=== PATIENT | male | born 1935 | race Caucasian/White ===

== ENCOUNTER 2018-08-21 11:37 | Day surgery (SDC) | payer MEDICARE, SELFPAY ==
--- NOTE | 2018-08-17 18:06 | PCM.HP.BLA ---
History and Physical Date of Admission: 08/21/18 HISTORY AND PHYSICAL ? Eben Pardo 1935 ? REFERRING PHYSICIAN: ??Mariano Ocampo MD ? CHIEF COMPLAINT: ??Rectal Bleeding ? HPI: The patient is a 82 year old male referred for endoscopy. ?Eben notes a 3 day history of blood per rectum. ?He started with a feeling of nausea and abdominal cramping. ?He then noted bright red blood per rectum. ?Since that time has noted blood in the toilet bowl. ?He does not note that the blood is mixed within the stools. ?He is not no tarry stools. ?The first day he had the symptoms he vomited. ?He is uncertain whether the start of this was a case of stomach flu or food poisoning. ?He denied blood in his vomitus. ? ? Eben?has??undergone prior endoscopy. ?He had colonoscopy performed by Dr. Gandhi in 2001 for which she was found to have a tortuous colon. ?He had upper endoscopy for reflux in 2016. ?This was unremarkable. ?He is still noting reflux symptoms. ? He does not appear pale. ?He denies dizziness or other symptoms of hypervolemia or anemia.??Laboratory parameters including a CBC are currently pending. ? The patient is being seen by me today at the request of Dr.?Mariano Ocampo MD?for my opinion and advice regarding blood per rectum with continued bleeding.? ? ? PAST?MEDICAL?HISTORY PAST MEDICAL HISTORY Diagnosis Date ? ?History of Malignant Neoplasm of Skin: BCC &?SCC 09/11/2009 ? Allergic rhinitis 09/18/2009 ? Dr. Mccormack, immunotherapy. ? 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 Cervicalgia 11/29/2005 ? Chronic prostatitis 01/02/2013 ? Depression ? ? Disorder of scapula 08/03/2017 ? Diverticulosis of colon 06/28/2001 ? Tortuous colon ? ELEVATED PROSTATE SPECIFIC ANTIGEN 10/19/2007 ? PSA 3.8 in 11-17, 4.7 in 06-19, 4.3 in 09-19: [facility] rec routine follow up ? Environmental allergies ? ? Gastritis 08/13/1999 ? GENERAL OSTEOARTHROSIS 11/29/2005 ? GOUT NOS 09/03/2008 ? Uric acid 5.8 in 08-20, 7.9 in 10-20 (during acute attack) ? Hearing loss of both ears 01/07/2014 ? Hypertrophy of prostate with urinary obstruction and other lower urinary tract symptoms (LUTS) 10/19/2007 ? Lumbago 09/03/2008 ? MRI : small central herniation at L4-5, mild DDD L4-5 and L5-S1 Rec Tylenol and PT in 08-20: need to review old MRI and consider spinal stenosis Reviewed the importance of weight loss as of 08-20 ? Periodic limb movement disorder (PLMD) 07/19/2007 ? 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 Pulmonary nodules/lesions, multiple 02/08/2012 ? Sleep apnea, obstructive 07/19/2007 ? Can't stand CPAP. I'm not using it anymore. ? Snoring ? PAST?SURGICAL?HISTORY PAST SURGICAL HISTORY Procedure Laterality Date ? APPENDECTOMY ? 1945 ? COLONOSCOP W/ OR W/O [facility] SPEC ? 06/28/2001 ? Colonoscopy ? EGD W/O OR W/BRUSH/WASH ? 08/02/2001 ? EGD ? EGD W/O OR W/BRUSH/WASH ? 12/15/2015 ? EGD ? PAST SURGICAL HISTORY OF ? 2010 ? cysts, skin lesions, basal cell cancer ? PROSTATE BIOPSY ? August 2012 ? ? ? CURRENT?MEDICATIONS ? Current Outpatient Medications: peg 3350-Electrolytes (GOLYTELY) 236-22.74-6.74 -5.86 gram suspension Take 4,000 mL by mouth one time only for 1 dose. Refer to printed prep instructions from your doctor. amLODIPine (NORVASC) 2.5 mg tablet Take 1 tablet by mouth once daily. ranitidine (ZANTAC) 150 mg tablet take 2 tablets by mouth twice a day atorvastatin (LIPITOR) 10 mg tablet Take 1 tablet by mouth daily at bedtime. finasteride (PROSCAR) 5 mg tablet Take 1 tablet by mouth once daily. ketoconazole (NIZORAL) 2 % shampoo WASH FACE AND EARS - AND LET SIT FOR 5 MINUTES as directed ALTERN... ?(REFER TO PRESCRIPTION NOTES). fluticasone 50 mcg/actuation nasal spray Use 2 Sprays in each nostril once daily as needed for Cold/Allergy Symptoms. Rinse mouth after use. VIT C/DL-E AC/LUT/COPPER/ZNOX (PRESERVISION ORAL) Take 1 Each by mouth once daily. Sodium Chloride (OCEAN NASAL) 0.65 % NASAL [place] ? ? No current facility-administered medications for this visit.? ? ALLERGIES:?Gabapentin; Mobic [Meloxicam]; Sulfa (Sulfonamide Antibiotics) ? PERSONAL HISTORY:? 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 ??Substance and Sexual Activity ?Alcohol use: No ?Drug use: No ?Sexual activity: Never ??Other Topics ?Concerns: ?Not on file ??Social History Narrative ?Not on file ?? ? FAMILY HISTORY:? FAMILY?HISTORY FAMILY HISTORY Problem Relation Age of Onset ? Heart Father ?ID age 60s ? Cancer Mother ?Pt states does not remember type ? Prostate Cancer Brother ? ? GI Sister ?gastrectomy ? other (fibromyalgia) Sister ? ? No Known Problems Other ?Lung disease ? ? REVIEW OF SYMPTOMS: ??The review of systems data was entered by the nurse and reviewed by me ? There are no exam notes on file for this visit. ? ? PHYSICAL EXAMINATION: ? General: ?The patient is 82 year old male, well nourished, well hydrated in no acute distress. ?The patient is oriented to time, place, and person. ? VITALS:?Blood pressure 124/66, pulse 60, temperature 37 ?C (98.6 ?F), temperature source Temporal Artery, resp. rate 18, weight 83.5 kg (184 lb).?Body mass index is 28.39 kg/m?.? ? HEENT: ?Normal cephalic, ataumatic, pupils are equally round, sclera are anicteric, mucous membranes are moist, oropharynx is clear. ?Neck has no masses, asymmetry or lymphadenopathy. ?Thyroid is unremarkable. ? Respiratory: ?Clear to auscultation and percussion. ?Normal respiratory excursion and pattern. ? Cardiac: ?Examination is regular rate and rhythm. ? Abdominal exam: ?Soft, nontender, ?with no palpable masses. ?No hepatosplenomegaly. ?No palpable hernias. ? Rectal exam:?exam deferred ? Extremities: ?no clubbing, cyanosis or edema. ?No adenopathy. ? Other: ? LABORATORY VALUES: As Noted ? RADIOLOGIC STUDIES: ?As Noted ? Assessment ? IMPRESSION:?Rectal bleeding, Reflux Disease ? PLAN: ?I plan to perform upper and lower?endoscopy. ??We discussed the risks and benefits of the planned endoscopy. ?I have informed the patient that complications can occur including failure to complete the endoscopy and perforation. ?The patient had the opportunity to ask questions concerning the planned endoscopy. ?My staff has also explained the procedure to the patient in understandable terms and has given the patient printed material concerning the procedure. ?The patient freely consents to surgery. ? I plan to use golytely bowel preparation for endoscopy ? I plan for monitored anesthetic care.?-?given the fact that the patient had tortuous colon. ?Last attempt at endoscopy. ? Diagnoses:?(K62.5) Rectal bleeding ?(primary encounter diagnosis) (K21.9) Gastroesophageal reflux disease without esophagitis ? My findings have been communicated to Dr.??Mariano Ocampo MD?via shared medical record. ?This note will be forwarded to Dr. Mariano Ocampo MD. ?? Return to Clinic: The patient is instructed to follow-up with me?after the testing has been completed. ? Hardik Maza MD
[2018-08-21] VITALS (7 sets, daily range): BP systolic 119–131; BP diastolic 62–75; PULSE 60–88; RESP 16–18; TEMP 36.1–36.2; O2SAT 96–100; BMI 28.3
--- NOTE | 2018-08-21 12:45 | COLBX_PTH ---
PATIENT: EVERTON JORGENSEN LOC: EN U#:[id number] AGE/SX: 82/M ROOM: RE08/21/[address]: Dr. Hardik Maza MD : 1935 BED: DIS: 08/21/2018 SPEC #: [id number] RECD: 08/21/18 15:33 STATUS: JOLIE GHULAM #: [id number] BELEN: 08/21/18 12:[address]: Hardik Maza DEPT: SURGICAL PATHOLOGY RECD BY: lEio Butler ENTERED: 08/22/18 09:18 SP TYPE: COLON BX OTHR DR: Dr. Mariano Ocampo MD Tissues: A - Gastric mucous membrane B - COLON BIOPSY C - Sigmoid colon biopsy Procedures: Surgery Specimen Level IV HEADER OPERATION: [place] [place] DIAGNOSIS: GERD, rectal bleeding TISSUE SUBMITTED: A - Antral biopsy for histo and H. pylori, B - Biopsy at 40 cm, mild colitis, C - Polyps distal sigmoid MICROSCOPIC DIAGNOSIS A. Gastric antrum, biopsy: Chronic gastritis, mild to moderate. See comment. B. Colon at 40 cm, biopsy: Focal mucosal hemorrhage. No evidence of colitis. C. Distal sigmoid colon polyp, biopsy: Fragments of inflammatory polyp. AM:ivonne 08/23/18 COMMENT A. The results of immunohistochemistry for Helicobacter pylori will be reported separately ([id number]). B. Clinical correlation is suggested. MICROSCOPIC DESCRIPTION Slides are reviewed. GROSS DESCRIPTION A - Received in fixative is one container labeled with the patient's name and designated antral biopsy. The specimen consists of one irregular fragment of light hsieh soft tissue that measures 0.4 x 0.3 x 0.1 cm. The specimen is totally submitted in one cassette. B - Received in fixative is one container labeled with the patient's name and designated biopsy at 40 cm, mild colitis. The specimen consists of two irregular fragments of light hsieh soft tissue that in aggregate measure 0.6 x 0.3 x 0.1 cm. The specimen is totally submitted in one cassette. C - Received in fixative is one container labeled with the patient's name and designated distal sigmoid polyps. The specimen consists of two irregular fragments of light hsieh soft tissue that in aggregate measure 0.5 x 0.3 x 0.2 cm. The specimen is totally submitted in one cassette. / SJ:rg 08/22/18 TC:3 CPT: 42488 x3
--- NOTE | 2018-08-21 12:45 | IMM_PTH ---
PATIENT: EVERTON JORGENSEN LOC: DIANE U#:[id number] AGE/SX: 82/M ROOM: RE08/21/[address]: Dr. Hardik Maza MD : 1935 BED: DIS: 08/21/2018 SPEC #: [id number] RECD: 08/22/18 11:14 STATUS: JOLIE REQ #: [id number] BELEN: 08/21/18 12:[address]: Hardik Maza DEPT: IMMUNOHISTOCHEMISTRY RECD BY: Laine Figueroa ENTERED: 08/22/18 11:14 SP TYPE: IMMUNO OTHR DR: Dr. Mariano Ocampo MD Tissues: A - Stomach, NOS Procedures: H Pylori (initial) PHYSICIAN & INSTITUTION [place] [address] SPECIMEN INFORMATION: Tissue Source: A - Antral biopsy Clinical Info: GERD; rectal bleeding Specimen Number: [id number] CPT code: 44457 METHODOLOGY: Deparaffinized sections of prefer/formalin-fixed tissue or PAP/DQ stained slides are incubated with monoclonal/polyclonal antibodies/oligonucleotide probes. Localization is made via biotin free immunoperoxidase method. Appropriate controls are performed and reacted as expected. Results on target cell population are indicated in the following table: RESULTS: ANTIBODY / CLONE RESULT Block A H Pylori (polyclonal) negative These tests were developed and their performance characteristics determined by [facility]. They may not have been cleared or approved by the U.S. Food and Drug Administration. The FDA has determined that such clearance or approval is not necessary. INTERPRETATION: A. Antral biopsy: Negative for Helicobacter pylori organisms. AM:ivonne 08/23/18
--- NOTE | 2018-08-21 13:37 | OP.ENDO_ITS ---
08/21/2018 Mariano Ocampo [address] [place] [address] Re : Upper GI endoscopy procedure for Eben Pardo Dear Dr. Ocampo This procedure was performed on Tuesday, August 21, 2018. My impressions and recommendations are as follows: Impressions : - Normal examined jejunum. - Normal examined duodenum. - Gastritis. Biopsied. - Normal gastric fundus. - Normal gastroesophageal junction. Recommendations : - Await pathology results. - Return to my office in 4 days. - Continue present medications. My findings are described in the full procedure note, which is enclosed. If I can be of further assistance, please feel free to contact me at Doctor phone number(s): , Work: . Sincerely, Hardik Maza MD 08/21/2018 1:36:53 PM This report has been signed electronically.
--- NOTE | 2018-08-21 13:39 | OP.ENDO_ITS ---
08/21/2018 Mariano Ocampo [address] [place] [address] Re : Colonoscopy procedure for Eben Pardo Dear Dr. Ocampo This procedure was performed on Tuesday, August 21, 2018. My impressions and recommendations are as follows: Impressions : - Scattered moderate inflammation was found in the sigmoid colon secondary to colitis. Biopsied. - Two small polyps at the recto-sigmoid colon, removed with a hot snare. Resected and retrieved. - The distal rectum and anal verge are normal on retroflexion view. Recommendations : - Discharge patient to home. - Resume previous diet. - Continue present medications. - Return to my office in 4 days. - Repeat colonoscopy for surveillance based on pathology results. My findings are described in the full procedure note, which is enclosed. If I can be of further assistance, please feel free to contact me at Doctor phone number(s): , Work: . Sincerely, Hardik Maza MD 08/21/2018 1:39:26 PM This report has been signed electronically.
[2018-08-21 15:02] LABS: Absolute Lymphocyte Count 1.38 X10^3/ul (0.83-4.51); Absolute Neutrophil Count 13.4 X10^3/uL (2.0-7.7); Basophil# 0.04 X10^3/uL; Basophil% 0.3 % (0-1); Eosinophil# 0.09 X10^3/uL; Eosinophils% 0.6 % (0-5); Hematocrit 45.7 % (40-54); Hemoglobin 15.3 g/dl (13.0-16.5); Lymphocyte # 1.38 X10^3/ul (4.0); Lymphocyte % 8.6 % (19-41); Mean Corp Hgb Conc 33.5 g/gl (32-36); Mean Corpuscular Hgb 30.7 pg (27.0-32.0); Mean Corpuscular Volume 91.8 fL (80-94); Monocyte# 1.01 X10^3/uL; Monocyte% 6.3 % (0-10); Neutrophil # 13.39 X10^3/uL (2.7-7.7); Neutrophil % 83.8 % (47-70); Platelet Count 263 K/mm3 (150-450); RBC Distribution Width CV 13.9 % (11.6-14.6); RBC Distribution Width SD 46.1 fl (35.1-43.9); Red Blood Count 4.98 M/mm3 (4.6-6.2)
[2018-08-21 15:03] LABS: POSITIVE COUNT NO; POSITIVE DIFFERENTIAL NO; POSITIVE MORPHOLOGY NO
== END 2018-08-21 14:58 | disposition home or self-care (01) ==
LOC: EN 11:40 → AC 11:44
PROVIDERS: Family Provider Internal Medicine; PCP Internal Medicine; Referring Provider Internal Medicine; Visit Provider Surgery
PROC: 0DJD8ZZ Inspection of Lower Intestinal Tract, Via Natural or Artificial Opening Endoscopic (ICD-10-PCS; CPT 45378; principal; 2018-08-21 12:40)
DX: D12.5 Benign neoplasm of sigmoid colon (principal); K57.30 Diverticulosis of large intestine without perforation or abscess without bleeding; K29.50 Unspecified chronic gastritis without bleeding; K21.9 Gastro-esophageal reflux disease without esophagitis; N40.1 Benign prostatic hyperplasia with lower urinary tract symptoms; N41.1 Chronic prostatitis; N13.8 Other obstructive and reflux uropathy; M10.9 Gout, unspecified; M79.7 Fibromyalgia; J30.9 Allergic rhinitis, unspecified; G47.61 Periodic limb movement disorder; G47.33 Obstructive sleep apnea (adult) (pediatric); F32.9 Major depressive disorder, single episode, unspecified; Z79.899 Other long term (current) drug therapy; Z88.8 Allergy status to other drugs, medicaments and biological substances; Z88.2 Allergy status to sulfonamides
CPT/HCPCS: 43239; 45380; 45385; 85025; 88305; 88342; J7120; J2405

== ENCOUNTER 2020-04-03 13:35 | Outpatient (RCR) | payer MEDICARE, SELFPAY ==
[2018-08-21 12:00] VITALS: BMI 28.3
== END 2020-04-03 23:59 ==
LOC: IMMUN 13:35
PROVIDERS: PCP Internal Medicine; Visit Provider Family Medicine
DX: Z23 Encounter for immunization (principal)
CPT/HCPCS: 0011A; 0012A; 91301

== ENCOUNTER → 2020-04-21 | Outpatient (CLI) | payer MEDICARE, SELFPAY ==
[2018-08-21 12:00] VITALS: BMI 28.3
== END | disposition home or self-care (01) ==
LOC: LABSPEC 15:09
PROVIDERS: PCP Internal Medicine; Referring Provider Otolaryngology Otolaryngology/Facial Plastic Surgery; Visit Provider Otolaryngology Otolaryngology/Facial Plastic Surgery
DX: H92.12 Otorrhea, left ear (principal)
CPT/HCPCS: 87070; 87075; 87077; 87106; 87107; 87205

== ENCOUNTER → 2022-09-08 | Outpatient (CLI) | payer MEDICARE, SELFPAY ==
--- NOTE | 2022-09-08 11:11 | RAD_ITS ---
STUDY: X-RAY CHEST REASON FOR EXAM: Male, 86 years old. sob TECHNIQUE: Frontal and lateral views of the chest. COMPARISON: None. FINDINGS: The lungs are clear and expanded. There is no demonstrated pleural abnormality. Normal size heart. Normal mediastinum and charles. Normal visualized pulmonary arteries. Normal visualized aortic arch and descending thoracic aorta. There are diffuse degenerative changes of the visualized thoracic spine. Normal visualized ribs, clavicles, and shoulders. There is no demonstrated abnormality of the visualized soft tissue structures of the upper abdomen. RAD/Chest PA and Lateral IMPRESSION: No definite acute or significant abnormality seen. Electronically Signed: Rodrick Ramsey MD at 16:51 EDT ,
[2022-09-08 11:40] LABS: Absolute Lymphocyte Count 1.55 X10^3/uL (0.83-4.51); Absolute Neutrophil Count 7.5 X10^3/uL (2.0-7.7); Basophil# 0.09 X10^3/uL; Basophil% 0.9 % (0-1); Eosinophil# 0.11 X10^3/uL; Eosinophils% 1.1 % (0-5); Hematocrit 42.9 % (40-54); Hemoglobin 13.9 g/dL (13.0-16.5); Lymphocyte # 1.55 X10^3/ul (0.83-4.51); Mean Corp Hgb Conc 32.4 g/dL (32-36); Mean Corpuscular Hgb 31.2 pg (27.0-32.0); Mean Corpuscular Volume 96.4 fL (80-94); Monocyte# 1.02 X10^3/uL; Monocyte% 9.9 % (0-10); NRBC Flagged by Analyzer 0 % (0-5); Neutrophil # 7.46 X10^3/uL (2.7-7.7); Neutrophil % 72.4 % (47-70); Platelet Count 273 K/mm3 (150-450); RBC Distribution Width CV 13.4 % (11.6-14.6); RBC Distribution Width SD 47.4 fl (35.1-43.9); Red Blood Count 4.45 M/mm3 (4.6-6.2); White Blood Count 10.3 K/mm3 (4.4-11.0)
[2022-09-08 12:13] LABS: Anion Gap 1 (5-15); BUN 20 mg/dL (7-18); BUN/Creat Ratio 19.2 RATIO (10-20); Calcium,Total 9.2 mg/dL (8.5-10.1); Chloride 111 mmol/L (98-107); Creatinine, Serum 1.04 mg/dL (0.70-1.30); EST Glomerular Filtration Rate 72 mL/min (>60); Est Glom Filt Rate - Afr Amer 87 mL/min (>60); Glucose 95 mg/dL (74-106); Potassium 4.5 mmol/L (3.5-5.1); Sodium Level 141 mmol/L (136-145)
== END | disposition home or self-care (01) ==
PROVIDERS: PCP Internal Medicine; Referring Provider Internal Medicine Cardiovascular Disease; Visit Provider Internal Medicine Cardiovascular Disease
DX: G47.33 Obstructive sleep apnea (adult) (pediatric) (principal); R06.09 Other forms of dyspnea; I35.0 Nonrheumatic aortic (valve) stenosis; E78.2 Mixed hyperlipidemia; I10 Essential (primary) hypertension
CPT/HCPCS: 36415; 71046; 80048; 85025

== ENCOUNTER 2022-09-13 09:29 | Day surgery (SDC) | payer MEDICARE, SELFPAY ==
[2022-09-10 08:04] VITALS: BMI 26.9
--- NOTE | 2022-09-13 12:22 | CL.D_ITS ---
Patient Name: EVERTON JORGENSEN Study Date: 09/13/2022 Performing: Jasper Gee MD Ht: 67 inches 170.18 cm : 1935 Wt: 172 lbs 78.02 kg Age: 86 Gender: male BSA: 1.9 PROCEDURE(S) PERFORMED DC01-(49150)LHC/COR/LV CLINICAL PROFILE AND INDICATIONS Indications: Suspected CAD Heart Failure: None Stress/Imaging Stress/Image Study Performed: No CAD Presentations: Unstable angina. 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 Consider high risk PCI versus coronary bypass surgery. DESCRIPTION OF PROCEDURE The patient arrived to the procedure lab. The risks and benefits of the procedure as well as a full description of our services here and current unavailability of surgical backup were fully explained to the patient and/or their significant other prior to the catheterization. The Timeout was completed, verifying the correct patient and procedure. The patient's procedural site was prepped and draped in the usual fashion. Local anesthetic was given subcutaneously to right radial region with Lidocaine 2%. Using a modified Seldinger technique, arterial access was obtained via the right radial artery, a 6Fr sheath was inserted. Left Coronary Artery selective angiography was performed in multiple views using a 5 Fr. 4.0 [place] catheter. Right Coronary Artery selective angiography was then performed in multiple views using a 5 Fr. 4.0 [place] catheter. Left Ventriculography was performed in VO projection using a 5 Fr. Pigtail catheter. LV to AO pullback pressures were then recorded.The arterial sheath was pulled and a TR Band was applied for hemostasis CORONARY ANGIOGRAPHY DOMINANCE: Right Dominant LEFT HEART ASSESSMENT Left Ventricular Ejection Fraction: by LV Gram 55 % Normal Left Ventricular systolic function LEFT MAIN: Angiographically normal LEFT ANTERIOR DESCENDING ARTERY: Left anterior descending artery is a medium size vessel with at least moderate calcification and a mid 90% stenotic lesion with the takeoff of a diagonal branch which has a long near subtotal occlusion. CIRCUMFLEX ARTERY: Nondominant circumflex artery with the first obtuse marginal branch with a long 80% stenotic lesion. RIGHT CORONARY ARTERY: Dominant large right coronary artery with diffuse disease proximally with 40 to 50% stenosis and then the vessel bifurcating to posterior descending artery and 2 posterolateral vessels with an 80% long posterolateral stenosis. VALVE FINDINGS: Aortic Valve Stenosis - mild COMPLICATIONS No Complications PROCEDURE MEDICATIONS Versed 1 mg IV Fentanyl 50 mcg IV Aspirin (325mg) 1 Tabs PO @ 09/13/2022 10:16:57 Heparin given IA 09/13/2022 11:36:53 Verapamil 2.5mg, Ntg 100mcgs, 3000 units of Heparin given IA 09/13/2022 11:36:53 SUMMARY OF HEMODYNAMIC DATA Time AIR REST ECG 09:53:51 AO 141/75 (103) SA 11:37:48 LV 123/12, 17 11:44:23 LV 134/12, 18 11:44:29 LV 128/12, 22 11:45:16 LV 131/13, 23 11:45:22 LVp 131/13, 19 11:45:27 AOp 132/63 (92) 11:45:32 AIR REST 12:13:43 Signed By Jasper Gee MD On 09/13/2022 12:22:00 Jasper Gee MD
== END 2022-09-13 13:40 | disposition home or self-care (01) ==
PROVIDERS: PCP Internal Medicine; Referring Provider Internal Medicine Cardiovascular Disease; Visit Provider Internal Medicine Cardiovascular Disease
DX: I25.110 Atherosclerotic heart disease of native coronary artery with unstable angina pectoris (principal); I35.0 Nonrheumatic aortic (valve) stenosis; Z79.899 Other long term (current) drug therapy; I10 Essential (primary) hypertension; E78.2 Mixed hyperlipidemia; I25.84 Coronary atherosclerosis due to calcified coronary lesion
CPT/HCPCS: 93458; 99152; 99153; J7040; Q9967; C1769; C1894

== ENCOUNTER 2022-09-14 14:49 | Emergency (ER) | payer MEDICARE, SELFPAY ==
[2022-09-14 14:50] VITALS: BP 129/57; PULSE 72; RESP 15; TEMP 36.4; O2SAT 98; BMI 26.6
--- NOTE | 2022-09-14 17:54 | EDS_ITS ---
HPI History of Present Illness Chief Complaint: Other, Pain/Inj Narrative Narrative: 86-year-old male who had a cardiac catheterization yesterday by Dr. Gee presenting for evaluation of left forearm swelling. He states he had an IV in the left forearm and had a dressing on this until about 1-2 o'clock today and when he took it off he noticed there was some swelling on the area. When he arrived to the ER a dressing was placed over this as well as a an [place] bandage which did help the swelling. Patient states is not significantly painful. He had a cardiac catheterization to his right forearm. This site looks good still to him. There is a clear bandage with 1 dot of blood where the cath was. He had no swelling or pain in the right forearm. Patient is not anticoagulated. [facility] Medical History Bruit of left carotid artery Dyspnea on exertion Essential hypertension GERD (gastroesophageal reflux disease) Mixed hyperlipidemia Nonrheumatic aortic (valve) stenosis MARISOL (obstructive sleep apnea) Home Medications Ranitidine [Zantac] 300 mg PO BID 08/18/18 [History Last Taken Unknown] acetaminophen 500 mg tablet 500 - 1,000 mg PO Q6H PRN PRN Pain 08/18/18 [History Last Taken Unknown] amlodipine 2.5 mg tablet 2.5 mg PO DAILY 08/18/18 [History Last Taken 09/13/22] atorvastatin 10 mg tablet 10 mg PO QHS 08/18/18 [History Last Taken Unknown] finasteride 5 mg tablet 5 mg PO DAILY 08/18/18 [History Last Taken Unknown] fluticasone propionate 50 mcg/actuation nasal spray,suspension 1 spray BID PRN ALLERGY SX 08/18/18 [History Last Taken Unknown] ufsqzovw-oab-yumvm acid 0.4 mg-lycopene 300 mcg-lutein 250 mcg tablet (Centrum Silver) 1 ea PO DAILY 08/18/18 [History Last Taken Unknown] vit C 250 mg-vit E 90 mg-zinc 40 mg-copper 1 ai-keolll-eaicpf capsule (PreserVision AREDS-2) 1 ea PO BID 08/18/18 [History Last Taken Unknown] omeprazole 20 mg capsule,delayed release 20 mg PO DAILY 09/08/22 [History Last Taken Unknown] ticagrelor 90 mg tablet 90 mg PO BID #60 tabs 09/13/22 [Rx Last Taken Unknown] Allergy/AdvReac Type Severity Reaction Status Date / Time meloxicam [From Mobic] Allergy Unknown Verified 09/08/22 10:03 Sulfa (Sulfonamide Allergy Unknown Verified 09/08/22 10:03 Antibiotics) gabapentin AdvReac Unknown Shortness Verified 09/08/22 10:03 of breath Family History Father Myocardial infarction, Onset Age: 60 Brother Heart disease Sister Heart disease Surgical History History of appendectomy History of prostate biopsy Social History Smoking Status: Never smoker alcohol intake: never ROS ROS ED Constitutional Constitutional ED: Denies chills, fever(s) or sweats Eyes Eyes: Denies blurry vision or change in vision ENT ENT ED: Denies ear pain or sore throat Cardiovascular Cardiovascular: Denies chest pain, palpitations or racing heartbeat Respiratory/Chest Respiratory/Chest: Denies cough, dyspnea or sputum Gastrointestinal Gastrointestinal: Denies abdominal pain, constipation, diarrhea, nausea or vomiting Genitourinary Genitourinary ED: Denies dysuria, hematuria or urinary frequency Musculoskeletal Musculoskeletal: Denies arthralgias, myalgias or neck pain Integumentary Reports other Details: Left forearm swelling ; Denies abscess, Abrasions or rash Neurologic Neurologic: Denies headache(s), paresthesias or weakness Psychiatric Psychiatric: Denies anxiety, depression, suicidal ideation or suicidal thoughts Endocrine Endocrinology: Denies polydipsia or polyuria EXAM Physical Exam Const Vital Signs: 09/14/22 14:50 Temperature 97.5 F L Temperature Source Temporal Pulse Rate 72 Respiratory Rate 15 Blood Pressure 129/57 H Blood Pressure Mean 81 Pulse Ox 98 Oxygen Delivery Method Room Air Positive well nourished General Appearance ED: NAD HEENT Reports moist mucous membranes Eyes PERRL Resp normal respiratory effort Cardio regular rate and regular rhythm Extremity Extremity Narrative: There are some swelling over the left volar forearm where previous IV was established. There are some bruising here as well as some dependent edema into the left hand. Left hand neurovascular intact brisk cap refill to all 5 fingers. Right forearm has a dressing overlying the previous cardiac catheter site. This looks clean, dry, intact. Neuro oriented x3 and CN's II-XII intact bilaterally Sensorium / Orientation: alert Motor Exam: strength 5/5 throughout Psych mental status grossly normal Skin Skin Narrative: As described above MDM MDM MDM Narrative Medical decision making narrative: Patient presenting for evaluation of left forearm swelling. He states this is where he had his IV in the left forearm. He states he took the dressing off and noted it was swollen. He had some dependent edema and bruising into the left hand but denies any new trauma. No numbness or tingling. Patient's pressure dressing was reapplied after I examined it. I recommended that he continue to keep pressure dressing on this and ice and elevate it is much as possible. I counseled him on dependent edema and that the bruising may spread. If he has any significant swelling of the hematoma he should return. I did order him an outpatient DVT study for the left upper extremity but unfortunately cannot do that today on 14 September. He is given return precautions and will be able to get this ultrasound done tomorrow. He is amenable to this plan. Discharged in stable condition. Impression: 1. Left forearm swelling Discharge Plan Triage Chief Complaint: Other, Pain/Inj ED Provider: Bryce Mina Dx/Rx/DC Orders Instructions: ED Post Op Wound Check, General Prescriptions: No Action omeprazole 20 mg capsule,delayed release(DR/EC) 20 mg PO DAILY atorvastatin 10 MG tablet 10 mg PO QHS amlodipine 2.5 MG tablet 2.5 mg PO DAILY acetaminophen 500 MG tablet 500 - 1,000 mg PO Q6H PRN PRN (Reason: Pain) fluticasone propionate 1 SPRAY spray,suspension 1 spray NASAL BID PRN (Reason: ALLERGY SX) finasteride 5 MG tablet 5 mg PO DAILY Centrum Silver 1 EACH tablet 1 ea PO DAILY PreserVision AREDS-2 1 EACH capsule 1 ea PO BID Ranitidine [Zantac] 150 MG tablet 300 mg PO BID ticagrelor 90 mg tablet 90 mg PO BID Qty: 60 1RF Other Ambulatory Orders: Venous Duplex US, Unilateral (Stat) Facility: [facility] - Location: [facility] Ordered By: Dr. Bryce Mina Primary Care Provider: Mariano Ocampo Referrals: Jasper Gee MD [Med Staff - Active Staff] - 2 Days for wound check Mariano Ocampo MD [Primary Care Provider] - Disposition Disposition: Home, Self Care Discharge Date/Time: 09/14/22 17:06
== END 2022-09-14 17:06 | disposition home or self-care (01) ==
PROVIDERS: Emergency Provider Student in an Organized Health Care Education/Training Program; PCP Internal Medicine; Visit Provider Student in an Organized Health Care Education/Training Program
DX: R60.0 Localized edema (principal); S50.12XA Contusion of left forearm, initial encounter; I10 Essential (primary) hypertension; E78.2 Mixed hyperlipidemia; Z79.02 Long term (current) use of antithrombotics/antiplatelets; Z79.899 Other long term (current) drug therapy
CPT/HCPCS: 99281

== ENCOUNTER → 2022-09-15 | Outpatient (CLI) | payer MEDICARE, SELFPAY ==
--- NOTE | 2022-09-15 12:43 | VDUE_ITS ---
Reason For Study: Left arm pain Left Proximal Left jugular vein is spontaneous, widely patent, phasic, with no intraluminal echogenicity noted. Left subclavian vein is spontaneous, widely patent, phasic, with no intraluminal echogenicity noted. Left Arm Left axillary vein is spontaneous, patent, phasic, competent, compressible and demonstrates augmentation. Left brachial vein is compressible. Left cephalic vein is compressible. Left basilic vein is compressible. Left Lower Arm Left radial vein is compressible. Left ulnar vein is compressible. Patient Safety Preliminary report given to [facility]. VL/Venous Duplex US, Unilateral Interpretation Summary No evidence for acute deep venous thrombosis[left] upper extremity with patent and compressible cephalic and basilic veins. Imaging described as area of concern demonstrates a nondescript area in the deep subcutaneous tissue of heterogenous texture with size not determined s econdary to the extent. Etiology not determined. Clinical correlation or additional imaging if appropriate recommended. Ordering Physician: Bryce Mina Referring Physician: Mariano Ocampo M.D. Performed By: Idania Salguero RVT ???
== END | disposition home or self-care (01) ==
PROVIDERS: PCP Internal Medicine; Referring Provider Student in an Organized Health Care Education/Training Program; Visit Provider Student in an Organized Health Care Education/Training Program
DX: M79.602 Pain in left arm (principal)
CPT/HCPCS: 93971

== ENCOUNTER → 2022-10-26 | Outpatient (CLI) | payer MEDICARE, SELFPAY ==
--- NOTE | 2022-10-26 10:59 | ART_ITS ---
Reason For Study: CLAUDICATION/PVD Procedure A bilateral lower extremity continuous wave Doppler with analog waveform analysis,segmental pressures,and ankle brachial indexes without exercise. Left Segmental Pressures Left brachial= 116mmHg. Left posterior tibial artery = 147mmHg. Left dorsalis pedis artery = 115mmHg. The left posterior tibial artery waveforms are triphasic. The left dorsalis pedis waveforms are triphasic. Right Segmental Pressures Right brachial= 119mmHg. Right posterior tibial artery = 140mmHg. Right dorsalis pedis artery = 134mmHg. The right posterior tibial artery waveforms are triphasic. The right dorsalis pedis waveforms are triphasic. Indices The right resting ankle brachial index is 1.18. The right ankle brachial index by the posterior tibial artery is 1.18. The right ankle brachial index by the dorsalis pedis is 1.13. The left resting ankle brachial index is 1.24. The left ankle brachial index by the posterior tibial artery is 1.24. The left ankle brachial index by the dorsalis pedis is 0.97. VL/Lower Ext Art Exam w/o Exercis Interpretation Summary Normal right lower extremity PT and DP index of 1.18 and 1.13 respectively Normal left lower extremity PT and DP index of 1.24 and 0.97 respectively Triphasic Doppler waveforms are noted bilaterally Ordering Physician: Eulalia Franks Referring Physician: Mariano Ocampo Performed By: Alicia Rizo RVT, RDCS
== END | disposition home or self-care (01) ==
LOC: CVS 10:58
PROVIDERS: PCP Internal Medicine; Referring Provider Physician Assistant Medical; Visit Provider Physician Assistant Medical
DX: I73.9 Peripheral vascular disease, unspecified (principal); R09.89 Other specified symptoms and signs involving the circulatory and respiratory systems
CPT/HCPCS: 93923

== ENCOUNTER → 2022-10-27 | Outpatient (CLI) | payer MEDICARE, SELFPAY ==
--- NOTE | 2022-10-27 13:08 | CR.HP_ITS ---
CR - History & Physical General Arrival date:: 10/27/22 Arrival time:: 13:09 Date of Referral:: 09/21/22 Date of CR Evaluation:: 10/27/22 Referring Physician: Jasper Gee Primary Diagnosis: TAVR, PCI with coronary stenting History of Present Cardiac Event Onset Date Heart valve replacement or repair:: Yes PTCA or coronary stenting:: Yes Vessel: LAD OM1 RPDA Medications Ambulatory Orders Medication Instructions Recorded acetaminophen 500 mg tablet 500 - 1,000 mg PO Q6H PRN PRN Pain 08/18/18 amlodipine 2.5 mg tablet 2.5 mg PO DAILY 08/18/18 finasteride 5 mg tablet 5 mg PO DAILY 08/18/18 fluticasone propionate 50 1 spray BID PRN ALLERGY SX 08/18/18 mcg/actuation nasal spray,suspension unrqagsq-wbr-xllyb acid 0.4 1 ea PO DAILY 08/18/18 mg-lycopene 300 mcg-lutein 250 mcg tablet (Centrum Silver) vit C 250 mg-vit E 90 mg-zinc 40 1 ea PO BID 08/18/18 mg-copper 1 op-cnkrln-yjllxp capsule (PreserVision AREDS-2) omeprazole 20 mg capsule,delayed 20 mg PO DAILY 09/08/22 release ticagrelor 90 mg tablet 90 mg PO BID #60 tabs 09/13/22 aspirin 81 mg tablet,delayed 81 mg PO DAILY 10/22/22 release (Adult Low Dose Aspirin) atorvastatin 10 mg tablet 80 mg PO QHS 10/22/22 metoprolol tartrate 25 mg tablet 25 mg PO DAILY 10/22/22 Allergies Allergies meloxicam [From Mobic] Allergy (Verified 10/22/22 13:05) Unknown Sulfa (Sulfonamide Antibiotics) Allergy (Verified 10/22/22 13:05) Unknown gabapentin Adverse Reaction (Unknown, Verified 10/22/22 13:05) Shortness of breath Sleep Disorder Evaluation Hx of Sleep Apnea: Yes Do you snore loudly (louder than talking or can be heard through closed doors)?: No (UNSURE) Do you often feel tired/ fatigued/ sleepy during daytime?: Yes (has seen improvement since stents) Has anyone observed you stop breathing during sleep?: No History of Hypertension (for STOP score): Yes STOP Results: Positive Advanced Directives Advanced Directives Power of Certified Neurodiagnostic Technologist: Yes Living Will: Yes Advance Directives Information Provided: No Advance Directives on File: No DNR Order?:: No Past Medical History Covid-19 Screening Physicial Symptoms Other Clinical Concerns Exposure Risk Pertinent Comorbidities 65 years or older:: Yes Lives in Assisted Living facility:: No Has a chronic lung disease or moderate to severe asthma:: No Has a serious heart condition:: Yes Immunocompromised:: No Severely obese (Body Mass Index of 40 or higher):: No Diabetic:: No Has chronic kidney disease undergoing dialysis:: No Has liver disease:: No Past Medical Illness Medical History Bruit of left carotid artery Dyspnea on exertion Essential hypertension GERD (gastroesophageal reflux disease) Mixed hyperlipidemia Nonrheumatic aortic (valve) stenosis MARISOL (obstructive sleep apnea) Past Surgical History Surgical History History of appendectomy History of prostate biopsy Hx of heart artery stent Family History Summary Family History Father Myocardial infarction, Onset Age: 60 Brother Heart disease Sister Heart disease Social History Smoking History Smoking Status: Never smoker Hx Smoking Exposure: No Alcohol Use Alcohol Usage: No Substance Abuse Hx Substance Use: No 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 Hobbies, Recreation, Social Activities Hobbies: Sports (golf), Farm, Woodworking and Walking (L leg numbness) Recreational Activities: I am able to engage in most, but not all activities Social Environment Status Marital Status: Current Living Arrangements Living Environment:: Family (daughter) and Spouse Children How many children do you have?: 4 Do any of your children live nearby?: Yes Safety Do you feel safe in your surroundings?: Yes Assistance Do you need any assistance at home?: no Review of Systems Review of Systems Hints Review of Present Symptoms: Reports Shortness of Breath at Rest, Shortness of Breath with Exertion, Fatigue and Appetite - Special Diet (low sodium); Denies PVD, Operative Discomfort, Angina, Wound Healing, Dizziness/Lightheadedness, Heart Arrhythmia/Irregularities, Appetite - Normal, Sleep - Normal or Sexual Changes Pain Is Patient Pain Free?: No Pain Location: back Pain Level: 8/10 (can get up to an 8 or 9 depending on the day) Risk Factor Assessment Chief Complaint Chief Complaint: TAVR, PCI with coronary stenting Vital Signs Respiratory Rate: 14 Pulse Ox: 97 Blood Pressure: 100/58 Pulse Pulse Rate: 46 Hypertension How long have you been treated?: several years ago On medication(s)?: yes Obesity Height: 5 ft 7 in Weight:: 167 lb Weight in Pounds: 167.0 lbs Body Mass Index (BMI): 26.2 Nutritional Referral for Obesity: No Physical Inactivity Physical Inactivity: Recreational activity Risk Stratification Risk Guidelines: Lowest Risk: Risk Factor for Smoking and Risk Factor for Depression, Moderate Risk: Risk Factor for Diabetes, Risk Factor for Obesity and Risk Factor for Sedentary Lifestyle and Highest Risk: Risk Factor for Dyslipidemia and Risk Factor for Hypertension For Smoking Smoking Risk Guidelines For Dyslipidemia Dyslipidemia Risk Guidelines For Diabetes Mellitus Diabetes Risk Guidelines For Obesity/Overweight Obesity/Overweight Risk Guidelines For Hypertension Hypertension Risk Guidelines For Sedentary Lifestyle Sedentary Lifestyle Risk Guidelines For Depression Depression Risk Guidelines Family History Family History Father Myocardial infarction, Onset Age: 60 Brother Heart disease Sister Heart disease Motivation Motivation to Participate On a scale of 1 to 10, how prepared are you to commit to attending program?: 9 What do you see as barriers to successfully being able to complete the program?: back pain What do you see as the benefits of succesfully completing the program? In other words, what do you hope to get out of participating in the program?: hopes he can feel better and have more energy Are there issues you are dealing with that will interfere with completing the program?: back pain Do you have a spouse or signficant other, family or friends who will help supp ort you to complete the program?:
[2022-10-27 13:37] VITALS: BP 100/58; PULSE 46; RESP 14; O2SAT 97
--- NOTE | 2022-10-27 13:37 | CR.ITP_ITS ---
Diagnosis General Information Admitting Diagnosis: Tavr/ pci with coronary stenting Personal Learning Style:: Audio/Visual and Demonstration Barriers to Learning: Hearing Impairment Stage of change r/t lifestyle modifications:: Contemplation Gave educational material for:: Treating Heart Disease, How The Heart Works, What it means to have Heart Disease, How Coronary Artery Disease is Diagnosed, Heart Procedures, What Heart Medications Do, Risk Factors & Modifications, Living an Active Life, Nutrition, Emotions & Heart Disease, Stress Management & Relaxation and Sleep Disorders & Heart Disease Education/Goals Cardiac Rehabilitation Goals Personal Goals: Initial Assessment: Improve management of stress and emotions, Improve energy level, Participate in home exercise program, Improve muscle strength and endurance, Improve diet and eating habits (eat healthier) and Control risk factors (learn risk factor modification) Scale for measuring improvement of personal goals Diagnosis & Disease Process Outcomes/Goals: Pt IDs own risk factors & lifestyle modifications by Session 10, Verbalizes symptoms of angina & response by session 3. and Pt independently manages Plan/Interventions: Assist Pt to ID & engage in lifestyle modification to reduce CVD risk, Instruct on individual risk factors, Review symptoms of angina & emergency actions and Review secondary diagnosis & identify educational needs. 30 day Reassessments:: Not Met 30 day Reassessments:: Not Met 30 day Reassessments:: Not Met 30 day Reassessments:: Not Met Final Reassessments:: Not Met Safety Referral to Physical Therapy: No Referral to [facility] Case Management: No Fall Risk Assessed:: Yes Assistive Devices:: None Exercise - Initial Assessment Visit Date of Eval: 10/27/22 (initial eval) Mets: Pre-: >3 METS for 30 minutes by discharge, >5 METS for 30 minutes by discharge and >7 METS for 30 minutes by discharge Physician Prescribed Exercise Modalities: Treadmill, Rower, Airdyne, NuStep, SciFit and Lateral Magazine Frequency: 3x/week for 12 weeks [36 sessions] Intensity: 60-80% of age predicted maximum heart rate reserve Duration: 30 - 45 minutes Current METSs:: 3 Target Heart Rate:: 82-102 Resting Blood Pressure: 100/58 EKG Type: NSR Outcomes & Goals Goals:: Verbalizes understanding of THR, RPE & goal METS by session 6, Documents in home exercise log/reports 30 min aerobic 5 day/wk by DC and Demonstrates accurate pulse taking by DC Intervention & Plan Exercise Program Goals: Instruct on personal THR & RPE, Instruct on MET level & personal MET goal, Show patient to take own pulse /validate performance until accurate and Instruct on home exercise Physical Activity Home Exercise Physical Activity - Home Exercise: Safe Exercise, Warm-up, Self-monitoring, Cool-Down, Home Exercise > 30 min Daily and Sitting Time <3 hours/daily Outcomes & Goals Outcomes/Goals: Demonstrates correct Warm-up/exercise Cool-Down (S3) if = 2.5 METs, Verbalizes symptoms of exercise intolerance by Session 3 (S3) and Demonstrate safe equipment use (S3) & follows exercise prescrition (6) Intervention & Plan Plan/Intervention: Instruct warm-up & cool-down if exercising at > 2 METs, Instruct on symptoms of exercise intolerance & actions to take, Instruct & monitor on saf and Assess intial functional capacity & safety risk Nutrition - Initial Assessment Program Goals Nutrition Program Goals Patient has diagnosis of Hyperlipidemia (ICD E78)?: Yes Visit Date of Eval: 10/27/22 (INITIAL EVAL) Cholesterol/Lipids (Other Core Measures) Determine presence & major risk factors that modify LDL goal: Hypertension or hypertensive medication, Low HDL cholesterol <40 mg/dL*, Family history of premature CHD in Male < 55 years: female <65 yearsFa and Age men > 45 years; women >/= 55 years Outcomes/Goals: Pt IDs own risk factors & lifestyle modifications by Session 10, Verbalizes symptoms of angina & response by session 3. and Pt independently manages Intervention/Plan: Advocate for lipid panel cholesterol medication if applicable, Instruct on personal lipid levels & lipid goals/NCEP guidelines and Instruct on cholesterol Referral to dietitian:: Yes (MEDICAL NUTRITION THERAPY) Diabetes (Other Core Measures) Diabetes Type: Not Applicable Weight Mgt (Other Care) Height: 5 ft 7 in Weight:: 167 lb BMI: 26.2 Diagnosis Overweight/Obesity BMI> 30% ICD-10 E66: No Diagnosis High BMI/Morbid Obesity BMI> 35% ICD-10 Z68: No Outcomes/Goals: Pt sets, maintains & shows weight loss goal & trend during rehab Intervention/Plan: Instruct on ideal BMI & set weight loss goal w/patient, Assist pt to ID & incorporate diet changes for weight loss by S9, Refer to Structured Weight Loss program as appropriate and Encourage goal of using 250- 300dcal per session for weight loss Healthy Eating Habits Will attend diet classes:: Yes Outcomes/Goals:: Consume diet rich in vegs,fruits,whole grain/high fiber,fish,lean meat, Limit sat/trans fats,cholesterol & added salts & sugars and Other additional outcome/goals: Intervention/Plan:: Assess current eating habits and Other Additional plan/interventions Education Gave educational materials for:: Signs & symptoms of hypoglycemia, Signs & symptoms of hyperglycemia, Relate diabetes to coronary artery disease and Healthy eating Core - Initial Assessment Visit Date of Eval: 10/27/22 (initial eval) Medication Compliance Preventative Medication(s):: Aspirin, ROBB inhibitor, Statin/lipid and Beta carlos H/O mental health issues: depression, anxiety, or addiction?: No Doesn?t believe in the benefits of treatment?: No Believes medications are unnecessary or harmful?: No Has a concern about medication side effects?: No Expresses concern over the cost of medications?: No Outcomes/Goals: Verbalizes medications,desired effect & common side effects @ DC, Pt self-reports following medication regimen, Keeps card in wallet w/medications listed by DC and Other additional outcome/goals: Interventions/plans: Instruct on medication effects & side effects, Review medication list w/patient every two weeks, Instruct importance of taking meds as ordered & assist problem solving and Other additional Tobacco Use Tobacco Use: Non-smoker Hypertension Hypertension Diagnosis:: Hypertension ICD-10 I10 Resting Blood Pressure:: 100/58 [place] [employer] Hypertension Guidelines Outcomes/Goals: Able to verbalize/achieve optimal blood pressure <130/80, Incorporates diet changes & exercise for blood pressure control by DC and Other additional outcomes/goals Interventions/plan: Instruct on optimal blood pressure, hypertension & medications, Instruct on effects of sodium, alcohol, stress, exercise &hypertension and Other additional plan/interventions Tobacco Cessation Referral Smoking Cessation Referral:: No Individual Education/Counseling:: No Education Schedule Given:: Yes Psychosocial - Initial Assess VIsit Date of Eval: 10/27/22 (initial eval) History of previous Mental disease:: No Target Goals Target Goals Psychosocial Test Tool Used:: [employer] QOL Cardiac and PHQ-9 Questionnaire phq-9 Severity Referral to Behavioral Health PS - Interventions: No: Referral to Behavioral Health if PHQ-9 score >9:, No: Referral to [facility], No: Referral to Physician if PHQ-9 if score is 5-9: and No: Attend Stress Management Classes Outcomes/Goals: See list Psychosocial Outcomes/Goals:: ID's personal stressors & 2 strategies to manage stress by discharge and Other Additional outcome/goals: Intervention/Plan: See List Interventions/Plan:: Assess stressors,coping strategies & signs of derpression on admission, Instruct/assist pt to develop coping & personal stress Mgt strategies, Refer to Behavioral Health if appropriate, Refer to Physician if appropriate, Instruct patient to recognize signs & symptoms of depression, Instruct patient to recog and Other additional plan/intervention Patient Health Questionnaire PHQ-9 Screening Initial Assessment: 1. Little interest or pleasure in doing things: Several days 2. Feeling down, depressed, or hopeless: Not at all 3. Trouble falling or staying asleep, or sleeping too much: Several days 4. Feeling tired or having little energy: More than half the days 5. Poor appetite or overeating: Nearly every day 6. Feeling bad about yourself -- or that you are a failure or have let yourself or your family down: Not at all 7. Trouble concentrating on things, such as reading the newspaper or watching television: Not at all 8. Moving or speaking so slowly that other people could have noticed. Or the opposite - being so fidgety or restless that you have been moving around a lot more than usual: Not at all 9. Thoughts that you would be better off , or of hurting yourself in some way: Not at all How difficult have these problems made it for you to do your work, take care of things at home, or get along with other people?: Somewhat difficult Total Score: 7 FELA-Q SV Test Statements CAD is a disease of the arteries in the heart: False Examples of risk factors for heart disease: True Angina is chest pain or discomfort: True The benefits of resistance training include: True Eating more meat and dairy products: False Anti-platelet medications such as aspirin are important: True The only effective way to manage stress: False An exercise warm-up slowly increases heart rate: True Prepared, processed foods usually have high sodium: True Depression is common after a heart attack: True The statin medications lower cholesterol: True To control blood pressure, lower the amount of sodium: True If someone gets chest discomfort during walking: False Transfats are partially hydrogenated vegetable oils: I Don't Know Sleep apnea that is not treated increases the risk: True To control cholesterol, one should become a vegetarian: I Don't Know Someone knows if he/she is exercising at the right level: True Diabetes cannot be prevented with exercise & health eating: False Stress is a large risk for heart attack: True A diet that can help lower blood pressure is rich in: True Total Score Total Correct Responses: 17 Self-Efficacy 6-Item Scale Initial Assessment: We would like to know how confident you are in doing certain activities. Please select your confidence level for: Fatigue Select Number: 5 Physical Discomfort or Pain Select Number: 5 Emotional Distress Select Number: 6 Other Symptoms or Health Problems Select Number: 6 Different Tasks and Activities Select Number: 7 Medication Select Number: 8 Total Score:: 6 Nutrition Survey Nutrition Survey Instructions Scoring Instructions Nutrition Survey Initial: Have you lost >10 lbs over the past 2 months without trying?: No Are you following a special diet at home for diabetes, low fat, or low salt?: Yes Are you interested in meeting with a dietitian for help understanding your diet?: Yes Do you eat less than 3 meals a day?: No Do you eat fatty meats (lopez, sausage, ribs, etc), fried foods, desserts, large amounts of salad dressings, margarine, butter, or cheese most days?: No Do you have food allergies? [Enter types in comment field]: No Do you eat in restaurants more than 3 times a week?: No Do you season food with salt, seasoning salt, or garlic salt?: No Do you used canned, boxed, frozen meals, or soups, seasoning packets?: No Total Score:: 2 Exercise - Final/Discharge Physician Prescribed Exercise Modalities: Treadmill, Rower, Airdyne, NuStep, SciFit and Lateral Magazine Frequency: 3x/week for 12 weeks [36 sessions] Intensity: 60-80% of age predicted maximum heart rate reserve Current METSs:: 3 Target Heart Rate:: 82-102 Nutrition - 30-Day Assessment Weight Mgt (Other Care) Height: 5 ft 7 in Weight:: 167 lb BMI: 26.2 Nutrition - 60-Day Assessment Weight Mgt (Other Care) Height: 5 ft 7 in Weight:: 167 lb BMI: 26.2 Core - Final Assessment Hypertension Resting Blood Pressure:: 100/58 [place] [employer] Hypertension Guidelines Core - 60-Day Assessment Hypertension Resting Blood Pressure:: 100/58 [place] [employer] Hypertension Guidelines Psychosocial - 30-Day Assess Target Goals Target Goals Referral to Behavioral Health PS - Interventions: No: Referral to Behavioral Health if PHQ-9 score >9:, No: Referral to [facility], No: Referral to Physician if PHQ-9 if score is 5-9: and No: Attend Stress Management Classes Psychosocial - 60-Day Assess Target Goals Target Goals Referral to Behavioral Health PS - Interventions: No: Referral to Behavioral Health if PHQ-9 score >9:, No: Referral to [facility], No: Referral to Physician if PHQ-9 if score is 5-9: and No: Attend Stress Management Classes Psychosocial - 90-Day Assess Target Goals Target Goals Referral to Behavioral Health PS - Interventions: No: Referral to Behavioral Health if PHQ-9 score >9:, No: Referral to [facility], No: Referral to Physician if PHQ-9 if score is 5-9: and No: Attend Stress Management Classes Psychosocial - Final Assessmen Target Goals Target Goals Referral to Behavioral Health PS - Interventions: No: Referral to Behavioral Health if PHQ-9 score >9:, No: Referral to [facility], No: Referral to Physician if PHQ-9 if score is 5-9: and No: Attend Stress Management Classes Nutrition - 90-Day Assessment Weight Mgt (Other Care) Height: 5 ft 7 in Weight:: 167 lb BMI: 26.2 Nutrition - Final Assessment Program Goals Patient has diagnosis of Hyperlipidemia (ICD E78)?: Yes Weight Mgt (Other Care) Height: 5 ft 7 in Weight:: 167 lb BMI: 26.2
[2022-10-27 14:18] VITALS: BP 100/58; BMI 26.2
[2022-10-27 14:20] VITALS: BMI 26.2
== END | disposition home or self-care (01) ==
LOC: CR 12:57
PROVIDERS: PCP Internal Medicine; Referring Provider Internal Medicine Cardiovascular Disease; Visit Provider Internal Medicine Cardiovascular Disease
DX: I25.10 Atherosclerotic heart disease of native coronary artery without angina pectoris (principal); E78.2 Mixed hyperlipidemia

== ENCOUNTER 2022-11-10 11:15 | Outpatient (RCR) | payer MEDICARE, SELFPAY ==
[2022-10-27 14:18] VITALS: BMI 26.2
== END 2022-11-11 23:59 ==
LOC: CR 11:15
PROVIDERS: PCP Internal Medicine; Referring Provider Internal Medicine Cardiovascular Disease; Visit Provider Internal Medicine Cardiovascular Disease
DX: Z95.5 Presence of coronary angioplasty implant and graft (principal)
CPT/HCPCS: 93798

== ENCOUNTER 2022-12-06 08:07 | Emergency (ER) | payer MEDICARE, SELFPAY ==
[2022-11-26 07:20] VITALS: BMI 25.2
[2022-12-06 08:08] VITALS: BP 129/70; PULSE 62; RESP 14; TEMP 36.4; O2SAT 100; BMI 24.7
--- NOTE | 2022-12-06 08:31 | CT_ITS ---
STUDY: CTA CHEST, ABDOMEN T PELVIS WITHOUT CONTRAST REASON FOR EXAM: Male, 87 years old. Back and abdominal pain r/o dissection RADIATION DOSAGE (If Supplied By Facility): CTDIvol = ( 11.70 ) mGy, DLP = ( 827.78 ) mGycm TECHNIQUE: Transaxial imaging was performed without the administration of intravenous contrast material. Individualized dose optimization techniques were used for this CT. COMPARISON: No relevant priors. FINDINGS: CHEST Small benign-appearing bilateral axillary lymph nodes. Faintly calcified 2.5 mm nodule in the posterior-lateral aspect of the left lower lobe suggestive of a small calcified granuloma. There is a 3.8 mm noncalcified nodule in the peripheral lateral aspect of the right middle lobe as seen on axial image #78. Minimal scarring at the lung bases. There is no demonstrated pleural abnormality. There are calcifications of the coronary arteries. Normal mediastinum. Normal hilar regions. Normal unenhanced pulmonary arteries. Normal aorta arch and descending thoracic aorta. There are multi-level degenerative changes of the thoracic spine. ABDOMEN Normal liver. Tiny gallstones are seen in the gallbladder lumen. Normal spleen. Normal pancreas. Normal bilateral adrenal glands. Normal right kidney. There is a 3 cm x 2.3 cm cyst in the upper anterior aspect of the left kidney. 1.9 cm cyst in the lower lateral pole of the left kidney. Normal visualized stomach. Normal small intestine. There are multiple colonic diverticula consistent with diverticulosis. The appendix is visualized and appears normal. There is scattered atherosclerotic calcification of the abdominal aorta, without a demonstrated aneurysm. Normal inferior vena cava. Normal retroperitoneum. There is a small umbilical hernia containing fat. There are degenerative changes of the visualized lumbar spine. Degenerative changes of the sacroiliac joints slightly more prominent on the right side. 4.1 mm sclerotic focus in the posterior right iliac wing. This may represent a bone island. PELVIS The urinary bladder is only partially filled. Mild urinary bladder wall thickening. The prostate is enlarged. The measures 4.5 cm by 4.2 cm. This causes indentation at the bladder base. Normal visualized small intestine. There are scattered colonic diverticula of the sigmoid colon consistent with chronic diverticulosis. There is no pelvic fluid. There is no pelvic lymphadenopathy or mass lesion. Normal visualized pelvic arteries. CT/CTA Chst, Abd, Pel W and/or WO IMPRESSION: No evidence of aortic dissection. 3.8 mm noncalcified nodule in the peripheral aspect of the right lobe. A 12 month follow-up examination is recommended. Tiny gallstones. Left renal cysts. Prostatic enlargement. Electronically Signed: Dwayne Oliveira MD at 10:00 EDT ,
--- NOTE | 2022-12-06 08:32 | ED.VIS.CHEST ---
HPI History of Present Illness Chief Complaint: Chest Pain Narrative Narrative: 87-year-old male past medical history of coronary artery disease with 3 stents, hyperlipidemia, hypertension, presents with chest pain and back pain, even between his shoulder blades and in his low back that he has had for days to weeks. He took Tylenol with mild relief of his symptoms. The pain has become somewhat constant. He denies any vomiting but may have felt slightly nauseated. No diaphoresis or shortness of breath. He denies any exacerbating or alleviating factors truly except for the fact when his was putting lotion on his spine, that that did hurt him. [facility] Medical History Bruit of left carotid artery Dyspnea on exertion Essential hypertension GERD (gastroesophageal reflux disease) Mixed hyperlipidemia Nonrheumatic aortic (valve) stenosis MARISOL (obstructive sleep apnea) Home Medications acetaminophen 500 mg tablet 500 - 1,000 mg PO Q6H PRN PRN Pain 08/18/18 [History Last Taken Unknown] amlodipine 2.5 mg tablet 2.5 mg PO DAILY 08/18/18 [History Last Taken 09/13/22] finasteride 5 mg tablet 5 mg PO DAILY 08/18/18 [History Last Taken Unknown] fluticasone propionate 50 mcg/actuation nasal spray,suspension 1 spray BID PRN ALLERGY SX 08/18/18 [History Last Taken Unknown] tintimyj-out-cppxf acid 0.4 mg-lycopene 300 mcg-lutein 250 mcg tablet (Centrum Silver) 1 ea PO DAILY 08/18/18 [History Last Taken Unknown] vit C 250 mg-vit E 90 mg-zinc 40 mg-copper 1 gp-skzwqc-tzyofc capsule (PreserVision AREDS-2) 1 ea PO BID 08/18/18 [History Last Taken Unknown] omeprazole 20 mg capsule,delayed release 20 mg PO DAILY 09/08/22 [History Last Taken Unknown] ticagrelor 90 mg tablet 90 mg PO BID #60 tabs 09/13/22 [Rx Last Taken Unknown] aspirin 81 mg tablet,delayed release (Adult Low Dose Aspirin) 81 mg PO DAILY 10/22/22 [History Last Taken Unknown] metoprolol tartrate 25 mg tablet 25 mg PO DAILY 10/22/22 [History Last Taken Unknown] atorvastatin 40 mg tablet 80 mg PO .COMPLEX 11/11/22 [History Last Taken Unknown] Allergy/AdvReac Type Severity Reaction Status Date / Time meloxicam [From [facility]] Allergy Unknown Verified 12/06/22 08:10 Sulfa (Sulfonamide Allergy Unknown Verified 12/06/22 08:10 Antibiotics) gabapentin AdvReac Unknown Shortness Verified 12/06/22 08:10 of breath Family History Father Myocardial infarction, Onset Age: 60 Brother Heart disease Sister Heart disease Surgical History History of appendectomy History of prostate biopsy Hx of heart artery stent Social History Smoking Status: Never smoker alcohol intake: never ROS ROS ED ROS Narrative Constitutional: No fever, no chills. HEENT: No sore throat. No neck pain. No loss of vision. No rhinorrhea. Cardiovascular: Positive chest pain. No palpitations. No pedal edema. Respiratory: No cough, no shortness of breath. Abdominal: No abdominal pain. No nausea. No vomiting. Genitourinary: No dysuria. No hematuria. Musculoskeletal: No myalgias. No arthralgias. Positive back pain, between shoulder blades, and including low back. Neurologic: No headaches. No dizziness. No lightheadedness. Skin: No rash. No change in color. Psychiatric: No depression. No anxiety. EXAM Physical Exam Narrative Exam Narrative: Afebrile. Vital signs noted. HEENT: Normocephalic. Atraumatic. PERRL, EOMI. Neck soft and supple. No point tenderness or step off. Cardiovascular: Regular rate and rhythm. No murmurs, rubs, or gallops appreciated. Respiratory: No tachypnea. Lungs clear to auscultation bilaterally. Gastrointestinal: Abdomen soft, nontender, with normoactive bowel sounds. No rebound or guarding. Neurological: Awake. Alert. Nonfocal, nonlateralizing. Skin: No rash. Normal color. No pallor. Musculoskeletal: No pedal edema. Full range of motion extremities. Const Vital Signs: 12/06/22 08:08 12/06/22 08:42 12/06/22 08:42 Temperature 97.6 F L Temperature Source Temporal Pulse Rate 62 Respiratory Rate 14 Respiratory Pattern Normal Blood Pressure 129/70 H Blood Pressure Mean 89 Pulse Ox 100 Oxygen Delivery Method Room Air Room Air MDM MDM MDM Narrative Medical decision making narrative: In the differential diagnosis is musculoskeletal arthritic pain of the spine given his age of 87, however, there is also concern for aortic dissection given the pain between his shoulder blades and his history of hypertension and coronary artery disease. EKG was obtained and interpreted by myself independently as sinus bradycardia at 48 bpm without ectopy or acute ST changes. I do feel that serial troponin should be obtained along with basic laboratory work. For imaging, CTA will be obtained to look at the aorta, so CTA of the chest, abdomen, and pelvis will be obtained to help rule out dissection. I reviewed his laboratory work and he has slightly elevated white count of 12.1 which I think is nonspecific, hemoglobin normal at 13.1, hematocrit normal at 41.4, platelet count normal at 269. BMP is grossly unremarkable with a normal sodium of 139 and potassium normal at 4.2, glucose is slightly elevated at 162 with a normal anion gap of 5. Initial high-sensitivity troponin is 13 with repeat also 13 for a delta of 0. Of most importance is a CTA of the chest, abdomen, and pelvis which is negative for dissection. There is evidence of a pulmonary nodule in the peripheral aspect of the right lobe which will require 12-month follow-up. At this point in time, I offered him something stronger for analgesia such as tramadol, but he states he prefers Tylenol. I do not feel he requires observation at this time. I feel he can be discharged safely home with follow-up. Return instructions to the emergency department were reviewed. Disposition is discharged home in stable condition. History & Record Review Discussion w/independent historian: Patient and Family Additional record(s) reviewed:: Prior ED visit and Prior labs Lab Data Attestation: I reviewed the patient's lab results. Labs: Laboratory Results - last 24 hr 12/06/22 12/06/22 08:31 10:46 WBC 12.1 H RBC 4.28 L Hgb 13.1 Hct 41.4 MCV 96.7 H MCH 30.6 MCHC 31.6 L RDW Std Deviation 50.6 H RDW Coeff of Kristan 14.2 Plt Count 269 MPV 10.3 Immature Gran % (Auto) 0.800 Neut % (Auto) 79.0 H Lymph % (Auto) 9.0 L Haines % (Auto) 9.5 Eos % (Auto) 1.1 Baso % (Auto) 0.6 Absolute Neuts (auto) 9.6 H Absolute Lymphs (auto) 1.09 Nucleated RBC % 0 Sodium 139 Potassium 4.2 Chloride 107 Carbon Dioxide 27.0 Anion Gap 5 BUN 17 Creatinine 0.99 Estim Creat Clear Calc 51.00 Est GFR (MDRD) Af Amer 93 Est GFR (MDRD) Non-Af 76 BUN/Creatinine Ratio 17.2 Glucose 162 H Calcium 9.3 Troponin I High Sens 13 13 Radiography Diagnostic Testing: Clinical Impression(s) from Imaging Studies Chest/Abdomen/Pelvis CTA 12/06/22 08:31 IMPRESSION: No evidence of aortic dissection. 3.8 mm noncalcified nodule in the peripheral aspect of the right lobe. A 12 month follow-up examination is recommended. Tiny gallstones. Left renal cysts. Prostatic enlargement. Electronically Signed: Dwayne Oliveira MD at 10:00 EDT , Discharge Plan Triage Chief Complaint: Chest Pain ED Provider: Hernán Spence Dx/Rx/DC Orders Clinical Impression: Chest pain, CAD (coronary artery disease), Back pain Instructions: ED Back Pain (Acute or Chronic), ED Chest Pain, Uncertain Cause Prescriptions: No Action omeprazole 20 mg capsule,delayed release(DR/EC) 20 mg PO DAILY aspirin [Adult Low Dose Aspirin] 81 mg tablet,delayed release (DR/EC) 81 mg PO DAILY metoprolol tartrate 25 mg tablet 25 mg PO DAILY amlodipine 2.5 MG tablet 2.5 mg PO DAILY acetaminophen 500 MG tablet 500 - 1,000 mg PO Q6H PRN PRN (Reason: Pain) fluticasone propionate 1 SPRAY spray,suspension 1 spray NASAL BID PRN (Reason: ALLERGY SX) finasteride 5 MG tablet 5 mg PO DAILY Centrum Silver 1 EACH tablet 1 ea PO DAILY PreserVision AREDS-2 1 EACH capsule 1 ea PO BID ticagrelor 90 mg tablet 90 mg PO BID Qty: 60 1RF atorvastatin 40 mg tablet 80 mg PO .COMPLEX Rx Instructions: 80 mg orally take 1/2 tablet daily once a day.; Primary Care Provider: Mariano Ocampo Referrals: Mariano Ocampo MD [Primary Care Provider] - As soon as possible Disposition Disposition: Home, Self Care
[2022-12-06 08:45] LABS: Absolute Lymphocyte Count 1.09 X10^3/uL (0.83-4.51); Absolute Neutrophil Count 9.6 X10^3/uL (2.0-7.7); Basophil# 0.07 X10^3/uL; Basophil% 0.6 % (0-1); Eosinophil# 0.13 X10^3/uL; Eosinophils% 1.1 % (0-5); Hematocrit 41.4 % (40-54); Hemoglobin 13.1 g/dL (13.0-16.5); Lymphocyte # 1.09 X10^3/ul (0.83-4.51); Mean Corp Hgb Conc 31.6 g/dL (32-36); Mean Corpuscular Hgb 30.6 pg (27.0-32.0); Mean Corpuscular Volume 96.7 fL (80-94); Mean Platelet Vol. 10.3 fl (6.2-12.0); Monocyte# 1.15 X10^3/uL; Monocyte% 9.5 % (0-10); NRBC Flagged by Analyzer 0 % (0-5); Neutrophil # 9.57 X10^3/uL (2.7-7.7); Platelet Count 269 K/mm3 (150-450); RBC Distribution Width CV 14.2 % (11.6-14.6); RBC Distribution Width SD 50.6 fl (35.1-43.9); Red Blood Count 4.28 M/mm3 (4.6-6.2); White Blood Count 12.1 K/mm3 (4.4-11.0)
[2022-12-06] MEDS: 0.9% Normal Saline (1000mL) 1,000 ML 1000 ML IV (08:49)
[2022-12-06] MEDS: Aspirin 81 MG TAB.CHEW 324 MG PO (08:50)
[2022-12-06 09:01] LABS: Anion Gap 5 (5-15); BUN 17 mg/dL (7-18); BUN/Creat Ratio 17.2 RATIO (10-20); Calcium,Total 9.3 mg/dL (8.5-10.1); Chloride 107 mmol/L (98-107); Creatinine, Serum 0.99 mg/dL (0.70-1.30); EST Glomerular Filtration Rate 76 mL/min (>60); Est Glom Filt Rate - Afr Amer 93 mL/min (>60); Glucose 162 mg/dL (74-106); Potassium 4.2 mmol/L (3.5-5.1); Sodium Level 139 mmol/L (136-145); Troponin-I HS (w/2H Reflex) 13 pg/mL (3.0-78.0)
[2022-12-06 10:40] LABS: Reflex Troponin-HS? (from REC) Y
[2022-12-06 11:07] VITALS: BP 172/72; PULSE 55; RESP 18; O2SAT 96
[2022-12-06 11:20] LABS: Troponin-I HS 13 pg/mL (3.0-78.0)
[2022-12-06 12:05] VITALS: BP 109/65; PULSE 55; RESP 14; O2SAT 99
== END 2022-12-06 12:06 | disposition home or self-care (01) ==
PROVIDERS: Emergency Provider Emergency Medicine; PCP Internal Medicine; Visit Provider Emergency Medicine
DX: R07.9 Chest pain, unspecified (principal); M54.9 Dorsalgia, unspecified; I10 Essential (primary) hypertension; E78.2 Mixed hyperlipidemia; I25.10 Atherosclerotic heart disease of native coronary artery without angina pectoris; K21.9 Gastro-esophageal reflux disease without esophagitis; Z79.899 Other long term (current) drug therapy; Z79.82 Long term (current) use of aspirin; Z90.49 Acquired absence of other specified parts of digestive tract; Z95.5 Presence of coronary angioplasty implant and graft
CPT/HCPCS: 71275; 74174; 80048; 84484; 85025; 93005; 96360; 99284; Q9967; A4216

== ENCOUNTER → 2022-12-09 | Outpatient (CLI) | payer MEDICARE, SELFPAY ==
[2022-11-26 07:20] VITALS: BMI 25.2
[2022-12-09 12:16] LABS: Erythrocyte Sedimentation Rate 27 mm/hr (0-20)
== END | disposition home or self-care (01) ==
LOC: LABSPEC 12:04
PROVIDERS: PCP Internal Medicine; Referring Provider Internal Medicine; Visit Provider Internal Medicine
DX: M54.2 Cervicalgia (principal)
CPT/HCPCS: 85652; 86140

== ENCOUNTER 2022-12-10 11:15 | Outpatient (RCR) | payer MEDICARE, SELFPAY ==
[2022-10-27 14:18] VITALS: BMI 26.2
--- NOTE | 2022-11-26 07:10 | PCM.CR.ITP ---
Exercise - Initial Assessment Visit Session #:: 10 Nutrition - Initial Assessment Weight Mgt (Other Care) Height: 5 ft 7 in Weight:: 161 lb BMI: 25.2 Psychosocial - Initial Assess Target Goals Target Goals Patient Health Questionnaire PHQ-9 Screening 30-Day Re-eval Assessment: 1. Little interest or pleasure in doing things: Several days 2. Feeling down, depressed, or hopeless: Not at all 3. Trouble falling or staying asleep, or sleeping too much: Several days 4. Feeling tired or having little energy: More than half the days 5. Poor appetite or overeating: Nearly every day 6. Feeling bad about yourself -- or that you are a failure or have let yourself or your family down: Not at all 7. Trouble concentrating on things, such as reading the newspaper or watching television: Not at all 8. Moving or speaking so slowly that other people could have noticed. Or the opposite - being so fidgety or restless that you have been moving around a lot more than usual: Not at all 9. Thoughts that you would be better off , or of hurting yourself in some way: Not at all How difficult have these problems made it for you to do your work, take care of things at home, or get along with other people?: Somewhat difficult Total Score: 7 Self-Efficacy 6-Item Scale 30-Day Re-eval Assessment: We would like to know how confident you are in doing certain activities. Please select your confidence level for: Fatigue Select Number: 5 Physical Discomfort or Pain Select Number: 5 Emotional Distress Select Number: 6 Other Symptoms or Health Problems Select Number: 6 Different Tasks and Activities Select Number: 7 Medication Select Number: 8 Total Score:: 6 Nutrition Survey Nutrition Survey Instructions Scoring Instructions Exercise - 30-day Assessment Visit Date of Eval: 11/26/22 Session #:: 10 Physician Prescribed Exercise Modalities: Treadmill and NuStep Frequency: 3x/week for 12 weeks [36 sessions] Intensity: 60-80% of age predicted maximum heart rate reserve Duration: 30 - 45 minutes Current METSs:: 3.5 Target Heart Rate:: 82-102 Current RPE:: 9-10.5 Maximum Excercise HR:: 92 Resting Blood Pressure: 100/50 Maximum Exercise Blood Pressure: 130/50 EKG Type: SB/junctional to NSR w/1st degree AVB. rare sinus arrhythmia/junctional. ra Outcomes & Goals Goals:: Verbalizes understanding of THR, RPE & goal METS by session 6, Documents in home exercise log/reports 30 min aerobic 5 day/wk by DC, Demonstrates accurate pulse taking by DC and Other additional outcome/goals: see below Intervention & Plan Exercise Program Goals: Instruct on personal THR & RPE, Instruct on MET level & personal MET goal, Show patient to take own pulse /validate performance until accurate, Instruct on home exercise and Other additional plan/int 30-day Reassessments 30 day Reassessments:: Progressing Reassessment Notes & Comments:: RPE explained Physical Activity Home Exercise Physical Activity - Home Exercise: Safe Exercise, Warm-up, Self-monitoring, Cool-Down, Home Exercise > 30 min Daily and Sitting Time <3 hours/daily Outcomes & Goals Outcomes/Goals: Demonstrates correct Warm-up/exercise Cool-Down (S3) if = 2.5 METs, Verbalizes symptoms of exercise intolerance by Session 3 (S3), Demonstrate safe equipment use (S3) & follows exercise prescrition (6) and Other: See below Intervention & Plan Plan/Intervention: Instruct warm-up & cool-down if exercising at > 2 METs, Instruct on symptoms of exercise intolerance & actions to take, Instruct & monitor on saf, Assess intial functional capacity & safety risk and Other See below 30-day Reassessments 30 day Reassessments:: Progressing Reassessment Notes & Comments:: cool down encouraged Nutrition - 30-Day Assessment Program Goals Nutrition Program Goals Patient has diagnosis of Hyperlipidemia (ICD E78)?: Yes Visit Date of Eval: 11/26/22 Session #:: 10 Cholesterol/Lipids (Other Core Measures) Determine presence & major risk factors that modify LDL goal: Hypertension or hypertensive medication, Low HDL cholesterol <40 mg/dL*, Family history of premature CHD in Male < 55 years: female <65 yearsFa and Age men > 45 years; women >/= 55 years Outcomes/Goals: Pt IDs own risk factors & lifestyle modifications by Session 10, Verbalizes symptoms of angina & response by session 3., Pt independently manages and Other Additional Outcomes/Goals: Intervention/Plan: Advocate for lipid panel cholesterol medication if applicable, Instruct on personal lipid levels & lipid goals/NCEP guidelines, Instruct on cholesterol and Other additional plan/int 30-day Reassessments:: Progressing Reassessment Notes & Comments:: pt attending nutrition class Diabetes (Other Core Measures) Diabetes Type: Not Applicable Weight Mgt (Other Care) Height: 5 ft 7 in Weight:: 161 lb BMI: 25.2 Diagnosis Overweight/Obesity BMI> 30% ICD-10 E66: No Diagnosis High BMI/Morbid Obesity BMI> 35% ICD-10 Z68: No Healthy Eating Habits Will attend diet classes:: Yes Outcomes/Goals:: Consume diet rich in vegs,fruits,whole grain/high fiber,fish,lean meat, Limit sat/trans fats,cholesterol & added salts & sugars and Other additional outcome/goals: Intervention/Plan:: Assess current eating habits and Other Additional plan/interventions 30-day Reassessments:: Progressing Reassessment Notes & Comments:: pt attending nutrition class Education Gave educational materials for:: Signs & symptoms of hypoglycemia, Signs & symptoms of hyperglycemia, Relate diabetes to coronary artery disease and Healthy eating Nutrition - 60-Day Assessment Weight Mgt (Other Care) Height: 5 ft 7 in Weight:: 161 lb BMI: 25.2 Core - 30-Day Assessment Visit Date of Eval: 11/26/22 Session #:: 10 Medication Compliance Preventative Medication(s):: Aspirin, ROBB inhibitor, Statin/lipid and Beta carlos H/O mental health issues: depression, anxiety, or addiction?: No Doesn?t believe in the benefits of treatment?: No Believes medications are unnecessary or harmful?: No Has a concern about medication side effects?: No Expresses concern over the cost of medications?: No Outcomes/Goals: Verbalizes medications,desired effect & common side effects @ DC, Pt self-reports following medication regimen, Keeps card in wallet w/medications listed by DC and Other additional outcome/goals: Interventions/plans: Instruct on medication effects & side effects, Review medication list w/patient every two weeks, Instruct importance of taking meds as ordered & assist problem solving and Other additional 30-day Reassessments:: Progressing Reassessment Notes & Comments:: encouraged to take meds Tobacco Use Tobacco Use: Non-smoker Hypertension Hypertension Diagnosis:: Hypertension ICD-10 I10 Resting Blood Pressure:: 100/50 [place] [employer] Hypertension Guidelines Peak Exercise Blood Pressure:: 130/50 Outcomes/Goals: Able to verbalize/achieve optimal blood pressure <130/80, Incorporates diet changes & exercise for blood pressure control by DC and Other additional outcomes/goals Interventions/plan: Instruct on optimal blood pressure, hypertension & medications, Instruct on effects of sodium, alcohol, stress, exercise &hypertension and Other additional plan/interventions 30 day Reassessments:: Met Tobacco Cessation Referral Smoking Cessation Referral:: No Individual Education/Counseling:: No Education Schedule Given:: Yes Psychosocial - 30-Day Assess VIsit Date of Eval: 11/26/22 Session #:: 10 History of previous Mental disease:: No Target Goals Target Goals Psychosocial Test Tool Used:: [employer] QOL Cardiac and PHQ-9 Questionnaire phq-9 Severity Outcomes/Goals: See list Psychosocial Outcomes/Goals:: ID's personal stressors & 2 strategies to manage stress by discharge and Other Additional outcome/goals: Intervention/Plan: See List Interventions/Plan:: Assess stressors,coping strategies & signs of derpression on admission, Instruct/assist pt to develop coping & personal stress Mgt strategies, Refer to Behavioral Health if appropriate, Refer to Physician if appropriate, Instruct patient to recognize signs & symptoms of depression, Instruct patient to recog and Other additional plan/intervention 30-day Reassessments: 30 day Reassessments:: Met Psychosocial - 60-Day Assess Target Goals Target Goals Outcomes/Goals: See list Psychosocial Outcomes/Goals:: ID's personal stressors & 2 strategies to manage stress by discharge and Other Additional outcome/goals: Psychosocial - 90-Day Assess Target Goals Target Goals Psychosocial - Final Assessmen Target Goals Target Goals Nutrition - 90-Day Assessment Weight Mgt (Other Care) Height: 5 ft 7 in Weight:: 161 lb BMI: 25.2 Nutrition - Final Assessment Weight Mgt (Other Care) Height: 5 ft 7 in Weight:: 161 lb BMI: 25.2
[2022-11-26 07:20] VITALS: BP 100/50; BMI 25.2
== END 2022-12-11 23:59 ==
LOC: CR 11:15
PROVIDERS: PCP Internal Medicine; Referring Provider Internal Medicine Cardiovascular Disease; Visit Provider Internal Medicine Cardiovascular Disease
DX: Z95.5 Presence of coronary angioplasty implant and graft (principal)
CPT/HCPCS: 93798

== ENCOUNTER 2023-01-03 15:10 | Emergency (ER) | payer MEDICARE, SELFPAY ==
[2022-12-27 07:04] VITALS: BMI 24.3
[2023-01-03 15:11] VITALS: BP 117/82; PULSE 72; RESP 16; TEMP 36.3; O2SAT 99; BMI 24.0
--- NOTE | 2023-01-03 17:39 | EDS_ITS ---
HPI <RALPH Bear - Last Filed: 01/03/23 19:05> History of Present Illness Chief Complaint: Nosebleed Narrative Narrative: Patient is an 87-year-old male with history of CAD, hypertension who takes Brilinta. Patient states over the last week he has noticed intermittent blood out of his nose. Patient states that it comes and goes. Usually last around anywhere from 20 minutes to 1 hour however it is more of an oozing and dripping out of his nose. He denies any blood clots to the back of his throat or out of his nose. He is concerned because he on Brilinta and is here for evaluation [facility] <RALPH Bear - Last Filed: 01/03/23 19:05> [facility] Medical History Bruit of left carotid artery Dyspnea on exertion Essential hypertension GERD (gastroesophageal reflux disease) Mixed hyperlipidemia Nonrheumatic aortic (valve) stenosis MARISOL (obstructive sleep apnea) Home Medications acetaminophen 500 mg tablet 500 - 1,000 mg PO Q6H PRN PRN Pain 08/18/18 [History Last Taken Unknown] amlodipine 2.5 mg tablet 2.5 mg PO DAILY 08/18/18 [History Last Taken 09/13/22] finasteride 5 mg tablet 5 mg PO DAILY 08/18/18 [History Last Taken Unknown] fluticasone propionate 50 mcg/actuation nasal spray,suspension 1 spray BID PRN ALLERGY SX 08/18/18 [History Last Taken Unknown] gldcwhwk-yas-ljyaz acid 0.4 mg-lycopene 300 mcg-lutein 250 mcg tablet (Centrum Silver) 1 ea PO DAILY 08/18/18 [History Last Taken Unknown] vit C 250 mg-vit E 90 mg-zinc 40 mg-copper 1 gu-bttfab-fwepmx capsule (PreserVision AREDS-2) 1 ea PO BID 08/18/18 [History Last Taken Unknown] omeprazole 20 mg capsule,delayed release 20 mg PO DAILY 09/08/22 [History Last Taken Unknown] ticagrelor 90 mg tablet 90 mg PO BID #60 tabs 09/13/22 [Rx Last Taken Unknown] aspirin 81 mg tablet,delayed release (Adult Low Dose Aspirin) 81 mg PO DAILY 10/22/22 [History Last Taken Unknown] metoprolol tartrate 25 mg tablet 25 mg PO DAILY 10/22/22 [History Last Taken Unknown] atorvastatin 40 mg tablet 80 mg PO .COMPLEX 11/11/22 [History Last Taken Unknown] prednisone 10 mg tablet 10 mg PO DIRECTED 12/22/22 [History Last Taken Unknown] Allergy/AdvReac Type Severity Reaction Status Date / Time meloxicam [From Mob] Allergy Unknown Verified 01/03/23 15:14 Sulfa (Sulfonamide Allergy Unknown Verified 01/03/23 15:14 Antibiotics) gabapentin AdvReac Unknown Shortness Verified 01/03/23 15:14 of breath Family History Father Myocardial infarction, Onset Age: 60 Brother Heart disease Sister Heart disease Surgical History History of appendectomy History of prostate biopsy Hx of heart artery stent Social History Smoking Status: Never smoker alcohol intake: never ROS <RALPH Bear - Last Filed: 01/03/23 19:05> ROS ED ROS Narrative Constitutional: Negative for fever, chills, weight loss, weakness Eyes: Negative for vision loss, vision change, double vision ENT: Negative for any sore throat, ear pain, congestion. Positive for bloody nose Cardiovascular: Negative for any chest pain, tightness, palpitations Respiratory: Negative for any cough, sputum production, hemoptysis, dyspnea, dyspnea on exertion, orthopnea Gastrointestinal: Negative for any abdominal pain, nausea, vomiting, diarrhea, constipation, blood in stool, blood in vomit : Negative for any urinary frequency, dysuria, retention, blood in urine Muscle skeletal: Negative for any muscle joint pain, stiffness, myalgias, arthralgias, neck pain, back pain Neurological: Negative for any headache, syncope, numbness or tingling, dizziness Skin: Negative for any rashes, lumps, itching, abrasions, lacerations Psychiatric: Negative for any depression, anxiety, stress, suicidal ideation, homicidal ideation Hematologic: Negative for any easy bruising, excessive bruising, easy bleeding Allergies: Negative for any eczema, hives, rash EXAM <RALPH Bear - Last Filed: 01/03/23 19:05> Physical Exam Narrative Exam Narrative: Vital signs reviewed. HEET: Head normocephalic atraumatic, TMs clear bilaterally. Posterior pharynx is clear, moist mucous membranes. Nares clear bilaterally. Patient does have some dried blood to the lateral aspect of the left nare. There is no bleeding at this time. There is no blood to the back of the throat. Patient is generally asymptomatic at this time. Neck: Supple with no lymphadenopathy or tenderness. No signs of meningismus, negative jolt sign. Cardiac: Regular rate and rhythm no murmurs gallops or rubs, equal peripheral pulses bilaterally. Respiratory: Lungs clear to auscultation bilaterally. No chest tenderness. Abdomen: Soft, nontender, nondistended. No abdominal bruit or pulsatile masses. No hepatosplenomegaly Extremities: No peripheral edema, no signs of gross trauma or deformity. Active full range of motion of all extremities. Neuro: Cranial nerves II through XII intact, no focal neurological deficits. Skin: Clean dry and intact with no rash, purpura, petechiae, vesicles or pustules. Backs/flank: No CVA tenderness, no midline spinal tenderness, no deformity. Psych: Normal mood and affect. No SI, HI or acute psychosis. Const Vital Signs: 01/03/23 15:11 Temperature 97.3 F L Temperature Source Temporal Pulse Rate 72 Respiratory Rate 16 Blood Pressure 117/82 H Blood Pressure Mean 93 Pulse Ox 99 Oxygen Delivery Method Room Air <Dr. Perry Ho MD - Last Filed: 01/03/23 18:26> Physical Exam Const Vital Signs: 01/03/23 15:11 Temperature 97.3 F L Temperature Source Temporal Pulse Rate 72 Respiratory Rate 16 Blood Pressure 117/82 H Blood Pressure Mean 93 Pulse Ox 99 Oxygen Delivery Method Room Air [facility] <RALPH Bear - Last Filed: 01/03/23 19:05> [facility] Treatment and Re-Evaluation :: Patient appears generally well, patient appears nontoxic, vital signs are stable. Presenting to the emergency department with complaints of nosebleeds that been on and off for 1 month. I spoke with the patient at length, this will be likely related to the recent change of seasons going from moist to dry out his fall. Patient on my examination was asymptomatic. Patient states that when it does bleed, it is not excessive. I did speak with the patient regarding nasal saline spray. Patient left before discharge instructions, patient also left before her ER attending could see the patient. We were able to reach the patient at home, the ER attending did speak with him. Patient has no bleeding at this time, he was given return precautions to return here. Patient stable Patient is hard of hearing, he misunderstood me, he was to wait to see the doctor. However the patient left. Patient was offered to come back to the emergency department for packing however he refused. He will come back and continues bleeding <Dr. Perry Ho MD - Last Filed: 01/03/23 18:26> [facility] MDM Narrative Medical decision making narrative: I have personally performed a face to face assessment of the patient and have reviewed the NIZTA Note. I performed a substantive portion of the visit including all aspects of the following. My odonnell findings include: History is [87-year-old male on blood thinner Brilinta with nosebleed. I went back to evaluate the patient to talking to our nurse practitioner and the patient thought he had been discharged which she had not. Currently is not available for my evaluation. We will try to contact him by phone to see if her return to get his nose packed..] Exam is [ ] Medical Decision Making [ ] Other additions or changes: [None] Discharge Plan Triage Chief Complaint: Nosebleed ED Midlevel Provider: Dwight Awad ED Provider: Perry Ho Dx/Rx/DC Orders Clinical Impression: Epistaxis Prescriptions: No Action omeprazole 20 mg capsule,delayed release(DR/EC) 20 mg PO DAILY aspirin [Adult Low Dose Aspirin] 81 mg tablet,delayed release (DR/EC) 81 mg PO DAILY metoprolol tartrate 25 mg tablet 25 mg PO DAILY prednisone 10 mg tablet 10 mg PO DIRECTED Rx Instructions: see taper instructions amlodipine 2.5 MG tablet 2.5 mg PO DAILY acetaminophen 500 MG tablet 500 - 1,000 mg PO Q6H PRN PRN (Reason: Pain) fluticasone propionate 1 SPRAY spray,suspension 1 spray NASAL BID PRN (Reason: ALLERGY SX) finasteride 5 MG tablet 5 mg PO DAILY Centrum Silver 1 EACH tablet 1 ea PO DAILY PreserVision AREDS-2 1 EACH capsule 1 ea PO BID ticagrelor 90 mg tablet 90 mg PO BID Qty: 60 1RF atorvastatin 40 mg tablet 80 mg PO .COMPLEX Rx Instructions: 80 mg orally take 1/2 tablet daily once a day.; Primary Care Provider: Mariano Ocampo Referrals: Mariano Ocampo MD [Primary Care Provider] - Disposition Disposition: Elopement Discharge Date/Time: 01/03/23 18:32
--- NOTE | 2023-01-03 18:30 | ED.RN ---
Patient not found in room by physician on two attempts. Patient told tech earlier he did not want to stay.
== END 2023-01-03 18:32 | disposition left against medical advice (07) ==
PROVIDERS: Emergency Provider Emergency Medicine; PCP Internal Medicine; Visit Provider Emergency Medicine
DX: R04.0 Epistaxis (principal); I25.10 Atherosclerotic heart disease of native coronary artery without angina pectoris; H91.90 Unspecified hearing loss, unspecified ear; E78.2 Mixed hyperlipidemia; I10 Essential (primary) hypertension; G47.33 Obstructive sleep apnea (adult) (pediatric); Z79.02 Long term (current) use of antithrombotics/antiplatelets; Z79.82 Long term (current) use of aspirin; Z79.899 Other long term (current) drug therapy
CPT/HCPCS: 99282

== ENCOUNTER 2023-01-10 11:15 | Outpatient (RCR) | payer MEDICARE, SELFPAY ==
[2022-11-26 07:20] VITALS: BMI 25.2
[2022-12-12 00:39] VITALS: BP 100/50
--- NOTE | 2022-12-27 06:55 | CR.ITP_ITS ---
Nutrition - Initial Assessment Weight Mgt (Other Care) Height: 5 ft 7 in Weight:: 155 lb BMI: 24.3 Psychosocial - Initial Assess Target Goals Target Goals Referral to Behavioral Health PS - Interventions: Yes: Attend Stress Management Classes and No: Referral to Behavioral Health if PHQ-9 score >9: and No: Referral to Physician if PHQ-9 if score is 5-9: Patient Health Questionnaire PHQ-9 Screening 60-Day Re-eval Assessment: 1. Little interest or pleasure in doing things: Several days 2. Feeling down, depressed, or hopeless: Not at all 3. Trouble falling or staying asleep, or sleeping too much: Several days 4. Feeling tired or having little energy: Several days 5. Poor appetite or overeating: More than half the days 6. Feeling bad about yourself -- or that you are a failure or have let yourself or your family down: Not at all 7. Trouble concentrating on things, such as reading the newspaper or watching television: Not at all 8. Moving or speaking so slowly that other people could have noticed. Or the opposite - being so fidgety or restless that you have been moving around a lot more than usual: Not at all 9. Thoughts that you would be better off , or of hurting yourself in some way: Not at all How difficult have these problems made it for you to do your work, take care of things at home, or get along with other people?: Somewhat difficult Total Score: 5 Self-Efficacy 6-Item Scale 60-Day Re-eval Assessment: We would like to know how confident you are in doing certain activities. Please select your confidence level for: Fatigue Select Number: 6 Physical Discomfort or Pain Select Number: 6 Emotional Distress Select Number: 7 Other Symptoms or Health Problems Select Number: 7 Different Tasks and Activities Select Number: 8 Medication Select Number: 9 Total Score:: 7 Nutrition Survey Nutrition Survey Instructions Scoring Instructions Exercise - 60-day Assessment Visit Date of Eval: 12/27/22 Session #:: 22 Physician Prescribed Exercise Modalities: Treadmill and NuStep Frequency: 3x/week for 12 weeks [36 sessions] Intensity: 60-80% of age predicted maximum heart rate reserve Duration: 30 - 45 minutes Current METSs:: 6.4 Target Heart Rate:: 82-102 Current RPE:: 12-13 Maximum Excercise HR:: 94 Resting Blood Pressure: 110/48 Maximum Exercise Blood Pressure: 142/60 EKG Type: Sinus bradyt to sinus rhythm wiht rare PACs, PVCs Current Physical Activity or Exercising minutes: 37:56 Outcomes & Goals Goals:: Verbalizes understanding of THR, RPE & goal METS by session 6, Documents in home exercise log/reports 30 min aerobic 5 day/wk by DC and Demonstrates accurate pulse taking by DC Intervention & Plan Exercise Program Goals: Instruct on personal THR & RPE, Instruct on MET level & personal MET goal, Show patient to take own pulse /validate performance until accurate and Instruct on home exercise 30-day Reassessments 30 day Reassessments:: Met Physical Activity Home Exercise Physical Activity - Home Exercise: Safe Exercise, Warm-up, Self-monitoring, Cool-Down, Home Exercise > 30 min Daily and Sitting Time <3 hours/daily Outcomes & Goals Outcomes/Goals: Demonstrates correct Warm-up/exercise Cool-Down (S3) if = 2.5 METs, Verbalizes symptoms of exercise intolerance by Session 3 (S3) and Demonstrate safe equipment use (S3) & follows exercise prescrition (6) Intervention & Plan Plan/Intervention: Instruct warm-up & cool-down if exercising at > 2 METs, Instruct on symptoms of exercise intolerance & actions to take, Instruct & monitor on saf and Assess intial functional capacity & safety risk 30-day Reassessments 30 day Reassessments:: Met Nutrition - 30-Day Assessment Weight Mgt (Other Care) Height: 5 ft 7 in Weight:: 155 lb BMI: 24.3 Nutrition - 60-Day Assessment Program Goals Nutrition Program Goals Patient has diagnosis of Hyperlipidemia (ICD E78)?: Yes Visit Date of Eval: 12/27/22 Session #:: 22 Cholesterol/Lipids (Other Core Measures) Determine presence & major risk factors that modify LDL goal: Hypertension or hypertensive medication, Family history of premature CHD in Male < 55 years: female <65 yearsFa and Age men > 45 years; women >/= 55 years Outcomes/Goals: Pt IDs own risk factors & lifestyle modifications by Session 10, Verbalizes symptoms of angina & response by session 3. and Pt independently manages Intervention/Plan: Instruct on personal lipid levels & lipid goals/NCEP guidelines and Instruct on cholesterol Referral to dietitian:: Yes 30-day Reassessments:: Not Met Reassessment Notes & Comments:: Nutritional Services has been unable to reach the patient. Weight Mgt (Other Care) Not Applicable: Yes Height: 5 ft 7 in Weight:: 155 lb BMI: 24.3 Diagnosis Overweight/Obesity BMI> 30% ICD-10 E66: No Diagnosis High BMI/Morbid Obesity BMI> 35% ICD-10 Z68: No 30 day Reassessments:: Met Healthy Eating Habits Will attend diet classes:: Yes Outcomes/Goals:: Consume diet rich in vegs,fruits,whole grain/high fiber,fish,lean meat and Limit sat/trans fats,cholesterol & added salts & sugars Intervention/Plan:: Assess current eating habits 30-day Reassessments:: Not Met Reassessment Notes & Comments:: Nutritional Services has been unable to reach the patient Education Gave educational materials for:: Healthy eating Core - 60-Day Assessment Visit Date of Eval: 12/27/22 Session #:: 22 Medication Compliance Preventative Medication(s):: Aspirin, Ticagrelor/P2Y12 inhibitor, Statin/lipid and Beta carlos Outcomes/Goals: Verbalizes medications,desired effect & common side effects @ DC, Pt self-reports following medication regimen and Keeps card in wallet w/medications listed by DC Interventions/plans: Instruct on medication effects & side effects, Review medication list w/patient every two weeks and Instruct importance of taking meds as ordered & assist problem solving 30-day Reassessments:: Met Tobacco Use Tobacco Use: Non-smoker Hypertension Hypertension Diagnosis:: Hypertension ICD-10 I10 Resting Blood Pressure:: 110/48 [place] [employer] Hypertension Guidelines Peak Exercise Blood Pressure:: 142/60 Outcomes/Goals: Able to verbalize/achieve optimal blood pressure <130/80 and Incorporates diet changes & exercise for blood pressure control by DC Interventions/plan: Instruct on optimal blood pressure, hypertension & medications and Instruct on effects of sodium, alcohol, stress, exercise &hypertension 30 day Reassessments:: Met Tobacco Cessation Referral Smoking Cessation Referral:: No Individual Education/Counseling:: No Education Schedule Given:: No Psychosocial - 30-Day Assess Target Goals Target Goals Referral to Behavioral Health PS - Interventions: Yes: Attend Stress Management Classes and No: Referral to Behavioral Health if PHQ-9 score >9: and No: Referral to Physician if PHQ-9 if score is 5-9: Outcomes/Goals: See list Psychosocial Outcomes/Goals:: ID's personal stressors & 2 strategies to manage stress by discharge Psychosocial - 60-Day Assess VIsit Date of Eval: 12/27/22 Session #:: 22 Not Applicable: Yes History of previous Mental disease:: No Target Goals Target Goals Psychosocial Test Tool Used:: PHQ-9 Questionnaire phq-9 Severity Referral to Behavioral Health PS - Interventions: Yes: Attend Stress Management Classes and No: Referral to Behavioral Health if PHQ-9 score >9: and No: Referral to Physician if PHQ-9 if score is 5-9: Outcomes/Goals: See list Psychosocial Outcomes/Goals:: ID's personal stressors & 2 strategies to manage stress by discharge Intervention/Plan: See List Interventions/Plan:: Assess stressors,coping strategies & signs of derpression on admission, Instruct/assist pt to develop coping & personal stress Mgt strategies, Instruct patient to recognize signs & symptoms of depression and Instruct patient to recog 30-day Reassessments: 30 day Reassessments:: Met Psychosocial - 90-Day Assess Target Goals Target Goals Referral to Behavioral Health PS - Interventions: Yes: Attend Stress Management Classes and No: Referral to Behavioral Health if PHQ-9 score >9: and No: Referral to Physician if PHQ-9 if score is 5-9: Psychosocial - Final Assessmen Target Goals Target Goals Referral to Behavioral Health PS - Interventions: Yes: Attend Stress Management Classes and No: Referral to Behavioral Health if PHQ-9 score >9: and No: Referral to Physician if PHQ-9 if score is 5-9: Nutrition - 90-Day Assessment Weight Mgt (Other Care) Height: 5 ft 7 in Weight:: 155 lb BMI: 24.3 Nutrition - Final Assessment Weight Mgt (Other Care) Height: 5 ft 7 in Weight:: 155 lb BMI: 24.3
[2022-12-27 07:04] VITALS: BP 110/48; BMI 24.3
== END 2023-01-11 23:59 ==
LOC: CR 11:15
PROVIDERS: PCP Internal Medicine; Referring Provider Internal Medicine Cardiovascular Disease; Visit Provider Internal Medicine Cardiovascular Disease
DX: Z95.5 Presence of coronary angioplasty implant and graft (principal)
CPT/HCPCS: 93798

== ENCOUNTER → 2023-01-14 | Outpatient (CLI) | payer MEDICARE, SELFPAY ==
[2022-11-26 07:20] VITALS: BMI 25.2
[2022-12-27 07:04] VITALS: BMI 24.3
--- NOTE | 2023-01-14 16:14 | MRI_ITS ---
We are attempting to reach an attending provider to discuss findings. An addendum with communication details will be sent when the communication is complete. STUDY: MRI CERVICAL SPINE WITHOUT CONTRAST REASON FOR EXAM: Male, 87 years old. pain TECHNIQUE: Standardized fat and water weighted pulse sequences were obtained in the sagittal and axial planes. COMPARISON: Radiographic cervical spine series December 17, 2022 FINDINGS: Normal foramen magnum and brainstem-cervical cord junction. Normal craniovertebral junction. Normal anterior atlantoaxial articulation. Normal odontoid process. Normal cervical lordosis. Normal vertebral bodies and posterior osseous elements. C2-3: There are edematous changes seen within the left inferior endplate of C2 and superior endplate of C3 possibly due to old trauma or inflammatory changes.. Similar abnormal signal changes are seen within the right posterior arch of C2. Normal disc height, signal and morphology. Normal central canal and intervertebral neural foramina. C3-4: Normal endplates. Normal disc height, signal and morphology. Normal central canal and minor right neural foraminal stenosis secondary to bony hypertrophy. C4-5: Normal endplates. Normal disc height, signal and morphology. Normal central canal and intervertebral neural foramina. C5-6: Mild anterior endplate spurring.. Normal disc height, signal and morphology. Normal central canal and intervertebral neural foramina. C6-7: Mild anterior endplate spurring. Normal disc height, signal and morphology. Normal central canal and intervertebral neural foramina. C7-T1: Normal endplates. Abnormal signal intensity noted within the right pedicle and transverse process Normal disc height, signal and morphology. Normal central canal and intervertebral neural foramina. Normal cervical cord. Normal visualized soft tissue structures. MRI/Spine Cervical (Routine) IMPRESSION: Minor right neural foraminal stenosis at C3-4 secondary to bony hypertrophy.. Nonspecific edematous endplate changes within the left inferior endplate of C2 anterior endplate of C3 as well as the right posterior arch of C2 and right pedicle as well as transverse process of T1 without definitive evidence for fracture. Inflammatory disease or neoplasm not entirely excluded Limited repeat study with contrast would be helpful for further assessment Electronically Signed: Michael Bedoya MD at 16:52 EST ,
== END | disposition home or self-care (01) ==
PROVIDERS: PCP Internal Medicine; Referring Provider Orthopaedic Surgery; Visit Provider Orthopaedic Surgery
DX: M54.12 Radiculopathy, cervical region (principal)
CPT/HCPCS: 72141

== ENCOUNTER 2023-01-31 11:15 | Outpatient (RCR) | payer MEDICARE, SELFPAY ==
[2022-12-27 07:04] VITALS: BMI 24.3
[2023-01-12 00:48] VITALS: BP 100/50; BP 110/48
--- NOTE | 2023-01-26 08:25 | CR.ITP_ITS ---
Nutrition - Initial Assessment Weight Mgt (Other Care) Height: 5 ft 7 in Weight:: 152 lb BMI: 23.8 Psychosocial - Initial Assess Target Goals Target Goals Patient Health Questionnaire PHQ-9 Screening 90-Day Re-eval Assessment: 1. Little interest or pleasure in doing things: Several days 2. Feeling down, depressed, or hopeless: Not at all 3. Trouble falling or staying asleep, or sleeping too much: Several days 4. Feeling tired or having little energy: Several days 5. Poor appetite or overeating: More than half the days 6. Feeling bad about yourself -- or that you are a failure or have let yourself or your family down: Not at all 7. Trouble concentrating on things, such as reading the newspaper or watching television: Not at all 8. Moving or speaking so slowly that other people could have noticed. Or the opposite - being so fidgety or restless that you have been moving around a lot more than usual: Not at all 9. Thoughts that you would be better off , or of hurting yourself in some way: Not at all How difficult have these problems made it for you to do your work, take care of things at home, or get along with other people?: Somewhat difficult Total Score: 5 Self-Efficacy 6-Item Scale 90-Day Re-eval Assessment: We would like to know how confident you are in doing certain activities. Please select your confidence level for: Fatigue Select Number: 6 Physical Discomfort or Pain Select Number: 6 Emotional Distress Select Number: 7 Other Symptoms or Health Problems Select Number: 7 Different Tasks and Activities Select Number: 8 Medication Select Number: 9 Total Score:: 7 Nutrition Survey Nutrition Survey Instructions Scoring Instructions Exercise - 90-day Assessment Visit Date of Eval: 01/26/23 Session #:: 35 Physician Prescribed Exercise Modalities: Treadmill and NuStep Frequency: 3x/week for 12 weeks [36 sessions] Intensity: 60-80% of age predicted maximum heart rate reserve Duration: 30 - 45 minutes Current METSs:: 6.4 Target Heart Rate:: 82-102 Current RPE:: 12-14 Maximum Excercise HR:: 84 Resting Blood Pressure: 110/48 Maximum Exercise Blood Pressure: 126/52 EKG Type: SB to NSR with rare PAC's and PVC's Outcomes & Goals Goals:: Verbalizes understanding of THR, RPE & goal METS by session 6, Documents in home exercise log/reports 30 min aerobic 5 day/wk by DC, Demonstrates accurate pulse taking by DC and Other additional outcome/goals: see below Intervention & Plan Exercise Program Goals: Instruct on personal THR & RPE, Instruct on MET level & personal MET goal, Show patient to take own pulse /validate performance until accurate, Instruct on home exercise and Other additional plan/int 30-day Reassessments 30 day Reassessments:: Met Physical Activity Home Exercise Physical Activity - Home Exercise: Safe Exercise, Warm-up, Self-monitoring, Cool-Down, Home Exercise > 30 min Daily and Sitting Time <3 hours/daily Outcomes & Goals Outcomes/Goals: Demonstrates correct Warm-up/exercise Cool-Down (S3) if = 2.5 METs, Verbalizes symptoms of exercise intolerance by Session 3 (S3), Demonstrate safe equipment use (S3) & follows exercise prescrition (6) and Other: See below Intervention & Plan Plan/Intervention: Instruct warm-up & cool-down if exercising at > 2 METs, Instruct on symptoms of exercise intolerance & actions to take, Instruct & monitor on saf, Assess intial functional capacity & safety risk and Other See below 30-day Reassessments 30 day Reassessments:: Met Nutrition - 30-Day Assessment Weight Mgt (Other Care) Height: 5 ft 7 in Weight:: 152 lb BMI: 23.8 Nutrition - 60-Day Assessment Weight Mgt (Other Care) Height: 5 ft 7 in Weight:: 152 lb BMI: 23.8 Core - 90 Day Assessment Visit Date of Eval: 01/26/23 Session #:: 35 Medication Compliance Preventative Medication(s):: Aspirin, Ticagrelor/P2Y12 inhibitor, Statin/lipid and Beta carlos H/O mental health issues: depression, anxiety, or addiction?: No Doesn?t believe in the benefits of treatment?: No Believes medications are unnecessary or harmful?: No Has a concern about medication side effects?: No Expresses concern over the cost of medications?: No Outcomes/Goals: Verbalizes medications,desired effect & common side effects @ DC, Pt self-reports following medication regimen, Keeps card in wallet w/medications listed by DC and Other additional outcome/goals: Interventions/plans: Instruct on medication effects & side effects, Review medication list w/patient every two weeks, Instruct importance of taking meds as ordered & assist problem solving and Other additional 30-day Reassessments:: Met Tobacco Use Tobacco Use: Non-smoker Hypertension Hypertension Diagnosis:: Hypertension ICD-10 I10 Resting Blood Pressure:: 110/48 [place] [employer] Hypertension Guidelines Peak Exercise Blood Pressure:: 126/52 Outcomes/Goals: Able to verbalize/achieve optimal blood pressure <130/80, Incorporates diet changes & exercise for blood pressure control by DC and Other additional outcomes/goals Interventions/plan: Instruct on optimal blood pressure, hypertension & medications, Instruct on effects of sodium, alcohol, stress, exercise &hypertension and Other additional plan/interventions 30 day Reassessments:: Met Tobacco Cessation Referral Smoking Cessation Referral:: No Individual Education/Counseling:: No Education Schedule Given:: Yes Psychosocial - 30-Day Assess Target Goals Target Goals Psychosocial - 60-Day Assess Target Goals Target Goals Psychosocial - 90-Day Assess VIsit Date of Eval: 01/26/23 Session #:: 35 History of previous Mental disease:: No Target Goals Target Goals 30-day Reassessments: 30 day Reassessments:: Met Psychosocial - Final Assessmen Target Goals Target Goals Nutrition - 90-Day Assessment Program Goals Nutrition Program Goals Patient has diagnosis of Hyperlipidemia (ICD E78)?: Yes Visit Date of Eval: 01/26/23 Session #:: 35 Cholesterol/Lipids (Other Core Measures) Determine presence & major risk factors that modify LDL goal: Cigarette smoking, Hypertension or hypertensive medication, Low HDL cholesterol <40 mg/dL*, Family history of premature CHD in Male < 55 years: female <65 yearsFa and Age men > 45 years; women >/= 55 years Outcomes/Goals: Pt IDs own risk factors & lifestyle modifications by Session 10, Verbalizes symptoms of angina & response by session 3., Pt independently manages and Other Additional Outcomes/Goals: Intervention/Plan: Advocate for lipid panel cholesterol medication if applicable, Instruct on personal lipid levels & lipid goals/NCEP guidelines, Instruct on cholesterol and Other additional plan/int 30-day Reassessments:: Met Weight Mgt (Other Care) Height: 5 ft 7 in Weight:: 152 lb BMI: 23.8 Diagnosis Overweight/Obesity BMI> 30% ICD-10 E66: No Diagnosis High BMI/Morbid Obesity BMI> 35% ICD-10 Z68: No Outcomes/Goals: Pt sets, maintains & shows weight loss goal & trend during rehab and Other additional outcomes/goals 30 day Reassessments:: Met Healthy Eating Habits Will attend diet classes:: Yes Outcomes/Goals:: Consume diet rich in vegs,fruits,whole grain/high fiber,fish,lean meat, Limit sat/trans fats,cholesterol & added salts & sugars and Other additional outcome/goals: Intervention/Plan:: Assess current eating habits and Other Additional plan/interventions 30-day Reassessments:: Met Education Gave educational materials for:: Signs & symptoms of hypoglycemia, Signs & symptoms of hyperglycemia, Relate diabetes to coronary artery disease and Healthy eating Nutrition - Final Assessment Weight Mgt (Other Care) Height: 5 ft 7 in Weight:: 152 lb BMI: 23.8
[2023-01-26 08:33] VITALS: BP 110/48; BMI 23.8
== END 2023-02-10 23:59 ==
LOC: CR 11:15
PROVIDERS: PCP Internal Medicine; Referring Provider Internal Medicine Cardiovascular Disease; Visit Provider Internal Medicine Cardiovascular Disease
DX: Z95.5 Presence of coronary angioplasty implant and graft (principal)
CPT/HCPCS: 93798

== ENCOUNTER 2023-04-06 04:32 | Emergency (ER) | payer MEDICARE, SELFPAY ==
[2023-01-26 08:33] VITALS: BMI 23.8
[2023-04-06 04:33] VITALS: BP 106/46; PULSE 45; RESP 12; TEMP 35.8; O2SAT 95; BMI 23.9
[2023-04-06 04:36] VITALS: BP 106/46; PULSE 44; RESP 18; TEMP 35.8; O2SAT 95
--- NOTE | 2023-04-06 04:37 | ED.VIS.CHEST ---
HPI History of Present Illness Chief Complaint: Chest Pain Informant: patient Onset/Context/Timing Onset: Yesterday Activity at onset: gradual Timing: Continuous Quality: Positive for Pressure Location: Substernal Worsened By: Nothing Relieved By: NTG Associated Symptoms: Positive for Acid Reflux; Negative for Nausea, Vomiting, Diaphoresis, Dyspnea, Cough, Fever, Lightheadedness or Palpitations Narrative Narrative: Patient presents with chest pain that began yesterday. Patient states it came on while he was at rest. Patient states it has been constant. Patient states that his over the substernal area. Patient describes it as a pressure. Patient states nothing makes it worse. Patient states he did take nitroglycerin tablet at home which did help. Patient admits to some reflux symptoms. Patient denies any nausea or vomiting. Patient denies any shortness of breath or cough. Patient denies any lightheadedness or palpitations. Patient states he was recently started on Zetia for his cholesterol. CVD Risk Factors: Positive for Hypertension and Hypercholesterolemia; Negative for Diabetes, Family History 1' </=55 or Smoking PE Risk Factors: Negative for Recent Travel/Surgery, Recent Immobilization, Prior DVT or PE, Cancer or OCP + Smoking + >/=35 PFSH PFSH Medical History Bruit of left carotid artery Dyspnea on exertion Essential hypertension GERD (gastroesophageal reflux disease) Mixed hyperlipidemia Nonrheumatic aortic (valve) stenosis MARISOL (obstructive sleep apnea) Home Medications acetaminophen 500 mg tablet 500 - 1,000 mg PO Q6H PRN PRN Pain 08/18/18 [History Last Taken Unknown] amlodipine 2.5 mg tablet 2.5 mg PO DAILY 08/18/18 [History Last Taken 09/13/22] finasteride 5 mg tablet 5 mg PO DAILY 08/18/18 [History Last Taken Unknown] fluticasone propionate 50 mcg/actuation nasal spray,suspension 1 spray BID PRN ALLERGY SX 08/18/18 [History Last Taken Unknown] hoveudlo-gls-sqaxu acid 0.4 mg-lycopene 300 mcg-lutein 250 mcg tablet (Centrum Silver) 1 ea PO DAILY 08/18/18 [History Last Taken Unknown] vit C 250 mg-vit E 90 mg-zinc 40 mg-copper 1 qy-svziyo-ttwaty capsule (PreserVision AREDS-2) 1 ea PO BID 08/18/18 [History Last Taken Unknown] aspirin 81 mg tablet,delayed release (Adult Low Dose Aspirin) 81 mg PO DAILY 10/22/22 [History Last Taken Unknown] metoprolol tartrate 25 mg tablet 25 mg PO DAILY 10/22/22 [History Last Taken Unknown] prednisone 10 mg tablet 10 mg PO DIRECTED 12/22/22 [History Last Taken Unknown] famotidine 20 mg tablet (Pepcid) 20 mg PO DAILY #30 tabs 02/09/23 [Rx Last Taken Unknown] clopidogrel 75 mg tablet (Plavix) 75 mg PO .COMPLEX #90 tabs 03/30/23 [Rx Last Taken Unknown] Allergy/AdvReac Type Severity Reaction Status Date / Time meloxicam [From Mobic] Allergy Unknown Verified 02/09/23 09:44 Sulfa (Sulfonamide Allergy Unknown Verified 02/09/23 09:44 Antibiotics) atorvastatin AdvReac Intermediate Myalgias Verified 03/30/23 14:29 ezetimibe [From Zetia] AdvReac Intermediate Joint pain Verified 04/05/23 15:20 and myalgias, muscle weakness gabapentin AdvReac Unknown Shortness Verified 02/09/23 09:44 of breath Family History Father Myocardial infarction, Onset Age: 60 Brother Heart disease Sister Heart disease Surgical History History of appendectomy History of prostate biopsy Hx of heart artery stent Social History Smoking Status: Never smoker alcohol intake: never ROS ROS ED Constitutional Constitutional ED: Denies chills or fever(s) Eyes Eyes: Denies blurry vision or change in vision ENT ENT ED: Reports rhinorrhea; Denies sore throat Cardiovascular Cardiovascular: Reports chest pain; Denies palpitations Respiratory/Chest Respiratory/Chest: Denies cough or dyspnea Gastrointestinal Gastrointestinal: Denies nausea or vomiting Genitourinary Genitourinary ED: Denies dysuria or hematuria Musculoskeletal Musculoskeletal: Reports arthralgias, back pain and neck pain Integumentary Denies abscess or rash Neurologic Neurologic: Denies headache(s) or weakness Allergic/Immunologic Allergic/Immunologic ED: Denies mouth swelling or urticaria EXAM Physical Exam Const Vital Signs: 04/06/23 04:33 04/06/23 04:36 04/06/23 04:39 Temperature 96.4 F L 96.5 F L Temperature Source Temporal Temporal Pulse Rate 45 L 44 L Respiratory Rate 12 18 Respiratory Effort Normal Blood Pressure 106/46 L 106/46 L Blood Pressure Mean 66 66 Pulse Ox 95 95 Oxygen Delivery Method Room Air Room Air 04/06/23 05:05 04/06/23 05:08 Temperature 99.5 F H Temperature Source Temporal Pulse Rate 47 L Respiratory Rate 15 Respiratory Effort Blood Pressure 91/43 L Blood Pressure Mean 59 Pulse Ox 97 98 Oxygen Delivery Method Room Air Room Air Positive well nourished and well developed General Appearance ED: well developed and NAD HEENT Reports moist mucous membranes Neck supple and no JVD Chest Wall inspection of chest normal and palpation of chest normal Resp normal respiratory effort and clear to auscultation bilaterally Cardio regular rhythm Rate: bradycardia GI soft to palpation, non-tender and non-distended Neuro oriented x3, CN's II-XII intact bilaterally and no sensory deficits noted Sensorium / Orientation: awake and alert Motor Exam: strength 5/5 throughout Psych mental status grossly normal Heart Score History: Slightly/Non-Suspicious ECG: Normal Age: >/= 65 years Risk Factors: >/= 3 Risk Factors or History of CAD Troponin: </= Normal Limit Score: 4 MDM MDM MDM Narrative Medical decision making narrative: Differential diagnosis includes medication side effect, musculoskeletal pain, cardiac dysrhythmia, cardiac ischemia, pneumonia, pneumothorax, pulmonary embolism, and anxiety. EKG will be obtained to assess for cardiac dysrhythmia and cardiac ischemia. Chest x-ray will be obtained to assess for pneumonia and pneumothorax. CBC will be obtained to assess for leukocytosis and anemia. Comprehensive metabolic profile will be obtained to assess for hepatic function, renal function, and electrolyte abnormality. High-sensitivity troponin will be obtained to assess for cardiac ischemia. D-dimer will be obtained to assess for pulmonary embolism. Lab Data Attestation: I reviewed the patient's lab results. Lab results narrative: CBC was reviewed. There is a slight leukocytosis of 11.7. Remainder is within normal limits. Basic metabolic profile was reviewed and was essentially within normal limits. D-dimer was reviewed and was 0.73. DLCO is normal for patient's age. High-sensitivity troponin was reviewed and was normal at 17. Labs: Laboratory Results - last 24 hr 04/06/23 04:40 WBC 11.7 H RBC 4.52 L Hgb 14.0 Hct 42.8 MCV 94.7 H MCH 31.0 MCHC 32.7 RDW Std Deviation 49.1 H RDW Coeff of Kristan 14.2 Plt Count 285 MPV 10.5 Immature Gran % (Auto) 0.500 Neut % (Auto) 61.1 Lymph % (Auto) 18.7 L Stokes % (Auto) 15.7 H Eos % (Auto) 3.0 Baso % (Auto) 1.0 Absolute Neuts (auto) 7.2 Absolute Lymphs (auto) 2.20 Nucleated RBC % 0 Differential Comment SCANNED Diff Path Review July foll D-Dimer Quant (PE/DVT) 0.73 H* Sodium 139 Potassium 4.0 Chloride 106 Carbon Dioxide 29.0 Anion Gap 4 L BUN 19 H Creatinine 1.14 Estim Creat Clear Calc 44.29 Est GFR (MDRD) Af Amer 78 Est GFR (MDRD) Non-Af 65 BUN/Creatinine Ratio 16.7 Glucose 128 H Calcium 9.3 Troponin I High Sens 17 Radiography Chest X-Ray - ED: 1 View, Read by ED Physician, Read by Radiologist and No Acute Disease Diagnostic Testing: Clinical Impression(s) from Imaging Studies Chest X-Ray 04/06/23 04:56 IMPRESSION: No evidence of acute cardiopulmonary disease. Electronically Signed: Michael PompaDO at 5:10 EST Reading Location ID and State: [facility] / [place] Tel , Service support , Portable 1 view chest x-ray was obtained. On my independent interpretation, lung paige are clear. There is normal cardiac silhouette. Bony thorax is normal. There is no acute process noted. Radiologist also interpreted the x-ray and agrees. EKG Initial EKG: Attestation: I personally reviewed and interpreted this EKG as follows: Interpretation: No Acute Injury Pattern and Sinus Bradycardia (52) Comments: EKG was obtained. On my independent interpretation, it showed a sinus bradycardia with a rate of 52. NH interval, QRS interval, and QTc intervals were all normal. [place] was normal. There are no acute ST or T wave changes. Prior EKG tracings: available for review Prior: Unchanged (12/06/2022) Treatment and Re-Evaluation :: Patient was given aspirin and nitroglycerin here. Patient was advised of his findings. Patient has a HEART score of 4. Patient was advised that his pain is likely coming from the Zetia. Patient was instructed to follow-up with his primary care physician in 3 to 5 days. Patient was also instructed to follow-up with cardiology in 3 to 5 days. Patient understood and was agreeable with the plan. All questions were answered. Discharge Plan Triage Chief Complaint: Chest Pain ED Provider: Art Ernandez Dx/Rx/DC Orders Clinical Impression: Chest pain Instructions: ED Chest Pain, Uncertain Cause Prescriptions: No Action aspirin [Adult Low Dose Aspirin] 81 mg tablet,delayed release (DR/EC) 81 mg PO DAILY metoprolol tartrate 25 mg tablet 25 mg PO DAILY famotidine [Pepcid] 20 mg tablet 20 mg PO DAILY Qty: 30 11RF prednisone 10 mg tablet 10 mg PO DIRECTED Rx Instructions: see taper instructions amlodipine 2.5 MG tablet 2.5 mg PO DAILY acetaminophen 500 MG tablet 500 - 1,000 mg PO Q6H PRN PRN (Reason: Pain) fluticasone propionate 1 SPRAY spray,suspension 1 spray NASAL BID PRN (Reason: ALLERGY SX) finasteride 5 MG tablet 5 mg PO DAILY Centrum Silver 1 EACH tablet 1 ea PO DAILY PreserVision AREDS-2 1 EACH capsule 1 ea PO BID clopidogrel [Plavix] 75 mg tablet 75 mg PO .COMPLEX Qty: 90 3RF Rx Instructions: 75 mg orally Tuesday morning (04/03/23) take Loading dose of 4 tablets (300 mg), then take 1 tablet by mouth daily; Primary Care Provider: Mariano Ocampo Referrals: Mariano Ocampo MD [Primary Care Provider] - 3-5 Days Sharyn Gonzalez NP, ANNUAL GIVING DIRECTOR-C [Non-Staff -Ordering Privileges] - 3-5 Days Disposition Disposition: Home, Self Care
--- NOTE | 2023-04-06 04:56 | RAD_ITS ---
INDICATION: chest pain EXAMINATION/TECHNIQUE: X-RAY - XR Chest 1 View COMPARISON: 09/08/2022. FINDINGS: LINES/DEVICES: None. LUNGS: No consolidation or evidence of an effusion. No evidence of edema or a pneumothorax. MEDIASTINUM AND CARDIOVASCULAR STRUCTURES: Cardiac silhouette is normal in size and contour. Mediastinum is unremarkable. BONES AND SOFT TISSUES: No acute abnormality. RAD/Chest 1 View (Portable) IMPRESSION: No evidence of acute cardiopulmonary disease. Electronically Signed: Michael Pompa DO at 5:10 EST ,
[2023-04-06 05:04] LABS: Absolute Neutrophil Count 7.2 X10^3/uL (2.0-7.7); Basophil# 0.12 X10^3/uL; Differential Indicated SCAN CRITERIA MET; Eosinophil# 0.35 X10^3/uL; Hematocrit 42.8 % (40-54); Lymphocyte % 18.7 % (19-41); Mean Corp Hgb Conc 32.7 g/dL (32-36); Mean Corpuscular Volume 94.7 fL (80-94); Mean Platelet Vol. 10.5 fl (6.2-12.0); Monocyte# 1.84 X10^3/uL; Monocyte% 15.7 % (0-10); NRBC Flagged by Analyzer 0 % (0-5); Neutrophil # 7.17 X10^3/uL (2.7-7.7); Neutrophil % 61.1 % (47-70); POSITIVE DIFFERENTIAL YES; Platelet Count 285 K/mm3 (150-450); RBC Distribution Width CV 14.2 % (11.6-14.6); RBC Distribution Width SD 49.1 fl (35.1-43.9); Red Blood Count 4.52 M/mm3 (4.6-6.2); White Blood Count 11.7 K/mm3 (4.4-11.0)
[2023-04-06 05:05] VITALS: BP 91/43; PULSE 47; RESP 15; TEMP 37.5; O2SAT 97
[2023-04-06] MEDS: Aspirin 81 MG TAB.CHEW 324 MG PO (05:06)
[2023-04-06 05:08] VITALS: O2SAT 98
[2023-04-06 05:15] LABS: D-Dimer Quantitative (DVT/PE) 0.73 FEU/ug/m (0.27-0.49)
[2023-04-06 05:22] LABS: Anion Gap 4 (5-15); BUN 19 mg/dL (7-18); BUN/Creat Ratio 16.7 RATIO (10-20); Calcium,Total 9.3 mg/dL (8.5-10.1); Chloride 106 mmol/L (98-107); Creatinine, Serum 1.14 mg/dL (0.70-1.30); EST Glomerular Filtration Rate 65 mL/min (>60); Est Glom Filt Rate - Afr Amer 78 mL/min (>60); Estimated Creatinine Clearance 44.29 ml/min; Glucose 128 mg/dL (74-106); Sodium Level 139 mmol/L (136-145); Troponin-I HS 17 pg/mL (3.0-78.0)
--- OUTSIDE RECORDS SUMMARY | 2023-04-06 05:31 | XMS RPT_ITS | CCD ---
Author Name Unknown Address [address] [place] [address] Organization [facility] Care Team Providers Care 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 Name Role Phone Ruby PACHECO, Mariano [place] Primary Care Provider [phone] CLAYTON AYON Attending Unavailable CLAYTON AYON Admitting Unavailable RUBY, MARIANO Primary Care Unavailable ALOK WHITEHEAD Attending Unavailable RUBY, MARIANO Primary Care Unavailable CLAYTON AYON Attending Unavailable JASPER GEE Referring Unavailable RUBY, MARIANO Primary Care Unavailable Mariano Beltran Primary Care Provider Mariano Beltran MD Primary Care Provider [phone] MARIANO BELTRAN Referring Unavailable RUBY, MARIANO [place] Primary Care Unavailable RUBY, MARIANO [place] Referring Unavailable BELTRAN, MARIANO [place] Primary Care Unavailable MARIANO BELTRAN Attending Unavailable RUBY, MARIANO [place] Primary Care Unavailable RUBY, MARIANO [place] Referring Unavailable RUBY, MARIANO [place] Primary Care Unavailable RUBY, MARIANO [place] Referring Unavailable RUBY, MARIANO [place] Primary Care Unavailable MARIANO BELTRAN Attending Unavailable RUBY, MARIANO [place] Primary Care Unavailable BELTRAN, MARIANO [place] Referring Unavailable BELTRAN, MARIANO [place] Primary Care Unavailable RUBY, MARIANO [place] Attending Unavailable RUBY, MARIANO [place] Primary Care Unavailable NATHAN PECK Attending Unavailable RUBY, MARIANO [place] Primary Care Unavailable RUBY, MARIANO [place] Attending Unavailable RUBY, MARIANO [place] Primary Care Unavailable BELTRAN, MARIANO [place] Referring Unavailable BELTRAN, MARIANO [place] Primary Care Unavailable RUBY, MARIANO [place] Attending Unavailable BELTRAN, MARIANO [place] Primary Care Unavailable BELTRAN, MARIANO [place] Referring Unavailable BELTRAN, MARIANO [place] Primary Care Unavailable BELTRANMARIANO Bhakta Attending Unavailable MARIANO BELTRAN Primary Care Unavailable Allergies Allergy Classification Reported Allergen(s) Allergy Type Date of Onset Reaction(s) Facility (20 sources) gabapentin; Translations: [GABAPENTIN] Drug Allergy 5 Shortness of Breath, Other: See Comments [facility] (13 sources) meloxicam; Translations: [MELOXICAM] Drug Allergy 7 GI Upset [facility] Work Phone: (20 sources) Sulfonamides (Antibiotic); Translations: [SULFA (SULFONAMIDE ANTIBIOTICS)] Propensity to adverse reactions 6 [facility] (9 sources) meloxicam Drug Allergy 3 [facility] Medications Current Medications Medication Drug Class(es) Dates Sig (Normalized) Sig (Original) Multiple Vitamins-Minerals (CENTRUM SILVER PO) (9 sources) Multiple Vitamins-Minerals (CENTRUM SILVER PO) Take by mouth. 0 Active Multiple Vitamins-Minerals (PRESERVISION AREDS 2 PO) (9 sources) Multiple Vitamins-Minerals (PRESERVISION AREDS 2 PO) Take by mouth. 0 Active raNITIdine 300 mg oral capsule (9 sources) Histamine-2 Receptor Antagonist take 1 capsule by mouth twice daily raNITIdine (Zantac) 300 MG capsule Take 300 mg by mouth 2 times daily. Protect from light 0 Active terbinafine (1 source) Allylamine Antifungal End: 08-11-2022 TERBINAFINE HCL ORAL Take by mouth. 2 day for 1 week for 1 month 0 08/11/2022 Active Completed/Discontinued Medications Medication Drug Class(es) Dates Sig (Normalized) Sig (Original) acetaminophen 325 mg oral tablet (13 sources) Start: 09-20-2022 End: 09-21-2022 take 1 tablet by mouth every four hours as needed for pain acetaminophen (Tylenol) tablet 650 mg Problems Active Problems Problem Classification Problem Date Documented Date Episodic/Chronic Blindness and vision defects (2 sources) Visual disturbance; Translations: [Unspecified visual disturbance] 12-22-2022 Episodic Coronary atherosclerosis and other heart disease (20 sources) Coronary arteriosclerosis; Translations: [Atherosclerotic heart disease of [place] coronary artery with other forms of angina pectoris] Onset: 09-14-2022 09-16-2022 Chronic Coronary atherosclerosis and other heart disease (4 sources) Stented coronary artery; Translations: [Presence of coronary angioplasty implant and graft] Onset: 09-20-2022 09-21-2022 Episodic Disorders of lipid metabolism (20 sources) Hyperlipidemia; Translations: [Hyperlipidemia, unspecified] Onset: 01-07-2014 Chronic Esophageal disorders (14 sources) Gastroesophageal reflux disease; Translations: [Gastro-esophageal reflux disease without esophagitis] Onset: 07-09-2014 07-09-2014 Chronic Essential hypertension (20 sources) Essential hypertension; Translations: [Essential (primary) hypertension] Onset: 10-08-2019 Chronic Genitourinary symptoms and ill-defined conditions (1 source) Increased frequency of urination; Translations: [Frequency of micturition] 12-27-2022 Episodic Gout and other crystal arthropathies (12 sources) Gout; Translations: [Gout, unspecified] Onset: 09-03-2008 01-05-2013 Chronic Headache; including migraine (2 sources) Paroxysmal hemicrania; Translations: [Episodic paroxysmal hemicrania, not intractable] 12-22-2022 Chronic Headache; including migraine (1 source) Cough headache syndrome; Translations: [Primary cough headache] Episodic Heart valve disorders (20 sources) Aortic stenosis, non-rheumatic ; Translations: [Nonrheumatic aortic (valve) stenosis] Onset: 08-13-2022 08-13-2022 Chronic Hyperplasia of prostate (14 sources) Benign prostatic hypertrophy with outflow obstruction; Translations: [Benign prostatic hyperplasia with lower urinary tract symptoms] Onset: 10-19-2007 11-25-2015 Chronic Immunizations and screening for infectious disease (2 sources) Needs influenza immunization; Translations: [Encounter for immunization] 01-25-2023 Episodic Other and unspecified benign neoplasm (1 source) Benign neoplasm of other specified sites; Translations: [Benign neoplasm of skin of upper limb, including shoulder] Episodic Other circulatory disease (9 sources) Carotid bruit; Translations: [Other specified symptoms and signs involving the circulatory and respiratory systems] Onset: 09-16-2022 09-16-2022 Episodic Other connective tissue disease (1 source) Cramp in foot; Translations: [Cramp and spasm] Episodic Other ear and sense organ disorders (12 sources) Bilateral hearing loss; Translations: [Unspecified hearing loss, bilateral] Onset: 01-07-2014 01-07-2014 Chronic Other liver diseases (1 source) Alkaline phosphatase raised; Translations: [Abnormal levels of other serum enzymes] 01-25-2023 Episodic Other liver diseases (1 source) Abnormal levels of other serum enzymes; Translations: [Alkaline phosphatase elevation] Onset: 01-31-2023 Episodic Other lower respiratory disease (5 sources) Nodule of lung; Translations: [Solitary pulmonary nodule] Onset: 12-09-2022 12-09-2022 Episodic Other nutritional; endocrine; and metabolic disorders (1 source) Hypoalbuminemia; Translations: [Other disorders of plasma-protein metabolism, not elsewhere classified] 01-25-2023 Chronic Other upper respiratory disease (13 sources) Allergic rhinitis; Translations: [Allergic rhinitis, unspecified] Onset: 09-18-2009 09-18-2009 Chronic Peripheral and visceral atherosclerosis (1 source) Intermittent claudication; Translations: [Peripheral vascular disease, unspecified] 01-25-2023 Chronic Residual codes; unclassified (20 sources) Obstructive sleep apnea syndrome; Translations: [Obstructive sleep apnea (adult) (pediatric)] Onset: 07-19-2007 02-27-2018 Chronic Residual codes; unclassified (2 sources) Obstructive sleep apnea (adult) (pediatric); Translations: [Obstructive sleep apnea (adult) (pediatric)] Onset: 09-16-2022 Chronic Residual codes; unclassified (1 source) Family history of ischemic heart disease; Translations: [Family history of ischemic heart disease and other diseases of the circulatory system] 09-16-2022 Episodic Residual codes; unclassified (2 sources) Family history of ischemic heart disease and other diseases of the circulatory system; Translations: [Family history of ischemic heart disease and other diseases of the circulatory system] Onset: 09-16-2022 Episodic Spondylosis; intervertebral disc disorders; other back problems (13 sources) Degeneration of lumbar intervertebral disc; Translations: [Other intervertebral disc degeneration, lumbar region] Onset: 04-01-2014 04-01-2014 Chronic Spondylosis; intervertebral disc disorders; other back problems (5 sources) Neck pain; Translations: [Cervicalgia] Onset: 12-09-2022 12-10-2022 Episodic Superficial injury; contusion (1 source) Contusion of right forearm; Translations: [Contusion of right forearm, initial encounter] 01-25-2023 Episodic Past or Other Problems Problem Classification Problem Date Documented Da te Episodic/Chronic Diabetes mellitus without complication (16 sources) Impaired fasting glycemia; Translations: [Impaired fasting glucose] Onset: 01-19-2021 Episodic Heart valve disorders (2 sources) Heart murmur; Translations: [Cardiac murmur, unspecified] Onset: 07-22-2022 Episodic Other circulatory disease (13 sources) Abnormal chest sounds; Translations: [Other specified symptoms and signs involving the circulatory and respiratory systems] Onset: 12-14-2018 12-14-2018 Episodic Other circulatory disease (1 source) Other specified symptoms and signs involving the circulatory and respiratory systems; Translations: [Bruit of left carotid artery] Onset: 09-01-2022 Episodic Other connective tissue disease (1 source) Other symptoms and signs involving the nervous system; Translations: [Transient neurological symptoms] Onset: 09-01-2022 Episodic Other skin disorders (12 sources) Actinic keratosis; Translations: [Actinic keratosis] Onset: 09-11-2009 03-01-2017 Episodic Results Test Name Value Interpretation Reference Range Facil ity Vital Signs Date Time Vital Sign Value Performing Clinician Dyan bach 01-25-2023 10:42-0500 Body weight 70.31 kg Mariano Beltran MD Work Phone: [facility] 01-25-2023 10:42-0500 Diastolic blood pressure 58 mm[Hg] Mariano Beltran MD Work Phone: [facility] 01-25-2023 10:42-0500 Heart rate 42 /min Mariano Beltran MD Work Phone: [facility] 01-25-2023 10:42-0500 SaO2% (BldA) [Mass fraction] 99 % Mariano Beltran MD Work Phone: [facility] 01-25-2023 10:42-0500 Systolic blood pressure 110 mm[Hg] Mariano Beltran MD Work Phone: [facility] 12-27-2022 19:17-0400 Body temperature 97.3 [degF] Mariano Beltran MD Work Phone: [facility] 12-27-2022 19:17-0400 Body weight 71.26 kg Mariano Beltran MD Work Phone: [facility] 12-27-2022 19:17-0400 Diastolic blood pressure 56 mm[Hg] Mariano Beltran MD Work Phone: [facility] 12-27-2022 19:17-0400 Heart rate 53 /min Mariano Beltran MD Work Phone: [facility] 12-27-2022 19:17-0400 Respiratory rate 16 /min Mariano Beltran MD Work Phone: [facility] 12-27-2022 19:17-0400 SaO2% (BldA) [Mass fraction] 99 % Mariano Beltran MD Work Phone: [facility] 12-27-2022 19:17-0400 Systolic blood pressure 120 mm[Hg] Mariano Beltran MD Work Phone: [facility] 10-21-2022 10:07-0400 Body weight 74.39 kg Mariano Beltran MD Work Phone: [facility] 10-21-2022 10:07-0400 Diastolic blood pressure 62 mm[Hg] Mariano Beltran MD Work Phone: [facility] 10-21-2022 10:07-0400 Heart rate 56 /min Mariano Beltran MD Work Phone: [facility] 10-21-2022 10:07-0400 Respiratory rate 12 /min Mariano Beltran MD Work Phone: [facility] 10-21-2022 10:07-0400 Systolic blood pressure 112 mm[Hg] Mariano Beltran MD Work Phone: [facility] 09-30-2022 13:09-0400 Body height 170.2 cm Alok Rey CNP Work Phone: [facility] 09-30-2022 13:09-0400 Body mass index (BMI) [Ratio] 26.19 kg/m2 Alok Whitehead APRN - DIALYSIS BIOMED TECHNICIAN Work Phone: [facility] 09-30-2022 13:09-0400 Body weight 75.84 kg Alok Kolbg NETWORK CONTROL OPERATOR - DIALYSIS BIOMED TECHNICIAN Work Phone: [facility] 09-30-2022 13:09-0400 Diastolic blood pressure 58 mm[Hg] Alok Kolbg NETWORK CONTROL OPERATOR - DIALYSIS BIOMED TECHNICIAN Work Phone: [facility] 09-30-2022 13:09-0400 Heart rate 46 /min Alok Landadig NETWORK CONTROL OPERATOR - DIALYSIS BIOMED TECHNICIAN Work Phone: [facility] 09-30-2022 13:09-0400 SaO2% (BldA) [Mass fraction] 97 % Alok Landadig NETWORK CONTROL OPERATOR - DIALYSIS BIOMED TECHNICIAN Work Phone: [facility] 09-30-2022 13:09-0400 Systolic blood pressure 100 mm[Hg] Alok Landadig NETWORK CONTROL OPERATOR - DIALYSIS BIOMED TECHNICIAN Work Phone: [facility] 09-21-2022 09:45-0400 Heart rate 63 /min Clayton Ayon MD Work Phone: [facility] 09-21-2022 09:45-0400 Respiratory rate 16 /min Clayton Ayon MD Work Phone: [facility] 09-21-2022 08:11-0400 Body temperature 97.7 [degF] Clayton Ayon MD Work Phone: [facility] 09-21-2022 08:11-0400 SaO2% (BldA) [Mass fraction] 95 % Clayton Ayon MD Work Phone: [facility] 09-21-2022 07:45-0400 Diastolic blood pressure 61 mm[Hg] Clayton Ayon MD Work Phone: [facility] 09-21-2022 07:45-0400 Systolic blood pressure 121 mm[Hg] Clayton Ayon MD Work Phone: [facility] 09-21-2022 03:53-0400 Body mass index (BMI) [Ratio] 26.83 kg/m2 Clayton Ayon MD Work Phone: [facility] 09-21-2022 03:53-0400 Body weight 77.7 kg Clayton Ayon MD Work Phone: [facility] 09-20-2022 08:53-0400 Body height 170.2 cm Clayton Ayon MD Work Phone: [facility] 09-16-2022 15:59-0400 Body height 170.2 cm Clayton Ayon MD Work Phone: [facility] 09-16-2022 15:59-0400 Body mass index (BMI) [Ratio] 26.59 kg/m2 Clayton Ayon MD Work Phone: [facility] 09-16-2022 15:59-0400 Body weight 77.02 kg Clayton Ayon MD Work Phone: [facility] 09-16-2022 15:59-0400 Diastolic blood pressure 62 mm[Hg] Clayton Ayon MD Work Phone: [facility] 09-16-2022 15:59-0400 Heart rate 78 /min Clayton Ayon MD Work Phone: [facility] 09-16-2022 15:59-0400 SaO2% (BldA) [Mass fraction] 98 % Clayton Ayon MD Work Phone: [facility] 09-16-2022 15:59-0400 Systolic blood pressure 104 mm[Hg] Clayton Ayon MD Work Phone: [facility] 07-22-2022 09:36-0400 Body height 171.7 cm Mariano Beltran MD Work Phone: [facility] 07-22-2022 09:36-0400 Body weight 79.83 kg Mariano Beltran MD Work Phone: [facility] 07-22-2022 09:36-0400 Diastolic blood pressure 68 mm[Hg] Mariano Beltran MD Work Phone: [facility] 07-22-2022 09:36-0400 Heart rate 56 /min Mariano Beltran MD Work Phone: [facility] 07-22-2022 09:36-0400 Respiratory rate 12 /min Mariano Beltran MD Work Phone: [facility] 07-22-2022 09:36-0400 SaO2% (BldA) [Mass fraction] 98 % Mariano Beltran MD Work Phone: [facility] 07-22-2022 09:36-0400 Systolic blood pressure 124 mm[Hg] Mariano Beltran MD Work Phone: [facility] 01-20-2022 11:03-0500 Diastolic blood pressure 50 mm[Hg] Mariano Beltran MD Work Phone: [facility] 01-20-2022 11:03-0500 Systolic blood pressure 122 mm[Hg] Mariano Beltran MD Work Phone: [facility] 01-20-2022 10:12-0500 Body temperature 97.11 [degF] Mariano Beltran MD Work Phone: [facility] 01-20-2022 10:12-0500 Body weight 78.02 kg Mariano Beltran MD Work Phone: [facility] 01-20-2022 10:12-0500 Heart rate 60 /min Mariano Beltran MD Work Phone: [facility] 01-20-2022 10:12-0500 Respiratory rate 12 /min Mariano Beltran MD Work Phone: [facility] 07-20-2021 14:01-0400 Body temperature 97.3 [degF] Mariano Beltran MD Work Phone: [facility] 07-20-2021 14:01-0400 Body weight 82.1 kg Mariano Beltran MD Work Phone: [facility] 07-20-2021 14:01-0400 Diastolic blood pressure 76 mm[Hg] Mariano Beltran MD Work Phone: [facility] 07-20-2021 14:01-0400 Heart rate 64 /min Mariano Beltran MD Work Phone: [facility] 07-20-2021 14:01-0400 Respiratory rate 12 /min Mariano Beltran MD Work Phone: [facility] 07-20-2021 [id number]:01040 Systolic blood pressure 120 mm[Hg] Mariano Beltran MD Work Phone: [facility] Encounters Encounter Date Encounter Type Care Provider Facility Start: 01-31-2023 End: 01-31-2023 ambulatory MARIANO BELTRAN Facility:[facility] Start: 01-25-2023 End: 01-25-2023 ambulatory MARIANO BELTRAN Facility:[facility] Start: 01-25-2023 End: 01-25-2023 Office outpatient visit 40 minutes Mariano Beltran MD Work Phone: [facility] [place] Procedures Date Procedure Procedure Detail Performing Clinician Start: 01-25-2023 [facility] COVI D-19 VACCINE ( SEASON) AGE 12+ YR Mariano Beltran MD Work Phone: Start: 01-25-2023 INFLUENZA VACCINE, P RSV FREE, AGE 65+ YR, HIGH DOSE, QUADRIVALENT (FLUZONE HIGH-DOSE) Mariano Beltran MD Work Phone: Start: 09-21-2022 Lipid 1996 panel - S dominick or Plasma Clayton Ayon MD Work Phone: Start: 09-21-2022 Basic metabolic pane l calcium total Gaensh Jeanette PACHECO Work Phone: Start: 09-21-2022 Lipid panel Liz B Puliafico NETWORK CONTROL OPERATOR - DIALYSIS BIOMED TECHNICIAN Work Phone: Start: 09-20-2022 POCT ACT Clayton soni MD Work Phone: Start: 09-20-2022 POCT ACT Clayton soni MD Work Phone: Start: 09-20-2022 Ecg routine ecg w/le ast 12 lds trcg only w/o i&r Clayton Ayon MD Work Phone: Start: 09-20-2022 Cardiac catheterizat ion study Clayton Ayon MD Work Phone: Start: 09-20-2022 Percutaneous coronar y intervention Clayton Ayon MD Work Phone: Start: 09-20-2022 End: 09-20-2022 POCT ACT Clayton Ayon MD Work Phone: Plan of Treatment Date Care Activity Detail Author Start: 03-02-2031 DTaP/Tdap/Td Vaccine s (2 - Td or Tdap) DTaP/Tdap/Td Vaccines (2 - Td or Tdap) [facility] Start: 03-02-2031 Urine microalbumin profile [facility] Start: 09-22-2027 Lipid panel Lipid Panel [facility] Start: 01-17-2026 Diabetes Screening Diabetes Screenin g [facility] Start: 07-13-2025 DIABETES SCREEN DIABETES SCREEN [facility] Start: 07-13-2025 Diabetes Screening Diabetes Screenin g [facility] Start: 01-13-2025 DIABETES SCREEN DIABETES SCREEN [facility] Start: 07-20-2024 DIABETES SCREEN DIABETES SCREEN [facility] Start: 01-18-2024 Hepatitis B surface antibody level LDL Cholesterol [facility] Start: 01-13-2024 DIABETES SCREEN DIABETES SCREEN [facility] Start: 12-10-2023 Covid-19 Vaccine ( season) Covid-19 Vaccine () [facility] Immunizations Immunization Date Immunization Notes Care Provider Fa cility 01-25-2023 COVID-19 vaccine, ag e 12+ yr, season (PFIZER-BIONTProject Repat) Mariano Beltran MD Work Phone: [facility] Work Phone: 01-25-2023 influenza (HD-IIV4) vaccine, age 65+ yr, high dose, quadrivalent, PF (FLUZONE HIGH-DOSE) Mariano Beltran MD Work Phone: [facility] Work Phone: 01-18-2022 COVID-19 vaccine, ag e 12+ yr, bivalent (MODERNA) Mariano Beltran MD Work Phone: [facility] Work Phone: 12-21-2021 influenza, high dose seasonal, preservative-free Mariano Beltran MD Work Phone: [facility] 12-21-2021 influenza virus vacc ine, unspecified formulation Clayton Ayon MD Work Phone: [facility] 03-02-2021 tetanus toxoid, redu natividad diphtheria toxoid, and acellular pertussis vaccine, adsorbed Mariano Beltran MD Work Phone: [facility] Work Phone: 12-18-2020 influenza, high dose seasonal, preservative-free Mariano Beltran MD Work Phone: [facility] Work Phone: 05-02-2020 COVID-19 vaccine, fu ll dose (MODERNA) Mariano Beltran MD Work Phone: [facility] Work Phone: 04-04-2020 COVID-19 vaccine, fu ll dose (MODERNA) Mariano Beltran MD Work Phone: [facility] Work Phone: 02-21-2020 zoster vaccine recombinant Mariano Beltran MD Work Phone: [facility] Work Phone: 12-04-2019 influenza, high dose seasonal, preservative-free Mariano Beltran MD Work Phone: [facility] Work Phone: 12-04-2019 influenza, injectabl e, quadrivalent, preservative free Mariano Beltran MD Work Phone: [facility] Work Phone: 12-04-2019 zoster vaccine recombinant Mariano Beltran MD Work Phone: [facility] Work Phone: 12-18-2018 influenza, high dose seasonal, preservative-free Mariano Beltran MD Work Phone: [facility] Work Phone: 12-27-2017 influenza, high dose seasonal, preservative-free Mariano Beltran MD Work Phone: [facility] Work Phone: 12-27-2017 Seasonal trivalent influenza vaccine, adjuvanted, preservative free Mariano Beltran MD Work Phone: [facility] Work Phone: 12-28-2016 influenza, high dose seasonal, preservative-free Mariano Beltran MD Work Phone: [facility] 11-25-2015 influenza, high dose seasonal, preservative-free Mariano Beltran MD Work Phone: [facility] 01-08-2015 pneumococcal conjuga te vaccine, 13 valent Mariano Beltran MD Work Phone: [facility] 12-27-2014 influenza, seasonal, injectable Mariano Beltran MD Work Phone: [facility] 01-07-2014 pneumococcal polysaccharide vaccine, 23 valent Mariano Beltran MD Work Phone: [facility] 12-31-2013 influenza, seasonal, injectable Mariano Beltran MD Work Phone: [facility] 12-04-2012 influenza virus vacc ine, unspecified formulation Mariano Beltran MD Work Phone: [facility] Work Phone: 12-14-2011 influenza virus vacc ine, unspecified formulation Mariano Beltran MD Work Phone: [facility] Work Phone: 02-16-2010 zoster vaccine, live Mariano Beltran MD Work Phone: [facility] Work Phone: 01-08-2010 influenza virus vacc ine, whole virus Mariano Beltran MD Work Phone: [facility] Work Phone: 09-18-2009 tetanus and diphther ia toxoids, adsorbed, preservative free, for adult use (2 Lf of tetanus toxoid and 2 Lf of diphtheria toxoid) Mariano Beltran MD Work Phone: [facility] Work Phone: 01-07-2009 influenza virus vacc ine, whole virus Mariano Beltran MD Work Phone: [facility] Work Phone: 02-01-2008 influenza virus vacc ine, whole virus Mariano Beltran MD Work Phone: [facility] Work Phone: 01-24-2007 influenza virus vacc ine, whole virus Mariano Beltran MD Work Phone: [facility] Work Phone: Payers Date Payer Category Payer Medicare A[employer]NA MEDICARE A ETNA MEDICARE PPO [id number] 2020-Present [phone] [address] [place] [address] PPO [id number] 2020 Medicare [id number] 2020 Medicare [id number] Social History Date Type Detail Facility Start: 02-27-2018 End: 01-20-2022 Tobacco smoking status NHIS Never smoked tobacco [facility] Work Phone: Start: 07-20-2021 End: 01-25-2023 Alcohol intake Current non-drinker of alcohol (finding) [facility] Start: 02-27-2018 End: 01-20-2022 Tobacco Comment No smoking in childhood home. [facility] Start: 1935 Sex Assigned At Not on file [facility] Start: 07-10-2021 End: 09-30-2022 Exposure to SARS-CoV-2 (event) Not sure [facility] Work Phone: Start: 02-27-2018 End: 01-20-2022 Tobacco use and exposure Smokeless tobacco non-user [facility] Work Phone: Start: 09-16-2022 End: 09-30-2022 Alcohol intake Lifetime non-drinker (finding) [facility] Start: 07-22-2022 End: 09-16-2022 History of Social function [facility] Start: 07-22-2022 End: 09-16-2022 Tobacco use panel [facility] Within the last year , have you been afraid of your partner or ex-partner? No [facility] Adult Depression Screening Assessment 0 [facility] Work Phone: Medical Equipment Procedure Code Equipment Code Equipment Origin al Text Equipment Identifier Dates Stent Cor Skypoi [id number] - [id number] Start: 09-20-2022 Clinical Notes 08-03-2017 to 01-31-2023 Mariano Beltran MD - 01/25/2023 10:59 AM ESTTelephone Encounter - Ilsa Posada - 01/06/2023 10:12 AM EDTMariano Beltran MD - 12/27/2022 7:20 PM EDTPatient InstructionsAttachments Note Date & Type Note Facility 01-31-2023 Note HNO ID: [id number] Author: Gabriela Thompson RDMS Service: ? Author Type: Load Dispatcher Local Type: Progress Notes Filed: 01/31/2023 9:13 AM Note Text: Radiology Service Progress Note PATIENT NAME: Eben Pardo DATE OF SERVICE: January 31, 2023 TIME: 9:13 AM PATIENT IDENTITY VERIFICATION COMPLETED USING TWO (2) IDENTIFIERS: Name and Date of confirmed by patient verbally. FALL SCREENING: Has the patient had 2 falls in the last year or 1 fall with injury or currently using an Ambulatory Assistive Device (Walker, Cane, Wheelchair, Crutches, etc.)? No PATIENT GENDER DATA: Male PATIENT RELEVANT IMPLANT DATA REVIEWED: Not Applicable RADIOLOGY DEPARTMENT: Ultrasound PERIPHERAL IV DATA: Not applicable SIGNED BY: Gabriela Thompson RDMS January 31, 2023 9:13 AM [facility] 01-25-2023 Note HNO ID: [id number] Author: Mariano Beltran MD Service: ? Author Type: Physician Type: Progress Notes Filed: 01/26/2023 7:45 AM Note Text: This note was created using [email or web address]. Subjective Patient presents with: F/U 6 months Immunizations: Flu vaccination Multiple Concerns Eben Pardo is a 87 year old male here with his . He continued with chronic neck and lower back pain. He had a follow up with Dr. Poe to discuss the MRI of the neck that was done. He wanted me to review his MRI results. His legs felt weak at times, and he wondered if this was from his statin medication. He denied myalgia. He fell last week when he failed to get up from squatting, and bruised his right forearm. We reviewed his lab results. We reconciled his medications as best as we could, as he was mistaking amlodipine from metoprolol, but new he was taking 1/2 of one of these. He mentioned claudication of the left leg, chronic. Apparently he already had a vascular study done by his elevator service mechanic. Review of Systems Constitutional: Negative for activity change, chills, fever and unexpected weight change. HENT: Negative. Eyes: Negative for visual disturbance. Respiratory: Negative for cough, shortness of breath and wheezing. Cardiovascular: Negative for chest pain, palpitations and leg swelling. Gastrointestinal: Negative for abdominal pain, nausea and vomiting. Genitourinary: Negative for difficulty urinating. Musculoskeletal: Positive for back pain and neck pain. Neurological: Negative for dizziness, syncope, speech difficulty, light-headedness, numbness and headaches. 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 omeprazole (PRILOSEC) 20 mg capsule Take 1 capsule by mouth once daily. lidocaine (LIDODERM) 5 % Apply 1 Patch as directed every 24 hours. Remove old patch prior to placing new patch. Location: upper back BRILINTA 90 mg tablet Take 1 tablet by mouth every 12 hours. metoprolol succinate ER (TOPROL XL) 25 mg 24 hr tablet Take 12.5 mg by mouth daily at bedtime. nitroglycerin sublingual (NITROQUICK) 0.4 mg SL tablet dissolve 1 tablet under the tongue every 5 minutes if needed for ... (REFER TO PRESCRIPTION NOTES). aspirin, enteric coated (ASPIRIN, ENTERIC COATED) 81 mg EC tablet Take 81 mg by mouth. atorvastatin (LIPITOR) 80 mg tablet Take 1 tablet by mouth daily at bedtime. For cholesterol. amLODIPine (NORVASC) 2.5 mg tablet Take 1 tablet by mouth once daily. (Patient taking differently: Take 1.25 mg by mouth once daily.) acetaminophen (TYLENOL EXTRA STRENGTH ORAL) Take 1 tablet by mouth as needed. ketoconazole (NIZORAL) 2 % shampoo WASH FACE AND EARS - AND LET SIT FOR 5 MINUTES as directed ALTERN... (REFER TO PRESCRIPTION NOTES). fluticasone 50 mcg/actuation nasal spray Use 2 Sprays in each nostril once daily as needed for Cold/Allergy Symptoms. Rinse mouth after use. VIT C/DL-E AC/LUT/COPPER/ZNOX (PRESERVISION ORAL) Take 1 Each by mouth once daily. Sodium Chloride (OCEAN NASAL) 0.65 % NASAL [facility] No current facility-administered medications for this visit. Objective BP 110/58 (BP Site: Left Arm, BP Position: Sitting, BP Cuff Size: Large Adult) Pulse (!) 42 Wt 70.3 kg (155 lb) SpO2 99% BMI 23.85 kg/m? Physical Exam HENT: Head: Atraumatic. Cardiovascular: Rate and Rhythm: Regular rhythm. Bradycardia present. Heart sounds: No murmur heard. No gallop. Pulmonary: Effort: No respiratory distress. Breath sounds: Examination of the right-lower field reveals rales. Examination of the left-lower field reveals rales. Rales present. No wheezing. Abdominal: General: There is no distension. Palpations: Abdomen is soft. There is no mass. Tenderness: There is no abdominal tenderness. Musculoskeletal: General: No tenderness. Right forearm: No swelling or tenderness. Cervical back: No tenderness. Right lower leg: No edema. Comments: Right posteromedial forearm with ecchymosis, and dressed abrasion. Neurological: General: No focal deficit present. Mental Status: He is alert. Mental status is at baseline. Motor: No weakness. Comments: Gait unsteady at times. Get up and go normal. MRI results reviewed in general. Further discussion per Dr. Poe, the ordering provider. Component Latest Ref Rng AND Units 01/17/2023 Protein, Total 6.3 - 8.0 g/dL 6.1 (L) Albumin 3.9 - 4.9 g/dL 3.7 ( (more content not included)... [facility] 01-25-2023 History of Presen t illness Narrative This note was created using [email or web address]. Subjective Patient presents with: F/U 6 months Immunizations: Flu vaccination Multiple Concerns Eben Pardo is a 87 year old male here with his . He continued with chronic neck and lower back pain. He had a follow up with Dr. Poe to discuss the MRI of the neck that was done. He wanted me to review his MRI results. His legs felt weak at times, and he wondered if this was from his statin medication. He denied myalgia. He fell last week when he failed to get up from squatting, and bruised his right forearm. We reviewed his lab results. We reconciled his medications as best as we could, as he was mistaking amlodipine from metoprolol, but new he was taking 1/2 of one of these. He mentioned claudication of the left leg, chronic. Apparently he already had a vascular study done by his elevator service mechanic. Review of Systems Constitutional: Negative for activity change, chills, fever and unexpected weight change. HENT: Negative. Eyes: Negative for visual disturbance. Respiratory: Negative for cough, shortness of breath and wheezing. Cardiovascular: Negative for chest pain, palpitations and leg swelling. Gastrointestinal: Negative for abdominal pain, nausea and vomiting. Genitourinary: Negative for difficulty urinating. Musculoskeletal: Positive for back pain and neck pain. Neurological: Negative for dizziness, syncope, speech difficulty, light-headedness, numbness and headaches. 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 omeprazole (PRILOSEC) 20 mg capsule Take 1 capsule by mouth once daily. lidocaine (LIDODERM) 5 % Apply 1 Patch as directed every 24 hours. Remove old patch prior to placing new patch. Location: upper back BRILINTA 90 mg tablet Take 1 tablet by mouth every 12 hours. metoprolol succinate ER (TOPROL XL) 25 mg 24 hr tablet Take 12.5 mg by mouth daily at bedtime. nitroglycerin sublingual (NITROQUICK) 0.4 mg SL tablet dissolve 1 tablet under the tongue every 5 minutes if needed for ... (REFER TO PRESCRIPTION NOTES). aspirin, enteric coated (ASPIRIN, ENTERIC COATED) 81 mg EC tablet Take 81 mg by mouth. atorvastatin (LIPITOR) 80 mg tablet Take 1 tablet by mouth daily at bedtime. For cholesterol. amLODIPine (NORVASC) 2.5 mg tablet Take 1 tablet by mouth once daily. (Patient taking differently: Take 1.25 mg by mouth once daily.) acetaminophen (TYLENOL EXTRA STRENGTH ORAL) Take 1 tablet by mouth as needed. ketoconazole (NIZORAL) 2 % shampoo WASH FACE AND EARS - AND LET SIT FOR 5 MINUTES as directed ALTERN... (REFER TO PRESCRIPTION NOTES). fluticasone 50 mcg/actuation nasal spray Use 2 Sprays in each nostril once daily as needed for Cold/Allergy Symptoms. Rinse mouth after use. VIT C/DL-E AC/LUT/COPPER/ZNOX (PRESERVISION ORAL) Take 1 Each by mouth once daily. Sodium Chloride (OCEAN NASAL) 0.65 % NASAL [facility] No current facility-administered medications for this visit. Objective BP 110/58 (BP Site: Left Arm, BP Position: Sitting, BP Cuff Size: Large Adult) Pulse (!) 42 Wt 70.3 kg (155 lb) SpO2 99% BMI 23.85 kg/m Physical Exam HENT: Head: Atraumatic. Cardiovascular: Rate and Rhythm: Regular rhythm. Bradycardia present. Heart sounds: No murmur heard. No gallop. Pulmonary: Effort: No respiratory distress. Breath sounds: Examination of the right-lower field reveals rales. Examination of the left-lower field reveals rales. Rales present. No wheezing. Abdominal: General: There is no distension. Palpations: Abdomen is soft. There is no mass. Tenderness: There is no abdominal tenderness. Musculoskeletal: General: No tenderness. Right forearm: No swelling or tenderness. Cervical back: No tenderness. Right lower leg: No edema. Comments: Right posteromedial forearm with ecchymosis, and dressed abrasion. Neurological: General: No focal deficit present. Mental Status: He is alert. Mental status is at baseline. Motor: No weakness. Comments: Gait unsteady at times. Get up and go normal. MRI results reviewed in general. Further discussion per Dr. Poe, the ordering provider. Component Latest Ref Rng & Units 01/17/2023 Protein, Total 6.3 - 8.0 g/dL 6.1 (L) Albumin 3.9 - 4.9 g/dL 3.7 (L) Calcium 8.5 - 10.2 mg/dL 9.6 Bilirubin, Total 0.2 - 1.3 mg/dL 0.4 Alkaline Phosphatase 38 - 113 U/L 208 (H) AST 14 - 40 U/L 35 ALT 10 - 54 U/L 32 Glucose 74 - 99 mg/dL 70 (L) BUN 9 - 24 mg/dL 18 Creatinine 0.73 - 1.22 mg/dL 1.08 Sodium 136 - 144 mmol/L 141 Potassium 3.7 - 5.1 mmol/L 4.8 Chloride 97 - 105 mmol/L 105 CO2 22 - 30 mmol/L 25 Anion Gap 9 - 18 mmol/L 11 eGFR >=60 mL/min/1.73m 67 Cholesterol, Total <200 mg/dL 78 Triglyceride <150 mg/dL 148 HDL Cholesterol >39 mg/dL 22 (L) Non HDL Cholesterol <130 mg/dL 56 Fasting Time hrs 13 VLDL Cholesterol <30 mg/dL 30 (H) TC:HDL Ratio <5.10 3.55 LDL Cholesterol <100 mg/dL 26 LDL:HDL Ratio <2.54 1.18 Assessment and Plan 1. Claudication of left lower extremity (HCC) - ICD9: 443.9, ICD10: I73.9 (primary diagnosis) Request vascular study. Discuss this also at orthopedic appointment as this may be related to his low back. 2. Essential hypertension - ICD9: 401.9, ICD10: I10 - Controlled - Medications reconciled. - AMLODIPINE 2.5 MG TABLET 3. Atherosclerosis of [place] coronary artery of [place] heart without angina pectoris - ICD9: 414.01, ICD10: I25.10 Stable. 4. Hyperlipidemia, unspecified hyperlipidemia type - ICD9: 272.4, ICD10: E78.5 - Controlled - Continue current medications 5. Hypoalbuminemia - ICD9: 273.8, ICD10: E88.09 Increase protein intake. - HEPATIC FUNCTION PNL 6. Alkaline phosphatase elevation - ICD9: 790.5, ICD10: R74.8 Discussed possible etiologies. Repeat labs in a few weeks. - US ABD RIGHT UPPER QUADRANT - HEPATIC FUNCTION PNL 7. Need for influenza vaccination - ICD9: V04.81, ICD10: Z23 - INFLUENZA VACCINE, PRSV FREE, AGE 65+ YR, HIGH DOSE, QUADRIVALENT (FLUZONE HIGH-DOSE) 8. Need for COVID-19 vaccine - ICD9: V04.89, ICD10: Z23 - [employer] COVID-19 VACCINE ( SEASON) AGE 12+ YR 9. Contusion of right forearm, initial encounter - ICD9: 923.10, ICD10: S50.11XA Warm compress. 10. Cervical pain - ICD9: 723.1, ICD10: M54.[address] Poe. Mariano Beltran MD documented in this encounter [facility] 01-06-2023 Miscellaneous Notes Pharmacy verified in [facility] Patient has been identified by name and date of : Yes Patient aware RX will be sent to pharmacy. No need to notify patient. Patient phones for refill(s): Requested Prescriptions Pending Prescriptions Disp Refills finasteride (PROSCAR) 5 mg tablet 90 tablet 3 Sig: Take 1 tablet by mouth once daily. Date of last office visit : 12/27/2022 Date of next office visit : 01/25/2023 Last 2 Encounter Wt Readings: Date: Wt: 12/27/2022 71.3 kg (157 lb 1.6 oz) 12/09/2022 70.8 kg (156 lb) Not applicable Please advise. Ilsa Francis documented in this encounter [facility] 12-27-2022 Note HNO ID: [id number] Author: Mariano Beltran MD Service: ? Author Type: Physician Type: Progress Notes Filed: 12/29/2022 8:47 AM Note Text: This note was created using [employer]. Subjective Eben Pardo is a 87 year old male here with his . He finished prednisone and was better. He was wondering about a refill of prednisone. He only used a few tramadol since he was better. He had symptoms that concerned me for GCA. I referred him to Dr. Osorio for TA biopsy but Dr. Osorio felt this was more risk than benefit due to ongoing therapy with Brillinta. I referred him to Dr. Bailey who found no vision abnormalities or signs of vascular inflammation. He saw Dr. Poe and there were plans to do an MRI of his cervical spine. Other concerns: vaccines, and change of pharmacies this coming new year. Review of Systems Constitutional: Positive for diaphoresis. Negative for appetite change, chills and fever. Infrequent. HENT: Negative for trouble swallowing. Eyes: Negative for visual disturbance. Respiratory: Negative for shortness of breath. Genitourinary: Positive for frequency. Negative for difficulty urinating and dysuria. Musculoskeletal: Negative for myalgias, neck pain and neck stiffness. Neurological: Negative for headaches. 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 predniSONE (DELTASONE) 20 mg tablet Take 2 tablets by mouth once daily. lidocaine (LIDODERM) 5 % Apply 1 Patch as directed every 24 hours. Remove old patch prior to placing new patch. Location: upper back BRILINTA 90 mg tablet Take 1 tablet by mouth every 12 hours. metoprolol succinate ER (TOPROL XL) 25 mg 24 hr tablet Take 12.5 mg by mouth daily at bedtime. nitroglycerin sublingual (NITROQUICK) 0.4 mg SL tablet dissolve 1 tablet under the tongue every 5 minutes if needed for ... (REFER TO PRESCRIPTION NOTES). aspirin, enteric coated (ASPIRIN, ENTERIC COATED) 81 mg EC tablet Take 81 mg by mouth. atorvastatin (LIPITOR) 80 mg tablet Take 1 tablet by mouth daily at bedtime. For cholesterol. amLODIPine (NORVASC) 2.5 mg tablet Take 1 tablet by mouth once daily. finasteride (PROSCAR) 5 mg tablet Take 1 tablet by mouth once daily. acetaminophen (TYLENOL EXTRA STRENGTH ORAL) Take 1 tablet by mouth as needed. ketoconazole (NIZORAL) 2 % shampoo WASH FACE AND EARS - AND LET SIT FOR 5 MINUTES as directed ALTERN... (REFER TO PRESCRIPTION NOTES). fluticasone 50 mcg/actuation nasal spray Use 2 Sprays in each nostril once daily as needed for Cold/Allergy Symptoms. Rinse mouth after use. VIT C/DL-E AC/LUT/COPPER/ZNOX (PRESERVISION ORAL) Take 1 Each by mouth once daily. Sodium Chloride (OCEAN NASAL) 0.65 % NASAL [facility] No current facility-administered medications for this visit. Objective BP 120/56 Pulse (!) 53 Temp 36.3 ?C (97.3 ?F) (Temporal) Resp 16 Wt 71.3 kg (157 lb 1.6 oz) SpO2 99% BMI 24.17 kg/m? Physical Exam Constitutional: General: He is not in acute distress. Appearance: He is not ill-appearing. Neurological: Mental Status: He is alert. Gait: Gait normal. Psychiatric: Speech: Speech normal. Assessment and Plan 1. Cervical pain - ICD9: 723.1, ICD10: M54.2 (primary diagnosis) Controlled. 2. Nonintractable paroxysmal hemicrania, unspecified chronicity pattern - ICD9: 339.03, ICD10: G44.039 Resolved. 3. Vision disturbance - ICD9: 368.9, ICD10: H53.9 Resolved. 4. Urinary frequency - ICD9: 788.41, ICD10: R35.0 acute - Shared medical decision making was done. He was unable to provide urine specimen. This may be improving and he will call if issue persists. Mariano Beltran MD [facility] 12-27-2022 History of Presen t illness Narrative This note was created using [employer]. Subjective Eben Pardo is a 87 year old male here with his . He finished prednisone and was better. He was wondering about a refill of prednisone. He only used a few tramadol since he was better. He had symptoms that concerned me for GCA. I referred him to Dr. Osorio for TA biopsy but Dr. Osorio felt this was more risk than benefit due to ongoing therapy with Brillinta. I referred him to Dr. Bailey who found no vision abnormalities or signs of vascular inflammation. He saw Dr. Poe and there were plans to do an MRI of his cervical spine. Other concerns: vaccines, and change of pharmacies this coming new year. Review of Systems Constitutional: Positive for diaphoresis. Negative for appetite change, chills and fever. Infrequent. HENT: Negative for trouble swallowing. Eyes: Negative for visual disturbance. Respiratory: Negative for shortness of breath. Genitourinary: Positive for frequency. Negative for difficulty urinating and dysuria. Musculoskeletal: Negative for myalgias, neck pain and neck stiffness. Neurological: Negative for headaches. 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 predniSONE (DELTASONE) 20 mg tablet Take 2 tablets by mouth once daily. lidocaine (LIDODERM) 5 % Apply 1 Patch as directed every 24 hours. Remove old patch prior to placing new patch. Location: upper back BRILINTA 90 mg tablet Take 1 tablet by mouth every 12 hours. metoprolol succinate ER (TOPROL XL) 25 mg 24 hr tablet Take 12.5 mg by mouth daily at bedtime. nitroglycerin sublingual (NITROQUICK) 0.4 mg SL tablet dissolve 1 tablet under the tongue every 5 minutes if needed for ... (REFER TO PRESCRIPTION NOTES). aspirin, enteric coated (ASPIRIN, ENTERIC COATED) 81 mg EC tablet Take 81 mg by mouth. atorvastatin (LIPITOR) 80 mg tablet Take 1 tablet by mouth daily at bedtime. For cholesterol. amLODIPine (NORVASC) 2.5 mg tablet Take 1 tablet by mouth once daily. finasteride (PROSCAR) 5 mg tablet Take 1 tablet by mouth once daily. acetaminophen (TYLENOL EXTRA STRENGTH ORAL) Take 1 tablet by mouth as needed. ketoconazole (NIZORAL) 2 % shampoo WASH FACE AND EARS - AND LET SIT FOR 5 MINUTES as directed ALTERN... (REFER TO PRESCRIPTION NOTES). fluticasone 50 mcg/actuation nasal spray Use 2 Sprays in each nostril once daily as needed for Cold/Allergy Symptoms. Rinse mouth after use. VIT C/DL-E AC/LUT/COPPER/ZNOX (PRESERVISION ORAL) Take 1 Each by mouth once daily. Sodium Chloride (OCEAN NASAL) 0.65 % NASAL [facility] No current facility-administered medications for this visit. Objective BP 120/56 Pulse (!) 53 Temp 36.3 C (97.3 F) (Temporal) Resp 16 Wt 71.3 kg (157 lb 1.6 oz) SpO2 99% BMI 24.17 kg/m Physical Exam Constitutional: General: He is not in acute distress. Appearance: He is not ill-appearing. Neurological: Mental Status: He is alert. Gait: Gait normal. Psychiatric: Speech: Speech normal. Assessment and Plan 1. Cervical pain - ICD9: 723.1, ICD10: M54.2 (primary diagnosis) Controlled. 2. Nonintractable paroxysmal hemicrania, unspecified chronicity pattern - ICD9: 339.03, ICD10: G44.039 Resolved. 3. Vision disturbance - ICD9: 368.9, ICD10: H53.9 Resolved. 4. Urinary frequency - ICD9: 788.41, ICD10: R35.0 acute - Shared medical decision making was done. He was unable to provide urine specimen. This may be improving and he will call if issue persists. Mariano Beltran MD documented in this encounter [facility] 12-22-2022 Miscellaneous Notes Ashlyn at [facility] calling as pt's just called to set up their appt. She states they have not received the consult request and Ashlyn needs more information. Given dx codes on order sheet as well as info Dr. Beltran has in this encounter. Ashlyn said she will show it to Dr. Bailey to confirm this is something he would see the patient for. She requested office notes as well. Referral order, last OV note and this encounter note all faxed to [phone]. Pts called and is notified of providers message and instructions. She voices understanding. Sent consult orders to Dr. Lester Bailey at fax # [phone]. Told them they needed to get an appointment [facility]. Scheduled Pt 12/27/[address] Miranda. Patient has been identified by name and date of : Yes, Provider Dr Miranda Date 12/22/22 Time 1605. Spouse phones for refill(s): Requested Prescriptions Pending Prescriptions Disp Refills omeprazole (PRILOSEC) 20 mg capsule 90 capsule 3 Sig: Take 1 capsule by mouth once daily. Date of last office visit in primary care:12/09/2022 Date of next office visit in primary care: 12/27/2022 Last 2 Encounter Wt Readings: Date: Wt: 12/09/2022 70.8 kg (156 lb) 12/08/2022 70.8 kg (156 lb) Previous labs/tests for medication: Blood Pressure: BUN (mg/dL) Date Value 07/13/2022 19 01/12/2021 21 Sodium (mmol/L) Date Value 07/13/2022 141 01/12/2021 140 Last 1 Encounter BP Readings: Date: BP: 12/09/2022 126/62 Liver Function: ALT (U/L) Date Value 01/13/2022 12 01/12/2021 16 AST (U/L) Date Value 01/13/2022 22 01/12/2021 18 Please advise. Thank you. Alida Piña RN. ASSESSMENT/PLAN: 1. Nonintractable paroxysmal hemicrania, unspecified chronicity pattern - ICD9: 339.03, ICD10: G44.039 (primary diagnosis) - CONSULT TO OPHTHALMOLOGY 2. Vision disturbance - ICD9: 368.9, ICD10: H53.9 - CONSULT TO OPHTHALMOLOGY 1) Dr. Osorio declined to do TA biopsy due to risk of bleeding on Brilinta. 2) I recommend surrogate evaluation for vascular inflammation. Next is to look at blood vessels in the retina. This will help decide on the course of prednisone. 3) Consult Dr. Lynn MCCURDY for vision disturbance, rule out vasculitis. 4) I tried to call patient. Message left to call back. Mariano Beltran MD Dr. Osorio called to speak with PCP regarding patient. Asking for PCP to call him back at [phone] as soon as possible. documented in this encounter [facility] 12-10-2022 Miscellaneous Notes Patient's request for medication is as follows Requested Prescriptions Signed Prescriptions Disp Refills traMADol (ULTRAM) 50 mg tablet 28 tablet 0 Sig: Take 1 tablet by mouth every 6 hours as needed for pain for up to 7 days. Authorizing Provider: MARIANO BELTRAN Order entered - please phone pharmacy and notify patient. Mariano Beltran MD Patient's calls in stating patient has been taking tramadol as directed and is improving but they are running out of medication. Patient has been identified by name and date of : Yes, Provider Ruby Date 12/10/22 Time 9:52am Patient phones for refill(s): Requested Prescriptions Pending Prescriptions Disp Refills traMADol (ULTRAM) 50 mg tablet Sig: Take 1 tablet by mouth every 6 hours as needed for pain. Date of last office visit in primary care: 12/09/22 Last 2 Encounter Wt Readings: Date: Wt: 12/09/2022 70.8 kg (156 lb) 12/08/2022 70.8 kg (156 lb) Please advise. Thank you. Mireya Page LPN documented in this encounter [facility] 12-09-2022 Note HNO ID: [id number] Author: Mariano Beltran MD Service: ? Author Type: Physician Type: Progress Notes Filed: 12/09/2022 3:55 PM Note Text: This note was created using [employer]. Subjective Eben Pardo is a 87 year old male here with his . He saw our DRYING SUPERVISOR for ER follow up for neck upper back and shoulder pains, left more than right, sharp, 8/10 severity. He was prescribed tramadol, cyclobenzaprine, and lidoderm with little relief. Symptoms started one week ago, possibly after he missed a step coming down the stairs, and landed on his knees. He denied head or other injury. He was seen in the ED as detailed in DRYING SUPERVISOR note yesterday. He had an appointment with Dr. Poe next Tuesday. Review of Systems Constitutional: Negative for chills and fever. HENT: Positive for trouble swallowing. ?jaw claudication. Eyes: Negative for pain and visual disturbance. Respiratory: Negative for shortness of breath. Neurological: Positive for headaches. Negative for dizziness, speech difficulty, weakness and numbness. 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 Substance Use Topics Alcohol use: No Drug use: No Current Outpatient Medications Medication Sig lidocaine (LIDODERM) 5 % Apply 1 Patch as directed every 24 hours. Remove old patch prior to placing new patch. Location: upper back cyclobenzaprine (FLEXERIL) 5 mg tablet Take 1 tablet by mouth twice daily as needed for muscle spasm. traMADol (ULTRAM) 50 mg tablet Take 1 tablet by mouth twice daily as needed for pain for up to 7 days. BRILINTA 90 mg tablet Take 1 tablet by mouth every 12 hours. metoprolol succinate ER (TOPROL XL) 25 mg 24 hr tablet Take 12.5 mg by mouth daily at bedtime. nitroglycerin sublingual (NITROQUICK) 0.4 mg SL tablet dissolve 1 tablet under the tongue every 5 minutes if needed for ... (REFER TO PRESCRIPTION NOTES). aspirin, enteric coated (ASPIRIN, ENTERIC COATED) 81 mg EC tablet Take 81 mg by mouth. atorvastatin (LIPITOR) 80 mg tablet Take 1 tablet by mouth daily at bedtime. For cholesterol. amLODIPine (NORVASC) 2.5 mg tablet Take 1 tablet by mouth once daily. finasteride (PROSCAR) 5 mg tablet Take 1 tablet by mouth once daily. omeprazole (PRILOSEC) 20 mg capsule Take 1 capsule by mouth once daily. acetaminophen (TYLENOL EXTRA STRENGTH ORAL) Take 1 tablet by mouth as needed. ketoconazole (NIZORAL) 2 % shampoo WASH FACE AND EARS - AND LET SIT FOR 5 MINUTES as directed ALTERN... (REFER TO PRESCRIPTION NOTES). fluticasone 50 mcg/actuation nasal spray Use 2 Sprays in each nostril once daily as needed for Cold/Allergy Symptoms. Rinse mouth after use. VIT C/DL-E AC/LUT/COPPER/ZNOX (PRESERVISION ORAL) Take 1 Each by mouth once daily. Sodium Chloride (OCEAN NASAL) 0.65 % NASAL [facility] No current facility-administered medications for this visit. Objective BP 126/62 (BP Site: Left Arm, BP Position: Sitting, BP Cuff Size: Large Adult) Pulse 60 Temp 36.1 ?C (97 ?F) (Temporal) Resp 12 Wt 70.8 kg (156 lb) BMI 24.00 kg/m? Physical Exam Constitutional: General: He is not in acute distress. Appearance: He is not ill-appearing or diaphoretic. HENT: Head: Normocephalic and atraumatic. Comments: Hyperesthesia of the right temporal scalp. No tender cords or arteries. Right Ear: External ear normal. Left Ear: External ear normal. Eyes: Extraocular Movements: Extraocular movements intact. Cardiovascular: Rate and Rhythm: Normal rate and regular rhythm. Pulmonary: Effort: Pulmonary effort is normal. Chest: Chest wall: No tenderness. Musculoskeletal: Cervical back: Tenderness present. No swelling, deformity, bony tenderness or crepitus. Pain with movement present. Decreased range of motion. Thoracic back: Tenderness present. No deformity, spasms or bony tenderness. Lumbar back: No tenderness. Negative right straight leg raise test and negative left straight leg raise test. Right knee: No tenderness. Left knee: No tenderness. Neurological: Mental Status: He is alert. Sensory: No sensory deficit. Motor: No weakness. Gait: Gait normal. Assessment and Plan 1. Nonintractable paroxysmal hemicrania, unspecified chronicity pattern - ICD9: 339.03, ICD10: G44.039 (primary diagnosis) Rule out GCA. Further recommendation will be made if tests are significantly abnormal. 2. Cervical pain - ICD9: 723.1, IC (more content not included)... [facility] 12-08-2022 Note HNO ID: [id number] Author: Nathan Peck APRN.DIALYSIS BIOMED TECHNICIAN Service: ? Author Type: Nurse Practitioner Type: Progress Notes Filed: 12/08/2022 2:20 PM Note Text: SUBJECTIVE Eben Pardo is a 87 year old male here today for a check up on his medical problems. Chief Complaint Patient presents with: Consult: for spine center for back pain. CT scan completed at [facility] on 12/06/22 HPI Eben Pardo is a 87 year old male established patient. Presents today for ER follow up from [facility]. Seen in the ER 12/06/2022. He had gone to ER due to concerns of possible chest/upper abdomen pain and back pain. He has a history of recent coronary stenting x3. His pain today is mostly to his neck and in to both shoulders. Onset with this pain was just over a week ago. Currently in PT for his back pain, chronic low back pain. Sometimes PT bothers this. No arm weakness, numbness or tingling. ER cardiac work up was negative for this ED visit. He had a chest, abdomen and pelvis CTA done which did note a lung nodule to the right lobe with 12 month follow up recommended. His greatest concerns today are his pain. Has been taking Tylenol with limited improvement. Applies heat at times, no help. Tried mobic in the past. Issues with GI upset. His medications were reviewed today and his list is now up to date. Medications Current Outpatient Medications Medication Sig BRILINTA 90 mg tablet Take 1 tablet by mouth every 12 hours. metoprolol succinate ER (TOPROL XL) 25 mg 24 hr tablet Take 12.5 mg by mouth daily at bedtime. nitroglycerin sublingual (NITROQUICK) 0.4 mg SL tablet dissolve 1 tablet under the tongue every 5 minutes if needed for ... (REFER TO PRESCRIPTION NOTES). aspirin, enteric coated (ASPIRIN, ENTERIC COATED) 81 mg EC tablet Take 81 mg by mouth. atorvastatin (LIPITOR) 80 mg tablet Take 1 tablet by mouth daily at bedtime. For cholesterol. amLODIPine (NORVASC) 2.5 mg tablet Take 1 tablet by mouth once daily. finasteride (PROSCAR) 5 mg tablet Take 1 tablet by mouth once daily. omeprazole (PRILOSEC) 20 mg capsule Take 1 capsule by mouth once daily. acetaminophen (TYLENOL EXTRA STRENGTH ORAL) Take 1 tablet by mouth as needed. ketoconazole (NIZORAL) 2 % shampoo WASH FACE AND EARS - AND LET SIT FOR 5 MINUTES as directed ALTERN... (REFER TO PRESCRIPTION NOTES). fluticasone 50 mcg/actuation nasal spray Use 2 Sprays in each nostril once daily as needed for Cold/Allergy Symptoms. Rinse mouth after use. VIT C/DL-E AC/LUT/COPPER/ZNOX (PRESERVISION ORAL) Take 1 Each by mouth once daily. Sodium Chloride (OCEAN NASAL) 0.65 % NASAL [facility] lidocaine (LIDODERM) 5 % Apply 1 Patch as directed every 24 hours. Remove old patch prior to placing new patch. Location: upper back cyclobenzaprine (FLEXERIL) 5 mg tablet Take 1 tablet by mouth twice daily as needed for muscle spasm. traMADol (ULTRAM) 50 mg tablet Take 1 tablet by mouth twice daily as needed for pain for up to 7 days. No current facility-administered medications for this visit. ALLERGIES Allergen Reactions Gabapentin Shortness of Breath, Other: See Comments dizziness Mobic [Meloxicam] GI Upset Sulfa (Sulfonamide * unkown ACTIVE PROBLEM LIST Atherosclerosis of Coronary Artery - 09/14/2022 Nonrheumatic Aortic Valve Stenosis - 08/13/2022 Impaired Fasting Blood Sugar - 01/19/2021 Essential Hypertension - 10/08/2019 Abnormal Lung Sounds - 12/14/2018 Gerd (Gastroesophageal Reflux Disease) - 07/09/2014 Ddd (Degenerative Disc Disease), Lumbar - 04/01/2014 Hearing Loss of Both Ears - 01/07/2014 Hyperlipidemia - 01/07/2014 Allergic Rhinitis - 09/18/2009 Comment: sang Vang. Actinic Keratosis (Premalignant AK) - 09/11/2009 Comment: Dr. Jayjay Kim. Gout, Unspecified - 09/03/2008 Bph With Obstruction/Lower Urinary Tract Symptoms - 10/19/2007 Sleep Apnea, Obstructive - 07/19/2007 Comment: Can't stand CPAP. I'm not using it anymore. Social History Tobacco Use Smoking status: Never Smokeless tobacco: Never Tobacco comments: No smoking in childhood home. Substance Use Topics Alcohol use: No Drug use: No Review of Systems Respiratory: Negative. Cardiovascular: Negative. Musculoskeletal: Positive for arthralgias and back pain. OBJECTIVE BP 132/50 Pulse 69 Wt 156 lb (70.8kg) SpO2 98% Physical Exam Vitals and nursing note reviewed. Constitutional: General: He is awake. He is not in acute distress. Appearance: Normal appearance. He is well-developed and well-groomed. He is not ill-appearing, toxic-appearing or diaphoretic. HENT: Head: Normocephalic. Right Ear: External ear normal. Left Ear: External ear normal. Nose: Nose normal. Eyes: General: Vision grossly intact. Conjunctiva/sclera: Conjunctivae normal. Pupils: Pupils are equal, round, and reactive to light. Neck: Vascular: No JVD. Trachea: Trachea normal. Cardiovascular: Pulses: Normal pulses. Pulmonary: Effort: Pulm (more content not included)... [facility] 10-21-2022 Note HNO ID: [id number] Author: Mariano Beltran MD Service: ? Author Type: Physician Type: Progress Notes Filed: 10/21/2022 10:49 AM Note Text: This note was created using [employer]. Subjective Eben Pardo is a 86 year old male. He had heart catheterization showing multivessel coronary artery disease. He was referred to Dr. Garcia in [facility] in [place] where he underwent multivessel PCI. [facility] was [facility] as well as cardiac rehab. We clarified his medication list, especially his statin dose. Review of Systems Constitutional: Negative for activity change and fever. Respiratory: Negative for cough and shortness of breath. Cardiovascular: Negative for chest pain, palpitations and leg swelling. Gastrointestinal: Negative for abdominal pain. Genitourinary: Negative for difficulty urinating. Neurological: Negative for dizziness. ACTIVE PROBLEM LIST Bph With Obstruction/Lower Urinary Tract Symptoms Gout, Unspecified Actinic Keratosis (Premalignant AK) Allergic Rhinitis Hearing Loss of Both Ears Hyperlipidemia Ddd (Degenerative Disc Disease), Lumbar Gerd (Gastroesophageal Reflux Disease) Sleep Apnea, Obstructive Abnormal Lung Sounds Essential Hypertension Impaired Fasting Blood Sugar Nonrheumatic Aortic Valve Stenosis Atherosclerosis of Coronary Artery Current Outpatient Medications Medication Sig BRILINTA 90 mg tablet Take 1 tablet by mouth every 12 hours. metoprolol succinate ER (TOPROL XL) 25 mg 24 hr tablet Take 12.5 mg by mouth daily at bedtime. nitroglycerin sublingual (NITROQUICK) 0.4 mg SL tablet dissolve 1 tablet under the tongue every 5 minutes if needed for ... (REFER TO PRESCRIPTION NOTES). aspirin, enteric coated (ASPIRIN, ENTERIC COATED) 81 mg EC tablet Take 81 mg by mouth. amLODIPine (NORVASC) 2.5 mg tablet Take 1 tablet by mouth once daily. finasteride (PROSCAR) 5 mg tablet Take 1 tablet by mouth once daily. omeprazole (PRILOSEC) 20 mg capsule Take 1 capsule by mouth once daily. acetaminophen (TYLENOL EXTRA STRENGTH ORAL) Take 1 tablet by mouth as needed. ketoconazole (NIZORAL) 2 % shampoo WASH FACE AND EARS - AND LET SIT FOR 5 MINUTES as directed ALTERN... (REFER TO PRESCRIPTION NOTES). fluticasone 50 mcg/actuation nasal spray Use 2 Sprays in each nostril once daily as needed for Cold/Allergy Symptoms. Rinse mouth after use. VIT C/DL-E AC/LUT/COPPER/ZNOX (PRESERVISION ORAL) Take 1 Each by mouth once daily. Sodium Chloride (OCEAN NASAL) 0.65 % NASAL [facility] atorvastatin (LIPITOR) 80 mg tablet Take 1 tablet by mouth daily at bedtime. For cholesterol. No current facility-administered medications for this visit. Objective BP 112/62 (BP Site: Left Arm, BP Position: Sitting, BP Cuff Size: Large Adult) Pulse (!) 56 Resp 12 Wt 74.4 kg (164 lb) BMI 25.23 kg/m? Physical Exam Constitutional: General: He is not in acute distress. Appearance: He is not ill-appearing. Eyes: General: No scleral icterus. Conjunctiva/sclera: Conjunctivae normal. Cardiovascular: Rate and Rhythm: Bradycardia present. Heart sounds: S1 normal and S2 normal. Murmur heard. Systolic murmur is present with a grade of 1/6. Pulmonary: Effort: No respiratory distress. Breath sounds: Rales present. Musculoskeletal: Right lower leg: No edema. Left lower leg: No edema. Neurological: Mental Status: He is alert. Gait: Gait normal. Assessment and Plan 1. Atherosclerosis of [place] coronary artery of [place] heart without angina pectoris - ICD9: 414.01, ICD10: I25.10 (primary diagnosis) See HPI. 2. Essential hypertension - ICD9: 401.9, ICD10: I10 - Controlled 3. Hyperlipidemia, unspecified hyperlipidemia type - ICD9: 272.4, ICD10: E78.5 - Controlled - Continue current medications - See printed instructions or information. 4. Stented coronary artery - ICD9: V45.82, ICD10: Z95.5 DAPT x 6 months or more. Aspirin indefinitely. Mariano Beltran MD [facility] 10-21-2022 Instructions Mariano Beltran MD - 10/21/2022 10:36 AM EDT Your ATORVASTATIN dose is 80 mg for cholesterol lowering. documented in this encounter [facility] 10-21-2022 History of Presen t illness Narrative This note was created using [email or web address]. Subjective Eben Pardo is a 86 year old male. He had heart catheterization showing multivessel coronary artery disease. He was referred to Dr. Garcia in [facility] in [place] where he underwent multivessel PCI. He was scheduled [facility] as well as cardiac rehab. We clarified his medication list, especially his statin dose. Review of Systems Constitutional: Negative for activity change and fever. Respiratory: Negative for cough and shortness of breath. Cardiovascular: Negative for chest pain, palpitations and leg swelling. Gastrointestinal: Negative for abdominal pain. Genitourinary: Negative for difficulty urinating. Neurological: Negative for dizziness. ACTIVE PROBLEM LIST Bph With Obstruction/Lower Urinary Tract Symptoms Gout, Unspecified Actinic Keratosis (Premalignant AK) Allergic Rhinitis Hearing Loss of Both Ears Hyperlipidemia Ddd (Degenerative Disc Disease), Lumbar Gerd (Gastroesophageal Reflux Disease) Sleep Apnea, Obstructive Abnormal Lung Sounds Essential Hypertension Impaired Fasting Blood Sugar Nonrheumatic Aortic Valve Stenosis Atherosclerosis of Coronary Artery Current Outpatient Medications Medication Sig BRILINTA 90 mg tablet Take 1 tablet by mouth every 12 hours. metoprolol succinate ER (TOPROL XL) 25 mg 24 hr tablet Take 12.5 mg by mouth daily at bedtime. nitroglycerin sublingual (NITROQUICK) 0.4 mg SL tablet dissolve 1 tablet under the tongue every 5 minutes if needed for ... (REFER TO PRESCRIPTION NOTES). aspirin, enteric coated (ASPIRIN, ENTERIC COATED) 81 mg EC tablet Take 81 mg by mouth. amLODIPine (NORVASC) 2.5 mg tablet Take 1 tablet by mouth once daily. finasteride (PROSCAR) 5 mg tablet Take 1 tablet by mouth once daily. omeprazole (PRILOSEC) 20 mg capsule Take 1 capsule by mouth once daily. acetaminophen (TYLENOL EXTRA STRENGTH ORAL) Take 1 tablet by mouth as needed. ketoconazole (NIZORAL) 2 % shampoo WASH FACE AND EARS - AND LET SIT FOR 5 MINUTES as directed ALTERN... (REFER TO PRESCRIPTION NOTES). fluticasone 50 mcg/actuation nasal spray Use 2 Sprays in each nostril once daily as needed for Cold/Allergy Symptoms. Rinse mouth after use. VIT C/DL-E AC/LUT/COPPER/ZNOX (PRESERVISION ORAL) Take 1 Each by mouth once daily. Sodium Chloride (OCEAN NASAL) 0.65 % NASAL [facility] atorvastatin (LIPITOR) 80 mg tablet Take 1 tablet by mouth daily at bedtime. For cholesterol. No current facility-administered medications for this visit. Objective BP 112/62 (BP Site: Left Arm, BP Position: Sitting, BP Cuff Size: Large Adult) Pulse (!) 56 Resp 12 Wt 74.4 kg (164 lb) BMI 25.23 kg/m Physical Exam Constitutional: General: He is not in acute distress. Appearance: He is not ill-appearing. Eyes: General: No scleral icterus. Conjunctiva/sclera: Conjunctivae normal. Cardiovascular: Rate and Rhythm: Bradycardia present. Heart sounds: S1 normal and S2 normal. Murmur heard. Systolic murmur is present with a grade of 1/6. Pulmonary: Effort: No respiratory distress. Breath sounds: Rales present. Musculoskeletal: Right lower leg: No edema. Left lower leg: No edema. Neurological: Mental Status: He is alert. Gait: Gait normal. Assessment and Plan 1. Atherosclerosis of [place] coronary artery of [place] heart without angina pectoris - ICD9: 414.01, ICD10: I25.10 (primary diagnosis) See HPI. 2. Essential hypertension - ICD9: 401.9, ICD10: I10 - Controlled 3. Hyperlipidemia, unspecified hyperlipidemia type - ICD9: 272.4, ICD10: E78.5 - Controlled - Continue current medications - See printed instructions or information. 4. Stented coronary artery - ICD9: V45.82, ICD10: Z95.5 DAPT x 6 months or more. Aspirin indefinitely. Marinao Beltran MD documented in this encounter [facility] 10-18-2022 Telephone encounter Note Faxed rehab order that is signed by Dr. Ayon to [phone] [facility] 10-18-2022 Miscellaneous Notes Faxed rehab order that is signed by Dr. Ayon to [phone] Faxed rehab order, Alok office note and PCI report to [facility] at [phone], spoke with patients and she is aware that I was faxing info Spouse [facility] stating that Dr. Ayon did surgery and cardiac rehab order was to be sent to [facility]. States order not received. Faxed rehab order and office note to [facility] documented in this encounter [facility] 10-15-2022 Telephone encounter Note Faxed rehab order, Alok office note and PCI report to [facility] at [phone], spoke with patients and she is aware that I was faxing info [facility] 10-15-2022 Miscellaneous Notes Faxed rehab order, Alok office note and PCI report to [facility] at [phone], spoke with patients and she is aware that I was faxing info Spouse [facility] stating that Dr. Ayon did surgery and cardiac rehab order was to be sent to [facility]. States order not received. Faxed rehab order and office note to [facility] documented in this encounter [facility] 10-13-2022 Telephone encounter Note Spouse [facility] stating that Dr. Ayon did surgery and cardiac rehab order was to be sent to [facility]. States order not received. [facility] 09-30-2022 Telephone encounter Note Faxed rehab order and office note to [facility] 09-30-2022 Miscellaneous Notes Faxed rehab order and office note to [facility] documented in this encounter [facility] 09-30-2022 History of Presen t illness Narrative Images from the original note were not included. [facility] Cardiovascular Medicine [facility] [address] [facility] [address] Dept: [phone] Dept Loc: [phone] DATE of SERVICE: 09/30/2022 DATE of : 1935 PRIMARY CARE PHYSICIAN: Mariano Beltran Visit type: ESTABLISHED Chief Complaint: Chief Complaint Patient presents with Coronary Artery Disease S/p multivessel PCI Assessment and Plan 1. Coronary artery disease involving [place] coronary artery of [place] heart with other form of angina pectoris (HCC) Stable after multivessel PCI. Decrease Toprol XL to 12.5 mg nightly given bradycardia and mild hypotension. Follow blood pressures at home. He wishes to participate in cardiac rehab and referral was faxed today. Followup with Dr Gee in 4 weeks. 2. Moderate aortic stenosis Recommended echocardiogram in 1-2 years. TAVR not recommended at this time. He intends to followup with Dr Gee 3. Primary hypertension Mild hypotension with addition of beta merced. Decrease dose and he will be seen by Dr Gee in 4-6 weeks. 4. Mixed hyperlipidemia Continue statin therapy 5. MARISOL (obstructive sleep apnea) Unable to tolerate CPAP Followup: Follow up for prn; will schedule followup with Dr Gee in 4 weeks. Subjective History of Present Illness: Eben Pardo is a 86 y.o. male with cardiac risk factors positive for hypertension, hyperlipidemia and family history of premature CAD. Negative for cigarette smoking or diabetes mellitus. Past medical history: Hard of hearing with hearing aids, possible TIA. August 2022 carotid duplex shows less than 50% stenoses bilaterally. He does have MARISOL but is intolerant of CPAP. Recently diagnosed with multivessel CAD and moderate aortic stenosis (sxs of CARTAGENA and decreased activity tolerance) by Dr Gee ([facility]). Pt preferred percutaneous intervention vs CABG. Referred to Dr Ayon for multivessel PCI on 09/20/2022 at which time he underwent angioplasty of D1, with PCI using RUPESH of the pLAD, OM1, and rPDA with good angiographic results. Labs stable 09/21/2022. Metoprolol added to regimen, atorvastatin increased and DAPT therapy continued with PPI use. Today in followup, resolving ecchymosis to right radial site and right femoralsite. Chest pressure resolved. No bleeding, easy bruising noted. Has not been very active but no significant SOB. No dizziness or lightheadedness. Adherent to medication use. He wishes to participate in cardiac rehab in [place]. Has been making dietary changes with weight loss of 20 pounds over the last few months. History and Review of Systems Past Medical History: Past Medical History: Diagnosis Date Aortic stenosis Bruit of left carotid artery Coronary artery disease Hyperlipidemia Hypertension MARISOL (obstructive sleep apnea) Past Surgical History Past Surgical History: Procedure Laterality Date APPENDECTOMY CARDIAC CATHETERIZATION CARDIAC CATHETERIZATION N/A 09/20/2022 Performed by Clayton Ayon MD at [facility] Cardiac Cath/EP Lab CARDIAC CATHETERIZATION N/A 09/20/2022 Performed by Clayton Ayon MD at [facility] Cardiac Cath/EP Lab PROSTATE BIOPSY Family History Family History Problem Relation Name Age of Onset Heart attack Father 60 Heart disease Sister Heart disease Brother Social History reports that he has never smoked. He has never used smokeless tobacco. He reports that he does not drink alcohol. Allergies: Allergies Allergen Reactions Gabapentin Shortness of breath Meloxicam Sulfa Antibiotics Medications: Current Outpatient Medications: amLODIPine (Norvasc) 2.5 MG tablet, Take 2.5 mg by mouth daily., Disp: , Rfl: Ascorbic Acid (vitamin C) 250 MG tablet, Take 250 mg by mouth daily., Disp: , Rfl: aspirin 81 MG EC tablet, Take 81 mg by mouth daily., Disp: , Rfl: atorvastatin (Lipitor) 80 MG tablet, Take 1 tablet (80 mg) by mouth Nightly., Disp: 30 tablet, Rfl: 11 Brilinta 90 MG tablet, Take 1 tablet (90 mg) by mouth 2 times daily., Disp: 180 tablet, Rfl: 1 finasteride (Proscar) 5 MG tablet, Take 5 mg by mouth daily., Disp: , Rfl: fluticasone (Flonase) 50 MCG/ACT nasal spray, Administer 1 spray into each nostril daily. Shake gently. Before first use, prime pump. After use, clean tip and replace cap., Disp: , Rfl: Multiple Vitamins-Minerals (CENTRUM SILVER PO), Take by mouth., Disp: , Rfl: Multiple Vitamins-Minerals (PRESERVISION AREDS 2 PO), Take by mouth., Disp: , Rfl: nitroglycerin (Nitrostat) 0.4 MG SL tablet, Place 1 tablet (0.4 mg) under the tongue every 5 minutes as needed for chest pain. X 3 doses then call 911, Disp: 90 tablet, Rfl: 12 omeprazole (PriLOSEC) [address] capsule, , Disp: , Rfl: raNITIdine (Zantac) 300 MG capsule, Take 300 mg by mouth 2 times daily. Protect from light, Disp: , Rfl: metoprolol succinate XL (Toprol-XL) 25 MG 24 hr tablet, Take 0.5 tablets (12.5 mg) by mouth Nightly. Do not crush or chew., Disp: 45 tablet, Rfl: 3 Review of Systems: Review of Systems Constitutional: Negative for chills, diaphoresis and fever. HENT: Negative for nosebleeds. Eyes: Negative for visual disturbance. Respiratory: Positive for shortness of breath. Negative for cough and wheezing. Cardiovascular: Negative for chest pain, palpitations and leg swelling. Swelling of hands and wrists Gastrointestinal: Negative for abdominal pain, blood in stool, constipation, diarrhea, nausea and vomiting. Musculoskeletal: Negative for myalgias. Skin: Negative for rash. Neurological: Negative for dizziness and syncope. Hematological: Bruises/bleeds easily. Psychiatric/Behavioral: Negative for dysphoric mood and suicidal ideas. Objective Physical Examination: Vitals: Vitals: 09/30/22 1309 BP: 100/58 BP Location: Left arm Patient Position: Sitting BP Cuff Size: Large adult Pulse: (!) 46 SpO2: 97% Weight: 167 lb 3.2 oz (75.8 kg) Height: 5' 7 (1.702 m) Body mass index is 26.19 kg/m . Physical Exam Vitals reviewed. Exam conducted with a culinary director present (). Constitutional: Appearance: Normal appearance. HENT: Head: Normocephalic. Mouth/Throat: Pharynx: No oropharyngeal exudate. Eyes: Pupils: Pupils are equal, round, and reactive to light. Cardiovascular: Rate and Rhythm: Regular rhythm. Bradycardia present. Pulses: Radial pulses are 1+ on the right side and 1+ on the left side. Heart sounds: Murmur heard. No gallop. Comments: Femoral cath site healing appropriately Pulmonary: Effort: No respiratory distress. Breath sounds: Normal breath sounds. No wheezing or rales. Abdominal: General: Bowel sounds are normal. There is no distension. Palpations: Abdomen is soft. Tenderness: There is no abdominal tenderness. Musculoskeletal: General: Normal range of motion. Cervical back: Normal range of motion. Right lower leg: No edema. Left lower leg: No edema. Skin: General: Skin is warm and dry. Findings: Bruising (resolving to right hand from catheterization site) present. Neurological: General: No focal deficit present. Mental Status: He is alert and oriented to person, place, and time. Data Reviewed Laboratory Tests: Lab Results Component Value Date WBC 13.9 (H) 09/21/2022 HGB 13.1 09/21/2022 HCT 39.8 (L) 09/21/2022 MCV 95.2 09/21/2022 PLT 241 09/21/2022 Lab Results Component Value Date GLUCOSE 131 (H) 09/21/2022 CALCIUM 9.1 09/21/2022 NA 139 09/21/2022 K 4.4 09/21/2022 CO2 22 09/21/2022 CL 107 09/21/2022 BUN 21 (H) 09/21/2022 CREATININE 0.97 09/21/2022 Lab Results Component Value Date CHOL 103 09/21/2022 Lab Results Component Value Date TRIG 107 09/21/2022 Lab Results Component Value Date HDL 24 (L) 09/21/2022 Cardiac Tests: ECG: Encounter Date: 09/20/22 ECG 12 lead Result Value Heart Rate 60 QRSD Interval 83 QT Interval 442 QTC Interval 442 P [place] 53 QRS [place] 52 T Wave [place] 129 IL Interval 229 Impression Sinus rhythm Prolonged IL interval Repol abnrm suggests ischemia, lateral leads Minimal ST elevation, inferior leads Electronically Signed On 09-21-2022 11:12:22 EDT by Sammi Randolph Last Echo: 08/05/2022 CONCLUSIONS: - Technically difficult exam due to body habitus. - Exam indication: Cardiac murmur - The left ventricle is small. Left ventricular systolic function is normal. EF = 54 5% (2D 4-ch.) Grade I left ventricular diastolic dysfunction. - The right ventricle is normal in size. Right ventricular systolic function is normal. - Tricuspid aortic valve. There is moderate aortic valve stenosis. AV area is 1.10 cm (0.56 cm /m ) by continuity, VTI. The peak gradient is 20 mmHg, the mean gradient is 11 mmHg and the dimensionless valve index is 0.29. - Exam was compared with the prior echocardiographic exam performed on 12/21/2018, there is aortic stenosis noted now. Last Cardiac Catheterization: 09/20/2022 Conclusions Proximal 95% stenosis in left anterior descending artery Proximal 90% stenosis in a small caliber D1 Proximal 90% stenosis in proximal OM1 90% stenosis in the right posterolateral artery IVUS guided PCI of proximal left LAD with a 3 x 38 mm drug-eluting stent which proximally was overlapped with a 3.5 x 12 mm stent PCI of the OM1 with a 2.75 x 15 mm stent with IVUS guidance PCI of the right posterolateral branch with a 2.5 x 23 mm stent Balloon angioplasty of the diagonal with a 2.0 x 15 mm balloon Plan Aggressive risk factor modification Optimal guideline directed medical therapy for coronary artery disease Dual antiplatelet therapy for at least 6 months and longer if tolerates. ASA indefinitely. Cardiac rehabilitation Alok Whitehead, MSN, DIALYSIS BIOMED TECHNICIAN-, [facility]-[address] [place] [id number] p [phone] f [phone] [email or web address] documented in this encounter [facility] 09-21-2022 Note Received referral an d reviewed chart. Unable to discuss Phase II Cardiac Rehab Referral with Eben Pardo at this time. Will follow to discuss cardiac rehab when appropriate. Patient will be contacted at home if discharged prior to discussion. [facility] 09-21-2022 Note Name: Eben Pardo Date of : 1935 Date of Admission: 09/20/2022 Date of Discharge: 09/21/2022 Admitting physician: Clayton Ayon MD Discharge Attending: BERNARDO Sethi CNP, Dr. Silver Primary Care Physician: Mariano Beltran Review of Systems: Review of Systems Constitutional: Negative for activity change, chills, diaphoresis, fatigue and fever. HENT: Negative for nosebleeds and trouble swallowing. Eyes: Negative for discharge and visual disturbance. Respiratory: Negative for apnea, cough, chest tightness, shortness of breath and wheezing. Cardiovascular: Positive for chest pain (Across chest, constant, worsens with palpation of chest wall). Negative for palpitations and leg swelling. Gastrointestinal: Negative for abdominal distention, abdominal pain, blood in stool, diarrhea, nausea and vomiting. Endocrine: Negative for cold intolerance and heat intolerance. Genitourinary: Negative for hematuria. Musculoskeletal: Negative for gait problem and myalgias. Skin: Negative for color change and rash. Neurological: Negative for dizziness, seizures, syncope, facial asymmetry, speech difficulty, weakness, light-headedness, numbness and headaches. Hematological: Does not bruise/bleed easily. Psychiatric/Behavioral: Negative for dysphoric mood. All other systems reviewed and are negative. Physical Exam: Physical Exam Constitutional: Appearance: Normal appearance. HENT: Head: Normocephalic and atraumatic. Ears: Comments: Very FALSE PASS, not using hearing aids as battery Cardiovascular: Rate and Rhythm: Normal rate and regular rhythm. Pulses: Normal pulses. Heart sounds: Normal heart sounds. Comments: CP worsens with palpation of chest wall Pulmonary: Breath sounds: Normal breath sounds. Abdominal: General: Bowel sounds are normal. Palpations: Abdomen is soft. Musculoskeletal: General: Normal range of motion. Skin: General: Skin is warm and dry. Comments: Right femoral site soft and nontender, without hematoma, ecchymosis, or bruit. Pulse 2+, good sensation. Neurological: Mental Status: He is alert and oriented to person, place, and time. Psychiatric: Mood and Affect: Mood normal. Behavior: Behavior normal. Vitals: 09/21/22 0930 09/21/22 0935 09/21/22 0940 09/21/22 0945 BP: Pulse: 70 71 78 63 Resp: 18 25 18 16 Temp: TempSrc: SpO2: Weight: Height: Reason for Admission: CAD Consultants: Cardiac Rehab HOSPITAL ADMISSION PROBLEM LIST: Patient Active Problem List Diagnosis Aortic stenosis Hypertension Coronary artery disease Bruit of left carotid artery Hyperlipidemia MARISOL (obstructive sleep apnea) CAD in [place] artery Coronary artery disease involving [place] coronary artery of [place] heart with other form of angina pectoris (HCC) Procedures: Cath Summary: 09/20/22: Coronary Arteriography Dominance: Right Left Main: Normal Left Anterior Descending: Proximal 95% stenosis Diagonals: One prominent <= 2 mm diagonal vessel with 95% stenosis which distally divides into 2 branches. There are multiple other small diagonal vessels( <2mm) Left Circumflex: Proximal left circumflex with mild disease, no high-grade focal disease Obtuse Marginals: OM1 with 90% proximal stenosis. Right Coronary: No high-grade disease proximally. Right Posterior Descending: Normal Right Posterolateral: 90% stenosis in the right posterolateral branch. No collaterals noted Coronary Intervention Left coronary system was engaged first. After guide engagement and wiring of the vessel, the diagonal branch was first intervened. Angioplasty was done with 1.5 x 15 mm balloon followed by a 2.0x15 mm balloon. There was reduction of the 90% stenosis to 0%. No complications Next, we turned our attention to the proximal LAD disease. The lesion was predilated with a 3.0 x 20 mm balloon. Next, we deployed a 3 x 38 mm drug-eluting stent. A second 3.5 x 12 mm stent was deployed in an overlapping fashion with the prior stent. There was reduction of the 95% stenosis to 0%. IVUS was used for vessel sizing. No complications noted. We then proceeded with intervention of the left circumflex system. The lesion in the OM1 was predilated with a 2.5 x 15 mm balloon. The lesion was then stented with a 2.75 x 15 mm stent. No complications noted Finally, we turned our attention to the right coronary artery. After guide engagement and wiring of the vessel, the right posterolateral branch was predilated with a 2.0 x 15 mm balloon. The lesion was then stented with a 2.5 x 23 mm RUPESH. Final angiogram revealed TINO-3 flow across the entire RCA with no dissection or perforation noted Complications None Conclusions Proximal 95% stenosis in left anterior descending artery Proximal 90% stenosis in a small caliber D1 Proximal 90% stenosis in proximal OM1 90% stenosis in the right posterolateral artery I (more content not included)... [facility] 09-21-2022 Consult note Associated Order (s): IP CONSULT TO CARDIAC REHAB; IP CONSULT TO CARDIAC REHAB Received referral and reviewed chart. Unable to discuss Phase II Cardiac Rehab Referral with Eben Pardo at this time. Will follow to discuss cardiac rehab when appropriate. Patient will be contacted at home if discharged prior to discussion. [facility] 09-21-2022 Consult note Associated Order (s): IP CONSULT TO CARDIAC REHAB; IP CONSULT TO CARDIAC REHAB Received referral and reviewed chart. Unable to discuss Phase II Cardiac Rehab Referral with Eben Pardo at this time. Will follow to discuss cardiac rehab when appropriate. Patient will be contacted at home if discharged prior to discussion. documented in this encounter [facility] 09-21-2022 Nurse Note Ok for discharge, hl and tele have been discontinued. Reviewed home going instructions. states she understands and has no questions. Has belongings, scripts sent to pt pharmacy. [facility] 09-21-2022 Nurse Note Ok for discharge, hl and tele have been discontinued. Reviewed home going instructions. states she understands and has no questions. Has belongings, scripts sent to pt pharmacy. documented in this encounter [facility] 09-21-2022 Hospital course Narrative Images from the original note were not included. Name: Eben Pardo Date of : 1935 Date of Admission: 09/20/2022 Date of Discharge: 09/21/2022 Admitting physician: Clayton Ayon MD Discharge Attending: BERNARDO Sethi CNP, Dr. Silver Primary Care Physician: Mariano Beltran Review of Systems: Review of Systems Constitutional: Negative for activity change, chills, diaphoresis, fatigue and fever. HENT: Negative for nosebleeds and trouble swallowing. Eyes: Negative for discharge and visual disturbance. Respiratory: Negative for apnea, cough, chest tightness, shortness of breath and wheezing. Cardiovascular: Positive for chest pain (Across chest, constant, worsens with palpation of chest wall). Negative for palpitations and leg swelling. Gastrointestinal: Negative for abdominal distention, abdominal pain, blood in stool, diarrhea, nausea and vomiting. Endocrine: Negative for cold intolerance and heat intolerance. Genitourinary: Negative for hematuria. Musculoskeletal: Negative for gait problem and myalgias. Skin: Negative for color change and rash. Neurological: Negative for dizziness, seizures, syncope, facial asymmetry, speech difficulty, weakness, light-headedness, numbness and headaches. Hematological: Does not bruise/bleed easily. Psychiatric/Behavioral: Negative for dysphoric mood. All other systems reviewed and are negative. Physical Exam: Physical Exam Constitutional: Appearance: Normal appearance. HENT: Head: Normocephalic and atraumatic. Ears: Comments: Very FALSE PASS, not using hearing aids as battery Cardiovascular: Rate and Rhythm: Normal rate and regular rhythm. Pulses: Normal pulses. Heart sounds: Normal heart sounds. Comments: CP worsens with palpation of chest wall Pulmonary: Breath sounds: Normal breath sounds. Abdominal: General: Bowel sounds are normal. Palpations: Abdomen is soft. Musculoskeletal: General: Normal range of motion. Skin: General: Skin is warm and dry. Comments: Right femoral site soft and nontender, without hematoma, ecchymosis, or bruit. Pulse 2+, good sensation. Neurological: Mental Status: He is alert and oriented to person, place, and time. Psychiatric: Mood and Affect: Mood normal. Behavior: Behavior normal. Vitals: 09/21/22 0930 09/21/22 0935 09/21/22 0940 09/21/22 0945 BP: Pulse: 70 71 78 63 Resp: 18 25 18 16 Temp: TempSrc: SpO2: Weight: Height: Reason for Admission: CAD Consultants: Cardiac Rehab HOSPITAL ADMISSION PROBLEM LIST: Patient Active Problem List Diagnosis Aortic stenosis Hypertension Coronary artery disease Bruit of left carotid artery Hyperlipidemia MARISOL (obstructive sleep apnea) CAD in [place] artery Coronary artery disease involving [place] coronary artery of [place] heart with other form of angina pectoris (HCC) Procedures: Cath Summary: 09/20/22: Coronary Arteriography Dominance: Right Left Main: Normal Left Anterior Descending: Proximal 95% stenosis Diagonals: One prominent <= 2 mm diagonal vessel with 95% stenosis which distally divides into 2 branches. There are multiple other small diagonal vessels( <2mm) Left Circumflex: Proximal left circumflex with mild disease, no high-grade focal disease Obtuse Marginals: OM1 with 90% proximal stenosis. Right Coronary: No high-grade disease proximally. Right Posterior Descending: Normal Right Posterolateral: 90% stenosis in the right posterolateral branch. No collaterals noted Coronary Intervention Left coronary system was engaged first. After guide engagement and wiring of the vessel, the diagonal branch was first intervened. Angioplasty was done with 1.5 x 15 mm balloon followed by a 2.0x15 mm balloon. There was reduction of the 90% stenosis to 0%. No complications Next, we turned our attention to the proximal LAD disease. The lesion was predilated with a 3.0 x 20 mm balloon. Next, we deployed a 3 x 38 mm drug-eluting stent. A second 3.5 x 12 mm stent was deployed in an overlapping fashion with the prior stent. There was reduction of the 95% stenosis to 0%. IVUS was used for vessel sizing. No complications noted. We then proceeded with intervention of the left circumflex system. The lesion in the OM1 was predilated with a 2.5 x 15 mm balloon. The lesion was then stented with a 2.75 x 15 mm stent. No complications noted Finally, we turned our attention to the right coronary artery. After guide engagement and wiring of the vessel, the right posterolateral branch was predilated with a 2.0 x 15 mm balloon. The lesion was then stented with a 2.5 x 23 mm RUPESH. Final angiogram revealed TINO-3 flow across the entire RCA with no dissection or perforation noted Complications None Conclusions Proximal 95% stenosis in left anterior descending artery Proximal 90% stenosis in a small caliber D1 Proximal 90% stenosis in proximal OM1 90% stenosis in the right posterolateral artery IVUS guided PCI of proximal left LAD with a 3 x 38 mm drug-eluting stent which proximally was overlapped with a 3.5 x 12 mm stent PCI of the OM1 with a 2.75 x 15 mm stent with IVUS guidance PCI of the right posterolateral branch with a 2.5 x 23 mm stent Balloon angioplasty of the diagonal with a 2.0 x 15 mm balloon Plan Aggressive risk factor modification Optimal guideline directed medical therapy for coronary artery disease Dual antiplatelet therapy for at least 6 months and longer if tolerates. ASA indefinitely. Cardiac rehabilitation HOSPITAL COURSE : Eben Pardo is a 86 y.o. male cardiac risk factors positive for hypertension, hyperlipidemia and family history of premature CAD. Negative for cigarette smoking or diabetes mellitus. Past medical history: Hard of hearing with hearing aids. August 2022 carotid duplex shows less than 50% stenoses bilaterally. He does have MARISOL but is intolerant of CPAP. He is a patient of Dr. Jasper Gee from [place]. Over the past several years he has been having complaints of midsternal chest discomfort with exertion. This is nonradiating. There is some associated dyspnea but no diaphoresis or nausea. Recently the symptoms have been accelerating. An exercise tolerance test was negative for ischemia. An echocardiogram demonstrated moderate aortic stenosis with good LV function. Cardiac catheterization by Dr. Gee has demonstrated significant discrete three-vessel disease. He also has a small first diagonal with ostial-proximal stenosis. These lesions are approachable percutaneously. Given the patient's age, Dr. Gee and the patient preferred to proceed with percutaneous intervention rather than CABG. He saw Dr. Ayon in office and plan for PCI. He presented to [facility] 09/20/22 for elective PCI and received successful RUPESH prox LAD, RUPESH OM1, RUPESH RPL, PTCA diagonal via femoral site. He tolerated procedure well and was kept overnight for monitoring. Sheath removed without difficulty. Pt had constant CP worsened with palpation that appeared musculoskeletal, but otherwise denied symptoms. Denied SOB, CAR, vision/speech changes. EKG stable. VSS. Labs stable. Med changes include: increased atorvastatin, added metoprolol succinate, added prn ntg SL, changed PPI to on empty stomach. Other home meds continued including ASA, ticagrelor, amlodipine. Overnight he did well without new complaints. He will be discharged home today with plans to follow up in Dr. Ayon's office with NITZA in 2 weeks then back to Dr. Gee. Educated provided to pt and family, verbal and written. Very FALSE PASS. Denies Angina or SOB.Does c/o bipectoral discomfort that is positional and worse w palpation. Easily reproducible on exam. Last Labs: Lab Results Component Value Date WBC 13.9 (H) 09/21/2022 HGB 13.1 09/21/2022 HCT 39.8 (L) 09/21/2022 MCV 95.2 09/21/2022 PLT 241 09/21/2022 Lab Results Component Value Date NA 139 09/21/2022 K 4.4 09/21/2022 CL 107 09/21/2022 CO2 22 09/21/2022 BUN 21 (H) 09/21/2022 CREATININE 0.97 09/21/2022 GLUCOSE 131 (H) 09/21/2022 CALCIUM 9.1 09/21/2022 Lab Results Component Value Date CHOL 103 09/21/2022 Lab Results Component Value Date TRIG 107 09/21/2022 Lab Results Component Value Date HDL 24 (L) 09/21/2022 Lab Results Component Value Date LDLCALC 58 09/21/2022 Final Principle Discharge Diagnosis: CAD s/p RUPESH prox LAD, RUPESH OM1, RUPESH RPL, PTCA diagonal 09/20/22 - Stable. Denies angina. Reports constant CP worse with palpation that appears musculoskeletal. Denies SOB. VSS, labs stable. EKG stable. Right femoral site stable. Will add BB and prn ntg SL. Will increase atorvastatin dose to 80mg. Continue ASA, ticagrelor, atorvastatin, amlodipine, and PPI. Advised to continue ASA 81mg daily lifelong without interruption and Brilinta 90mg PO BID for at least 1 year without interruption. Discharge instructions, medications, restrictions, and follow up appt reviewed and verbalized understanding. He will utilize [id number] for his home-going Rx. He was instructed to inform office if: he has any difficulty obtaining Rx or if this becomes a financial burden or if anyone asks him to hold ASA or ticagrelor. Patient and spouse both verbalized understanding. Secondary Discharge diagnosis: 2. Moderate - Stable. Does not need TAVR at this time. Recommend echo every 1-2 years or sooner if symptoms develop. 3. HTN - BP controlled. Continue amlodipine. Monitor BP at home with addition of BB as above. 4. HLD - Will increase atorvastatin from 10mg to 80mg. Recommend repeat labs in 12 weeks. 5. MARISOL - Intolerant of CPAP. Discharge Medications: Medication List START taking these medications metoprolol succinate XL 25 MG 24 hr tablet Commonly known as: Toprol-XL Take 1 tablet (25 mg) by mouth Nightly. Do not crush or chew. nitroglycerin 0.4 MG SL tablet Commonly known as: Nitrostat Place 1 tablet (0.4 mg) under the tongue every 5 minutes as needed for chest pain. X 3 doses then call 911 CHANGE how you take these medications atorvastatin 80 MG tablet Commonly known as: Lipitor Take 1 tablet (80 mg) by mouth Nightly. What changed: medication strength how much to take CONTINUE taking these medications amLODIPine 2.5 MG tablet Commonly known as: Norvasc aspirin 81 MG EC tablet Brilinta 90 MG tablet Generic drug: ticagrelor * CENTRUM SILVER PO * PRESERVISION AREDS 2 PO finasteride 5 MG tablet Commonly known as: Proscar fluticasone 50 MCG/ACT nasal spray Commonly known as: Flonase omeprazole [address] capsule Commonly known as: PriLOSEC raNITIdine 300 MG capsule Commonly known as: Zantac vitamin C 250 MG tablet * This list has 2 medication(s) that are the same as other medications prescribed for you. Read the directions carefully, and ask your doctor or other care provider to review them with you. Where to Get Your Medications These medications were sent to [id number] - [place], [place] - [address] [id number] atorvastatin 80 MG tablet metoprolol succinate XL 25 MG 24 hr tablet nitroglycerin 0.4 MG SL tablet ICD Registry Information/AMI Registry Information NYHA Functional Classification: Class I Medical Therapy Aspirin: Yes If NO reason for omission ROBB/ARB: No If NO reason for omission Not indicated Statin: Yes If NO reason for omission Beta [place]: Yes If NO reason for omission [id number] Inhibitors: Yes If NO reason for omission Aldosterone inhibitor: No If NO reason for omission Not indicated Cardiac rehab Discussed with patient: Yes If NO reason for omission Cardiac Rehab The Cardiac Rehab team at [facility] consists of highly skilled exercise physiologists, nurses, respiratory therapists and physicians working together with you. Our purpose is to help you have a full recovery and achieve the goals you set for yourself. Over the years many of our patients have returned to activities they assumed they would never do again! We can help restore your confidence and motivation to make lifestyle changes that can have a significant impact on your health and quality of life! We can help answer questions and concerns you may have about exercise, lifestyle, medications, diet, stress and anxiety which are common following a hospitalization. We monitor ECG and vital signs during exercise and discuss your progress with you and report to your physician. Cardiac Rehab is proven to help reduce readmissions, improve functional capacity and lower recurrence of problems with your heart. We have facilities at both [facility] and [facility]. At both locations we have street level parking which is free and our sites are easily accessible. For both [facility] you can contact us at . We invite you to call us with your questions or to get started in our program. If you have other questions or concerns be sure to ask your provider during your follow up visit. We look forward to seeing you there. Our locations: [facility] [address] [facility] [place] Ground Floor [id number] - Ground floor BMI Classification: Overweight (BMI 25.0-29.9) DIET: A lowfat, low cholesterol diet was discussed with the patient. Discharge to Home Condition at Discharge: good Follow up with cardiology Alok Whitehead, 09/30/22 at 1:00pm If any questions call [facility] Cardiology-[facility] office [phone] Total time spent for Discharge time greater than 45 minutes Doing well. Will add BBL. Home today. Follow up w my NITZA in [address] Gee in 8 weeks. Needs referal for Cardiac Rehab. I, Dr. Clayton Ayon, saw and evaluated the patient on 09/21/2022. I personally obtained the odonnell and critical portions of the history and physical exam. I reviewed the labs, imaging studies, and electronic medical record. I reviewed the NITZA's documentation, and discussed the patient with the NITZA. I agree with the NITZA's medical decision making and have edited the note to reflect my clinical findings and my assessment and plan. Total time 35 minutes. NITZA's time [address] Ayon's time 20 minutes. documented in this encounter [facility] 09-20-2022 [facility] Discharg e instructions Liz Cabezas Ranjitparthkm, NETWORK CONTROL OPERATOR - DIALYSIS BIOMED TECHNICIAN - 09/20/2022 3:33 PM EDT Call your doctor with any medication questions or if you notice any side effects from your medications. If you are unable to fill your medications, please call your Electric Sealing Machine Operator immediately. The office number is located with your follow-up appointment information. Call your doctor if any redness or drainage from the wound site. DO NOT stop taking your medication unless instructed to do so by your doctor. Read the drug information material that were given to you and take medications as instructed by your doctor. New drugs may have been added to your medications, that will strengthen your heart and prevent re-stenosis of the coronary arteries. Drink 6 glasses of water (8 ounces each) over the next 24 hours. Water helps clear the dye from your body. No alcoholic beverages for 24 hours. It may interfere with healing. No exercise or sex for 5 days. Call 911 for chest pain, arm pain, nausea, neck pain, dizziness or unusual sweating AND your pain has not relieved with 2 doses of Nitroglycerin. Call your doctor if a lump at the puncture site enlarges or is larger than a golf ball. Call your doctor for severe pain to a light touch or for numbness, tingling or swelling of the affected foot. Call your doctor for increased area of bruising with discoloration extending down the leg. Call your doctor for coolness of the leg or foot. If bleeding occurs, lie down on a hard surface preferably the floor and apply pressure to the site for 20 minutes if BLEEDING continues CALL 911. OK to shower. No tub baths, swimming pools, or hot tub soaking for five days. Wash site daily with soap and water, dry gently. The healing wound should remain soft and dry. Keep the site clean and dry. Cover with large band aid and change dressing for total of five days. No lifting, pushing or pulling more than 5 pounds for 5 days. No driving for three days. Limit your stair climbing for three days. GIVE PCI PACKET (FROM TANGLED YARN SPOOL STRAIGHTENER) TO PATIENT Give Coronary Artery Discharge Book. PLEASE CALL YOUR HEART DOCTOR IF YOU CANNOT GET YOUR MEDICATIONS. THE NUMBER IS LISTED WITH YOUR FOLLOW-UP APPOINTMENT. Procedure Sedation Instructions If you have received sedation: you must have someone drive you home You should not drive a car, operate machinery, drink alcohol or perform any activity that requires alertness for the rest of the day. The effects of the sedative should be gone by tomorrow. Blood work in 5-7 days, see orders Cardiac Rehab The Cardiac Rehab team at [facility] consists of highly skilled exercise physiologists, nurses, respiratory therapists and physicians working together with you. Our purpose is to help you have a full recovery and achieve the goals you set for yourself. Over the years many of our patients have returned to activities they assumed they would never do again! We can help restore your confidence and motivation to make lifestyle changes that can have a significant impact on your health and quality of life! We can help answer questions and concerns you may have about exercise, lifestyle, medications, diet, stress and anxiety which are common following a hospitalization. We monitor ECG and vital signs during exercise and discuss your progress with you and report to your physician. Cardiac Rehab is proven to help reduce readmissions, improve functional capacity and lower recurrence of problems with your heart. We have facilities at both [facility] and [facility]. At both locations we have street level parking which is free and our sites are easily accessible. For both campuses you can contact us at . We invite you to call us with your questions or to get started in our program. If you have other questions or concerns be sure to ask your provider during your follow up visit. We look forward to seeing you there. Our locations: [facility] [address] [facility] [address] Ground Floor [id number] - Ground floor documented in this encounter [facility] 09-20-2022 History of Presen t illness Narrative Checked on pt s/p PCI. states he just fell asleep. States he was having mild chest ache since PCI and some chronic back discomfort but that he just got comfortable and fell asleep. States he didn't have SOB, CAR, vision/speech changes. Femoral site stable, sheath still in as ACT was >170 and awaiting recheck. EKG stable. Plan to keep overnight and discharge in morning. Will educate pt in the morning. documented in this encounter [facility] 09-20-2022 Note Formatting of this n ote might be different from the original. Sedation Plan ASA class 3 - patient with severe systemic disease Mallampati class: III - soft palate, base of uvula visible. Sedation plan: local anesthesia and moderate (conscious sedation) Risks, benefits, and alternatives discussed with patient. Use of blood products discussed with patient who consented to blood products. Plan discussed with attending. Immediate reassessment prior to sedation: Patient's status reviewed and vital signs assessed; acceptable to perform procedure and proceed to administer sedation as planned. [facility] 09-20-2022 Miscellaneous Notes Sedation Plan ASA class 3 - patient with severe systemic disease Mallampati class: III - soft palate, base of uvula visible. Sedation plan: local anesthesia and moderate (conscious sedation) Risks, benefits, and alternatives discussed with patient. Use of blood products discussed with patient who consented to blood products. Plan discussed with attending. Immediate reassessment prior to sedation: Patient's status reviewed and vital signs assessed; acceptable to perform procedure and proceed to administer sedation as planned. 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 (HCC) +6 more Dx New Patient Shortness of Breath Chest Pain; Referred by Jasper Gee Reason for Visit Progress Notes Clayton Ayon MD (Physician) Cardiology Expand All Collapse All [facility] Cardiovascular Medicine [facility] [address] [place] [address] Dept: [phone] Dept Loc: [phone] DATE of SERVICE: 09/16/22 TIME of SERVICE: 4:25 PM DATE of : 1935 PRIMARY CARE PHYSICIAN: Mariano Beltran Visit type: New patient Subjective Chief Complaint: Chief Complaint Patient presents with New Patient Consult for PCI Shortness of Breath Chest Pain History of Present Illness: Eben Pardo is a 86 y.o. male cardiac risk factors positive for hypertension, hyperlipidemia and family history of premature CAD. Negative for cigarette smoking or diabetes mellitus. Past medical history: Hard of hearing with hearing aids. August 2022 carotid duplex shows less than 50% stenoses bilaterally. He does have MARISOL but is intolerant of CPAP. He is a patient of Dr. Jasper Gee from [place]. Over the past several years he has been having complaints of midsternal chest discomfort with exertion. This is nonradiating. There is some associated dyspnea but no diaphoresis or nausea. Recently the symptoms have been accelerating. An exercise tolerance test was negative for ischemia. An echocardiogram demonstrated moderate aortic stenosis with good LV function. Cardiac catheterization by Dr. Gee has demonstrated significant discrete three-vessel disease. He also has a small first diagonal with ostial-proximal stenosis. These lesions are approachable percutaneously. I have reviewed the angiogram earlier this week and discussed with Dr. Gee. Given the patient's age, Dr. Gee and the patient preferred to proceed with percutaneous intervention rather than CABG. The patient was told of a heart murmur in the past. No prior history of GA, CVA, rheumatic fever. He thinks he may have had a TIA sometime in the remote past. No palpitations or syncope. No edema, orthopnea, PND. No bleeding or bruising. The patient has been taking aspirin [address] Gee has started him on Brilinta already. History and Review of Systems Past Medical History: Medical History Past Medical History: Diagnosis Date Aortic stenosis Bruit of left carotid artery Coronary artery disease Hyperlipidemia Hypertension MARISOL (obstructive sleep apnea) Past Surgical History Surgical History Past Surgical History: Procedure Laterality Date APPENDECTOMY CARDIAC CATHETERIZATION PROSTATE BIOPSY Allergies: Allergies Allergen Reactions Gabapentin Shortness of breath Meloxicam Sulfa Antibiotics Medications: Current Outpatient Medications: amLODIPine (Norvasc) 2.5 MG tablet, Take 2.5 mg by mouth daily., Disp: , Rfl: Ascorbic Acid (vitamin C) 250 MG tablet, Take 250 mg by mouth daily., Disp: , Rfl: aspirin 81 MG EC tablet, Take 81 mg by mouth daily., Disp: , Rfl: atorvastatin (Lipitor) 10 MG tablet, Take 10 mg by mouth Nightly., Disp: , Rfl: Brilinta 90 MG tablet, Take 90 mg by mouth 2 times daily., Disp: , Rfl: finasteride (Proscar) 5 MG tablet, Take 5 mg by mouth daily., Disp: , Rfl: fluticasone (Flonase) 50 MCG/ACT nasal spray, Administer 1 spray into each nostril daily. Shake gently. Before first use, prime pump. After use, clean tip and replace cap., Disp: , Rfl: Multiple Vitamins-Minerals (CENTRUM SILVER PO), Take by mouth., Disp: , Rfl: Multiple Vitamins-Minerals (PRESERVISION AREDS 2 PO), Take by mouth., Disp: , Rfl: omeprazole (PriLOSEC) [address] capsule, , Disp: , Rfl: raNITIdine (Zantac) 300 MG capsule, Take 300 mg by mouth 2 times daily. Protect from light, Disp: , Rfl: Objective Physical Examination: Vitals: Vitals Vitals: 09/16/22 1559 BP: 104/62 BP Location: Left arm Patient Position: Sitting BP Cuff Size: Adult Pulse: 78 SpO2: 98% Weight: 169 lb 12.8 oz (77 kg) Height: 5' 7 (1.702 m) Wt Readings from Last 3 Encounters: 09/16/22 169 lb 12.8 oz (77 kg) Body mass index is 26.59 kg/m?. Physical Exam Constitutional: Appearance: Normal appearance. HENT: Head: Normocephalic and atraumatic. Right Ear: External ear normal. Left Ear: External ear normal. Ears: Comments: FALSE PASS - wearing hearing aides Nose: Nose normal. Mouth/Throat: Mouth: Mucous membranes are moist. Eyes: General: Right eye: No discharge. Left eye: No discharge. Neck: Vascular: No carotid bruit. Cardiovascular: Rate and Rhythm: Normal rate and regular rhythm. Heart sounds: Normal heart sounds, S1 normal and S2 normal. No murmur heard. No gallop. No S3 or S4 sounds. Pulmonary: Effort: Pulmonary effort is normal. B (more content not included)... 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 (HCC) +6 more Dx New Patient Shortness of Breath Chest Pain; Referred by Jasper Gee Reason for Visit Progress Notes Clayton Ayon MD (Physician) Cardiology Expand All Collapse All [facility] Cardiovascular Medicine [facility] [address] [facility] [address] Dept: [phone] Dept Loc: [phone] DATE of SERVICE: 09/16/22 TIME of SERVICE: 4:25 PM DATE of : 1935 PRIMARY CARE PHYSICIAN: Mariano Beltran Visit type: New patient Subjective Chief Complaint: Chief Complaint Patient presents with New Patient Consult for PCI Shortness of Breath Chest Pain History of Present Illness: Eben Pardo is a 86 y.o. male cardiac risk factors positive for hypertension, hyperlipidemia and family history of premature CAD. Negative for cigarette smoking or diabetes mellitus. Past medical history: Hard of hearing with hearing aids. August 2022 carotid duplex shows less than 50% stenoses bilaterally. He does have MARISOL but is intolerant of CPAP. He is a patient of Dr. Jasper Gee from [place]. Over the past several years he has been having complaints of midsternal chest discomfort with exertion. This is nonradiating. There is some associated dyspnea but no diaphoresis or nausea. Recently the symptoms have been accelerating. An exercise tolerance test was negative for ischemia. An echocardiogram demonstrated moderate aortic stenosis with good LV function. Cardiac catheterization by Dr. Gee has demonstrated significant discrete three-vessel disease. He also has a small first diagonal with ostial-proximal stenosis. These lesions are approachable percutaneously. I have reviewed the angiogram earlier this week and discussed with Dr. Gee. Given the patient's age, Dr. Gee and the patient preferred to proceed with percutaneous intervention rather than CABG. The patient was told of a heart murmur in the past. No prior history of GA, CVA, rheumatic fever. He thinks he may have had a TIA sometime in the remote past. No palpitations or syncope. No edema, orthopnea, PND. No bleeding or bruising. The patient has been taking aspirin [address] Gee has started him on Brilinta already. History and Review of Systems Past Medical History: Medical History Past Medical History: Diagnosis Date Aortic stenosis Bruit of left carotid artery Coronary artery disease Hyperlipidemia Hypertension MARISOL (obstructive sleep apnea) Past Surgical History Surgical History Past Surgical History: Procedure Laterality Date APPENDECTOMY CARDIAC CATHETERIZATION PROSTATE BIOPSY Allergies: Allergies Allergen Reactions Gabapentin Shortness of breath Meloxicam Sulfa Antibiotics Medications: Current Outpatient Medications: amLODIPine (Norvasc) 2.5 MG tablet, Take 2.5 mg by mouth daily., Disp: , Rfl: Ascorbic Acid (vitamin C) 250 MG tablet, Take 250 mg by mouth daily., Disp: , Rfl: aspirin 81 MG EC tablet, Take 81 mg by mouth daily., Disp: , Rfl: atorvastatin (Lipitor) 10 MG tablet, Take 10 mg by mouth Nightly., Disp: , Rfl: Brilinta 90 MG tablet, Take 90 mg by mouth 2 times daily., Disp: , Rfl: finasteride (Proscar) 5 MG tablet, Take 5 mg by mouth daily., Disp: , Rfl: fluticasone (Flonase) 50 MCG/ACT nasal spray, Administer 1 spray into each nostril daily. Shake gently. Before first use, prime pump. After use, clean tip and replace cap., Disp: , Rfl: Multiple Vitamins-Minerals (CENTRUM SILVER PO), Take by mouth., Disp: , Rfl: Multiple Vitamins-Minerals (PRESERVISION AREDS 2 PO), Take by mouth., Disp: , Rfl: omeprazole (PriLOSEC) 20 MG capsule, , Disp: , Rfl: raNITIdine (Zantac) 300 MG capsule, Take 300 mg by mouth 2 times daily. Protect from light, Disp: , Rfl: Objective Physical Examination: Vitals: Vitals Vitals: 09/16/22 1559 BP: 104/62 BP Location: Left arm Patient Position: Sitting BP Cuff Size: Adult Pulse: 78 SpO2: 98% Weight: 169 lb 12.8 oz (77 kg) Height: 5' 7 (1.702 m) Wt Readings from Last 3 Encounters: 09/16/22 169 lb 12.8 oz (77 kg) Body mass index is 26.59 kg/m?. Physical Exam Constitutional: Appearance: Normal appearance. HENT: Head: Normocephalic and atraumatic. Right Ear: External ear normal. Left Ear: External ear normal. Ears: Comments: FALSE PASS - wearing hearing aides Nose: Nose normal. Mouth/Throat: Mouth: Mucous membranes are moist. Eyes: General: Right eye: No discharge. Left eye: No discharge. Neck: Vascular: No carotid bruit. Cardiovascular: Rate and Rhythm: Normal rate and regular rhythm. Heart sounds: Normal heart sounds, S1 normal and S2 normal. No murmur heard. No gallop. No S3 or S4 sounds. Pulmonary: Effort: Pulmonary effort is normal. B (more content not included)... [facility] 09-17-2022 Telephone encounter Note Prep for proc complete. [facility] Work Phone: 09-17-2022 Miscellaneous Notes Prep for proc complete. PCI 09/20/2022 @ [address] Ayon Dx: CAD H&P 09/16/2022 (KS) EKG 09/08/2022 (media tab) CBC, BMP 09/08/2022 IVF 0.9% NSS @ KVO Benadryl 25 mg po 1 hour before Valium 5 mg po 1 hour before Left voicemail asking for return call to discuss procedure date/time and prep instructions. Dx: CAD Procedure: PCI Date/Time: 09/20/22 at 10am Surgeon: Caesar Location: [facility] Admission: OUTPATIENT documented in this encounter [facility] 09-17-2022 History and physical note Images from the original note were not included. 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 (HCC) +6 more Dx New Patient Shortness of Breath Chest Pain; Referred by Jasper Gee Reason for Visit Progress Notes Clayton Ayon MD (Physician) Cardiology Expand All Collapse All [facility] Cardiovascular Medicine [facility] [address] [facility] [address] Dept: [phone] Dept Loc: [phone] DATE of SERVICE: 09/16/22 TIME of SERVICE: 4:25 PM DATE of : 1935 PRIMARY CARE PHYSICIAN: Mariano Beltran Visit type: New patient Subjective Chief Complaint: Chief Complaint Patient presents with New Patient Consult for PCI Shortness of Breath Chest Pain History of Present Illness: Eben Pardo is a 86 y.o. male cardiac risk factors positive for hypertension, hyperlipidemia and family history of premature CAD. Negative for cigarette smoking or diabetes mellitus. Past medical history: Hard of hearing with hearing aids. August 2022 carotid duplex shows less than 50% stenoses bilaterally. He does have MARISOL but is intolerant of CPAP. He is a patient of Dr. Jasper Gee from [place]. Over the past several years he has been having complaints of midsternal chest discomfort with exertion. This is nonradiating. There is some associated dyspnea but no diaphoresis or nausea. Recently the symptoms have been accelerating. An exercise tolerance test was negative for ischemia. An echocardiogram demonstrated moderate aortic stenosis with good LV function. Cardiac catheterization by Dr. Gee has demonstrated significant discrete three-vessel disease. He also has a small first diagonal with ostial-proximal stenosis. These lesions are approachable percutaneously. I have reviewed the angiogram earlier this week and discussed with Dr. Gee. Given the patient's age, Dr. Gee and the patient preferred to proceed with percutaneous intervention rather than CABG. The patient was told of a heart murmur in the past. No prior history of GA, CVA, rheumatic fever. He thinks he may have had a TIA sometime in the remote past. No palpitations or syncope. No edema, orthopnea, PND. No bleeding or bruising. The patient has been taking aspirin [address] Gee has started him on Brilinta already. History and Review of Systems Past Medical History: Medical History Past Medical History: Diagnosis Date Aortic stenosis Bruit of left carotid artery Coronary artery disease Hyperlipidemia Hypertension MARISOL (obstructive sleep apnea) Past Surgical History Surgical History Past Surgical History: Procedure Laterality Date APPENDECTOMY CARDIAC CATHETERIZATION PROSTATE BIOPSY Allergies: Allergies Allergen Reactions Gabapentin Shortness of breath Meloxicam Sulfa Antibiotics Medications: Current Outpatient Medications: amLODIPine (Norvasc) 2.5 MG tablet, Take 2.5 mg by mouth daily., Disp: , Rfl: Ascorbic Acid (vitamin C) 250 MG tablet, Take 250 mg by mouth daily., Disp: , Rfl: aspirin 81 MG EC tablet, Take 81 mg by mouth daily., Disp: , Rfl: atorvastatin (Lipitor) 10 MG tablet, Take 10 mg by mouth Nightly., Disp: , Rfl: Brilinta 90 MG tablet, Take 90 mg by mouth 2 times daily., Disp: , Rfl: finasteride (Proscar) 5 MG tablet, Take 5 mg by mouth daily., Disp: , Rfl: fluticasone (Flonase) 50 MCG/ACT nasal spray, Administer 1 spray into each nostril daily. Shake gently. Before first use, prime pump. After use, clean tip and replace cap., Disp: , Rfl: Multiple Vitamins-Minerals (CENTRUM SILVER PO), Take by mouth., Disp: , Rfl: Multiple Vitamins-Minerals (PRESERVISION AREDS 2 PO), Take by mouth., Disp: , Rfl: omeprazole (PriLOSEC) [address] capsule, , Disp: , Rfl: raNITIdine (Zantac) 300 MG capsule, Take 300 mg by mouth 2 times daily. Protect from light, Disp: , Rfl: Objective Physical Examination: Vitals: Vitals Vitals: 09/16/22 1559 BP: 104/62 BP Location: Left arm Patient Position: Sitting BP Cuff Size: Adult Pulse: 78 SpO2: 98% Weight: 169 lb 12.8 oz (77 kg) Height: 5' 7 (1.702 m) Wt Readings from Last 3 Encounters: 09/16/22 169 lb 12.8 oz (77 kg) Body mass index is 26.59 kg/m . Physical Exam Constitutional: Appearance: Normal appearance. HENT: Head: Normocephalic and atraumatic. Right Ear: External ear normal. Left Ear: External ear normal. Ears: Comments: FALSE PASS - wearing hearing aides Nose: Nose normal. Mouth/Throat: Mouth: Mucous membranes are moist. Eyes: General: Right eye: No discharge. Left eye: No discharge. Neck: Vascular: No carotid bruit. Cardiovascular: Rate and Rhythm: Normal rate and regular rhythm. Heart sounds: Normal heart sounds, S1 normal and S2 normal. No murmur heard. No gallop. No S3 or S4 sounds. Pulmonary: Effort: Pulmonary effort is normal. Breath sounds: Normal breath sounds. Abdominal: General: Bowel sounds are normal. Palpations: Abdomen is soft. Tenderness: There is no abdominal tenderness. Musculoskeletal: General: No swelling or deformity. Cervical back: Neck supple. Right lower leg: No edema. Left lower leg: No edema. Skin: General: Skin is warm and dry. Coloration: Skin is not jaundiced. Neurological: Mental Status: He is alert and oriented to person, place, and time. Mental status is at baseline. Psychiatric: Mood and Affect: Mood normal. Behavior: Behavior normal. Data Reviewed Laboratory Tests: Lab Results Component Value Date WBC 10.3 09/08/2022 HGB 13.9 09/08/2022 HCT 42.9 09/08/2022 PLT 273 09/08/2022 Lab Results Component Value Date NA 141 09/08/2022 K 4.5 09/08/2022 BUN 20 09/08/2022 CREATININE 1.04 09/08/2022 Cardiac Tests: EC09/08/2022 Dr. Gee Last Echo: ([facility]) 08/05/2022 CONCLUSIONS: - Technically difficult exam due to body habitus. - Exam indication: Cardiac murmur - The left ventricle is small. Left ventricular systolic function is normal. EF = 54 5% (2D 4-ch.) Grade I left ventricular diastolic dysfunction. - The right ventricle is normal in size. Right ventricular systolic function is normal. - Tricuspid aortic valve. There is moderate aortic valve stenosis. AV area is 1.10 cm (0.56 cm /m ) by continuity, VTI. The peak gradient is 20 mmHg, the mean gradient is 11 mmHg and the dimensionless valve index is 0.29. Last Stress Test: No results found for this or any previous visit. Last Cardiac Catheterization: 09/13/2022 at [facility] by Dr. Gee Last EP Study: No results found for this or any previous visit. Radiology: CXR: No orders to display Assessment and Plan 1. Coronary artery disease involving [place] coronary artery of [place] heart with other form of angina pectoris (HCC) The patient has exertional angina and three-vessel disease. The angina has persisted despite good medical therapy. As noted above these lesions are approachable percutaneously. We have discussed possible snowplowing of cholesterol into a small diagonal branch. After shared decision making with the patient, , Dr. Gee and myself, the patient has opted for percutaneous intervention. He is already on aspirin and Brilinta. The indications, procedure, risks, benefits of the procedure including no treatment were explained to the patient who understood and wished to proceed. Consent has been obtained. Questions have been answered to the patient's satisfaction. 2. Moderate aortic stenosis Moderate aortic stenosis. The patient does not need TAVR at this point. Recommend echocardiogram follow-up every 1 to 2 years 3. Primary hypertension Blood pressure controlled 4. Mixed hyperlipidemia Followed by Dr. Gee. Will increase his atorvastatin up to 80 mg following the catheterization. 6. MARISOL (obstructive sleep apnea) Intolerant of CPAP 7. Family history of chronic ischemic heart disease Clayton yAon MD, PUMA, FACC, [facility] Interventional Cardiology Clinical Professor of Internal Medicine, [facility]-President, Medical Staff, [facility] Cardiology-[address] [address] p [phone] f [phone] [email or web address] Coronary Appropriate Use Criteria Coronary Presentation (select one): Worsening Angina History of CABG (select one): No Diabetes (select one): No Anginal Classification (CCS) within 2 weeks (select one): CCS III - Symptoms with everyday living activities, i.e. moderate limitation Anti-anginal Meds within 2 weeks (select all that apply): Yes: Calcium Channel Blockers, Aspirin, and Statin (Any) Stress or Imaging studies performed (select one), risk/extent of ischemia (select one if applicable): No, Unavailable Patient undergoing renal transplant or percutaneous valve procedure (select one): No [facility] Classificaton : 1 Frailty Score :3 [place] Protocol: No H+ P copied to chart from Dr. Ayon progress note dated 09/16/[address] Ayon. No contrast allergies, EKG under media tab. Creatinine is normal. [facility] Work Phone: 09-17-2022 History and physical note Images from the original note were not included. 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 (HCC) +6 more Dx New Patient Shortness of Breath Chest Pain; Referred by Jasper Gee Reason for Visit Progress Notes Clayton Ayon MD (Physician) Cardiology Expand All Collapse All [facility] Cardiovascular Medicine [address] [address] Dept: [phone] Dept Loc: [phone] DATE of SERVICE: 09/16/22 TIME of SERVICE: 4:25 PM DATE of : 1935 PRIMARY CARE PHYSICIAN: Mariano Beltran Visit type: New patient Subjective Chief Complaint: Chief Complaint Patient presents with New Patient Consult for PCI Shortness of Breath Chest Pain History of Present Illness: Eben Pardo is a 86 y.o. male cardiac risk factors positive for hypertension, hyperlipidemia and family history of premature CAD. Negative for cigarette smoking or diabetes mellitus. Past medical history: Hard of hearing with hearing aids. August 2022 carotid duplex shows less than 50% stenoses bilaterally. He does have MARISOL but is intolerant of CPAP. He is a patient of Dr. Jasper Gee from [place]. Over the past several years he has been having complaints of midsternal chest discomfort with exertion. This is nonradiating. There is some associated dyspnea but no diaphoresis or nausea. Recently the symptoms have been accelerating. An exercise tolerance test was negative for ischemia. An echocardiogram demonstrated moderate aortic stenosis with good LV function. Cardiac catheterization by Dr. Gee has demonstrated significant discrete three-vessel disease. He also has a small first diagonal with ostial-proximal stenosis. These lesions are approachable percutaneously. I have reviewed the angiogram earlier this week and discussed with Dr. Gee. Given the patient's age, Dr. Gee and the patient preferred to proceed with percutaneous intervention rather than CABG. The patient was told of a heart murmur in the past. No prior history of GA, CVA, rheumatic fever. He thinks he may have had a TIA sometime in the remote past. No palpitations or syncope. No edema, orthopnea, PND. No bleeding or bruising. The patient has been taking aspirin [address] Gee has started him on Brilinta already. History and Review of Systems Past Medical History: Medical History Past Medical History: Diagnosis Date Aortic stenosis Bruit of left carotid artery Coronary artery disease Hyperlipidemia Hypertension MARISOL (obstructive sleep apnea) Past Surgical History Surgical History Past Surgical History: Procedure Laterality Date APPENDECTOMY CARDIAC CATHETERIZATION PROSTATE BIOPSY Allergies: Allergies Allergen Reactions Gabapentin Shortness of breath Meloxicam Sulfa Antibiotics Medications: Current Outpatient Medications: amLODIPine (Norvasc) 2.5 MG tablet, Take 2.5 mg by mouth daily., Disp: , Rfl: Ascorbic Acid (vitamin C) 250 MG tablet, Take 250 mg by mouth daily., Disp: , Rfl: aspirin 81 MG EC tablet, Take 81 mg by mouth daily., Disp: , Rfl: atorvastatin (Lipitor) 10 MG tablet, Take 10 mg by mouth Nightly., Disp: , Rfl: Brilinta 90 MG tablet, Take 90 mg by mouth 2 times daily., Disp: , Rfl: finasteride (Proscar) 5 MG tablet, Take 5 mg by mouth daily., Disp: , Rfl: fluticasone (Flonase) 50 MCG/ACT nasal spray, Administer 1 spray into each nostril daily. Shake gently. Before first use, prime pump. After use, clean tip and replace cap., Disp: , Rfl: Multiple Vitamins-Minerals (CENTRUM SILVER PO), Take by mouth., Disp: , Rfl: Multiple Vitamins-Minerals (PRESERVISION AREDS 2 PO), Take by mouth., Disp: , Rfl: omeprazole (PriLOSEC) [address] capsule, , Disp: , Rfl: raNITIdine (Zantac) 300 MG capsule, Take 300 mg by mouth 2 times daily. Protect from light, Disp: , Rfl: Objective Physical Examination: Vitals: Vitals Vitals: 09/16/22 1559 BP: 104/62 BP Location: Left arm Patient Position: Sitting BP Cuff Size: Adult Pulse: 78 SpO2: 98% Weight: 169 lb 12.8 oz (77 kg) Height: 5' 7 (1.702 m) Wt Readings from Last 3 Encounters: 09/16/22 169 lb 12.8 oz (77 kg) Body mass index is 26.59 kg/m . Physical Exam Constitutional: Appearance: Normal appearance. HENT: Head: Normocephalic and atraumatic. Right Ear: External ear normal. Left Ear: External ear normal. Ears: Comments: FALSE PASS - wearing hearing aides Nose: Nose normal. Mouth/Throat: Mouth: Mucous membranes are moist. Eyes: General: Right eye: No discharge. Left eye: No discharge. Neck: Vascular: No carotid bruit. Cardiovascular: Rate and Rhythm: Normal rate and regular rhythm. Heart sounds: Normal heart sounds, S1 normal and S2 normal. No murmur heard. No gallop. No S3 or S4 sounds. Pulmonary: Effort: Pulmonary effort is normal. Breath sounds: Normal breath sounds. Abdominal: General: Bowel sounds are normal. Palpations: Abdomen is soft. Tenderness: There is no abdominal tenderness. Musculoskeletal: General: No swelling or deformity. Cervical back: Neck supple. Right lower leg: No edema. Left lower leg: No edema. Skin: General: Skin is warm and dry. Coloration: Skin is not jaundiced. Neurological: Mental Status: He is alert and oriented to person, place, and time. Mental status is at baseline. Psychiatric: Mood and Affect: Mood normal. Behavior: Behavior normal. Data Reviewed Laboratory Tests: Lab Results Component Value Date WBC 10.3 09/08/2022 HGB 13.9 09/08/2022 HCT 42.9 09/08/2022 PLT 273 09/08/2022 Lab Results Component Value Date NA 141 09/08/2022 K 4.5 09/08/2022 BUN 20 09/08/2022 CREATININE 1.04 09/08/2022 Cardiac Tests: EC09/08/2022 Dr. Gee Last Echo: ([facility]) 08/05/2022 CONCLUSIONS: - Technically difficult exam due to body habitus. - Exam indication: Cardiac murmur - The left ventricle is small. Left ventricular systolic function is normal. EF = 54 5% (2D 4-ch.) Grade I left ventricular diastolic dysfunction. - The right ventricle is normal in size. Right ventricular systolic function is normal. - Tricuspid aortic valve. There is moderate aortic valve stenosis. AV area is 1.10 cm (0.56 cm /m ) by continuity, VTI. The peak gradient is 20 mmHg, the mean gradient is 11 mmHg and the dimensionless valve index is 0.29. Last Stress Test: No results found for this or any previous visit. Last Cardiac Catheterization: 09/13/2022 at [facility] by Dr. Gee Last EP Study: No results found for this or any previous visit. Radiology: CXR: No orders to display Assessment and Plan 1. Coronary artery disease involving [place] coronary artery of [place] heart with other form of angina pectoris (HCC) The patient has exertional angina and three-vessel disease. The angina has persisted despite good medical therapy. As noted above these lesions are approachable percutaneously. We have discussed possible snowplowing of cholesterol into a small diagonal branch. After shared decision making with the patient, , Dr. Gee and myself, the patient has opted for percutaneous intervention. He is already on aspirin and Brilinta. The indications, procedure, risks, benefits of the procedure including no treatment were explained to the patient who understood and wished to proceed. Consent has been obtained. Questions have been answered to the patient's satisfaction. 2. Moderate aortic stenosis Moderate aortic stenosis. The patient does not need TAVR at this point. Recommend echocardiogram follow-up every 1 to 2 years 3. Primary hypertension Blood pressure controlled 4. Mixed hyperlipidemia Followed by Dr. Gee. Will increase his atorvastatin up to 80 mg following the catheterization. 6. MARISOL (obstructive sleep apnea) Intolerant of CPAP 7. Family history of chronic ischemic heart disease Clayton Ayon MD, PUMA, [facility], [facility] Interventional Cardiology Clinical Professor of Internal Medicine, [place] Past-President, Medical Staff, [facility] Cardiology-[address] [address] p [phone] f [phone] [email or web address] Coronary Appropriate Use Criteria Coronary Presentation (select one): Worsening Angina History of CABG (select one): No Diabetes (select one): No Anginal Classification (CCS) within 2 weeks (select one): CCS III - Symptoms with everyday living activities, i.e. moderate limitation Anti-anginal Meds within 2 weeks (select all that apply): Yes: Calcium Channel Blockers, Aspirin, and Statin (Any) Stress or Imaging studies performed (select one), risk/extent of ischemia (select one if applicable): No, Unavailable Patient undergoing renal transplant or percutaneous valve procedure (select one): No [facility] Classificaton : 1 Frailty Score :3 [place] Protocol: No H+ P copied to chart from Dr. Ayon progress note dated 09/16/[address] Ayon. No contrast allergies, EKG under media tab. Creatinine is normal. documented in this encounter [facility] 09-17-2022 Telephone encounter Note PCI 09/20/2022 @ [address] Ayon Dx: CAD H&P 09/16/2022 ([place]) EKG 09/08/2022 (media tab) CBC, BMP 09/08/2022 IVF 0.9% NSS @ KVO Benadryl 25 mg po 1 hour before Valium 5 mg po 1 hour before [facility] 09-16-2022 History of Presen t illness Narrative Images from the original note were not included. [facility] Cardiovascular Medicine [facility] [address] [facility] [address] Dept: [phone] Dept Loc: [phone] DATE of SERVICE: 09/16/22 TIME of SERVICE: 4:25 PM DATE of : 1935 PRIMARY CARE PHYSICIAN: Mariano Beltran Visit type: New patient Subjective Chief Complaint: Chief Complaint Patient presents with New Patient Consult for PCI Shortness of Breath Chest Pain History of Present Illness: Eben Pardo is a 86 y.o. male cardiac risk factors positive for hypertension, hyperlipidemia and family history of premature CAD. Negative for cigarette smoking or diabetes mellitus. Past medical history: Hard of hearing with hearing aids. August 2022 carotid duplex shows less than 50% stenoses bilaterally. He does have MAR[place] but is intolerant of CPAP. He is a patient of Dr. Jasper Gee from [place]. Over the past several years he has been having complaints of midsternal chest discomfort with exertion. This is nonradiating. There is some associated dyspnea but no diaphoresis or nausea. Recently the symptoms have been accelerating. An exercise tolerance test was negative for ischemia. An echocardiogram demonstrated moderate aortic stenosis with good LV function. Cardiac catheterization by Dr. Gee has demonstrated significant discrete three-vessel disease. He also has a small first diagonal with ostial-proximal stenosis. These lesions are approachable percutaneously. I have reviewed the angiogram earlier this week and discussed with Dr. Gee. Given the patient's age, Dr. Gee and the patient preferred to proceed with percutaneous intervention rather than CABG. The patient was told of a heart murmur in the past. No prior history of GA, CVA, rheumatic fever. He thinks he may have had a TIA sometime in the remote past. No palpitations or syncope. No edema, orthopnea, PND. No bleeding or bruising. The patient has been taking aspirin [address] Gee has started him on Brilinta already. History and Review of Systems Past Medical History: Past Medical History: Diagnosis Date Aortic stenosis Bruit of left carotid artery Coronary artery disease Hyperlipidemia Hypertension MARISOL (obstructive sleep apnea) Past Surgical History Past Surgical History: Procedure Laterality Date APPENDECTOMY CARDIAC CATHETERIZATION PROSTATE BIOPSY Allergies: Allergies Allergen Reactions Gabapentin Shortness of breath Meloxicam Sulfa Antibiotics Medications: Current Outpatient Medications: amLODIPine (Norvasc) 2.5 MG tablet, Take 2.5 mg by mouth daily., Disp: , Rfl: Ascorbic Acid (vitamin C) 250 MG tablet, Take 250 mg by mouth daily., Disp: , Rfl: aspirin 81 MG EC tablet, Take 81 mg by mouth daily., Disp: , Rfl: atorvastatin (Lipitor) 10 MG tablet, Take 10 mg by mouth Nightly., Disp: , Rfl: Brilinta 90 MG tablet, Take 90 mg by mouth 2 times daily., Disp: , Rfl: finasteride (Proscar) 5 MG tablet, Take 5 mg by mouth daily., Disp: , Rfl: fluticasone (Flonase) 50 MCG/ACT nasal spray, Administer 1 spray into each nostril daily. Shake gently. Before first use, prime pump. After use, clean tip and replace cap., Disp: , Rfl: Multiple Vitamins-Minerals (CENTRUM SILVER PO), Take by mouth., Disp: , Rfl: Multiple Vitamins-Minerals (PRESERVISION AREDS 2 PO), Take by mouth., Disp: , Rfl: omeprazole (PriLOSEC) [address] capsule, , Disp: , Rfl: raNITIdine (Zantac) 300 MG capsule, Take 300 mg by mouth 2 times daily. Protect from light, Disp: , Rfl: Objective Physical Examination: Vitals: Vitals: 09/16/22 1559 BP: 104/62 BP Location: Left arm Patient Position: Sitting BP Cuff Size: Adult Pulse: 78 SpO2: 98% Weight: 169 lb 12.8 oz (77 kg) Height: 5' 7 (1.702 m) Wt Readings from Last 3 Encounters: 09/16/22 169 lb 12.8 oz (77 kg) Body mass index is 26.59 kg/m . Physical Exam Constitutional: Appearance: Normal appearance. HENT: Head: Normocephalic and atraumatic. Right Ear: External ear normal. Left Ear: External ear normal. Ears: Comments: FALSE PASS - wearing hearing aides Nose: Nose normal. Mouth/Throat: Mouth: Mucous membranes are moist. Eyes: General: Right eye: No discharge. Left eye: No discharge. Neck: Vascular: No carotid bruit. Cardiovascular: Rate and Rhythm: Normal rate and regular rhythm. Heart sounds: Normal heart sounds, S1 normal and S2 normal. No murmur heard. No gallop. No S3 or S4 sounds. Pulmonary: Effort: Pulmonary effort is normal. Breath sounds: Normal breath sounds. Abdominal: General: Bowel sounds are normal. Palpations: Abdomen is soft. Tenderness: There is no abdominal tenderness. Musculoskeletal: General: No swelling or deformity. Cervical back: Neck supple. Right lower leg: No edema. Left lower leg: No edema. Skin: General: Skin is warm and dry. Coloration: Skin is not jaundiced. Neurological: Mental Status: He is alert and oriented to person, place, and time. Mental status is at baseline. Psychiatric: Mood and Affect: Mood normal. Behavior: Behavior normal. Data Reviewed Laboratory Tests: Lab Results Component Value Date WBC 10.3 09/08/2022 HGB 13.9 09/08/2022 HCT 42.9 09/08/2022 PLT 273 09/08/2022 Lab Results Component Value Date NA 141 09/08/2022 K 4.5 09/08/2022 BUN 20 09/08/2022 CREATININE 1.04 09/08/2022 Cardiac Tests: EC09/08/2022 Dr. Gee Last Echo: ([facility]) 08/05/2022 CONCLUSIONS: - Technically difficult exam due to body habitus. - Exam indication: Cardiac murmur - The left ventricle is small. Left ventricular systolic function is normal. EF = 54 5% (2D 4-ch.) Grade I left ventricular diastolic dysfunction. - The right ventricle is normal in size. Right ventricular systolic function is normal. - Tricuspid aortic valve. There is moderate aortic valve stenosis. AV area is 1.10 cm (0.56 cm /m ) by continuity, VTI. The peak gradient is 20 mmHg, the mean gradient is 11 mmHg and the dimensionless valve index is 0.29. Last Stress Test: No results found for this or any previous visit. Last Cardiac Catheterization: 09/13/2022 at [facility] by Dr. Gee Last EP Study: No results found for this or any previous visit. Radiology: CXR: No orders to display Assessment and Plan 1. Coronary artery disease involving [place] coronary artery of [place] heart with other form of angina pectoris (HCC) The patient has exertional angina and three-vessel disease. The angina has persisted despite good medical therapy. As noted above these lesions are approachable percutaneously. We have discussed possible snowplowing of cholesterol into a small diagonal branch. After shared decision making with the patient, , Dr. Gee and myself, the patient has opted for percutaneous intervention. He is already on aspirin and Brilinta. The indications, procedure, risks, benefits of the procedure including no treatment were explained to the patient who understood and wished to proceed. Consent has been obtained. Questions have been answered to the patient's satisfaction. 2. Moderate aortic stenosis Moderate aortic stenosis. The patient does not need TAVR at this point. Recommend echocardiogram follow-up every 1 to 2 years 3. Primary hypertension Blood pressure controlled 4. Mixed hyperlipidemia Followed by Dr. Gee. Will increase his atorvastatin up to 80 mg following the catheterization. 6. MARIS[place] (obstructive sleep apnea) Intolerant of CPAP 7. Family history of chronic ischemic heart disease Clayton Ayon MD, PUMA, FAC, [facility] Interventional Cardiology Clinical Professor of Internal Medicine, [facility]-President, Medical Staff, [facility] Cardiology[address] [address] p [phone] f [phone] [email or web address] Disclaimer Captured images seen in this note from are not a substitute for a comprehensive interpretation of the entire data set as reflected by the interpreting physician with regard to radiology, echocardiography, and other diagnostic images. This note may have been dictated using [employer] Edition 2.6 and/or [employer] Voice Recognition Feature. The document was proofread, however unrecognized voice recognition stakeholder manager errors may be present. documented in this encounter [facility] 09-16-2022 Instructions Eloisa Chavez RN - 09/16/2022 4:15 PM EDT Images from the original note were not included. [facility] CARDIOLOGY [address] [place] [phone] Dept: [phone] Dept You are scheduled for [facility] with Dr. Clayton Ayon on 09/20/2022 at 10 am Report to [address] by 830 am You can park in the [address] De[address] or use [employer] parking (for a nominal fee of $7-8) and enter the hospital using the [address] entrance across from the parking deck You will need a designated fast food delivery driver for the day of your procedure to take you home. You will not be able to drive 24-72 hours after the procedure Nothing to eat or drink after midnight Please take your am medications with sips of water prior to leaving for the hospital. Please take your Aspirin and Brilinta as usual before leaving for the hospital. Please call the office if you have any questions. The following attachments cannot be sent through Care Everywhere.Coronary Artery Disease (Brazilian)Angina (Brazilian)Coronary Angioplasty (Brazilian)documented in this encounter [facility] 09-16-2022 Note Left voicemail askin g for return call to discuss procedure date/time and prep instructions. [facility] 09-16-2022 Note Dx: CAD Procedure: PCI Date/Time: 09/20/22 at 10am Surgeon: Caesar Location: [facility] Admission: OUTPATIENT [facility] 09-16-2022 Note Chart abstracted for cardiac procedure. [facility] 09-16-2022 Telephone encounter Note Left voicemail asking for return call to discuss procedure date/time and prep instructions. [facility] 09-16-2022 Telephone encounter Note Dx: CAD Procedure: PCI Date/Time: 09/20/22 at 10am Surgeon: Caesar Location: [facility] Admission: OUTPATIENT [facility] 08-19-2022 Note HNO ID: [id number] Author: Ana M Gonzalez LPN Service: ? Author Type: ? Type: Progress Notes Filed: 08/19/2022 3:21 PM Note Text: Patient was seen in office by Dr. Beltran, 08/19/2022. Referred to Cardiology, Dr. Gee. Ana M Gonzalez LPN [facility] 08-19-2022 Note HNO ID: [id number] Author: Mariano Beltran MD Service: ? Author Type: Physician Type: Progress Notes Filed: 08/19/2022 2:03 PM Note Text: This note was created using [employer]. Subjective Patient presents with: Discussion Eben Pardo is a 86 year old male here with his . He had complained of dyspnea on exertion and decreased exercise tolerance. His echo showed moderate aortic stenosis, and I recommended cardiology. He may have vague chest pains as well. He had an episode of numbness of the left mouth corner, left leg weakness and gait disturbance that lasted a few hours. He did not seek medical attention and told his hours after his symptoms resolved. This was sort of associated with upper back pain. He cracked his neck with improvement of the pains in his upper back. He had not tried Flexeril as he was concerned about potential side effects. Review of Systems Constitutional: Negative for fever. Eyes: Negative for visual disturbance. Cardiovascular: Negative for palpitations and leg swelling. Gastrointestinal: Negative. Genitourinary: Negative. Musculoskeletal: Positive for back pain. Neurological: Negative for dizziness, speech difficulty, weakness, light-headedness and headaches. ACTIVE PROBLEM LIST Bph With Obstruction/Lower Urinary Tract Symptoms Gout, Unspecified Actinic Keratosis (Premalignant AK) Allergic Rhinitis Hearing Loss of Both Ears Hyperlipidemia Ddd (Degenerative Disc Disease), Lumbar Gerd (Gastroesophageal Reflux Disease) Sleep Apnea, Obstructive Abnormal Lung Sounds Essential Hypertension Impaired Fasting Blood Sugar Nonrheumatic Aortic Valve Stenosis Current Outpatient Medications Medication Sig cyclobenzaprine (FLEXERIL) 10 mg tablet Take 1 tablet by mouth twice daily as needed for muscle spasm. amLODIPine (NORVASC) 2.5 mg tablet Take 1 tablet by mouth once daily. atorvastatin (LIPITOR) 10 mg tablet Take 1 tablet by mouth daily at bedtime. finasteride (PROSCAR) 5 mg tablet Take 1 tablet by mouth once daily. omeprazole (PRILOSEC) 20 mg capsule Take 1 capsule by mouth once daily. acetaminophen (TYLENOL EXTRA STRENGTH ORAL) Take 1 tablet by mouth as needed. ketoconazole (NIZORAL) 2 % shampoo WASH FACE AND EARS - AND LET SIT FOR 5 MINUTES as directed ALTERN... (REFER TO PRESCRIPTION NOTES). fluticasone 50 mcg/actuation nasal spray Use 2 Sprays in each nostril once daily as needed for Cold/Allergy Symptoms. Rinse mouth after use. VIT C/DL-E AC/LUT/COPPER/ZNOX (PRESERVISION ORAL) Take 1 Each by mouth once daily. Sodium Chloride (OCEAN NASAL) 0.65 % NASAL [facility] Current Facility-Administered Medications Medication Dose Route Frequency perflutren lipid microspheres 1.3 mL in NaCl (PF) 0.9% 10 mL injection (DEFINITY) INTRAVENOUS DIRECTED PRN sodium chloride 0.9 % (flush) 10 mL (BD POSIFLUSH) 10 mL INTRAVENOUS DIRECTED PRN Objective BP 118/62 (BP Site: Left Arm, BP Position: Sitting, BP Cuff Size: Large Adult) Pulse (!) 52 Resp 12 Wt 78.9 kg (174 lb) BMI 26.77 kg/m? Physical Exam Constitutional: General: He is not in acute distress. Appearance: He is not ill-appearing or diaphoretic. HENT: Head: Normocephalic. Eyes: Extraocular Movements: Extraocular movements intact. Conjunctiva/sclera: Conjunctivae normal. Neck: Vascular: Carotid bruit present. Comments: Left carotid bruit. Cardiovascular: Rate and Rhythm: Normal rate and regular rhythm. Pulses: Normal pulses. Heart sounds: S1 normal and S2 normal. Murmur heard. Systolic murmur is present with a grade of 1/6. Comments: ULSB Pulmonary: Breath sounds: Examination of the right-lower field reveals rales. Examination of the left-lower field reveals rales. Rales present. Musculoskeletal: Cervical back: Neck supple. No tenderness. Thoracic back: No deformity, spasms or tenderness. Lumbar back: No deformity or tenderness. Right lower leg: No edema. Left lower leg: No edema. Lymphadenopathy: Cervical: No cervical adenopathy. Neurological: General: No focal deficit present. Mental Status: He is alert and oriented to person, place, and time. Cranial Nerves: No cranial nerve deficit. Sensory: No sensory deficit. Motor: No weakness. Coordination: Coordination normal. Gait: Gait normal. Deep Tendon Reflexes: Reflexes normal. Assessment and Plan 1. Nonrheumatic aortic valve stenosis - ICD9: 424.1, ICD10: I35.0 (primary diagnosis) Shared medical decision was made at length. We agreed to refer to the local [facility]. - CONSULT TO CARDIOLOGY 2. Dyspnea on exertion - ICD9: 786.09, ICD10: R06.09 See above. - CONSULT TO CARDIOLOGY 3. Transient neurological symptoms - ICD9: 781.99, ICD10: R29.818 We discussed TIA. If symptoms recur, he was advised ER evaluation. - US CAROTID ARTERIES AMANDEEP VAS LAB 4. Bruit of left carotid artery - ICD9: 785.9, ICD10: R09.89 - US CAROTID ARTERIES [facility]ANDEEP [facility]AS [facility] 5. Ab (more content not included)... [facility] 08-13-2022 Note HNO ID: [id number] Author: Cathy Elkins LPN Service: ? Author Type: ? Type: Progress Notes Filed: 08/19/2022 3:21 PM Note Text: Message left to pt to return call to a nurse or review the my chart message. [facility] 08-13-2022 Miscellaneous Notes Patients given results of Echo. They will call back with decision on elevator service mechanic. documented in this encounter [facility] 08-13-2022 Note HNO ID: [id number] Author: Mariano Beltran MD Service: ? Author Type: Physician Type: Progress Notes Filed: 08/19/2022 3:21 PM Note Text: ASSESSMENT/PLAN: 1. Nonrheumatic aortic valve stenosis - ICD9: 424.1, ICD10: I35.0 (primary diagnosis) - CONSULT TO CARDIOLOGY 2. Heart murmur - ICD9: 785.2, ICD10: R01.1 Echo results viewed by patient. MC message inactive. Please inform the patient. Mariano Beltran MD [facility] 07-22-2022 Note HNO ID: [id number] Author: Mariano Beltran MD Service: ? Author Type: Physician Type: Progress Notes Filed: 07/22/2022 10:28 AM Note Text: This note was created using [email or web address]. Subjective Eben Pardo is a 86 year old male. He generally felt well. He may have some increased fatigability and dyspnea on exertion over the past year. He outright was not interested in having a stress test. Main concerns were chronic foot, leg cramps, not related to activity, ongoing for years, on average once a week, most at night. Other concern was new onset lump of the right forearm. Review of Systems Constitutional: Positive for fatigue. Negative for appetite change and unexpected weight change. HENT: Negative. Respiratory: Positive for chest tightness and shortness of breath. Cardiovascular: Negative for chest pain, palpitations and leg swelling. Gastrointestinal: Negative for constipation. Genitourinary: Negative for difficulty urinating. Musculoskeletal: Negative. Neurological: Negative. ACTIVE PROBLEM LIST Bph With Obstruction/Lower Urinary Tract Symptoms Gout, Unspecified Actinic Keratosis (Premalignant AK) Allergic Rhinitis Hearing Loss of Both Ears Hyperlipidemia Ddd (Degenerative Disc Disease), Lumbar Gerd (Gastroesophageal Reflux Disease) Sleep Apnea, Obstructive Abnormal Lung Sounds Essential Hypertension Impaired Fasting Blood Sugar Current Outpatient Medications Medication Sig TERBINAFINE HCL ORAL Take by mouth. 2 day for 1 week for 1 month amLODIPine (NORVASC) 2.5 mg tablet Take 1 tablet by mouth once daily. atorvastatin (LIPITOR) 10 mg tablet Take 1 tablet by mouth daily at bedtime. finasteride (PROSCAR) 5 mg tablet Take 1 tablet by mouth once daily. omeprazole (PRILOSEC) 20 mg capsule Take 1 capsule by mouth once daily. acetaminophen (TYLENOL EXTRA STRENGTH ORAL) Take 1 tablet by mouth as needed. ketoconazole (NIZORAL) 2 % shampoo WASH FACE AND EARS - AND LET SIT FOR 5 MINUTES as directed ALTERN... (REFER TO PRESCRIPTION NOTES). fluticasone 50 mcg/actuation nasal spray Use 2 Sprays in each nostril once daily as needed for Cold/Allergy Symptoms. Rinse mouth after use. VIT C/DL-E AC/LUT/COPPER/ZNOX (PRESERVISION ORAL) Take 1 Each by mouth once daily. Sodium Chloride (OCEAN NASAL) 0.65 % NASAL [facility] No current facility-administered medications for this visit. Objective BP 124/68 (BP Site: Left Arm, BP Position: Sitting, BP Cuff Size: Large Adult) Pulse (!) 56 Resp 12 Ht 171.7 cm (5' 7.6 ) Wt 79.8 kg (176 lb) BMI 27.08 kg/m? Physical Exam HENT: Head: Normocephalic. Cardiovascular: Pulses: Normal pulses. Heart sounds: S1 normal and S2 normal. Murmur heard. Systolic murmur is present with a grade of 1/6. Comments: Murmur at the base, ULSB. Pulmonary: Effort: No respiratory distress. Breath sounds: Examination of the right-lower field reveals rales. Examination of the left-lower field reveals rales. Rales present. No wheezing. Comments: No O2 desaturation with ambulation. Musculoskeletal: General: No tenderness. Right lower leg: No edema. Left lower leg: No edema. Skin: Comments: <1cm cyst of right proximal forearm, non tender, mobile. Neurological: Mental Status: He is alert. Gait: Gait normal. Psychiatric: Mood and Affect: Mood normal. WBC 3.70 - 11.00 k/uL 8.86 RBC 4.20 - 6.00 m/uL 4.66 Hemoglobin 13.0 - 17.0 g/dL 14.5 Hematocrit 39.0 - 51.0 % 43.4 MCV 80.0 - 100.0 fL 93.1 MCH 26.0 - 34.0 pg 31.1 MCHC 30.5 - 36.0 g/dL 33.4 RDW-CV 11.5 - 15.0 % 13.6 Platelet Count 150 - 400 k/uL 257 MPV 9.0 - 12.7 fL 9.6 Absolute nRBC <0.01 k/uL <0.01 Hemoglobin A1C 4.3 - 5.6 % 5.7 (H) Estimated Average Glucose mg/dL 117 EKG RESULTS: sinus bradycardia Assessment and Plan 1. Medicare annual wellness visit, subsequent - ICD9: V70.0, ICD10: Z00.00 (primary diagnosis) See wellness. - DEPRESSION SCREENING/ASSESSMENT - ADVANCE CARE PLAN DISCUSSION 2. Foot cramps - ICD9: 729.82, ICD10: R25.2 Discussed medication dosage, usage, goals of therapy, and side effects. - CYCLOBENZAPRINE 10 MG TABLET 3. Cyst, dermoid, arm, right - ICD9: 216.6, ICD10: D36.7 Reassured. Observe. He can discuss with his sleep lab technologist as well. 4. Impaired fasting blood sugar - ICD9: 790.21, ICD10: R73.01 Stable. 5. Abnormal lung sounds - ICD9: 786.7, ICD10: R09.89 Chronic. 6. Heart murmur - ICD9: 785.2, ICD10: R01.1 Reevaluate. Further recommendations will depend on results. - PERFLUTREN LIPID MICROSPHERES 1.1 MG/ML INJECTION IN NS 10 ML - SODIUM CHLORIDE 0.9 % (FLUSH) INJECTION SYRINGE - ECHO 7. Hyperlipidemia, unspecified hyperlipidemia type - ICD9: 272.4, ICD10: E78.5 - good control - Continue current medication. - COMP METABOLIC PANEL - LIPID PANEL BASIC Mariano Beltran MD [facility] 07-22-2022 Note HNO ID: [id number] Author: Mariano Beltran MD Service: ? Author Type: Physician Type: Progress Notes Filed: 07/22/2022 10:28 AM Note Text: Medicare Yearly Visit Medical B eligibilty date not available. Date of last exam NA PAST MEDICAL HISTORY Diagnosis Date History of Malignant Neoplasm of Skin: BCC AND SCC 09/11/2009 Allergic rhinitis 09/18/2009 Dr. Mccormack, immunotherapy. 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 Cervicalgia 11/29/2005 Chronic prostatitis 01/02/2013 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 Diverticulosis of colon 06/28/2001 Tortuous colon ELEVATED PROSTATE SPECIFIC ANTIGEN 10/19/2007 PSA 3.8 in 11-17, 4.7 in 06-19, 4.3 in 09-19: Malgieri rec routine follow up Environmental allergies Essential hypertension 10/08/2019 Gastritis 08/13/1999 GENERAL OSTEOARTHROSIS 11/29/2005 GOUT NOS 09/03/2008 Uric acid 5.8 in 08-20, 7.9 in 10-20 (during acute attack) Hearing loss of both ears 01/07/2014 Hypertrophy of prostate with urinary obstruction and other lower urinary tract symptoms (LUTS) 10/19/2007 Lumbago 09/03/2008 MRI : small central herniation at L4-5, mild DDD L4-5 and L5-S1 Rec Tylenol and PT in 08-20: need to review old MRI and consider spinal stenosis Reviewed the importance of weight loss as of 08-20 Periodic limb movement disorder (PLMD) 07/19/2007 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 I'm not using it anymore. Snoring PAST SURGICAL HISTORY Procedure Laterality Date APPENDECTOMY 1945 COLONOSCOPY 08/21/2018 COLONOSCOPY FLX DX W/COLLJ SPEC WHEN PFRMD 06/28/2001 Colonoscopy ESOPHAGOGASTRODUODENOSCOPY TRANSORAL DIAGNOSTIC 08/02/2001 EGD ESOPHAGOGASTRODUODENOSCOPY TRANSORAL DIAGNOSTIC 12/15/2015 EGD PAST SURGICAL HISTORY OF 2010 cysts, skin lesions, basal cell cancer PROSTATE BIOPSY August 2012 ALLERGIES: Gabapentin, Mobic [Meloxicam], and Sulfa (Sulfonamide Antibiotics) Medications reviewed: Yes FAMILY HISTORY Problem Relation Age of Onset Heart Father [place] age 60s Cancer Mother Pt states does not remember type Prostate Cancer Brother GI Sister gastrectomy Cancer Sister stomach cancer other (fibromyalgia) Sister No Known Problems Other Lung disease SOCIAL HISTORY: Social History Tobacco Use Smoking status: Never Smokeless tobacco: Never Tobacco comments: No smoking in childhood home. 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 He watches his diet for sodium, low fat and low cholesterol most of the time. List of current specialists seen: Dr. Jayjay Kim, dermatology. Dr. Lester Bailey, ophthalmology. Dr. Mccormack, ENT. End of Live Planning discussed including patients advanced directive wishes: Yes I am willing to follow Eben's advanced directives. Copy needed. PHQ-2 / Depression screen He in the past two weeks denies having felt down, depressed, hopeless, or with little interest or pleasure in doing things. Functional Ability/Safety Screen 1. Was the patient's timed Up and Go test unsteady or longer than 30 seconds? No 2. Does the patient need help with the phone, transportation, shopping,preparing meals, housework, laundry, medications or managing money? No 3. Does your home have rugs in the hallway, lack of grab bars in the bathroom, lack of handrails on the stairs or have poor lighting? No Hearing Evaluation: wears hearing aids PHYSICAL EXAM BP 124/68 (BP Site: Left Arm, BP Position: Sitting, BP Cuff Size: Large Adult) Pulse (!) 56 Resp 12 Ht 171.7 cm (5' 7.6 ) Wt 79.8 kg (176 lb) BMI 27.08 kg/m? Alert and oriented X 3: YES Body mass index is 27.08 kg/m?. Visual acuity: OD: 20/25 OS: 20/ 25 OU: 20/25 The Mini Cog(c): Word recall=3/3 + Clock drawing=1/2=4/5. (<3 is positive). 3 ASSESSMENT/PLAN: 86 year old male The following prevention plan was discussed during the office visit and provided to the patient: - Counseled on healthy diet and regular exercise - Discussed need for and benefit of weight loss. BMI 27.08 kg/(m2) - Fall avoidance - Depression screening Mariano Beltran MD [facility] 07-22-2022 Miscellaneous Notes Addended by: MARIANO BELTRAN on: 07/22/2022 11:01 AM Modules accepted: Orders documented in this encounter [facility] 07-22-2022 History of Presen t illness Narrative This note was created using [employer]. Subjective Eben Pardo is a 86 year old male. He generally felt well. He may have some increased fatigability and dyspnea on exertion over the past year. He outright was not interested in having a stress test. Main concerns were chronic foot, leg cramps, not related to activity, ongoing for years, on average once a week, most at night. Other concern was new onset lump of the right forearm. Review of Systems Constitutional: Positive for fatigue. Negative for appetite change and unexpected weight change. HENT: Negative. Respiratory: Positive for chest tightness and shortness of breath. Cardiovascular: Negative for chest pain, palpitations and leg swelling. Gastrointestinal: Negative for constipation. Genitourinary: Negative for difficulty urinating. Musculoskeletal: Negative. Neurological: Negative. ACTIVE PROBLEM LIST Bph With Obstruction/Lower Urinary Tract Symptoms Gout, Unspecified Actinic Keratosis (Premalignant AK) Allergic Rhinitis Hearing Loss of Both Ears Hyperlipidemia Ddd (Degenerative Disc Disease), Lumbar Gerd (Gastroesophageal Reflux Disease) Sleep Apnea, Obstructive Abnormal Lung Sounds Essential Hypertension Impaired Fasting Blood Sugar Current Outpatient Medications Medication Sig TERBINAFINE HCL ORAL Take by mouth. 2 day for 1 week for 1 month amLODIPine (NORVASC) 2.5 mg tablet Take 1 tablet by mouth once daily. atorvastatin (LIPITOR) 10 mg tablet Take 1 tablet by mouth daily at bedtime. finasteride (PROSCAR) 5 mg tablet Take 1 tablet by mouth once daily. omeprazole (PRILOSEC) 20 mg capsule Take 1 capsule by mouth once daily. acetaminophen (TYLENOL EXTRA STRENGTH ORAL) Take 1 tablet by mouth as needed. ketoconazole (NIZORAL) 2 % shampoo WASH FACE AND EARS - AND LET SIT FOR 5 MINUTES as directed ALTERN... (REFER TO PRESCRIPTION NOTES). fluticasone 50 mcg/actuation nasal spray Use 2 Sprays in each nostril once daily as needed for Cold/Allergy Symptoms. Rinse mouth after use. VIT C/DL-E AC/LUT/COPPER/ZNOX (PRESERVISION ORAL) Take 1 Each by mouth once daily. Sodium Chloride (OCEAN NASAL) 0.65 % NASAL [facility] No current facility-administered medications for this visit. Objective BP 124/68 (BP Site: Left Arm, BP Position: Sitting, BP Cuff Size: Large Adult) Pulse (!) 56 Resp 12 Ht 171.7 cm (5' 7.6 ) Wt 79.8 kg (176 lb) BMI 27.08 kg/m Physical Exam HENT: Head: Normocephalic. Cardiovascular: Pulses: Normal pulses. Heart sounds: S1 normal and S2 normal. Murmur heard. Systolic murmur is present with a grade of 1/6. Comments: Murmur at the base, ULSB. Pulmonary: Effort: No respiratory distress. Breath sounds: Examination of the right-lower field reveals rales. Examination of the left-lower field reveals rales. Rales present. No wheezing. Comments: No O2 desaturation with ambulation. Musculoskeletal: General: No tenderness. Right lower leg: No edema. Left lower leg: No edema. Skin: Comments: <1cm cyst of right proximal forearm, non tender, mobile. Neurological: Mental Status: He is alert. Gait: Gait normal. Psychiatric: Mood and Affect: Mood normal. WBC 3.70 - 11.00 k/uL 8.86 RBC 4.20 - 6.00 m/uL 4.66 Hemoglobin 13.0 - 17.0 g/dL 14.5 Hematocrit 39.0 - 51.0 % 43.4 MCV 80.0 - 100.0 fL 93.1 MCH 26.0 - 34.0 pg 31.1 MCHC 30.5 - 36.0 g/dL 33.4 RDW-CV 11.5 - 15.0 % 13.6 Platelet Count 150 - 400 k/uL 257 MPV 9.0 - 12.7 fL 9.6 Absolute nRBC <0.01 k/uL <0.01 Hemoglobin A1C 4.3 - 5.6 % 5.7 (H) Estimated Average Glucose mg/dL 117 EKG RESULTS: sinus bradycardia Assessment and Plan 1. Medicare annual wellness visit, subsequent - ICD9: V70.0, ICD10: Z00.00 (primary diagnosis) See wellness. - DEPRESSION SCREENING/ASSESSMENT - ADVANCE CARE PLAN DISCUSSION 2. Foot cramps - ICD9: 729.82, ICD10: R25.2 Discussed medication dosage, usage, goals of therapy, and side effects. - CYCLOBENZAPRINE 10 MG TABLET 3. Cyst, dermoid, arm, right - ICD9: 216.6, ICD10: D36.7 Reassured. Observe. He can discuss with his sleep lab technologist as well. 4. Impaired fasting blood sugar - ICD9: 790.21, ICD10: R73.01 Stable. 5. Abnormal lung sounds - ICD9: 786.7, ICD10: R09.89 Chronic. 6. Heart murmur - ICD9: 785.2, ICD10: R01.1 Reevaluate. Further recommendations will depend on results. - PERFLUTREN LIPID MICROSPHERES 1.1 MG/ML INJECTION IN NS 10 ML - SODIUM CHLORIDE 0.9 % (FLUSH) INJECTION SYRINGE - ECHO 7. Hyperlipidemia, unspecified hyperlipidemia type - ICD9: 272.4, ICD10: E78.5 - good control - Continue current medication. - COMP METABOLIC PANEL - LIPID PANEL BASIC Mariano Beltran MD Medicare Yearly Visit Medical B eligibilty date not available. Date of last exam NA PAST MEDICAL HISTORY Diagnosis Date History of Malignant Neoplasm of Skin: BCC & SCC 09/11/2009 Allergic rhinitis 09/18/2009 Dr. Mccormack, immunotherapy. 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 Cervicalgia 11/29/2005 Chronic prostatitis 01/02/2013 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 Diverticulosis of colon 06/28/2001 Tortuous colon ELEVATED PROSTATE SPECIFIC ANTIGEN 10/19/2007 PSA 3.8 in 11-17, 4.7 in 06-19, 4.3 in 09-19: Malgieri rec routine follow up Environmental allergies Essential hypertension 10/08/2019 Gastritis 08/13/1999 GENERAL OSTEOARTHROSIS 11/29/2005 GOUT NOS 09/03/2008 Uric acid 5.8 in 08-20, 7.9 in 10-20 (during acute attack) Hearing loss of both ears 01/07/2014 Hypertrophy of prostate with urinary obstruction and other lower urinary tract symptoms (LUTS) 10/19/2007 Lumbago 09/03/2008 MRI : small central herniation at L4-5, mild DDD L4-5 and L5-S1 Rec Tylenol and PT in 08-20: need to review old MRI and consider spinal stenosis Reviewed the importance of weight loss as of 08-20 Periodic limb movement disorder (PLMD) 07/19/2007 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 I'm not using it anymore. Snoring PAST SURGICAL HISTORY Procedure Laterality Date APPENDECTOMY 194 COLONOSCOPY 08/21/2018 COLONOSCOPY FLX DX W/COLLJ SPEC WHEN PFRMD 06/28/2001 Colonoscopy ESOPHAGOGASTRODUODENOSCOPY TRANSORAL DIAGNOSTIC 08/02/2001 EGD ESOPHAGOGASTRODUODENOSCOPY TRANSORAL DIAGNOSTIC 12/15/2015 EGD PAST SURGICAL HISTORY OF 2010 cysts, skin lesions, basal cell cancer PROSTATE BIOPSY August 2012 ALLERGIES: Gabapentin, Mobic [Meloxicam], and Sulfa (Sulfonamide Antibiotics) Medications reviewed: Yes FAMILY HISTORY Problem Relation Age of Onset Heart Father [place] age 60s Cancer Mother Pt states does not remember type Prostate Cancer Brother GI Sister gastrectomy Cancer Sister stomach cancer other (fibromyalgia) Sister No Known Problems Other Lung disease SOCIAL HISTORY: Social History Tobacco Use Smoking status: Never Smokeless tobacco: Never Tobacco comments: No smoking in childhood home. 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 He watches his diet for sodium, low fat and low cholesterol most of the time. List of current specialists seen: Dr. Jayjay Kim, dermatology. Dr. Lester Bailey, ophthalmology. Dr. Mccormack, ENT. End of Live Planning discussed including patients advanced directive wishes: Yes I am willing to follow Eben's advanced directives. Copy needed. PHQ-2 / Depression screen He in the past two weeks denies having felt down, depressed, hopeless, or with little interest or pleasure in doing things. Functional Ability/Safety Screen 1. Was the patient's timed Up and Go test unsteady or longer than 30 seconds? No 2. Does the patient need help with the phone, transportation, shopping,preparing meals, housework, laundry, medications or managing money? No 3. Does your home have rugs in the hallway, lack of grab bars in the bathroom, lack of handrails on the stairs or have poor lighting? No Hearing Evaluation: wears hearing aids PHYSICAL EXAM BP 124/68 (BP Site: Left Arm, BP Position: Sitting, BP Cuff Size: Large Adult) Pulse (!) 56 Resp 12 Ht 171.7 cm (5' 7.6 ) Wt 79.8 kg (176 lb) BMI 27.08 kg/m Alert and oriented X 3: YES Body mass index is 27.08 kg/m . Visual acuity: OD: 20/25 OS: 20/ 25 OU: 20/25 The Mini Cog(c): Word recall=3/3 + Clock drawing=1/2=4/5. (<3 is positive). 3 ASSESSMENT/PLAN: 86 year old male The following prevention plan was discussed during the office visit and provided to the patient: - Counseled on healthy diet and regular exercise - Discussed need for and benefit of weight loss. BMI 27.08 kg/(m^2) - Fall avoidance - Depression screening Mariano Beltran MD documented in this encounter [facility] 07-13-2022 Miscellaneous Notes Spouse [facility] stating that Dr. Ayon did surgery and cardiac rehab order was to be sent to [facility]. States order not received. Faxed rehab order and office note to [facility] documented in this encounter [facility] 01-20-2022 Instructions Mariano Beltran MD - 01/20/2022 11:02 AM EST TAKE CLARITIN (LORATADINE) without decongestant daily for 2 months. documented in this encounter [facility] 01-20-2022 History of Presen t illness Narrative This note was created using [employer]. Subjective Eben Pardo is a 86 year old male. He felt well in general. We reviewed his labs. 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 The past few weeks, he had transient neck and headache with significant coughing or sneezing. He went to [facility] and was told to use Sinex for drainage. He stopped drinking soda and was losing weight. He still liked salting his food. Review of Systems Constitutional: Negative. HENT: Positive for congestion, postnasal drip and sneezing. Respiratory: Negative. Cardiovascular: Negative. Gastrointestinal: Negative. Musculoskeletal: Negative. Neurological: Positive for headaches. Negative for dizziness, facial asymmetry and weakness. ACTIVE PROBLEM LIST Bph With Obstruction/Lower Urinary Tract Symptoms Gout, Unspecified Actinic Keratosis (Premalignant AK) Allergic Rhinitis Hearing Loss of Both Ears Hyperlipidemia Ddd (Degenerative Disc Disease), Lumbar Gerd (Gastroesophageal Reflux Disease) Sleep Apnea, Obstructive Abnormal Lung Sounds Essential Hypertension Impaired Fasting Blood Sugar Current Outpatient Medications Medication Sig finasteride (PROSCAR) 5 mg tablet Take 1 tablet by mouth once daily. omeprazole (PRILOSEC) 20 mg capsule Take 1 capsule by mouth once daily. amLODIPine (NORVASC) 2.5 mg tablet Take 1 tablet by mouth once daily. atorvastatin (LIPITOR) 10 mg tablet Take 1 tablet by mouth daily at bedtime. acetaminophen (TYLENOL EXTRA STRENGTH ORAL) Take 1 tablet by mouth as needed. ketoconazole (NIZORAL) 2 % shampoo WASH FACE AND EARS - AND LET SIT FOR 5 MINUTES as directed ALTERN... (REFER TO PRESCRIPTION NOTES). fluticasone 50 mcg/actuation nasal spray Use 2 Sprays in each nostril once daily as needed for Cold/Allergy Symptoms. Rinse mouth after use. VIT C/DL-E AC/LUT/COPPER/ZNOX (PRESERVISION ORAL) Take 1 Each by mouth once daily. Sodium Chloride (OCEAN NASAL) 0.65 % NASAL [employer] Psyllium Husk-Aspartame (METAMUCIL SUGAR-FREE, ASPART,) 3.4 gram/5.8 gram powd Take 2 Tablespoonsful by mouth every other day. (Patient not taking: No sig reported) No current facility-administered medications for this visit. Objective BP 130/70 (BP Site: Left Arm, BP Position: Sitting, BP Cuff Size: Large Adult) Pulse 60 Temp 36.2 C (97.1 F) (Temporal) Resp 12 Wt 78 kg (172 lb) BMI 26.94 kg/m Physical Exam Constitutional: Appearance: Normal appearance. HENT: Nose: Right Turbinates: Swollen. Not pale. Left Turbinates: Swollen and pale. Mouth/Throat: Mouth: Mucous membranes are moist. Pharynx: No posterior oropharyngeal erythema. Tonsils: No tonsillar exudate. Cardiovascular: Rate and Rhythm: Normal rate and regular rhythm. Heart sounds: No murmur heard. No gallop. Pulmonary: Effort: Pulmonary effort is normal. Breath sounds: Normal breath sounds. Musculoskeletal: Right lower leg: No edema. Left lower leg: No edema. Neurological: General: No focal deficit present. Mental Status: He is alert. Gait: Gait normal. Component Latest Ref Rng & Units 01/13/2022 Protein, Total 6.3 - 8.0 g/dL 7.0 Albumin 3.9 - 4.9 g/dL 4.5 Calcium 8.5 - 10.2 mg/dL 9.7 Bilirubin, Total 0.2 - 1.3 mg/dL 0.8 Alkaline Phosphatase 38 - 113 U/L 88 AST 14 - 40 U/L 22 ALT 10 - 54 U/L 12 Glucose 74 - 99 mg/dL 94 BUN 9 - 24 mg/dL 19 Creatinine 0.73 - 1.22 mg/dL 1.00 Sodium 136 - 144 mmol/L 144 Potassium 3.7 - 5.1 mmol/L 4.5 Chloride 97 - 105 mmol/L 108 (H) CO2 22 - 30 mmol/L 24 Anion Gap 9 - 18 mmol/L 12 eGFR >=60 mL/min/1.73m 74 Cholesterol, Total <200 mg/dL 120 Triglyceride <150 mg/dL 101 HDL Cholesterol >39 mg/dL 31 (L) Non HDL Cholesterol <130 mg/dL 89 Fasting Time hrs 13 VLDL Cholesterol <30 mg/dL 20 TC:HDL Ratio <5.10 3.87 LDL Cholesterol <100 mg/dL 69 LDL:HDL Ratio <2.54 2.23 Hemoglobin A1C 4.3 - 5.6 % 5.5 Estimated Average Glucose mg/dL 111 BP 122/50 (BP Site: Right Arm, BP Position: Sitting) Assessment and Plan 1. Primary cough headache - ICD9: 339.83, ICD10: G44.83 (primary diagnosis) Control cough. 2. Essential hypertension - ICD9: 401.9, ICD10: I10 - good control - AMLODIPINE 2.5 MG TABLET - CBC 3. Hyperlipidemia, unspecified hyperlipidemia type - ICD9: 272.4, ICD10: E78.5 - good control - ATORVASTATIN 10 MG TABLET 4. Impaired fasting blood sugar - ICD9: 790.21, ICD10: R73.01 Improved. Low carb diet. - BASIC METABOLIC PNL - HGB A1C 5. Allergic rhinitis, unspecified seasonality, unspecified trigger - ICD9: 477.9, ICD10: J30.9 Take LORATADINE OTC daily x 2 months. See printed instructions or information. Mariano Beltran MD documented in this encounter [facility] 01-04-2022 Miscellaneous Notes Patient has been identified by name and date of : Yes Requested Prescriptions Pending Prescriptions Disp Refills finasteride (PROSCAR) 5 mg tablet 90 tablet 3 Sig: Take 1 tablet by mouth once daily. RX INSTRUCTIONS: Patient aware RX will be sent to pharmacy. No need to notify patient. [place] [facility] [place] [facility] 12-18-2021 Miscellaneous Notes Pharmacy verified in [facility] Patient has been identified by name and date of : Yes Patient aware RX will be sent to pharmacy. No need to notify patient. Spouse phones for refill(s): Requested Prescriptions Pending Prescriptions Disp Refills omeprazole (PRILOSEC) 20 mg capsule 90 capsule 3 Sig: Take 1 capsule by mouth once daily. Date of last office visit : 07/20/2021 Date of next office visit : 01/20/2022 Last 2 Encounter Wt Readings: Date: Wt: 07/20/2021 82.1 kg (181 lb) 01/19/2021 82.6 kg (182 lb) Please advise. Ilsa Borges Pss documented in this encounter [facility] 07-20-2021 History of Presen t illness Narrative This note was created using [email or web address]. Subjective Eben Pardo is a 85 year old male. He was concerned about his glucose. He cut out pop completely. Weight has been stable, but he was aiming for 20 pound weight loss over 12 months. Review of Systems Constitutional: Negative. Respiratory: Negative. Cardiovascular: Negative. Gastrointestinal: Negative. Neurological: Negative. ACTIVE PROBLEM LIST Bph With Obstruction/Lower Urinary Tract Symptoms Gout, Unspecified Actinic Keratosis (Premalignant AK) Allergic Rhinitis Hearing Loss of Both Ears Hyperlipidemia Ddd (Degenerative Disc Disease), Lumbar Gerd (Gastroesophageal Reflux Disease) Sleep Apnea, Obstructive Abnormal Lung Sounds Essential Hypertension Impaired Fasting Blood Sugar Current Outpatient Medications Medication Sig amLODIPine (NORVASC) 2.5 mg tablet Take 1 tablet by mouth once daily. atorvastatin (LIPITOR) 10 mg tablet Take 1 tablet by mouth daily at bedtime. finasteride (PROSCAR) 5 mg tablet Take 1 tablet by mouth once daily. omeprazole (PRILOSEC) 20 mg capsule Take 1 capsule by mouth once daily. acetaminophen (TYLENOL EXTRA STRENGTH ORAL) Take 1 tablet by mouth as needed. ketoconazole (NIZORAL) 2 % shampoo WASH FACE AND EARS - AND LET SIT FOR 5 MINUTES as directed ALTERN... (REFER TO PRESCRIPTION NOTES). fluticasone 50 mcg/actuation nasal spray Use 2 Sprays in each nostril once daily as needed for Cold/Allergy Symptoms. Rinse mouth after use. VIT C/DL-E AC/LUT/COPPER/ZNOX (PRESERVISION ORAL) Take 1 Each by mouth once daily. Sodium Chloride (OCEAN NASAL) 0.65 % NASAL [employer] Psyllium Husk-Aspartame (METAMUCIL SUGAR-FREE, ASPART,) 3.4 gram/5.8 gram powd Take 2 Tablespoonsful by mouth every other day. (Patient not taking: Reported on 07/20/2021 ) No current facility-administered medications for this visit. Objective BP 120/76 (BP Site: Right Arm, BP Position: Sitting, BP Cuff Size: Large Adult) Pulse 64 Temp 36.3 C (97.3 F) (Temporal Artery) Resp 12 Wt 82.1 kg (181 lb) BMI 28.35 kg/m Physical Exam Constitutional: General: He is not in acute distress. Cardiovascular: Rate and Rhythm: Normal rate and regular rhythm. Heart sounds: No murmur heard. No gallop. Pulmonary: Effort: No respiratory distress. Breath sounds: Rales present. Musculoskeletal: Right lower leg: No edema. Left lower leg: No edema. Neurological: Mental Status: He is alert. Assessment and Plan 1. Impaired fasting blood sugar - ICD9: 790.21, ICD10: R73.01 (primary diagnosis) Continue diet and weight loss efforts. - BASIC METABOLIC PNL - HGB A1C - HGB A1C 2. Essential hypertension - ICD9: 401.9, ICD10: I10 - good control 3. Hyperlipidemia, unspecified hyperlipidemia type - ICD9: 272.4, ICD10: E78.5 - good control - Continue current medication. - COMP METABOLIC PANEL - LIPID PANEL BASIC Mariano Beltran MD documented in this encounter [facility] documented as of this encounter (statuses as of 07/20/2021) [facility] History of Past illness Narrative* Problem Noted Date Resolved Date Right shoulder pain 08/03/2017 12/29/2017 Disorder of scapula 08/03/2017 12/29/2017 Occult GI bleeding 09/11/2015 03/02/2017 Lumbar spondylosis 04/01/2014 01/08/2015 Lumbar radiculopathy 04/01/2014 12/29/2017 Vitamin D deficiency 01/15/2014 01/08/2015 Insomnia secondary to chronic pain 01/07/2014 01/08/2015 Medication intolerance 09/11/2013 0 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 Follow up CT in 6 months. 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 Periodic limb movement disorder (PLMD) 8 12/29/2017 Generalized osteoarthrosis, unspecified site 01/05/2013 documented as of this encounter (statuses as of 12/18/2021) [facility] History of Past illness Narrative* Problem Noted Date Resolved Date Right shoulder pain 08/03/2017 12/29/2017 Disorder of scapula 08/03/2017 12/29/2017 Occult GI bleeding 09/11/2015 03/02/2017 Lumbar spondylosis 04/01/2014 01/08/2015 Lumbar radiculopathy 04/01/2014 12/29/2017 Vitamin D deficiency 01/15/2014 01/08/2015 Insomnia secondary to chronic pain 01/07/2014 01/08/2015 Medication intolerance 09/11/2013 0 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 Follow up CT in 6 months. 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 Periodic limb movement disorder (PLMD) 8 12/29/2017 Generalized osteoarthrosis, unspecified site 01/05/2013 documented as of this encounter (statuses as of 01/04/2022) [facility] History of Past illness Narrative* Problem Noted Date Resolved Date Right shoulder pain 08/03/2017 12/29/2017 Disorder of scapula 08/03/2017 12/29/2017 Occult GI bleeding 09/11/2015 03/02/2017 Lumbar spondylosis 04/01/2014 01/08/2015 Lumbar radiculopathy 04/01/2014 12/29/2017 Vitamin D deficiency 01/15/2014 01/08/2015 Insomnia secondary to chronic pain 01/07/2014 01/08/2015 Medication intolerance 09/11/2013 0 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 Follow up CT in 6 months. 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 Periodic limb movement disorder (PLMD) 8 12/29/2017 Generalized osteoarthrosis, unspecified site 01/05/2013 documented as of this encounter (statuses as of 01/20/2022) [facility] History of Past illness Narrative* Problem Noted Date Resolved Date Right shoulder pain 08/03/2017 12/29/2017 Disorder of scapula 08/03/2017 12/29/2017 Occult GI bleeding 09/11/2015 03/02/2017 Lumbar spondylosis 04/01/2014 01/08/2015 Lumbar radiculopathy 04/01/2014 12/29/2017 Vitamin D deficiency 01/15/2014 01/08/2015 Insomnia secondary to chronic pain 01/07/2014 01/08/2015 Medication intolerance 09/11/2013 0 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 Follow up CT in 6 months. 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 Periodic limb movement disorder (PLMD) 8 12/29/2017 Generalized osteoarthrosis, unspecified site 01/05/2013 documented as of this encounter (statuses as of 07/22/2022) [facility] History of Past illness Narrative* Problem Noted Date Resolved Date Right shoulder pain 08/03/2017 12/29/2017 Disorder of scapula 08/03/2017 12/29/2017 Occult GI bleeding 09/11/2015 03/02/2017 Lumbar spondylosis 04/01/2014 01/08/2015 Lumbar radiculopathy 04/01/2014 12/29/2017 Vitamin D deficiency 01/15/2014 01/08/2015 Insomnia secondary to chronic pain 01/07/2014 01/08/2015 Medication intolerance 09/11/2013 0 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 Follow up CT in 6 months. 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 Periodic limb movement disorder (PLMD) 8 12/29/2017 Generalized osteoarthrosis, unspecified site 01/05/2013 documented as of this encounter (statuses as of 08/18/2022) [facility] History of Past illness Narrative* Problem Noted Date Diagnosed Date Resolved Date Right shoulder pain 08/03/2017 12/30/19 18 Disorder of scapula 08/03/2017 12/30/19 18 Occult GI bleeding 09/11/2015 7 Lumbar spondylosis 04/01/2014 5 Lumbar radiculopathy 04/01/2014 018 Vitamin D deficiency 01/15/2014 015 Insomnia secondary to chronic pain 01/07/2014 01/08/2015 Medication intolerance 09/11/201301/16 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 Follow up CT in 6 months. Hematuria 02/02/2012 01/07/2014 Urgency of urination 02/02/2012 018 Frequency of urination 02/02/201212/29 Dribbling 02/02/2012 03/02/2017 History of Malignant Neoplas m of Skin: BCC & SCC 09/11/2009 01/14/2012 Surgical Scar and Fibrosis of Skin 09/11/2009 01/14/2012 Actinic Damage///Sun-Damaged Skin 09/11/2009 01/14/2012 Solar lentigo 09/11/2009 01/16/2012 Chronic back pain 09/03/2008 01/08/2015 Elevated prostate specific antigen (PSA) 10/19/2007 01/09/2014 Sleep apnea, obstructive 07/19/2007 Overview: CPAP not tolerated, not effective. Periodic limb movement disorder (PLMD) 07/19/2007 12/29/2017 Generalized osteoarthrosis, unspecified site 6 01/05/2013 documented as of this encounter (statuses as of 10/21/2022) [facility] History of Past illness Narrative* Problem Noted Date Diagnosed Date Resolved Date Right shoulder pain 08/03/2017 12/30/19 18 Disorder of scapula 08/03/2017 12/30/19 18 Occult GI bleeding 09/11/2015 7 Lumbar spondylosis 04/01/2014 5 Lumbar radiculopathy 04/01/2014 018 Vitamin D deficiency 01/15/2014 015 Insomnia secondary to chronic pain 01/07/2014 01/08/2015 Medication intolerance 09/11/201301/16 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 Follow up CT in 6 months. Hematuria 02/02/2012 01/07/2014 Urgency of urination 02/02/2012 018 Frequency of urination 02/02/201212/29 Dribbling 02/02/2012 03/02/2017 History of Malignant Neoplas m of Skin: BCC & SCC 09/11/2009 01/14/2012 Surgical Scar and Fibrosis of Skin 09/11/2009 01/14/2012 Actinic Damage///Sun-Damaged Skin 09/11/2009 01/14/2012 Solar lentigo 09/11/2009 01/16/2012 Chronic back pain 09/03/2008 01/08/2015 Elevated prostate specific antigen (PSA) 10/19/2007 01/09/2014 Sleep apnea, obstructive 07/19/2007 Overview: CPAP not tolerated, not effective. Periodic limb movement disorder (PLMD) 07/19/2007 12/29/2017 Generalized osteoarthrosis, unspecified site 6 01/05/2013 documented as of this encounter (statuses as of 12/11/2022) [facility] History of Past illness Narrative* Problem Noted Date Diagnosed Date Resolved Date Right shoulder pain 08/03/2017 12/30/19 18 Disorder of scapula 08/03/2017 12/30/19 18 Occult GI bleeding 09/11/2015 7 Lumbar spondylosis 04/01/2014 5 Lumbar radiculopathy 04/01/2014 018 Vitamin D deficiency 01/15/2014 015 Insomnia secondary to chronic pain 01/07/2014 01/08/2015 Medication intolerance 09/11/201301/16 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 Follow up CT in 6 months. Hematuria 02/02/2012 01/07/2014 Urgency of urination 02/02/2012 018 Frequency of urination 02/02/201212/29 Dribbling 02/02/2012 03/02/2017 History of Malignant Neoplas m of Skin: BCC & SCC 09/11/2009 01/14/2012 Surgical Scar and Fibrosis of Skin 09/11/2009 01/14/2012 Actinic Damage///Sun-Damaged Skin 09/11/2009 01/14/2012 Solar lentigo 09/11/2009 01/16/2012 Chronic back pain 09/03/2008 01/08/2015 Elevated prostate specific antigen (PSA) 10/19/2007 01/09/2014 Sleep apnea, obstructive 07/19/2007 Overview: CPAP not tolerated, not effective. Periodic limb movement disorder (PLMD) 07/19/2007 12/29/2017 Generalized osteoarthrosis, unspecified site 6 01/05/2013 documented as of this encounter (statuses as of 12/23/2022) [facility] of Past illness Narrative* Problem Noted Date Diagnosed Date Resolved Date Right shoulder pain 08/03/2017 12/30/19 18 Disorder of scapula 08/03/2017 12/30/19 18 Occult GI bleeding 09/11/2015 7 Lumbar spondylosis 04/01/2014 5 Lumbar radiculopathy 04/01/2014 018 Vitamin D deficiency 01/15/2014 015 Insomnia secondary to chronic pain 01/07/2014 01/08/2015 Medication intolerance 09/11/201301/16 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 Follow up CT in 6 months. Hematuria 02/02/2012 01/07/2014 Urgency of urination 02/02/2012 018 Frequency of urination 02/02/201212/29 Dribbling 02/02/2012 03/02/2017 History of Malignant Neoplas m of Skin: BCC & SCC 09/11/2009 01/14/2012 Surgical Scar and Fibrosis of Skin 09/11/2009 01/14/2012 Actinic Damage///Sun-Damaged Skin 09/11/2009 01/14/2012 Solar lentigo 09/11/2009 01/16/2012 Chronic back pain 09/03/2008 01/08/2015 Elevated prostate specific antigen (PSA) 10/19/2007 01/09/2014 Sleep apnea, obstructive 07/19/2007 Overview: CPAP not tolerated, not effective. Periodic limb movement disorder (PLMD) 07/19/2007 12/29/2017 Generalized osteoarthrosis, unspecified site 6 01/05/2013 documented as of this encounter (statuses as of 12/29/2022) [facility] of Past illness Narrative* Problem Noted Date Diagnosed Date Resolved Date Right shoulder pain 08/03/2017 12/30/19 18 Disorder of scapula 08/03/2017 12/30/19 18 Occult GI bleeding 09/11/2015 7 Lumbar spondylosis 04/01/2014 5 Lumbar radiculopathy 04/01/2014 018 Vitamin D deficiency 01/15/2014 015 Insomnia secondary to chronic pain 01/07/2014 01/08/2015 Medication intolerance 09/11/201301/16 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 Follow up CT in 6 months. Hematuria 02/02/2012 01/07/2014 Urgency of urination 02/02/2012 018 Frequency of urination 02/02/201212/29 Dribbling 02/02/2012 03/02/2017 History of Malignant Neoplas m of Skin: BCC & SCC 09/11/2009 01/14/2012 Surgical Scar and Fibrosis of Skin 09/11/2009 01/14/2012 Actinic Damage///Sun-Damaged Skin 09/11/2009 01/14/2012 Solar lentigo 09/11/2009 01/16/2012 Chronic back pain 09/03/2008 01/08/2015 Elevated prostate specific antigen (PSA) 10/19/2007 01/09/2014 Sleep apnea, obstructive 07/19/2007 Overview: CPAP not tolerated, not effective. Periodic limb movement disorder (PLMD) 07/19/2007 12/29/2017 Generalized osteoarthrosis, unspecified site 6 01/05/2013 documented as of this encounter (statuses as of 01/06/2023) [facility] of Past illness Narrative* Problem Noted Date Diagnosed Date Resolved Date Right shoulder pain 08/03/2017 12/30/19 18 Disorder of scapula 08/03/2017 12/30/19 18 Occult GI bleeding 09/11/2015 7 Lumbar spondylosis 04/01/2014 5 Lumbar radiculopathy 04/01/2014 018 Vitamin D deficiency 01/15/2014 015 Insomnia secondary to chronic pain 01/07/2014 01/08/2015 Medication intolerance 09/11/201301/16 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 Follow up CT in 6 months. Hematuria 02/02/2012 01/07/2014 Urgency of urination 02/02/2012 018 Frequency of urination 02/02/201212/29 Dribbling 02/02/2012 03/02/2017 History of Malignant Neoplas m of Skin: BCC & SCC 09/11/2009 01/14/2012 Surgical Scar and Fibrosis of Skin 09/11/2009 01/14/2012 Actinic Damage///Sun-Damaged Skin 09/11/2009 01/14/2012 Solar lentigo 09/11/2009 01/16/2012 Chronic back pain 09/03/2008 01/08/2015 Elevated prostate specific antigen (PSA) 10/19/2007 01/09/2014 Sleep apnea, obstructive 07/19/2007 Overview: CPAP not tolerated, not effective. Periodic limb movement disorder (PLMD) 07/19/2007 12/29/2017 Generalized osteoarthrosis, unspecified site 6 01/05/2013 documented as of this encounter (statuses as of 01/26/2023) [facility] Diagnosis Impaired fasting blood sugar- Primary Impaired fasting glucose Essential hypertension Unspecified essential hypertension Hyperlipidemia, unspecified hyperlipidemia type [facility] Diagnosis Gastroesophageal reflux disease without esophagitis Esophageal reflux [facility] Diagnosis BPH with obstruction/lower urinary tract symptoms Hypertrophy of prostate with urinary obstruction and other lower urinary tract symptoms (LUTS) [facility] Primary cough headache- Primary Essential hypertension Unspecified essential hypertension Hyperlipidemia, unspecified hyperlipidemia type Impaired fasting blood sugar Impaired fasting glucose Allergic rhinitis, unspecified seasonality, unspecified trigger [facility] Medicare annual wellness visit, subsequent- Primary Routine general medical examination at a health care facility Foot cramps Cramp of limb Cyst, dermoid, arm, right Impaired fasting blood sugar Impaired fasting glucose Abnormal lung sounds Abnormal chest sounds Heart murmur Undiagnosed cardiac murmurs Hyperlipidemia, unspecified hyperlipidemia type documented in this encounter [facility] note* Diagnosis 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 coronary artery of 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 coronary artery of [place] heart with other form of angina pectoris (HCC) Coronary artery disease involving [place] coronary artery of [place] heart with other form of angina pectoris (HCC) documented in this encounter [facility] note* Diagnosis Coronary artery disease involving [place] coronary artery of [place] heart with other form of angina pectoris (HCC)- Primary Moderate aortic stenosis Aortic valve disorders Primary hypertension Unspecified essential hypertension Mixed hyperlipidemia [place] (obstructive sleep apnea) Obstructive sleep apnea (adult) (pediatric) documented in this encounter [facility] note* Diagnosis Atherosclerosis of [place] coronary artery of [place] heart without angina pectoris- Primary Essential hypertension Unspecified essential hypertension Hyperlipidemia, unspecified hyperlipidemia type Stented coronary artery Postsurgical percutaneous transluminal coronary angioplasty status documented in this encounter [facility] note* Diagnosis Cervical pain Cervicalgia DDD (degenerative disc disease), lumbar Degeneration of lumbar or lumbosacral intervertebral disc documented in this encounter [facility] note* Diagnosis Nonintractable paroxysmal hemicrania, unspecified chronicity pattern- Primary Vision disturbance Unspecified visual disturbance Gastroesophageal reflux disease without esophagitis Esophageal reflux documented in this encounter [facility] note* Diagnosis Cervical pain- Primary Cervicalgia Nonintractable paroxysmal hemicrania, unspecified chronicity pattern Vision disturbance Unspecified visual disturbance Urinary frequency documented in this encounter [facility] note* Diagnosis BPH with obstruction/lower urinary tract symptoms Hypertrophy of prostate with urinary obstruction and other lower urinary tract symptoms (LUTS) [facility] Diagnosis Claudication of left lower extremity (HCC)- Primary Peripheral vascular disease, unspecified Essential hypertension Unspecified essential hypertension Atherosclerosis of [place] coronary artery of [place] heart without angina pectoris Hyperlipidemia, unspecified hyperlipidemia type Hypoalbuminemia Other disorders of plasma protein metabolism Alkaline phosphatase elevation Other nonspecific abnormal serum enzyme levels Need for influenza vaccination Need for prophylactic vaccination and inoculation against influenza Need for COVID-19 vaccine Contusion of right forearm, initial encounter Cervical pain Cervicalgia documented in this encounter [facility] for referral (narrative)* Outpatient Procedure (Routine) - Closed Specialty Diagnoses / Procedures Referred By Jessica t Referred To Contact [facility] [place] Diagnoses Heart murmur Procedures ECG COMPLETE ECG ROUTINE ECG W/LEAST 12 LDS W/I&R Mariano Beltran MD [address] [place] [address] [place] [address] Referral ID Status Reason Start Date Expiration Date V isits Requested Visits Authorized [id number] Closed Auto-Generate d Referral 07/22/2022 07/22/2023 1 1 * Outpatient Procedure (Routine) - Authorized Specialty Diagnoses / Procedures Referred By Jessica cruz Referred To Contact [facility] Diagnoses Heart murmur Procedures ECHO ECHO TTHRC R-T 2D W/WOM-MODE COMPL SPEC&COLR D Mariano Beltran MD [address] [place] [address] [place] [address] Referral ID Status Reason Start Date Expiration Date Visits Requested Visits Authorized [id number] Authorized Auto-Generat ed Referral 07/22/2022 07/22/2023 1 1 [facility] for referral (narrative)* Consultation (Routine) - Pending Review Specialty Diagnoses / Procedures Referred By Contact Referred To Contact Cardiac Rehabilitation / Cardiology Diagnoses 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 Procedures [place] OFFICE/OUTPATIENT NEW HIGH MDM 60-74 MINUTES Liz Berger, NETWORK CONTROL OPERATOR - DIALYSIS BIOMED TECHNICIAN [address] [place] [address] [facility] [address] [place] [address] Referral ID Status Reason Start Date Expiration Date Visits Requested Visits Authorized [id number] Pending Review Specialty Services Required 09/21/2022 09/21/2023 1 1 [facility] for referral (narrative)* Consultation (Routine) - Pending Review Specialty Diagnoses / Procedures Referred By Contac t Referred To Contact Cardiology Diagnoses Coronary artery disease involving [place] coronary artery of [place] heart with other form of angina pectoris (HCC) Procedures [place] OFFICE/OUTPATIENT NEW HIGH MDM 60-74 MINUTES Alok Whitehead APRN - CNP [address] [place] [address] [address] Referral ID Status Reason Start Date Expiration Date Visits Requested Visits Authorized [id number] Pending Review Specialty Services Required 09/30/2022 09/30/2023 1 1 [facility] for referral (narrative)* Diagnostic Procedure Only (Routine) - Authorized Specialty Diagnoses / Procedures Referred By Jessica t Referred To Contact [facility] Diagnoses Alkaline phosphatase elevation Procedures US ABD RIGHT UPPER QUADRANT US ABDOMINAL REAL TIME W/IMAGE LIMITED Mariano Beltran MD [address] [place] [address] [place] [address] Referral ID Status Reason Start Date Expiration Date Visits Requested Visits Authorized [id number] Authorized Auto-Generat ed Referral 02/24/2024 1 1 [facility] Advance Directives No Advanced Directives Records FoundDocuments on File Type Date Recorded 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 Advance Directive(s) 12/15/2015 11:15 AM Latest Code Status on File Code Status Date Activated Date Inactivated Comments Full Code 09/20/2022 8:46 AM 09/21/2022 2:04 PM Latest Code Status on File Code Status Date Activated Date Inactivated Comments Full Code 09/20/2022 8:46 AM 09/21/2022 2:04 PM Summary Purpose Family History No Family History Records FoundNo Family History Records Found Reason for Referral Specialty Diagnoses / Procedures Referred By Contac t Referred To Contact Ophthalmology Diagnoses Nonintractable paroxysmal hemicrania, unspecified chronicity pattern Vision disturbance Procedures CONSULT TO OPHTHALMOLOGY Mariano Beltran MD [address] [place] [address] Referral ID Status Reason Start Date Expiration Date Visits Requested Visits Authorized [id number] Ref Not Required PCP Requested Referral 3 12/22/2023 1 1 Additional Source Comments Source Comments (unrecognize d section and content) In the event this informatio n is protected by the Federal Confidentiality of Alcohol and Drug Abuse Patient Records regulations: The Federal rules restrict any use of the information to criminally investigate or prosecute any alcohol or drug abuse patient.[facility] the event this information is protected by the Federal Confidentiality of Alcohol and Drug Abuse Patient Records regulations: The Federal rules restrict any use of the information to criminally investigate or prosecute any alcohol or drug abuse patient.[facility] the event this information is protected by the Federal Confidentiality of Alcohol and Drug Abuse Patient Records regulations: The Federal rules restrict any use of the information to criminally investigate or prosecute any alcohol or drug abuse patient.[facility] the event this information is protected by the Federal Confidentiality of Alcohol and Drug Abuse Patient Records regulations: The Federal rules restrict any use of the information to criminally investigate or prosecute any alcohol or drug abuse patient.[facility] the event this information is protected by the Federal Confidentiality of Alcohol and Drug Abuse Patient Records regulations: The Federal rules restrict any use of the information to criminally investigate or prosecute any alcohol or drug abuse patient.[facility] the event this information is protected by the Federal Confidentiality of Alcohol and Drug Abuse Patient Records regulations: The Federal rules restrict any use of the information to criminally investigate or prosecute any alcohol or drug abuse patient.[facility] the event this information is protected by the Federal Confidentiality of Alcohol and Drug Abuse Patient Records regulations: The Federal rules restrict any use of the information to criminally investigate or prosecute any alcohol or drug abuse patient.[facility] the event this information is protected by the Federal Confidentiality of Alcohol and Drug Abuse Patient Records regulations: The Federal rules restrict any use of the information to criminally investigate or prosecute any alcohol or drug abuse patient.[facility] the event this information is protected by the Federal Confidentiality of Alcohol and Drug Abuse Patient Records regulations: The Federal rules restrict any use of the information to criminally investigate or prosecute any alcohol or drug abuse patient.[facility] the event this information is protected by the Federal Confidentiality of Alcohol and Drug Abuse Patient Records regulations: The Federal rules restrict any use of the information to criminally investigate or prosecute any alcohol or drug abuse patient.[facility] the event this information is protected by the Federal Confidentiality of Alcohol and Drug Abuse Patient Records regulations: The Federal rules restrict any use of the information to criminally investigate or prosecute any alcohol or drug abuse patient.[facility] the event this information is protected by the Federal Confidentiality of Alcohol and Drug Abuse Patient Records regulations: The Federal rules restrict any use of the information to criminally investigate or prosecute any alcohol or drug abuse patient.[facility] Reason for Visit (unrecogniz ed section and content) Reason Onset Date Comments Refill Request 12/18/2021 Reason Comments Refill Request Reason Comments Annual Medicare Wellness F/U 6 months Reason Comments Results Reason Comments New Patient Consult for PCI Shortness of Breath Chest Pain Specialty Diagnoses / Procedures Referred By Contac t Referred To Contact Cardiology Diagnoses Atherosclerotic heart disease of [place] coronary artery without angina pectoris Procedures [place] OFFICE/OP CONSLTJ NEW/EST PT MOD MDM 40 MINUTES Jasper Gee [address] [place] [address] Clatyon Ayon MD [address] [address] Referral ID Status Reason Start Date Expiration Date Visits Re quested Visits Authorized [id number] Closed 09/16/2022 09/17/2023 1 1 Specialty Diagnoses / Procedures Referred By Contac t Referred To Contact Diagnoses Coronary artery disease involving [place] coronary artery of [place] heart with other form of angina pectoris (HCC) Coronary artery disease involving [place] coronary artery of [place] heart with other form of angina pectoris (HCC) [I25.118] Procedures Angioplasty - coronary Clayton Ayon MD [address] [facility] [address] [place] [address] [facility] Cardiac Cath/Ep Lab [address] [place] [id number] Referral ID Status Reason Start Date Expiration Date Visits Re quested Visits Authorized [id number] 1 1 Reason Comments Coronary Artery Disease S/p multivessel PCI Reason Onset Date Comments Procedure 09/16/2022 PCI schedule Reason Onset Date Comments Refill Request 12/10/2022 Reason Comments Consult Reason Comments Follow Up For General surgeon, ort ho & opthalmologist office visit; Prednisone refill Reason Onset Date Comments Refill Request 01/06/2023 Reason Onset Date Comments F/U 6 months Immunizations 01/25/2023 Flu vaccination Multiple Concerns Care Teams (unrecognized sec tion and content) 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 Relationship Specialty Start Date End Date Mariano Beltran MD [address] [place] [address] PCP - General 05/19/09 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 Relationship Specialty Start Date End Date Mariano Beltran MD [facility] [place] [address] PCP - General 05/19/09 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 Relationship Specialty Start Date End Date Mariano Beltran MD [facility] [place] [address] PCP - General 05/19/09 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 Relationship Specialty Start Date End Date Mariano Beltran MD [address] [place] [address] PCP - General 05/19/09 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 Relationship Specialty Start Date End Date Mariano Beltran MD [address] [place] [address] PCP - General 05/19/09 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 Relationship Specialty Start Date End Date Mariano Beltran [address] [facility] [place] [address] PCP - General Internal Medicine 09/16/22 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 Relationship Specialty Start Date End Date Mariano Beltran [address] [facility] [place] [address] PCP - General Internal Medicine 09/16/22 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 Relationship Specialty Start Date End Date Mariano Beltran [address] [facility] [place] [address] PCP - General Internal Medicine 09/16/22 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 Relationship Specialty Start Date End Date Mariano Beltran [address] [facility] [place] [address] PCP - General Internal Medicine 09/16/22 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 Relationship Specialty Start Date End Date Mariano Beltran [address] [facility] [place] [address] PCP - General Internal Medicine 09/16/22 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 Relationship Specialty Start Date End Date Mariano Beltran [address] [facility] [place] [address] PCP - General Internal Medicine 09/16/22 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 Relationship Specialty Start Date End Date Mariano Beltran [address] [facility] [place] [address] PCP - General Internal Medicine 09/16/22 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 Relationship Specialty Start Date End Date Mariano Beltran MD [address] [place] [address] PCP - General 05/19/09 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 Relationship Specialty Start Date End Date Mariano Beltran MD [address] [place], [place] [id number] PCP - General 05/19/09 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 Relationship Specialty Start Date End Date Mariano Beltran MD [address] [place], [place] [id number] PCP - General 05/19/09 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 Relationship Specialty Start Date End Date Mariano Beltran MD [address] [place], [place] [address] PCP - General 05/19/09 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 Relationship Specialty Start Date End Date Mariano Beltran MD [address] [place], [place] [id number] PCP - General 05/19/09 Scheduled Active and Recently Administ ered Medications (unrecognized section and content) Continuous Medication Order 09/19/2022 09/20/2022 09/21/2022 sodium chloride 0.9 % infusion (CANCELED) 30 mL/hr, IntraVENous, Continuous, Starting on Tue09/20/22 at 0900, Preprocedure 0900 (Due)1118 (Rate/Dose Change - Provider: Jen Swain RN) PRN Medication Order 09/19/2022 09/20/2022 09/21/2022 acetaminophen (Tylenol) tablet 650 mg 650 mg, Oral, Every 4 hours PRN, mild pain (1-3), Fever > 100.5 F (38 C), Starting on Tue09/20/22 at 1258, Recovery & On Unit, Maximum dose of acetaminophen is 4000 mg from all sources in 24 hours. 0013 (Given - Provid er: Mingo Lea) atropine syringe (CANCELED) As needed, Starting on Tue09/20/22 at 1113, Intraprocedure 1113 (Given - Provider: Jen Swain RN) fentaNYL (Sublimaze) injection (CANCELED) IntraVENous, As needed, Starting on Tue09/20/22 at 1150, Intraprocedure 1150 (Given - Provider: Jen Swain RN)1203 (Given - Provider: Jen Swain RN) heparin injection (CANCELED) IntraVENous, As needed, Starting on Tue09/20/22 at 1112, Intraprocedure 1112 (Given - Provider: Jen Swain RN) iopamidol (Isovue-300) 61 % injection (CANCELED) As needed, Starting on Tue09/20/22 at 1228, Intraprocedure 1228 (Given - Provider: Clayton Ayon MD) lidocaine (Xylocaine) 1 % injection (CANCELED) As needed, Starting on Tue09/20/22 at 1105, Intraprocedure 1105 (Given - Provider: Clayton Ayon MD) nitroglycerin (Nitrostat) SL tablet 0.4 mg 0.4 mg, SubLINGual, Every 5 min PRN, chest pain, Starting on Tue09/20/22 at 1413, May administer up to 3 doses per episode. NOREPINEPHRINE IV SYRINGE 160 MCG/10 ML (CHARGE ONLY) (CANCELED) As needed, Starting on Tue09/20/22 at 1118, Intraprocedure 1118 (Given - Provider: Jen Swain RN) (unrecognized sect ion and content) No Status Records FoundNo Status Records Found INFORMATION SOURCE (unrecogn ized section and content) DATE CREATED AUTHOR AUTHOR'S ORGANIZ ATION 02/01/2023 [facility] FOR RECORDS PERTAINING TO PATIENTS WHO ARE OR HAVE BEEN ENROLLED IN A CHEMICAL DEPENDENCY/SUBSTANCEABUSE PROGRAM, SOME INFORMATION MAY BE OMITTED. This clinical summary was aggregated from multiple sources. Caution should be exercised in using it in the provision of clinical care. This summary normalizes information from multiple sources, and as a consequence, information in this document may materially change the coding, format and clinical context of patient data. In addition, data may be omitted in some cases. CLINICAL DECISIONS SHOULD BE BASED ON THE PRIMARY CLINICAL RECORDS. [facility]. provides no warranty or guarantee of the accuracy or completeness of information in this document.
[2023-04-06 05:42] LABS: Differential Comment SCANNED
[2023-04-06 06:22] VITALS: PULSE 50; RESP 18; O2SAT 96
[2023-04-06 06:23] VITALS: BP 91/43; PULSE 47; RESP 15; TEMP 37.5; O2SAT 97
[2023-04-06 14:35] LABS: Pathologist Review Reviewed
== END 2023-04-06 06:36 | disposition home or self-care (01) ==
PROVIDERS: Emergency Provider Emergency Medicine; PCP Internal Medicine; Visit Provider Emergency Medicine
DX: R07.9 Chest pain, unspecified (principal); I10 Essential (primary) hypertension; I35.0 Nonrheumatic aortic (valve) stenosis; E78.2 Mixed hyperlipidemia; G47.33 Obstructive sleep apnea (adult) (pediatric); K21.9 Gastro-esophageal reflux disease without esophagitis; Z79.82 Long term (current) use of aspirin; Z79.02 Long term (current) use of antithrombotics/antiplatelets; Z79.899 Other long term (current) drug therapy
CPT/HCPCS: 71045; 80048; 84484; 85025; 85379; 93005; 99284; A4216

== ENCOUNTER → 2023-05-09 | Outpatient (CLI) | payer MEDICARE, SELFPAY ==
[2023-01-26 08:33] VITALS: BMI 23.8
[2023-05-09 10:41] LABS: AST(SGOT) 71 U/L (15-37); Alanine Aminotransfer ALT/SGPT 104 U/L (16-61); Albumin, Serum 3.3 g/dL (3.2-5.0); Alkaline Phosphatase 205 U/L (45-117); Bilirubin, Direct 0.16 mg/dL (0.00-0.30); Cholesterol 95 mg/dL (200); Globulin 3.3 g/dL (2.2-4.2); High Density Lipoprotein 33 mg/dL; Protein, Total 6.6 g/dL (6.4-8.2); Triglycerides 111 mg/dL; Very Low Density Lipoprotein 22 mg/dL (5-40)
== END | disposition home or self-care (01) ==
LOC: LAB 08:50
PROVIDERS: PCP Internal Medicine; Visit Provider Nurse Practitioner Gerontology
DX: E78.2 Mixed hyperlipidemia (principal)
CPT/HCPCS: 36415; 80061; 80076

== ENCOUNTER 2023-07-21 23:13 | Emergency (ER) | payer MEDICARE, SELFPAY ==
[2023-01-26 08:33] VITALS: BMI 23.8
[2023-07-21 23:14] VITALS: BP 117/59; PULSE 78; RESP 16; TEMP 36.9; O2SAT 97; BMI 23.7
--- NOTE | 2023-07-21 23:38 | RAD_ITS ---
INDICATION: COUGH EXAMINATION/TECHNIQUE: X-RAY - XR Chest 2 Views COMPARISON: None. FINDINGS: LINES/DEVICES: None. LUNGS: Reticular opacities in the left lung base. Small left pleural effusion. No pneumothorax. MEDIASTINUM: Unremarkable. CARDIAC SILHOUETTE: Not enlarged. BONES AND SOFT TISSUES: No acute abnormalities. RAD/Chest PA and Lateral IMPRESSION: Small left pleural effusion and basilar subsegmental atelectasis. Electronically Signed: Rhiannon Molina MD at 0:21 EDT ,
[2023-07-21] MEDS: Ketorolac 15 MG/ML Vial IV (23:54)
[2023-07-21] MEDS: dexAMETHasone 10 MG/ML Vial IV (23:54)
[2023-07-21] MEDS: 0.9% Normal Saline (500mL Bag) 500 ML 999 ML IV (23:59)
[2023-07-22 00:08] LABS: Erythrocyte Sedimentation Rate 9 mm/hr (0-20)
[2023-07-22 00:09] LABS: Absolute Lymphocyte Count 0.89 X10^3/uL (0.83-4.51); Absolute Neutrophil Count 10.5 X10^3/uL (2.0-7.7); Basophil# 0.07 X10^3/uL; Basophil% 0.5 % (0-1); Eosinophil# 0.01 X10^3/uL; Eosinophils% 0.1 % (0-5); Hematocrit 39.5 % (40-54); Hemoglobin 12.5 g/dL (13.0-16.5); Lymphocyte # 0.89 X10^3/ul (0.83-4.51); Lymphocyte % 6.3 % (19-41); Mean Corp Hgb Conc 31.6 g/dL (32-36); Mean Corpuscular Hgb 30.3 pg (27.0-32.0); Mean Corpuscular Volume 95.6 fL (80-94); Mean Platelet Vol. 10.3 fl (6.2-12.0); Monocyte# 2.56 X10^3/uL; Monocyte% 18.1 % (0-10); NRBC Flagged by Analyzer 0 % (0-5); Neutrophil # 10.53 X10^3/uL (2.7-7.7); Neutrophil % 74.2 % (47-70); POSITIVE DIFFERENTIAL YES; Platelet Count 221 K/mm3 (150-450); RBC Distribution Width CV 14.6 % (11.6-14.6); RBC Distribution Width SD 51.8 fl (35.1-43.9); Red Blood Count 4.13 M/mm3 (4.6-6.2); White Blood Count 14.2 K/mm3 (4.4-11.0)
[2023-07-22 00:11] LABS: Differential Indicated SCAN CRITERIA MET
--- NOTE | 2023-07-22 00:17 | CT_ITS ---
EXAM: CT Abdomen And Pelvis W/ Contrast Injection HISTORY: abd pain TECHNIQUE: Routine protocol CT abdomen pelvis. IV Contrast: IV 100mL Isovue-370 . Oral Contrast: without. Sagittal and coronal images were reconstructed. RADIATION DOSAGE (If Supplied By Facility): CTDIvol = ( 9.16 ) mGy, DLP = ( 339.35 ) mGycm Individualized dose optimization techniques were used for this CT. COMPARISON: CT abdomen and pelvis 12/06/2022. LIMITATIONS: None. FINDINGS: LOWER CHEST: Consolidation at the left lower lobe and small left pleural effusion. Minimal dependent atelectasis in the right lower lobe. Coronary artery calcifications. LIVER: Unremarkable. GALLBLADDER/BILE DUCTS: Unremarkable. PANCREAS: Unremarkable. SPLEEN: Unremarkable. ADRENAL GLANDS: Unremarkable. KIDNEYS / URETERS: Left kidney: 3.3 cm cyst at the upper pole. Smaller 2 cm low-attenuation structure upper pole does not correlate with a simple cyst right kidney unremarkable. No hydronephrosis. BOWEL / MESENTERY: Scattered diverticula in the colon. No bowel obstruction. APPENDIX: Not identified. PERITONEUM: No free air. No free fluid. VESSELS: Abdominal aorta is normal caliber. RETROPERITONEUM: Unremarkable. REPRODUCTIVE ORGANS: Prostate enlarged. BLADDER: Minimally distended. Thickened wall. ABDOMINAL WALL: Unremarkable. BONES: Diffuse lytic and sclerotic lesions throughout the bony skeleton, particularly the spine and pelvis and proximal femurs. OTHER: None. CT/Abdomen/Pelvis W IV Cont ONLY IMPRESSION: 1. Urinary bladder wall thickening may be consistent with cystitis or secondary to prostate disease or malignancy. 2. Enlarged prostate. 3. Extensive skeletal lesions may be consistent with metastatic disease or other diffuse process. 4. 2 cm left renal lesion is indeterminate, complex cyst or cystic neoplasm/malignancy not excluded. This could be further characterized with MRI. 5. Colonic diverticulosis without evidence of acute diverticulitis. 6. Left lower lobe consolidation and small left pleural effusion may be consistent with pneumonia. Electronically Signed: Rhiannon Molina MD at 2:07 EDT ,
[2023-07-22 00:27] LABS: Differential Comment SCANNED
[2023-07-22 00:30] LABS: Anion Gap 2 (5-15); BUN 18 mg/dL (7-18); CPK Total, Creatine Kinase 141 U/L (39-308); Calcium,Total 9.2 mg/dL (8.5-10.1); Chloride 103 mmol/L (98-107); Creatinine, Serum 1.06 mg/dL (0.70-1.30); EST Glomerular Filtration Rate 71 mL/min (>60); Est Glom Filt Rate - Afr Amer 85 mL/min (>60); Estimated Creatinine Clearance 47.63 ml/min; Glucose 156 mg/dL (74-106); Potassium 4.2 mmol/L (3.5-5.1); Sodium Level 135 mmol/L (136-145)
[2023-07-22 00:57] LABS: Lactic Acid 1.1 mmol/L (0.4-1.9)
[2023-07-22 01:14] VITALS: BP 116/53; PULSE 69; RESP 17; O2SAT 92
[2023-07-22 01:56] LABS: Bacteria 0 SEEN /hpf (None Seen); Mucous, Urine 0 SEEN /hpf (<or=2+); Red Blood Cells-Urine 0 SEEN /hpf (0-5); Squamous Epithelial Cells - UA 0 SEEN /hpf (0-5); White Blood Cells 0 SEEN /hpf (0-5)
[2023-07-22 01:57] LABS: Glucose, Dipstick Normal (Normal); Ketone-Dipstick Negative (Negative); Leukocyte Esterase-Dipstick 25 /ul (Negative); Nitrite-Dipstick Negative (Negative); Occult Blood-Urine 10 /ul (Negative); Protein-Dipstick 30 mg/dl (Negative); Specific Gravity, Urine 1.015 (1.002-1.030); Urine Bilirubin Dipstick Negative (Negative); Urine Urobilinogen Normal (Normal)
[2023-07-22 02:02] LABS: Color, Urine Yellow (Yellow); Urine Clarity Clear (Clear)
[2023-07-22 03:00] VITALS: BP 115/54; PULSE 70; RESP 18
--- NOTE | 2023-07-22 03:03 | EX.ED.DYSGE1 ---
HPI History of Present Illness Chief Complaint: General Illness Narrative Narrative: Patient is an 87-year-old male with past medical history of coronary artery disease and hypertension hyperlipidemia. He states for quite some time he has had generalized pain from his neck down to his knees/ankles. He reports there is been no recent trauma or excessive activity. He states that he has talked to other doctors about this with no obvious source or cause for his symptoms. He states in the last few days his pain is worsening and keeping him from sleeping and secondary to his he comes in for evaluation [facility] Medical History Bruit of left carotid artery Dyspnea on exertion Essential hypertension GERD (gastroesophageal reflux disease) Mixed hyperlipidemia Nonrheumatic aortic (valve) stenosis MARISOL (obstructive sleep apnea) Home Medications ?Medication ?Instructions ?Recorded ?Last Taken ?Type acetaminophen 500 mg tablet 500 - 1,000 mg PO Q6H PRN PRN Pain 08/18/18 Unknown History amlodipine 2.5 mg tablet 2.5 mg PO DAILY 08/18/18 09/13/22 History finasteride 5 mg tablet 5 mg PO DAILY 08/18/18 Unknown History fluticasone propionate 50 1 spray BID PRN ALLERGY SX 08/18/18 Unknown History mcg/actuation nasal spray,suspension [id number] acid 0.4 1 ea PO DAILY 08/18/18 Unknown History mg-lycopene 300 mcg-lutein 250 mcg tablet (Centrum Silver) vit C 250 mg-vit E 90 mg-zinc 40 1 ea PO BID 08/18/18 Unknown History mg-copper 1 [id number] capsule (PreserVision AREDS-2) aspirin 81 mg tablet,delayed 81 mg PO DAILY 10/22/22 Unknown History release (Adult Low Dose Aspirin) metoprolol tartrate 25 mg tablet 25 mg PO DAILY 10/22/22 Unknown History prednisone 10 mg tablet 10 mg PO DIRECTED 12/22/22 Unknown History famotidine 20 mg tablet (Pepcid) 20 mg PO DAILY #30 tabs 02/09/23 Unknown Rx clopidogrel 75 mg tablet (Plavix) 75 mg PO .COMPLEX #90 tabs 03/30/23 Unknown Rx doxycycline hyclate 100 mg capsule 100 mg PO BID 7 days #14 caps 07/22/23 Unknown Rx oxycodone-acetaminophen 5 mg-325 1 tab PO Q6H PRN pain 5 days #20 07/22/23 Unknown Rx mg tablet (Percocet) tabs prednisone 10 mg tablet 10 mg PO DAILY #30 tabs 07/22/23 Unknown Rx Allergy/AdvReac Type Severity Reaction Status Date / Time meloxicam (From Mobic) Allergy Unknown Verified 07/21/23 23:16 Sulfa (Sulfonamide Allergy Unknown Verified 07/21/23 23:16 Antibiotics) atorvastatin AdvReac Intermediate Myalgias Verified 07/21/23 23:16 ezetimibe (From Zetia) AdvReac Intermediate Joint pain Verified 07/21/23 23:16 and myalgias, muscle weakness gabapentin AdvReac Unknown Shortness Verified 07/21/23 23:16 of breath Family History Father Myocardial infarction, Onset Age: 60 Brother Heart disease Sister Heart disease Surgical History History of appendectomy History of prostate biopsy Hx of heart artery stent Social History Smoking Status: Never smoker alcohol intake: never ROS ROS ED Constitutional Constitutional ED: Denies chills or fever(s) Eyes Eyes: Denies change in vision ENT ENT ED: Denies sore throat Cardiovascular Cardiovascular: Denies chest pain Respiratory/Chest Respiratory/Chest: Denies cough or dyspnea Gastrointestinal Gastrointestinal: Reports nausea; Denies abdominal pain, diarrhea or vomiting Genitourinary Genitourinary ED: Denies dysuria or hematuria Musculoskeletal Musculoskeletal: Reports arthralgias, back pain, myalgias and neck pain Integumentary Denies Abrasions or rash Neurologic Neurologic: Denies headache(s) or paresthesias Hematologic/Lymphatic Hematologic/Lymphatic: Denies easy bleeding or easy bruising EXAM Physical Exam Const Vital Signs: 07/21/23 23:14 07/21/23 23:39 07/22/23 01:14 Temperature 98.4 F Temperature Source Temporal Pulse Rate 78 69 Respiratory Rate 16 17 Respiratory Effort Normal Non-Labored Respiratory Pattern Normal Blood Pressure 117/59 L 116/53 L Blood Pressure Mean 78 74 Pulse Ox 97 92 Oxygen Delivery Method Room Air Room Air Positive well nourished and well developed General Appearance ED: well developed; Negative for pallor HEENT Reports moist mucous membranes HEENT Narrative: No tongue or lip swelling no oral lesions no airway edema or compromise No signs of infection noted in the posterior pharynx Eyes PERRL and EOMs intact bilaterally General Eye ED: Negative for scleral icterus Neck Neck Narrative: No bony deformity or step-off of the cervical spine There is bilateral paracervical tenderness and spasm with decreased range of motion noted No nuchal rigidity or meningeal signs however Chest Wall Chest Narrative: There is reproducible diffuse anterior chest wall pain on palpation without bony deformity or crepitance Resp normal respiratory effort and clear to auscultation bilaterally Cardio regular rate and regular rhythm GI non-distended and no masses GI Narrative: There is mild pain with palpation in the suprapubic to left lower quadrant region without voluntary guarding or rigidity No pulsatile mass or fluid wave Auscultation: normoactive bowel sounds Palpation: soft Back/Spine no CVA tenderness Back/Spine Narrative: No bony deformity or step-off of the thoracic or lumbar spine no midline pain with palpation There is bilateral parathoracic and lumbar tenderness and spasm noted that worsens with motion Extremity normal to inspection Extremity Narrative: No bony deformity or joint effusion noted Compartments are soft and compressible going against compartment syndrome There are areas of diffuse pain to the bilateral legs and arms however without secondary findings to suggest trauma or infection Neuro oriented x3, CN's II-XII intact bilaterally and no sensory deficits noted Sensorium / Orientation: alert Psych mental status grossly normal Skin no rashes or lesions noted and no wounds General Skin Exam: Negative for jaundice or pallor MDM MDM MDM Narrative Medical decision making narrative: Patient arrived to the ER with stable vitals but had diffuse pain on examination. Differential diagnosis is for fibromyalgia versus metastatic disease versus rhabdomyolysis versus chronic pain syndrome versus myalgias secondary to potential infection. Therefore basic labs were obtained and show elevated white count at 14 but otherwise no clinically significant findings. The patient's chest x-ray did not reveal any obvious signs of infection or signs of broken rib or lytic lesions. Based on the elevated white count and his mild abdominal pain I had concern this could be potential colitis versus diverticulitis so I did elect to perform a CT scan of the abdomen and pelvis. This revealed multiple lesions concerning for metastatic cancer. This could potentially explain the patient's generalized pain as well as mild leukocytosis. He is hemodynamically stable at this time however so there is no need for admission but based on these findings and concern for metastatic disease as the cause of his symptoms he will be referred to oncology for further testing Lab Data Attestation: I reviewed the patient's lab results. Labs: Laboratory Results - last 24 hr 07/21/23 07/21/23 01:50 23:55 WBC 14.2 H RBC 4.13 L Hgb 12.5 L Hct 39.5 L MCV 95.6 H MCH 30.3 MCHC 31.6 L RDW Std Deviation 51.8 H RDW Coeff of Kristan 14.6 Plt Count 221 MPV 10.3 Immature Gran % (Auto) 0.800 Neut % (Auto) 74.2 H Lymph % (Auto) 6.3 L [place] % (Auto) 18.1 H Eos % (Auto) 0.1 Baso % (Auto) 0.5 Absolute Neuts (auto) 10.5 H Absolute Lymphs (auto) 0.89 Nucleated RBC % 0 Differential Comment SCANNED ESR 9 Sodium 135 L Potassium 4.2 Chloride 103 Carbon Dioxide 30.0 Anion Gap 2 L BUN 18 Creatinine 1.06 Estim Creat Clear Calc 47.63 Est GFR (MDRD) Af Amer 85 Est GFR (MDRD) Non-Af 71 BUN/Creatinine Ratio 17.0 Glucose 156 H Lactic Acid 1.1 Calcium 9.2 Total Creatine Kinase 141 C-React Prot Ext Range 91.20 H Urine Color Yellow Urine Clarity Clear Urine pH 5.0 Ur Specific [place] 1.015 Urine Protein 30 H Urine Glucose (UA) Normal Urine Ketones Negative Urine Occult Blood 10 H Urine Nitrite Negative Urine Bilirubin Negative Urine Urobilinogen Normal Ur Leukocyte Esterase 25 H Urine RBC 0 SEEN Urine WBC 0 SEEN Ur Squamous Epith Cells 0 SEEN Urine Bacteria 0 SEEN Urine Mucus 0 SEEN Radiography Diagnostic Testing: Clinical Impression(s) from Imaging Studies Chest X-Ray 07/21/23 23:38 IMPRESSION: Small left pleural effusion and basilar subsegmental atelectasis. Electronically Signed: Rhiannon Molina MD at 0:21 EDT , Abdomen/Pelvis CT 07/22/23 00:17 IMPRESSION: 1. Urinary bladder wall thickening may be consistent with cystitis or secondary to prostate disease or malignancy. 2. Enlarged prostate. 3. Extensive skeletal lesions may be consistent with metastatic disease or other diffuse process. 4. 2 cm left renal lesion is indeterminate, complex cyst or cystic neoplasm/malignancy not excluded. This could be further characterized with MRI. 5. Colonic diverticulosis without evidence of acute diverticulitis. 6. Left lower lobe consolidation and small left pleural effusion may be consistent with pneumonia. Electronically Signed: Rhiannon Molina MD at 2:07 EDT , Chest x-ray as interpreted by the emergency medicine physician reveals bibasilar atelectasis with a left small pleural effusion without acute infiltrate or pneumothorax Discharge Plan Triage Chief Complaint: General Illness ED Provider: Anam Herrera Dx/Rx/DC Orders Clinical Impression: Lytic bone lesions on xray, Muscle pain, myofascial, CAD (coronary artery disease), Essential hypertension, Mixed hyperlipidemia Instructions: ED Bone Cyst, ED Myalgias Prescriptions: New doxycycline hyclate 100 mg capsule 100 mg PO BID 7 Days Qty: 14 0RF oxycodone-acetaminophen [Percocet] 5-325 mg tablet 1 tab PO Q6H PRN (Reason: pain) 5 Days Qty: 20 0RF prednisone 10 mg tablet 10 mg PO DAILY Qty: 30 0RF Rx Instructions: 4 po qd x 3 days, 3 po qd x 3 days, 2 po qd x 3 days, 1 po qd x 3 days No Action aspirin [Adult Low Dose Aspirin] 81 mg tablet,delayed release (DR/EC) 81 mg PO DAILY metoprolol tartrate 25 mg tablet 25 mg PO DAILY famotidine [Pepcid] 20 mg tablet 20 mg PO DAILY Qty: 30 11RF prednisone 10 mg tablet 10 mg PO DIRECTED Rx Instructions: see taper instructions amlodipine 2.5 MG tablet 2.5 mg PO DAILY acetaminophen 500 MG tablet 500 - 1,000 mg PO Q6H PRN PRN (Reason: Pain) fluticasone propionate 1 SPRAY spray,suspension 1 spray NASAL BID PRN (Reason: ALLERGY SX) finasteride 5 MG tablet 5 mg PO DAILY Centrum Silver 1 EACH tablet 1 ea PO DAILY PreserVision AREDS-2 1 EACH capsule 1 ea PO BID clopidogrel [Plavix] 75 mg tablet 75 mg PO .COMPLEX Qty: 90 3RF Rx Instructions: 75 mg orally Tuesday morning (04/03/23) take Loading dose of 4 tablets (300 mg), then take 1 tablet by mouth daily; Primary Care Provider: Mariano Ocampo Referrals: Dwight Delgado DO [Med Staff - Active Staff] - Mariano Ocampo MD [Primary Care Provider] - Activity Restrictions/Additional Instructions: Your laboratory studies show your inflammatory markers to be elevated and your CT scan showed lesions to your bone concerning for potential cancer. Secondary to this follow-up with oncology to discuss further testing. Stop the tramadol and begin taking the oxycodone/Percocet for improved pain control. As your CT scan also questions developing pneumonia take the doxycycline as directed. Return to the ER should you have any further concerns Print Language: Bermudian Disposition Disposition: Home, Self Care Discharge Date/Time: 07/22/23 03:13
[2023-07-22 03:12] VITALS: BP 115/54; PULSE 70; RESP 18; TEMP 36.3; O2SAT 95
[2023-07-26 10:18] LABS: Pathologist Review Reviewed
== END 2023-07-22 03:13 | disposition home or self-care (01) ==
PROVIDERS: Emergency Provider Emergency Medicine; PCP Internal Medicine; Visit Provider Emergency Medicine
DX: M89.9 Disorder of bone, unspecified (principal); M79.18 Myalgia, other site; Z11.52 Encounter for screening for COVID-19; I25.10 Atherosclerotic heart disease of native coronary artery without angina pectoris; R10.9 Unspecified abdominal pain; I10 Essential (primary) hypertension; E78.2 Mixed hyperlipidemia; G47.33 Obstructive sleep apnea (adult) (pediatric)
CPT/HCPCS: 71046; 74177; 80048; 81001; 82550; 83605; 85025; 85652; 86140; 87631; 96361; 96374; 96375; 99283; J7030; Q9967; A4216

== ENCOUNTER → 2023-08-09 | Outpatient (CLI) | payer MEDICARE, SELFPAY ==
[2023-01-26 08:33] VITALS: BMI 23.8
--- NOTE | 2023-08-09 09:33 | RAD_ITS ---
INDICATION: CARTAGENA, Cough EXAMINATION/TECHNIQUE: X-RAY - XR Chest 2 Views COMPARISON: Prior study dated: 07/22/2023 FINDINGS: LINES/DEVICES: None. LUNGS: Improved left lower lung infiltrate/atelectasis. Resolved left pleural effusion. MEDIASTINUM AND CARDIOVASCULAR STRUCTURES: Cardiac silhouette not enlarged. Central airways and mediastinal contour are unremarkable. BONES AND SOFT TISSUES: Unremarkable. RAD/Chest PA and Lateral IMPRESSION: Improved left basilar infiltrate/atelectasis and resolved left pleural effusion. Electronically Signed: Oneil Renae MD at 9:50 EDT ,
[2023-08-09 10:25] LABS: Absolute Lymphocyte Count 0.96 X10^3/uL (0.83-4.51); Absolute Neutrophil Count 2.6 X10^3/uL (2.0-7.7); Basophil# 0.04 X10^3/uL; Basophil% 0.8 % (0-1); Eosinophil# 0.22 X10^3/uL; Eosinophils% 4.5 % (0-5); Hematocrit 42.2 % (40-54); Hemoglobin 13.2 g/dL (13.0-16.5); Lymphocyte # 0.96 X10^3/ul (0.83-4.51); Lymphocyte % 19.6 % (19-41); Mean Corp Hgb Conc 31.3 g/dL (32-36); Mean Corpuscular Hgb 30.1 pg (27.0-32.0); Mean Corpuscular Volume 96.1 fL (80-94); Mean Platelet Vol. 10.3 fl (6.2-12.0); Monocyte% 20.4 % (0-10); NRBC Flagged by Analyzer 0 % (0-5); Neutrophil # 2.64 X10^3/uL (2.7-7.7); Neutrophil % 54.1 % (47-70); Platelet Count 224 K/mm3 (150-450); RBC Distribution Width CV 15.2 % (11.6-14.6); RBC Distribution Width SD 53.9 fl (35.1-43.9); Red Blood Count 4.39 M/mm3 (4.6-6.2); White Blood Count 4.9 K/mm3 (4.4-11.0)
[2023-08-09 10:56] LABS: Anion Gap 6 (5-15); BUN 23 mg/dL (7-18); BUN/Creat Ratio 20.9 RATIO (10-20); Calcium,Total 9.1 mg/dL (8.5-10.1); Chloride 106 mmol/L (98-107); EST Glomerular Filtration Rate 68 mL/min (>60); Est Glom Filt Rate - Afr Amer 82 mL/min (>60); Glucose 134 mg/dL (74-106); Potassium 4.1 mmol/L (3.5-5.1); Sodium Level 140 mmol/L (136-145)
[2023-08-09 12:07] LABS: BNP,B-Type NATRIURETIC PEPTIDE 149.3 pg/mL (0-100)
== END | disposition home or self-care (01) ==
LOC: RAD 09:32
PROVIDERS: PCP Internal Medicine; Referring Provider Nurse Practitioner Gerontology; Visit Provider Nurse Practitioner Gerontology
DX: R06.09 Other forms of dyspnea (principal); R05.9 Cough, unspecified
CPT/HCPCS: 36415; 71046; 80048; 83880; 85025

== ENCOUNTER → 2023-08-17 | Outpatient (CLI) | payer MEDICARE, SELFPAY ==
[2023-01-26 08:33] VITALS: BMI 23.8
[2023-08-17 13:56] LABS: Anion Gap 4 (5-15); BUN 21 mg/dL (7-18); BUN/Creat Ratio 21.5 RATIO (10-20); Calcium,Total 9.4 mg/dL (8.5-10.1); Chloride 109 mmol/L (98-107); Creatinine, Serum 0.98 mg/dL (0.70-1.30); EST Glomerular Filtration Rate 78 mL/min (>60); Est Glom Filt Rate - Afr Amer 94 mL/min (>60); Glucose 69 mg/dL (74-106); Potassium 4.5 mmol/L (3.5-5.1); Sodium Level 141 mmol/L (136-145)
== END | disposition home or self-care (01) ==
LOC: LAB 11:32
PROVIDERS: PCP Internal Medicine; Referring Provider Nurse Practitioner Gerontology; Visit Provider Nurse Practitioner Gerontology
DX: R06.09 Other forms of dyspnea (principal)
CPT/HCPCS: 36415; 80048

== ENCOUNTER → 2023-09-07 | Outpatient (CLI) | payer MEDICARE, SELFPAY ==
[2023-01-26 08:33] VITALS: BMI 23.8
--- NOTE | 2023-09-07 15:00 | ECHOD_ITS ---
Version 2 Reason For Study: DYSPNEA Procedure This was a 2D Doppler, Color Flow transthoracic echocardiogram. Exam performed in department. Left Ventricle Normal left ventricle. Left ventricular systolic function is normal. The left ventricular ejection fraction is 65 %. Stage 1 diastolic dysfunction. No regional wall motion abnormalities noted. Right Ventricle Normal RV size. Normal systolic function. Atria The left atrium is mildly enlarged. Normal right atrium. Mitral Valve Normal mitral valve. Mild (1+) eccentric mitral valve insufficiency. Tricuspid Valve Normal tricuspid valve. Mild (1+) tricuspid valve insufficiency. Pulmonary artery systolic pressure is 33 mmHg. Aortic Valve Trisinus/trileaflet aortic valve. Mild focal aortic valve calcification. Peak aortic valve gradient 17 mmHg. Mean aortic valve gradient 10 mmHg. Mild aortic stenosis. Pulmonic Valve Normal pulmonic valve. Great Vessels Normal aortic root. The pulmonary artery is normal size. Normal inferior vena cava. Pericardium/Pleural No pericardial effusion. MMode/2D Measurements & Calculations LVIDd: 4.8 cm IVSd: 0.94 cm LVOT diam: 2.1 cm LVIDs: 3.1 cm LVPWd: 1.0 cm LVOT area: 3.4 cm2 RVDd: 3.6 cm FS: 36.0 % Ao root diam: 3.3 cm LAV(MOD-bp): 75.0 ml LVAd ap4: 27.9 cm2 LAV(MOD-bp) Indexed: 42.8 ml/m2 LVLd ap4: 8.1 cm LAV(MOD-sp2): 72.3 ml EDV(MOD-sp4): 79.4 ml LAV(MOD-sp4): 73.8 ml EDV(sp4-el): 82.1 ml LVAs ap4: 15.2 cm2 LVLs ap4: 6.8 cm ESV(MOD-sp4): 30.7 ml ESV(sp4-el): 28.7 ml EF(MOD-sp4): 61.3 % EF(sp4-el): 65.0 % LVAd ap2: 29.1 cm2 SV(MOD-sp4): 48.7 ml SV(MOD-sp2): 55.2 ml LVLd ap2: 8.2 cm EDV(MOD-sp2): 84.5 ml EDV(sp2-el): 87.2 ml LVAs ap2: 15.2 cm2 LVLs ap2: 6.9 cm ESV(MOD-sp2): 29.3 ml ESV(sp2-el): 28.5 ml EF(MOD-sp2): 65.3 % SV(sp4-el): 53.3 ml LA dimension(2D): 3.9 cm LA A4 area: 23.4 cm2 RA A4 area: 17.9 cm2 TAPSE: 1.8 cm Time Measurements MV dec time: 0.23 sec Doppler Measurements & Calculations MV E max siddharth: 92.5 cm/sec Lat Peak E' Siddharth: 6.9 cm/sec Med Peak E' Siddharth: 8.2 cm/sec MV A max siddharth: 103.2 cm/sec E/E' lat: 13.5 E/E' med: 11.3 MV E/A: 0.90 MV V2 max: 103.3 cm/sec MV P1/2t max siddharth: 101.4 cm/sec Ao V2 max: 208.9 cm/sec MV max P.3 mmHg MV P1/2t: 81.4 msec Ao max P.5 mmHg MV V2 mean: 51.2 cm/sec Ao V2 mean: 149.1 cm/sec MV mean P.3 mmHg MV dec slope: 364.9 cm/sec2 Ao mean P.8 mmHg MV V2 VTI: 42.8 cm MVA(P1/2t): 2.7 cm2 Ao V2 VTI: 52.5 cm AV (velocity ratio): 0.57 MVA(VTI): 2.4 cm2 ANGELICA(I,D): 1.9 cm2 ANGELICA(V,D): 2.0 cm2 LV V1 max: 122.3 cm/sec MR max siddharth: 437.8 cm/sec SV(LVOT): 101.0 ml LV V1 max P.0 mmHg MR max P.8 mmHg LV V1 mean P.3 mmHg MR mean siddharth: 373.1 cm/sec LV V1 mean: 85.3 cm/sec MR mean P.5 mmHg LV V1 VTI: 29.8 cm MR VTI: 170.4 cm PA V2 max: 81.4 cm/sec TR max siddharth: 265.9 cm/sec PA V2 mean: 60.1 cm/sec TR max P.3 mmHg ECHO/Echo Complete Interpretation Summary Normal left ventricle. Left ventricular systolic function is normal. The left ventricular ejection fraction is 65 %. Mean aortic valve gradient 10 mmHg. Mild aortic stenosis. Stage 1 diastolic dysfunction. Pulmonary artery systolic pressure is 33 mmHg. Mild focal aortic valve calcification. Ordering Physician: Sharyn Gonzalez Referring Physician: Mariano Ocampo Performed By: Alicia Rizo, REVA, RVT
== END | disposition home or self-care (01) ==
PROVIDERS: PCP Internal Medicine; Visit Provider Nurse Practitioner Gerontology
DX: R06.09 Other forms of dyspnea (principal)
CPT/HCPCS: 93306

== ENCOUNTER → 2024-02-21 | Outpatient (CLI) | payer MEDICARE, SELFPAY ==
[2023-01-26 08:33] VITALS: BMI 23.8
== END | disposition home or self-care (01) ==
LOC: PSN 12:00
PROVIDERS: PCP Internal Medicine; Referring Provider Nurse Practitioner Gerontology; Visit Provider Nurse Practitioner Gerontology
DX: R00.1 Bradycardia, unspecified (principal); R42 Dizziness and giddiness
CPT/HCPCS: 93225; 93226

== ENCOUNTER → 2024-08-09 | Outpatient (CLI) | payer MEDICARE, SELFPAY ==
[2023-01-26 08:33] VITALS: BMI 23.8
[2024-08-09 11:20] LABS: Anion Gap 12 (5-15); BUN 24 mg/dL (4-19); BUN/Creat Ratio 21.7 RATIO (10-20); Calcium,Total 9.5 mg/dL (7.6-11.0); Carbon Dioxide 25.8 mmol/L (21.0-32.0); Chloride 104 mmol/L (98-108); Cholesterol 107 mg/dL (<=200); Creatinine, Serum 1.09 mg/dL (0.70-1.20); EST Glomerular Filtration Rate 66 (>60); Glucose 104 mg/dL (70-99); High Density Lipoprotein 33 mg/dL; Low Density Lipoprotein Calc. 51 mg/dL; Potassium 4.3 mmol/L (3.3-5.1); Sodium Level 142 mmol/L (133-145); Triglycerides 116 mg/dL; Very Low Density Lipoprotein 23 mg/dL (5-40); cholesterol:hdl ratio screen 3.27
== END | disposition home or self-care (01) ==
PROVIDERS: PCP Internal Medicine; Referring Provider Student in an Organized Health Care Education/Training Program; Visit Provider Student in an Organized Health Care Education/Training Program
DX: E78.2 Mixed hyperlipidemia (principal)
CPT/HCPCS: 36415; 80048; 80061

== ENCOUNTER → 2024-09-04 | Outpatient (CLI) | payer MEDICARE, SELFPAY ==
[2023-01-26 08:33] VITALS: BMI 23.8
--- OUTSIDE RECORDS SUMMARY | 2024-09-04 06:34 | XMS RPT_ITS | CCD ---
Author Organization [facility] CliniSyfl Care Team Providers Care Learning Consultant Name Role Phone Mariano Ocampo MD Primary Care Provider Dr. Mariano Ocampo Primary Care Provider Barry Amin Attending Provider Unavailable Dr. Mariano Ocampo Referring Provider Dr. Jasper Gee Attending Provider Mariano Ocampo Primary Care Provider Dr. Fili Kiser Attending Provider CLAYTON AYON Attending Unavailable CLAYTON AYON Admitting Unavailable MARIANO OCAMPO Primary Care Unavailable ALOK WHITEHEAD Attending Unavailable MARIANO OCAMPO Primary Care Unavailable CLAYTON AYON Attending Unavailable JASPER GEE Referring Unavailable MARIANO OCAMPO Primary Care Unavailable Mariano Ocampo MD Primary Care Provider Dr. Bryce Mina Referring Provider [phone] SANDY Edmond Attending Provider SANDY Edmond Referring Provider Dr. Mariano Ocampo Primary Care Provider Dr. Anthony Poe Attending Provider Dr. Hieu Osorio Attending Provider Dr. Mariano Ocampo Primary Care Provider Dr. Mariano Ocampo Referring Provider Dr. Jasper Gee Attending Provider Dr. Mariano Ocampo Primary Care Provider Dr. Mariano Ocampo Referring Provider Dr. Anthony Poe Attending Provider Dr. Jasper Gee Attending Provider Dr. Hieu Osorio Attending Provider Carlos RADIOLOGY ASSISTANT, RADIOLOGY ASSISTANT-C Sharyn Attending Provider Dr. Mariano Ocampo Primary Care Provider Dr. Mariano Ocampo Referring Provider Mariano Ocampo MD Primary Care Provider IAM JUAREZ Referring Unavailable MARIANO OCAMPO Primary Care Unavailable CHELE DOUGLAS Attending Unavailable CHELE DOUGLAS Admitting Unavailable MARIANO OCAMPO Primary Care Unavailable Gerard PACHECO, Jasper Duffy Unavailable Yani PROTOTYPE ENGINEER MANAGER.CONTRACT CLERK, Yamel M Unavailable Lora PACHECO, Master Unavailable Cruzito Young RN Unavailable Dr. Mariano Ocampo MD Primary Care Provider Dr. Mariano Ocampo MD Referring Provider Rufus Brenner Attending Provider Rufus Quintana Attending Unavailable Mariano Ocampo Referring Unavailable Ocampo, Mariano Primary Care Unavailable Terrence, Mariano Primary Care Unavailable Carlos RADIOLOGY ASSISTANT, Sharyn Attending Unavailable Carlos RADIOLOGY ASSISTANT, Sharyn Attending Unavailable Carlos JAIME, Sharyn Referring Unavailable Terrence, Mariano Primary Care Unavailable Rufus Quintana Attending Unavailable Terrence, Mariano Primary Care Unavailable Rufus Quintana Referring Unavailable Jasper Gee Attending Unavailable Terrence, Mariano Primary Care Unavailable Carlos RADIOLOGY ASSISTANT, Sharyn Attending Unavailable Ocampo, Mariano Primary Care Unavailable Ocampo, Mariano Primary Care Unavailable Casey Grayson Attending Unavailamelia e Carlos RADIOLOGY ASSISTANT, Sharyn Referring Unavailable Terrence, Mariano Referring Unavailable Carlos RADIOLOGY ASSISTANT, Sharyn Attending Unavailable Terrence, Mariano Primary Care Unavailable Demiter PA, Rufus Referring Provider OCAMPO, MARIANO Lake Primary Care Unavailable ABRAMOVICH, MASTER Referring Unavailable CLAYTON GILL Attending Unavailable OCAMPO, SHERLY Primary Care Unavailable OCAMPO, SHERLY Referring Unavailable OCAMPO, SHERLY Primary Care Unavailable ABRAMOVICH, MASTER Referring Unavailable OCAMPO, SHERLY Primary Care Unavailable OCAMPO, SHERLY Attending Unavailable OCAMPO, SHERLY Primary Care Unavailable ABRAMOVICH, MASTER Referring Unavailable JAZMYN ELLISON Attending Unavailable OCAMPO, SHERLY Primary Care Unavailable ABRAMOVICH, MASTER Referring Unavailable OCAMPO, SHERLY Primary Care Unavailable ABRAMOVICH, MASTER Referring Unavailable OCAMPO, SHERLY Primary Care Unavailable ABRAMOVICH, MASTER Referring Unavailable ABRAMOVICH, MASTER Attending Unavailable OCAMPO, SHERLY Primary Care Unavailable ABRAMOVICH, MASTER Referring Unavailable OCAMPO, SHERLY Primary Care Unavailable ABRAMOVICH, MASTER Referring Unavailable OCAMPO, SHERLY Primary Care Unavailable ABRAMOVICH, MASTER Referring Unavailable OCAMPO, SHERLY Primary Care Unavailable ABRAMOVICH, MASTER Referring Unavailable OCAMPO, SHERLY Primary Care Unavailable JAZMYN ELLISON Referring Unavailable OCAMPO, SHERLY Primary Care Unavailable ABRAMOVICH, MASTER Referring Unavailable JAZMYN ELLISON Attending Unavailable OCAMPO, SHERLY Primary Care Unavailable OCAMPO, SHERLY Referring Unavailable OCAMPO, SHERLY Primary Care Unavailable ABRAMOVICH, MASTER Referring Unavailable OCAMPO, SHERLY Primary Care Unavailable OCAMPO, HSERLY Attending Unavailable OCAMPO, SHERLY Primary Care Unavailable OCAMPO, SHERLY Referring Unavailable OCAMPO, SHERLY Primary Care Unavailable OCAMPO, SHERLY Referring Unavailable OCAMPO, SHERLY Primary Care Unavailable ABRAMOVICH, MASTER Referring Unavailable OCAMPO, SHERLY Primary Care Unavailable ABRAMOVICH, MASTER Referring Unavailable ABRAMOVICH, MASTER Attending Unavailable OCAMPO, SHERLY Primary Care Unavailable ABRAMOVICH, MASTER Referring Unavailable OCAMPO, SHERLY Primary Care Unavailable ABRAMOVICH, MASTER Referring Unavailable JAZMYN ELLISON Attending Unavailable Allergies Allergy Classification Reported Allergen(s) Allergy Type Date of Onset Reaction(s) Facility (20 sources) gabapentin; Translations: [GABAPENTIN] Drug Allergy 5 Shortness of Breath, Other: See Comments [facility] (20 sources) meloxicam; Translations: [MELOXICAM] Drug Allergy 7 GI Upset [facility] Work Phone: (20 sources) Sulfonamides (Antibiotic); Translations: [SULFA (SULFONAMIDE ANTIBIOTICS)] Propensity to adverse reactions 6 [facility] (15 sources) Sulfonamides (Antibiotic) Allergy to substance 3 Unknown [facility] (9 sources) meloxicam Drug Allergy 3 [facility] (3 sources) atorvastatin Drug Allergy 4 Myalgias [facility] (20 sources) ezetimibe; Translations: [EZETIMIBE] Drug Allergy 4 Other: See Comments [facility] (1 source) ezetimibe Drug Allergy 5 [facility] (1 source) gabapentin Drug Allergy 5 [facility] (1 source) meloxicam Drug Allergy 5 [facility] (1 source) Sulfonamides (Antibiotic) Drug allergy (disorder) 5 [facility] Medications Current Medications Medication Drug Class(es) Dates Sig (Normalized) Sig (Original) [id number] 200 actuat albuterol 0.09 mg/actuat metered dose inhaler (20 sources) beta2-Adrenergic Agonist Start: 08-20-2023 take 2 puff(s) by inhalation every six hours as needed for wheezing albuterol HFA (PROVENTIL HFA, VENTOLIN HFA) 90 mcg/actuation inhaler Indications: Bronchospasm Inhale 2 Puffs as instructed every 6 hours as needed for wheezing/shortness of breath. 18 g 08/20/2023 Active amLODIPine 2.5 mg oral tablet (20 sources) Dihydropyridine Calcium Channel Carlos Start: 02-06-2024 take 1 tablet by mouth once daily Amlodipine 5 mg tablet Active 5 mg PO daily February 06, 2024 1:00am Start: 08-18-2018 End: 06-05-2024 take 1 tablet by mouth once daily amLODIPine (NORVASC) 2.5 mg tablet Indications: Essential hypertension Take 1 tablet by mouth once daily. 90 tablet 3 06/05/2024 Active Comment on above: Take 1 tablet by esther th once daily. aspirin 81 mg delayed release oral tablet (20 sources) Platelet Aggregation Inhibitor, Nonsteroidal Anti-inflammatory Drug Start: 10-22-2022 Aspirin (Adult Low Dose Aspirin) 81 mg tablet,delayed release (DR/EC) Active 81 mg PO DAILY October 22, 2022 12:00am Start: 09-21-2022 End: 09-21-2022 aspirin EC tablet 81 mg Comment on above: Take 81 mg by mouth. atorvastatin 40 mg oral tablet (20 sources) HMG-CoA Reductase Inhibitor Start: take 1 tablet by mouth once daily at bedtime for hyperlipidemia atorvastatin (LIPITOR) 40 mg tablet Indications: Hyperlipidemia, unspecified hyperlipidemia type Take 1 tablet by mouth daily at bedtime. For cholesterol. 12/01/2023 Active Start: 08-09-2023 End: 11-07-2023 take 1 tablet by mouth at bedtime Atorvastatin 40 mg t ablet Active 40 mg PO AT BEDTIME 90 November 07, 2023 11:21am Start: 04-07-2023 End: 12-01-2023 atorvastatin (LIPITOR) 80 mg tablet Take 40 mg by mouth daily at bedtime. For cholesterol. 04/07/2023 12/01/2023 Discontinued (Dosage adjustment) Start: 04-07-2023 take 0.5 tablet by m outh once daily at bedtime for hyperlipidemia atorvastatin (LIPITOR) 80 mg tablet Take 0.5 tablets by mouth daily at bedtime. For cholesterol. 04/07/2023 Active Start: 11-11-2022 End: 03-30-2023 Atorvastatin 40 mg tablet Discontinued 40 mg PO .COMPLEX February 09, 2023 10:53am March 30, 2023 3:28pm 40 mg orally take 1/2 tablet daily once a day.; Start: 11-11-2022 End: 02-09-2023 Atorvastatin Discontinued 80 MG PO .COMPLEX November 11, 2022 12:00am February 09, 2023 10:53am 80 mg orally take 1/2 tablet daily once a day.; Start: 10-22-2022 End: 11-11-2022 Atorvastatin 10 mg tablet Discontinued 80 mg PO AT BEDTIME October 22, 2022 1:08pm November 11, 2022 6:30pm Start: 10-22-2022 End: 11-11-2022 take 80 mg by mouth at bedtime Atorvastatin Discontinu ed 80 MG PO AT BEDTIME October 22, 2022 1:08pm November 11, 2022 6:30pm Start: 10-21-2022 take 1 tablet by esther th once daily at bedtime for hyperlipidemia atorvastatin (LIPITOR) 80 mg tablet Take 1 tablet by mouth daily at bedtime. For cholesterol. 0 10/21/2022 Active Start: 09-21-2022 End: 09-21-2022 atorvastatin (Lipitor) table t 80 mg Start: 09-21-2022 End: 09-21-2023 take 1 tablet by mouth once daily atorvastatin (Lipito r) 80 MG tablet Take 1 tablet (80 mg) by mouth Nightly. 30 tablet 11 09/21/2022 09/21/2023 Active Start: 08-18-2018 End: 10-22-2022 take 1 tablet by mouth at bedtime Atorvastatin 10 MG t ablet Discontinued 10 mg PO AT BEDTIME August 18, 2018 12:00am October 22, 2022 1:09pm Comment on above: Take 1 tablet by esther th daily at bedtime. Take 1 tablet by esther th daily at bedtime. For cholesterol. Take 0.5 tablets by mouth daily at bedtime. For cholesterol. clopidogrel 75 mg oral tablet (20 sources) P2Y12 Platelet Inhibitor Start: End: take 1 tablet by mouth once daily clopidogrel (PLAVIX) 75 mg tablet Take 1 tablet by mouth once daily. 03/30/2023 Active Comment on above: Take 1 tablet by esther th once daily. enzalutamide 40 mg oral capsule (20 sources) Androgen Receptor Inhibitor Start: take 1 capsule by mouth once daily Enzalutamide (Xtandi) 40 mg capsule Active 160 mg PO daily July 17, 2024 12:00am Start: 05-10-2024 take 4 capsules by m outh once daily enzalutamide (XTANDI) 40 mg capsule Take 4 capsules (160 mg) by mouth once daily. 120 capsule 11 07/25/2024 10:22 AM EDT 05/10/2024 Active famotidine 20 mg oral tablet (20 sources) Histamine-2 Receptor Antagonist Start: 02-09-2023 End: 03-05-2024 take 1 tablet by mouth once famotidine (PEPCID) 20 mg tablet Take 1 tablet by mouth every afternoon. 03/31/2023 Active Comment on above: Take 1 tablet by esther th every afternoon. finasteride 5 mg oral tablet (20 sources) 5-alpha Reductase Inhibitor Start: 08-18-2018 End: 01-20-2024 take 1 tablet by mouth once daily finasteride (PROSCAR) 5 mg tablet Indications: BPH with obstruction/lower urinary tract symptoms Take 1 tablet by mouth once daily. 90 tablet 3 01/20/2024 Active Comment on above: Take 1 tablet by esther th once daily. hydroCHLOROthiazide 25 mg oral tablet (3 sources) Thiazide Diuretic Start: 07-17-2024 take 1 tablet by mouth once daily in the morning hydroCHLOROthiazide 25 mg tablet Take 25 mg by mouth every morning. 07/17/2024 Active Inhalational Spacing Device (1 source) Start: 08-20-2023 End: 08-20-2023 Inhalational Spacing Device Indications: Bronchospasm 1 Device one time only for 1 dose. 1 Each 0 08/20/2023 08/20/2023 Active ketoconazole 20 mg/ml medicated shampoo (20 sources) Azole Antifungal Start: 12-07-2016 ketoconazole (NIZORAL) 2 % shampoo WASH FACE AND EARS - AND LET SIT FOR 5 MINUTES as directed ALTERN... (REFER TO PRESCRIPTION NOTES). 0 12/07/2016 Active Comment on above: WASH FACE AND EARS - AND LET SIT FOR 5 MINUTES as directed ALTERN... (REFER TO PRESCRIPTION NOTES). loratadine 10 mg oral tablet (20 sources) Start: 05-02-2023 take 1 tablet by mouth once daily loratadine (CLARITIN) 10 mg tablet Indications: Sinobronchitis Take 1 tablet by mouth once daily. 05/02/2023 Active Comment on above: Take 1 tablet by esther th once daily. Multiple Vitamins-Minerals (CENTRUM SILVER PO) (9 sources) Multiple Vitamins-Minerals (CENTRUM SILVER PO) Take by mouth. 0 Active Multiple Vitamins-Minerals (PRESERVISION AREDS 2 PO) (9 sources) Multiple Vitamins-Minerals (PRESERVISION AREDS 2 PO) Take by mouth. 0 Active multivitamin/iron/folic acid (CENTRUM COMPLETE ORAL) (20 sources) take 1 tablet by mouth once daily multivitamin/iron/foli c acid (CENTRUM COMPLETE ORAL) Take 1 tablet by mouth once daily. Active nitroglycerin 0.4 mg sublingual tablet (20 sources) Nitrate Vasodilator Start: 09-21-2022 nitroglycerin sublingual (NITROQUICK) 0.4 mg SL tablet dissolve 1 tablet under the tongue every 5 minutes if needed for ... (REFER TO PRESCRIPTION NOTES). 09/21/2022 Active Start: 09-20-2022 End: 09-21-2023 nitroglycerin (Nitrostat) 0. [address] 1 tablet (0.4 mg) under the tongue every 5 minutes as needed for chest pain. X 3 doses then call 911 90 tablet 12 09/21/2022 09/21/2023 Active Comment on above: dissolve 1 tablet un joseph the tongue every 5 minutes if needed for ... (REFER TO PRESCRIPTION NOTES). tamsulosin hydrochloride 0.4 mg oral capsule (20 sources) alpha-Adrenergic Carlos Start: 12-01-19 End: 05-03-19 25 take 1 capsule by mouth once daily at bedtime tamsulosin (FLOMAX) 0.4 mg Indications: BPH with obstruction/lower urinary tract symptoms Take 1 capsule by mouth daily at bedtime. 90 capsule 1 05/03/2024 Active terbinafine (1 source) Allylamine Antifungal End: 08-12-19 23 TERBINAFINE HCL ORAL Take by mouth. 2 day for 1 week for 1 month 0 08/11/2022 Active Comment on above: Take by mouth. 2 day for 1 week for 1 month traMADol hydrochloride 50 mg oral tablet (20 sources) Opioid Agonist Start: 05-19-19 24 End: 11-15-19 24 take 1 tablet by mouth once daily as needed for pain traMADol (ULTRAM) 50 mg tablet Indications: Cervical pain , DDD (degenerative disc disease), lumbar Take 1 tablet by mouth once daily as needed for pain for up to 180 days. 05/19/2023 11/15/2023 Active Start: 12-09-2022 End: 12-01-2023 take 1 tablet by mouth every six hours as needed for pain traMADol (ULTRAM) 50 mg tablet Indications: Cervical pain , DDD (degenerative disc disease), lumbar Take 1 tablet by mouth every 6 hours as needed for pain for up to 7 days. 28 tablet 0 12/10/2022 12/17/2022 Active Comment on above: Take 1 tablet by esther th every 6 hours as needed for pain for up to 7 days. Take 1 tablet by esther th every 6 hours as needed for pain. Take 1 tablet by esther th once daily as needed for pain for up to 180 days. Vit C,Q-Ya-Sylee-Lutein -Zeaxan (Preservision Areds 2 Softgel) 1 EACH capsule (15 sources) Start: 08-18-2018 take 2 capsules by mouth twice daily Vit C,N-Dn-Wmnyo-Lutei n-Zeaxan (Preservision Areds 2 Softgel) 1 EACH capsule Active 1 NMA PO TWICE A DAY August 18, 2018 12:00am Start: 08-18-2018 take 2 capsules by m outh twice daily Vit C,B-Lv-Tvhjt-Lutein-Zeaxan (Preservision Areds 2 Softgel) 1 EACH capsule Active 1 EACH PO TWICE A DAY August 17, 2018 11:00pm Start: 08-18-2018 take 2 capsules by m outh twice daily Vit C,N-At-Rkqkb-Lutein-Zeaxan (Preservision Areds 2 Softgel) 1 EACH capsule Active 1 EACH PO TWICE A DAY August 18, 2018 12:00am VIT C/DL-E AC/LUT/COPPER/ZNOX (PRESERVISION ORAL) (20 sources) Start: 05-25-2010 take 1 tablet by mouth twice daily before mealtime VIT C/DL-E AC/LUT/COPPER/ZNOX (PRESERVISION ORAL) Take 1 tablet by mouth two times a day. 05/25/2010 Active Start: 05-25-2010 take 1 tablet by esther th twice daily before mealtime VIT C/DL-E AC/LUT/COPPER/ZNOX (PRESERVISION ORAL) Take 1 tablet by mouth two times a day. 0 05/25/2010 Active Start: 05-25-2010 take 1 dose by mouth once daily before mealtime VIT C/DL-E AC/LUT/COPPER/ZNOX (PRESERVISION ORAL) Take 1 Each by mouth once daily. 0 05/25/2010 Active Comment on above: Take 1 Each by mouth once daily. Completed/Discontinued Medications Medication Drug Class(es) Dates Sig (Normalized) Sig (Original) acetaminophen 325 mg oral tablet (20 sources) Start: 11-24-2023 End: 11-24-2023 take 1 dose by mouth once as needed for pain, then take 4000 mg by mouth once daily as needed for pain 650 mg, ORAL, ONCE, 1 dose, On Camille 11/24/23 at 1030, No more than 4000 mg of acetaminophen should be given per day (FROM ALL SOURCES), If ordered PRN for pain, patient/guardian may elect to receive this medication for higher pain levels INSTEAD of the opioid, if preferred: N/A Start: 09-20-2022 End: 09-21-2022 take 1 tablet by mouth every four hours as needed for pain acetaminophen (Tylenol) tablet 650 mg Start: 08-18-2018 take 500-1000 mg by mouth every six hours as needed for pain Acetaminophen 500 MG tablet Active 500 - 1000 mg PO EVERY 6 HOURS NEEDED as needed for Pain August 18, 2018 12:00am acetaminophen (T YLENOL EXTRA STRENGTH ORAL) Take 1 tablet by mouth as needed. Active acetaminophen (T YLENOL EXTRA STRENGTH ORAL) Take 1 tablet by mouth as needed. 0 Active Comment on above: Take 1 tablet by esther th as needed. Acetaminophen / oxyCODONE (20 sources) Opioid Agonist Start: 08-09-2023 End: 08-09-2023 Oxycodone-Acetaminophen 5-300 mg tablet Discontinued 1 {tbl} PO EVERY 6 HOURS as needed August 09, 2023 12:00am August 09, 2023 9:01am Start: 07-22-2023 take 1 tablet by esther th every six hours as needed for pain Oxycodone-Acetaminophen (Percocet) 5-325 mg tablet Active 1 {tbl} PO EVERY 6 HOURS as needed for pain 31 07July 22, 2023 Start: 07-22-2023 End: 12-01-2023 take 1 tablet by mouth every four hours as needed oxyCODONE-acetaminophen (PERCOCET) 5-325 mg tablet Take 1 tablet by mouth every 4 hours as needed. 07/22/2023 12/01/2023 Discontinued Start: 07-22-2023 oxyCODONE-acet aminophen (PERCOCET) 5-325 mg tablet Take 1 tablet by mouth. 0 07/22/2023 Active ascorbic acid 500 mg chewable tablet (10 sources) Vitamin C Start: 09-20-2022 End: 09-21-2022 take 250 mg by mouth once daily 250 mg, Oral, Daily, First dose on Tue09/20/22 at 1415 take 1 tablet by mouth once erin y Ascorbic Acid (vitamin C) 250 MG tablet Take 250 mg by mouth daily. 0 Active bicalutamide 50 mg oral tablet (15 sources) Androgen Receptor Inhibitor Start: 07-29-2023 End: 01-31-2024 take 1 tablet by mouth once daily Bicalutamide 50 mg tablet Discontinued 50 mg PO DAILY August 09, 2023 12:00am January 31, 2024 11:06am cyclobenzaprine hydrochloride 10 mg oral tablet (3 sources) Muscle Relaxant Start: 07-22-2022 End: 10-21-2022 take 1 tablet by mouth twice daily as needed for muscle spasms cyclobenzaprine (FLEXERIL) 10 mg tablet Indications: Foot cramps Take 1 tablet by mouth twice daily as needed for muscle spasm. 30 tablet 0 07/22/2022 10/21/2022 Discontinued Comment on above: Take 1 tablet by esther twice daily as needed for muscle spasm. diazePAM 5 mg oral tablet (1 source) Benzodiazepine Start: 09-20-2022 End: 09-20-2022 diazePAM (Valium) tablet 5 mg Start: 09-20-2022 End: 09-20-2022 diazePAM (Valium) tablet 5 m g diphenhydrAMINE hydrochloride 25 mg oral tablet (1 source) Histamine-1 Receptor Antagonist Start: 09-20-2022 End: 09-20-2022 diphenhydrAMINE (BENADryl) tablet/capsule 25 mg Start: 09-20-2022 End: 09-20-2022 diphenhydrAMINE (BENADryl) t ablet/capsule 25 mg doxycycline hyclate 100 mg oral capsule (19 sources) Tetracycline-class Drug Start: 07-22-2023 End: 11-24-2023 take 1 capsule by mouth twice daily Doxycycline Hyclate 100 mg capsule Discontinued 100 mg PO TWICE A DAY 24 09July 22, 2023 12:00am August 09, 2023 9:20am ezetimibe 10 mg oral tablet (5 sources) Dietary Cholesterol Absorption Inhibitor Start: 03-30-2023 End: 04-05-2023 take 1 tablet by mouth once daily Ezetimibe 10 mg tablet Discontinued 10 mg PO DAILY March 30, 2023 1:00am April 05, 2023 4:19pm fluticasone propionate 0.05 mg/actuat metered dose nasal spray (20 sources) Corticosteroid Start: 09-20-2022 End: 09-21-2022 1 spray, Each Nostril, Daily, First dose on 09/20/22 at 1415 Shake gently. Before first use, prime pump (press 6 times until fine spray appears). After use, clean tip and replace cap. Start: 08-18-2018 Fluticasone Pr opionate 1 SPRAY spray,suspension Active 1 NMA NASAL TWICE A DAY as needed for ALLERGY SX August 18, 2018 12:00am Start: 08-18-2018 Fluticasone Pr opionate Active 1 SPRAY NASAL TWICE A DAY August 18, 2018 12:00am Start: 01-14-2012 take 2 spray(s) by m outh once daily as needed fluticasone 50 mcg/actuation nasal spray Use 2 Sprays in each nostril once daily as needed for Cold/Allergy Symptoms. Rinse mouth after use. 01/14/2012 Active take 1 spray(s) nasa l route once daily fluticasone (Flonase) 50 MCG/ACT nasal spray Administer 1 spray into each nostril daily. Shake gently. Before first use, prime pump. After use, clean tip and replace cap. 0 Active Comment on above: Use 2 Sprays in each nostril once daily as needed for Cold/Allergy Symptoms. Rinse mouth after use. folic acid/multivit-min /lutein (CENTRUM SILVER ORAL) (20 sources) End: 06-05-2024 take 1 tablet by mouth once as needed folic acid/multivit-min/lut ein (CENTRUM SILVER ORAL) Take 1 tablet by mouth as needed. 06/05/2024 Discontinued take 1 tablet by esther th once as needed folic acid/multivit-min/lutein (CENTRUM SILVER ORAL) Take 1 tablet by mouth as needed. Active take 1 tablet by esther th once as needed folic acid/multivit-min/lutein (CENTRUM SILVER ORAL) Take 1 tablet by mouth as needed. 0 Active take 1 tablet by mouth once erin y folic acid/multivit-min/lutein (CENTRUM SILVER ORAL) Take 1 tablet by mouth once daily. 0 Active furosemide 40 mg oral tablet (2 sources) Loop Diuretic Start: 08-09-2023 End: 01-31-2024 take 1 tablet by mouth once daily Furosemide (Lasix) 40 mg tablet Discontinued 40 mg PO DAILY August 09, 2023 12:00am January 31, 2024 11:06am 0.375 ml leuprolide acetate 60 mg/ml prefilled syringe (4 sources) Gonadotropin Releasing Hormone Receptor Agonist Start: 05-10-2024 End: 05-10-2024 inject 1 dose by subcutaneous injection once 22.5 mg, SUBCUTANEOUS, ONCE, 1 dose, On Camille 05/10/24 at 1000, Hazardous Chemotherapy Drug: Use appropriate PPE., Medication Substitution: [facility] preferred product has been replaced with the insurance mandated product Start: 02-16-2024 End: 02-16-2024 inject 1 dose by subcutaneous injection once 22.5 mg, SUBCUTANEOUS, ONCE, 1 dose, On Camille 02/16/24 at 1200, Hazardous Chemotherapy Drug: Use appropriate PPE., Medication Substitution: [facility] preferred product has been replaced with the insurance mandated product Start: 11-24-2023 End: 11-24-2023 inject 1 dose by subcutaneous injection once 22.5 mg, SUBCUTANEOUS, ONCE, 1 dose, On Camille 11/24/23 at 1000, Hazardous Chemotherapy Drug: Use appropriate PPE., Medication Substitution: [facility] preferred product has been replaced with the insurance mandated product Start: 09-01-2023 End: 09-01-2023 leuprolide 22.5 mg subcutane ous syringe (ELIGEOVANNA) lidocaine 0.05 mg/mg medicated patch (20 sources) Antiarrhythmic, Amide Local Anesthetic Start: 12-08-2022 End: 12-01-2023 apply 1 dose transdermal route every twenty-four hours lidocaine (LIDODERM) 5 % Indications: Cervical pain Apply 1 Patch as directed every 24 hours. Remove old patch prior to placing new patch. Location: upper back 30 Patch 2 12/08/2022 12/01/2023 Discontinued Comment on above: Apply 1 Patch as directed every 24 hours . Remove old patch prior to placing new patch. Location: upper back 24 hr metoprolol succinate 25 mg extended release oral tablet (20 sources) beta-Adrenergic Carlos Start: 12-05-2023 End: 02-24-2024 take 2 tablets by mouth once daily Metoprolol Succinate 25 mg tablet extended release 24 hr Discontinued 12.5 mg PO daily 45 December 05, 2023 12:00am February 24, 2024 5:11pm Start: 10-22-2022 End: 12-05-2023 take 1 tablet by mouth once daily Metoprolol Tartrate 25 mg tablet Discontinued 25 mg PO DAILY October 22, 2022 12:00am December 05, 2023 9:51am Start: 10-13-2022 take 1 tablet by esther th once daily at bedtime metoprolol succinate ER (TOPROL XL) 25 mg 24 hr tablet Take 12.5 mg by mouth daily at bedtime. 10/13/2022 Active Start: 09-30-2022 End: 09-30-2023 take 0.5 tablet by mouth once daily metoprolol succinate XL (Toprol-XL) 25 MG 24 hr tablet Take 0.5 tablets (12.5 mg) by mouth Nightly. Do not crush or chew. 45 tablet 3 09/30/2022 09/30/2023 Active Start: 09-21-2022 End: 09-21-2022 metoprolol succinate XL (Top rol-XL) 24 hr tablet 25 mg Start: 09-21-2022 End: 09-21-2023 take 1 tablet by mouth once daily at bedtime metoprolol succinate ER (TOPROL XL) 25 mg 24 hr tablet Take 25 mg by mouth daily at bedtime. 10/13/2022 Active Comment on above: Take 12.5 mg by mout h daily at bedtime. Izkpauvs-Etx-Ye-Lycop en-Lutein (Centrum Silver Tablet) 1 EACH tablet (15 sources) Start: 08-18-2018 End: 08-07-2024 Yexhmhwm-Ile-Ix-Lycopen-Monica tein (Centrum Silver Tablet) 1 EACH tablet Discontinued 1 NMA PO DAILY August 18, 2018 12:00am August 07, 2024 9:05am Start: 08-18-2018 Fwpdlgpd-Lqu-Y g-Hiavafo-Udoesx (Centrum Silver Tablet) 1 EACH tablet Active 1 EACH PO DAILY August 17, 2018 11:00pm Start: 08-18-2018 Jgstjkpa-Fau-P w-Fzhqkyc-Vsjmwf (Centrum Silver Tablet) 1 EACH tablet Active 1 EACH PO DAILY August 18, 2018 12:00am omeprazole 20 mg delayed release oral capsule (20 sources) Proton Pump Inhibitor Start: 12-05-2020 End: 02-09-2023 take 1 capsule by mouth once daily Omeprazole 20 mg capsule,delayed release(DR/EC) Discontinued 20 mg PO DAILY September 08, 2022 12:00am February 09, 2023 2:43pm Comment on above: Take 1 capsule by mo [facility] once daily. pantoprazole 40 mg delayed release oral tablet (16 sources) Proton Pump Inhibitor Start: 09-21-2022 End: 09-21-2022 take 40 mg by mouth once daily before breakfast 40 mg, Oral, Daily before breakfast, First dose on Tue09/21/22 at 0700 Substituted for omeprazole (Prilosec). &nbs p;Do not crush, chew, or split. Start: 08-18-2018 End: 09-08-2022 take 1 tablet by mouth once daily Pantoprazole 40 MG tablet Discontinued 40 mg PO DAILY August 18, 2018 12:00am September 08, 2022 10:04am perflutren lipid microsphere s 1.3 mL in NaCl (PF) 0.9% 10 mL injection (DEFINITY) (3 sources) Start: 07-22-2022 End: 10-21-2022 perflutren lipid microsphere s 1.3 mL in NaCl (PF) 0.9% 10 mL injection (DEFINITY) Start: 07-22-2022 End: 10-21-2023 perflutren lipid microsphere s 1.3 mL in NaCl (PF) 0.9% 10 mL injection (DEFINITY) predniSONE 10 mg oral tablet (20 sources) Start: 07-22-2023 End: 12-01-2023 take 4 tablets by mouth once daily, then take 3 tablets by mouth once daily, then take 2 tablets by mouth once daily, then take 1 tablet by mouth once daily Prednisone 10 mg tablet Discontinued 10 mg PO DAILY July 22, 2023 12:00am August 09, 2023 9:21am 4 po qd x 3 days, 3 po qd x 3 days, 2 po qd x 3 days, 1 po qd x 3 days Start: 05-02-2023 End: 05-07-2023 take 1 tablet by mouth once daily predniSONE (DELTASONE) 20 mg tablet Indications: Sinobronchitis Take 1 tablet by mouth once daily for 5 days. 5 tablet 0 05/02/2023 05/07/2023 Active Start: 12-22-2022 End: 08-09-2023 Prednisone 10 mg tablet Disc ontinued 10 mg PO As Directed December 22, 2022 12:00am August 09, 2023 9:21am see taper instructions Start: 12-09-2022 End: 12-27-2022 take 2 tablets by mouth once daily predniSONE (DELTASONE) 20 mg tablet Indications: Nonintractable paroxysmal hemicrania, unspecified chronicity pattern Take 2 tablets by mouth once daily. 28 tablet 0 12/09/2022 12/27/2022 Discontinued (Course of therapy completed) Comment on above: Take 2 tablets by mo [facility] once daily. Take 1 tablet by esther once daily for 5 days. psyllium 3400 mg powder for oral suspension (6 sources) Start: 01-17-20 End: 07-23-19 Psyllium Husk-Aspartame (METAMUCIL SUGAR-FREE, ASPART,) 3.4 gram/5.8 gram powd Take 2 Tablespoonsful by mouth every other day. 01/17/2020 07/22/2022 Discontinued Comment on above: Take 2 Tablespoonsfu l by mouth every other day. raNITIdine 150 mg oral tablet (20 sources) Histamine-2 Receptor Antagonist Start: 08-19-19 End: 10-23-19 take 2 tablets by mouth twice daily Ranitidine (Zantac) 150 MG tablet Discontinued 300 mg PO TWICE A DAY August 18, 2018 12:00am October 22, 2022 1:09pm take 1 capsule by mouth twice da marlen raNITIdine (Zantac) 300 MG capsule Take 300 mg by mouth 2 times daily. Protect from light 0 Active 125 ml sodium chloride 9 mg/ ml prefilled syringe (20 sources) Start: 07-22-2022 End: 10-21-2023 sodium chloride 0.9 % (flush ) 10 mL (BD POSIFLUSH) Start: 12-26-2006 Sodium Chlorid e (OCEAN NASAL) 0.65 % NASAL [place]ullen Use 1 [place] in the nose as needed. 0 12/26/2006 Active Start: 12-26-2006 Sodium Chlorid e (OCEAN NASAL) 0.65 % NASAL [place] ticagrelor 90 mg oral tablet (20 sources) Start: 10-05-2022 take 1 tablet by mouth every twelve hours BRILINTA 90 mg tablet Take 1 tablet by mouth every 12 hours. 0 10/05/2022 Active Start: 09-13-2022 End: 02-09-2023 take 1 tablet by mouth twice daily Ticagrelor 90 mg tablet Discontinued 90 mg PO TWICE A DAY 60 September 13, 2022 12:00am February 09, 2023 10:48am Comment on above: Take 1 tablet by [facility] every 12 hours. zoledronic acid 3.3 mg in NaCl 0.9% 100 mL (ZOMETA) (3 sources) Start: 05-10-2024 End: 05-10-2024 3.3 mg, INTRAVENOUS, Administer over 15 Minutes, ONCE, 1 dose, On [place] 05/10/24 at 1000, Hazardous Potential Reproductive Risk Drug: Use appropriate PPE. Refrigerate. Exp: (24 HR) Start: 02-16-2024 End: 02-16-2024 3.3 mg, INTRAVENOUS, Adminis ter over 15 Minutes, ONCE, 1 dose, On [place] 02/16/24 at 1200, Approx Total Volume - IMMEDIATE USE at room temp Hazardous Potential Reproductive Risk Drug: Use appropriate PPE. Refrigerate. Start: 11-24-2023 End: 11-24-2023 3.3 mg, INTRAVENOUS, Adminis ter over 15 Minutes, ONCE, 1 dose, On [place] 11/24/23 at 1100, Approx Total Volume - IMMEDIATE USE at room temp Hazardous Potential Reproductive Risk Drug: Use appropriate PPE. Refrigerate. Problems Active Problems Problem Classification Problem Date Documented Date Episodic/Chronic Acute cerebrovascular disease (5 sources) Hematoma of subdural space of neuraxis; Translations: [Subdural hematoma (HCC)] Onset: 07-23-2024 07-23-2024 Chronic Blindness and vision defects (2 sources) Visual disturbance; Translations: [Unspecified visual disturbance] 12-22-2022 Episodic Cancer of prostate (20 sources) Malignant tumor of prostate; Translations: [Malignant neoplasm of prostate] Onset: 07-29-2023 07-29-2023 Chronic Coronary atherosclerosis and other heart disease (20 sources) Coronary arteriosclerosis; Translations: [Atherosclerotic heart disease of [place] coronary artery without angina pectoris] Onset: 09-14-2022 09-13-2022 Chronic Coronary atherosclerosis and other heart disease (13 sources) Stented coronary artery; Translations: [Presence of coronary angioplasty implant and graft] Onset: 09-20-2022 09-21-2022 Episodic Deficiency and other anemia (2 sources) Anemia; Translations: [Anemia, unspecified] 07-25-2023 Episodic Diseases of white blood cells (2 sources) Leukocytosis; Translations: [Elevated white blood cell count, unspecified] 07-25-2023 Chronic Disorders of lipid metabolism (20 sources) Hyperlipidemia; Translations: [Hyperlipidemia, unspecified] Onset: 01-07-2014 Chronic Esophageal disorders (20 sources) Gastroesophageal reflux disease; Translations: [Gastro-esophageal reflux disease without esophagitis] Onset: 07-09-2014 07-09-2014 Chronic Essential hypertension (20 sources) Essential hypertension; Translations: [Essential (primary) hypertension] Onset: 10-08-2019 Chronic Fluid and electrolyte disorders (3 sources) Hypokalemia; Translations: [Hypokalemia] Onset: 08-07-2024 08-07-2024 Episodic Gout and other crystal arthropathies (20 sources) Gout; Translations: [Gout, unspecified] Onset: 09-03-2008 01-05-2013 Chronic Headache; including migraine (2 sources) Paroxysmal hemicrania; Translations: [Episodic paroxysmal hemicrania, not intractable] 12-22-2022 Chronic Headache; including migraine (1 source) Cough headache syndrome; Translations: [Primary cough headache] Episodic Heart valve disorders (20 sources) Aortic stenosis, non-rheumatic ; Translations: [Nonrheumatic aortic (valve) stenosis] Onset: 08-13-2022 08-13-2022 Chronic Heart valve disorders (1 source) Heart murmur; Translations: [Cardiac murmur, unspecified] Episodic Hyperplasia of prostate (20 sources) Benign prostatic hypertrophy with outflow obstruction; Translations: [Benign prostatic hyperplasia with lower urinary tract symptoms] Onset: 10-19-2007 11-25-2015 Chronic Immunizations and screening for infectious disease (5 sources) Needs influenza immunization; Translations: [Encounter for immunization] 01-25-2023 Episodic Inflammatory conditions of male genital organs (20 sources) Chronic prostatitis; Translations: [Chronic prostatitis] Onset: 01-02-2013 Resolved: 12-29-2017 12-29-2017 Chronic Malaise and fatigue (2 sources) Fatigue; Translations: [Other fatigue] 08-10-2024 Episodic Nonspecific chest pain (14 sources) Chest pain; Translations: [Chest pain, unspecified] 12-06-2022 Episodic Other aftercare (2 sources) Long-term current use of diuretic; Translations: [Encounter for therapeutic drug level monitoring] 07-17-2024 Episodic Other and unspecified benign neoplasm (1 source) Benign neoplasm of other specified sites; Translations: [Benign neoplasm of skin of upper limb, including shoulder] Episodic Other bone disease and musculoskeletal deformities (4 sources) Lytic lesion of bone on X-ray; Translations: [Disorder of bone, unspecified] 07-22-2023 Episodic Other bone disease and musculoskeletal deformities (2 sources) Disorder of bone, unspecified; Translations: [Lytic bone lesions on xray] Onset: 08-15-2023 Episodic Other bone disease and musculoskeletal deformities (2 sources) Other specified disorders of bone, unspecified site; Translations: [Lytic lesion of bone on x-ray] 07-30-2023 Episodic Other circulatory disease (20 sources) Carotid bruit; Translations: [Other specified symptoms and signs involving the circulatory and respiratory systems] Onset: 09-16-2022 08-31-2022 Episodic Other circulatory disease (11 sources) Abnormal foot pulse; Translations: [Other specified symptoms and signs involving the circulatory and respiratory systems] 10-22-2022 Episodic Other circulatory disease (6 sources) Other specified symptoms and signs involving the circulatory and respiratory systems; Translations: [Other symptoms involving cardiovascular system] 10-22-2022 Episodic Other circulatory disease (1 source) Ecchymosis; Translations: [Hemorrhage, not elsewhere classified] 06-05-2024 Episodic Other connective tissue disease (1 source) Cramp in foot; Translations: [Cramp and spasm] Episodic Other connective tissue disease (3 sources) Myofascial pain; Translations: [Myalgia, other site] 07-22-2023 Episodic Other connective tissue disease (2 sources) Muscle pain; Translations: [Myalgia, unspecified site] 07-25-2023 Episodic Other ear and sense organ disorders (20 sources) Bilateral hearing loss; Translations: [Unspecified hearing loss, bilateral] Onset: 01-07-2014 01-07-2014 Chronic Other injuries and conditions due to external causes (1 source) Hematoma; Translations: [Other injury of unspecified body region, initial encounter] 06-06-2024 Episodic Other liver diseases (1 source) Alkaline phosphatase raised; Translations: [Abnormal levels of other serum enzymes] 01-25-2023 Episodic Other liver diseases (1 source) Liver enzymes abnormal; Translations: [Abnormal levels of other serum enzymes] 05-19-2023 Episodic Other lower respiratory disease (15 sources) Dyspnea on exertion; Translations: [Other forms of dyspnea] 08-31-2022 Episodic Other lower respiratory disease (10 sources) Other forms of dyspnea; Translations: [Other respiratory abnormalities] Onset: 08-07-2024 09-08-2022 Episodic Other lower respiratory disease (2 sources) Pneumonitis; Translations: [Other disorders of lung] 07-25-2023 Episodic Other nervous system disorders (20 sources) Insomnia co-occurrent and due to medical condition; Translations: [Other chronic pain] Onset: 01-07-2014 Resolved: 01-08-2015 01-08-2015 Chronic Other nervous system disorders (14 sources) Abnormal gait; Translations: [Unspecified abnormalities of gait and mobility] Onset: 06-06-2024 06-06-2024 Episodic Other nervous system disorders (1 source) Unspecified abnormalities of gait and mobility; Translations: [Abnormal gait] Onset: 06-06-2024 Episodic Other non-traumatic joint disorders (2 sources) Pain of right shoulder joint; Translations: [Pain in right shoulder] 02-16-2024 Episodic Other nutritional; endocrine; and metabolic disorders (1 source) Hypoalbuminemia; Translations: [Other disorders of plasma-protein metabolism, not elsewhere classified] 01-25-2023 Chronic Other nutritional; endocrine; and metabolic disorders (1 source) Weight loss; Translations: [Abnormal weight loss] 05-19-2023 Episodic Other upper respiratory disease (20 sources) Allergic rhinitis; Translations: [Allergic rhinitis, unspecified] Onset: 09-18-2009 09-18-2009 Chronic Other upper respiratory disease (6 sources) Bleeding from nose; Translations: [Epistaxis] 01-11-2023 Episodic Other upper respiratory disease (1 source) Bronchospasm; Translations: [Acute bronchospasm] 08-20-2023 Episodic Other upper respiratory infections (1 source) Chronic sinusitis; Translations: [Chronic sinusitis, unspecified] 05-02-2023 Chronic Peripheral and visceral atherosclerosis (1 source) Intermittent claudication; Translations: [Peripheral vascular disease, unspecified] 01-25-2023 Chronic Residual codes; unclassified (20 sources) Obstructive sleep apnea syndrome; Translations: [Obstructive sleep apnea (adult) (pediatric)] Onset: 07-19-2007 Resolved: 12-29-2017 02-27-2018 Chronic Residual codes; unclassified (2 sources) [...] of the circulatory system] Onset: 09-16-2022 Episodic Residual codes; unclassified (2 sources) Edema of right lower limb; Translations: [Localized edema] 06-06-2024 Episodic Residual codes; unclassified (1 source) Localized edema; Translations: [Leg edema, right] Onset: 07-18-2024 Episodic Screening and history of mental health and substance abuse codes (2 sources) Patient encounter status; Translations: [Encounter for screening for depression] 06-05-2024 Episodic Secondary malignancies (1 source) Secondary malignant neoplasm of bone; 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)] Onset: 02-14-2024 Chronic Spondylosis; intervertebral disc disorders; other back problems (20 sources) Degeneration of lumbar intervertebral disc; Translations: [Other intervertebral disc degeneration, lumbar region] Onset: 04-01-2014 Resolved: 01-08-2015 04-01-2014 Chronic Superficial injury; contusion (3 sources) Contusion of right forearm; Translations: [Contusion of right forearm, initial encounter] Onset: 07-18-2024 01-25-2023 Episodic Systemic lupus erythematosus and connective tissue disorders (10 sources) Temporal arteritis; Translations: [Other giant cell arteritis] 12-22-2022 Chronic Unclassified (1 source) Established Patient Onset: 08-02-2024 Past or Other Problems Problem Classification Problem Date Documented Da te Episodic/Chronic Allergic reactions (20 sources) Solar degeneration; Translations: [Other skin changes due to chronic exposure to nonionizing radiation] Onset: 09-11-2009 Resolved: 01-14-2012 01-14-2012 Episodic Biliary tract disease (20 sources) Cholelithiasis without obstruction; Translations: [Calculus of gallbladder without cholecystitis without obstruction] Onset: 01-31-2023 Resolved: 06-06-2024 01-31-2023 Episodic Cardiac dysrhythmias (3 sources) Bradycardia; Translations: [Bradycardia, unspecified] Onset: 03-22-2024 01-31-2024 Episodic Conditions associated with dizziness or vertigo (3 sources) Dizziness and giddiness; Translations: [Dizziness] Onset: 01-31-2024 08-10-2024 Episodic Diabetes mellitus without complication (20 sources) Impaired fasting glycemia; Translations: [Impaired fasting glucose] Onset: 01-19-2021 Episodic Genitourinary symptoms and ill-defined conditions (20 sources) Dribbling of urine; Translations: [Post-void dribbling] Onset: 02-02-2012 Resolved: 03-02-2017 03-02-2017 Chronic Genitourinary symptoms and ill-defined conditions (20 sources) Increased frequency of urination; Translations: [Frequency of micturition] Onset: 02-02-2012 Resolved: 12-29-2017 12-27-2022 Episodic Nutritional deficiencies (20 sources) Vitamin D deficiency; Translations: [Vitamin D deficiency, unspecified] Onset: 01-15-2014 Resolved: 01-08-2015 01-08-2015 Chronic Osteoarthritis (20 sources) Degenerative joint disease involving multiple joints; Translations: [Polyosteoarthritis, unspecified] Onset: 11-29-2005 Resolved: 01-05-2013 01-05-2013 Chronic Other bone disease and musculoskeletal deformities (20 sources) Finding of scapular structure; Translations: [Disorder of bone, unspecified] Onset: 08-03-2017 Resolved: 12-29-2017 12-29-2017 Episodic Other circulatory disease (20 sources) Abnormal chest sounds; Translations: [Other specified symptoms and signs involving the circulatory and respiratory systems] Onset: 12-14-2018 12-14-2018 Episodic Other gastrointestinal disorders (20 sources) Occult blood in stools; Translations: [Other fecal abnormalities] Onset: 09-11-2015 Resolved: 03-02-2017 03-02-2017 Episodic Other lower respiratory disease (20 sources) Nodule of lung; Translations: [Solitary pulmonary nodule] Onset: 12-09-2022 12-06-2022 Episodic Other lower respiratory disease (20 sources) Multiple nodules of lung; Translations: [Other nonspecific abnormal finding of lung field] Onset: 02-08-2012 Resolved: 01-05-2013 03-09-2021 Episodic Other male genital disorders (20 sources) Prostatic intraepithelial neoplasia; 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] Onset: 01-02-2013 Resolved: 12-29-2017 12-29-2017 Episodic Other non-epithelial cancer of skin (20 sources) History of malignant neoplasm of skin; Translations: [Personal history of other malignant neoplasm of skin] Onset: 09-11-2009 Resolved: 01-14-2012 01-14-2012 Episodic Other non-traumatic joint disorders (20 sources) Pain in right shoulder; Translations: [Right shoulder pain] Onset: 08-03-2017 Resolved: 12-29-2017 12-17-2022 Episodic Other screening for suspected conditions (not mental disorders or infectious disease) (20 sources) Raised prostate specific antigen; Translations: [Elevated prostate specific antigen [PSA]] Onset: 10-19-2007 Resolved: 01-09-2014 01-09-2014 Episodic Other skin disorders (20 sources) Actinic keratosis; Translations: [Actinic keratosis] Onset: 09-11-2009 03-01-2017 Episodic Other skin disorders (20 sources) Scar conditions and fibrosis of skin; Translations: [Scar conditions and fibrosis of skin] Onset: 09-11-2009 Resolved: 01-14-2012 01-14-2012 Episodic Other skin disorders (20 sources) Solar lentigo; Translations: [Other melanin hyperpigmentation] Onset: 09-11-2009 Resolved: 01-16-2012 01-16-2012 Episodic Residual codes; unclassified (20 sources) Periodic limb movement disorder; Translations: [Periodic limb movement disorder] Onset: 07-19-2007 Resolved: 12-29-2017 12-29-2017 Chronic Residual codes; unclassified (9 sources) Periodic leg movements of sleep ; Translations: [Periodic limb movement disorder] Onset: 07-19-2007 Resolved: 12-29-2017 12-29-2017 Chronic Residual codes; unclassified (20 sources) Intolerance to drug; Translations: [Other specified health status] Onset: 09-11-2013 Resolved: 01-17-2020 01-17-2020 Episodic Spondylosis; intervertebral disc disorders; other back problems (20 sources) Backache; Translations: [Dorsalgia, unspecified] Onset: 09-03-2008 Resolved: 12-29-2017 12-06-2022 Episodic Results Test Name Value Interpretation Reference Range Facility PSA [facility] 08-30-2024 Prostate specific Ag [Mass/Vol] 7.03 ng/mL High <2.60 [facility] Comment on above: Order Comment: Speci men Type: BLOOD SPECIMENOrdering Facility: [facility] Address: [address] [place] [address] Result Comment: Rivera mera PSA test methodology used is the Electrochemiluminescence Immunoassay by [employer]. Total PSA values by differing methodologies cannot be interchanged. For an individual patient, the significance of a PSA level should be interpreted in a broad clinical context, including age, race, family history, digital rectal exam, prostate size, results of prior testing (prostate biopsy, free PSA, PCA3), and use of 5-alpha reductase inhibitors. Considering the high incidence of asymptomatic cancer in the general population that may not pose an ultimate risk to a patient, the decision to recommend urological evaluation or prostate biopsy should be individualized after consideration of all these factors. REFERENCE: Joni Hamilton M.D., M.P.H., Hieu Pantoja M.D., Ph.D., Ish Singh M.D., Jeannette Parmar, M.P.H., Gema Cordero Sc.D. Effect of Verification Bias on Screening for Prostate Cancer by Measurement of Prostatic Specific Antigen. N Engl J Med 2003,349:335-42. Performed By: #### 2 857-1 ####[facility] LABCLIA [id number] [place] [address] [place] Anion gap in Serum or Plasma Ordered By: Rufus Quintana on 08-09-2024 Anion gap [Moles/Vol] 12 mmol/L - [facility] BUN/creatinine ratioOrdered By: Rufus Quintana on 08-09-2024 Urea nitrogen/Creatinine [Mass ratio] 21.7 mg/mg High - [facility] Basic Metabolic Profile (BMP )on 08-09-2024 BUN/CRE 21.7 RATIO High 12-31 [facility] Comment on above: Performed By: #### L 500.4100, L500.2500 #### [facility] [address] [place], [address] Calcium [Mass/Vol] 9.5 mg/dL Normal 7.6-11.0 [facility] Comment on above: Performed By: #### L 500.4100, L500.2500 #### [facility] [address] [place], [address] Chloride [Moles/Vol] 104 mmol/L Normal 98-108 [facility] Comment on above: Performed By: #### L 500.4100, L500.2500 #### [facility] [address] [place], [address] CO2 [Moles/Vol] 25.8 mmol/L Normal 21.0-32.0 [facility] Comment on above: Performed By: #### L 500.4100, L500.2500 #### [facility] [address] [place], [address] Creatinine [Mass/Vol] 1.09 mg/dL Normal 0.70-1.20 [facility] Comment on above: Performed By: #### L 500.4100, L500.2500 #### [facility] [address] [place], [address] GAP 12 Normal 5-15 [facility] Comment on above: Performed By: #### L 500.4100, L500.2500 #### [facility] [address] [place], [address] GFR/1.73 sq M.predicted among non-blacks MDRD (S/P/Bld) [Vol rate/Area] 66 mL/min/{1.73_m2} Normal >60 [facility] Comment on above: Result Comment: mL/m in/1.73m2 CKD-EPI Creatinine Equation (2020) Performed By: #### L 500.4100, L500.2500 #### [facility] [address] [place], [address] Glucose [Mass/Vol] 104 mg/dL High 70-99 [facility] Comment on above: Performed By: #### L 500.4100, L500.2500 #### [facility] [address] [place], [address] Potassium [Moles/Vol] 4.3 mmol/L Normal 3.3-5.1 [facility] Comment on above: Performed By: #### L 500.4100, L500.2500 #### [facility] [address] [place], [address] Sodium [Moles/Vol] 142 mmol/L Normal 133-145 [facility] Comment on above: Performed By: #### L 500.4100, L500.2500 #### [facility] [address] [place], [address] Urea nitrogen [Mass/Vol] 24 mg/dL High 4-19 [facility] Comment on above: Performed By: #### L 500.4100, L500.2500 #### [facility] [address] [place], [address] BUN Normal 4-19 [facility] Comment on above: Result Comment: ON O THER REQ Performed By: #### L 500.2500 #### [facility] [address] [place], [address] BUN/CRE Normal 10-20 [facility] Comment on above: Result Comment: ON O THER REQ Performed By: #### L 500.2500 #### [facility] [address] [place], [address] Calcium Normal 7.6-11.0 [facility] Comment on above: Result Comment: ON O THER REQ Performed By: #### L 500.2500 #### [facility] [address] [place], [address] CL Normal 98-108 [facility] Comment on above: Result Comment: ON O THER REQ Performed By: #### L 500.2500 #### [facility] [address] [place], [address] CO2 Normal 21.0-32.0 [facility] Comment on above: Result Comment: ON O THER REQ Performed By: #### L 500.2500 #### [facility] [address] [place], [address] CREAT,SERUM Normal 0.70-1.20 [facility] Comment on above: Result Comment: ON O THER REQ Performed By: #### L 500.2500 #### [facility] [address] [place], [address] eGFR Normal >60 [facility] Comment on above: Result Comment: ON O THER REQ Performed By: #### L 500.2500 #### [facility] [address] [place], [address] GAP Normal 5-15 [facility] Comment on above: Result Comment: ON O THER REQ Performed By: #### L 500.2500 #### [facility] [address] [place], [address] GLU Normal 70-99 [facility] Comment on above: Result Comment: ON O THER REQ Performed By: #### L 500.2500 #### [facility] [address] [place], [address] Potassium Normal 3.3-5.1 [facility] Comment on above: Result Comment: ON O THER REQ Performed By: #### L 500.2500 #### [facility] [address] [place], [address] Basic Metabolic Profile (BMP) Normal 133-145 [facility] Comment on above: Result Comment: ON O THER REQ Performed By: #### L 500.2500 #### [facility] [address] [place], [address] Calculated very low density lipoprotein (VLDL) cholesterol measurementOrdered By: Rufus Quintana on 08-09-2024 Calculated very low density lipoprotein (VLDL) cholesterol measurement 23 mg/dL 5-40 [facility] Carbon dioxide, total [Moles /volume] in Central venous bloodOrdered By: Rufus Quintana on 08-09-2024 CO2 [Moles/Vol] 25.8 mmol/L 21.0-32.0 [facility] Chloride assayOrdered By: Keiry Quintana on 08-09-2024 Chloride [Moles/Vol] 104 mmol/L 98-108 [facility] Glomerular filtration rate ( GFR) estimation/1.73 sq m using serum, plasma, or whole bOrdered By: Rufus Quintana on 08-09-2024 GFR/1.73 sq M.predicted among non-blacks MDRD (S/P/Bld) [Vol rate/Area] 66 mL/min/{1.73_m2} >60 [facility] Comment on above: mL/min/1.73m2 CKD-EP I Creatinine Equation (2020) LDL calc ser/plasOrdered By: Rufus Quintana on 08-09-2024 Cholesterol in LDL [Mass/Vol] 51 mg/dL [facility] Comment on above: Imqccttzkw=915-187 m g/dL & Higher Wqqm=921 mg/dL or greater Lipid Profileon 08-09-2024 CHOL:HDL 3.27 Normal [facility] Comment on above: Performed By: #### L 500.4100, L500.2500 #### [facility] [address] [place], [address] Cholesterol [Mass/Vol] 107 mg/dL Normal <=200 [facility] Comment on above: Result Comment: Chol esterol level, Desirable <200 mg/dL Borderline high cholesterol 200-239 mg/dL High cholesterol >=240 mg/dL Recommendations of the NCEP Adult Treatment Panel for the following risk-cutoff thresholds for the [place] population. Performed By: #### L 500.4100, L500.2500 #### [facility] [address] [place], [address] Cholesterol in HDL [Mass/Vol] 33 mg/dL Low [facility] Comment on above: Result Comment: Candi onal Cholesterol Education Program (NCEP) guidelines: <40 mg/dL: Low HDL-cholesterol (major risk factor for CHD) >= 60 mg/dL: High HDL-cholesterol (negative risk factor for CHD) HDL-cholesterol is affected by a number of factors, e.g. smoking, exercise, hormones, sex and age. Performed By: #### L 500.4100, L500.2500 #### [facility] [address] [place], [address] Cholesterol in LDL [Mass/Vol] 51 mg/dL Normal [facility] Comment on above: Result Comment: Bord dikkmn=988-849 mg/dL Higher Upjc=975 mg/dL or greater Performed By: #### L 500.4100, L500.2500 #### [facility] [address] [place], [address] Cholesterol in VLDL [Mass/Vol] 23 mg/dL Normal 5-40 [facility] Comment on above: Performed By: #### L 500.4100, L500.2500 #### [facility] [address] [place], [place], [address] Triglyceride [Mass/Vol] 116 mg/dL Normal [facility] Comment on above: Result Comment: The drugs N-Acetylcysteine and Metamizole may falsely depress this assay. Normal range: <150 mg/dL Borderline High: 150-199 mg/dL High: 200-499 mg/dL Very High: >500 mg/dL Performed By: #### L 500.4100, L500.2500 #### [facility] [address] [place], [place], [address] Potassium measurement (mass/ volume)Ordered By: Rufus Quintana on 08-09-2024 Potassium (Unsp spec) [Mass/Vol] 4.3 mmol/L 3.3-5.1 [facility] Screening total cholesterol/ high density lipoprotein (HDL) cholesterol ratioOrdered By: Rufus Quintana on 08-09-2024 Cholesterol.total/Mell sterol in HDL [Mass ratio] 3.27 {ratio} [facility] Serum creatinine measurement (mass/volume)Ordered By: Rufus Quintana on 08-09-2024 Creatinine [Mass/Vol] 1.09 mg/dL 0.70-1.20 [facility] Serum glucose measurement (m ass/volume)Ordered By: Rufus Quintana on 08-09-2024 Glucose [Mass/Vol] 104 mg/dL High 70-99 [facility] Serum or plasma calcium good urement (mass/volume)Ordered By: Rufus Quintana on 08-09-2024 Calcium [Mass/Vol] 9.5 mg/dL 7.6-11.0 [facility] Serum or plasma cholesterol in HDL measurement (mass/volume)Ordered By: Rufus Quintana on 08-09-2024 Cholesterol in HDL [Mass/Vol] 33 mg/dL Low >40 [facility] Comment on above: National Cholesterol Education Program (NCEP) guidelines:<40 mg/dL: Low HDL-cholesterol (major risk factor for CHD)>= 60 mg/dL: High HDL-cholesterol (negative risk factor for CHD)HDL-cholesterol is affected by a number of factors, e.g. smoking, exercise, hormones, sex and age. Serum or plasma cholesterol measurement (mass/volume)Ordered By: Rufus Quintana on 08-09-2024 Cholesterol [Mass/Vol] 107 mg/dL <201 [facility] Comment on above: Cholesterol level, D esirable <200 mg/dLBorderline high cholesterol 200-239 mg/dLHigh cholesterol >=240 mg/dLRecommendations of the NCEP Adult Treatment Panel for the following risk-cutoff thresholds for the [place] population. Serum or plasma urea nitroge n measurement (mass/volume)Ordered By: Rufus Quintana on 08-09-2024 Urea nitrogen [Mass/Vol] 24 mg/dL High 4-19 [facility] Sodium levelOrdered By: Dyllan Quintana on 08-09-2024 Sodium [Moles/Vol] 142 mmol/L 133-145 [facility] Triglycerides measurementOrd ered By: Rufus Quintana on 08-09-2024 Triglyceride [Mass/Vol] 116 mg/dL <[address] [facility] Comment on above: The drugs N-Acetylcy steine and Metamizole may falsely depress this assay. Normal range: <150 mg/dLBorderline High: 150-199 mg/dLHigh: 200-499 mg/dLVery High: >500 mg/dL Cardiology Visit Reporton Cardiology Visit Report [facility] [place] [address] OFFICE VISIT Date of Service: 08/07/24 MR#: [id number] Acct: [id number] Name: EVERTON PARDO Rep #: [id number] : 1935 Provider: SANDY Alston Age/Sex: 88/M Location: [facility] Status: Signed HPI HPI History of Present Illness Details: Everton Pardo is an 88-year-old male who presents to office today for follow-up for monitoring his cardiovascular health. Patient has a history of hypertension and aortic stenosis. Patient established with our office in August 2022 following experiencing chest discomfort worse with activity and radiating to left arm. Patient underwent diagnostic heart catheterization which demonstrated triple-vessel disease with calcified LAD lesion, circumflex lesion and distal RCA lesion with a preserved ejection fraction. Patient was referred to [email or web address] for evaluation of high risk PCI versus CABG. Patient underwent heart catheterization 09/13/2022 at [facility] which demonstrated a proximal 95% stenosis of his LAD, proximal 90% stenosis of the small caliber D1, proximal 90% stenosis of the OM1, 90% stenosis of the right posterior lateral. Patient underwent IVUS guided PCI to the proximal LAD and drug-eluting stent that was overlapped, PCI to the OM1 with IVUS guidance, PCI of the posterior lateral branch and balloon angioplasty to the diagonal. Patient was diagnosed with prostate cancer and follows with [facility] for this. Of note, earlier this month, called in with concerns of patient's elevated BP in which she was initiated on hydrochlorothiazide 25 mg daily. Patient did have his lab work drawn and brought in copy which demonstrated normal kidney function and potassium of 3.6 dated 05/26/2024. Upon presentation today, patient reports fatigue described as decreased energy that he feels has worsened over the last 3-4 months. He reports weakness in which he finds himself unable to do much physical activity but feels this is also related to shortness of breath with activity. He is only able to tolerate walking about 10 minutes at a time. This was also noticed to worsen over the last 3-4 months. Of note, patient does recognize that he was initiated on a different chemotherapy medication around the time of noticing worsening in some of his symptoms. Him and his report noticing dizziness that is directly associated when he is walking and turns, he loses his balance. Patient reports his bilateral lower extremity edema has improved over the last couple months. He presented with BP readings over the last few days that averaged in the 120s???130s/70s but did obtain a reading of 150 systolic on 1 occasion. Further ROS below. Intake Vital Signs 01/31/24 10:02 08/07/24 06:43 Height 5 ft 7 in 5 ft 7 in Weight: 6 lb 160 lb BMI 0.9 25.0 BP 103/63 122/80 H Blood Pressure Location Lt brachial Lt brachial Position Sitting Sitting Respiration 18 18 Pulse 51 L 74 Pulse Source Monitor Monitor Pulse Oximetry (%) 99 100 Intake Visit Reasons: 6 M FU Ict Trainer Required: No Is patient in pain?: No Allergies meloxicam (From Mobic) Allergy (Verified 08/07/24 09:04) Unknown Sulfa (Sulfonamide Antibiotics) Allergy (Verified 08/07/24 09:04) Unknown ezetimibe (From Zetia) Adverse Reaction (Intermediate, Verified 08/07/24 09:04) Joint pain and myalgias, muscle weakness gabapentin Adverse Reaction (Unknown, Verified 08/07/24 09:04) Shortness of breath Medications ???Medication ???Instructions ???Recorded ???Confirmed ???Type acetaminophen 500 mg tablet 500 - 1,000 mg PO Q6H PRN PRN Pain 08/18/18 08/07/24 History finasteride 5 mg tablet 5 mg PO DAILY 08/18/18 08/07/24 Hi story fluticasone propionate 50 1 spray BID PRN ALLERGY SX 9 01/31/24 History mcg/actuation nasal spray,suspension vit C 250 mg-vit E 90 mg-zinc 40 1 ea PO BID 08/18/18 08/07/24 Hist ory mg-copper 1 [id number] capsule (PreserVision AREDS-2) aspirin 81 mg tablet,delayed 81 mg PO DAILY 10/22/22 08/07/24 H istory release (Adult Low Dose Aspirin) oxycodone-acetaminophen 5 mg-325 1 tab PO Q6H PRN pain 5 days #20 0 07/22/23 08/07/24 Rx mg tablet (Percocet) tabs atorvastatin 40 mg tablet 40 mg PO QHS #90 tabs 11/07/23 Rx tamsulosin 0.4 mg capsule 0.4 mg PO QDAY 01/31/24 08/07/24 H istory amlodipine 5 mg tablet 5 mg PO QDAY #90 tabs 02/06/24 Rx famotidine 20 mg tablet (Pepcid) 20 mg PO DAILY #90 tabs 03/05/24 0 08/07/24 Rx clopidogrel 75 mg tablet (Plavix) 75 mg PO .COMPLEX #90 tabs 08/07/24 Rx enzalutamide 40 mg capsule (Xtandi) 160 mg PO QDAY 07/17/24 5 History hydrochlorothiazide 25 mg tablet 25 mg PO QAM #30 tabs 07/17/24 Rx Ejection fraction %: 65 Have you fallen in t (more content not included)... Normal [facility] CNOVSPon 08-02-2024 CNOVSP Visit (SP) Office (H EMAWS) EVERTON PARDO ([id number]) 1935 M Date Time Provider Department 08/02/24 10:00 AM JAZMYN ELLISON During your visit today, we recorded the following information about you: Temperature Pulse Blood pressure Weight 97.2 degrees 72/minute 125/73 73.5 kg Juliet Torres LPN 08/02/2024 3:34 PM Signed Est. Pt, discuss recent lab results, poss tx today RIC Kelly Brianna 08/02/2024 3:34 PM Signed Everton Pardo 1935 08/02/2024 HISTORY OF PRESENT ILLNESS: Everton Pardo is a 87 year old male referred by Dr Ocampo re PSA 5000, bone lesions. Saw Maksim Whitaker written he took last dose of Rx 2 days ago. Had a bone biopsy 08-30-23. Showed metastatic prostate cancer. Here for follow up and first lupron injection. Feels ok, no pain, just tired. Discussed SE lupron, general treatment approach to prostate cancer, treatment goals. Here for follow up, doing well. PSA down, rate of decline is much lower now We have clearance for zometa Discussed adding enzalutamide Shoulder MRI reviewed Interval Hx: Pt presents with spouse prior to injection and zometa. Reports more fatigue since beginning treatments. No longer able to do a lot of the yard work that he was doing prior to diagnosis. Reviewed recent labs and imaging with patient. Significant improvement in PSA from diagnosis. He is tolerating treatment generally well aside from fatigue. Denies HF. Occasional NS. Denies new aches or pains. No SOB, CP, or palpitations. No changes in bowel or bladder habits. No rash or skin changes. Denies bleeding or bruising. 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 PSA down significantly, started on enzalutamide, tolerating well Reviewed general diagnosis and course of treatment with patient in detail today. RECOMMENDATION/PLAN: 1. Lupron and zometa q 3 months 2. started enzalutamide 3. Back q 3 months with PSA. Written and verbal health teaching given to patient, patient verbalizes understanding and agrees with treatment plan. 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 Mccormack, immunotherapy. 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 Diverticulosis of colon 06/28/2001 Tortuous colon ELEVATED PROSTATE SPECIFIC ANTIGEN 10/19/2007 PSA 3.8 in -, 4.7 in -, 4.3 in -: Malgieri rec routine follow up Environmental allergies Essential hypertension 10/08/2019 Gastritis 08/13/1999 GENERAL OSTEOARTHROSIS 11/29/2005 GOUT NOS 09/03/2008 Uric acid 5.8 in 6-, 7.9 in 8-09 (during acute attack) Hearing loss of both ears 01/07/2014 Hypertrophy of prostate with urinary obstruction and other lower urinary tract symptoms (LUTS) 10/19/2007 Lumbago 09/03/2008 MRI 10-: small central herniation at L4-5, mild DDD L4-5 and L5-S1 Rec Tylenol and PT in 08-20: need to review old MRI and consider spinal stenosis Reviewed the importance of weight loss as of 08-20 Nonrheumatic aortic valve stenosis 08/13/2022 Periodic limb movement disorder (PLMD) 07/19/2007 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 I'm not using it anymore. Snoring PAST SURGICAL HISTORY Procedure Laterality Date APPENDECTOMY 1945 CC CORONARY STENT 09/20/2022 PCI diagonal; RUPESH proximal pLAD x 2, OM1 x 1, and RCA x 1. COLONOSCOPY 08/21/2018 COLONOSCOPY FLX DX W/COLLJ SPEC WHEN PFRMD 06/28/2001 Colonoscopy ESOPHAGOGASTRODUODENOSCOPY TRANSORAL DIAGNOSTIC 08/02/2001 EGD ESOPHAGOGASTRODUODENOSCOPY TRANSORAL DIAGNOSTIC 12/15/2015 EGD LEFT HEART CATH,PERCUTANEOUS 09/13/2022 PAST SURGICAL HISTORY OF 2010 cysts, skin lesions, basal cell cancer PROSTATE BIOPSY 08/2012 FAMILY HISTORY Problem Relation Age of Onset Cancer Mother Pt states does not remember type Heart Father [place] age 60s GI Sister gastrectomy Cancer Sister stomach cancer other (fibromyalgia) Sister Prostate Cancer Brother Heart disease Brother pacemaker No Known Problems Other Lung disease Social History Tobacco Use Smoking status: Never Smokeless tobacco: Never Tobacco comments: No smoking in childhood home. Vaping Use Vaping status: Never Used Substance Use Topics Alcohol use: No Drug use: No ALLERGIES: ALLERGIES Allergen Reactions Zetia [Ezetimibe] Other: See Comments Joint pain Ga (more content not included)... Normal [facility] CBC W Auto Differential pane l (Bld)on 07-26-2024 Basophils (Bld) [#/Vol] 0.08 10*3/uL Normal <0.11 [facility] Comment on above: Order Comment: Speci men Type: BLOOD SPECIMENOrdering Facility: [facility] Address: [address] [place] [address] Performed By: #### 5 7021-8 ####[facility] [id number] [place] [address] [place] Basophils/100 WBC (Bld) 1.1 % Normal C [facility] Comment on above: Order Comment: Speci men Type: BLOOD SPECIMENOrdering Facility: [facility] Address: [address] [place] [address] Performed By: #### 5 7021-8 ####[facility] [id number] [place] [address] [place] Differential cell count method Nom (Bld) Auto Normal [facility] Comment on above: Order Comment: Speci men Type: BLOOD SPECIMENOrdering Facility: [facility] Address: [address] [place] [address] Performed By: #### 5 7021-8 ####[facility] [id number] [place] [address] [place] Eosinophils (Bld) [#/Vol] 0.19 10*3/uL Normal <0.46 [facility] Comment on above: Order Comment: Speci men Type: BLOOD SPECIMENOrdering Facility: [facility] Address: [address] [place] [address] Performed By: #### 5 7021-8 ####[facility]NCJ[facility] [id number] [place] [address] [place] Eosinophils/100 WBC (Bld) 2.6 % Normal [facility] Comment on above: Order Comment: Speci men Type: BLOOD SPECIMENOrdering Facility: [facility] Address: [address] [place] [address] Performed By: #### 5 7021-8 ####[facility] [id number] [place] [address] [place] Erythrocyte distribution width (RBC) [Ratio] 13.5 % Normal 11.5-15.0 [facility] Comment on above: Order Comment: Speci men Type: BLOOD SPECIMENOrdering Facility: [facility] Address: [address] [place] [address] Performed By: #### 5 7021-8 ####[facility] [id number] [place] [address] [place] Hematocrit (Bld) [Volume fraction] 39.2 % Normal 39.0-51.0 [facility] Comment on above: Order Comment: Speci men Type: BLOOD SPECIMENOrdering Facility: [facility] Address: [address] [place] [address] Performed By: #### 5 7021-8 ####[facility] EFRAINIBERIANCJESSYA [id number] [place] [address] [place] Hemoglobin (Bld) [Mass/Vol] 13.4 g/dL Normal 13.0-17.0 [facility] Comment on above: Order Comment: Speci men Type: BLOOD SPECIMENOrdering Facility: [facility] Address: [address] [place] [address] Performed By: #### 5 7021-8 ####[facility] HOSPITALNCA [id number] [place] [address] [place] Immature granulocytes (Bld) [#/Vol] 0.04 10*3/uL Normal <0.10 [facility] Comment on above: Order Comment: Speci men Type: BLOOD SPECIMENOrdering Facility: [facility] Address: [address] [place] [address] Performed By: #### 5 7021-8 ####[facility]ITALNCLIA [id number] [place] [address] [place] Immature granulocytes/100 WBC (Bld) 0.5 % Normal [facility] Comment on above: Order Comment: Speci men Type: BLOOD SPECIMENOrdering Facility: [facility] Address: [address] [place] [address] Performed By: #### 5 7021-8 ####[facility]ITALNCLIA [id number] [place] [address] [place] Lymphocytes (Bld) [#/Vol] 2.02 10*3/uL Normal 1.00-4.00 [facility] Comment on above: Order Comment: Speci men Type: BLOOD SPECIMENOrdering Facility: [facility] Address: [address] [place] [address] Performed By: #### 5 7021-8 ####[facility]ITALNCLIA [id number] [place] [address] [place] Lymphocytes/100 WBC (Bld) 27.4 % Normal [facility] Comment on above: Order Comment: Speci men Type: BLOOD SPECIMENOrdering Facility: [facility] Address: [address] [place] [address] Performed By: #### 5 7021-8 ####[facility]ITALL[facility] [id number] [place] [address] [place] MCH (RBC) [Entitic mass] 31.9 pg Normal 26.0-34.0 [facility] Comment on above: Order Comment: Speci men Type: BLOOD SPECIMENOrdering Facility: [facility] Address: [address] [place] [address] Performed By: #### 5 7021-8 ####[facility]ALL[facility] [id number] [place] [address] [place] MCHC (RBC) [Mass/Vol] 34.2 g/dL Normal 30.5-36.0 [facility] Comment on above: Order Comment: Speci men Type: BLOOD SPECIMENOrdering Facility: [facility] Address: [address] [place] [address] Performed By: #### 5 7021-8 ####[facility]ALL[facility] [id number] [place] [address] [place] MCV (RBC) [Entitic vol] 93.3 fL Normal 80.0-100.0 C [facility] Comment on above: Order Comment: Speci men Type: BLOOD SPECIMENOrdering Facility: [facility] Address: [address] [place] [address] Performed By: #### 5 7021-8 ####[facility] [id number] [place] [address] [place] Monocytes (Bld) [#/Vol] 0.93 10*3/uL High <0.87 [facility] Comment on above: Order Comment: Speci men Type: BLOOD SPECIMENOrdering Facility: [facility] Address: [address] [place] [address] Performed By: #### 5 7021-8 ####[facility] MILLWNCLIA [id number] [place] [address] [place] Monocytes/100 WBC (Bld) 12.6 % Normal [facility] Comment on above: Order Comment: Speci men Type: BLOOD SPECIMENOrdering Facility: [facility] Address: [address] [place] [address] Performed By: #### 5 7021-8 ####[facility]ALL[facility] [id number] [place] [address] [place] Neutrophils (Bld) [#/Vol] 4.12 10*3/uL Normal 1.45-7.50 [facility] Comment on above: Order Comment: Speci men Type: BLOOD SPECIMENOrdering Facility: [facility] Address: [address] [place] [address] Performed By: #### 5 7021-8 ####[facility]ITALNCLIA [id number] [place] [address] [place] Neutrophils/100 WBC (Bld) 55.8 % Normal [facility] Comment on above: Order Comment: Speci men Type: BLOOD SPECIMENOrdering Facility: [facility] Address: [address] [place] [address] Performed By: #### 5 7021-8 ####[facility]ITALNCLIA [id number] [place] [address] [place] Nucleated RBC (Bld) [#/Vol] 10*3/uL Normal <0.01 [facility] Comment on above: Order Comment: Speci men Type: BLOOD SPECIMENOrdering Facility: [facility] Address: [address] [place] [address] Performed By: #### 5 7021-8 ####[facility] OMANCKENNETH [id number] [place] [address] [place] Nucleated RBC/100 WBC (Bld) [Ratio] 0.0 /100 WBC Normal [facility] Comment on above: Order Comment: Speci men Type: BLOOD SPECIMENOrdering Facility: [facility] Address: [address] [place] [address] Performed By: #### 5 7021-8 ####[facility] EFRAINIBERIANCLIHeaven [id number] [place] [address] [place] Platelet mean volume (Bld) [Entitic vol] 9.9 fL Normal 9.0-12.7 [facility] Comment on above: Order Comment: Speci men Type: BLOOD SPECIMENOrdering Facility: [facility] Address: [address] [place] [address] Performed By: #### 5 7021-8 ####[facility]ITALNCLIA [id number] [place] [address] [place] Platelets (Bld) [#/Vol] 232 10*3/uL Normal 150-400 [facility] Comment on above: Order Comment: Speci men Type: BLOOD SPECIMENOrdering Facility: [facility] Address: [address] [place] [address] Performed By: #### 5 7021-8 ####[facility]ITALNCLIA [id number] [place] [address] [place] RBC (Bld) [#/Vol] 4.20 10*6/uL Normal 4.20-6.00 [facility] Comment on above: Order Comment: Speci men Type: BLOOD SPECIMENOrdering Facility: [facility] Address: [address] [place] [address] Performed By: #### 5 7021-8 ####[facility] OMANCLIA [id number] [place] [address] [place] WBC (Bld) [#/Vol] 7.38 10*3/uL Normal 3.70-11.00 [facility] Comment on above: Order Comment: Speci men Type: BLOOD SPECIMENOrdering Facility: [facility] Address: [address] [place] [address] Performed By: #### 5 7021-8 ####[facility] EFRAINTayNCLIA [id number] [place] [address] [place] [facility] Comprehensive metabolic 2000 panelon 07-26-2024 Albumin [Mass/Vol] 4.1 g/dL Normal 3.9-4.9 [facility] Comment on above: Order Comment: Speci men Type: BLOOD SPECIMENOrdering Facility: [facility] Address: [address] [place] [address] Performed By: #### 2 4323-8 ####[facility]ITALNCLIA [id number] [place] [address] [place] ALP [Catalytic activity/Vol] 94 U/L Normal 38-113 [facility] Comment on above: Order Comment: Speci men Type: BLOOD SPECIMENOrdering Facility: [facility] Address: [address] [place] [address] Performed By: #### 2 4323-8 ####[facility] EFRAINWNCLIA [id number] [place] [address] [place] ALT [Catalytic activity/Vol] 9 U/L Low 10-54 [facility] Comment on above: Order Comment: Speci men Type: BLOOD SPECIMENOrdering Facility: [facility] Address: [address] [place] [address] Performed By: #### 2 4323-8 ####[facility] MILLTOWNCLIA [id number] [place] [address] [place] Anion gap [Moles/Vol] 12 mmol/L Normal 8-15 [facility] Comment on above: Order Comment: Speci men Type: BLOOD SPECIMENOrdering Facility: [facility] Address: [address] [place] [address] Performed By: #### 2 4323-8 ####[facility] MILLTOWNCLIA [id number] [place] [address] [place] AST [Catalytic activity/Vol] 16 U/L Normal 14-40 [facility] Comment on above: Order Comment: Speci men Type: BLOOD SPECIMENOrdering Facility: [facility] Address: [address] [place] [address] Performed By: #### 2 4323-8 ####[facility] HOSPITALLIA [id number] [place] [address] [place] Bilirubin [Mass/Vol] 0.9 mg/dL Normal 0.2-1.3 [facility] Comment on above: Order Comment: Speci men Type: BLOOD SPECIMENOrdering Facility: [facility] Address: [address] [place] [address] Performed By: #### 2 4323-8 ####[facility]ENTERWNCLIA [id number] [place] [address] [place] Calcium [Mass/Vol] 9.8 mg/dL Normal 8.5-10.2 [facility] Comment on above: Order Comment: Speci men Type: BLOOD SPECIMENOrdering Facility: [facility] Address: [address] [place] [address] Performed By: #### 2 4323-8 ####[facility] MILLWNCLIA [id number] [place] [address] [place] Chloride [Moles/Vol] 103 mmol/L Normal 98-107 [facility] Comment on above: Order Comment: Speci men Type: BLOOD SPECIMENOrdering Facility: [facility] Address: [address] [place] [address] Performed By: #### 2 4323-8 ####[facility] [id number] [place] [address] [place] CO2 [Moles/Vol] 26 mmol/L Normal 22-30 [facility] Comment on above: Order Comment: Speci men Type: BLOOD SPECIMENOrdering Facility: [facility] Address: [address] [place] [address] Performed By: #### 2 4323-8 ####[facility] [id number] [place] [address] [place] Creatinine [Mass/Vol] 1.19 mg/dL Normal 0.73-1.22 [facility] Comment on above: Order Comment: Speci men Type: BLOOD SPECIMENOrdering Facility: [facility] Address: [address] [place] [address] Performed By: #### 2 4323-8 ####[facility] [id number] [address] STATES OF [facility] Creatinine and Glomerular filtration rate.predicted panel (S/P/Bld) 59 mL/min/1.73m??? Low >=60 [facility] Comment on above: Order Comment: Speci men Type: BLOOD SPECIMENOrdering Facility: [facility] Address: [address] [place] [address] Result Comment: Tracy mated Glomerular Filtration Rate (eGFR) is calculated using the 2020 CKD-EPI creatinine equation. This equation utilizes serum creatinine, sex, and age as parameters. The creatinine assay has traceable calibration to isotope dilution-mass spectrometry. Refer to KDIGO guidelines for clinical interpretation. In patients with unstable renal function, e.g. those with acute kidney injury, the eGFR may not accurately reflect actual GFR. Performed By: #### 2 4323-8 ####[facility] MILLTOWNCLIA [id number] [place] [address] [place] Glucose [Mass/Vol] 109 mg/dL High 74-99 [facility] Comment on above: Order Comment: Speci men Type: BLOOD SPECIMENOrdering Facility: [facility] Address: [address] [place], [place] [id number] Result Comment: The [place] Diabetes Association (ADA) provides guidance for cutoff values for fasting glucose and random glucose. The ADA defines fasting as no caloric intake for at least 8 hours. Fasting plasma glucose results between 100 to 125 mg/dL indicate increased risk for diabetes (prediabetes). Fasting plasma glucose results greater than or equal to 126 mg/dL meet the criteria for diagnosis of diabetes. In the absence of unequivocal hyperglycemia, results should be confirmed by repeat testing. In a patient with classic symptoms of hyperglycemia or hyperglycemic crisis, random plasma glucose results greater than or equal to 200 mg/dL meet the criteria for diagnosis of diabetes. Reference: Standards of Medical Care in Diabetes 2016, [place] [employer] Association. Diabetes Care. 2016.39(Suppl 1). Performed By: #### 2 4323-8 ####[facility]ENTERWNCLIA [id number] [place] [address] [place] Potassium [Moles/Vol] 3.6 mmol/L Low 3.7-5.1 [facility] Comment on above: Order Comment: Speci men Type: BLOOD SPECIMENOrdering Facility: [facility] Address: [address] [place] [address] Performed By: #### 2 4323-8 ####[facility]ENTERWNCLIA [id number] [place] [address] [place] Protein [Mass/Vol] 6.7 g/dL Normal 6.3-8.0 [facility] Comment on above: Order Comment: Speci men Type: BLOOD SPECIMENOrdering Facility: [facility] Address: [address] [place] [address] Performed By: #### 2 4323-8 ####[facility]ITALNCLIA [id number] [place] [address] [place] Sodium [Moles/Vol] 141 mmol/L Normal 136-144 [facility] Comment on above: Order Comment: Speci men Type: BLOOD SPECIMENOrdering Facility: [facility] Address: [address] [place] [address] Performed By: #### 2 4323-8 ####[facility] SHAZIAA [id number] [place] [address] [place] Urea nitrogen [Mass/Vol] 26 mg/dL High 9-24 [facility] Comment on above: Order Comment: Speci men Type: BLOOD SPECIMENOrdering Facility: [facility] Address: [address] [place] [address] Performed By: #### 2 4323-8 ####[facility] EFRAINIBERIAROBBYHeaven [id number] [place] [address] [place] [facility] Prostate specific Ag [Mass/Vol] 9.85 ng/mL High <2.60 [facility] Comment on above: Order Comment: Speci men Type: BLOOD SPECIMENOrdering Facility: [facility] Address: [address] [place] [address] Result Comment: Tota l PSA test methodology used is the Electrochemiluminescence Immunoassay by [employer]. Total PSA values by differing methodologies cannot be interchanged. For an individual patient, the significance of a PSA level should be interpreted in a broad clinical context, including age, race, family history, digital rectal exam, prostate size, results of prior testing (prostate biopsy, free PSA, PCA3), and use of 5-alpha reductase inhibitors. Considering the high incidence of asymptomatic cancer in the general population that may not pose an ultimate risk to a patient, the decision to recommend urological evaluation or prostate biopsy should be individualized after consideration of all these factors. REFERENCE: Joni Hamilton M.D., M.P.H., Hieu Pantoja M.D., Ph.D., Ish Singh M.D., Jeannette Parmar M.P.H., Gema Cordero Sc.D. Effect of Verification Bias on Screening for Prostate Cancer by Measurement of Prostatic Specific Antigen. N Engl J Med 2003,349:335-42. Performed By: #### 2 857-1 ####[facility] LABK[facility] [id number] [address] 07-25-2024 CNP Telephone (INTMWS) EVERTON PARDO ([id number]) 1935 M Date Time Provider Department 07/25/24 MARIANO OCAMPO INTWS During your visit today, we recorded the following information about you: Gemma Peterson LPN 07/25/2024 1:49 PM Signed Patient Silke asked to have copy of the CT brain results faxed to [facility] fax number [phone]. Printed and faxed as requested. Allergies As of Date: 07/25/2024 Noted Allergy Reaction ZETIA (EZETIMIBE) 04/07/2023 14 - Other: See Comments Comments: Joint pain GABAPENTIN 02/25/2015 12 - Shortness of Breath 14 - Other: See Comments Comments: dizziness MOBIC (MELOXICAM) 06/28/2006 8 - GI Upset SULFA (SULFONAMIDE ANTIBIOTICS) 11/29/2005 Comments: unkown Date Reviewed: 07/18/2024 Reviewed by: Dinah Nunez LPN - Fully Assessed Reason for Visit: fax copy of CT brain results to [facility] [Other] Prescriptions as of 07/25/2024 - amLODIPine (NORVASC) 2.5 mg tablet Take 1 tablet by mouth once daily. - enzalutamide 40 mg Take 4 capsules (160 mg) by mouth once daily. - tamsulosin (FLOMAX) 0.4 mg Take 1 capsule by mouth daily at bedtime. - finasteride (PROSCAR) 5 mg tablet Take 1 tablet by mouth once daily. - atorvastatin (LIPITOR) 40 mg tablet Take 1 tablet by mouth daily at bedtime. For cholesterol. - multivitamin/iron/folic acid (CENTRUM COMPLETE ORAL) Take 1 tablet by mouth once daily. - albuterol HFA (PROVENTIL HFA, VENTOLIN HFA) 90 mcg/actuation inhaler Inhale 2 Puffs as instructed every 6 hours as needed for wheezing/shortness of breath. - loratadine (CLARITIN) 10 mg tablet Take 1 tablet by mouth once daily. - clopidogrel (PLAVIX) 75 mg tablet Take 1 tablet by mouth once daily. - famotidine (PEPCID) 20 mg tablet Take 1 tablet by mouth every afternoon. - metoprolol succinate ER (TOPROL XL) 25 mg 24 hr tablet Take 12.5 mg by mouth daily at bedtime. - nitroglycerin sublingual (NITROQUICK) 0.4 mg SL tablet dissolve 1 tablet under the tongue every 5 minutes if needed for ... (REFER TO PRESCRIPTION NOTES). - aspirin, enteric coated (ASPIRIN, ENTERIC COATED) 81 mg EC tablet Take 81 mg by mouth once daily. - acetaminophen (TYLENOL EXTRA STRENGTH ORAL) Take 1 tablet by mouth as needed. - ketoconazole (NIZORAL) 2 % shampoo WASH FACE AND EARS - AND LET SIT FOR 5 MINUTES as directed ALTERN... (REFER TO PRESCRIPTION NOTES). - fluticasone 50 mcg/actuation nasal spray Use 2 Sprays in each nostril once daily as needed for Cold/Allergy Symptoms. Rinse mouth after use. - VIT C/DL-E AC/LUT/COPPER/ZNOX (PRESERVISION ORAL) Take 1 tablet by mouth two times a day. - Sodium Chloride (OCEAN NASAL) 0.65 % NASAL Mullen Use 1 [place] in the nose as needed. Problem List As Of Date 07/25/2024 Noted Resolved Generalized osteoarthrosis, unspecified site [M*11/29/2005 01/05/2013 Elevated prostate specific antigen (PSA) [R97.2*10/19/2007 01/09/2014 BPH with obstruction/lower urinary tract sympto*10/19/2007 Gout, Unspecified [M10.9] 09/03/2008 Chronic back pain [M54.50] 09/03/2008 01/08/2015 Actinic Keratosis (Premalignant AK) [L57.0] 09/11/2009 History of Malignant Neoplasm of Skin: BCC AND S*09/11/2009 01/14/2012 Surgical Scar and Fibrosis of Skin [L90.5] 09/11/2009 01/14/2012 Actinic Damage///Sun-Damaged Skin [L57.8] 09/11/2009 01/14/2012 Solar lentigo [L81.4] 09/11/2009 01/16/2012 Allergic Rhinitis [J30.9] 09/18/2009 Sleep apnea, obstructive [G47.33] 07/19/2007 12/29/2017 Periodic limb movement disorder (PLMD) [G47.61] 07/19/2007 12/29/2017 Hematuria [R31.9] 02/02/2012 01/07/2014 Urgency of urination [R39.15] 02/02/2012 12/29/2017 Frequency of urination [R35.0] 02/02/2012 12/29/2017 Dribbling [N39.43] 02/02/2012 03/02/2017 Pulmonary nodules/lesions, multiple [R91.8] 02/08/2012 01/05/2013 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] 01/02/2013 12/29/2017 Chronic prostatitis [N41.1] 01/02/2013 12/29/2017 Medication intolerance [Z78.9] 09/11/2013 01/17/2020 Hearing loss of both ears [H91.93] 01/07/2014 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, G47*01/07/2014 01/08/2015 Hyperlipidemia [E78.5] 01/07/2014 Vitamin D deficiency [E55.9] 01/15/2014 01/08/2015 DDD (degenerative disc disease), lumbar [M51.36*04/01/2014 Lumbar spondylosis [M47.816] 04/01/2014 01/08/2015 Lumbar radiculopathy [M54.16] 04/01/2014 12/29/2017 GERD (gastroesophageal reflux disease) [K21.9] 07/09/2014 Occult GI bleeding [R19.5] 09/11/2015 03/02/2017 Right shoulder pain [M25.511] 08/03/2017 12/29/2017 Disorder of scapula [M89.9] 08/03/2017 12/29/2017 Sleep apnea, obstructive [G47.33] 07/19/2007 Abnormal lung sounds [R09.89] 12/14/2018 Essential hypertension [I10] 10/08/2019 Impaired fasting blood sugar [R73.01] 01/19/2021 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 Normal [facility] CNOVon 07-18-2024 CNOV Office Visit (UCWSTR ) EVERTON PARDO ([id number]) 1935 M Date Time Provider Department 07/18/24 2:30 PM CLAYTON GILL [facility] During your visit today, we recorded the following information about you: Temperature Pulse Respiration Blood pressure 97.2 degrees 64/minute 18/minute 128/78 Weight 74.6 kg Clayton Gill MD 07/18/2024 2:31 PM Signed [facility] Subjective Everton Pardo is a 88 year old male. Patient presents with: lump on left wrist and hand: Just noticed it-had a CT today and started after that Patient was at CT scan of the brain less than an hour ago. At the end of the procedure he noticed a somewhat tender lump on his left wrist. It looks blue like there is blood under it. He does not recall any injury and he did not have an IV for the test. The lump has enlarged since he first noticed it. There is some discomfort with wrist range of motion. He takes aspirin and Plavix. Review of Systems Objective BP 128/78 Pulse 64 Temp 36.2 ?C (97.2 ?F) (Tympanic) Resp 18 Wt 74.6 kg (164 lb 7.4 oz) SpO2 99% BMI 25.76 kg/m? Physical Exam Constitutional: General: He is not in acute distress. Appearance: He is not toxic-appearing. Musculoskeletal: Right wrist: Tenderness present. No bony tenderness. Decreased range of motion. Normal pulse. Hands: Comments: 4-5cm x1cm tall hematoma over the dorsal left radial wrist. Mild discomfort with palpation or wrist ROM. No bony tenderness. 2+/4 radial pulse. Capillary refill of fingers less than 2 seconds. Neurological: Mental Status: He is alert. {ASSESSMENT/PLAN: 1. Hematoma of left wrist - ICD9: 923.21, ICD10: S60.212A Pressure dressing applied to the left wrist with Coban. He may also use ice as needed. Remove dressing with paresthesia or poor circulation to the hand. Expectant management for hematoma which should resolve over the next few weeks. Consider follow up with concerns or worsening symptoms. Clayton Gill MD Differential Diagnoses - Hematoma from occult injury - Fracture is less likely for the following reason(s): No bony tenderness on exam - Malignant mass is less likely for the following reason(s): Abrupt onset and growth of the lesion Procedures Referring Provider: MARIANO OCAMPO [[id number]] Allergies As of Date: 07/18/2024 Noted Allergy Reaction ZETIA (EZETIMIBE) 04/07/2023 14 - Other: See Comments Comments: Joint pain GABAPENTIN 02/25/2015 12 - Shortness of Breath 14 - Other: See Comments Comments: dizziness MOBIC (MELOXICAM) 06/28/2006 8 - GI Upset SULFA (SULFONAMIDE ANTIBIOTICS) 11/29/2005 Comments: unkown Date Reviewed: 07/18/2024 Reviewed by: Dinah Nunez LPN - Fully Assessed Reason for Visit: lump on left wrist and hand [Other] Cmt: Just noticed it-had a CT today and started after that Primary Visit Diagnosis:Hematoma of left wrist [S60.212A] Prescriptions as of 07/18/2024 - amLODIPine (NORVASC) 2.5 mg tablet Take 1 tablet by mouth once daily. - enzalutamide 40 mg Take 4 capsules (160 mg) by mouth once daily. - tamsulosin (FLOMAX) 0.4 mg Take 1 capsule by mouth daily at bedtime. - finasteride (PROSCAR) 5 mg tablet Take 1 tablet by mouth once daily. - atorvastatin (LIPITOR) 40 mg tablet Take 1 tablet by mouth daily at bedtime. For cholesterol. - multivitamin/iron/folic acid (CENTRUM COMPLETE ORAL) Take 1 tablet by mouth once daily. - albuterol HFA (PROVENTIL HFA, VENTOLIN HFA) 90 mcg/actuation inhaler Inhale 2 Puffs as instructed every 6 hours as needed for wheezing/shortness of breath. - loratadine (CLARITIN) 10 mg tablet Take 1 tablet by mouth once daily. - clopidogrel (PLAVIX) 75 mg tablet Take 1 tablet by mouth once daily. - famotidine (PEPCID) 20 mg tablet Take 1 tablet by mouth every afternoon. - metoprolol succinate ER (TOPROL XL) 25 mg 24 hr tablet Take 12.5 mg by mouth daily at bedtime. - nitroglycerin sublingual (NITROQUICK) 0.4 mg SL tablet dissolve 1 tablet under the tongue every 5 minutes if needed for ... (REFER TO PRESCRIPTION NOTES). - aspirin, enteric coated (ASPIRIN, ENTERIC COATED) 81 mg EC tablet Take 81 mg by mouth once daily. - acetaminophen (TYLENOL EXTRA STRENGTH ORAL) Take 1 tablet by mouth as needed. - ketoconazole (NIZORAL) 2 % shampoo WASH FACE AND EARS - AND LET SIT FOR 5 MINUTES as directed ALTERN... (REFER TO PRESCRIPTION NOTES). - fluticasone 50 mcg/actuation nasal spray Use 2 Sprays in each nostril once daily as needed for Cold/Allergy Symptoms. Rinse mouth after use. - VIT C/DL-E AC/LUT/COPPER/ZNOX (PRESERVISION ORAL) Take 1 tablet by mouth two times a day. - Sodium Chloride (OCEAN NASAL) 0.65 % NASAL Mullen Use 1 [place] in the nose as needed. Problem List As Of Date 07/18/2024 Noted Resolved Generalized osteoarthrosis, unspecified site [M*11/29/2005 01/05/2013 Elevated prostate spec (more content not included)... Normal [facility] CT BRAIN WO IVCONon 07-19-19 CT BRAIN WO IVCON * * *Final Report* * * DATE OF EXAM: Jul 18 2024 1:27PM [facility] 0504 - CT BRAIN WO IVCON / PROCEDURE REASON: Abnormal gait * * * * Physician Interpretation * * * * EXAMINATION: CT BRAIN WO IVCON CLINICAL HISTORY: Abnormal gait TECHNIQUE: Serial axial images without IV contrast were obtained from the vertex to the foramen magnum. MQ: [id number] CT Radiation dose: Integrated Dose-Length Product (DLP) for this visit = 719 mGy*cm CT Dose Reduction Employed: Automated exposure control(AEC) and iterative recon COMPARISON: None. RESULT: Post-operative change: None. Acute change: No evidence of an acute infarct or other acute parenchymal process. Hemorrhage: Chronic appearing 6 mm RIGHT subdural hematoma/hygroma along the RIGHT frontoparietal convexity, without significant mass effect or midline shift. Similar appearing asymmetric prominence of extra-axial CSF space in the RIGHT lateral posterior fossa. No evidence of acute intracranial hemorrhage. ECASS hemorrhagic transformation score: Not Applicable Mass Lesion / Mass Effect: There is no evidence of an intracranial mass or extraaxial fluid collection. No significant mass effect. Chronic change: Scattered patchy foci of low attenuation are present within the supratentorial white matter, a nonspecific finding that most commonly represents mild small vessel disease. Parenchyma: There is no significant volume loss. The brain parenchyma is otherwise within normal limits for age. Ventricles: The ventricles are within normal limits of size and configuration for age. Paranasal sinuses and skull base: The visualized paranasal sinuses are grossly clear . Numerous sclerotic lesions throughout the visualized calvarium, skull base, and maxillofacial bones, suspicious for osseous metastatic involvement. Bilateral cataract extractions. IMPRESSION: No CT evidence of acute intracranial process. Chronic appearing 6 mm RIGHT subdural hematoma/hygroma along the RIGHT frontoparietal convexity, without significant mass effect or midline shift. Similar appearing asymmetric prominence of extra-axial CSF space in the RIGHT lateral posterior fossa. Numerous sclerotic lesions throughout the visualized calvarium, skull base, and maxillofacial bones, suspicious for osseous metastatic involvement of patient's known prostate cancer. [employer] Sales: CLARITA Transcribe Date/Time: Jul 18 2024 3:03P Dictated by : LANA BAHENA MD This examination was interpreted and the report reviewed and electronically signed by: LANA BAHENA MD on Jul 18 2024 3:11PM EST [id number] Normal [facility] CT Head WO contraston 2024 IMPRESSION: No CT evidence of acute intracranial process. Chronic appearing 6 mm RIGHT subdural hematoma/hygroma along the RIGHT frontoparietal convexity, without significant mass effect or midline shift. Similar appearing asymmetric prominence of extra-axial CSF space in the RIGHT lateral posterior fossa. Numerous sclerotic lesions throughout the visualized calvarium, skull base, and maxillofacial bones, suspicious for osseous metastatic involvement of patient's known prostate cancer. [employer] Sales: CLARITA Transcribe Date/Time: Jul 18 2024 3:03P Dictated by : LANA BAHENA MD This examination was interpreted and the report reviewed and electronically signed by: LANA BAHENA MD on Jul 18 2024 3:11PM EST DIVISION OF RADIOLOGY * * *Final Report* * * DATE OF EXAM: Jul 18 2024 1:27PM [facility] 0504 - CT BRAIN WO IVCON / PROCEDURE REASON: Abnormal gait * * * * Physician Interpretation * * * * EXAMINATION: CT BRAIN WO IVCON CLINICAL HISTORY: Abnormal gait TECHNIQUE: Serial axial images without IV contrast were obtained from the vertex to the foramen magnum. MQ: CTBWO_3 CT Radiation dose: Integrated Dose-Length Product (DLP) for this visit = 719 mGy*cm CT Dose Reduction Employed: Automated exposure control(AEC) and iterative recon COMPARISON: None. RESULT: Post-operative change: None. Acute change: No evidence of an acute infarct or other acute parenchymal process. Hemorrhage: Chronic appearing 6 mm RIGHT subdural hematoma/hygroma along the RIGHT frontoparietal convexity, without significant mass effect or midline shift. Similar appearing asymmetric prominence of extra-axial CSF space in the RIGHT lateral posterior fossa. No evidence of acute intracranial hemorrhage. ECASS hemorrhagic transformation score: Not Applicable Mass Lesion / Mass Effect: There is no evidence of an intracranial mass or extraaxial fluid collection. No significant mass effect. Chronic change: Scattered patchy foci of low attenuation are present within the supratentorial white matter, a nonspecific finding that most commonly represents mild small vessel disease. Parenchyma: There is no significant volume loss. The brain parenchyma is otherwise within normal limits for age. Ventricles: The ventricles are within normal limits of size and configuration for age. Paranasal sinuses and skull base: The visualized paranasal sinuses are grossly clear . Numerous sclerotic lesions throughout the visualized calvarium, skull base, and maxillofacial bones, suspicious for osseous metastatic involvement. Bilateral cataract extractions. DIVISION OF RADIOLOGY Provider, [facility] - 07/18/2024 * * *Final Report* * * DATE OF EXAM: Jul 18 2024 1:27PM [facility] 0504 - CT BRAIN WO IVCON / PROCEDURE REASON: Abnormal gait * * * * Physician Interpretation * * * * EXAMINATION: CT BRAIN WO IVCON CLINICAL HISTORY: Abnormal gait TECHNIQUE: Serial axial images without IV contrast were obtained from the vertex to the foramen magnum. MQ: CTBWO_3 CT Radiation dose: Integrated Dose-Length Product (DLP) for this visit = 719 mGy*cm CT Dose Reduction Employed: Automated exposure control(AEC) and iterative recon COMPARISON: None. RESULT: Post-operative change: None. Acute change: No evidence of an acute infarct or other acute parenchymal process. Hemorrhage: Chronic appearing 6 mm RIGHT subdural hematoma/hygroma along the RIGHT frontoparietal convexity, without significant mass effect or midline shift. Similar appearing asymmetric prominence of extra-axial CSF space in the RIGHT lateral posterior fossa. No evidence of acute intracranial hemorrhage. ECASS hemorrhagic transformation score: Not Applicable Mass Lesion / Mass Effect: There is no evidence of an intracranial mass or extraaxial fluid collection. No significant mass effect. Chronic change: Scattered patchy foci of low attenuation are present within the supratentorial white matter, a nonspecific finding that most commonly represents mild small vessel disease. Parenchyma: There is no significant volume loss. The brain parenchyma is otherwise within normal limits for age. Ventricles: The ventricles are within normal limits of size and configuration for age. Paranasal sinuses and skull base: The visualized paranasal sinuses are grossly clear . Numerous sclerotic lesions throughout the visualized calvarium, skull base, and maxillofacial bones, suspicious for osseous metastatic involvement. Bilateral cataract extractions. IMPRESSION IMPRESSION: No CT evidence of acute intracranial process. Chronic appearing 6 mm RIGHT subdural hematoma/hygroma along the RIGHT frontoparietal convexity, without significant mass effect or midline shift. Similar appearing asymmetric prominence of extra-axial CSF space in the RIGHT lateral posterior fossa. Numerous sclerotic lesions throughout the visualized calvarium, skull base, and maxillofacial bones, suspicious for osseous metastatic involvement of patient's known prostate cancer. Engineering Supplies Sales: [employer] Transcribe Date/Time: Jul 18 2024 3:03P Dictated by : LANA BAHENA MD This examination was interpreted and the report reviewed and electronically signed by: LANA BAHENA MD on Jul 18 2024 3:11PM EST [facility] Radiology Study observation (narrative) Mónica roberts [facility] CT Head WO contrastOrdered B y: [facility] Provider on 07-18-2024 [facility] US LEG VEIN DVT UNL VAS LABo n 07-18-2024 US LEG VEIN DVT UNL VAS LAB Non-Invasive Vascular Laboratory [facility] Lower Extremity Venous Duplex Unilateral - Right Date of service/time: 07/18/2024 1:35:12 PM Name: MR. EVERTON PARDO Date of : 1935 Age: 88 years Gender: M Clinical Indication Rule out deep vein thrombosis and right leg swelling. TECHNIQUE -------- A venous duplex ultrasound examination was performed, including grayscale imaging with compression maneuvers and color Doppler and spectral Doppler examination with augmentation maneuvers and response to respiration of the below mentioned veins. FINDINGS -------- RIGHT SIDE Distal external iliac vein Doppler: normal flow. Compression: normal. Common femoral vein Doppler: normal flow. Compression: normal. Femoral vein Doppler: normal flow. Compression: normal. Popliteal vein Doppler: normal flow. Compression: normal. Posterior tibial veins Compression: normal. Peroneal veins Compression: normal. Great saphenous vein Compression: normal. Small saphenous vein Compression: normal. Popliteal duplicating vein Doppler: normal flow. Compression: normal. LEFT SIDE Common femoral vein Doppler: normal flow. IMPRESSION RIGHT SIDE - DEEP VEINS Negative for acute deep vein thrombosis. Duplicated popliteal vein. LEFT SIDE - DEEP VEINS Spontaneous and respirophasic flow noted in the common femoral vein. Technologist: Erica Camejo RVT Ordering physician: MARIANO OCAMPO Interpreting physician: Rusty Daniel MD, DARIELA Final CC [employer] Image : [id number] See Link below for Image Normal [facility] CNOVon 06-05-2024 CNOV Office Visit (INTMWS ) EVERTON PARDO ([id number]) 1935 M Date Time Provider Department 06/05/24 10:00 AM MARIANO OCAMPO INTMWS During your visit today, we recorded the following information about you: Temperature Pulse Respiration Blood pressure 96.4 degrees 60/minute 16/minute 112/58 Weight Height 76.4 kg 1.702 m Mariano Ocampo MD 06/06/2024 9:40 AM Signed Everton Pardo is a 88 year old male here for a Medicare wellness visit. Medicare Health Risk Assessment General Health Fair Exercise: Minutes/Day 30 min Exercise: Days/Week 1 day Alcohol: Daily Use Never Alcohol: Drinks/Day Patient does not drink Alcohol: 6 or more drinks Never Feel off balance Yes (fell 6 times the past year) Concerns: Teeth/Dentures No Concerns: Sexual function No Troubled by feelings Stressed; Isolated; Lonely Frequency: Eating healthy diet Nearly every day ADLs requiring help Housework Safety precautions in home/vehicle Yes Smoke, vape, chews tobacco No Difficulty hearing Yes, I wear a hearing aid Difficulty seeing No Current Providers Specialists: I have reviewed specialist-related care of the patient in the medical record. Current care team: Patient Care Team: Mariano Ocampo MD as PCP - General Yamel Lomeli, PROTOTYPE ENGINEER MANAGER.CONTRACT CLERK as Emergency Veterinary Technician (Internal Medicine) Master Guerra MD (Hematology/Oncology) Cruzito Young RN as Specialty Manager Garage (Hematology/Oncology) Outside specialists seen: Jasper Gee MD (Cardiology) Jayjay Kim MD (Dermatology) Lester Bailey MD (Ophthalmology) Medical/Family history review Reviewed and updated problem list, medical/surgical/family/soc ial history, medications, and allergies. Opioid use review Opioid Medications (last 90 days) No data to display Anxiety/Depression screening Recommendation: no further intervention at this time Cognitive screening Mini Cog Score: 3 Cognitive screening reviewed and No further action needed (score 3-5). Functional Observation Was the patient's Timed Up AND Go test unsteady or >= 12 seconds? No Advance Care Planning Patient did not wish or was not able to name a surrogate decision maker or provide an advance care plan Measurements BP 112/58 (BP Site: Left Arm, BP Position: Sitting, BP Cuff Size: Large Adult) Pulse 60 Temp (!) 35.8 ?C (96.4 ?F) (Temporal) Resp 16 Ht 170.2 cm (5' 7) Wt 76.4 kg (168 lb 6.9 oz) BMI 26.38 kg/m? Vision Screening: Follows with optometry/ophthalmology Right: 20/20 Left: 20/ 40 Both: 20/40 Assessment/Plan Medicare annual wellness visit, subsequent (Z00.00) - Counseled on healthy diet and regular exercise - Fall avoidance information provided - Personalized prevention plan provided - Covid vaccine updated. Mariano Ocampo MD 06/05/2024 11:21 AM Addendum DISCUSS THE NEED FOR 2 BLOOD THINNERS (ASPIRIN AND PLAVIX) WITH CARDIOLOGY. CONSIDER REDUCING TO PLAVIX ONLY. Advance Directive Forms Advanced Directives Forms (Algerian) FORMS: [email or web address]://author.[email or web address]. org/[email or web address]/138/[place] -sdkz-dbhoy-oq-deputy attorney general.p- df INFORMATIONAL BROCHURE: https://my.[facility]. org/-/scasherlyets/files/org/sandy menchacants-visitors/informati- on/advance-directives.ashx? la=en Advance Directives (non-Algerian) FORMS: https://my.[facility]. org/patients/information/me rhjmk-vooapjqio-uzmud/adv- ance-directives#forms-tab Please bring completed forms to your next appointment or email them to . Patient Resources How to Get Started Talking with Loved Ones about your Wishes at the End of Life [email or web address]://theconversationproj Baremetrics.org/wp-content/uploads/ /ConversationProje- qu-EnchpHwmnileCgs-Bgvvxps. pdf How to Navigate Conversations with your Care Team around your Preferences [email or web address]. org/welcome Screening schedule The following prevention plan is recommended: Depression Screening Never done Anxiety Screening Never done Advance Directive Discussion due on 03/14/2024 Covid-19 Vaccine() due on 05/30/2024 WHAT YOU CAN DO TO PREVENT FALLS Many falls can be prevented. By making some changes, you can lower your chances of falling. Four things YOU can do to prevent falls for you* and your caregiver 1. Begin a regular exercise program Exercise is one of the most important ways to lower your chances of falling. It makes you stronger and helps you feel better. Exercises that improve balance and coordination (like Darshan Chi) are the most helpful. Lack of exercise leads to weakness and increases your chances of falling. Ask your doctor or health care provider about the best type of exercise program for you. 2. Have your health care provider review your medicines Have your doctor or pharmacist review all the medicines you take, even ljwa-ozl-hxtvewc medicines. As you get older, the way medicines w (more content not included)... Normal [facility] Ivet 06-04-2024 MARGA Telephone (NALINI) EVERTON PARDO ([id number]) 1935 M Date Time Provider Department 06/04/24 CRUZITO YOUNG During your visit today, we recorded the following information about you: Cruzito Young RN 06/04/2024 12:35 PM Addendum ORAL ANTI-CANCER AGENTS FOLLOW-UP PHONE CALL Patient identified by name and date of . YES Patient is on day 8 of Xtandi (enzalutamide) for Prostate Cancer. Patient has been monitoring his BP and that has been stable. SYMPTOM ASSESSMENT Headache: No Visual Changes: No Dizziness: No Do you have any periods of confusion? No Mood changes: No Mouth or throat pain: No Appetite: no changes in appetite, appetite fair Taste changes: No Nausea: No Vomiting: No Heartburn: No. Weight gain/loss: Unable to assess Episodes of palpitations/chest discomfort/pressure/pain No Shortness of breath: No Cough: No Diarrhea: no Constipation: no Bladder/Urinary Changes: None Pain: No=0 (pain 0 on a scale of 0-10). Fever: No Chills: No Cold sensitivity: No Numbness/weakness: No Edema: No Skin changes: States redness at site of last Lupron injection, 3rd injection given 05/10/24. Denies warm or tenderness. States he was expecting a lump as he had that with previous injections. The redness just started this past week. Denies fever. He will monitor and call if any worsening of symptoms. Itching: No Yellowing of skin or eyes: Unable to assess Musculoskeletal/joint changes/issues No Bleeding issues: No Activity Level (0-100%): same as baseline Does the patient need interventions or same day appointment:No ADDITIONAL FOLLOW UP: The next outreach call is due on: not needed and was scheduled na The following lab tests are due: 07/26/24 Verified patient is aware of next appointment in the cancer center: Yes. Verified patient verbalized how to correctly refill the oral agent prescription. Yes Does the patient have any financial difficulties affording this medication? No Patient verbalizes understanding of when to seek Medical Attention? YES Patient verbalizes understanding of after-hours and weekend phone number? YES Patient verbalized importance of medication compliance in taking the oral agent as prescribed. Patient instructed to call if unable to comply. Cruzito Young RN Allergies As of Date: 06/04/2024 Noted Allergy Reaction ZETIA (EZETIMIBE) 04/07/2023 14 - Other: See Comments Comments: Joint pain GABAPENTIN 02/25/2015 12 - Shortness of Breath 14 - Other: See Comments Comments: dizziness MOBIC (MELOXICAM) 06/28/2006 8 - GI Upset SULFA (SULFONAMIDE ANTIBIOTICS) 11/29/2005 Comments: unkown Date Reviewed: 02/17/2024 Reviewed by: Jazmyn Ellison - Fully Assessed Reason for Visit: Care Coordination [3491] Cmt: ORAL ANTI-CANCER AGENTS FOLLOW-UP PHONE CALL Prescriptions as of 06/04/2024 - enzalutamide 40 mg Take 4 capsules (160 mg) by mouth once daily. - tamsulosin (FLOMAX) 0.4 mg Take 1 capsule by mouth daily at bedtime. - finasteride (PROSCAR) 5 mg tablet Take 1 tablet by mouth once daily. - atorvastatin (LIPITOR) 40 mg tablet Take 1 tablet by mouth daily at bedtime. For cholesterol. - multivitamin/iron/folic acid (CENTRUM COMPLETE ORAL) Take 1 tablet by mouth once daily. - albuterol HFA (PROVENTIL HFA, VENTOLIN HFA) 90 mcg/actuation inhaler Inhale 2 Puffs as instructed every 6 hours as needed for wheezing/shortness of breath. - folic acid/multivit-min/lutein (CENTRUM SILVER ORAL) Take 1 tablet by mouth as needed. - loratadine (CLARITIN) 10 mg tablet Take 1 tablet by mouth once daily. - clopidogrel (PLAVIX) 75 mg tablet Take 1 tablet by mouth once daily. - famotidine (PEPCID) 20 mg tablet Take 1 tablet by mouth every afternoon. - amLODIPine (NORVASC) 2.5 mg tablet Take 1 tablet by mouth once daily. - metoprolol succinate ER (TOPROL XL) 25 mg 24 hr tablet Take 12.5 mg by mouth daily at bedtime. - nitroglycerin sublingual (NITROQUICK) 0.4 mg SL tablet dissolve 1 tablet under the tongue every 5 minutes if needed for ... (REFER TO PRESCRIPTION NOTES). - aspirin, enteric coated (ASPIRIN, ENTERIC COATED) 81 mg EC tablet Take 81 mg by mouth once daily. - acetaminophen (TYLENOL EXTRA STRENGTH ORAL) Take 1 tablet by mouth as needed. - ketoconazole (NIZORAL) 2 % shampoo WASH FACE AND EARS - AND LET SIT FOR 5 MINUTES as directed ALTERN... (REFER TO PRESCRIPTION NOTES). - fluticasone 50 mcg/actuation nasal spray Use 2 Sprays in each nostril once daily as needed for Cold/Allergy Symptoms. Rinse mouth after use. - VIT C/DL-E AC/LUT/COPPER/ZNOX (PRESERVISION ORAL) Take 1 tablet by mouth two times a day. - Sodium Chloride (OCEAN NASAL) 0.65 % NASAL [place] Use 1 [place] in the nose as needed. Problem List As Of Date 06/04/2024 Noted Resolved Generalized osteoarthrosis, unspecified site [M*11/29/2005 01/05/2013 Elev (more content not included)... Normal [facility] HbA1c (Bld)on 06-01-2024 Average glucose Estimated from glycated hemoglobin (Bld) [Mass/Vol] 103 mg/dL Normal [facility] Comment on above: Order Comment: Prudencio underwood Type: BLOOD SPECIMENOrdering Facility: [facility] Address: [address] [place] [address] Result Comment: eAG: (Estimated average glucose) is a calculated value from HgbA1c and is outside medical sales representative of the average blood glucose level in the last 2-3 month period. Performed By: #### 5 5454-3 ####[facility] [id number] [address] STATES OF [facility] HbA1c (Bld) [Mass fraction] 5.2 % Normal 4.3-5.6 [facility] Comment on above: Order Comment: Prudencio underwood Type: BLOOD SPECIMENOrdering Facility: [facility] Address: [address] [place] [address] Result Comment: Amer ican Diabetes Association guidelines indicate that patients with HgbA1c in the range 5.7-6.4% are at increased risk for development of diabetes, and intervention by lifestyle modification may be beneficial. HgbA1c greater or equal to 6.5% is considered diagnostic of diabetes. Performed By: #### 5 5454-3 ####[facility] LABIA [id number] [place] [address] [place] Lipid 1996 panelon Cholesterol [Mass/Vol] 93 mg/dL Normal <200 Cl [facility] Comment on above: Order Comment: Prudencio underwood Type: BLOOD SPECIMENOrdering Facility: [facility] Address: [address] [place], [place] [id number] Result Comment: <200 mg/dL, Desirable 200-239 mg/dL, Borderline high >239 mg/dL, High Performed By: #### 2 4331-1, 308-1 ####[facility] LABCLIA [id number] [facility] [id number], [place] [address] [place] Cholesterol in HDL [Mass/Vol] 32 mg/dL Low >39 [facility] Comment on above: Order Comment: Speci men Type: BLOOD SPECIMENOrdering Facility: [facility] Address: [address] [place] [address] Result Comment: 40-5 9 mg/dL, Acceptable >59 mg/dL, High: Negative risk factor for coronary heart disease <40 mg/dL, Low: Positive risk factor for coronary heart disease Performed By: #### 2 4331-1, 3083- ####[facility] LABCLIA [id number] [facility] [id number], [facility] [place] Cholesterol in LDL [Mass/Vol] 45 mg/dL Normal <100 [facility] Comment on above: Order Comment: Prudencio underwood Type: BLOOD SPECIMENOrdering Facility: [facility] Address: [address] [place] [address] Result Comment: <100 mg/dL, Optimal 100-129 mg/dL, Near optimal/above optimal 130-159 mg/dL, Borderline high 160-189 mg/dL, High >189 mg/dL, Very high Secondary prevention optimal LDL Cholesterol levels are recommended to be < 70 mg/dL Performed By: #### 2 4331-1, 3083- ####[facility] LABCLIA [id number] [facility] [id number], [place] [address] [place] Cholesterol in LDL/Cholesterol in HDL [Mass ratio] 1.41 {ratio} Normal <2.54 [facility] Comment on above: Order Comment: Anamariai men Type: BLOOD SPECIMENOrdering Facility: [facility] Address: [address] [place] [address] Result Comment: Refe michellece: 1. National Cholesterol Education Program ATP III Guideline At-A-Glance Quick Desk Reference: National Heart, Lung, and Blood [place]. National Institutes of Health. 2001: NIH Publication No. 01-3305. 2. An International Atherosclerosis Society position paper: global recommendations for the management of dyslipidemia: executive summary, Atherosclerosis. 2014: 232(2):410-413. Performed By: #### 2 4331-1, 3083- ####[facility] LABCLIA [id number] [address] [address] [place] Cholesterol in VLDL [Mass/Vol] 16 mg/dL Normal <30 [facility] Comment on above: Order Comment: Speci men Type: BLOOD SPECIMENOrdering Facility: [facility] Address: [address] [place] [address] Performed By: #### 2 4331-1, 3083- ####[facility] LABCLIA [id number] [place] [id number] [place] Cholesterol non HDL [Mass/Vol] 61 mg/dL Normal <130 [facility] Comment on above: Order Comment: Prudencio underwood Type: BLOOD SPECIMENOrdering Facility: [facility] Address: [address] [place] [address] Result Comment: <130 mg/dL, Optimal 130-159 mg/dL, Near optimal/above optimal 160-189 mg/dL, Borderline high 190-219 mg/dL, High >219 mg/dL, Very high Secondary prevention optimal non HDL Cholesterol levels are recommended to be <100 mg/dL Performed By: #### 2 4331-1, 3083- ####[facility] LABCLIA [id number] [address] [address] [place] Cholesterol.total/Mell sterol in HDL [Mass ratio] 2.91 {ratio} Normal <5.10 [facility] Comment on above: Order Comment: Anamariai men Type: BLOOD SPECIMENOrdering Facility: [facility] Address: [address] [place] [address] Performed By: #### 2 4331-1, 3083- ####[facility] LABCLIA [id number] [place] [id number] [place] FASTING TIME 12 hrs Normal [facility] Comment on above: Order Comment: Speci men Type: BLOOD SPECIMENOrdering Facility: [facility] Address: [address] [place] [address] Performed By: #### 2 4331-1, 3084-1 ####[facility] LABIA [id number] [place] [address] [place] Triglyceride [Mass/Vol] 78 mg/dL Normal <150 C [facility] [place] Comment on above: Order Comment: Speci men Type: BLOOD SPECIMENOrdering Facility: [facility] Address: [address] [place] [address] Result Comment: <150 mg/dL, Normal 150-199 mg/dL, Borderline high 200-499 mg/dL, High >499 mg/dL, Very high Performed By: #### 2 4331-1, 3084-1 ####[facility] [id number] [place] [address] [place] Urate SerPl-mCncon Urate [Mass/Vol] 4.0 mg/dL Normal 4.0-8.1 [facility] [place] Comment on above: Order Comment: Speci men Type: BLOOD SPECIMENOrdering Facility: [facility] Address: [address] [place] [address] Performed By: #### 2 4331-1, 3084-1 ####[facility] LABIA [id number] [place] [id number] [place] CBC W Auto Differential pane l (Bld)on 05-30-2024 Basophils (Bld) [#/Vol] 0.06 10*3/uL Normal <0.11 [facility] Comment on above: Order Comment: Speci men Type: BLOOD SPECIMENOrdering Facility: [facility] Address: [address] [place] [address] Performed By: #### 5 7021-8 ####[facility] EFRAINWROBBYLIA [id number] [place] [address] [place] Basophils/100 WBC (Bld) 0.7 % Normal [facility] Comment on above: Order Comment: Speci men Type: BLOOD SPECIMENOrdering Facility: [facility] Address: [address] [place] [address] Performed By: #### 5 7021-8 ####[facility]IT[facility] [id number] [place] [address] [place] Differential cell count method Nom (Bld) Auto Normal [facility] Comment on above: Order Comment: Speci men Type: BLOOD SPECIMENOrdering Facility: [facility] Address: [address] [place] [address] Performed By: #### 5 7021-8 ####[facility] [id number] [place] [address] [place] Eosinophils (Bld) [#/Vol] 0.09 10*3/uL Normal <0.46 [facility] Comment on above: Order Comment: Speci men Type: BLOOD SPECIMENOrdering Facility: [facility] Address: [address] [place] [address] Performed By: #### 5 7021-8 ####[facility] [id number] [place] [address] [place] Eosinophils/100 WBC (Bld) 1.0 % Normal [facility] Comment on above: Order Comment: Speci men Type: BLOOD SPECIMENOrdering Facility: [facility] Address: [address] [place] [address] Performed By: #### 5 7021-8 ####[facility] HOSPITALNCLI [id number] [place] [address] [place] Erythrocyte distribution width (RBC) [Ratio] 14.3 % Normal 11.5-15.0 [facility] Comment on above: Order Comment: Speci men Type: BLOOD SPECIMENOrdering Facility: [facility] Address: [address] [place] [address] Performed By: #### 5 7021-8 ####[facility]ITALNCJORD[facility] [id number] [place] [address] [place] Hematocrit (Bld) [Volume fraction] 37.7 % Low 39.0-51.0 [facility] Comment on above: Order Comment: Speci men Type: BLOOD SPECIMENOrdering Facility: [facility] Address: [address] [place] [address] Performed By: #### 5 7021-8 ####[facility]ITALNCJORD[facility] [id number] [place] [address] [place] Hemoglobin (Bld) [Mass/Vol] 12.3 g/dL Low 13.0-17.0 [facility] Comment on above: Order Comment: Speci men Type: BLOOD SPECIMENOrdering Facility: [facility] Address: [address] [place] [address] Performed By: #### 5 7021-8 ####[facility] [id number] [place] [address] [place] Immature granulocytes (Bld) [#/Vol] 0.04 10*3/uL Normal <0.10 [facility] Comment on above: Order Comment: Speci men Type: BLOOD SPECIMENOrdering Facility: [facility] Address: [address] [place] [address] Performed By: #### 5 7021-8 ####[facility] [id number] [place] [address] [place] Immature granulocytes/100 WBC (Bld) 0.5 % Normal [facility] Comment on above: Order Comment: Speci men Type: BLOOD SPECIMENOrdering Facility: [facility] Address: [address] [place] [address] Performed By: #### 5 7021-8 ####[facility] EFRAINWNCLIA [id number] [place] [address] [place] Lymphocytes (Bld) [#/Vol] 1.17 10*3/uL Normal 1.00-4.00 [facility] Comment on above: Order Comment: Speci men Type: BLOOD SPECIMENOrdering Facility: [facility] Address: [address] [place] [address] Performed By: #### 5 7021-8 ####[facility] HOSPITALROBBYLIA [id number] [place] [address] [place] Lymphocytes/100 WBC (Bld) 13.6 % Normal [facility] Comment on above: Order Comment: Speci men Type: BLOOD SPECIMENOrdering Facility: [facility] Address: [address] [place] [address] Performed By: #### 5 7021-8 ####[facility] HOSPITALLIA [id number] [place] [address] [place] MCH (RBC) [Entitic mass] 31.8 pg Normal 26.0-34.0 [facility] Comment on above: Order Comment: Speci men Type: BLOOD SPECIMENOrdering Facility: [facility] Address: [address] [place] [address] Performed By: #### 5 7021-8 ####[facility] CENTERWNCLIA [id number] [place] [address] [place] MCHC (RBC) [Mass/Vol] 32.6 g/dL Normal 30.5-36.0 [facility] Comment on above: Order Comment: Speci men Type: BLOOD SPECIMENOrdering Facility: [facility] Address: [address] [place] [address] Performed By: #### 5 7021-8 ####[facility] HOSPITALLIA [id number] [place] [address] [place] MCV (RBC) [Entitic vol] 97.4 fL Normal 80.0-100.0 [facility] Comment on above: Order Comment: Speci men Type: BLOOD SPECIMENOrdering Facility: [facility] Address: [address] [place] [address] Performed By: #### 5 7021-8 ####[facility]ITALA [id number] [place] [address] [place] Monocytes (Bld) [#/Vol] 0.89 10*3/uL High <0.87 [facility] Comment on above: Order Comment: Speci men Type: BLOOD SPECIMENOrdering Facility: [facility] Address: [address] [place] [address] Performed By: #### 5 7021-8 ####[facility] [id number] [place] [address] [place] Monocytes/100 WBC (Bld) 10.4 % Normal [facility] Comment on above: Order Comment: Speci men Type: BLOOD SPECIMENOrdering Facility: [facility] Address: [address] [place] [address] Performed By: #### 5 7021-8 ####[facility]PITALA [id number] [place] [address] [place] Neutrophils (Bld) [#/Vol] 6.33 10*3/uL Normal 1.45-7.50 [facility] Comment on above: Order Comment: Speci men Type: BLOOD SPECIMENOrdering Facility: [facility] Address: [address] [place] [address] Performed By: #### 5 7021-8 ####[facility] H[facility]ITALNCLIA [id number] [place] [address] [place] Neutrophils/100 WBC (Bld) 73.8 % Normal [facility] Comment on above: Order Comment: Speci men Type: BLOOD SPECIMENOrdering Facility: [facility] Address: [address] [place] [address] Performed By: #### 5 7021-8 ####[facility] [id number] [place] [address] [place] Nucleated RBC (Bld) [#/Vol] 10*3/uL Normal <0.01 [facility] Comment on above: Order Comment: Speci men Type: BLOOD SPECIMENOrdering Facility: [facility] Address: [address] [place] [address] Performed By: #### 5 7021-8 ####[facility] [id number] [place] [address] [place] Nucleated RBC/100 WBC (Bld) [Ratio] 0.0 /100 WBC Normal [facility] Comment on above: Order Comment: Speci men Type: BLOOD SPECIMENOrdering Facility: [facility] Address: [address] [place] [address] Performed By: #### 5 7021-8 ####[facility] [id number] [place] [address] [place] Platelet mean volume (Bld) [Entitic vol] 10.3 fL Normal 9.0-12.7 [facility] Comment on above: Order Comment: Speci men Type: BLOOD SPECIMENOrdering Facility: [facility] Address: [address] [place] [address] Performed By: #### 5 7021-8 ####[facility] [id number] [place] [address] [place] Platelets (Bld) [#/Vol] 257 10*3/uL Normal 150-400 [facility] Comment on above: Order Comment: Speci men Type: BLOOD SPECIMENOrdering Facility: [facility] Address: [address] [place], [place] [address] Performed By: #### 5 7021-8 ####[facility] H[facility]ITALNCLIA [id number] [place] [address] [place] RBC (Bld) [#/Vol] 3.87 10*6/uL Low 4.20-6.00 [facility] Comment on above: Order Comment: Speci men Type: BLOOD SPECIMENOrdering Facility: [facility] Address: [address] [place] [address] Performed By: #### 5 7021-8 ####[facility]ITALNCLIA [id number] [place] [address] [place] WBC (Bld) [#/Vol] 8.58 10*3/uL Normal 3.70-11.00 [facility] Comment on above: Order Comment: Speci men Type: BLOOD SPECIMENOrdering Facility: [facility] Address: [address] [place] [address] Performed By: #### 5 7021-8 ####[facility] HOSPITALLIA [id number] [address] [place] CNPJessie 05-30-2024 [facility] EVERTON PARDO ([id number]) 1935 M Date Time Provider Department 05/30/24 MARIANO OCAMPO INTWS During your visit today, we recorded the following information about you: Usha Dodson 05/30/2024 2:05 PM Signed Pt asking if he needs to get labs done before well check next week, please review and advise. Usha Dodson May 30, 2024 2:04 PM Mariano Ocampo MD 05/30/2024 8:46 PM Signed Fasting labs ordered. Martha Torres OCCA 05/31/2024 8:28 AM Signed TC to patients spouse, listed in chart to receive medical information. Spouse verbalized understanding of fasting orders placed below. REDDY Castillo Allergies As of Date: 05/30/2024 Noted Allergy Reaction ZETIA (EZETIMIBE) 04/07/2023 14 - Other: See Comments Comments: Joint pain GABAPENTIN 02/25/2015 12 - Shortness of Breath 14 - Other: See Comments Comments: dizziness MOBIC (MELOXICAM) 06/28/2006 8 - GI Upset SULFA (SULFONAMIDE ANTIBIOTICS) 11/29/2005 Comments: unkown Date Reviewed: 02/17/2024 Reviewed by: Jazmyn Ellison - Fully Assessed Primary Visit Diagnosis:Hyperlipidemia, unspecified hyperlipidemia type [E78.5] Other Visit Diagnoses:Impaired fasting blood sugar [R73.01] Gout, unspecified cause, unspecified chronicity, unspecified site [M10.9] Order(s):LIPID PANEL, FASTING [SQLIPB] Order #: [id number] FUTURE HEMOGLOBIN A1C [TJBPK6T] Order #: [id number] FUTURE URIC ACID [SQURIC] Order #: [id number] FUTURE Prescriptions as of 05/31/2024 - enzalutamide 40 mg Take 4 capsules (160 mg) by mouth once daily. - tamsulosin (FLOMAX) 0.4 mg Take 1 capsule by mouth daily at bedtime. - finasteride (PROSCAR) 5 mg tablet Take 1 tablet by mouth once daily. - atorvastatin (LIPITOR) 40 mg tablet Take 1 tablet by mouth daily at bedtime. For cholesterol. - multivitamin/iron/folic acid (CENTRUM COMPLETE ORAL) Take 1 tablet by mouth once daily. - albuterol HFA (PROVENTIL HFA, VENTOLIN HFA) 90 mcg/actuation inhaler Inhale 2 Puffs as instructed every 6 hours as needed for wheezing/shortness of breath. - folic acid/multivit-min/lutein (CENTRUM SILVER ORAL) Take 1 tablet by mouth as needed. - loratadine (CLARITIN) 10 mg tablet Take 1 tablet by mouth once daily. - clopidogrel (PLAVIX) 75 mg tablet Take 1 tablet by mouth once daily. - famotidine (PEPCID) 20 mg tablet Take 1 tablet by mouth every afternoon. - amLODIPine (NORVASC) 2.5 mg tablet Take 1 tablet by mouth once daily. - metoprolol succinate ER (TOPROL XL) 25 mg 24 hr tablet Take 12.5 mg by mouth daily at bedtime. - nitroglycerin sublingual (NITROQUICK) 0.4 mg SL tablet dissolve 1 tablet under the tongue every 5 minutes if needed for ... (REFER TO PRESCRIPTION NOTES). - aspirin, enteric coated (ASPIRIN, ENTERIC COATED) 81 mg EC tablet Take 81 mg by mouth once daily. - acetaminophen (TYLENOL EXTRA STRENGTH ORAL) Take 1 tablet by mouth as needed. - ketoconazole (NIZORAL) 2 % shampoo WASH FACE AND EARS - AND LET SIT FOR 5 MINUTES as directed ALTERN... (REFER TO PRESCRIPTION NOTES). - fluticasone 50 mcg/actuation nasal spray Use 2 Sprays in each nostril once daily as needed for Cold/Allergy Symptoms. Rinse mouth after use. - VIT C/DL-E AC/LUT/COPPER/ZNOX (PRESERVISION ORAL) Take 1 tablet by mouth two times a day. - Sodium Chloride (OCEAN NASAL) 0.65 % NASAL [place] Use 1 [place] in the nose as needed. Problem List As Of Date 05/30/2024 Noted Resolved Generalized osteoarthrosis, unspecified site [M*11/29/2005 01/05/2013 Elevated prostate specific antigen (PSA) [R97.2*10/19/2007 01/09/2014 BPH with obstruction/lower urinary tract sympto*10/19/2007 Gout, Unspecified [M10.9] 09/03/2008 Chronic back pain [M54.50] 09/03/2008 01/08/2015 Actinic Keratosis (Premalignant AK) [L57.0] 09/11/2009 History of Malignant Neoplasm of Skin: BCC AND S*09/11/2009 01/14/2012 Surgical Scar and Fibrosis of Skin [L90.5] 09/11/2009 01/14/2012 Actinic Damage///Sun-Damaged Skin [L57.8] 09/11/2009 01/14/2012 Solar lentigo [L81.4] 09/11/2009 01/16/2012 Allergic Rhinitis [J30.9] 09/18/2009 Sleep apnea, obstructive [G47.33] 07/19/2007 12/29/2017 Periodic limb movement disorder (PLMD) [G47.61] 07/19/2007 12/29/2017 Hematuria [R31.9] 02/02/2012 01/07/2014 Urgency of urination [R39.15] 02/02/2012 12/29/2017 Frequency of urination [R35.0] 02/02/2012 12/29/2017 Dribbling [N39.43] 02/02/2012 03/02/2017 Pulmonary nodules/lesions, multiple [R91.8] 02/08/2012 01/05/2013 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 Normal [facility] Comprehensive metabolic 2000 panelon 05-30-2024 Albumin [Mass/Vol] 4.2 g/dL Normal 3.9-4.9 [facility] Comment on above: Order Comment: Speci men Type: BLOOD SPECIMENOrdering Facility: [facility] Address: [address] [place] [address] Performed By: #### 2 4323-8 ####[facility] [id number] [place] [address] [place] ALP [Catalytic activity/Vol] 129 U/L High 38-113 [facility] Comment on above: Order Comment: Speci men Type: BLOOD SPECIMENOrdering Facility: [facility] Address: [address] [place] [address] Performed By: #### 2 4323-8 ####[facility] NICOLE MILLTOWNCLIA [id number] [place] [address] [place] ALT [Catalytic activity/Vol] 17 U/L Normal 10-54 [facility] Comment on above: Order Comment: Speci men Type: BLOOD SPECIMENOrdering Facility: [facility] Address: [address] [place] [address] Performed By: #### 2 4323-8 ####[facility] MILLTOWNCLIA [id number] [place] [address] [place] Anion gap [Moles/Vol] 7 mmol/L Low 8-15 [facility] Comment on above: Order Comment: Speci men Type: BLOOD SPECIMENOrdering Facility: [facility] Address: [address] [place] [address] Performed By: #### 2 4323-8 ####[facility] CENTERWNCLIA [id number] [place] [address] [place] AST [Catalytic activity/Vol] 21 U/L Normal 14-40 [facility] Comment on above: Order Comment: Speci men Type: BLOOD SPECIMENOrdering Facility: [facility] Address: [address] [place] [address] Performed By: #### 2 4323-8 ####[facility]ITALNCLIA [id number] [place] [address] [place] Bilirubin [Mass/Vol] 0.4 mg/dL Normal 0.2-1.3 [facility] Comment on above: Order Comment: Speci men Type: BLOOD SPECIMENOrdering Facility: [facility] Address: [address] [place] [address] Performed By: #### 2 4323-8 ####[facility]ITALNCLIA [id number] [place] [address] [place] Calcium [Mass/Vol] 9.8 mg/dL Normal 8.5-10.2 [facility] Comment on above: Order Comment: Speci men Type: BLOOD SPECIMENOrdering Facility: [facility] Address: [address] [place] [address] Performed By: #### 2 4323-8 ####[facility]ENTERWNCLIA [id number] [place] [address] [place] Chloride [Moles/Vol] 109 mmol/L High 98-107 [facility] Comment on above: Order Comment: Speci men Type: BLOOD SPECIMENOrdering Facility: [facility] Address: [address] [place] [address] Performed By: #### 2 4323-8 ####[facility] HOSPITALLI [id number] [place] [address] [place] CO2 [Moles/Vol] 27 mmol/L Normal 22-30 [facility] Comment on above: Order Comment: Speci men Type: BLOOD SPECIMENOrdering Facility: [facility] Address: [address] [place] [address] Performed By: #### 2 4323-8 ####[facility] HOSPITALLIA [id number] [place] [address] [place] Creatinine [Mass/Vol] 1.18 mg/dL Normal 0.73-1.22 [facility] Comment on above: Order Comment: Speci men Type: BLOOD SPECIMENOrdering Facility: [facility] Address: [address] [place] [address] Performed By: #### 2 4323-8 ####[facility] [id number] [place] [address] [place] Creatinine and Glomerular filtration rate.predicted panel (S/P/Bld) 60 mL/min/1.73m??? Normal >=60 [facility] Comment on above: Order Comment: Speci men Type: BLOOD SPECIMENOrdering Facility: [facility] Address: [address] [place] [address] Result Comment: Tracy mated Glomerular Filtration Rate (eGFR) is calculated using the 2020 CKD-EPI creatinine equation. This equation utilizes serum creatinine, sex, and age as parameters. The creatinine assay has traceable calibration to isotope dilution-mass spectrometry. Refer to KDIGO guidelines for clinical interpretation. In patients with unstable renal function, e.g. those with acute kidney injury, the eGFR may not accurately reflect actual GFR. Performed By: #### 2 4323-8 ####[facility] [id number] [place] [address] [place] Glucose [Mass/Vol] 123 mg/dL High 74-99 [facility] Comment on above: Order Comment: Prudencio underwood Type: BLOOD SPECIMENOrdering Facility: [facility] Address: [address] [place] [address] Result Comment: The [place] Diabetes [employer] (ADA) provides guidance for cutoff values for fasting glucose and random glucose. The ADA defines fasting as no caloric intake for at least 8 hours. Fasting plasma glucose results between 100 to 125 mg/dL indicate increased risk for diabetes (prediabetes). Fasting plasma glucose results greater than or equal to 126 mg/dL meet the criteria for diagnosis of diabetes. In the absence of unequivocal hyperglycemia, results should be confirmed by repeat testing. In a patient with classic symptoms of hyperglycemia or hyperglycemic crisis, random plasma glucose results greater than or equal to 200 mg/dL meet the criteria for diagnosis of diabetes. Reference: Standards of Medical Care in Diabetes 2016, [place] [employer]. Diabetes Care. 2016.39(Suppl 1). Performed By: #### 2 4323-8 ####[facility] [id number] [place] [address] [place] Potassium [Moles/Vol] 4.9 mmol/L Normal 3.7-5.1 [facility] Comment on above: Order Comment: Prudencio underwood Type: BLOOD SPECIMENOrdering Facility: [facility] Address: [address] [place] [address] Performed By: #### 2 4323-8 ####[facility] MILLTOWNCLIA [id number] [place] [address] [place] Protein [Mass/Vol] 6.6 g/dL Normal 6.3-8.0 [facility] Comment on above: Order Comment: Speci men Type: BLOOD SPECIMENOrdering Facility: [facility] Address: [address] [place] [address] Performed By: #### 2 4323-8 ####[facility] MILLTOWNCLIA [id number] [place] [address] [place] Sodium [Moles/Vol] 143 mmol/L Normal 136-144 [facility] Comment on above: Order Comment: Speci men Type: BLOOD SPECIMENOrdering Facility: [facility] Address: [address] [place] [address] Performed By: #### 2 4323-8 ####[facility] MILLWNCLIA [id number] [place] [address] [place] Urea nitrogen [Mass/Vol] 21 mg/dL Normal 9-24 [facility] Comment on above: Order Comment: Speci men Type: BLOOD SPECIMENOrdering Facility: [facility] Address: [address] [place] [address] Performed By: #### 2 4323-8 ####[facility]ITALNCLIA [id number] [place] [address] [place] PSA SerPl-mCncon 05-30-2024 Prostate specific Ag [Mass/Vol] 19.34 ng/mL High <2.60 [facility] Comment on above: Order Comment: Speci men Type: BLOOD SPECIMENOrdering Facility: [facility] Address: [address] [place] [address] Result Comment: Tota l PSA test methodology used is the Electrochemiluminescence Immunoassay by [employer]. Total PSA values by differing methodologies cannot be interchanged. For an individual patient, the significance of a PSA level should be interpreted in a broad clinical context, including age, race, family history, digital rectal exam, prostate size, results of prior testing (prostate biopsy, free PSA, PCA3), and use of 5-alpha reductase inhibitors. Considering the high incidence of asymptomatic cancer in the general population that may not pose an ultimate risk to a patient, the decision to recommend urological evaluation or prostate biopsy should be individualized after consideration of all these factors. REFERENCE: Joni Hamilton M.D., M.P.H., Hieu Pantoja M.D., Ph.D., Ish Singh M.D., Jeannette Parmar, M.P.H., Gema Cordero Sc.Jace. Effect of Verification Bias on Screening for Prostate Cancer by Measurement of Prostatic Specific Antigen. N Engl J Med 2003,349:335-42. Performed By: #### 2 857-1 ####[facility] [id number] [address] CNPJessie 05-24-2024 [facility]NAL[facility] EVERTON PARDO ([id number]) 1935 M Date Time Provider Department 05/24/24 CRUZITO YOUNG During your visit today, we recorded the following information about you: Cruzito Young, NEISHA 05/24/2024 2:50 PM Signed ORAL ANTI-CANCER AGENTS EDUCATION patient called today for oral medication education of Xtandi for Prostate Cancer Anticipated/Scheduled start date: 05/28/24 READINESS TO LEARN Cognitive Ability: Alert and oriented Motivation to Learn: Interested Family Support: High - Very involved in pt care Instruction Provided to: Patient Patient learns best by: Multiple Methods Factors affecting learning: None Physical limitation affecting learning: None ODONNELL ASSESSMENT: 1.) Verified that patient knows that the oral agents are for cancer and are taken by mouth. Yes 2.) Medication review completed during visit. Yes 3.) Patient is able to swallow pills. Yes 4.) Patient is able to read the drug label/information. Yes 5.) Patient is able to open the medication bottles and packages. Yes 6.) Has patient taken other pills for cancer? YES, please explain: Casodex 7.) Is patient experiencing any symptoms that would affect their ability to keep down pills, for example nausea or vomiting? No 8.) Verified that patient understands prescription delivery, benefit investigation and refill process. Yes DRUG-SPECIFIC EDUCATION: 1.) Verified patient knows the drug name. Yes 2.) Verified patient understands the dose and schedule of oral anti cancer agent. Yes 3.) Verified patient knows what to do if a medication dose is missed. Yes 4.) Verified patient understands where to store the drug. Yes 5.) Verified patient understands potential side effects and how to manage them. Yes 6.)Verified patient understands handling precautions of oral anti cancer agent. Yes 7.) Verified patient was given written instructions and understands when and whom to call with questions. Yes 8.) Verified patient understands where and how to return drug. Yes 9.) Verified patient received drug specific adult education handout and neutropenic wallet card Yes EVALUATE: The patient demonstrated an understanding of all the above education using the teach-back method. Yes Instructed to call us with any questions, concerns, and/or unresolved symptoms. Will continue to follow up and provide reinforcement of teaching topics as needed. Cruzito Young RN Allergies As of Date: 05/24/2024 Noted Allergy Reaction ZETIA (EZETIMIBE) 04/07/2023 14 - Other: See Comments Comments: Joint pain GABAPENTIN 02/25/2015 12 - Shortness of Breath 14 - Other: See Comments Comments: dizziness MOBIC (MELOXICAM) 06/28/2006 8 - GI Upset SULFA (SULFONAMIDE ANTIBIOTICS) 11/29/2005 Comments: unkown Date Reviewed: 02/17/2024 Reviewed by: Jazmyn Ellison - Fully Assessed Reason for Visit: Care Coordination [3644] Cmt: ORAL ANTI-CANCER AGENTS EDUCATION Prescriptions as of 05/24/2024 - enzalutamide 40 mg Take 4 capsules (160 mg) by mouth once daily. - tamsulosin (FLOMAX) 0.4 mg Take 1 capsule by mouth daily at bedtime. - finasteride (PROSCAR) 5 mg tablet Take 1 tablet by mouth once daily. - atorvastatin (LIPITOR) 40 mg tablet Take 1 tablet by mouth daily at bedtime. For cholesterol. - multivitamin/iron/folic acid (CENTRUM COMPLETE ORAL) Take 1 tablet by mouth once daily. - albuterol HFA (PROVENTIL HFA, VENTOLIN HFA) 90 mcg/actuation inhaler Inhale 2 Puffs as instructed every 6 hours as needed for wheezing/shortness of breath. - folic acid/multivit-min/lutein (CENTRUM SILVER ORAL) Take 1 tablet by mouth as needed. - loratadine (CLARITIN) 10 mg tablet Take 1 tablet by mouth once daily. - clopidogrel (PLAVIX) 75 mg tablet Take 1 tablet by mouth once daily. - famotidine (PEPCID) 20 mg tablet Take 1 tablet by mouth every afternoon. - amLODIPine (NORVASC) 2.5 mg tablet Take 1 tablet by mouth once daily. - metoprolol succinate ER (TOPROL XL) 25 mg 24 hr tablet Take 12.5 mg by mouth daily at bedtime. - nitroglycerin sublingual (NITROQUICK) 0.4 mg SL tablet dissolve 1 tablet under the tongue every 5 minutes if needed for ... (REFER TO PRESCRIPTION NOTES). - aspirin, enteric coated (ASPIRIN, ENTERIC COATED) 81 mg EC tablet Take 81 mg by mouth once daily. - acetaminophen (TYLENOL EXTRA STRENGTH ORAL) Take 1 tablet by mouth as needed. - ketoconazole (NIZORAL) 2 % shampoo WASH FACE AND EARS - AND LET SIT FOR 5 MINUTES as directed ALTERN... (REFER TO PRESCRIPTION NOTES). - fluticasone 50 mcg/actuation nasal spray Use 2 Sprays in each nostril once daily as needed for Cold/Allergy Symptoms. Rinse mouth after use. - VIT C/DL-E AC/LUT/COPPER/ZNOX (PRESERVISION ORAL) Take 1 tablet by mouth two times a day. - Sodium Chloride (OCEAN NASAL) 0.65 % NASAL Mullen Use 1 [place] in the nose as needed. Problem Li (more content not included)... Normal [facility] EVERTON PARDO ([id number]) 1935 M Date Time Provider Department 05/18/24 ARETHA ZAZUETA During your visit today, we recorded the following information about you: Aretha Zazueta RN 05/18/2024 12:53 PM Signed stopped by the office requesting information on Xtandi. was given a folder with Xtandi information from chemo experts. informed a nurse from the office will contact her next week to review the medication information. is asking if patient can delay the start date a week d/t the time change. Spoke to lissette Leal for patient to start on 05/28. Called number on file and spoke to patient. Patient informed of start date and stated understanding. Patient had further questions regarding the medication. Patient aware that his picked up a handout on Xtandi today in our office. Patient stated he will read the handout. Patient aware someone from our office will contact him next week to review the information. Patient stated understanding. Patient started/will start taking xtandi on 05/28/24. 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 - tamsulosin (FLOMAX) 0.4 mg Take 1 capsule by mouth daily at bedtime. - finasteride (PROSCAR) 5 mg tablet Take 1 tablet by mouth once daily. - atorvastatin (LIPITOR) 40 mg tablet Take 1 tablet by mouth daily at bedtime. For cholesterol. - multivitamin/iron/folic acid (CENTRUM COMPLETE ORAL) Take 1 tablet by mouth once daily. - albuterol HFA (PROVENTIL HFA, VENTOLIN HFA) 90 mcg/actuation inhaler Inhale 2 Puffs as instructed every 6 hours as needed for wheezing/shortness of breath. - folic acid/multivit-min/lutein (CENTRUM SILVER ORAL) Take 1 tablet by mouth as needed. - loratadine (CLARITIN) 10 mg tablet Take 1 tablet by mouth once daily. - clopidogrel (PLAVIX) 75 mg tablet Take 1 tablet by mouth once daily. - famotidine (PEPCID) 20 mg tablet Take 1 tablet by mouth every afternoon. - amLODIPine (NORVASC) 2.5 mg tablet Take 1 tablet by mouth once daily. - metoprolol succinate ER (TOPROL XL) 25 mg 24 hr tablet Take 12.5 mg by mouth daily at bedtime. - nitroglycerin sublingual (NITROQUICK) 0.4 mg SL tablet dissolve 1 tablet under the tongue every 5 minutes if needed for ... (REFER TO PRESCRIPTION NOTES). - aspirin, enteric coated (ASPIRIN, ENTERIC COATED) 81 mg EC tablet Take 81 mg by mouth once daily. - acetaminophen (TYLENOL EXTRA STRENGTH ORAL) Take 1 tablet by mouth as needed. - ketoconazole (NIZORAL) 2 % shampoo WASH FACE AND EARS - AND LET SIT FOR 5 MINUTES as directed ALTERN... (REFER TO PRESCRIPTION NOTES). - fluticasone 50 mcg/actuation nasal spray Use 2 Sprays in each nostril once daily as needed for Cold/Allergy Symptoms. Rinse mouth after use. - VIT C/DL-E AC/LUT/COPPER/ZNOX (PRESERVISION ORAL) Take 1 tablet by mouth two times a day. - Sodium Chloride (OCEAN NASAL) 0.65 % NASAL Mullen Use 1 [place] in the nose as needed. Problem List As Of Date 05/18/2024 Noted Resolved Generalized osteoarthrosis, unspecified site [M*11/29/2005 01/05/2013 Elevated prostate specific antigen (PSA) [R97.2*10/19/2007 01/09/2014 BPH with obstruction/lower urinary tract sympto*10/19/2007 Gout, Unspecified [M10.9] 09/03/2008 Chronic back pain [M54.50] 09/03/2008 01/08/2015 Actinic Keratosis (Premalignant AK) [L57.0] 09/11/2009 History of Malignant Neoplasm of Skin: BCC AND S*09/11/2009 01/14/2012 Surgical Scar and Fibrosis of Skin [L90.5] 09/11/2009 01/14/2012 Actinic Damage///Sun-Damaged Skin [L57.8] 09/11/2009 01/14/2012 Solar lentigo [L81.4] 09/11/2009 01/16/2012 Allergic Rhinitis [J30.9] 09/18/2009 Sleep apnea, obstructive [G47.33] 07/19/2007 12/29/2017 Periodic limb movement disorder (PLMD) [G47.61] 07/19/2007 12/29/2017 Hematuria [R31.9] 02/02/2012 01/07/2014 Urgency of urination [R39.15] 02/02/2012 12/29/2017 Frequency of urination [R35.0] 02/02/2012 12/29/2017 Dribbling [N39.43] 02/02/2012 03/02/2017 Pulmonary nodules/lesions, multiple [R91.8] 02/08/2012 01/05/2013 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 Normal [facility] CNOVSPon 05-10-2024 CNOVSP Visit (SP) Office (H EMAWS) EVERTON PARDO ([id number]) 1935 M Date Time Provider Department 05/10/24 9:40 AM MASTER GUERRA During your visit today, we recorded the following information about you: Temperature Pulse Blood pressure Weight 97.2 degrees 68/minute 112/65 77.1 kg Master Guerra MD 05/10/2024 9:54 AM Signed (Elements copied from my note dated October 07, 2023, have been reviewed and updated where appropriate, and all reflect current assessment and medical decision making from today's encounter, May 10, 2024) HISTORY OF PRESENT ILLNESS: Everton Pardo is a 87 year old male referred by Dr Ocampo re PSA 5000, bone lesions. Saw Maskim Whitaker written he took last dose of Rx 2 days ago. Had a bone biopsy 08-30-23. Showed metastatic prostate cancer. Here for follow up and first lupron injection. Feels ok, no pain, just tired. Discussed SE hyunron, general treatment approach to prostate cancer, treatment goals. Here for follow up, doing well. 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 PSA down significantly, but seems to be plateaued RECOMMENDATION/PLAN: 1. Lupron and zometa q 3 months 2. Add enzalutamide 3. Back q 3 months with PSA. Written and verbal health teaching given to patient, patient verbalizes understanding and agrees with treatment plan. 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 Mccormack, immunotherapy. 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 Diverticulosis of colon 06/28/2001 Tortuous colon ELEVATED PROSTATE SPECIFIC ANTIGEN 10/19/2007 PSA 3.8 in -, 4.7 in 06-19, 4.3 in 09-19: Malgieri rec routine follow up Environmental allergies Essential hypertension 10/08/2019 Gastritis 08/13/1999 GENERAL OSTEOARTHROSIS 11/29/2005 GOUT NOS 09/03/2008 Uric acid 5.8 in 08-20, 7.9 in 10-20 (during acute attack) Hearing loss of both ears 01/07/2014 Hypertrophy of prostate with urinary obstruction and other lower urinary tract symptoms (LUTS) 10/19/2007 Lumbago 09/03/2008 MRI 10: small central herniation at L4-5, mild DDD L4-5 and L5-S1 Rec Tylenol and PT in 08-20: need to review old MRI and consider spinal stenosis Reviewed the importance of weight loss as of 08-20 Nonrheumatic aortic valve stenosis 08/13/2022 Periodic limb movement disorder (PLMD) 07/19/2007 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 I'm not using it anymore. Snoring PAST SURGICAL HISTORY Procedure Laterality Date APPENDECTOMY 194 CC CORONARY STENT 09/20/2022 PCI D1; RUPESH pLAD, OM1, and rPDA COLONOSCOPY 08/21/2018 COLONOSCOPY FLX DX W/COLLJ SPEC WHEN PFRMD 06/28/2001 Colonoscopy ESOPHAGOGASTRODUODENOSCOPY TRANSORAL DIAGNOSTIC 08/02/2001 EGD ESOPHAGOGASTRODUODENOSCOPY TRANSORAL DIAGNOSTIC 12/15/2015 EGD LEFT HEART CATH,PERCUTANEOUS 09/13/2022 PAST SURGICAL HISTORY OF 2010 cysts, skin lesions, basal cell cancer PROSTATE BIOPSY 08/2012 FAMILY HISTORY Problem Relation Age of Onset Cancer Mother Pt states does not remember type Heart Father [place] age 60s GI Sister gastrectomy Cancer Sister stomach cancer other (fibromyalgia) Sister Prostate Cancer Brother No Known Problems Other Lung disease Social History Tobacco Use Smoking status: Never Smokeless tobacco: Never Tobacco comments: No smoking in childhood home. Vaping Use Vaping status: Never Used Substance Use Topics Alcohol use: No Drug use: No ALLERGIES: ALLERGIES Allergen Reactions Zetia [Ezetimibe] Other: See Comments Joint pain Gabapentin Shortness of Breath, Other: See Comments dizziness Mobic [Meloxicam] GI Upset Sulfa (Sulfonamide * unkown CURRENT OUTPATIENT MEDICATIONS: tamsulosin (FLOMAX) 0.4 mg Take 1 capsule by mouth daily at bedtime. finasteride (PROSCAR) 5 mg tablet Take 1 tablet by mouth once daily. atorvastatin (LIPITOR) 40 mg tablet Take 1 tablet by mouth daily at bedtime. For cholesterol. multivitamin/iron/folic acid (CENTRUM COMPLETE ORAL) Take 1 tablet by mouth once daily. albuterol HFA (PROVENTIL HFA, VENTOLIN HFA) 90 mcg/actuation inhaler Inhale 2 Puffs as instructed every 6 hours as needed for wheezing/shortness of breath. loratadine (CLARITIN) 10 mg tablet Take 1 tablet by mouth once daily. (Patient taking differently: Take 10 mg by mo (more content not included)... Normal [facility] CBC W Auto Differential pane l (Bld)on 05-08-2024 Basophils (Bld) [#/Vol] 0.07 10*3/uL Normal <0.11 [facility] Comment on above: Order Comment: Speci men Type: BLOOD SPECIMENOrdering Facility: [facility] Address: [address] [place] [address] Performed By: #### 5 7021-8 ####[facility] [id number] [place] [address] [place] Basophils/100 WBC (Bld) 1.0 % Normal C [facility] Comment on above: Order Comment: Speci men Type: BLOOD SPECIMENOrdering Facility: [facility] Address: [address] [place] [address] Performed By: #### 5 7021-8 ####[facility] [id number] [place] [address] [place] Differential cell count method Nom (Bld) Auto Normal [facility] Comment on above: Order Comment: Speci men Type: BLOOD SPECIMENOrdering Facility: [facility] Address: [address] [place] [address] Performed By: #### 5 7021-8 ####[facility] [id number] [place] [address] [place] Eosinophils (Bld) [#/Vol] 0.55 10*3/uL High <0.46 [facility] Comment on above: Order Comment: Speci men Type: BLOOD SPECIMENOrdering Facility: [facility] Address: [address] [place] [address] Performed By: #### 5 7021-8 ####[facility] [id number] [place] [address] [place] Eosinophils/100 WBC (Bld) 7.6 % Normal [facility] Comment on above: Order Comment: Speci men Type: BLOOD SPECIMENOrdering Facility: [facility] Address: [address] [place] [address] Performed By: #### 5 7021-8 ####[facility]ITALNCJORD[facility] [id number] [place] [address] [place] Erythrocyte distribution width (RBC) [Ratio] 13.9 % Normal 11.5-15.0 [facility] Comment on above: Order Comment: Speci men Type: BLOOD SPECIMENOrdering Facility: [facility] Address: [address] [place] [address] Performed By: #### 5 7021-8 ####[facility]ITALNCLIA [id number] [place] [address] [place] Hematocrit (Bld) [Volume fraction] 37.3 % Low 39.0-51.0 [facility] Comment on above: Order Comment: Speci men Type: BLOOD SPECIMENOrdering Facility: [facility] Address: [address] [place] [address] Performed By: #### 5 7021-8 ####[facility] HOS[facility]ITALNCLI [id number] [place] [address] [place] Hemoglobin (Bld) [Mass/Vol] 12.2 g/dL Low 13.0-17.0 [facility] Comment on above: Order Comment: Speci men Type: BLOOD SPECIMENOrdering Facility: [facility] Address: [address] [place] [address] Performed By: #### 5 7021-8 ####[facility] EFRAINDALLIN [id number] [place] [address] [place] Immature granulocytes (Bld) [#/Vol] 0.05 10*3/uL Normal <0.10 [facility] Comment on above: Order Comment: Speci men Type: BLOOD SPECIMENOrdering Facility: [facility] Address: [address] [place] [address] Performed By: #### 5 7021-8 ####[facility] [id number] [place] [address] [place] Immature granulocytes/100 WBC (Bld) 0.7 % Normal [facility] Comment on above: Order Comment: Speci men Type: BLOOD SPECIMENOrdering Facility: [facility] Address: [address] [place] [address] Performed By: #### 5 7021-8 ####[facility] [id number] [place] [address] [place] Lymphocytes (Bld) [#/Vol] 1.87 10*3/uL Normal 1.00-4.00 [facility] Comment on above: Order Comment: Speci men Type: BLOOD SPECIMENOrdering Facility: [facility] Address: [address] [place] [address] Performed By: #### 5 7021-8 ####[facility] [id number] [place] [address] [place] Lymphocytes/100 WBC (Bld) 25.8 % Normal [facility] Comment on above: Order Comment: Speci men Type: BLOOD SPECIMENOrdering Facility: [facility] Address: [address] [place] [address] Performed By: #### 5 7021-8 ####[facility]ITALNCLIA [id number] [place] [address] [place] MCH (RBC) [Entitic mass] 31.0 pg Normal 26.0-34.0 [facility] Comment on above: Order Comment: Speci men Type: BLOOD SPECIMENOrdering Facility: [facility] Address: [address] [place] [address] Performed By: #### 5 7021-8 ####[facility] [id number] [place] [address] [place] MCHC (RBC) [Mass/Vol] 32.7 g/dL Normal 30.5-36.0 [facility] Comment on above: Order Comment: Speci men Type: BLOOD SPECIMENOrdering Facility: [facility] Address: [address] [place] [address] Performed By: #### 5 7021-8 ####[facility] [id number] [place] [address] [place] MCV (RBC) [Entitic vol] 94.9 fL Normal 80.0-100.0 C [facility] Comment on above: Order Comment: Speci men Type: BLOOD SPECIMENOrdering Facility: [facility] Address: [address] [place] [address] Performed By: #### 5 7021-8 ####[facility] [id number] [place] [address] [place] Monocytes (Bld) [#/Vol] 0.93 10*3/uL High <0.87 [facility] Comment on above: Order Comment: Speci men Type: BLOOD SPECIMENOrdering Facility: [facility] Address: [address] [place] [address] Performed By: #### 5 7021-8 ####[facility] [id number] [place] [address] [place] Monocytes/100 WBC (Bld) 12.8 % Normal [facility] Comment on above: Order Comment: Speci men Type: BLOOD SPECIMENOrdering Facility: [facility] Address: [address] [place] [address] Performed By: #### 5 7021-8 ####[facility] [id number] [place] [address] [place] Neutrophils (Bld) [#/Vol] 3.77 10*3/uL Normal 1.45-7.50 [facility] Comment on above: Order Comment: Speci men Type: BLOOD SPECIMENOrdering Facility: [facility] Address: [address] [place] [address] Performed By: #### 5 7021-8 ####[facility] [id number] [place] [address] [place] Neutrophils/100 WBC (Bld) 52.1 % Normal [facility] Comment on above: Order Comment: Speci men Type: BLOOD SPECIMENOrdering Facility: [facility] Address: [address] [place] [address] Performed By: #### 5 7021-8 ####[facility] [id number] [place] [address] [place] Nucleated RBC (Bld) [#/Vol] 10*3/uL Normal <0.01 [facility] Comment on above: Order Comment: Speci men Type: BLOOD SPECIMENOrdering Facility: [facility] Address: [address] [place] [address] Performed By: #### 5 7021-8 ####[facility] HOSPITALNCA [id number] [place] [address] [place] Nucleated RBC/100 WBC (Bld) [Ratio] 0.0 /100 WBC Normal [facility] Comment on above: Order Comment: Speci men Type: BLOOD SPECIMENOrdering Facility: [facility] Address: [address] [place] [address] Performed By: #### 5 7021-8 ####[facility] NICOLE OMANCJESSYA [id number] [place] [address] [place] Platelet mean volume (Bld) [Entitic vol] 10.2 fL Normal 9.0-12.7 [facility] Comment on above: Order Comment: Speci men Type: BLOOD SPECIMENOrdering Facility: [facility] Address: [address] [place] [address] Performed By: #### 5 7021-8 ####[facility] HOSPITALNCKENNETH [id number] [place] [address] [place] Platelets (Bld) [#/Vol] 246 10*3/uL Normal 150-400 [facility] Comment on above: Order Comment: Speci men Type: BLOOD SPECIMENOrdering Facility: [facility] Address: [address] [place] [address] Performed By: #### 5 7021-8 ####[facility]ITALNCLIA [id number] [place] [address] [place] RBC (Bld) [#/Vol] 3.93 10*6/uL Low 4.20-6.00 [facility] Comment on above: Order Comment: Speci men Type: BLOOD SPECIMENOrdering Facility: [facility] Address: [address] [place] [address] Performed By: #### 5 7021-8 ####[facility]ITALNCLIA [id number] [place] [address] [place] WBC (Bld) [#/Vol] 7.24 10*3/uL Normal 3.70-11.00 [facility] Comment on above: Order Comment: Speci men Type: BLOOD SPECIMENOrdering Facility: [facility] Address: [address] [place] [address] Performed By: #### 5 7021-8 ####[facility] MILLTOWNCLIA [id number] [place] [address] [place] Comprehensive metabolic 2000 panelon 05-08-2024 Albumin [Mass/Vol] 4.0 g/dL Normal 3.9-4.9 [facility] Comment on above: Order Comment: Speci men Type: BLOOD SPECIMENOrdering Facility: [facility] Address: [address] [place] [address] Performed By: #### 2 4323-8 ####[facility] MILLTOWNCLIA [id number] [place] [address] [place] ALP [Catalytic activity/Vol] 122 U/L High 38-113 [facility] Comment on above: Order Comment: Speci men Type: BLOOD SPECIMENOrdering Facility: [facility] Address: [address] [place] [address] Performed By: #### 2 4323-8 ####[facility] MILLTOWNCLIA [id number] [address] [place] ALT [Catalytic activity/Vol] 14 U/L Normal 10-54 [facility] Comment on above: Order Comment: Speci men Type: BLOOD SPECIMENOrdering Facility: [facility] Address: [address] [place] [address] Performed By: #### 2 4323-8 ####[facility] MILLTOWNCLIA [id number] [place] [address] [place] Anion gap [Moles/Vol] 9 mmol/L Normal 8-15 [facility] Comment on above: Order Comment: Speci men Type: BLOOD SPECIMENOrdering Facility: [facility] Address: [address] [place] [address] Performed By: #### 2 4323-8 ####[facility] MILLTOWNCLIA [id number] [place] [address] [place] AST [Catalytic activity/Vol] 19 U/L Normal 14-40 [facility] Comment on above: Order Comment: Speci men Type: BLOOD SPECIMENOrdering Facility: [facility] Address: [address] [place] [address] Performed By: #### 2 4323-8 ####[facility] MILLTOWNCLIA [id number] [place] [address] [place] Bilirubin [Mass/Vol] 0.6 mg/dL Normal 0.2-1.3 [facility] Comment on above: Order Comment: Speci men Type: BLOOD SPECIMENOrdering Facility: [facility] Address: [address] [place] [address] Performed By: #### 2 4323-8 ####[facility]ENTERWNCLIA [id number] [place] [address] [place] Calcium [Mass/Vol] 9.7 mg/dL Normal 8.5-10.2 [facility] Comment on above: Order Comment: Speci men Type: BLOOD SPECIMENOrdering Facility: [facility] Address: [address] [place] [address] Performed By: #### 2 4323-8 ####[facility] MILLWNCLIA [id number] [place] [address] [place] Chloride [Moles/Vol] 106 mmol/L Normal 98-107 [facility] Comment on above: Order Comment: Speci men Type: BLOOD SPECIMENOrdering Facility: [facility] Address: [address] [place] [address] Performed By: #### 2 4323-8 ####[facility] NICOLE MILLTOWNCLIA [id number] [place] [address] [place] CO2 [Moles/Vol] 28 mmol/L Normal 22-30 [facility] Comment on above: Order Comment: Speci men Type: BLOOD SPECIMENOrdering Facility: [facility] Address: [address] [place] [address] Performed By: #### 2 4323-8 ####[facility] EFRAINIBERIANCKENNETH [id number] [place] [address] [place] Creatinine [Mass/Vol] 0.94 mg/dL Normal 0.73-1.22 [facility] Comment on above: Order Comment: Speci men Type: BLOOD SPECIMENOrdering Facility: [facility] Address: [address] [place] [address] Performed By: #### 2 4323-8 ####[facility]ITALNCLIHeaven [id number] [place] [address] [place] Creatinine and Glomerular filtration rate.predicted panel (S/P/Bld) 79 mL/min/1.73m??? Normal >=60 [facility] Comment on above: Order Comment: Speci men Type: BLOOD SPECIMENOrdering Facility: [facility] Address: [address] [place] [address] Result Comment: Tracy mated Glomerular Filtration Rate (eGFR) is calculated using the 2020 CKD-EPI creatinine equation. This equation utilizes serum creatinine, sex, and age as parameters. The creatinine assay has traceable calibration to isotope dilution-mass spectrometry. Refer to KDIGO guidelines for clinical interpretation. In patients with unstable renal function, e.g. those with acute kidney injury, the eGFR may not accurately reflect actual GFR. Performed By: #### 2 4323-8 ####[facility]ITALNCLIA [id number] [place] [address] [place] Glucose [Mass/Vol] 94 mg/dL Normal 74-99 [facility] Comment on above: Order Comment: Speci men Type: BLOOD SPECIMENOrdering Facility: [facility] Address: [address] [place], [place] [id number] Result Comment: The [place] Diabetes Association (ADA) provides guidance for cutoff values for fasting glucose and random glucose. The ADA defines fasting as no caloric intake for at least 8 hours. Fasting plasma glucose results between 100 to 125 mg/dL indicate increased risk for diabetes (prediabetes). Fasting plasma glucose results greater than or equal to 126 mg/dL meet the criteria for diagnosis of diabetes. In the absence of unequivocal hyperglycemia, results should be confirmed by repeat testing. In a patient with classic symptoms of hyperglycemia or hyperglycemic crisis, random plasma glucose results greater than or equal to 200 mg/dL meet the criteria for diagnosis of diabetes. Reference: Standards of Medical Care in Diabetes 2016, [place] Diabetes Association. Diabetes Care. 2016.39(Suppl 1). Performed By: #### 2 4323-8 ####[facility] NICOLE MILLTOWNCLIA [id number] [place] [address] [place] Potassium [Moles/Vol] 4.2 mmol/L Normal 3.7-5.1 [facility] Comment on above: Order Comment: Speci men Type: BLOOD SPECIMENOrdering Facility: [facility] Address: [address] [place] [address] Performed By: #### 2 4323-8 ####[facility] MILLWNCLIA [id number] [place] [address] [place] Protein [Mass/Vol] 6.2 g/dL Low 6.3-8.0 [facility] Comment on above: Order Comment: Speci men Type: BLOOD SPECIMENOrdering Facility: [facility] Address: [address] [place] [address] Performed By: #### 2 4323-8 ####[facility] MILLTOWNCLIA [id number] [place] [address] [place] Sodium [Moles/Vol] 143 mmol/L Normal 136-144 [facility] Comment on above: Order Comment: Speci men Type: BLOOD SPECIMENOrdering Facility: [facility] Address: [address] [place] [address] Performed By: #### 2 4323-8 ####[facility] MILLTOWNCLIA [id number] [place] [address] [place] Urea nitrogen [Mass/Vol] 18 mg/dL Normal 9-24 [facility] Comment on above: Order Comment: Speci men Type: BLOOD SPECIMENOrdering Facility: [facility] Address: [address] [place] [address] Performed By: #### 2 4323-8 ####[facility] NICOLE [facility] [id number] [place] [address] [place] PSA SerPl-ncon 05-08-2024 Prostate specific Ag [Mass/Vol] 18.40 ng/mL High <2.60 [facility] Comment on above: Order Comment: Speci men Type: BLOOD SPECIMENOrdering Facility: [facility] Address: [address] [place] [address] Result Comment: Tota l PSA test methodology used is the Electrochemiluminescence Immunoassay by [employer]. Total PSA values by differing methodologies cannot be interchanged. For an individual patient, the significance of a PSA level should be interpreted in a broad clinical context, including age, race, family history, digital rectal exam, prostate size, results of prior testing (prostate biopsy, free PSA, PCA3), and use of 5-alpha reductase inhibitors. Considering the high incidence of asymptomatic cancer in the general population that may not pose an ultimate risk to a patient, the decision to recommend urological evaluation or prostate biopsy should be individualized after consideration of all these factors. REFERENCE: Joni Hamilton M.D., M.P.H., Hieu Pantoja M.D., Ph.D., Ish Singh M.D., Jeannette Parmar, M.P.H., Gema Cordero Sc.D. Effect of Verification Bias on Screening for Prostate Cancer by Measurement of Prostatic Specific Antigen. N Engl J Med 2003,349:335-42. Performed By: #### 2 857-1 ####[facility] LABORATORYCLIA [id number] [address] [place] MR Shoulder - right WO contr [place] 02-28-2024 IMPRESSION: 1. Numerous small osseous metastases throughout the visualized bones without pathological fracture or extraosseous extension. 2. Rotator cuff tendinosis with low-grade partial-thickness tearing of the infraspinatus tendon. No high-grade rotator cuff tear. 3. Mild subacromial subdeltoid bursitis. 4. 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 [employer] Supplies Sales: CLARITA Transcribe Date/Time: Feb 28 2024 10:06A Dictated by : MAXI ROBERSON MD This examination was interpreted and the report reviewed and electronically signed by: MAXI ROBERSON MD on Feb 28 2024 10:14AM [facility] DIVISION OF RADIOLOGY * * *Final Report* * * DATE OF EXAM: Feb 28 2024 8:00AM [facility] 0240 - MRI SHOULDER WO IVCON RT / PROCEDURE REASON: multiple diagnoses * * * * Physician Interpretation * * * * EXAMINATION: MRI SHOULDER WO IVCON RT HISTORY: Prostate cancer. Pain in joint of right shoulder. Prostate cancer metastatic to bone. TECHNIQUE: Routine non-contrast MRI of the shoulder. MQ: MRS_1A COMPARISON: Pet/CT 08/15/2023 RESULT: TENDONS: Rotator cuff tendons: -Supraspinatus: Bursal surface fraying without high grade tear involving the posterior two thirds of the tendon with background tendinosis -Infraspinatus: Low grade partial thickness (less than 50%) articular surface tear involving the anterior half of the tendon with background tendinosis -Subscapularis: Intact with mild tendinosis -Teres Minor: Intact tendon Biceps (Long head) Tendon: Intact , with normal course MUSCLES: Rotator cuff muscles: -Supraspinatus: Preserved bulk and no fatty changes. -Infraspinatus: Preserved bulk and no fatty changes. -Subscapularis: Preserved bulk and no fatty changes. -Teres Minor: Preserved bulk and no fatty changes. Other muscles: Preserved signal and bulk in the deltoid. JOINTS: Glenohumeral Joint: -Labrum: Degeneration without discrete tear in the superior labrum -Cartilage: Mild cartilage loss/fissuring -Joint Fluid: No effusion . No synovitis. Acromioclavicular Joint: Mild to moderate hypertrophic degenerative changes BONES AND MARROW: Numerous small osseous metastases throughout the visualized bones including the proximal humerus and the scapula, as well as the clavicle and visualized ribs. These T2 bright marrow replacing lesions are not associated with cortical osteolysis, extraosseous extension, or pathological fracture. Majority of the lesions are rounded, with a small elongated subcortical lesion along the humeral neck also noted. OTHER: Subdeltoid/Subacromial Bursa: Mild bursal distention /thickening Other: No other significant findings. Localizer images: No additional findings. DIVISION OF RADIOLOGY Provider, [facility] - 02/28/2024 * * *Final Report* * * DATE OF EXAM: Feb 28 2024 8:00AM [facility] 0240 - MRI SHOULDER WO IVCON RT / PROCEDURE REASON: multiple diagnoses * * * * Physician Interpretation * * * * EXAMINATION: MRI SHOULDER WO IVCON RT HISTORY: Prostate cancer. Pain in joint of right shoulder. Prostate cancer metastatic to bone. TECHNIQUE: Routine non-contrast MRI of the shoulder. MQ: MRS_1A COMPARISON: Pet/CT 08/15/2023 RESULT: TENDONS: Rotator cuff tendons: -Supraspinatus: Bursal surface fraying without high grade tear involving the posterior two thirds of the tendon with background tendinosis -Infraspinatus: Low grade partial thickness (less than 50%) articular surface tear involving the anterior half of the tendon with background tendinosis -Subscapularis: Intact with mild tendinosis -Teres Minor: Intact tendon Biceps (Long head) Tendon: Intact , with normal course MUSCLES: Rotator cuff muscles: -Supraspinatus: Preserved bulk and no fatty changes. -Infraspinatus: Preserved bulk and no fatty changes. -Subscapularis: Preserved bulk and no fatty changes. -Teres Minor: Preserved bulk and no fatty changes. Other muscles: Preserved signal and bulk in the deltoid. JOINTS: Glenohumeral Joint: -Labrum: Degeneration without discrete tear in the superior labrum -Cartilage: Mild cartilage loss/fissuring -Joint Fluid: No effusion . No synovitis. Acromioclavicular Joint: Mild to moderate hypertrophic degenerative changes BONES AND MARROW: Numerous small osseous metastases throughout the visualized bones including the proximal humerus and the scapula, as well as the clavicle and visualized ribs. These T2 bright marrow replacing lesions are not associated with cortical osteolysis, extraosseous extension, or pathological fracture. Majority of the lesions are rounded, with a small elongated subcortical lesion along the humeral neck also noted. OTHER: Subdeltoid/Subacromial Bursa: Mild bursal distention /thickening Other: No other significant findings. Localizer images: No additional findings. IMPRESSION IMPRESSION: 1. Numerous small osseous metastases throughout the visualized bones without pathological fracture or extraosseous extension. 2. Rotator cuff tendinosis with low-grade partial-thickness tearing of the infraspinatus tendon. No high-grade rotator cuff tear. 3. Mild subacromial subdeltoid bursitis. 4. 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 Engineering Supplies Sales: PSCB Transcribe Date/Time: Feb 28 2024 10:06A Dictated by : MAXI ROBERSON MD This examination was interpreted and the report reviewed and electronically signed by: MAXI ROBERSON MD on Feb 28 2024 10:14AM EST [facility] Rad[facility] Shoulder - right WO contr astOrdered By: [facility] Provider on 02-28-2024 [facility] MRI SHOULDER WO IVCON RTon 1 04-30-2023 MRI SHOULDER WO IVCON RT * * *Final Report* * * DATE OF EXAM: Feb 28 2024 8:00AM [facility] 0240 - MRI SHOULDER WO IVCON RT / PROCEDURE REASON: multiple diagnoses * * * * Physician Interpretation * * * * EXAMINATION: MRI SHOULDER WO IVCON RT HISTORY: Prostate cancer. Pain in joint of right shoulder. Prostate cancer metastatic to bone. TECHNIQUE: Routine non-contrast MRI of the shoulder. MQ: MRS_1A COMPARISON: Pet/CT 08/15/2023 RESULT: TENDONS: Rotator cuff tendons: -Supraspinatus: Bursal surface fraying without high grade tear involving the posterior two thirds of the tendon with background tendinosis -Infraspinatus: Low grade partial thickness (less than 50%) articular surface tear involving the anterior half of the tendon with background tendinosis -Subscapularis: Intact with mild tendinosis -Teres Minor: Intact tendon Biceps (Long head) Tendon: Intact , with normal course MUSCLES: Rotator cuff muscles: -Supraspinatus: Preserved bulk and no fatty changes. -Infraspinatus: Preserved bulk and no fatty changes. -Subscapularis: Preserved bulk and no fatty changes. -Teres Minor: Preserved bulk and no fatty changes. Other muscles: Preserved signal and bulk in the deltoid. JOINTS: Glenohumeral Joint: -Labrum: Degeneration without discrete tear in the superior labrum -Cartilage: Mild cartilage loss/fissuring -Joint Fluid: No effusion . No synovitis. Acromioclavicular Joint: Mild to moderate hypertrophic degenerative changes BONES AND MARROW: Numerous small osseous metastases throughout the visualized bones including the proximal humerus and the scapula, as well as the clavicle and visualized ribs. These T2 bright marrow replacing lesions are not associated with cortical osteolysis, extraosseous extension, or pathological fracture. Majority of the lesions are rounded, with a small elongated subcortical lesion along the humeral neck also noted. OTHER: Subdeltoid/Subacromial Bursa: Mild bursal distention /thickening Other: No other significant findings. Localizer images: No additional findings. IMPRESSION: 1. Numerous small osseous metastases throughout the visualized bones without pathological fracture or extraosseous extension. 2. Rotator cuff tendinosis with low-grade partial-thickness tearing of the infraspinatus tendon. No high-grade rotator cuff tear. 3. Mild subacromial subdeltoid bursitis. 4. 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 Engineering Supplies Sales: CL[employer]ITA Transcribe Date/Time: Feb 28 2024 10:06A Dictated by : MAXI ROBERSON MD This examination was interpreted and the report reviewed and electronically signed by: MAXI ROBERSON MD on Feb 28 2024 10:14AM EST [id number] Normal [facility] Ivet 02-17-2024 CNPN Telephone (HEMAWS) EVERTON PARDO ([id number]) 1935 M Date Time Provider Department 02/17/24 JAZMYN ELLISON During your visit today, we recorded the following information about you: Jazmyn Ellison 02/17/2024 2:42 PM Signed Called patient to discuss imaging. Pt is agreeable to MRI shoulder to eval pain. PSR: can you please schedule MRI shoulder? Orders signed from appt on 02/16/24 Thank you! Ashlyn Gonslaves 02/17/2024 3:19 PM Signed Spoke wit patient's and scheduled. Ashlyn Gonzales Allergies As of Date: 02/17/2024 Noted Allergy Reaction ZETIA (EZETIMIBE) 04/07/2023 14 - Other: See Comments Comments: Joint pain GABAPENTIN 02/25/2015 12 - Shortness of Breath 14 - Other: See Comments Comments: dizziness MOBIC (MELOXICAM) 06/28/2006 8 - GI Upset SULFA (SULFONAMIDE ANTIBIOTICS) 11/29/2005 Comments: unkown Date Reviewed: 02/17/2024 Reviewed by: Jazmyn Ellison - Fully Assessed Prescriptions as of 02/17/2024 - finasteride (PROSCAR) 5 mg tablet Take 1 tablet by mouth once daily. - tamsulosin (FLOMAX) 0.4 mg Take 1 capsule by mouth daily at bedtime. - atorvastatin (LIPITOR) 40 mg tablet Take 1 tablet by mouth daily at bedtime. For cholesterol. - multivitamin/iron/folic acid (CENTRUM COMPLETE ORAL) Take 1 tablet by mouth once daily. - albuterol HFA (PROVENTIL HFA, VENTOLIN HFA) 90 mcg/actuation inhaler Inhale 2 Puffs as instructed every 6 hours as needed for wheezing/shortness of breath. - folic acid/multivit-min/lutein (CENTRUM SILVER ORAL) Take 1 tablet by mouth as needed. - loratadine (CLARITIN) 10 mg tablet Take 1 tablet by mouth once daily. - clopidogrel (PLAVIX) 75 mg tablet Take 1 tablet by mouth once daily. - famotidine (PEPCID) 20 mg tablet Take 1 tablet by mouth every afternoon. - amLODIPine (NORVASC) 2.5 mg tablet Take 1 tablet by mouth once daily. - metoprolol succinate ER (TOPROL XL) 25 mg 24 hr tablet Take 12.5 mg by mouth daily at bedtime. - nitroglycerin sublingual (NITROQUICK) 0.4 mg SL tablet dissolve 1 tablet under the tongue every 5 minutes if needed for ... (REFER TO PRESCRIPTION NOTES). - aspirin, enteric coated (ASPIRIN, ENTERIC COATED) 81 mg EC tablet Take 81 mg by mouth once daily. - acetaminophen (TYLENOL EXTRA STRENGTH ORAL) Take 1 tablet by mouth as needed. - ketoconazole (NIZORAL) 2 % shampoo WASH FACE AND EARS - AND LET SIT FOR 5 MINUTES as directed ALTERN... (REFER TO PRESCRIPTION NOTES). - fluticasone 50 mcg/actuation nasal spray Use 2 Sprays in each nostril once daily as needed for Cold/Allergy Symptoms. Rinse mouth after use. - VIT C/DL-E AC/LUT/COPPER/ZNOX (PRESERVISION ORAL) Take 1 tablet by mouth two times a day. - Sodium Chloride (OCEAN NASAL) 0.65 % NASAL [place] Use 1 [place] in the nose as needed. 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/19/2007 Gout, Unspecified [M10.9] 09/03/2008 Chronic back pain [M54.50] 09/03/2008 01/08/2015 Actinic Keratosis (Premalignant AK) [L57.0] 09/11/2009 History of Malignant Neoplasm of Skin: BCC AND S*09/11/2009 01/14/2012 Surgical Scar and Fibrosis of Skin [L90.5] 09/11/2009 01/14/2012 Actinic Damage///Sun-Damaged Skin [L57.8] 09/11/2009 01/14/2012 Solar lentigo [L81.4] 09/11/2009 01/16/2012 Allergic Rhinitis [J30.9] 09/18/2009 Sleep apnea, obstructive [G47.33] 07/19/2007 12/29/2017 Periodic limb movement disorder (PLMD) [G47.61] 07/19/2007 12/29/2017 Hematuria [R31.9] 02/02/2012 01/07/2014 Urgency of urination [R39.15] 02/02/2012 12/29/2017 Frequency of urination [R35.0] 02/02/2012 12/29/2017 Dribbling [N39.43] 02/02/2012 03/02/2017 Pulmonary nodules/lesions, multiple [R91.8] 02/08/2012 01/05/2013 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] 01/02/2013 12/29/2017 Chronic prostatitis [N41.1] 01/02/2013 12/29/2017 Medication intolerance [Z78.9] 09/11/2013 01/17/2020 Hearing loss of both ears [H91.93] 01/07/2014 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, G47*01/07/2014 01/08/2015 Hyperlipidemia [E78.5] 01/07/2014 Vitamin D deficiency [E55.9] 01/15/2014 01/08/2015 DDD (degenerative disc disease), lumbar [M51.36*04/01/2014 Lumbar spondylosis [M47.816] 04/01/2014 01/08/2015 Lumbar radiculopathy [M54.16] 04/01/2014 12/29/2017 GERD (gastroesophageal reflux disease) [K21.9] 07/09/2014 Occult GI bleeding [R19.5] 09/11/2015 03/02/2017 Right shoulder pain [M25.511] 08/03/2017 12/29/2017 Disorder of scapula [M89.9] 08/03/2017 12/29/2017 Sleep apnea, obstructive [G47.33] 07/19/2007 Abnormal lung sounds [R09.89] 12/14/2018 Essential hypertension [I10] 10/08/2019 Impaired fasting blood sugar [R73.01] 01/19/2021 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 Normal [facility] CNOVSPon 02-16-2024 CNOVSP Visit (SP) Office (H EMAWS) EVERTON PARDO ([id number]) 1935 M Date Time Provider Department 02/16/24 10:00 AM JAZMYN ELLISON During your visit today, we recorded the following information about you: Temperature Pulse Blood pressure Weight 96.9 degrees 50/minute 96/60 74.4 kg Height 1.69 m Jazmyn Ellison 02/17/2024 12:05 PM Signed Everton Pardo 1935 02/16/2024 HISTORY OF PRESENT ILLNESS: Everton Pardo is a 87 year old male referred by Dr Ocampo re PSA 5000, bone lesions. Saw Dr Juarez,Casodex written he took last dose of Rx 2 days ago. Had a bone biopsy 08-30-23. Showed metastatic prostate cancer. Here for follow up and first lupron injection. Feels ok, no pain, just tired. Discussed [place] den[place], general treatment approach to prostate cancer, treatment goals. Here for follow up, doing well. PSA down We have clearance for zometa Interval Hx: Mr. Pardo presents today with his spouse for follow up, Lupron and zometa. He reports feeling well overall. Denies fevers, chills or NS. Occasional hot flashes are tolerable. Denies new issues. Shoulder pain is bothersome. Has been ongoing but seems to be getting worse. Exacerbated by any activities. No SOB, CP, or palpitations. No CAR, dizziness, or changes in vision. Denies N/V/C/D. Occasional constipation managed with prune juice. No changes in bowel or bladder habits. No rash or skin changes. Denies bleeding or bruising. No edema. 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 Mccormack, immunotherapy. 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 Diverticulosis of colon 06/28/2001 Tortuous colon ELEVATED PROSTATE SPECIFIC ANTIGEN 10/19/2007 PSA 3.8 in 9-06, 4.7 in 4-08, 4.3 in 7-09: Malgieri rec routine follow up Environmental allergies Essential hypertension 10/08/2019 Gastritis 08/13/1999 GENERAL OSTEOARTHROSIS 11/29/2005 GOUT NOS 09/03/2008 Uric acid 5.8 in 6-09, 7.9 in 8-09 (during acute attack) Hearing loss of both ears 01/07/2014 Hypertrophy of prostate with urinary obstruction and other lower urinary tract symptoms (LUTS) 10/19/2007 Lumbago 09/03/2008 MRI 10-99: small central herniation at L4-5, mild DDD L4-5 and L5-S1 Rec Tylenol and PT in 08-20: need to review old MRI and consider spinal stenosis Reviewed the importance of weight loss as of 08-20 Nonrheumatic aortic valve stenosis 08/13/2022 Periodic limb movement disorder (PLMD) 07/19/2007 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 I'm not using it anymore. Snoring PAST SURGICAL HISTORY Procedure Laterality Date APPENDECTOMY 1945 CC CORONARY STENT 09/20/2022 PCI D1; RUPESH pLAD, OM1, and rPDA COLONOSCOPY 08/21/2018 COLONOSCOPY FLX DX W/COLLJ SPEC WHEN PFRMD 06/28/2001 Colonoscopy ESOPHAGOGASTRODUODENOSCOPY TRANSORAL DIAGNOSTIC 08/02/2001 EGD ESOPHAGOGASTRODUODENOSCOPY TRANSORAL DIAGNOSTIC 12/15/2015 EGD LEFT HEART CATH,PERCUTANEOUS 09/13/2022 PAST SURGICAL HISTORY OF 2010 cysts, skin lesions, basal cell cancer PROSTATE BIOPSY 08/2012 FAMILY HISTORY Problem Relation Age of Onset Cancer Mother Pt states does not remember type Heart Father [place] age 60s GI Sister gastrectomy Cancer Sister stomach cancer other (fibromyalgia) Sister Prostate Cancer Brother No Known Problems Other Lung disease Social History Tobacco Use Smoking status: Never Smokeless tobacco: Never Tobacco comments: No smoking in childhood home. Vaping Use Vaping status: Never Used Substance Use Topics Alcohol use: No Drug use: No ALLERGIES: ALLERGIES Allergen Reactions Zetia [Ezetimibe] Other: See Comments Joint pain Gabapentin Shortness of Breath, Other: See Comments dizziness Mobic [Meloxicam] GI Upset Sulfa (Sulfonamide * unkown CURRENT OUTPATIENT MEDICATIONS: finasteride (PROSCAR) 5 mg tablet Take 1 tablet by mouth once daily. tamsulosin (FLOMAX) 0.4 mg Take 1 capsule by mouth daily at bedtime. atorvastatin (LIPITOR) 40 mg tablet Take 1 tablet by mouth daily at bedtime. For cholesterol. multivitamin/iron/folic acid (CENTRUM COMPLETE ORAL) Take 1 tablet by mouth once daily. albuterol HFA (PROVENTIL HFA, VENTOLIN HFA) 90 mcg/actuation inhaler Inhale 2 Puffs as instructed every 6 hours as needed for wheezing/shortness of breath. loratadine (CLARITIN) 10 mg tablet Take 1 tablet by mouth once daily. (Patient taking differently: Take 10 mg by mouth as needed.) clopidog (more content not included)... Normal [facility] CBC W Auto Differential pane l (Bld)on 02-14-2024 Basophils (Bld) [#/Vol] 0.06 10*3/uL Normal <0.11 [facility] Comment on above: Order Comment: Speci men Type: BLOOD SPECIMENOrdering Facility: [facility] Address: [address] [place] [address] Performed By: #### 5 7021-8 ####[facility] [id number] [place] [address] [place] Basophils/100 WBC (Bld) 0.8 % Normal C [facility] [place] Comment on above: Order Comment: Speci men Type: BLOOD SPECIMENOrdering Facility: [facility] Address: [address] [place] [address] Performed By: #### 5 7021-8 ####[facility] [id number] [place] [address] [place] Differential cell count method Nom (Bld) Auto Normal [facility] Comment on above: Order Comment: Speci men Type: BLOOD SPECIMENOrdering Facility: [facility] Address: [address] [place] [address] Performed By: #### 5 7021-8 ####[facility] MILLWNCLIA [id number] [place] [address] [place] Eosinophils (Bld) [#/Vol] 0.27 10*3/uL Normal <0.46 [facility] Comment on above: Order Comment: Speci men Type: BLOOD SPECIMENOrdering Facility: [facility] Address: [address] [place] [address] Performed By: #### 5 7021-8 ####[facility] HOSPITALROBBYLIA [id number] [place] [address] [place] Eosinophils/100 WBC (Bld) 3.7 % Normal [facility] Comment on above: Order Comment: Speci men Type: BLOOD SPECIMENOrdering Facility: [facility] Address: [address] [place] [address] Performed By: #### 5 7021-8 ####[facility] HOSPITALLIA [id number] [place] [address] [place] Erythrocyte distribution width (RBC) [Ratio] 13.2 % Normal 11.5-15.0 [facility] Comment on above: Order Comment: Speci men Type: BLOOD SPECIMENOrdering Facility: [facility] Address: [address] [place] [address] Performed By: #### 5 7021-8 ####[facility] CENTERWNCLIA [id number] [address] [place] Hematocrit (Bld) [Volume fraction] 39.8 % Normal 39.0-51.0 [facility] Comment on above: Order Comment: Speci men Type: BLOOD SPECIMENOrdering Facility: [facility] Address: [address] [place] [address] Performed By: #### 5 7021-8 ####[facility] HOSPITALNCLIA [id number] [place] [address] [place] Hemoglobin (Bld) [Mass/Vol] 13.0 g/dL Normal 13.0-17.0 [facility] Comment on above: Order Comment: Speci men Type: BLOOD SPECIMENOrdering Facility: [facility] Address: [address] [place] [address] Performed By: #### 5 7021-8 ####[facility] HOSPITALNCA [id number] [place] [address] [place] Immature granulocytes (Bld) [#/Vol] 0.03 10*3/uL Normal <0.10 [facility] Comment on above: Order Comment: Speci men Type: BLOOD SPECIMENOrdering Facility: [facility] Address: [address] [place] [address] Performed By: #### 5 7021-8 ####[facility]ITALA [id number] [address] [place] Immature granulocytes/100 WBC (Bld) 0.4 % Normal [facility] Comment on above: Order Comment: Speci men Type: BLOOD SPECIMENOrdering Facility: [facility] Address: [address] [place] [address] Performed By: #### 5 7021-8 ####[facility] [id number] [place] [address] [place] Lymphocytes (Bld) [#/Vol] 2.11 10*3/uL Normal 1.00-4.00 [facility] Comment on above: Order Comment: Speci men Type: BLOOD SPECIMENOrdering Facility: [facility] Address: [address] [place] [address] Performed By: #### 5 7021-8 ####[facility] HOSPITALNCLIA [id number] [place] [address] [place] Lymphocytes/100 WBC (Bld) 29.1 % Normal [facility] Comment on above: Order Comment: Speci men Type: BLOOD SPECIMENOrdering Facility: [facility] Address: [address] [place] [address] Performed By: #### 5 7021-8 ####[facility] EFRAINIBERIALEYLA [id number] [place] [address] [place] MCH (RBC) [Entitic mass] 31.8 pg Normal 26.0-34.0 [facility] Comment on above: Order Comment: Speci men Type: BLOOD SPECIMENOrdering Facility: [facility] Address: [address] [place] [address] Performed By: #### 5 7021-8 ####[facility] HOSPITALNCJORDAN [facility] [id number] [place] [address] [place] MCHC (RBC) [Mass/Vol] 32.7 g/dL Normal 30.5-36.0 [facility] Comment on above: Order Comment: Speci men Type: BLOOD SPECIMENOrdering Facility: [facility] Address: [address] [place] [address] Performed By: #### 5 7021-8 ####[facility] [id number] [place] [address] [place] MCV (RBC) [Entitic vol] 97.3 fL Normal 80.0-100.0 C [facility] [place] Comment on above: Order Comment: Speci men Type: BLOOD SPECIMENOrdering Facility: [facility] Address: [address] [place] [address] Performed By: #### 5 7021-8 ####[facility] [id number] [place] [address] [place] Monocytes (Bld) [#/Vol] 0.74 10*3/uL Normal <0.87 [facility] Comment on above: Order Comment: Speci men Type: BLOOD SPECIMENOrdering Facility: [facility] Address: [address] [place] [address] Performed By: #### 5 7021-8 ####[facility] MILLWNCLIA [id number] [place] [address] [place] Monocytes/100 WBC (Bld) 10.2 % Normal [facility] Comment on above: Order Comment: Speci men Type: BLOOD SPECIMENOrdering Facility: [facility] Address: [address] [place] [address] Performed By: #### 5 7021-8 ####[facility] HOSPITALNCLIA [id number] [place] [address] [place] Neutrophils (Bld) [#/Vol] 4.05 10*3/uL Normal 1.45-7.50 [facility] Comment on above: Order Comment: Speci men Type: BLOOD SPECIMENOrdering Facility: [facility] Address: [address] [place] [address] Performed By: #### 5 7021-8 ####[facility] HOSPITALLIA [id number] [place] [address] [place] Neutrophils/100 WBC (Bld) 55.8 % Normal [facility] Comment on above: Order Comment: Speci men Type: BLOOD SPECIMENOrdering Facility: [facility] Address: [address] [place] [address] Performed By: #### 5 7021-8 ####[facility] HOSPITALNCLIA [id number] [place] [address] [place] Nucleated RBC (Bld) [#/Vol] 10*3/uL Normal <0.01 [facility] Comment on above: Order Comment: Speci men Type: BLOOD SPECIMENOrdering Facility: [facility] Address: [address] [place] [address] Performed By: #### 5 7021-8 ####[facility] HOS[facility]ITALNCLIA [id number] [place] [address] [place] Nucleated RBC/100 WBC (Bld) [Ratio] 0.0 /100 WBC Normal [facility] Comment on above: Order Comment: Speci men Type: BLOOD SPECIMENOrdering Facility: [facility] Address: [address] [place] [address] Performed By: #### 5 7021-8 ####[facility] HOSPITALNCJESSYA [id number] [place] [address] [place] Platelet mean volume (Bld) [Entitic vol] 10.1 fL Normal 9.0-12.7 [facility] Comment on above: Order Comment: Speci men Type: BLOOD SPECIMENOrdering Facility: [facility] Address: [address] [place] [address] Performed By: #### 5 7021-8 ####[facility] HOSPITALNCA [id number] [place] [address] [place] Platelets (Bld) [#/Vol] 208 10*3/uL Normal 150-400 [facility] Comment on above: Order Comment: Speci men Type: BLOOD SPECIMENOrdering Facility: [facility] Address: [address] [place] [address] Performed By: #### 5 7021-8 ####[facility] HOSPITALNCLIA [id number] [place] [address] [place] RBC (Bld) [#/Vol] 4.09 10*6/uL Low 4.20-6.00 [facility] Comment on above: Order Comment: Speci men Type: BLOOD SPECIMENOrdering Facility: [facility] Address: [address] [place] [address] Performed By: #### 5 7021-8 ####[facility] HOSPITALNCLIA [id number] [place] [address] [place] WBC (Bld) [#/Vol] 7.26 10*3/uL Normal 3.70-11.00 [facility] Comment on above: Order Comment: Speci men Type: BLOOD SPECIMENOrdering Facility: [facility] Address: [address] [place] [address] Performed By: #### 5 7021-8 ####[facility] HOSPITALNCJORD[facility] [id number] [place] [address] [place] Comprehensive metabolic 2000 panelon 02-14-2024 Albumin [Mass/Vol] 4.1 g/dL Normal 3.9-4.9 [facility] Comment on above: Order Comment: Speci men Type: BLOOD SPECIMENOrdering Facility: [facility] Address: [address] [place] [address] Performed By: #### 2 4323-8 ####[facility] HOSPITALNCJORD[facility] [id number] [place] [address] [place] ALP [Catalytic activity/Vol] 226 U/L High 38-113 [facility] Comment on above: Order Comment: Speci men Type: BLOOD SPECIMENOrdering Facility: [facility] Address: [address] [place] [address] Performed By: #### 2 4323-8 ####[facility] [id number] [place] [address] [place] ALT [Catalytic activity/Vol] 51 U/L Normal 10-54 [facility] Comment on above: Order Comment: Speci men Type: BLOOD SPECIMENOrdering Facility: [facility] Address: [address] [place] [address] Performed By: #### 2 4323-8 ####[facility] [id number] [place] [address] [place] Anion gap [Moles/Vol] 9 mmol/L Normal 8-15 [facility] Comment on above: Order Comment: Speci men Type: BLOOD SPECIMENOrdering Facility: [facility] Address: [address] [place] [address] Performed By: #### 2 4323-8 ####[facility] NICOLE MILLTOWNCLIA [id number] [place] [address] [place] AST [Catalytic activity/Vol] 52 U/L High 14-40 [facility] Comment on above: Order Comment: Speci men Type: BLOOD SPECIMENOrdering Facility: [facility] Address: [address] [place] [address] Performed By: #### 2 4323-8 ####[facility] HOSPITALLIA [id number] [place] [address] [place] Bilirubin [Mass/Vol] 0.5 mg/dL Normal 0.2-1.3 [facility] Comment on above: Order Comment: Speci men Type: BLOOD SPECIMENOrdering Facility: [facility] Address: [address] [place] [address] Performed By: #### 2 4323-8 ####[facility] HOSPITALLIA [id number] [place] [address] [place] Calcium [Mass/Vol] 10.0 mg/dL Normal 8.5-10.2 [facility] Comment on above: Order Comment: Speci men Type: BLOOD SPECIMENOrdering Facility: [facility] Address: [address] [place] [address] Performed By: #### 2 4323-8 ####[facility] MILLWNCLIA [id number] [place] [address] [place] Chloride [Moles/Vol] 106 mmol/L Normal 98-107 [facility] Comment on above: Order Comment: Speci men Type: BLOOD SPECIMENOrdering Facility: [facility] Address: [address] [place] [address] Performed By: #### 2 4323-8 ####[facility] MILLWNCLIA [id number] [place] [address] [place] CO2 [Moles/Vol] 27 mmol/L Normal 22-30 [facility] Comment on above: Order Comment: Speci men Type: BLOOD SPECIMENOrdering Facility: [facility] Address: [address] [place] [address] Performed By: #### 2 4323-8 ####[facility] HOSPITALNCJORD[facility] [id number] [place] [address] [place] Creatinine [Mass/Vol] 1.02 mg/dL Normal 0.73-1.22 [facility] Comment on above: Order Comment: Speci men Type: BLOOD SPECIMENOrdering Facility: [facility] Address: [address] [place] [address] Performed By: #### 2 4323-8 ####[facility] HOSPITALNCLIA [id number] [place] [address] [place] Creatinine and Glomerular filtration rate.predicted panel (S/P/Bld) 72 mL/min/1.73m??? Normal >=60 [facility] Comment on above: Order Comment: Speci men Type: BLOOD SPECIMENOrdering Facility: [facility] Address: [address] [place] [address] Result Comment: Tracy mated Glomerular Filtration Rate (eGFR) is calculated using the 2020 CKD-EPI creatinine equation. This equation utilizes serum creatinine, sex, and age as parameters. The creatinine assay has traceable calibration to isotope dilution-mass spectrometry. Refer to KDIGO guidelines for clinical interpretation. In patients with unstable renal function, e.g. those with acute kidney injury, the eGFR may not accurately reflect actual GFR. Performed By: #### 2 4323-8 ####[facility] HOSPITALNCLIA [id number] [place] [address] [place] Glucose [Mass/Vol] 130 mg/dL High 74-99 [facility] Comment on above: Order Comment: Speci men Type: BLOOD SPECIMENOrdering Facility: [facility] Address: [address] [id number] Result Comment: The [place] [employer] (ADA) provides guidance for cutoff values for fasting glucose and random glucose. The ADA defines fasting as no caloric intake for at least 8 hours. Fasting plasma glucose results between 100 to 125 mg/dL indicate increased risk for diabetes (prediabetes). Fasting plasma glucose results greater than or equal to 126 mg/dL meet the criteria for diagnosis of diabetes. In the absence of unequivocal hyperglycemia, results should be confirmed by repeat testing. In a patient with classic symptoms of hyperglycemia or hyperglycemic crisis, random plasma glucose results greater than or equal to 200 mg/dL meet the criteria for diagnosis of diabetes. Reference: Standards of Medical Care in Diabetes 2016, [place] [employer]. Diabetes Care. 2016.39(Suppl 1). Performed By: #### 2 4323-8 ####[facility] [id number] [place] [address] [place] Potassium [Moles/Vol] 4.0 mmol/L Normal 3.7-5.1 [facility] Comment on above: Order Comment: Speci men Type: BLOOD SPECIMENOrdering Facility: [facility] Address: [address] [id number] Performed By: #### 2 4323-8 ####[facility] [id number] [place] [address] [place] Protein [Mass/Vol] 6.2 g/dL Low 6.3-8.0 [facility] Comment on above: Order Comment: Speci men Type: BLOOD SPECIMENOrdering Facility: [facility] Address: [address] [id number] Performed By: #### 2 4323-8 ####[facility] [id number] [place] [address] [place] Sodium [Moles/Vol] 142 mmol/L Normal 136-144 [facility] Comment on above: Order Comment: Speci men Type: BLOOD SPECIMENOrdering Facility: [facility] Address: [address] [place], [place] [address] Performed By: #### 2 4323-8 ####[facility] NICOLE HILTONLIA [id number] [place] [address] [place] Urea nitrogen [Mass/Vol] 22 mg/dL Normal 9-24 [facility] Comment on above: Order Comment: Speci men Type: BLOOD SPECIMENOrdering Facility: [facility] Address: [address] [place] [address] Performed By: #### 2 4323-8 ####[facility] LIDALIA [id number] [place] [address] [place] [facility] Prostate specific Ag [Mass/Vol] 20.13 ng/mL High <2.60 [facility] Comment on above: Order Comment: Speci men Type: BLOOD SPECIMENOrdering Facility: [facility] Address: [address] [place] [address] Result Comment: Tota l PSA test methodology used is the Electrochemiluminescence Immunoassay by [employer]. Total PSA values by differing methodologies cannot be interchanged. For an individual patient, the significance of a PSA level should be interpreted in a broad clinical context, including age, race, family history, digital rectal exam, prostate size, results of prior testing (prostate biopsy, free PSA, PCA3), and use of 5-alpha reductase inhibitors. Considering the high incidence of asymptomatic cancer in the general population that may not pose an ultimate risk to a patient, the decision to recommend urological evaluation or prostate biopsy should be individualized after consideration of all these factors. REFERENCE: Joni Hamilton M.D., M.P.H., Hieu Pantoja M.D., Ph.D., Ish Singh M.D., Jeannette Parmar, M.P.H., Gema Cordero Sc.D. Effect of Verification Bias on Screening for Prostate Cancer by Measurement of Prostatic Specific Antigen. N Engl J Med 2003,349:335-42. Performed By: #### 2 857-1 ####[facility] LABCLWILY [id number] [place] [address] [address] [place] Cardiology Visit Reporton Cardiology Visit Report [facility] [address] [place] [address] OFFICE VISIT Date of Service: 01/31/24 MR#: [id number] Acct: [id number] Name: EVERTON PARDO Rep #: [id number] : 1935 Provider: RALPH tay Age/Sex: 88/M Location: [facility] Status: Signed HPI HPI History of Present Illness Details: Everton Pardo is an 88-year-old gentleman who presents to the office today for a cardiovascular follow up visit. He recently established with us for concerns over hypertension and aortic stenosis. He had been having chest discomfort a few weeks prior to him establishing with us. This was with stress and relieved by rest. It did radiate into his left arm. He did undergo an echocardiogram which demonstrated preserved ejection fraction of 54% ???5 and aortic valve area of 1.1 cm??? with a peak gradient of 29 mmHg and a mean gradient of 11 mmHg. Symptoms were significantly concerning for angina he did undergo a diagnostic heart catheterization which demonstrated triple-vessel disease with calcified LAD lesion, circumflex lesion and distal RCA lesion with a preserved ejection fraction. [facility] was [email or web address] for evaluation of high risk PCI versus coronary artery bypass surgery. Patient at [facility] underwent a heart catheterization on 09/13/2022 which had demonstrated a proximal 95% stenosis of his LAD, proximal 90% stenosis of the small caliber D1, proximal 90% stenosis of the proximal OM1, 90% stenosis of the right posterior lateral. He did undergo an IVUS guided PCI of the proximal LAD with a drug-eluting stent stent that was overlapped, PCI to the OM1 with IVUS guidance, PCI of the posterior lateral branch and balloon angioplasty to the diagonal. It was recommended that he be on dual antiplatelet for at least 6 months longer if tolerates and aspirin indefinitely. He states that he was diagnosed with prostate cancer, and is following with [facility] for this. From a cardiac standpoint, the patient is doing well. He denies any palpitations, chest pain, pressure or heaviness. He denies SOB, Orthopnea, and PND. He does not have bleeding issues; no blood in urine, stool or nosebleeds. He denies any decrease in energy level, myalgias, or claudication. He does not have edema, or sudden weight gain. He does have occasional lightheadedness with positional changes. He denies dizziness, syncopal or near syncopal episodes, and headaches. Intake Vital Signs 08/09/23 08:58 01/31/24 10:02 Height 5 ft 7 in 5 ft 7 in Weight: 6 lb BMI 0.9 BP 103/63 Blood Pressure Location Lt brachial Position Sitting Respiration 18 Pulse 51 L Pulse Source Monitor Pulse Oximetry (%) 99 Intake Visit Reasons: 6 M FU Ict Trainer Required: No Is patient in pain?: No Allergies meloxicam (From Mobic) Allergy (Verified 01/31/24 10:08) Unknown Sulfa (Sulfonamide Antibiotics) Allergy (Verified 01/31/24 10:08) Unknown ezetimibe (From Zetia) Adverse Reaction (Intermediate, Verified 01/31/24 10:08) Joint pain and myalgias, muscle weakness gabapentin Adverse Reaction (Unknown, Verified 01/31/24 10:08) Shortness of breath Medications ???Medication ???Instructions ???Recorded ???Confirmed ???Type acetaminophen 500 mg tablet 500 - 1,000 mg PO Q6H PRN PRN Pain 08/18/18 01/31/24 History amlodipine 2.5 mg tablet 2.5 mg PO DAILY 08/18/18 01/31/24 History finasteride 5 mg tablet 5 mg PO DAILY 08/18/18 01/31/24 History fluticasone propionate 50 1 spray BID PRN ALLERGY SX 08/18/18 01/31/24 History mcg/actuation nasal spray,suspension nbsfpudm-ekn-yymdh acid 0.4 1 ea PO DAILY 08/18/18 01/31/24 History mg-lycopene 300 mcg-lutein 250 mcg tablet (Centrum Silver) vit C 250 mg-vit E 90 mg-zinc 40 1 ea PO BID 08/18/18 01/31/24 History mg-copper 1 wd-pcqnyg-poyaqx capsule (PreserVision AREDS-2) aspirin 81 mg tablet,delayed 81 mg PO DAILY 10/22/22 01/31/24 History release (Adult Low Dose Aspirin) famotidine 20 mg tablet (Pepcid) 20 mg PO DAILY #30 tabs 02/09/23 01/31/24 Rx clopidogrel 75 mg tablet (Plavix) 75 mg PO .COMPLEX #90 tabs 03/30/23 01/31/24 Rx oxycodone-acetaminophen 5 mg-325 1 tab PO Q6H PRN pain 5 days #20 07/22/23 01/31/24 Rx mg tablet (Percocet) tabs atorvastatin 40 mg tablet 40 mg PO QHS #90 tabs 11/07/23 01/31/24 Rx metoprolol succinate 25 mg 12.5 mg (1/2 x 25 mg) PO QDAY #45 12/05/23 01/31/24 Rx tablet,extended release 24 hr tabs tamsulosin 0.4 mg capsule 0.4 mg PO QDAY 01/31/24 01/31/24 History Have you fallen in the past year?: Yes [facility] Medical History Bruit of left carotid artery Dyspnea on exertion Nonrheumatic aortic (valve) stenosis Mixed hyperlipidemia Essential hypertension GERD (gastroesophageal reflux disease) MARISOL (obstructive sleep apnea (more content not included)... [facility] 12-01-2023 [facility] Office Visit (INTMWS ) EVERTON PARDO ([id number]) 1935 M Date Time Provider Department 12/01/23 9:40 AM MARIANO OCAMPO INTMWS During your visit today, we recorded the following information about you: Temperature Pulse Respiration Blood pressure 97.5 degrees 52/minute 16/minute 116/62 Weight 70.4 kg Mariano Ocampo MD 12/01/2023 11:16 AM Signed This note was created using NoteWriter. Subjective Everton Pardo is a 88 year old male was doing better. Cough and wheezing resolved. Weight was increasing and appetite was better. His glucose was elevated non fasting but A1C was normal. His main concern was ongoing LUTS. Review of Systems Constitutional: Negative for appetite change, fever and unexpected weight change. Respiratory: Negative for cough, shortness of breath and wheezing. Cardiovascular: Negative for chest pain, palpitations and leg swelling. Genitourinary: Positive for decreased urine volume, frequency and urgency. Negative for difficulty urinating and dysuria. ACTIVE PROBLEM LIST Bph With Obstruction/Lower Urinary Tract Symptoms Gout, Unspecified Actinic Keratosis (Premalignant AK) Allergic Rhinitis Hearing Loss of Both Ears Hyperlipidemia Ddd (Degenerative Disc Disease), Lumbar Gerd (Gastroesophageal Reflux Disease) Sleep Apnea, Obstructive Abnormal Lung Sounds Essential Hypertension Impaired Fasting Blood Sugar Nonrheumatic Aortic Valve Stenosis Atherosclerosis of Coronary Artery Nodule of Lower Lobe of Right Lung Cervical Pain Calculus of Gallbladder Without Cholecystitis Without Obstruction Prostate Cancer (Hcc) Social History Tobacco Use Smoking status: Never Smokeless tobacco: Never Tobacco comments: No smoking in childhood home. Vaping Use Vaping status: Never Used Substance Use Topics Alcohol use: No Drug use: No Current Outpatient Medications Medication Sig multivitamin/iron/folic acid (CENTRUM COMPLETE ORAL) Take 1 tablet by mouth once daily. albuterol HFA (PROVENTIL HFA, VENTOLIN HFA) 90 mcg/actuation inhaler Inhale 2 Puffs as instructed every 6 hours as needed for wheezing/shortness of breath. folic acid/multivit-min/lutein (CENTRUM SILVER ORAL) Take 1 tablet by mouth as needed. loratadine (CLARITIN) 10 mg tablet Take 1 tablet by mouth once daily. (Patient taking differently: Take 10 mg by mouth as needed.) clopidogrel (PLAVIX) 75 mg tablet Take 1 tablet by mouth once daily. famotidine (PEPCID) 20 mg tablet Take 1 tablet by mouth every afternoon. atorvastatin (LIPITOR) 80 mg tablet Take 40 mg by mouth daily at bedtime. For cholesterol. amLODIPine (NORVASC) 2.5 mg tablet Take 1 tablet by mouth once daily. finasteride (PROSCAR) 5 mg tablet Take 1 tablet by mouth once daily. metoprolol succinate ER (TOPROL XL) 25 mg 24 hr tablet Take 12.5 mg by mouth daily at bedtime. nitroglycerin sublingual (NITROQUICK) 0.4 mg SL tablet dissolve 1 tablet under the tongue every 5 minutes if needed for ... (REFER TO PRESCRIPTION NOTES). aspirin, enteric coated (ASPIRIN, ENTERIC COATED) 81 mg EC tablet Take 81 mg by mouth once daily. acetaminophen (TYLENOL EXTRA [...] VIT C/DL-E AC/LUT/COPPER/ZNOX (PRESERVISION ORAL) Take 1 tablet by mouth two times a day. Sodium Chloride (OCEAN NASAL) 0.65 % NASAL Mullen Use 1 [place] in the nose as needed. No current facility-administered medications for this visit. Objective BP 116/62 (BP Site: Left Arm, BP Position: Sitting, BP Cuff Size: Large Adult) Pulse (!) 52 Temp 36.4 ?C (97.5 ?F) (Temporal) Resp 16 Wt 70.4 kg (155 lb 3.3 oz) BMI 24.22 kg/m? Physical Exam Constitutional: General: He is not in acute distress. Cardiovascular: Rate and Rhythm: Bradycardia present. Heart sounds: No murmur heard. No gallop. Pulmonary: Effort: No respiratory distress. Breath sounds: Examination of the right-lower field reveals rales. Examination of the left-lower field reveals rales. Rales present. No wheezing. Musculoskeletal: Right lower leg: No edema. Left lower leg: No edema. Neurological: Mental Status: He is alert. Gait: Gait normal. Latest Ref Rng 11/22/2023 Glucose 74 - 99 mg/dL 162 (H) BUN 9 - 24 mg/dL 19 Creatinine 0.73 - 1.22 mg/dL 1.04 Sodium 136 - 144 mmol/L 140 Potassium 3.7 - 5.1 mmol/L 3.9 Chloride 98 - 107 mmol/L 105 CO2 22 - 30 mmol/L 27 Anion Gap 8 - 15 mmol/L 8 Calcium 8.5 - 10.2 mg/dL 9.6 eGFR >=60 mL/min/1.73m? 70 Legend: (H) High Assessment and Plan 1. Need for influenza vaccination - ICD9: V04.81, ICD10: Z23 (primary diagnosi (more content not included)... Normal [facility] HEMOGLOBIN A1C (POC)on 11-30 HbA1c (Bld) [Mass fraction] 5.2 % 4.3 - 5.6 % [facility] Comment on above: Location:[address], [place], [address] Point of care (POC) Hemoglobin A1c (HGBA1C) testing is intended to assess glucose control and provide a management tool for patients known to have diabetes and their healthcare providers. Target HGBA1C levels may depend on specific clinical circumstances. POC HGBA1C is not intended for use as a diagnostic or screening test; laboratory-based testing should be used for diagnostic purposes. The following information is supplemental and may not be applicable to specific diabetes management situations: The POC device senior administrative services officer provides a normal range of 4.2% to 6.5% for the HGBA1C POC test. However, the [place] [employer] guidelines indicate that patients with HGBA1C in the range of 5.7% to 6.4% are at increased risk for development of diabetes and that intervention by lifestyle modification may be beneficial. A HGBA1C level greater than or equal to 6.5% is considered diagnostic of diabetes, pending confirmatory testing. Use of HGBA1C testing to evaluate glucose control may not be appropriate for patients with hemoglobin variants or other conditions (e.g. anemia) that alter red blood cell lifespan. [facility] CNOVSPon 11-24-2023 CNOVSP Visit (SP) Office (H EMAWS) EVERTON PARDO ([id number]) 1935 M Date Time Provider Department 11/24/23 10:00 AM TREATMENT RM 14 [facility] WSTRHEMAWS During your visit today, we recorded the following information about you: Temperature Pulse Blood pressure 97.5 degrees 51/minute 125/53 Referring Provider: MASTER GUERRA [[id number]] Allergies As of Date: 11/24/2023 Noted Allergy Reaction ZETIA (EZETIMIBE) 04/07/2023 14 - Other: See Comments Comments: Joint pain GABAPENTIN 02/25/2015 12 - Shortness of Breath 14 - Other: See Comments Comments: dizziness MOBIC (MELOXICAM) 06/28/2006 8 - GI Upset SULFA (SULFONAMIDE ANTIBIOTICS) 11/29/2005 Comments: unkown Date Reviewed: 11/24/2023 Reviewed by: Jazmyn Ellison - Fully Assessed Reason for Visit: Chemotherapy Treatment [771] Primary Visit Diagnosis:Prostate cancer (HCC) [C61] Order(s):PHARMACY COMMUNICATION PATIENT ARRIVEDDisp: Rfl: [] acetaminophen 650 mg tab(s) (TYLENOL)Disp: Rfl: [] zoledronic acid 3.3 mg in NaCl 0.9% 100 mL (ZOMETA)Disp: Rfl: TREATMENT PARAMETER-NOT NEEDED [[id number]] Order #: [id number]: 1 BCN NURSING COMMUNICATION [[id number]] Order #: [id number]: 1 BCN NURSING COMMUNICATION [[id number]] Order #: [id number]: 1 STANDING [] leuprolide 22.5 mg subcutaneous syringe (ELIGARD)Disp: Rfl: NaCl 0.9% iv infusionDisp: Rfl: diphenhydrAMINE 50 mg injection (BENADRYL)Disp: Rfl: hydrocortisone sodium succinate (PF) 100 mg injection (Solu-CORTEF)Disp: Rfl: EPINEPHrine HCl (PF) 1 mg/mL (1 mL) 0.3 mg injectionDisp: Rfl: BCN NURSING COMMUNICATION [[id number]] Order #: [id number]: 1 STANDING BCN NURSING COMMUNICATION [[id number]] Order #: [id number]: 1 STANDING Prescriptions as of 11/24/2023 - multivitamin/iron/folic acid (CENTRUM COMPLETE ORAL) Take 1 tablet by mouth once daily. - traMADol (ULTRAM) 50 mg tablet Take 50 mg by mouth every 6 hours as needed for pain. - albuterol HFA (PROVENTIL HFA, VENTOLIN HFA) 90 mcg/actuation inhaler Inhale 2 Puffs as instructed every 6 hours as needed for wheezing/shortness of breath. - oxyCODONE-acetaminophen (PERCOCET) 5-325 mg tablet Take 1 tablet by mouth every 4 hours as needed. - predniSONE (DELTASONE) 10 mg tablet take 4 tablets by mouth once daily for 3 days then 3 tablets for ... (REFER TO PRESCRIPTION NOTES). - folic acid/multivit-min/lutein (CENTRUM SILVER ORAL) Take 1 tablet by mouth as needed. - loratadine (CLARITIN) 10 mg tablet Take 1 tablet by mouth once daily. - clopidogrel (PLAVIX) 75 mg tablet Take 1 tablet by mouth once daily. - famotidine (PEPCID) 20 mg tablet Take 1 tablet by mouth every afternoon. - atorvastatin (LIPITOR) 80 mg tablet Take 40 mg by mouth daily at bedtime. For cholesterol. - amLODIPine (NORVASC) 2.5 mg tablet Take 1 tablet by mouth once daily. - finasteride (PROSCAR) 5 mg tablet Take 1 tablet by mouth once daily. - lidocaine (LIDODERM) 5 % Apply 1 Patch as directed every 24 hours. Remove old patch prior to placing new patch. Location: upper back - metoprolol succinate ER (TOPROL XL) 25 mg 24 hr tablet Take 12.5 mg by mouth daily at bedtime. - nitroglycerin sublingual (NITROQUICK) 0.4 mg SL tablet dissolve 1 tablet under the tongue every 5 minutes if needed for ... (REFER TO PRESCRIPTION NOTES). - aspirin, enteric coated (ASPIRIN, ENTERIC COATED) 81 mg EC tablet Take 81 mg by mouth once daily. - acetaminophen (TYLENOL EXTRA STRENGTH ORAL) Take 1 tablet by mouth as needed. - ketoconazole (NIZORAL) 2 % shampoo WASH FACE AND EARS - AND LET SIT FOR 5 MINUTES as directed ALTERN... (REFER TO PRESCRIPTION NOTES). - fluticasone 50 mcg/actuation nasal spray Use 2 Sprays in each nostril once daily as needed for Cold/Allergy Symptoms. Rinse mouth after use. - VIT C/DL-E AC/LUT/COPPER/ZNOX (PRESERVISION ORAL) Take 1 tablet by mouth two times a day. - Sodium Chloride (OCEAN NASAL) 0.65 % NASAL Mullen Use 1 [place] in the nose as needed. Facility-Administered Medications as of 11/24/2023 - PHARMACY COMMUNICATION PATIENT ARRIVED - NaCl 0.9% iv infusion - diphenhydrAMINE 50 mg injection (BENADRYL) - hydrocortisone sodium succinate (PF) 100 mg injection (Solu-CORTEF) - EPINEPHrine HCl (PF) 1 mg/mL (1 mL) 0.3 mg injection Problem List As Of Date 11/24/2023 Noted Resolved Generalized osteoarthrosis, unspecified site [M*11/29/2005 01/05/2013 Elevated prostate specific antigen (PSA) [R97.2*10/19/2007 01/09/2014 BPH with obstruction/lower urinary tract sympto*10/19/2007 Gout, Unspecified [M10.9] 09/03/2008 Chronic back pain [M54.50] 09/03/2008 01/08/2015 Actinic Keratosis (Premalignant AK) [L57.0] 09/11/2009 History of Malignant Neoplasm of Skin: BCC AND S*09/11/2009 01/14/2012 Surgical Scar and Fibrosis of Skin [L90.5] 09/11/2009 01/14/2012 Actinic Damage///Sun-Damaged Skin [L57.8] 09/11/2009 01/14/2012 Solar l (more content not included)... [facility] EVERTON PARDO ([id number]) 1935 M Date Time Provider Department 11/24/23 9:30 AM JAZMYN ELLISON During your visit today, we recorded the following information about you: Temperature Pulse Blood pressure Weight 97.4 degrees 49/minute 109/63 70.5 kg Height 1.705 m Jazmyn Ellison 11/24/2023 11:17 AM Signed Everton Pardo 1935 11/24/2023 HISTORY OF PRESENT ILLNESS: Everton Pardo is a 87 year old male referred by Dr Ocampo re PSA 5000, bone lesions. Saw Dr Juarez,Casodex written he took last dose of Rx 2 days ago. Had a bone biopsy 08-30-23. Showed metastatic prostate cancer. Here for follow up and first lupron injection. Feels ok, no pain, just tired. Discussed SE lupron, general treatment approach to prostate cancer, treatment goals. Here for follow up, doing well. PSA down We have clearance for zometa Interval Hx: Mr. Pardo presents today with his spouse for follow up, Lupron and zometa. He reports feeling well overall. Denies fevers, chills or NS. Occasional hot flashes are tolerable. Denies new issues. Denies new aches or pains. No SOB, CP, or palpitations. No CAR, dizziness, or changes in vision. Denies N/V/C/D. Occasional constipation managed with prune juice. No changes in bowel or bladder habits. No rash or skin changes. Denies bleeding or bruising. No edema. PAST MEDICAL HISTORY 09/11/2009: History of Malignant Neoplasm of Skin: BCC AND SCC 09/18/2009: Allergic rhinitis Comment: Dr. Mccormack, immunotherapy. 09/14/2022: Atherosclerosis of coronary artery 06/09/2006: BRACHIAL NEURITIS NOS 01/31/2023: Calculus of gallbladder without cholecystitis without obstruction 11/29/2005: Cervicalgia 01/02/2013: Chronic prostatitis No date: Depression 08/03/2017: Disorder of scapula 06/28/2001: Diverticulosis of colon Comment: Tortuous colon 10/19/2007: ELEVATED PROSTATE SPECIFIC ANTIGEN Comment: PSA 3.8 in -, 4.7 in -, 4.3 in 09-19: Malgieri rec routine follow up No date: Environmental allergies 10/08/2019: Essential hypertension 08/13/1999: Gastritis 11/29/2005: GENERAL OSTEOARTHROSIS 09/03/2008: GOUT NOS Comment: Uric acid 5.8 in -, 7.9 in 8- (during acute attack) 01/07/2014: Hearing loss of both ears 10/19/2007: Hypertrophy of prostate with urinary obstruction and other lower urinary tract symptoms (LUTS) 09/03/2008: Lumbago Comment: MRI : small central herniation at L4-5, mild DDD L4-5 and L5-S1 Rec Tylenol and PT in 08-20: need to review old MRI and consider spinal stenosis Reviewed the importance of weight loss as of 08-2008/13/2022: Nonrheumatic aortic valve stenosis 07/19/2007: Periodic limb movement disorder (PLMD) 07/29/2023: 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 I'm not using it anymore. No date: Snoring PAST SURGICAL HISTORY 1945: APPENDECTOMY 09/20/2022: CC CORONARY STENT Comment: PCI D1; RUPESH pLAD, OM1, and rPDA 08/21/2018: COLONOSCOPY 06/28/2001: COLONOSCOPY FLX DX W/COLLJ SPEC WHEN PFRMD Comment: Colonoscopy 08/02/2001: ESOPHAGOGASTRODUODENOSCOPY TRANSORAL DIAGNOSTIC Comment: EGD 12/15/2015: ESOPHAGOGASTRODUODENOSCOPY TRANSORAL DIAGNOSTIC Comment: EGD 09/13/2022: LEFT HEART CATH,PERCUTANEOUS 2010: PAST SURGICAL HISTORY OF Comment: cysts, skin lesions, basal cell cancer 08/2012: PROSTATE BIOPSY FAMILY HISTORY Problem Relation Age of Onset Cancer Mother Pt states does not remember type Heart Father [place] age 60s GI Sister gastrectomy Cancer Sister stomach cancer other (fibromyalgia) Sister Prostate Cancer Brother No Known Problems Other Lung disease Social History Tobacco Use Smoking status: Never Smokeless tobacco: Never Tobacco comments: No smoking in childhood home. Vaping Use Vaping status: Never Used Substance Use Topics Alcohol use: No Drug use: No ALLERGIES: ALLERGIES Allergen Reactions Zetia [Ezetimibe] Other: See Comments Joint pain Gabapentin Shortness of Breath, Other: See Comments dizziness Mobic [Meloxicam] GI Upset Sulfa (Sulfonamide * unkown CURRENT OUTPATIENT MEDICATIONS: multivitamin/iron/folic acid (CENTRUM COMPLETE ORAL)Take 1 tablet by mouth once daily.Disp: Rfl: traMADol (ULTRAM) 50 mg tabletTake 50 mg by mouth every 6 hours as needed for pain.Disp: Rfl: albuterol HFA (PROVENTIL HFA, VENTOLIN HFA) 90 mcg/actuation inhalerInhale 2 Puffs as instructed every 6 hours as needed for wheezing/shortness of breath.Disp: 18 gRfl: 0 oxyCODONE-acetaminophen (PERCOCET) 5-325 mg tabletTake 1 tablet by mouth every 4 hours as needed.Disp: Rfl: folic acid/multivit-min/lutein (CENTRUM SILVER ORAL)Take 1 tablet by mouth as needed.Disp: Rfl: loratadine ( (more content not included)... Normal [facility] 11-24-2023 CNPN Telephone (INTMWS) EVERTON PARDO ([id number]) 1935 M Date Time Provider Department 11/24/23 MARIANO OCAMPO INTMWS During your visit today, we recorded the following information about you: Kaye Lozano RN 11/24/2023 1:36 PM Signed Spouse Silke calling regarding a testing related question. Information provided to patientEverton. Kaye Lozano RN Allergies As of Date: 11/24/2023 Noted Allergy Reaction ZETIA (EZETIMIBE) 04/07/2023 14 - Other: See Comments Comments: Joint pain GABAPENTIN 02/25/2015 12 - Shortness of Breath 14 - Other: See Comments Comments: dizziness MOBIC (MELOXICAM) 06/28/2006 8 - GI Upset SULFA (SULFONAMIDE ANTIBIOTICS) 11/29/2005 Comments: unkown Date Reviewed: 11/24/2023 Reviewed by: Jazmyn Ellison - Fully Assessed Reason for Visit: Orders [681] Prescriptions as of 11/24/2023 - multivitamin/iron/folic acid (CENTRUM COMPLETE ORAL) Take 1 tablet by mouth once daily. - traMADol (ULTRAM) 50 mg tablet Take 50 mg by mouth every 6 hours as needed for pain. - albuterol HFA (PROVENTIL HFA, VENTOLIN HFA) 90 mcg/actuation inhaler Inhale 2 Puffs as instructed every 6 hours as needed for wheezing/shortness of breath. - oxyCODONE-acetaminophen (PERCOCET) 5-325 mg tablet Take 1 tablet by mouth every 4 hours as needed. - predniSONE (DELTASONE) 10 mg tablet take 4 tablets by mouth once daily for 3 days then 3 tablets for ... (REFER TO PRESCRIPTION NOTES). - folic acid/multivit-min/lutein (CENTRUM SILVER ORAL) Take 1 tablet by mouth as needed. - loratadine (CLARITIN) 10 mg tablet Take 1 tablet by mouth once daily. - clopidogrel (PLAVIX) 75 mg tablet Take 1 tablet by mouth once daily. - famotidine (PEPCID) 20 mg tablet Take 1 tablet by mouth every afternoon. - atorvastatin (LIPITOR) 80 mg tablet Take 40 mg by mouth daily at bedtime. For cholesterol. - amLODIPine (NORVASC) 2.5 mg tablet Take 1 tablet by mouth once daily. - finasteride (PROSCAR) 5 mg tablet Take 1 tablet by mouth once daily. - lidocaine (LIDODERM) 5 % Apply 1 Patch as directed every 24 hours. Remove old patch prior to placing new patch. Location: upper back - metoprolol succinate ER (TOPROL XL) 25 mg 24 hr tablet Take 12.5 mg by mouth daily at bedtime. - nitroglycerin sublingual (NITROQUICK) 0.4 mg SL tablet dissolve 1 tablet under the tongue every 5 minutes if needed for ... (REFER TO PRESCRIPTION NOTES). - aspirin, enteric coated (ASPIRIN, ENTERIC COATED) 81 mg EC tablet Take 81 mg by mouth once daily. - acetaminophen (TYLENOL EXTRA STRENGTH ORAL) Take 1 tablet by mouth as needed. - ketoconazole (NIZORAL) 2 % shampoo WASH FACE AND EARS - AND LET SIT FOR 5 MINUTES as directed ALTERN... (REFER TO PRESCRIPTION NOTES). - fluticasone 50 mcg/actuation nasal spray Use 2 Sprays in each nostril once daily as needed for Cold/Allergy Symptoms. Rinse mouth after use. - VIT C/DL-E AC/LUT/COPPER/ZNOX (PRESERVISION ORAL) Take 1 tablet by mouth two times a day. - Sodium Chloride (OCEAN NASAL) 0.65 % NASAL Mullen Use 1 [place] in the nose as needed. Facility-Administered Medications as of 11/24/2023 - PHARMACY COMMUNICATION PATIENT ARRIVED - NaCl 0.9% iv infusion - diphenhydrAMINE 50 mg injection (BENADRYL) - hydrocortisone sodium succinate (PF) 100 mg injection (Solu-CORTEF) - EPINEPHrine HCl (PF) 1 mg/mL (1 mL) 0.3 mg injection Problem List As Of Date 11/24/2023 Noted Resolved Generalized osteoarthrosis, unspecified site [M*11/29/2005 01/05/2013 Elevated prostate specific antigen (PSA) [R97.2*10/19/2007 01/09/2014 BPH with obstruction/lower urinary tract sympto*10/19/2007 Gout, Unspecified [M10.9] 09/03/2008 Chronic back pain [M54.50] 09/03/2008 01/08/2015 Actinic Keratosis (Premalignant AK) [L57.0] 09/11/2009 History of Malignant Neoplasm of Skin: BCC AND S*09/11/2009 01/14/2012 Surgical Scar and Fibrosis of Skin [L90.5] 09/11/2009 01/14/2012 Actinic Damage///Sun-Damaged Skin [L57.8] 09/11/2009 01/14/2012 Solar lentigo [L81.4] 09/11/2009 01/16/2012 Allergic Rhinitis [J30.9] 09/18/2009 Sleep apnea, obstructive [G47.33] 07/19/2007 12/29/2017 Periodic limb movement disorder (PLMD) [G47.61] 07/19/2007 12/29/2017 Hematuria [R31.9] 02/02/2012 01/07/2014 Urgency of urination [R39.15] 02/02/2012 12/29/2017 Frequency of urination [R35.0] 02/02/2012 12/29/2017 Dribbling [N39.43] 02/02/2012 03/02/2017 Pulmonary nodules/lesions, multiple [R91.8] 02/08/2012 01/05/2013 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] 01/02/2013 12/29/2017 Chronic prostatitis [N41.1] 01/02/2013 12/29/2017 Medication intolerance [Z78.9] 09/11/2013 01/17/2020 Hearing loss of both ears [H91.93] 01/07/2014 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 Normal [facility] Basic metabolic 2000 panelon 11-22-2023 Anion gap [Moles/Vol] 8 mmol/L Normal 8-15 [facility] Comment on above: Order Comment: Speci men Type: BLOOD SPECIMENOrdering Facility: [facility] Address: [address] [place] [address] Performed By: #### 2 4321-2 ####[facility] NICOLE MILLTOWNCLIA [id number] [place] [address] [place] Calcium [Mass/Vol] 9.6 mg/dL Normal 8.5-10.2 [facility] Comment on above: Order Comment: Speci men Type: BLOOD SPECIMENOrdering Facility: [facility] Address: [address] [place] [address] Performed By: #### 2 4321-2 ####[facility] NICOLE MILLTOWNCLIA [id number] [place] [address] [place] Chloride [Moles/Vol] 105 mmol/L Normal 98-107 [facility] Comment on above: Order Comment: Speci men Type: BLOOD SPECIMENOrdering Facility: [facility] Address: [address] [place] [address] Performed By: #### 2 4321-2 ####[facility] NICOLE MILLTOWNCLIA [id number] [place] [address] [place] CO2 [Moles/Vol] 27 mmol/L Normal 22-30 [facility] Comment on above: Order Comment: Speci men Type: BLOOD SPECIMENOrdering Facility: [facility] Address: [address] [place] [address] Performed By: #### 2 4321-2 ####[facility] NICOLE MILLTOWNCLIA [id number] [place] [address] [place] Creatinine [Mass/Vol] 1.04 mg/dL Normal 0.73-1.22 [facility] Comment on above: Order Comment: Prudencio underwood Type: BLOOD SPECIMENOrdering Facility: [facility] Address: [address] [place] [address] Performed By: #### 2 4321-2 ####[facility] [id number] [place] [address] [place] Creatinine and Glomerular filtration rate.predicted panel (S/P/Bld) 70 mL/min/1.73m??? Normal >=60 [facility] Comment on above: Order Comment: Prudencio underwood Type: BLOOD SPECIMENOrdering Facility: [facility] Address: [address] [place] [address] Result Comment: Tracy mated Glomerular Filtration Rate (eGFR) is calculated using the 2020 CKD-EPI creatinine equation. This equation utilizes serum creatinine, sex, and age as parameters. The creatinine assay has traceable calibration to isotope dilution-mass spectrometry. Refer to KDIGO guidelines for clinical interpretation. In patients with unstable renal function, e.g. those with acute kidney injury, the eGFR may not accurately reflect actual GFR. Performed By: #### 2 4321-2 ####[facility] [id number] [place] [address] [place] Glucose [Mass/Vol] 162 mg/dL High 74-99 [facility] Comment on above: Order Comment: Prudencio underwood Type: BLOOD SPECIMENOrdering Facility: [facility] Address: [address] [place] [address] Result Comment: The [place] Diabetes Association (ADA) provides guidance for cutoff values for fasting glucose and random glucose. The ADA defines fasting as no caloric intake for at least 8 hours. Fasting plasma glucose results between 100 to 125 mg/dL indicate increased risk for diabetes (prediabetes). Fasting plasma glucose results greater than or equal to 126 mg/dL meet the criteria for diagnosis of diabetes. In the absence of unequivocal hyperglycemia, results should be confirmed by repeat testing. In a patient with classic symptoms of hyperglycemia or hyperglycemic crisis, random plasma glucose results greater than or equal to 200 mg/dL meet the criteria for diagnosis of diabetes. Reference: Standards of Medical Care in Diabetes 2016, [place] [employer]. Diabetes Care. 2016.39(Suppl 1). Performed By: #### 2 4321-2 ####[facility] [id number] [place] [address] [place] Potassium [Moles/Vol] 3.9 mmol/L Normal 3.7-5.1 [facility] Comment on above: Order Comment: Speci men Type: BLOOD SPECIMENOrdering Facility: [facility] Address: [address] [place] [address] Performed By: #### 2 4321-2 ####[facility] [id number] [place] [address] [place] Sodium [Moles/Vol] 140 mmol/L Normal 136-144 [facility] Comment on above: Order Comment: Speci men Type: BLOOD SPECIMENOrdering Facility: [facility] Address: [address] [place] [address] Performed By: #### 2 4321-2 ####[facility] [id number] [place] [address] [place] Urea nitrogen [Mass/Vol] 19 mg/dL Normal 9-24 [facility] Comment on above: Order Comment: Speci men Type: BLOOD SPECIMENOrdering Facility: [facility] Address: [address] [place], [place] [id number] Performed By: #### 2 4321-2 ####[facility] [id number] [place] [address] [place] [facility] Prostate specific Ag [Mass/Vol] 44.24 ng/mL High <2.60 [facility] Comment on above: Order Comment: Speci men Type: BLOOD SPECIMENOrdering Facility: [facility] Address: [address] [place] [address] Result Comment: Emelinaa l PSA test methodology used is the Electrochemiluminescence Immunoassay by [employer]. Total PSA values by differing methodologies cannot be interchanged. For an individual patient, the significance of a PSA level should be interpreted in a broad clinical context, including age, race, family history, digital rectal exam, prostate size, results of prior testing (prostate biopsy, free PSA, PCA3), and use of 5-alpha reductase inhibitors. Considering the high incidence of asymptomatic cancer in the general population that may not pose an ultimate risk to a patient, the decision to recommend urological evaluation or prostate biopsy should be individualized after consideration of all these factors. REFERENCE: Joni Hamilton M.D., M.P.H., Hieu Pantoja M.D., Ph.D., Ish Singh M.D., Jeannette Parmar, M.P.H., Gema Cordero, Sc.Jace. Effect of Verification Bias on Screening for Prostate Cancer by Measurement of Prostatic Specific Antigen. N Engl J Med 2003,349:335-42. Performed By: #### 2 857-1 ####[facility]IA [id number] [facility] [place] [address] [place] CNPJessie 11-10-2023 TABN Telephone (NALINI) EVERTON PARDO ([id number]) 1935 M Date Time Provider Department 11/10/23 MASTER GUERRA During your visit today, we recorded the following information about you: Rupinder Garcia LPN 11/10/2023 2:34 PM Signed Dental clearance form received, free from disease. Scanned into chart and given to provider. RIC Peace Cathleen, RN 11/10/2023 4:26 PM Signed Patient scheduled to start 11/24/23. Morena Young RN Allergies As of Date: 11/10/2023 Noted Allergy Reaction ZETIA (EZETIMIBE) 04/07/2023 14 - Other: See Comments Comments: Joint pain GABAPENTIN 02/25/2015 12 - Shortness of Breath 14 - Other: See Comments Comments: dizziness MOBIC (MELOXICAM) 06/28/2006 8 - GI Upset SULFA (SULFONAMIDE ANTIBIOTICS) 11/29/2005 Comments: unkown Date Reviewed: 10/07/2023 Reviewed by: Abdoulaye Webb MA - Fully Assessed Reason for Visit: Patient Update [1234] Prescriptions as of 11/10/2023 - albuterol HFA (PROVENTIL HFA, VENTOLIN HFA) 90 mcg/actuation inhaler Inhale 2 Puffs as instructed every 6 hours as needed for wheezing/shortness of breath. - doxycycline hyclate (VIBRAMYCIN) 100 mg capsule Take 100 mg by mouth two times a day. - oxyCODONE-acetaminophen (PERCOCET) 5-325 mg tablet Take 1 tablet by mouth every 4 hours as needed. - predniSONE (DELTASONE) 10 mg tablet take 4 tablets by mouth once daily for 3 days then 3 tablets for ... (REFER TO PRESCRIPTION NOTES). - folic acid/multivit-min/lutein (CENTRUM SILVER ORAL) Take 1 tablet by mouth as needed. - traMADol (ULTRAM) 50 mg tablet Take 1 tablet by mouth once daily as needed for pain for up to 180 days. - loratadine (CLARITIN) 10 mg tablet Take 1 tablet by mouth once daily. - clopidogrel (PLAVIX) 75 mg tablet Take 1 tablet by mouth once daily. - famotidine (PEPCID) 20 mg tablet Take 1 tablet by mouth every afternoon. - atorvastatin (LIPITOR) 80 mg tablet Take 0.5 tablets by mouth daily at bedtime. For cholesterol. - amLODIPine (NORVASC) 2.5 mg tablet Take 1 tablet by mouth once daily. - finasteride (PROSCAR) 5 mg tablet Take 1 tablet by mouth once daily. - lidocaine (LIDODERM) 5 % Apply 1 Patch as directed every 24 hours. Remove old patch prior to placing new patch. Location: upper back - metoprolol succinate ER (TOPROL XL) 25 mg 24 hr tablet Take 25 mg by mouth daily at bedtime. - nitroglycerin sublingual (NITROQUICK) 0.4 mg SL tablet dissolve 1 tablet under the tongue every 5 minutes if needed for ... (REFER TO PRESCRIPTION NOTES). - aspirin, enteric coated (ASPIRIN, ENTERIC COATED) 81 mg EC tablet Take 81 mg by mouth once daily. - acetaminophen (TYLENOL EXTRA STRENGTH ORAL) Take 1 tablet by mouth as needed. - ketoconazole (NIZORAL) 2 % shampoo WASH FACE AND EARS - AND LET SIT FOR 5 MINUTES as directed ALTERN... (REFER TO PRESCRIPTION NOTES). - fluticasone 50 mcg/actuation nasal spray Use 2 Sprays in each nostril once daily as needed for Cold/Allergy Symptoms. Rinse mouth after use. - VIT C/DL-E AC/LUT/COPPER/ZNOX (PRESERVISION ORAL) Take 1 tablet by mouth two times a day. - Sodium Chloride (OCEAN NASAL) 0.65 % NASAL Mullen Use 1 [place] in the nose as needed. Problem List As Of Date 11/10/2023 Noted Resolved Generalized osteoarthrosis, unspecified site [M*11/29/2005 01/05/2013 Elevated prostate specific antigen (PSA) [R97.2*10/19/2007 01/09/2014 BPH with obstruction/lower urinary tract sympto*10/19/2007 Gout, Unspecified [M10.9] 09/03/2008 Chronic back pain [M54.50] 09/03/2008 01/08/2015 Actinic Keratosis (Premalignant AK) [L57.0] 09/11/2009 History of Malignant Neoplasm of Skin: BCC AND S*09/11/2009 01/14/2012 Surgical Scar and Fibrosis of Skin [L90.5] 09/11/2009 01/14/2012 Actinic Damage///Sun-Damaged Skin [L57.8] 09/11/2009 01/14/2012 Solar lentigo [L81.4] 09/11/2009 01/16/2012 Allergic Rhinitis [J30.9] 09/18/2009 Sleep apnea, obstructive [G47.33] 07/19/2007 12/29/2017 Periodic limb movement disorder (PLMD) [G47.61] 07/19/2007 12/29/2017 Hematuria [R31.9] 02/02/2012 01/07/2014 Urgency of urination [R39.15] 02/02/2012 12/29/2017 Frequency of urination [R35.0] 02/02/2012 12/29/2017 Dribbling [N39.43] 02/02/2012 03/02/2017 Pulmonary nodules/lesions, multiple [R91.8] 02/08/2012 01/05/2013 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 Normal [facility] CNOVSPon 10-07-2023 CNOVS Visit (SP) Office (H EMAWS) EVERTON PARDO ([id number]) 1935 M Date Time Provider Department 10/07/23 8:50 AM MASTER GUERRA During your visit today, we recorded the following information about you: Temperature Pulse Blood pressure Weight 97.1 degrees 41/minute 126/53 69.6 kg Master Guerra MD 10/07/2023 3:35 PM Signed (Elements copied from my note dated September 01, 2023, have been reviewed and updated where appropriate, and all reflect current assessment and medical decision making from today's encounter, October 07, 2023) HISTORY OF PRESENT ILLNESS: Everton Pardo is a 87 year old male referred by Dr Ocampo re PSA 5000, bone lesions. Saw Dr Juarez,Casodex written he took last dose of Rx 2 days ago. Had a bone biopsy 08-30-23. Showed metastatic prostate cancer. Here for follow up and first lupron injection. Feels ok, no pain, just tired. Discussed SE lupron, general treatment approach to prostate cancer, treatment goals. Here for follow up, doing well. 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 RECOMMENDATION/PLAN: 1. Resume Casodex another month, then stop 2. Lupron and zometa q 3 months 3. Dental clearance form given for zometa 4. Back q 3 months with PSA. Written and verbal health teaching given to patient, patient verbalizes understanding and agrees with treatment plan. 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 Mccormack, immunotherapy. 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 Diverticulosis of colon 06/28/2001 Tortuous colon ELEVATED PROSTATE SPECIFIC ANTIGEN 10/19/2007 PSA 3.8 in 9-, 4.7 in -08, 4.3 in -: Malgieri rec routine follow up Environmental allergies Essential hypertension 10/08/2019 Gastritis 08/13/1999 GENERAL OSTEOARTHROSIS 11/29/2005 GOUT NOS 09/03/2008 Uric acid 5.8 in 6-09, 7.9 in 8-09 (during acute attack) Hearing loss of both ears 01/07/2014 Hypertrophy of prostate with urinary obstruction and other lower urinary tract symptoms (LUTS) 10/19/2007 Lumbago 09/03/2008 MRI : small central herniation at L4-5, mild DDD L4-5 and L5-S1 Rec Tylenol and PT in 08-20: need to review old MRI and consider spinal stenosis Reviewed the importance of weight loss as of 08-20 Nonrheumatic aortic valve stenosis 08/13/2022 Periodic limb movement disorder (PLMD) 07/19/2007 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 I'm not using it anymore. Snoring PAST SURGICAL HISTORY Procedure Laterality Date APPENDECTOMY 194 CC CORONARY STENT 09/20/2022 PCI D1; RUPESH pLAD, OM1, and rPDA COLONOSCOPY 08/21/2018 COLONOSCOPY FLX DX W/COLLJ SPEC WHEN PFRMD 06/28/2001 Colonoscopy ESOPHAGOGASTRODUODENOSCOPY TRANSORAL DIAGNOSTIC 08/02/2001 EGD ESOPHAGOGASTRODUODENOSCOPY TRANSORAL DIAGNOSTIC 12/15/2015 EGD LEFT HEART CATH,PERCUTANEOUS 09/13/2022 PAST SURGICAL HISTORY OF 2010 cysts, skin lesions, basal cell cancer PROSTATE BIOPSY 08/2012 FAMILY HISTORY Problem Relation Age of Onset Cancer Mother Pt states does not remember type Heart Father [place] age 60s GI Sister gastrectomy Cancer Sister stomach cancer other (fibromyalgia) Sister Prostate Cancer Brother No Known Problems Other Lung disease Social History Tobacco Use Smoking status: Never Smokeless tobacco: Never Tobacco comments: No smoking in childhood home. Vaping Use Vaping Use: Never used Substance Use Topics Alcohol use: No Drug use: No ALLERGIES: ALLERGIES Allergen Reactions Zetia [Ezetimibe] Other: See Comments Joint pain Gabapentin Shortness of Breath, Other: See Comments dizziness Mobic [Meloxicam] GI Upset Sulfa (Sulfonamide * unkown CURRENT OUTPATIENT MEDICATIONS: albuterol HFA (PROVENTIL HFA, VENTOLIN HFA) 90 mcg/actuation inhaler Inhale 2 Puffs as instructed every 6 hours as needed for wheezing/shortness of breath. doxycycline hyclate (VIBRAMYCIN) 100 mg capsule Take 100 mg by mouth two times a day. oxyCODONE-acetaminophen (PERCOCET) 5-325 mg tablet Take 1 tablet by mouth every 4 hours as needed. folic acid/multivit-min/lutein (CENTRUM SILVER ORAL) Take 1 tablet by mouth as needed. loratadine (CLARITIN) 10 mg tablet Take 1 tablet by mouth once daily. (Patient taking differently: Take 10 mg by mouth as needed.) clopidogrel (PLAVIX) 75 mg tablet Take 1 tablet by mouth once daily. famotidine (PEPCID) 20 mg tablet Take 1 ta (more content not included)... Normal [facility] PSA SerPl-mCncon 10-05-2023 Prostate specific Ag [Mass/Vol] 140.10 ng/mL High <2.60 [facility] Comment on above: Order Comment: Speci men Type: BLOOD SPECIMENOrdering Facility: [facility] Address: [address] [place] [address] Result Comment: Emelinaa samaria PSA test methodology used is the Electrochemiluminescence Immunoassay by [employer]. Total PSA values by differing methodologies cannot be interchanged. For an individual patient, the significance of a PSA level should be interpreted in a broad clinical context, including age, race, family history, digital rectal exam, prostate size, results of prior testing (prostate biopsy, free PSA, PCA3), and use of 5-alpha reductase inhibitors. Considering the high incidence of asymptomatic cancer in the general population that may not pose an ultimate risk to a patient, the decision to recommend urological evaluation or prostate biopsy should be individualized after consideration of all these factors. REFERENCE: Joni Hamilton M.D., M.P.H., Hieu Pantoja M.D., Ph.D., Ish Singh M.D., Jenanette Parmar, M.P.H., Gema Cordero Sc.D. Effect of Verification Bias on Screening for Prostate Cancer by Measurement of Prostatic Specific Antigen. N Engl J Med 2003,349:335-42. Performed By: #### 2 857-1 ####[facility] LABCLIA [id number] [address] [place] Ivet 10-04-2023 CNPN Telephone (NALINI) JOSLYNEVERTON Torrie ([id number]) 1935 M Date Time Provider Department 10/04/23 MASTER GUERRA During your visit today, we recorded the following information about you: Ashlyn Gonzales 10/04/2023 2:23 PM Signed Left message for patient to return call. When he calls, please see if he can come in to Dr. Guerra at 8:50 on 10/06. 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.) Dianne Winn 10/04/2023 2:31 PM Signed Rescheduled with spouse Allergies As of Date: 10/04/2023 Noted Allergy Reaction ZETIA (EZETIMIBE) 04/07/2023 14 - Other: See Comments Comments: Joint pain GABAPENTIN 02/25/2015 12 - Shortness of Breath 14 - Other: See Comments Comments: dizziness MOBIC (MELOXICAM) 06/28/2006 8 - GI Upset SULFA (SULFONAMIDE ANTIBIOTICS) 11/29/2005 Comments: unkown Date Reviewed: 09/01/2023 Reviewed by: Juliet Torres LPN - Fully Assessed Reason for Visit: Future Appointment [256] Prescriptions as of 10/04/2023 - bicalutamide (CASODEX) 50 mg tablet Take 1 tablet by mouth once daily. - albuterol HFA (PROVENTIL HFA, VENTOLIN HFA) 90 mcg/actuation inhaler Inhale 2 Puffs as instructed every 6 hours as needed for wheezing/shortness of breath. - doxycycline hyclate (VIBRAMYCIN) 100 mg capsule Take 100 mg by mouth two times a day. - oxyCODONE-acetaminophen (PERCOCET) 5-325 mg tablet Take 1 tablet by mouth every 4 hours as needed. - predniSONE (DELTASONE) 10 mg tablet take 4 tablets by mouth once daily for 3 days then 3 tablets for ... (REFER TO PRESCRIPTION NOTES). - folic acid/multivit-min/lutein (CENTRUM SILVER ORAL) Take 1 tablet by mouth once daily. - traMADol (ULTRAM) 50 mg tablet Take 1 tablet by mouth once daily as needed for pain for up to 180 days. - loratadine (CLARITIN) 10 mg tablet Take 1 tablet by mouth once daily. - clopidogrel (PLAVIX) 75 mg tablet Take 1 tablet by mouth once daily. - famotidine (PEPCID) 20 mg tablet Take 1 tablet by mouth every afternoon. - atorvastatin (LIPITOR) 80 mg tablet Take 0.5 tablets by mouth daily at bedtime. For cholesterol. - amLODIPine (NORVASC) 2.5 mg tablet Take 1 tablet by mouth once daily. - finasteride (PROSCAR) 5 mg tablet Take 1 tablet by mouth once daily. - lidocaine (LIDODERM) 5 % Apply 1 Patch as directed every 24 hours. Remove old patch prior to placing new patch. Location: upper back - metoprolol succinate ER (TOPROL XL) 25 mg 24 hr tablet Take 25 mg by mouth daily at bedtime. - nitroglycerin sublingual (NITROQUICK) 0.4 mg SL tablet dissolve 1 tablet under the tongue every 5 minutes if needed for ... (REFER TO PRESCRIPTION NOTES). - aspirin, enteric coated (ASPIRIN, ENTERIC COATED) 81 mg EC tablet Take 81 mg by mouth once daily. - acetaminophen (TYLENOL EXTRA STRENGTH ORAL) Take 1 tablet by mouth as needed. - ketoconazole (NIZORAL) 2 % shampoo WASH FACE AND EARS - AND LET SIT FOR 5 MINUTES as directed ALTERN... (REFER TO PRESCRIPTION NOTES). - fluticasone 50 mcg/actuation nasal spray Use 2 Sprays in each nostril once daily as needed for Cold/Allergy Symptoms. Rinse mouth after use. - VIT C/DL-E AC/LUT/COPPER/ZNOX (PRESERVISION ORAL) Take 1 tablet by mouth two times a day. - Sodium Chloride (OCEAN NASAL) 0.65 % NASAL Mullen Use 1 [place] in the nose as needed. Problem List As Of Date 10/04/2023 Noted Resolved Generalized osteoarthrosis, unspecified site [M*11/29/2005 01/05/2013 Elevated prostate specific antigen (PSA) [R97.2*10/19/2007 01/09/2014 BPH with obstruction/lower urinary tract sympto*10/19/2007 Gout, Unspecified [M10.9] 09/03/2008 Chronic back pain [M54.50] 09/03/2008 01/08/2015 Actinic Keratosis (Premalignant AK) [L57.0] 09/11/2009 History of Malignant Neoplasm of Skin: BCC AND S*09/11/2009 01/14/2012 Surgical Scar and Fibrosis of Skin [L90.5] 09/11/2009 01/14/2012 Actinic Damage///Sun-Damaged Skin [L57.8] 09/11/2009 01/14/2012 Solar lentigo [L81.4] 09/11/2009 01/16/2012 Allergic Rhinitis [J30.9] 09/18/2009 Sleep apnea, obstructive [G47.33] 07/19/2007 12/29/2017 Periodic limb movement disorder (PLMD) [G47.61] 07/19/2007 12/29/2017 Hematuria [R31.9] 02/02/2012 01/07/2014 Urgency of urination [R39.15] 02/02/2012 12/29/2017 Frequency of urination [R35.0] 02/02/2012 12/29/2017 Dribbling [N39.43] 02/02/2012 03/02/2017 Pulmonary nodules/lesions, multiple [R91.8] 02/08/2012 01/05/2013 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 Normal [facility] Echo Completeon 09-07-2023 Echo Complete [facility] [address] [place] [address] Echo Complete 09/07/23 1511 MR#: [id number] Acct: [id number] Name: EVERTON PARDO Rep #: [id number] : 1935 87 From: Jasper Gee MD Attending Dr: VANNA BalderasC Status: IRVIN JIMÉNEZ Ordering Dr: Sharyn Gonzalez NP RADIOLOGY ASSISTANT-C Date: 09/07/23 Location: [facility] Sex: M C Admitted: Version 2 Reason For Study: DYSPNEA Procedure This was a 2D Doppler, Color Flow transthoracic echocardiogram. Exam performed in department. Left Ventricle Normal left ventricle. Left ventricular systolic function is normal. The left ventricular ejection fraction is 65 %. Stage 1 diastolic dysfunction. No regional wall motion abnormalities noted. Right Ventricle Normal RV size. Normal systolic function. Atria The left atrium is mildly enlarged. Normal right atrium. Mitral Valve Normal mitral valve. Mild (1+) eccentric mitral valve insufficiency. Tricuspid Valve Normal tricuspid valve. Mild (1+) tricuspid valve insufficiency. Pulmonary artery systolic pressure is 33 mmHg. Aortic Valve Trisinus/trileaflet aortic valve. Mild focal aortic valve calcification. Peak aortic valve gradient 17 mmHg. Mean aortic valve gradient 10 mmHg. Mild aortic stenosis. Pulmonic Valve Normal pulmonic valve. Great Vessels Normal aortic root. The pulmonary artery is normal size. Normal inferior vena cava. Pericardium/Pleural No pericardial effusion. MMode/2D Measurements Calculations LVIDd: 4.8 cm IVSd: 0.94 cm LVOT diam: 2.1 cm LVIDs: 3.1 cm LVPWd: 1.0 cm LVOT area: 3.4 cm2 RVDd: 3.6 cm FS: 36.0 % Ao root diam: 3.3 cm LAV(MOD-bp): 75.0 ml LVAd ap4: 27.9 cm2 LAV(MOD-bp) Indexed: 42.8 ml/m2 LVLd ap4: 8.1 cm LAV(MOD-sp2): 72.3 ml EDV(MOD-sp4): 79.4 ml LAV(MOD-sp4): 73.8 ml EDV(sp4-el): 82.1 ml LVAs ap4: 15.2 cm2 LVLs ap4: 6.8 cm ESV(MOD-sp4): 30.7 ml ESV(sp4-el): 28.7 ml EF(MOD-sp4): 61.3 % EF(sp4-el): 65.0 % LVAd ap2: 29.1 cm2 SV(MOD-sp4): 48.7 ml SV(MOD-sp2): 55.2 ml LVLd ap2: 8.2 cm EDV(MOD-sp2): 84.5 ml EDV(sp2-el): 87.2 ml LVAs ap2: 15.2 cm2 LVLs ap2: 6.9 cm ESV(MOD-sp2): 29.3 ml ESV(sp2-el): 28.5 ml EF(MOD-sp2): 65.3 % SV(sp4-el): 53.3 ml LA dimension(2D): 3.9 cm LA A4 area: 23.4 cm2 RA A4 area: 17.9 cm2 TAPSE: 1.8 cm Time Measurements MV dec time: 0.23 sec Doppler Measurements Calculations MV E max juan: 92.5 cm/sec Lat Peak E' Juan: 6.9 cm/sec Med Peak E' Juan: 8.2 cm/sec MV A max juan: 103.2 cm/sec E/E' lat: 13.5 E/E' med: 11.3 MV E/A: 0.90 MV V2 max: 103.3 cm/sec MV P1/2t max juan: 101.4 cm/sec Ao V2 max: 208.9 cm/sec MV max P.3 mmHg MV P1/2t: 81.4 msec Ao max P.5 mmHg MV V2 mean: 51.2 cm/sec Ao V2 mean: 149.1 cm/sec MV mean P.3 mmHg MV dec slope: 364.9 cm/sec2 Ao mean P.8 mmHg MV V2 VTI: 42.8 cm MVA(P1/2t): 2.7 cm2 Ao V2 VTI: 52.5 cm AV (velocity ratio): 0.57 MVA(VTI): 2.4 cm2 ANGELICA(I,D): 1.9 cm2 ANGELICA(V,D): 2.0 cm2 LV V1 max: 122.3 cm/sec MR max juan: 437.8 cm/sec SV(LVOT): 101.0 ml LV V1 max P.0 mmHg MR max P.8 mmHg LV V1 mean P.3 mmHg MR mean juan: 373.1 cm/sec LV V1 mean: 85.3 cm/sec MR mean P.5 mmHg LV V1 VTI: 29.8 cm MR VTI: 170.4 cm PA V2 max: 81.4 cm/sec TR max juan: 265.9 cm/sec PA V2 mean: 60.1 cm/sec TR max P.3 mmHg ECHO/Echo Complete Interpretation Summary Normal left ventricle. Left ventricular systolic function is normal. The left ventricular ejection fraction is 65 %. Mean aortic valve gradient 10 mmHg. Mild aortic stenosis. Stage 1 diastolic dysfunction. Pulmonary artery systolic pressure is 33 mmHg. Mild focal aortic valve calcification. Ordering Physician: Sharyn Gonzalez Referring Physician: Mariano Ocampo Performed By: Alicia Rizo, REVA, RVT 09/07/23 1625 Date Jasper Gee MD CC: RALPH Gonzalez; Dr. Mariano Ocampo MD Date Dictated: 09/07/23 1511 Date Transcribed: 09/07/23 1625 [employer] Supplies Sales: Signed [facility] 09-06-2023 [facility] Telephone (NALINI) EVERTON PARDO ([id number]) 1935 M Date Time Provider Department 09/06/23 MASTER GUERRA During your visit today, we recorded the following information about you: Rupinder Garcia LPN 09/06/2023 1:19 PM Signed Pt got his first Eligard injection 08/31. calls stating pt has c/o the area is painful, slightly swollen, pink, warm to touch. Pt states he believes the swelling has increased in size over the last couple days. No fevers. Denies nausea vomiting diarrhea headaches or itching. Did not have issues in the area the day of, the symptoms started the next day. He is going to try a cool compress as he has not tried this yet. Please advise. RIC Peace Cathleen, NEISHA 09/07/2023 10:14 AM Signed Call to patient for an update, no answer, message left to call me back and phone/contact number provided. NEISHA Cunningham Cathleen, NEISHA 09/09/2023 11:13 AM Signed Call to patient, message left to call me back and phone/contact number provided. NEISHA Cunningham Cathleen, NEISHA 09/09/2023 4:20 PM Signed calls in and states that area had not changed or worsen since calling in on Tuesday. States can feel a golf ball size lump under the skin at injection site. It is sore to the touch but no longer pink or warm to the touch. It is aggravating b/c it it at his belt line. Denies fever or other issues/concerns. Instructed to call if symptoms worsen. Reminded of after hours number. Morena Young RN Allergies As of Date: 09/06/2023 Noted Allergy Reaction ZETIA (EZETIMIBE) 04/07/2023 14 - Other: See Comments Comments: Joint pain GABAPENTIN 02/25/2015 12 - Shortness of Breath 14 - Other: See Comments Comments: dizziness MOBIC (MELOXICAM) 06/28/2006 8 - GI Upset SULFA (SULFONAMIDE ANTIBIOTICS) 11/29/2005 Comments: unkown Date Reviewed: 09/01/2023 Reviewed by: Juliet Torres LPN - Fully Assessed Prescriptions as of 09/09/2023 - bicalutamide (CASODEX) 50 mg tablet Take 1 tablet by mouth once daily. - albuterol HFA (PROVENTIL HFA, VENTOLIN HFA) 90 mcg/actuation inhaler Inhale 2 Puffs as instructed every 6 hours as needed for wheezing/shortness of breath. - doxycycline hyclate (VIBRAMYCIN) 100 mg capsule Take 100 mg by mouth two times a day. - oxyCODONE-acetaminophen (PERCOCET) 5-325 mg tablet Take 1 tablet by mouth every 4 hours as needed. - predniSONE (DELTASONE) 10 mg tablet take 4 tablets by mouth once daily for 3 days then 3 tablets for ... (REFER TO PRESCRIPTION NOTES). - folic acid/multivit-min/lutein (CENTRUM SILVER ORAL) Take 1 tablet by mouth once daily. - traMADol (ULTRAM) 50 mg tablet Take 1 tablet by mouth once daily as needed for pain for up to 180 days. - loratadine (CLARITIN) 10 mg tablet Take 1 tablet by mouth once daily. - clopidogrel (PLAVIX) 75 mg tablet Take 1 tablet by mouth once daily. - famotidine (PEPCID) 20 mg tablet Take 1 tablet by mouth every afternoon. - atorvastatin (LIPITOR) 80 mg tablet Take 0.5 tablets by mouth daily at bedtime. For cholesterol. - amLODIPine (NORVASC) 2.5 mg tablet Take 1 tablet by mouth once daily. - finasteride (PROSCAR) 5 mg tablet Take 1 tablet by mouth once daily. - lidocaine (LIDODERM) 5 % Apply 1 Patch as directed every 24 hours. Remove old patch prior to placing new patch. Location: upper back - metoprolol succinate ER (TOPROL XL) 25 mg 24 hr tablet Take 25 mg by mouth daily at bedtime. - nitroglycerin sublingual (NITROQUICK) 0.4 mg SL tablet dissolve 1 tablet under the tongue every 5 minutes if needed for ... (REFER TO PRESCRIPTION NOTES). - aspirin, enteric coated (ASPIRIN, ENTERIC COATED) 81 mg EC tablet Take 81 mg by mouth once daily. - acetaminophen (TYLENOL EXTRA STRENGTH ORAL) Take 1 tablet by mouth as needed. - ketoconazole (NIZORAL) 2 % shampoo WASH FACE AND EARS - AND LET SIT FOR 5 MINUTES as directed ALTERN... (REFER TO PRESCRIPTION NOTES). - fluticasone 50 mcg/actuation nasal spray Use 2 Sprays in each nostril once daily as needed for Cold/Allergy Symptoms. Rinse mouth after use. - VIT C/DL-E AC/LUT/COPPER/ZNOX (PRESERVISION ORAL) Take 1 tablet by mouth two times a day. - Sodium Chloride (OCEAN NASAL) 0.65 % NASAL [place] Use 1 [place] in the nose as needed. 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 Normal [facility] BRIEF OP NOTon 08-30-2023 BRIEF OP NOT HNO ID: [id number] Author: CHELE DOUGLAS DO Service: Interventional Radiology Author Type: Physician Type: Brief Op Note Filed: 08/30/2023 13:41 Note Text: BRIEF OPERATIVE / PROCEDURE NOTE LOG ID: [id number] SURGERY/PROCEDURE DATE: 08/30/2023 INCISION/PROCEDURE START TIME: 1:33 PM INCISION CLOSE/PROCEDURE END TIME: 1:38 PM SURGEON(S)/PROCEDURALIST(S) AND MILL OPERATOR(S): Surgeon(s) and Role: * Chele Douglas DO - Primary No Additional Staff SURGERY/PROCEDURE(S): Left iliac bone biopsy ANESTHESIA: Procedural Sedation FINDINGS: Biopsy of left iliac bone lesion performed with OraMetrix bone biopsy kit. Please refer to full dictated radiology report for further details. ESTIMATED BLOOD LOSS: <10 mls SPECIMENS: Left iliac bone cores sent to pathology COMPLICATIONS: None PRE-OP/PRE-PROCEDURE DIAGNOSIS: Osseous metastases POST-OP/POST-PROCEDURE DIAGNOSIS: Same as Preop SIGNATURE: Chele Douglas DO PATIENT NAME: Everton Pardo DATE: August 30, 2023 TIME: 1:40 PM Normal [facility] CBC panel Auto (Bld)on 08-29 Erythrocyte distribution width (RBC) [Ratio] 14.9 % Normal 11.5-15.0 [facility] Comment on above: Order Comment: Speci men Type: BLOOD SPECIMEN Ordering Facility: [facility] Address: [address] [place] [address] Performed By: #### 5 8410-2 #### Are You a Human [facility] CLIA [id number] [address] Hematocrit (Bld) [Volume fraction] 42.4 % Normal 39.0-51.0 [facility] Comment on above: Order Comment: Speci men Type: BLOOD SPECIMEN Ordering Facility: [facility] Address: [address] [place] [address] Performed By: #### 5 8410-2 #### [facility] CLIA [id number] [address] OF [facility] Hemoglobin (Bld) [Mass/Vol] 13.7 g/dL Normal 13.0-17.0 [facility] Comment on above: Order Comment: Speci men Type: BLOOD SPECIMEN Ordering Facility: [facility] Address: [address] [place] [address] Performed By: #### 5 8410-2 #### [facility] CLIA [id number] [address] MCH (RBC) [Entitic mass] 31.4 pg Normal 26.0-34.0 [facility] Comment on above: Order Comment: Speci men Type: BLOOD SPECIMEN Ordering Facility: [facility] Address: [address] [place] [address] Performed By: #### 5 8410-2 #### [facility] CLIA [id number] [address] OF [facility] MCHC (RBC) [Mass/Vol] 32.3 g/dL Normal 30.5-36.0 [facility] Comment on above: Order Comment: Speci men Type: BLOOD SPECIMEN Ordering Facility: [facility] Address: [address] [place] [address] Performed By: #### 5 8410-2 #### [facility] CLIA [id number] [address] MCV (RBC) [Entitic vol] 97.0 fL Normal 80.0-100.0 [place] Comment on above: Order Comment: Speci men Type: BLOOD SPECIMEN Ordering Facility: [facility] Address: [address] [place] [address] Performed By: #### 5 8410-2 #### [facility] CLIA [id number] [address] Nucleated RBC (Bld) [#/Vol] 10*3/uL Normal <0.01 [facility] Comment on above: Order Comment: Speci men Type: BLOOD SPECIMEN Ordering Facility: [facility] Address: [address] [place] [address] Performed By: #### 5 8410-2 #### [facility] CLIA [id number] [address] Platelet mean volume (Bld) [Entitic vol] 10.5 fL Normal 9.0-12.7 [facility] Comment on above: Order Comment: Speci men Type: BLOOD SPECIMEN Ordering Facility: [facility] Address: [address] [place] [address] Performed By: #### 5 8410-2 #### [facility] CLIA [id number] [address] OF [place] Platelets (Bld) [#/Vol] 249 10*3/uL Normal 150-400 [facility] Comment on above: Order Comment: Speci men Type: BLOOD SPECIMEN Ordering Facility: [facility] Address: [address] [place] [id number] Performed By: #### 5 8410-2 #### [facility] CLIA [id number] [address] [place] OF [facility] RBC (Bld) [#/Vol] 4.37 10*6/uL Normal 4.20-6.00 [facility] Comment on above: Order Comment: Speci men Type: BLOOD SPECIMEN Ordering Facility: [facility] Address: [address] [place] [address] Performed By: #### 5 8410-2 #### [facility] CLIA [id number] [address] WBC (Bld) [#/Vol] 7.25 10*3/uL Normal 3.70-11.00 [facility] Comment on above: Order Comment: Speci men Type: BLOOD SPECIMEN Ordering Facility: [facility] Address: [address] [place] [address] Performed By: #### 5 8410-2 #### [facility] CLIA [id number] [address] [facility] CT BX RIB/PELV/BAILEY/SPINE [facility] 08-30-2023 CT BX RIB/PELV/BAILEY/SPINE PROC * * *Final Report* * * DATE OF EXAM: Aug 30 2023 1:47PM [facility] 2036 - CT BX RIB/PELV/BAILEY/SPINE PROC / PROCEDURE REASON: M89.9 * * * * Physician Interpretation * * * * PROCEDURE PERFORMED: CT GUIDED BONE BIOPSY ON 08/30/2023 INDICATION FOR PROCEDURE: The patient is a 87 years old Male who presents with prostate cancer with diffuse osseous metastases. STAFF RADIOLOGIST: Chele Douglas DO MILL OPERATOR(S): None CONSENT: The risks, benefits, treatment options, potential complications and personnel involved were discussed with the patient. All questions were answered and consent was obtained. The patient indicated he was willing to proceed. The staff physician personally verified consent. TIME OUT: A time out was performed immediately prior to procedure start with the nursing, anesthesia and interventional team, correctly identifying the patient name, date of , procedure, anatomy (including marking of site and side), patient position, procedure consent form, relevant diagnostic and radiology test results, antibiotic administration (when indicated), safety precautions, and procedure-specific equipment needs. RESULT: PROCEDURE: After performing the time out, limited CT of pelvis was performed showing heterogeneous bone marrow with extensive mixed sclerotic/lytic lesions. The left posterior iliac wing was localized under CT. Skin entry site was prepped and draped in the usual sterile fashion. Under direct CT guidance, an 11 gauge OnControl needle was advanced to the marrow space. The stylette was removed, and through the outer cutting needle, 2 core samples were obtained with the 13-gauge OnControl needle through the outer guiding needle. Then, the outer 11-gauge cutting needle was used to obtain a sample from the bone marrow. The procedure was performed by the: attending radiologist, without an assistant plant controller. The attending radiologist performed the following procedural activities: Entire procedure ANESTHESIA/SEDATION: Conscious sedation was achieved using Versed and Fentanyl intravenously. Local anesthesia was achieved utilizing lidocaine. Vital signs were monitored by the nurse. START TIME/TIMEOUT TIME: 1333 END TIME: 1338 INTRA-SERVICE (SEDATION) TIME: 5 minutes PATIENT MONITORING: The staff physician personally supervised and directed an independent trained observer who assisted in monitoring the patient?s level of consciousness and physiological status throughout the procedure. COMPLICATIONS: None SIGN-OUT DISCUSSION: Completed ESTIMATED BLOOD LOSS: Minimal CONTRAST: None CT Radiation dose: Integrated Dose-length product (DLP) for this visit = 66 mGy*cm. CT Dose Reduction Employed: Automated exposure control(AEC) and iterative recon SPECIMENS: core biopsy sample was sent to pathology. BIOPSY DEVICE: 11 gauge OnControl biopsy needle. IMPRESSION: CT-GUIDED LEFT ILIAC BONE BIOPSY DESCRIBED Engineering Supplies Sales: [employer] Transcribe Date/Time: Sep 01 2023 2:32P Dictated by : CHELE DOUGLAS DO This examination was interpreted and the report reviewed and electronically signed by: CHELE DOUGLAS DO on Sep 01 2023 2:35PM EST [id number] Normal [facility] HISTORY PHYSICALon HISTORY PHYSICAL HNO ID: [id number] Author: CHELE DOUGLAS DO Service: Interventional Radiology Author Type: Physician Type: H&P Filed: 08/30/2023 13:27 Note Text: UPDATED HISTORY AND PHYSICAL EXAMINATION SERVICE DATE: 08/30/2023 SERVICE TIME: 1315 PHYSICAL EXAM MUST BE COMPLETED ON ADMISSION PROCEDURE SCHEDULED: Procedure(s) with comments: BONE BIOPSY TROCAR/NEEDLE DEEP; multiple bone lesions (Pending) - Lytic bone lesions on xray [M89.9], Dr. 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 The contents accurately reflect the patient's condition with the following additions or revisions since the HANDP was completed. Examination indicates no changes. This HANDP can be found in the Electronic Medical Record dated 08/20/2023. SIGNATURE: Chele Douglas DO PATIENT NAME: Everton Pardo DATE: August 30, 2023 TIME: 1:27 PM PAGER: Normal [facility] PT panel Coag (PPP)on 2023 INR Coag (PPP) [Relative time] 1.1 {INR} Normal 0.9-1.3 [facility] Comment on above: Order Comment: Speci men Type: BLOOD SPECIMEN Ordering Facility: [facility] Address: [address] [place] [address] Result Comment: Elisabeth min K Antagonist (VKA) Therapeutic Range: INR 2 to 3 (Target INR of 2.5) Note: For patients treated with VKA drugs, such as warfarin, the [place] [employer] 2012 Guideline recommends a therapeutic INR range of 2 to 3 (target INR of 2.5). This recommendation includes high-risk patients with antiphospholipid syndrome with previous arterial or venous thromboembolism, current-generation mechanical or bioprosthetic aortic heart valve replacement. Note: Patients with mechanical aortic valve replacement and additional risk factors for thromboembolic events (atrial fibrillation, previous thromboembolism, LV dysfunction, hypercoagulable conditions) or an older generation mechanical AVR (i.e., ball in-Cage) or any mechanical MVR should have a INR therapeutic range of 2.5 to 3.5 (target INR of 3). Ignacio SAMS, et al. Chest 2012, 141:7S-47S Neela SELLERS et al. [facility] 2017, 70: 252-289 Performed By: #### 3 4528-0 #### [facility] CLIA [id number] [address] PT Coag (PPP) [Time] 11.2 s Normal 9.7-13.0 [facility] Comment on above: Order Comment: Speci men Type: BLOOD SPECIMEN Ordering Facility: [facility] Address: [address] [place] [address] Performed By: #### 3 4528-0 #### [facility] CLIA [id number] [address] SURGICAL PATHOLOGYon 024 CASE REPORT Normal [facility] Comment on above: Order Comment: Speci [facility] Type: TISSUE SPECIMEN Ordering Facility: [facility] Address: [address] [place] [address] Result Comment: Surg ical Pathology Report Case: [id number] Authorizing Provider: Chele Douglas DO Collected: 08/30/2023 01:37 PM Ordering Location: [facility] Received: 08/30/2023 02:27 PM INTERVENTIONAL RADIOLOGY Pathologist: Art Hector MD Specimen: Bone, Biopsy, Left iliac Performed By: #### S #### [facility] CLIA [id number] [address] CLINICAL HISTORY Osseous metastases, history of prostate cancer Normal [facility] Comment on above: Order Comment: [facility]i [facility] Type: TISSUE SPECIMEN Ordering Facility: [facility] Address: [address] [place] [address] Performed By: #### S #### [facility] CLIA [id number] [address] [place] [address] DIAGNOSIS COMMENT Normal [facility] Comment on above: Order Comment: Speci men Type: TISSUE SPECIMEN Ordering Facility: [facility] Address: [address] [place] [address] Result Comment: An i mmunohistochemical stain for NKX3.1 is positive in the tumor cells consistent with the prostatic origin of this tumor. This case was reviewed by Dr. David Haider who agrees with this assessment. Laboratory Developed Test (LDT) Disclaimer: Performance characteristics of immunohistochemical, immunofluorescent and chromogenic in-situ hybridization tests have been determined by the performing laboratory within [facility]???s [facility] Pathology and Laboratory Medicine Department ([facility], [facility], [facility], [facility], [facility], [facility], or [facility]) in a manner consistent with CLIA requirements. One or more of these tests have not been cleared or approved by the FDA. [facility] is regulated under CLIA as qualified to perform high-complexity testing. These tests are used for clinical purposes. They should not be regarded as investigational or for research. Positive and negative controls stain appropriately. Performed By: #### S #### [facility] CLIA [id number] [address] [place] [address] FINAL DIAGNOSIS Normal [facility] Comment on above: Order Comment: Speci men Type: TISSUE SPECIMEN Ordering Facility: [facility] Address: [address] [place] [address] Result Comment: A. L eft iliac bone, core biopsy: - Positive for metastatic prostatic adenocarcinoma. See comment. Performed By: #### S #### [facility] CLIA [id number] [address] [place] [address] FINAL PERFORMING LAB Normal [facility] Comment on above: Order Comment: Speci men Type: TISSUE SPECIMEN Ordering Facility: [facility] Address: [address] [place] [address] Result Comment: Diag nostic interpretation performed at [facility], [address] [place] [address] CLIA# [id number] Veneer Redrier: Art Hector M.D. Performed By: #### S #### [facility] CLIA [id number] [address] [place] [address] GROSS DESCRIPTION A. Bone, Biopsy Normal [facility] Comment on above: Order Comment: Speci men Type: TISSUE SPECIMEN Ordering Facility: [facility] Address: [address], [place] [id number] Result Comment: Rece ived in formalin labeled left iliac bone biopsy are multiple fragments of osseous material admixed with pink soft material and red-brown hemorrhagic material aggregating to 1.4 x 1.0 x 0.3 cm. The specimens are totally submitted in formalin in 1 cassette following a brief period of decalcification. Gross examination performed at [facility], [address] [place] [address] KVB August 30, 2023 3:26 PM Performed By: #### S #### [facility] CLIA [id number] [address] [place] PET/CT PROSTATE WBon NM PET/CT PROSTATE WB * * *Final Report* * * DATE OF EXAM: Aug 15 2023 12:54PM [employer] 0093 - NM PET/CT PROSTATE WB / PROCEDURE REASON: multiple diagnoses * * * * Physician Interpretation * * * * EXAMINATION: PSMA PET-CT CLINICAL HISTORY: 87 year old man stage IV prostate cancer. TECHNIQUE: Radiopharmaceutical was administered IV followed about 60 minutes later by PET imaging from proximal thighs to skull vertex. Free breathing, low dose CT of the same body region was acquired without IV contrast for attenuation correction and anatomic localization. * CT Dose-Length Product (DLP): 312 mGy*cm * CT Dose Reduction Employed: Yes * Radiopharmaceutical dose: 9.1 mCi * Radiopharmaceutical: F-18 PSMA (Posluma) COMPARISON: No previous PSMA PET/CT available CORRELATION: CT abdomen/pelvis 10/30/2019 RESULT: REFERENCES: SUV reference values: * Background salivary gland activity: SUVmax 12 * Blood pool (descending aorta) activity: SUVmax 1.3 * Background liver activity: SUVmax 4.0 Cutter Inspector (topogram) images: No additional findings. Notes and limitations: * Standardized uptake values indicate the highest activity concentration (SUVmax) at a given location but can be variable and are not absolute. * Physiologic/non-pathologic uptake is common in salivary glands, lacrimal glands, neural ganglia, liver, spleen, GI tract, and urinary tract. Certain organ systems can have more intense activity, which could confound or obscure some pathology. * Unenhanced imaging is limited for the evaluation of some pathology and the acquired CT was not designed to produce or replace diagnostic CT quality. * PET-CT is often not sensitive for solid pulmonary nodules less than 8 mm. HEAD AND NECK: Head: No abnormal uptake. Bilateral maxillary sinus mucosal thickening. Neck and Lymph Nodes: Foci of intense activity in the hyoid bone, right thyroid cartilage and left cricoid cartilage (SUV max 19.6). Thyroid: No abnormal uptake. CHEST: Lungs and Airways: No abnormal uptake. Pleura and Pericardium: No abnormal uptake. Cardiovascular: No abnormal uptake. Thoracic aortic and coronary artery calcifications. Mediastinum and Lymph Nodes: No abnormal uptake. Calcified right hilar nodes, suggestive of prior granulomatous disease. ABDOMEN AND PELVIS: Hepatobiliary: No abnormal uptake. Spleen: No abnormal uptake. Calcified granulomata. Pancreas: No abnormal uptake. Adrenals: No abnormal uptake. Urinary Tract: No abnormal uptake. Left renal cysts. GI Tract: No abnormal uptake. No dilated bowel. Peritoneum: No abnormal uptake. Vasculature: No abnormal uptake. Atherosclerotic calcifications without an abdominal aortic aneurysm. Lymph Nodes: * Abdomen (including common iliac): No abnormal uptake. * Pelvis (below common iliac): Tracer avid bilateral common iliac, presacral, perirectal and bilateral pelvic nodes. For example, a 0.9 x 0.6 cm presacral node measures SUV max 11.5 (3/304), a 0.7 cm left internal iliac node measures SUV max 22.3 (3/16) and a 1 cm right external iliac node measures SUV max 24.5 (3/302). Prostate and Seminal Vesicles: There is heterogeneous, intense activity within the prostate gland, compatible with known malignancy. For example, uptake along the lateral aspect of the left mid gland measures SUV max 16.2 and uptake at the left apex posterior peripheral zone measures SUV max 13.5. Increased activity extends into the bilateral seminal vesicles, measuring SUV max 9.4 on the right. MUSCULOSKELETAL: Osseous: There is extensive tracer avid osseous metastatic disease throughout the axial and imaged appendicular skeleton. This includes multifocal involvement of the calvarium, bilateral humeri, bilateral clavicles, bilateral scapulae, sternum, bilateral ribs, all vertebral bodies, bony pelvis and bilateral femurs. Electrician Station Assistant areas include: -L2 vertebral body, SUV max 67.1 -Left sacral ala, SUV max 65.3 right clavicle, SUV max 57.3 Degenerative changes. Soft Tissues: No abnormal uptake. IMPRESSION: HEAD/NECK: * Foci of intense activity in the hyoid bone, right thyroid cartilage and left cricoid cartilage, compatible with metastatic involvement. CHEST: * No PSMA expressing neoplastic process. ABDOMENS/PELVIS: * Heterogeneous, intense activity within the prostate gland, compatible with known malignancy. Increased activity extends into the bilateral seminal vesicles, compatible with malignant involvement. * Tracer avid bilateral common iliac, presacral, perirectal and bilateral pelvic nodes, compatible with metastatic involvement. MUSCULOSKELETAL: * Extensive tracer avid osseous metastatic disease throughout the axial and imaged appendicular skeleton, as described. Engineering Supplies Sales: [employer] Transcribe Date/Time: Aug 17 2023 3:57P Dictated by : AURA SAMANO MD This examination was interpreted and the report reviewed and electronically signed by: CHUCK (more content not included)... Normal [facility] Comprehensive metabolic 2000 panelOrdered By: Mini Denis on 07-29-2023 Albumin [Mass/Vol] 3.8 g/dL Low 3.9 - 4.9 g/dL [facility] ALP [Catalytic activity/Vol] 292 U/L High 38 - 113 U/L [facility] ALT [Catalytic activity/Vol] 46 U/L 10 - 54 U/L [facility] Anion gap [Moles/Vol] 3 mmol/L Low 9 - 18 mmol/L [facility] AST [Catalytic activity/Vol] 24 U/L 14 - 40 U/L [facility] Bilirubin [Mass/Vol] 0.4 mg/dL 0.2 - 1 .3 mg/dL [facility] Calcium [Mass/Vol] 10.2 mg/dL 8.5 - 10. 2 mg/dL [facility] Chloride [Moles/Vol] 103 mmol/L 97 - 10 5 mmol/L [facility] CO2 [Moles/Vol] 31 mmol/L High 22 - 30 mmol/L [facility] Creatinine [Mass/Vol] 0.91 mg/dL 0.73 - 1.22 mg/dL [facility] GFR/1.73 sq M.predicted among non-blacks MDRD (S/P/Bld) [Vol rate/Area] 83 mL/min/{1.73_m2} - PINF [facility] Comment on above: Estimated Glomerular Filtration Rate (eGFR) is calculated using the 2020 CKD-EPI creatinine equation. This equation utilizes serum creatinine, sex, and age as parameters. The creatinine assay has traceable calibration to isotope dilution-mass spectrometry. Refer to KDIGO guidelines for clinical interpretation. In patients with unstable renal function, e.g. those with acute kidney injury, the eGFR may not accurately reflect actual GFR. Glucose [Mass/Vol] 255 mg/dL High 74 - 99 mg/dL [facility] Comment on above: The [place] Diab[employer] s Association (ADA) provides guidance for cutoff values for fasting glucose and random glucose. The ADA defines fasting as no caloric intake for at least 8 hours. Fasting plasma glucose results between 100 to 125 mg/dL indicate increased risk for diabetes (prediabetes). Fasting plasma glucose results greater than or equal to 126 mg/dL meet the criteria for diagnosis of diabetes. In the absence of unequivocal hyperglycemia, results should be confirmed by repeat testing. In a patient with classic symptoms of hyperglycemia or hyperglycemic crisis, random plasma glucose results greater than or equal to 200 mg/dL meet the criteria for diagnosis of diabetes. Reference: Standards of Medical Care in Diabetes 2016, [place] [employer]. Diabetes Care. 2016.39(Suppl 1). Interpretation and review of laboratory results Abnormal [facility] Potassium [Moles/Vol] 5.0 mmol/L 3.7 - 5.1 mmol/L [facility] Protein [Mass/Vol] 6.2 g/dL Low 6.3 - 8.0 g/dL [facility] Sodium [Moles/Vol] 137 mmol/L 136 - 144 mmol/L [facility] Urea nitrogen [Mass/Vol] 27 mg/dL High 9 - 24 mg/dL [facility] Absolute lymphocyte countOrd ered By: Anam Herrera on 07-21-2023 Lymphocytes Auto (Unsp spec) [#/Vol] 0.89 10*3/uL 0.83-4.51 [facility] Automated lymphocyte count a s percentage of total leukocytesOrdered By: Anam Herrera on 07-21-2023 Lymphocytes/100 WBC Auto (Unsp spec) 6.3 % 19-41 [facility] Basophil percentageOrdered B y: Anam Herrera on 07-21-2023 Basophils/100 WBC (Bld) 0.5 % 0-[address] [facility] Chloride [Moles/Vol] 103 mmol/L 98-107 [facility] Eosinophils/100 WBC (Bld) 0.1 % 0-5 [facility] Glucose [Mass/Vol] 156 mg/dL 74-106 [facility] Comment on above: Fasting Glucose resu lt greater than or equal to 126 mg/dL suggests DIABETES MELLITUS per A.D.A. criteria. Hemoglobin (Bld) [Mass/Vol] 12.5 g/dL 13.0-16.5 [facility] Lactate [Moles/Vol] 1.1 mmol/L 0.4-2.0 [facility] Monocytes/100 WBC (Bld) 18.1 % 0-[address] [facility] Neutrophils (Bld) [#/Vol] 10.5 10*3/uL 2.0-7.7 [facility] Neutrophils/100 WBC (Bld) 74.2 % 47-70 [facility] Potassium [Moles/Vol] 4.2 mmol/L 3.5-5.1 [facility] Sodium [Moles/Vol] 135 mmol/L 136-145 [facility] WBC (Bld) [#/Vol] 14.2 10*3/uL 4.4-11.0 [facility] Basophil percentage 0 SEEN /hpf 0-5 [facility] Bilirubin Test strip Ql (U)O rdered By: Anam Herrera on 07-21-2023 Bilirubin Ql (U) Negative Negative [facility] Blood manual differential co mment interpretation (narrative result)Ordered By: Anam Herrera on 07-21-2023 Manual differential comment Gabriel (Bld) [Interp] SCANNED [facility] Determination of erythrocyte mean corpuscular volume (MCV)Ordered By: Anam Herrera on 07-21-2023 MCV (RBC) [Entitic vol] 95.6 fL 80-[address] [facility] Erythrocyte distribution wid th ratioOrdered By: Anam Herrera on 07-21-2023 Erythrocyte distribution width (RBC) [Ratio] 14.6 % 11.6-14.6 [facility] Erythrocyte distribution wid th standard deviationOrdered By: Anam Herrera on 07-21-2023 Erythrocyte distribution width (RBC) [Entitic vol] 51.8 fL 35.1-43.9 [facility] Erythrocyte sedimentation ra teOrdered By: Anam Herrera on 07-21-2023 ESR (Bld) [Velocity] 9 mm/h 0-20 [facility] Hematocrit Auto (Bld) [Volum e fraction]Ordered By: Anam Herrera on 07-21-2023 Hematocrit (Bld) [Volume fraction] 39.5 % 40-54 [facility] Immature granulocytes/100 WB C Auto (Bld)Ordered By: Anam Herrera on 07-21-2023 Immature granulocytes/100 WBC (Bld) 0.800 % 0.0-0.9 [facility] Comment on above: IG% - Immature Granu locytes (promyelocytes, myelocytes and metamyelocytes) > 1% indicates that a LEFT SHIFT is Present. Ketones Test strip Ql (U)Ord ered By: Anam Herrera on 07-21-2023 Ketones Ql (U) Negative Negative [facility] Laboratory - Chemistry and C hemistry - challengeOrdered By: Anam Herrera on 07-21-2023 CK [Catalytic activity/Vol] 141 U/L 39-308 [facility] CO2 [Moles/Vol] 30.0 mmol/L 21.0-32.0 [facility] Urea nitrogen/Creatinine [Mass ratio] 17.0 mg/mg 10-20 [facility] Laboratory - Hematology and Cell countsOrdered By: Anam Herrera on 07-21-2023 MCH (RBC) [Entitic mass] 30.3 pg 27.0-32.0 [facility] MCHC (RBC) [Mass/Vol] 31.6 g/dL 32-36 [facility] Nucleated RBC/100 WBC (Bld) [Ratio] 0 % 0-5 [facility] Platelet mean volume (Bld) [Entitic vol] 10.3 fL 6.2-12.0 [facility] Platelets (Bld) [#/Vol] 221 10*3/uL 150-450 [facility] Laboratory - Microbiology an d Antimicrobial susceptibilityOrdered By: Anam Herrera on 07-21-2023 SARS-CoV-2 (COVID-19) RNA GRACIELA+probe Ql (Unsp spec) [facility] Mucus LM Ql (Urine sed)Order ed By: Anam Herrera on 07-21-2023 Mucus Ql (Urine sed) 0 SEEN /hpf [facility] Nitrite Test strip Ql (U)Ord ered By: Anam Herrera on 07-21-2023 Nitrite Ql (U) Negative Negative [facility] No Panel InformationOrdered By: Anam Herrera on 07-21-2023 C-Reactive Protein Extended Range 91.20 mg/L 0.0-3.0 [facility] Comment on above: C-Reactive Protein ( CRP) provides useful information for thediagnosis, therapy and monitoring of inflammatory processesand associated diseases. For the evaluation of Relative Riskfor Cardiovascular Disease, a High Sensitivity CRP (HSCRP)should be ordered. Estimated Creatinine Clearance Calc 47.63 ml/min [facility] Estimated GFR (MDRD) Amer 85 mL/min >60 [facility] Comment on above: GFR Calc Estimated GFR (MDRD) Non-Af Amer 71 mL/min >60 [facility] Comment on above: Non- GFR Calc Urine RBC 0 SEEN /hpf 0-5 [facility] Protein Test strip Ql (U)Ord ered By: Anam Herrera on 07-21-2023 Protein Ql (U) 30 mg/dl Negative [facility] RBC Auto (Bld) [#/Vol]Ordere d By: Anam Herrera on 07-21-2023 RBC (Bld) [#/Vol] 4.13 10*6/uL 4.6-6.2 [facility] Serum or plasma calcium good urement (mass/volume)Ordered By: Anam Herrera on 07-21-2023 Calcium [Mass/Vol] 9.2 mg/dL 8.5-10.1 [facility] Serum or plasma creatinine m easurement (mass/volume)Ordered By: Anam Herrera on 07-21-2023 Creatinine [Mass/Vol] 1.06 mg/dL 0.70-1.30 [facility] Comment on above: The validity of the calculated GFR & GFRAA in patients over 70 years has not been determined. Clinical correlation is essential. Serum or plasma urea nitroge n measurement (mass/volume)Ordered By: Anam Herrera on 07-21-2023 Urea nitrogen [Mass/Vol] 18 mg/dL 7-18 [facility] Squamous epithelial cells de tection in urine sediment by light microscopyOrdered By: Anam Herrera on 07-21-2023 Epithelial cells.squamous LM Ql (Urine sed) 0 SEEN /hpf 0-5 [facility] Thin prep Papanicolaou smear with manual screeningOrdered By: Anam Herrera on 07-21-2023 Thin prep Papanicolaou smear with manual screening 2 5-15 [facility] Urine blood detectionOrdered By: Anam Herrera on 07-21-2023 RBC Ql (U) 10 /ul Negative [facility] Urine clarityOrdered By: Cristiano Herrera on 07-21-2023 Clarity (U) Clear Clear [facility] Urine color determinationOrd ered By: Anam Herrera on 07-21-2023 Color (U) Yellow Yellow [facility] Urine glucose detectionOrder ed By: Anam Herrera on 07-21-2023 Glucose Ql (U) Normal mg/dl Normal [facility] Urine leukocyte esterase det ection by dipstickOrdered By: Anam Herrera on 07-21-2023 Leukocyte esterase Test strip Ql (U) 25 /ul Negative [facility] Urine pHOrdered By: Anam iqbal on 07-21-2023 pH (U) 5.0 [pH] 5.0 - 8.0 [facility] Urine sediment bacteria coun t by microscopy (number/high power field)Ordered By: Anam Herrera on 07-21-2023 Bacteria LM.HPF (Urine sed) [#/Area] 0 /[HPF] None Seen [facility] Urine specific gravity measu rementOrdered By: Anam Herrera on 07-21-2023 Specific gravity (U) [Rel density] 1.015 1.002-1.03 0 [facility] Urine urobilinogen measureme ntOrdered By: Anam Herrera on 07-21-2023 Urobilinogen Ql (U) Normal mg/dl Normal [facility] Basophil percentageOrdered B y: Sharyn Gonzalez on 05-09-2023 Bilirubin [Mass/Vol] 0.70 mg/dL 0.20-1.00 [facility] Comment on above: For patients on eltr ombopag therapy, use of Dimension Lyons TBIL is not recommended. Cholesterol [Mass/Vol] 95 mg/dL <200 [facility] Comment on above: <200 mg/dL Desirable 200-240 mg/dL Borderline >240 mg/dL High Risk Protein [Mass/Vol] 6.6 g/dL 6.4-8.2 [facility] Triglyceride [Mass/Vol] 111 mg/dL <[address] [facility] Comment on above: The drugs N-Acetylcy steine and Metamizole may falsely depress this assay.Serum Triglycerides Reference Interval Normal <150 mg/dL Borderline high 150 - 199 mg/dL High 200 - 499 mg/dL Very High > or = 500 mg/dL Direct bilirubinOrdered By: Sharyn Gonzalez on 05-09-2023 Bilirubin.direct [Mass/Vol] 0.16 mg/dL 0.00-0.30 [facility] Laboratory - Chemistry and C hemistry - challengeOrdered By: Sharyn Gonzalez on 05-09-2023 ALP [Catalytic activity/Vol] 205 U/L 45-117 [facility] ALT [Catalytic activity/Vol] 104 U/L 16-61 [facility] Cholesterol in HDL [Mass/Vol] 33 mg/dL >40 [facility] Comment on above: The drugs N-Acetylcy steine and Metamizole may falsely depress this assay. Reference Range HDL <40 mg/dL Low HDL Cholesterol HDL >or= 60 mg/dL High HDL Cholesterol Cholesterol in LDL [Mass/Vol] 40 mg/dL 0-130 [facility] Globulin (S) [Mass/Vol] 3.3 g/dL 2.2-4.[address] [facility] No Panel InformationOrdered By: Sharyn Gonzalez on 05-09-2023 VLDL Cholesterol 22 mg/dL 5-40 [facility] Thin prep Papanicolaou smear with manual screeningOrdered By: Sharyn Gonzalez on 05-09-2023 Thin prep Papanicolaou smear with manual screening 3.3 g/dL 3.2-5.0 [facility] Thin prep Papanicolaou smear with manual screening 71 U/L 15-37 [facility] Comment on above: Slight Hemolysis, Re sult may be falsely increased. Absolute lymphocyte countOrd ered By: Art Ernandez on 04-06-2023 Lymphocytes Auto (Unsp spec) [#/Vol] 2.20 10*3/uL 0.83-4.51 [facility] Automated lymphocyte count a s percentage of total leukocytesOrdered By: Art Ernandez on 04-06-2023 Lymphocytes/100 WBC Auto (Unsp spec) 18.7 % 19-41 [facility] Basophil percentageOrdered B y: Art Ernandez on 04-06-2023 Basophils/100 WBC (Bld) 1.0 % 0-[address] [facility] Chloride [Moles/Vol] 106 mmol/L 98-107 [facility] Eosinophils/100 WBC (Bld) 3.0 % 0-5 [facility] Glucose [Mass/Vol] 128 mg/dL 74-106 [facility] Comment on above: Fasting Glucose resu lt greater than or equal to 126 mg/dL suggests DIABETES MELLITUS per A.D.A. criteria. Hemoglobin (Bld) [Mass/Vol] 14.0 g/dL 13.0-16.5 [facility] Monocytes/100 WBC (Bld) 15.7 % 0-[address] [facility] Neutrophils (Bld) [#/Vol] 7.2 10*3/uL 2.0-7.7 [facility] Neutrophils/100 WBC (Bld) 61.1 % 47-70 [facility] Potassium [Moles/Vol] 4.0 mmol/L 3.5-5.1 [facility] Sodium [Moles/Vol] 139 mmol/L 136-145 [facility] WBC (Bld) [#/Vol] 11.7 10*3/uL 4.4-11.0 [facility] Blood manual differential co mment interpretation (narrative result)Ordered By: Atr Ernandez on 04-06-2023 Manual differential comment Gabriel (Bld) [Interp] SCANNED [facility] Comment on above: MONOCYTOSIS PRESENT Determination of erythrocyte mean corpuscular volume (MCV)Ordered By: Art Ernandez on 04-06-2023 MCV (RBC) [Entitic vol] 94.7 fL 80-[address] [facility] Erythrocyte distribution wid th ratioOrdered By: Art Ernandez on 04-06-2023 Erythrocyte distribution width (RBC) [Ratio] 14.2 % 11.6-14.6 [facility] Erythrocyte distribution wid th standard deviationOrdered By: Art Ernandez on 04-06-2023 Erythrocyte distribution width (RBC) [Entitic vol] 49.1 fL 35.1-43.9 [facility] Hematocrit Auto (Bld) [Volum e fraction]Ordered By: Art Ernandez on 04-06-2023 Hematocrit (Bld) [Volume fraction] 42.8 % 40-54 [facility] Immature granulocytes/100 WB C Auto (Bld)Ordered By: rAt Ernandez on 04-06-2023 Immature granulocytes/100 WBC (Bld) 0.500 % 0.0-0.9 [facility] Comment on above: IG% - Immature Granu locytes (promyelocytes, myelocytes and metamyelocytes) > 1% indicates that a LEFT SHIFT is Present. Laboratory - Chemistry and C hemistry - challengeOrdered By: Art Ernandez on 04-06-2023 CO2 [Moles/Vol] 29.0 mmol/L 21.0-32.0 [facility] Urea nitrogen/Creatinine [Mass ratio] 16.7 mg/mg 10-20 [facility] Laboratory - Hematology and Cell countsOrdered By: Art Ernandez on 04-06-2023 MCH (RBC) [Entitic mass] 31.0 pg 27.0-32.0 [facility] MCHC (RBC) [Mass/Vol] 32.7 g/dL 32-36 [facility] Nucleated RBC/100 WBC (Bld) [Ratio] 0 % 0-5 [facility] Platelets (Bld) [#/Vol] 285 10*3/uL 150-450 [facility] No Panel InformationOrdered By: Art Ernandez on 04-06-2023 D-Dimer Quantitative (PE/DVT) 0.73 FEU/ug/m 0.27-0.49 [facility] Comment on above: D-Dimer ELEVATED (>0 .49): Additional studies and clinicalassessments are indicated to conclude diagnosis of:Deep Vein Thrombosis (DVT) or Pulmonary Embolism (PE)CRITICAL VALUE VERIFIED. CALLED TO 0515 Sukhdev Tucker.RESULTS READ BACK BY SAME. Estimated Creatinine Clearance Calc 44.29 ml/min [facility] Estimated GFR (MDRD) Amer 78 mL/min >60 [facility] Comment on above: GFR Calc Estimated GFR (MDRD) Non-Af Amer 65 mL/min >60 [facility] Comment on above: Non- GFR Calc Troponin I High Sensitivity 17 pg/mL 3.0-78.0 [facility] Comment on above: Please Note: New Juliana t Units and Gender Specific Reference Ranges. For more information see Policy Stat Procedure [facility]ons High Sensitivity Troponin (TNIH) and attachments. Platelet mean volume Juvenal-Ec ker (Bld) [Entitic vol]Ordered By: Art Ernandez on 04-06-2023 Platelet mean volume (Bld) [Entitic vol] 10.5 fL 6.2-12.0 [facility] RBC Auto (Bld) [#/Vol]Ordere d By: Art Ernandez on 04-06-2023 RBC (Bld) [#/Vol] 4.52 10*6/uL 4.6-6.2 [facility] Review by pathologistOrdered By: Art Ernandez on 04-06-2023 Pathologist review Gabriel (Unsp spec) [Interp] Abby hernández [facility] Pathologist review Gabriel (Unsp spec) [Interp] Reviewed [facility] Comment on above: Previous reported re sult: Abby hernández Edited by: RGOOD on 04/06/23:1435Leukocytosis.Macrocytosis.Clinical correlation necessary.Howard Ruggiero M.D. 04/06/23 AMENDED REPORT 04/06/23 1435 PATH REV previously reported as: Abby hernández Serum or plasma calcium good urement (mass/volume)Ordered By: Art Ernandez on 04-06-2023 Calcium [Mass/Vol] 9.3 mg/dL 8.5-10.1 [facility] Serum or plasma creatinine m easurement (mass/volume)Ordered By: Art Ernandez on 04-06-2023 Creatinine [Mass/Vol] 1.14 mg/dL 0.70-1.30 [facility] Comment on above: The validity of the calculated GFR & GFRAA in patients over 70 years has not been determined. Clinical correlation is essential. Serum or plasma urea nitroge n measurement (mass/volume)Ordered By: Art Ernandez on 04-06-2023 Urea nitrogen [Mass/Vol] 19 mg/dL 7-18 [facility] Thin prep Papanicolaou smear with manual screeningOrdered By: Art Ernandez on 04-06-2023 Thin prep Papanicolaou smear with manual screening 4 5-15 [facility] Erythrocyte sedimentation ra teOrdered By: Mariano Ocampo on 12-09-2022 ESR (Bld) [Velocity] 27 mm/h 0-20 [facility] Serum or plasma C reactive p rotein measurement (mass/volume)Ordered By: Mariano Ocampo on 12-09-2022 CRP [Mass/Vol] 51.20 mg/L 0.0-3.0 [facility] Comment on above: C-Reactive Protein ( CRP) provides useful information for thediagnosis, therapy and monitoring of inflammatory processesand associated diseases. For the evaluation of Relative Riskfor Cardiovascular Disease, a High Sensitivity CRP (HSCRP)should be ordered. Absolute lymphocyte countOrd ered By: Hernán Spence on 12-06-2022 Lymphocytes Auto (Unsp spec) [#/Vol] 1.09 10*3/uL 0.83-4.51 [facility] Basophil percentageOrdered B y: Hernán Spence on 12-06-2022 Basophils/100 WBC (Bld) 0.6 % 0-1 [facility] Chloride [Moles/Vol] 107 mmol/L 98-107 [facility] Eosinophils/100 WBC (Bld) 1.1 % 0-5 [facility] Glucose [Mass/Vol] 162 mg/dL 74-106 [facility] Comment on above: Fasting Glucose resu lt greater than or equal to 126 mg/dL suggests DIABETES MELLITUS per A.D.A. criteria. Neutrophils (Bld) [#/Vol] 9.6 10*3/uL 2.0-7.7 [facility] Neutrophils/100 WBC (Bld) 79.0 % 47-70 [facility] Potassium [Moles/Vol] 4.2 mmol/L 3.5-5.1 [facility] Sodium [Moles/Vol] 139 mmol/L 136-145 [facility] WBC (Bld) [#/Vol] 12.1 10*3/uL 4.4-11.0 [facility] Blood erythrocytes count (nu mber/volume)Ordered By: Hernán Spence on 12-06-2022 RBC (Bld) [#/Vol] 4.28 10*6/uL 4.6-6.2 [facility] Blood hemoglobin measurement (mass/volume)Ordered By: Hernán Spence on 12-06-2022 Hemoglobin (Bld) [Mass/Vol] 13.1 g/dL 13.0-16.5 [facility] Blood lymphocytes/100 leukoc ytesOrdered By: Hernán Spence on 12-06-2022 Lymphocytes/100 WBC (Bld) 9.0 % 19-41 [facility] Blood monocytes/100 leukocyt esOrdered By: Hernán Spence on 12-06-2022 Monocytes/100 WBC (Bld) 9.5 % 0-[address] [facility] Blood platelet mean volumeOr dered By: Hernán Spence on 12-06-2022 Platelet mean volume (Bld) [Entitic vol] 10.3 fL 6.2-12.0 [facility] Determination of erythrocyte mean corpuscular volume (MCV)Ordered By: Hernán Spence on 12-06-2022 MCV (RBC) [Entitic vol] 96.7 fL 80-[address] [facility] Hematocrit Auto (Bld) [Volum e fraction]Ordered By: Hernán Spence on 12-06-2022 Hematocrit (Bld) [Volume fraction] 41.4 % 40-54 [facility] Laboratory - Chemistry and C hemistry - challengeOrdered By: Hernán Spence on 12-06-2022 CO2 [Moles/Vol] 27.0 mmol/L 21.0-32.0 [facility] Urea nitrogen/Creatinine [Mass ratio] 17.2 mg/mg 10-20 [facility] Laboratory - Hematology and Cell countsOrdered By: Hernán Spence on 12-06-2022 Erythrocyte distribution width (RBC) [Entitic vol] 50.6 fL 35.1-43.9 [facility] Erythrocyte distribution width (RBC) [Ratio] 14.2 % 11.6-14.6 [facility] Immature granulocytes/100 WBC (Bld) 0.800 % 0.0-0.9 [facility] Comment on above: IG% - Immature Granu locytes (promyelocytes, myelocytes and metamyelocytes) > 1% indicates that a LEFT SHIFT is Present. MCH (RBC) [Entitic mass] 30.6 pg 27.0-32.0 [facility] Nucleated RBC/100 WBC (Bld) [Ratio] 0 % 0-5 [facility] MCHC Auto (RBC) [Mass/Vol]Or dered By: Hernán Spence on 12-06-2022 MCHC (RBC) [Mass/Vol] 31.6 g/dL 32-36 [facility] No Panel InformationOrdered By: Hernán Spence on 12-06-2022 Troponin I High Sensitivity 13 pg/mL 3.0-78.0 [facility] Comment on above: Please Note: New [place] t Units and Gender Specific Reference Ranges. For more information see Policy Stat Procedure [facility] High Sensitivity Troponin (TNIH) and attachments. Estimated Creatinine Clearance Calc 51.00 ml/min [facility] Estimated GFR (MDRD) Amer 93 mL/min >60 [facility] Comment on above: GFR Calc Estimated GFR (MDRD) Non-Af Amer 76 mL/min >60 [facility] Comment on above: Non- GFR Calc Platelets bldOrdered By: Sallie Spence on 12-06-2022 Platelets (Bld) [#/Vol] 269 10*3/uL 150-450 [facility] Serum or plasma calcium good urement (mass/volume)Ordered By: Hernán Spence on 12-06-2022 Calcium [Mass/Vol] 9.3 mg/dL 8.5-10.1 [facility] Serum or plasma creatinine m easurement (mass/volume)Ordered By: Hernán Spence on 12-06-2022 Creatinine [Mass/Vol] 0.99 mg/dL 0.70-1.30 [facility] Comment on above: The validity of the calculated GFR & GFRAA in patients over 70 years has not been determined. Clinical correlation is essential. Serum or plasma urea nitroge n measurement (mass/volume)Ordered By: Hernán Spence on 12-06-2022 Urea nitrogen [Mass/Vol] 17 mg/dL 7-18 [facility] Thin prep Papanicolaou smear with manual screeningOrdered By: Hernán Spence on 12-06-2022 Thin prep Papanicolaou smear with manual screening 5 5-15 [facility] 36on 10-18-2022 36 Faxed rehab order th at is signed by Dr. Ayon to [phone] [facility] 36on 10-15-2022 36 Faxed rehab order, Riana justin office note and PCI report to [facility] at [phone], spoke with patients and she is aware that I was faxing info [facility] 36on 10-13-2022 36 Spouse LMVM stating that Dr. Ayon did surgery and cardiac rehab order was to be sent to [facility]. States order not received. [facility] 36on 09-30-2022 36 Faxed rehab order an d office note to [facility] Office Visiton 09-30-2022 Follow-up visit [id number] Everton Pardo 1935 Date Provider Department Center 09/30/2022 ALOK ELIZALDE [facility]INA [facility] [address] Family History Problem Relation Age of Onset Heart attack Father 60 Heart disease Sister Heart disease Brother Family Status - Relation Status Age at Father Sister Brother Level of Service:36172 RI OFFICE/OUTPATIENT ESTABLISHED MOD MDM 30-39 MIN Reason for Visit and Comments: Coronary Artery Disease [187] - S/p multivessel PCI [facility] Progress Noteon 09-30-2022 Progress Note [facility] [address] [facility] [address] Dept: [phone] Dept Loc: [phone] DATE of SERVICE: 09/30/2022 DATE of : 1935 PRIMARY CARE PHYSICIAN: Mariano Ocampo Visit type: ESTABLISHED Chief Complaint: Chief Complaint Patient presents with Coronary Artery Disease S/p multivessel PCI Assessment and Plan 1. 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 Decrease dose and he will be seen by Dr Gee in 4-6 weeks. 4. Mixed hyperlipidemia Continue statin therapy 5. MARISOL (obstructive sleep apnea) Unable to tolerate CPAP Followup: Follow up for prn; will schedule followup with Dr Gee in 4 weeks. Subjective History of Present Illness: Everton Pardo is a 86 y.o. male with [...] and decreased activity tolerance) by Dr Gee ([facility]). Pt preferred percutaneous intervention vs CABG. [...] wishes to participate in cardiac rehab in [place]. Has been making dietary changes with weight [...] 09/20/2022 Performed by Clayton Ayon MD at [facility] Cardiac Cath/EP Lab CARDIAC CATHETERIZATION N/A 09/20/2022 Performed by Clayton Ayon MD at [facility] Cardiac Cath/EP Lab PROSTATE BIOPSY [...] Disp: 45 tablet, Rfl: 3 Review of Systems (more content not included)... Normal [facility] Basic metabolic 1998 panelon 09-21-2022 Anion gap [Moles/Vol] 10 mmol/L 3 - 13 mmol/L [facility] Calcium [Mass/Vol] 9.1 mg/dL 8.4 - 10. 4 mg/dL [facility] Chloride [Moles/Vol] 107 mmol/L 98 - 10 7 mmol/L [facility] CO2 [Moles/Vol] 22 mmol/L 22 - 30 mmol/L [facility] Creatinine [Mass/Vol] 0.97 mg/dL 0.66 - 1.25 mg/dL [facility] GFR/1.73 sq M.predicted MDRD (S/P/Bld) [Vol rate/Area] 77.0 mL/min/{1.73_m2} - PINF [facility] Comment on above: Calculation based on the Chronic Kidney Disease Epidemiology Collaboration (CKD-EPI) equation refit without adjustment for race Glucose [Mass/Vol] 131 mg/dL High 70 - 100 mg/dL [facility] Potassium [Moles/Vol] 4.4 mmol/L 3.5 - 5.1 mmol/L [facility] Sodium [Moles/Vol] 139 mmol/L 135 - 145 mmol/L [facility] Urea nitrogen [Mass/Vol] 21 mg/dL High 9 - 20 mg/dL [facility] CBC panel Auto (Bld)Ordered By: Grzegorz Thao on 09-21-2022 Erythrocyte distribution width (RBC) [Ratio] 13.7 % 11.5 - 14.5 % [facility] Hematocrit (Bld) [Volume fraction] 39.8 % Low 40.0 - 52.0 % [facility] Hemoglobin (Bld) [Mass/Vol] 13.1 g/dL 13.0 - 18.0 g/dL [facility] Interpretation and review of laboratory results Abnormal [facility] MCH (RBC) [Entitic mass] 31.2 pg 26.0 - 34.0 pg [facility] MCHC (RBC) [Mass/Vol] 32.8 % 32.0 - 36.0 % [facility] MCV (RBC) [Entitic vol] 95.2 fL 80.0 - 98.0 fL [facility] Platelet mean volume (Bld) [Entitic vol] 8.8 fL 7.4 - 12.4 fL [facility] Platelets (Bld) [#/Vol] 241 10*3/uL 140 - 440 10*3/uL [facility] RBC (Bld) [#/Vol] 4.18 10*6/uL Low 4.40 - 5.90 10*6/uL [facility] WBC (Bld) [#/Vol] 13.9 10*3/uL High 3.6 - 10.7 10*3/uL [facility] ECG 12 leadOrdered By: Sammi Randolph on 09-21-2022 Heart rate 60 /min bpm [employer] Work Phone: P [place] 53 degrees [employer] Work Phone: [phone] RI Interval 229 ms [employer] Work Phone: [phone] QRS [place] 52 degrees [employer] Work Phone: [phone] QRSD Interval 83 ms [employer] Work Phone: [phone] QT Interval 442 ms [employer] Work Phone: [phone] QTC Interval 442 ms [employer] Work Phone: T Wave [place] 129 degrees [employer] Work Phone: [employer] Work Phone: ECG 12 leadon 09-21-2022 Sinus rhythm Prolonged RI interval Repol abnrm suggests ischemia, lateral leads Minimal ST elevation, inferior leads Electronically Signed On 09-21-2022 11:12:22 EDT by Sammi Randolph CV Sammi Sow MD - 09/21/2022 IMPRESSION: Sinus rhythm Prolonged RI interval Repol abnrm suggests ischemia, lateral leads Minimal ST elevation, inferior leads Electronically Signed On 09-21-2022 11:12:22 EDT by Sammi Randolph [facility] ECG 12-LEADon 09-21-2022 ECG 12-LEAD IMPRESSION: Sinus rhythm Prolonged RI interval Repol abnrm suggests ischemia, lateral leads Minimal ST elevation, inferior leads Electronically Signed On 09-21-2022 11:12:22 EDT by Sammi Randolph Normal [facility] SHS Lipid 1996 panelon 3 Cholesterol [Mass/Vol] 103 mg/dL NINF - 200 mg/dL [facility] Cholesterol in HDL [Mass/Vol] 24 mg/dL Low 40 - 60 mg/dL [facility] Cholesterol in LDL [Mass/Vol] 58 mg/dL 0 - <100 [facility] Cholesterol.total/Mell sterol in HDL [Mass ratio] 4 {ratio} [facility] Comment on above: Ref Range: < 3 Low Risk for CHD 3-6 Mod Risk for CHD > 6 High Risk for CHD Triglyceride [Mass/Vol] 107 mg/dL NINF - 150 mg/dL [facility] No Panel Informationon 09-21 Interpretation and review of laboratory results Abnormal [facility] Performed by: [facility] Rover [facility], [address] [facility] [address] CLIA ID: [id number] [facility] Interpretation and review of laboratory results Abnormal [facility] Nursing Noteon 09-21-2022 Nursing Note Ok for discharge, hl and tele have been discontinued. Reviewed home going instructions. states she understands and has no questions. Has belongings, scripts sent to pt pharmacy. Normal [facility] POCT Kena 09-21-2022 POCT ACT 323 High [facility] POCT ACT 294 High [facility] POCT ACT 242 High [facility] POCT ACT 180 High [facility] Interpretation and review of laboratory results Abnormal [facility] POCT ACT 163 High [facility] Performed by: [facility], [address] [place] [id number] CLIA ID: [id number] [facility] Anesthesia Noteon 09-20-2022 Anesthesia Note Sedation Plan ASA class 3 - patient [...] and proceed to administer sedation as planned. Normal [facility] Cardiac catheterization stud yon 09-20-2022 Indication: Patient with Accelerating exertional angina and known multivessel CAD, brought to the lab today for planned PCI. Poor candidate for CABG due to advanced age. Coronary Arteriography Dominance: Right Left Main: Normal [...] longer if tolerates. ASA indefinitely. Cardiac rehabilitation Coronary Findings Diagnostic Dominance: Right Left Anterior Descending: Prox LAD lesion, 95% stenosed. First Diagonal Branch: 1st Diag lesion, 90% stenosed. Lateral First Obtuse Marginal Branch: The vessel is moderate in size. Lat 1st Mrg lesion, 90% stenosed. The stenosis was measured by a visual reading. First Right Posterolateral Branch: 1st RPL lesion, 90% stenosed. Intervention Prox LAD lesion: Angioplasty: Angioplasty was performed prior to stent deployment. Balloon inserted, inflated, placed across lesion and removed. The balloon used was a CATH NC TREK RAINA 3.85E10HT. Balloon inflated using mutiple inflation technique. Balloon 1: Inflation#1: Pressure = 16 paola; Duration = 10 sec. Supplies Used: CATH NC TREK RAINA 3.64W93IL Stent: Type of stent: drug-eluting. The stent used was a STENT COR SKYPOINT 3.95D28DS. Actions taken: stent inserted, stent placed across lesion and balloon removed. The stent was fully expanded. Inflation#1: Pressure = 14 paola; Duration = 20 sec. Inflation#2: Pressure = 16 paola; Duration = 20 sec. Supplies Used: STENT COR SKYPOINT 3.45V55UK Stent: Type of stent: drug-eluting. The stent used was a STENT COR SKYPOINT 3.65D63IO. Actions taken: stent inserted, stent placed across lesion and balloon removed. The stent was fully expanded. Inflation#1: Pressure = 16 paola; Duration = 20 sec. Inflation#2: Pressure = 18 paola; Duration = 18 sec. Inflation#3: Pressure = 18 paola; Duration = 18 sec. Supplies Used: STENT COR SKYPOINT 3.65Q58MI Post-Intervention Lesion Assessment: The guidewire crossed the lesion. Device was deployed. The pre-interventional distal flow is normal (TINO 3). Post-intervention TINO flow is 3. There were no complications. Ultrasound (IVUS) was performed. There is a 0% residual stenosis post intervention. 1st Diag lesion: Angioplasty: Angioplasty was performed prior to stent deployment. Balloon inserted, inflated, placed across lesion and removed. Balloon inflated using mutiple inflation technique. Inflation summary: Overall max pressure = 14 paola; Overall max duration = 35 sec; Balloon 1: Inflation#1: Pressure = 14 paola; Duration = 18 sec. Supplies Used: CATH BLL (more content not included)... CV [facility] Progress Noteon 09-20-2022 Progress Note Checked on pt s/p PC I. states he just fell asleep. States he [...] morning. Will educate pt in the morning. Normal [facility] 36on 09-17-2022 36 Prep for proc complete. Normal [facility] 36 PCI 09/20/2022 @ [address] Ayon Dx: CAD H&P 09/16/2022 (KS) EKG 09/08/2022 (media tab) CBC, BMP 09/08/2022 IVF 0.9% NSS @ KVO Benadryl 25 mg po 1 hour before Valium 5 mg po 1 hour before Normal [facility] Office Visiton 09-16-2022 Follow-up visit [id number] Everton Pardo 1935 Date Provider Department Center 09/16/2022 [id number] AYON [facility] RAINA SHMGCV [address] Ar Family History Problem Relation Age of Onset Heart attack Father 60 Heart disease Sister Heart disease Brother Family Status - Relation Status Age at Father Sister Brother Level of Service:29844 RI OFFICE/OUTPATIENT NEW MODERATE MDM 45-59 MINUTES Reason for Visit and Comments: New Patient [542] - Consult for PCI Shortness of Breath [718822] Chest Pain [867527] Normal [facility] PATINSon 09-16-2022 [facility] [address] [facility] [address] Dept: [phone] Dept You are scheduled for LHC with Dr. Clayton Ayon on 09/20/2022 at 10 am Report to [facility] by 830 am You can park in the [address] Deck or use [employer] parking (for a nominal fee of $7-8) and enter the hospital using the [address] across from the parking deck You will need a designated box truck driver for the day of your procedure [...] the office if you have any questions. Normal [facility] Progress Noteon 09-16-2022 Progress Note [facility] Cardiov ascular Medicine [facility] [address] [facility] [address] Dept: [phone] Dept Loc: [phone] DATE of SERVICE: 09/16/22 TIME of SERVICE: 4:25 PM DATE of : 1935 PRIMARY CARE PHYSICIAN: Mariano Ocampo Visit type: New patient Subjective Chief Complaint: Chief Complaint Patient presents with New Patient Consult for PCI Shortness of Breath Chest Pain History of Present Illness: Everton Pardo is a 86 y.o. male cardiac risk factors positive for hypertension, hyperlipidemia and family history of premature CAD. Negative for cigarette smoking or diabetes mellitus. Past medical history: Hard of hearing with hearing aids. August 2022 carotid duplex shows less than 50% stenoses bilaterally. He does have MARISOL but is intolerant of CPAP. He is a patient of Dr. Jasper Gee from [place]. Over the past several years he has [...] in the past. No prior history of MN, CVA, rheumatic fever. He thinks he may [...] Left Ear: External ear normal. Ears: Comments: AUGUSTINE - wearing hearing aides Nose: Nose normal. [...] Status: He is alert and oriented to per (more content not included)... Normal [facility] Progress Note Patient of Dr. Gee referred to [facility] cardiology for PCI s/p LHC done in [place] showing multivessel coronary disease. Normal [facility] Absolute lymphocyte countOrd ered By: Jasper Gee on 09-08-2022 Lymphocytes Auto (Unsp spec) [#/Vol] 1.55 10*3/uL 0.83-4.51 [facility] Basophil percentageOrdered B y: Jasper Gee on 09-08-2022 Basophils/100 WBC (Bld) 0.9 % 0-[address] [facility] Chloride [Moles/Vol] 111 mmol/L 98-107 [facility] Eosinophils/100 WBC (Bld) 1.1 % 0-5 [facility] Glucose [Mass/Vol] 95 mg/dL 74-106 [facility] Neutrophils (Bld) [#/Vol] 7.5 10*3/uL 2.0-7.7 [facility] Neutrophils/100 WBC (Bld) 72.4 % 47-70 [facility] Potassium [Moles/Vol] 4.5 mmol/L 3.5-5.1 [facility] Sodium [Moles/Vol] 141 mmol/L 136-145 [facility] WBC (Bld) [#/Vol] 10.3 10*3/uL 4.4-11.0 [facility] Blood erythrocytes count (nu mber/volume)Ordered By: Jasper Gee on 09-08-2022 RBC (Bld) [#/Vol] 4.45 10*6/uL 4.6-6.2 [facility] Blood hemoglobin measurement (mass/volume)Ordered By: Jasper Gee on 09-08-2022 Hemoglobin (Bld) [Mass/Vol] 13.9 g/dL 13.0-16.5 [facility] Blood lymphocytes/100 leukoc ytesOrdered By: Jasper Gee on 09-08-2022 Lymphocytes/100 WBC (Bld) 15.0 % 19-41 [facility] Blood monocytes/100 leukocyt esOrdered By: Jasper Gee on 09-08-2022 Monocytes/100 WBC (Bld) 9.9 % 0-[address] [facility] Blood platelet mean volumeOr dered By: Jasper Gee on 09-08-2022 Platelet mean volume (Bld) [Entitic vol] 10.0 fL 6.2-12.0 [facility] Determination of erythrocyte mean corpuscular volume (MCV)Ordered By: Jasper Gee on 09-08-2022 MCV (RBC) [Entitic vol] 96.4 fL 80-[address] [facility] Hematocrit Auto (Bld) [Volum e fraction]Ordered By: Jasper Gee on 09-08-2022 Hematocrit (Bld) [Volume fraction] 42.9 % 40-54 [facility] Laboratory - Chemistry and C hemistry - challengeOrdered By: Jasper Gee on 09-08-2022 CO2 [Moles/Vol] 29.0 mmol/L 21.0-32.0 [facility] Urea nitrogen/Creatinine [Mass ratio] 19.2 mg/mg 10-20 [facility] - Hematology and Cell countsOrdered By: Jasper Gee on 09-08-2022 Erythrocyte distribution width (RBC) [Entitic vol] 47.4 fL 35.1-43.9 [facility] Erythrocyte distribution width (RBC) [Ratio] 13.4 % 11.6-14.6 [facility] Immature granulocytes/100 WBC (Bld) 0.700 % 0.0-0.9 [facility] Comment on above: IG% - Immature Granu locytes (promyelocytes, myelocytes and metamyelocytes) > 1% indicates that a LEFT SHIFT is Present. MCH (RBC) [Entitic mass] 31.2 pg 27.0-32.0 [facility] Nucleated RBC/100 WBC (Bld) [Ratio] 0 % 0-5 [facility] MCHC Auto (RBC) [Mass/Vol]Or dered By: Jasper Gee on 09-08-2022 MCHC (RBC) [Mass/Vol] 32.4 g/dL 32-36 [facility] No Panel InformationOrdered By: Jasper Gee on 09-08-2022 Estimated GFR (MDRD) Amer 87 mL/min >60 [facility] Comment on above: GFR Calc Estimated GFR (MDRD) Non-Af Amer 72 mL/min >60 [facility] Comment on above: Non- GFR Calc Platelets bldOrdered By: Stewart Gee on 09-08-2022 Platelets (Bld) [#/Vol] 273 10*3/uL 150-450 [facility] Serum or plasma calcium good urement (mass/volume)Ordered By: Jasper Gee on 09-08-2022 Calcium [Mass/Vol] 9.2 mg/dL 8.5-10.1 [facility] Serum or plasma creatinine m easurement (mass/volume)Ordered By: Jasper Gee on 09-08-2022 Creatinine [Mass/Vol] 1.04 mg/dL 0.70-1.30 [facility] Comment on above: The validity of the calculated GFR & GFRAA in patients over 70 years has not been determined. Clinical correlation is essential. Serum or plasma urea nitroge n measurement (mass/volume)Ordered By: Jasper Gee on 09-08-2022 Urea nitrogen [Mass/Vol] 20 mg/dL 7-18 [facility] Thin prep Papanicolaou smear with manual screeningOrdered By: Jasper Gee on 09-08-2022 Thin prep Papanicolaou smear with manual screening 1 5-15 [facility] XR Chest PA and Lateralon 11 -08-2021 IMPRESSION: No acute radiographic abnormality. [employer] Sales: [employer] Transcribe Date/Time: Jan 19 2021 5:30P Dictated by : JAY SALGADO MD This examination was interpreted and the report reviewed and electronically signed by: JAY SALGADO MD on Jan 19 2021 5:34PM [facility] DIVISION OF RADIOLOGY * * *Final Report* * * DATE OF EXAM: Jan 19 2021 5:05PM WOX [id number] - XR CHEST 2V FRONTAL/LAT / PROCEDURE REASON: multiple diagnoses * * * * Physician Interpretation * * * * EXAMINATION: CHEST RADIOGRAPH (2 VIEW FRONTAL & LATERAL) CLINICAL HISTORY: Acute pain of right shoulder Abnormal lung sounds MQ: XC2_6 EXAM DATE/TIME: 01/19/2021 5:05 PM COMPARISON: 12/14/2018 RESULT: Lines, tubes, and devices: None. Lungs and pleura: No consolidation. No lung mass. No pleural effusion. No pneumothorax. Minimal stable atelectasis or fibrosis at the left base Cardiomediastinal silhouette: Normal cardiomediastinal silhouette. Bones and soft tissues: Unremarkable. DIVISION OF RADIOLOGY Provider, [facility] - 01/19/2021 * * *Final Report* * * DATE OF EXAM: Jan 19 2021 5:05PM WOX [id number] - XR CHEST 2V FRONTAL/LAT / PROCEDURE REASON: multiple diagnoses * * * * Physician Interpretation * * * * EXAMINATION: CHEST RADIOGRAPH (2 VIEW FRONTAL & LATERAL) CLINICAL HISTORY: Acute pain of right shoulder Abnormal lung sounds MQ: XC2_6 EXAM DATE/TIME: 01/19/2021 5:05 PM COMPARISON: 12/14/2018 RESULT: Lines, tubes, and devices: None. Lungs and pleura: No consolidation. No lung mass. No pleural effusion. No pneumothorax. Minimal stable atelectasis or fibrosis at the left base Cardiomediastinal silhouette: Normal cardiomediastinal silhouette. Bones and soft tissues: Unremarkable. IMPRESSION IMPRESSION: No acute radiographic abnormality. [employer] Sales: [employer]ITA Transcribe Date/Time: Jan 19 2021 5:30P Dictated by : JAY SALGADO MD This examination was interpreted and the report reviewed and electronically signed by: JAY SALGADO MD on Jan 19 2021 5:34PM EST [facility] Radiology Study observation (narrative) Mónica roberts [facility] XR Chest PA and LateralOrder ed By: [facility] Provider on 01-19-2021 [facility] Vital Signs Date Time Vital Sign Value Performing Clinician Facility 08-07-2024 06:43-0400 Body height 170.[address] Mariano Ocampo MD Work Phone: [phone] [place] [address] 08-07-2024 06:43-0400 Body mass index (BMI) [Ratio] 25 kg/m2 Dr. Mariano Ocampo MD Work Phone: [phone] [place] [address] 08-07-2024 06:43-0400 Body weight 72.[address] Mariano Ocampo MD Work Phone: [phone] [place] [address] 08-07-2024 06:43-0400 Diastolic blood pressure 80 mm[Hg] Dr. Mariano Ocampo MD Work Phone: [phone] [place] [address] 08-07-2024 06:43-0400 Heart rate 74 /min Dr. Mariano Ocampo MD Work Phone: [phone] [place] [address] 08-07-2024 06:43-0400 Respiratory rate 18 /min Dr. Mariano Ocampo MD Work Phone: [phone] [place] [address] 08-07-2024 06:43-0400 SaO2% (BldA) [Mass fraction] 100 % Dr. Mariano Ocampo MD Work Phone: [phone] [place] [address] 08-07-2024 06:43-0400 Systolic blood pressure 122 mm[Hg] Dr. Mariano Ocampo MD Work Phone: [phone] [place] [address] 07-18-2024 14:10-0400 Body mass index (BMI) [Ratio] 25.76 kg/m2 Clayton Gill MD Work Phone: [facility] 07-18-2024 14:10-0400 Body temperature 97.2 [degF] Clayton Gill MD Work Phone: [facility] 07-18-2024 14:10-0400 Body weight 74.6 kg Clayton Gill MD Work Phone: [facility] 07-18-2024 14:100400 Diastolic blood pressure 78 mm[Hg] Clayton Gill MD Work Phone: [facility] 07-18-2024 14:100400 Heart rate 64 /min Clayton Gill MD Work Phone: [facility] 07-18-2024 14:100400 Respiratory rate 18 /min Clayton Gill MD Work Phone: [facility] 07-18-2024 14:100400 SaO2% (BldA) [Mass fraction] 99 % Clayton Gill MD Work Phone: [facility] 07-18-2024 14:10-0400 Systolic blood pressure 128 mm[Hg] Clayton Gill MD Work Phone: [facility] 06-05-2024 10:130400 Body height 170.2 cm Mariano Ocampo MD Work Phone: [facility] 06-05-2024 10:130400 Body mass index (BMI) [Ratio] 26.38 kg/m2 Mariano Ocampo MD Work Phone: [facility] 06-05-2024 10:130400 Body temperature 96.4 [degF] Mariano Ocampo MD Work Phone: [facility] 06-05-2024 10:130400 Body weight 76.4 kg Mariano Ocampo MD Work Phone: [facility] 06-05-2024 10:130400 Diastolic blood pressure 58 mm[Hg] Mariano Ocampo MD Work Phone: [facility] 06-05-2024 10:13-0400 Heart rate 60 /min Mariano Ocampo MD Work Phone: [facility] 06-05-2024 10:130400 Respiratory rate 16 /min Mariano Ocampo MD Work Phone: [facility] 06-05-2024 10:13-0400 Systolic blood pressure 112 mm[Hg] Mariano Ocampo MD Work Phone: [facility] 05-10-2024 09:39-0500 Body mass index (BMI) [Ratio] 27 kg/m2 Master Guerra MD Work Phone: [facility] 05-10-2024 09:39-0500 Body temperature 97.2 [degF] Master Guerra MD Work Phone: [facility] 05-10-2024 09:39-0500 Body weight 77.11 kg Master Guerra MD Work Phone: [facility] 05-10-2024 09:39-0500 Diastolic blood pressure 65 mm[Hg] Master Guerra MD Work Phone: [facility] 05-10-2024 09:39-0500 Heart rate 68 /min Master Guerra MD Work Phone: [facility] 05-10-2024 09:39-0500 SaO2% (BldA) [Mass fraction] 100 % Master Guerra MD Work Phone: [facility] 05-10-2024 09:39-0500 Systolic blood pressure 112 mm[Hg] Master Guerra MD Work Phone: [facility] 02-16-2024 10:11-0500 Body height 169 cm Jazmyn Ellison Work Phone: [facility] 02-16-2024 10:11-0500 Body mass index (BMI) [Ratio] 26.05 kg/m2 Jazmyn Ellison Work Phone: [facility] 02-16-2024 10:11-0500 Body temperature 96.91 [degF] Jazmyn Ellison Work Phone: [facility] 02-16-2024 10:11-0500 Body weight 74.39 kg Jazmyn Ellison Work Phone: [facility] 02-16-2024 10:11-0500 Diastolic blood pressure 60 mm[Hg] Jazmyn Ellison Work Phone: [facility] 02-16-2024 10:11-0500 Heart rate 50 /min Jazmyn Ellison Work Phone: [facility] 02-16-2024 10:11-0500 SaO2% (BldA) [Mass fraction] 100 % Jazmyn Ellison Work Phone: [facility] 02-16-2024 10:11-0500 Systolic blood pressure 96 mm[Hg] Jazmyn Ellison Work Phone: [facility] 12-01-2023 09:42-0400 Body mass index (BMI) [Ratio] 24.22 kg/m2 Mariano Ocampo MD Work Phone: [facility] 12-01-2023 09:42-0400 Body temperature 97.5 [degF] Mariano Ocampo MD Work Phone: [facility] 12-01-2023 09:42-0400 Body weight 70.4 kg Mariano Ocampo MD Work Phone: [facility] 12-01-2023 09:42-0400 Diastolic blood pressure 62 mm[Hg] Mariano Ocampo MD Work Phone: [facility] 12-01-2023 09:42-0400 Heart rate 52 /min Mariano Ocampo MD Work Phone: [facility] 12-01-2023 09:42-0400 Respiratory rate 16 /min Mariano Ocampo MD Work Phone: [facility] 12-01-2023 09:42-0400 Systolic blood pressure 116 mm[Hg] Mariano Ocampo MD Work Phone: [facility] 11-24-2023 10:05-0400 Body temperature 97.5 [degF] Treatment Wstr Work Phone: [facility] 11-24-2023 10:05-0400 Diastolic blood pressure 53 mm[Hg] Treatment Wstr Work Phone: [facility] 11-24-2023 10:05-0400 Heart rate 51 /min Treatment Wstr Work Phone: [facility] 11-24-2023 10:05-0400 SaO2% (BldA) [Mass fraction] 99 % Treatment Wstr Work Phone: [facility] 11-24-2023 10:05-0400 Systolic blood pressure 125 mm[Hg] Treatment Wstr Work Phone: [facility] 11-24-2023 09:26-0400 Body height 170.5 cm Jazmyndavid Nealight Work Phone: [facility] Comment on above: verified with Ursula Ellison CNP 11-24-2023 09:26-0400 Body mass index (BMI) [Ratio] 24.26 kg/m2 Jazmynmanuel Ellison Work Phone: [facility] 11-24-2023 09:26-0400 Body temperature 97.39 [degF] Jazmyndavid Ellison Work Phone: [facility] 11-24-2023 09:26-0400 Body weight 70.53 kg Jazmyn Ellison Work Phone: [facility] 11-24-2023 09:26-0400 Diastolic blood pressure 63 mm[Hg] Jazmyndavid Ellison Work Phone: [facility] 11-24-2023 09:26-0400 Heart rate 49 /min Jazmyndavid Ellison Work Phone: [facility] 11-24-2023 09:26-0400 SaO2% (BldA) [Mass fraction] 99 % Jazmyndavid Ellison Work Phone: [facility] 11-24-2023 09:26-0400 Systolic blood pressure 109 mm[Hg] Jazmyn Ellison Work Phone: [facility] 10-07-2023 08:34-0400 Body mass index (BMI) [Ratio] 23.62 kg/m2 Master Guerra MD Work Phone: [facility] 10-07-2023 08:34-0400 Body temperature 97.11 [degF] Master Guerra MD Work Phone: [facility] 10-07-2023 08:34-0400 Body weight 69.63 kg Master Guerra MD Work Phone: [facility] 10-07-2023 08:34-0400 Diastolic blood pressure 53 mm[Hg] Master Guerra MD Work Phone: [facility] 10-07-2023 08:34-0400 Heart rate 41 /min Master Guerra MD Work Phone: [facility] 10-07-2023 08:34-0400 SaO2% (BldA) [Mass fraction] 100 % Master Guerra MD Work Phone: [facility] 10-07-2023 08:34-0400 Systolic blood pressure 126 mm[Hg] Master Guerra MD Work Phone: [facility] 09-01-2023 08:40-0400 Body mass index (BMI) [Ratio] 22.92 kg/m2 Master Guerra MD Work Phone: [facility] 09-01-2023 08:40-0400 Body temperature 98.01 [degF] Master Guerra MD Work Phone: [facility] 09-01-2023 08:40-0400 Body weight 67.59 kg Master Guerra MD Work Phone: [facility] 09-01-2023 08:40-0400 Diastolic blood pressure 52 mm[Hg] Master Guerra MD Work Phone: [facility] 09-01-2023 08:40-0400 Heart rate 58 /min Master Guerra MD Work Phone: [facility] 09-01-2023 08:40-0400 SaO2% (BldA) [Mass fraction] 100 % Master Guerra MD Work Phone: [facility] 09-01-2023 08:40-0400 Systolic blood pressure 103 mm[Hg] Master Guerra MD Work Phone: [facility] 08-19-2023 09:40-0400 Body mass index (BMI) [Ratio] 22.62 kg/m2 Mariano Ocampo MD Work Phone: [facility] 08-19-2023 09:40-0400 Body weight 66.68 kg Mariano Ocampo MD Work Phone: [facility] 08-19-2023 09:40-0400 Diastolic blood pressure 58 mm[Hg] Mariano Ocampo MD Work Phone: [facility] 08-19-2023 09:40-0400 Heart rate 56 /min Mariano Ocampo MD Work Phone: [facility] 08-19-2023 09:40-0400 Respiratory rate 16 /min Mariano Ocampo MD Work Phone: [facility] 08-19-2023 09:40-0400 SaO2% (BldA) [Mass fraction] 98 % Mariano Ocampo MD Work Phone: [facility] 08-19-2023 09:40-0400 Systolic blood pressure 112 mm[Hg] Mariano Ocampo MD Work Phone: [facility] 07-29-2023 14:11-0400 Body mass index (BMI) [Ratio] 23.31 kg/m2 Iam Juarez MD Work Phone: [facility] 07-29-2023 14:11-0400 Body temperature 97.5 [degF] Iam Juarez MD Work Phone: [facility] 07-29-2023 14:11-0400 Body weight 68.72 kg Iam Juarez MD Work Phone: [facility] 07-29-2023 14:11-0400 Diastolic blood pressure 62 mm[Hg] Iam Juarez MD Work Phone: [facility] 07-29-2023 14:11-0400 Heart rate 78 /min Iam Juarez MD Work Phone: [facility] 07-29-2023 14:11-0400 SaO2% (BldA) [Mass fraction] 99 % Iam Juarez MD Work Phone: [facility] 07-29-2023 14:11-0400 Systolic blood pressure 107 mm[Hg] Iam Juarez MD Work Phone: [facility] 07-25-2023 14:30-0400 Body mass index (BMI) [Ratio] 23.08 kg/m2 Mariano Ocampo MD Work Phone: [facility] 07-25-2023 14:30-0400 Body weight 68.04 kg Mariano Ocampo MD Work Phone: [facility] 07-25-2023 14:30-0400 Diastolic blood pressure 60 mm[Hg] Mariano Ocampo MD Work Phone: [facility] 07-25-2023 14:30-0400 Heart rate 56 /min Mariano Ocampo MD Work Phone: [facility] 07-25-2023 14:30-0400 Respiratory rate 18 /min Mariano Ocampo MD Work Phone: [facility] 07-25-2023 14:30-0400 Systolic blood pressure 102 mm[Hg] Mariano Ocampo MD Work Phone: [facility] 07-22-2023 03:12-0400 Body temperature 97.4 [degF] [facility] 07-22-2023 03:12-0400 Diastolic blood pressure 54 mm[Hg] [facility] 07-22-2023 03:12-0400 Heart rate 70 /min [facility] 07-22-2023 03:12-0400 Respiratory rate 18 /min [facility] 07-22-2023 03:12-0400 SaO2% (BldA) [Mass fraction] 95 % [facility] 07-22-2023 03:12-0400 Systolic blood pressure 115 mm[Hg] [facility] 07-21-2023 23:14-0400 Body height 170.18 cm [facility] 07-21-2023 23:14-0400 Body mass index (BMI) [Ratio] 23.7 kg/m2 [facility] 07-21-2023 23:14-0400 Body weight 68.66 kg [facility] 05-19-2023 10:33-0500 Body temperature 96.91 [degF] Mariano Ocampo MD Work Phone: [facility] 05-19-2023 10:33-0500 Body weight 67.59 kg Mariano Ocampo MD Work Phone: [facility] 05-19-2023 10:33-0500 Diastolic blood pressure 54 mm[Hg] Mariano Ocampo MD Work Phone: [facility] 05-19-2023 10:33-0500 Heart rate 56 /min Mariano Ocampo MD Work Phone: [facility] 05-19-2023 10:33-0500 Respiratory rate 16 /min Mariano Ocampo MD Work Phone: [facility] 05-19-2023 10:33-0500 Systolic blood pressure 100 mm[Hg] Mariano Ocampo MD Work Phone: [facility] 04-06-2023 06:23-0500 Body temperature 99.5 [degF] Dr. Mariano Ocampo Work Phone: [facility] 04-06-2023 06:23-0500 Diastolic blood pressure 43 mm[Hg] Dr. Mariano Ocampo Work Phone: [facility] 04-06-2023 06:23-0500 Heart rate 47 /min Dr. Mariano Ocampo Work Phone: [facility] 04-06-2023 06:23-0500 Respiratory rate 15 /min Dr. Mariano Ocampo Work Phone: [facility] 04-06-2023 06:23-0500 SaO2% (BldA) [Mass fraction] 97 % Dr. Mariano Ocampo Work Phone: 4(314)947-561070 [place] [address] 04-06-2023 06:23-0500 Systolic blood pressure 91 mm[Hg] Dr. Mariano Ocampo Work Phone: 2(115)887-182170 [place] [address] 04-06-2023 04:33-0500 Body height 170.[address] Mariano Ocampo Work Phone: 6(342)026-223570 [place] [address] 04-06-2023 04:33-0500 Body mass index (BMI) [Ratio] 23.9 kg/m2 Dr. Mariano Ocampo Work Phone: 6(139)364-273970 [place] [address] 04-06-2023 04:33-0500 Body weight 69.[address] Mariano Ocampo Work Phone: 7(998)002-993370 [place] [address] 02-09-2023 09:36-0500 Body mass index (BMI) [Ratio] 24.5 kg/m2 Dr. Mariano Ocampo Work Phone: 9(868)942-487870 [place] [address] 02-09-2023 09:36-0500 Body weight 71.[address] Mariano Ocampo Work Phone: 6(263)809-743970 [place] [address] 02-09-2023 09:36-0500 Diastolic blood pressure 59 mm[Hg] Dr. Mariano Ocampo Work Phone: 4(390)042-148170 [place] [address] 02-09-2023 09:36-0500 Heart rate 53 /min Dr. Mariano Ocampo Work Phone: 3(816)366-529443 [place] [address] 02-09-2023 09:36-0500 Respiratory rate 18 /min Dr. Mariano Ocampo Work Phone: 9(292)683-253343 [place] [address] 02-09-2023 09:36-0500 SaO2% (BldA) [Mass fraction] 100 % Dr. Mariano Ocampo Work Phone: 5(498)137-608870 [place] [address] 02-09-2023 09:36-0500 Systolic blood pressure 108 mm[Hg] Dr. Mariano Ocampo Work Phone: 8(553)272-281870 [place] [address] 01-26-2023 08:33-0500 Body weight 68.[address] Mariano Ocampo Work Phone: [facility] 01-25-2023 10:42-0500 Body weight 70.31 kg Mariano Ocampo MD Work Phone: [facility] 01-25-2023 10:42-0500 Diastolic blood pressure 58 mm[Hg] Mariano Ocampo MD Work Phone: [facility] 01-25-2023 10:42-0500 Heart rate 42 /min Mariano Ocampo MD Work Phone: [facility] 01-25-2023 10:42-0500 SaO2% (BldA) [Mass fraction] 99 % Mariano Ocampo MD Work Phone: [facility] 01-25-2023 10:42-0500 Systolic blood pressure 110 mm[Hg] Mariano Ocampo MD Work Phone: [facility] 01-03-2023 15:11-0400 Body height 170.[address] Mraiano Ocampo Work Phone: [facility] 01-03-2023 15:11-0400 Body mass index (BMI) [Ratio] 24 kg/m2 Dr. Mariano Ocampo Work Phone: [facility] 01-03-2023 15:11-0400 Body temperature 97.3 [degF] Dr. Mariano Ocampo Work Phone: [facility] 01-03-2023 15:11-0400 Body weight 69.[address] Mariano Ocampo Work Phone: [facility] 01-03-2023 15:11-0400 Diastolic blood pressure 82 mm[Hg] Dr. Mariano Ocampo Work Phone: [facility] 01-03-2023 15:11-0400 Heart rate 72 /min Dr. Mariano Ocampo Work Phone: [facility] 01-03-2023 15:11-0400 Respiratory rate 16 /min Dr. Mariano Ocampo Work Phone: [facility] 01-03-2023 15:11-0400 SaO2% (BldA) [Mass fraction] 99 % Dr. Mariano Ocampo Work Phone: [facility] 01-03-2023 15:11-0400 Systolic blood pressure 117 mm[Hg] Dr. Mariano Ocampo Work Phone: [facility] 12-27-2022 19:17-0400 Body temperature 97.3 [degF] Mariano Ocampo MD Work Phone: [facility] 12-27-2022 19:17-0400 Body weight 71.26 kg Mariano Ocampo MD Work Phone: [facility] 12-27-2022 19:17-0400 Diastolic blood pressure 56 mm[Hg] Mariano Ocampo MD Work Phone: [facility] 12-27-2022 19:17-0400 Heart rate 53 /min Mariano Ocampo MD Work Phone: [facility] 12-27-2022 19:17-0400 Respiratory rate 16 /min Mariano Ocampo MD Work Phone: [facility] 12-27-2022 19:17-0400 SaO2% (BldA) [Mass fraction] 99 % Mariano Ocampo MD Work Phone: [facility] 12-27-2022 19:17-0400 Systolic blood pressure 120 mm[Hg] Mariano Ocampo MD Work Phone: [facility] 12-27-2022 07:04-0400 Body weight 70.[address] Mariano Ocampo Work Phone: [facility] 12-22-2022 14:23-0400 Body mass index (BMI) [Ratio] 24.6 kg/m2 Dr. Mariano Ocampo Work Phone: [facility] 12-22-2022 14:23-0400 Body temperature 96.7 [degF] Dr. Mariano Ocampo Work Phone: 5(527)329-026770 [place] [address] 12-22-2022 14:23-0400 Body weight 71.[address] Mariano Ocampo Work Phone: 3(675)837-195170 [place] [address] 12-22-2022 14:23-0400 Diastolic blood pressure 62 mm[Hg] Dr. Mariano Ocampo Work Phone: 8(701)488-899670 [place] [address] 12-22-2022 14:23-0400 Heart rate 65 /min Dr. Mariano Ocampo Work Phone: 4(838)304-793370 [place] [address] 12-22-2022 14:23-0400 Respiratory rate 17 /min Dr. Mariano Ocampo Work Phone: 1(511)618-387270 [place] [address] 12-22-2022 14:23-0400 SaO2% (BldA) [Mass fraction] 99 % Dr. Mariano Ocampo Work Phone: 9(157)123-704170 [place] [address] 12-22-2022 14:23-0400 Systolic blood pressure 102 mm[Hg] Dr. Mariano Ocampo Work Phone: 8(954)457-445170 [place] [address] 12-17-2022 12:59-0400 Body mass index (BMI) [Ratio] 24.5 kg/m2 Dr. Mariano Ocampo Work Phone: 5(644)775-373070 [place] [address] 12-17-2022 12:59-0400 Body weight 70.[address] Mariano Ocampo Work Phone: 6(087)240-743570 [place] [address] 12-06-2022 12:05-0400 Diastolic blood pressure 65 mm[Hg] Dr. Mariano Ocampo Work Phone: 2(760)356-005970 [place] [address] 12-06-2022 12:05-0400 Heart rate 55 /min Dr. Mariano Ocampo Work Phone: 8(847)414-901170 [place] [address] 12-06-2022 12:05-0400 Respiratory rate 14 /min Dr. Mariano Ocampo Work Phone: 7(440)656-847270 [place] [address] 12-06-2022 12:05-0400 SaO2% (BldA) [Mass fraction] 99 % Dr. Mariano Ocampo Work Phone: 1(596)493-985543 [place] [address] 12-06-2022 12:05-0400 Systolic blood pressure 109 mm[Hg] Dr. Mariano Ocampo Work Phone: 4(910)213-414170 [place] [address] 12-06-2022 08:08-0400 Body height 170.[address] Mariano Ocampo Work Phone: 3(478)661-416670 [place] [address] 12-06-2022 08:08-0400 Body mass index (BMI) [Ratio] 24.7 kg/m2 Dr. Mariano Ocampo Work Phone: 0(229)680-409770 [place] [address] 12-06-2022 08:08-0400 Body temperature 97.6 [degF] Dr. Mariano Ocampo Work Phone: 0(906)353-764170 [place] [address] 12-06-2022 08:08-0400 Body weight 71.[address] Mariano Ocampo Work Phone: 2(898)096-814270 [place] [address] 11-26-2022 07:20-0400 Body weight 73.[address] Mariano Ocampo Work Phone: 8(871)309-094970 [place] [address] 10-27-2022 14:20-0400 Body mass index (BMI) [Ratio] 26.2 kg/m2 Dr. Mariano Ocampo Work Phone: 3(830)619-856370 [place] [address] 10-27-2022 14:18-0400 Body height 170.[address] Mariano Ocampo Work Phone: 5(791)493-629070 [place] [address] 10-27-2022 14:18-0400 Body weight 75.[address] Mariano Ocampo Work Phone: 4(423)505-871470 [place] [address] 10-27-2022 13:37-0400 Diastolic blood pressure 58 mm[Hg] Dr. Mariano Ocampo Work Phone: 1(234)097-129270 [place] [address] 10-27-2022 13:37-0400 Heart rate 46 /min Dr. Mariano Ocampo Work Phone: 4(887)955-072270 [place] [address] 10-27-2022 13:37-0400 Respiratory rate 14 /min Dr. Mariano Ocampo Work Phone: [facility] 10-27-2022 13:37-0400 SaO2% (BldA) [Mass fraction] 97 % Dr. Mariano Ocampo Work Phone: [facility] 10-27-2022 13:37-0400 Systolic blood pressure 100 mm[Hg] Dr. Mariano Ocampo Work Phone: [facility] 10-22-2022 13:05-0400 Body mass index (BMI) [Ratio] 25.8 kg/m2 Dr. Mariano Ocampo Work Phone: [facility] 10-22-2022 13:05-0400 Body weight 74.[address] Mariano Ocampo Work Phone: 8(303)440-921119 [address] 10-22-2022 13:05-0400 Diastolic blood pressure 68 mm[Hg] Dr. Mariano Ocampo Work Phone: [facility] 10-22-2022 13:05-0400 Heart rate 52 /min Dr. Mariano Ocampo Work Phone: 6(853)390-129143 [place] [address] 10-22-2022 13:05-0400 Respiratory rate 18 /min Dr. Mariano Ocampo Work Phone: [facility] 10-22-2022 13:05-0400 SaO2% (BldA) [Mass fraction] 99 % Dr. Mariano Ocampo Work Phone: [facility] 10-22-2022 13:05-0400 Systolic blood pressure 114 mm[Hg] Dr. Mariano Ocampo Work Phone: [facility] 10-21-2022 10:07-0400 Body weight 74.39 kg Mariano Ocampo MD Work Phone: [facility] 10-21-2022 10:07-0400 Diastolic blood pressure 62 mm[Hg] Mariano Ocampo MD Work Phone: [facility] 10-21-2022 10:07-0400 Heart rate 56 /min Mariano Ocampo MD Work Phone: [facility] 10-21-2022 10:07-0400 Respiratory rate 12 /min Mariano Ocampo MD Work Phone: [facility] 10-21-2022 10:07-0400 Systolic blood pressure 112 mm[Hg] Mariano Ocampo MD Work Phone: [facility] 09-30-2022 13:09-0400 Body height 170.2 cm Alok Ferdig PROTOTYPE ENGINEER MANAGER - CONTRACT CLERK Work Phone: [facility] 09-30-2022 13:09-0400 Body mass index (BMI) [Ratio] 26.19 kg/m2 Alok Ferdig PROTOTYPE ENGINEER MANAGER - CONTRACT CLERK Work Phone: [facility] 09-30-2022 13:09-0400 Body weight 75.84 kg Alok Ferdig PROTOTYPE ENGINEER MANAGER - CONTRACT CLERK Work Phone: [facility] 09-30-2022 13:09-0400 Diastolic blood pressure 58 mm[Hg] Alok Ferdig PROTOTYPE ENGINEER MANAGER - CONTRACT CLERK Work Phone: [facility] 09-30-2022 13:09-0400 Heart rate 46 /min Alok Ferdig PROTOTYPE ENGINEER MANAGER - CONTRACT CLERK Work Phone: [facility] 09-30-2022 13:09-0400 SaO2% (BldA) [Mass fraction] 97 % Alok Ferdig PROTOTYPE ENGINEER MANAGER - CONTRACT CLERK Work Phone: [facility] 09-30-2022 13:09-0400 Systolic blood pressure 100 mm[Hg] Alok Ferdig PROTOTYPE ENGINEER MANAGER - CONTRACT CLERK Work Phone: [facility] 09-21-2022 09:45-0400 Heart rate 63 /min Clayton Ayon MD Work Phone: [facility] 09-21-2022 09:45-0400 Respiratory rate 16 /min Clayton Ayon MD Work Phone: [facility] 09-21-2022 08:11-0400 Body temperature 97.7 [degF] Clayton Ayon MD Work Phone: [facility] 09-21-2022 08:11-0400 SaO2% (BldA) [Mass fraction] 95 % Clayton Ayon MD Work Phone: [facility] 09-21-2022 07:45-0400 Diastolic blood pressure 61 mm[Hg] Clayton Ayon MD Work Phone: [facility] 09-21-2022 07:45-0400 Systolic blood pressure 121 mm[Hg] Clayton Ayon MD Work Phone: [facility] 09-21-2022 03:53-0400 Body mass index (BMI) [Ratio] 26.83 kg/m2 Clayton Ayon MD Work Phone: [facility] 09-21-2022 03:53-0400 Body weight 77.7 kg Clayton Ayon MD Work Phone: [facility] 09-20-2022 08:53-0400 Body height 170.2 cm Clayton Ayon MD Work Phone: [facility] 09-16-2022 15:59-0400 Body height 170.2 cm Clayton Ayon MD Work Phone: [facility] 09-16-2022 15:59-0400 Body mass index (BMI) [Ratio] 26.59 kg/m2 Clayton Ayon MD Work Phone: [facility] 09-16-2022 15:59-0400 Body weight 77.02 kg Clayton Ayon MD Work Phone: [facility] 09-16-2022 15:59-0400 Diastolic blood pressure 62 mm[Hg] Clayton Ayon MD Work Phone: [facility] 09-16-2022 15:59-0400 Heart rate 78 /min Clayton Ayon MD Work Phone: [facility] 09-16-2022 15:59-0400 SaO2% (BldA) [Mass fraction] 98 % Clayton Ayon MD Work Phone: [facility] 09-16-2022 15:59-0400 Systolic blood pressure 104 mm[Hg] Clayton Ayon MD Work Phone: [facility] 09-14-2022 14:50-0400 Body height 170.[address] Mariano Ocampo Work Phone: [facility] 09-14-2022 14:50-0400 Body mass index (BMI) [Ratio] 26.6 kg/m2 Dr. Mariano Ocampo Work Phone: [facility] 09-14-2022 14:50-0400 Body temperature 97.5 [degF] Dr. Mariano Ocampo Work Phone: 3(982)104-321470 [place] [address] 09-14-2022 14:50-0400 Body weight 77.[address] Mariano Ocampo Work Phone: 6(244)570-496670 [place] [address] 09-14-2022 14:50-0400 Diastolic blood pressure 57 mm[Hg] Dr. Mariano Ocampo Work Phone: 6(232)450-456043 [place] [address] 09-14-2022 14:50-0400 Heart rate 72 /min Dr. Mariano Ocampo Work Phone: 6(934)720-283570 [place] [address] 09-14-2022 14:50-0400 Respiratory rate 15 /min Dr. Mariano Ocampo Work Phone: 1(200)752-700470 [place] [address] 09-14-2022 14:50-0400 SaO2% (BldA) [Mass fraction] 98 % Dr. Mariano Ocampo Work Phone: 6(077)792-719343 [place] [address] 09-14-2022 14:50-0400 Systolic blood pressure 129 mm[Hg] Dr. Mariano Ocampo Work Phone: 6(935)816-459443 [place] [address] 09-13-2022 09:46-0400 Body height 170.[address] Mariano Ocampo Work Phone: [facility] 09-13-2022 09:46-0400 Body weight 78.[address] Mariano Ocampo Work Phone: [facility] 09-10-2022 08:04-0400 Body mass index (BMI) [Ratio] 26.9 kg/m2 Dr. Mariano Ocampo Work Phone: [facility] 09-08-2022 10:05-0400 Body weight 78.[address] Mariano Ocampo Work Phone: [facility] 09-08-2022 10:05-0400 Diastolic blood pressure 68 mm[Hg] Dr. Mariano Ocampo Work Phone: [facility] 09-08-2022 10:05-0400 Heart rate 53 /min Dr. Mariano Ocampo Work Phone: [facility] 09-08-2022 10:05-0400 Respiratory rate 16 /min Dr. Mariano Ocampo Work Phone: [facility] 09-08-2022 10:05-0400 Systolic blood pressure 138 mm[Hg] Dr. Mariano Ocampo Work Phone: [facility] 07-22-2022 09:36-0400 Body height 171.7 cm Mariano Ocampo MD Work Phone: [facility] 07-22-2022 09:36-0400 Body weight 79.83 kg Mariano Ocampo MD Work Phone: [facility] 07-22-2022 09:36-0400 Diastolic blood pressure 68 mm[Hg] Mariano Ocampo MD Work Phone: [facility] 07-22-2022 09:36-0400 Heart rate 56 /min Mariano Ocampo MD Work Phone: [facility] 07-22-2022 09:36-0400 Respiratory rate 12 /min Mariano Ocampo MD Work Phone: [facility] 07-22-2022 09:36-0400 SaO2% (BldA) [Mass fraction] 98 % Mariano Ocampo MD Work Phone: [facility] 07-22-2022 09:36-0400 Systolic blood pressure 124 mm[Hg] Mariano Ocampo MD Work Phone: [facility] 01-20-2022 11:03-0500 Diastolic blood pressure 50 mm[Hg] Mariano Ocampo MD Work Phone: [facility] 01-20-2022 11:03-0500 Systolic blood pressure 122 mm[Hg] Mariano Ocampo MD Work Phone: [facility] 01-20-2022 10:12-0500 Body temperature 97.11 [degF] Mariano Ocampo MD Work Phone: [facility] 01-20-2022 10:12-0500 Body weight 78.02 kg Mariano Ocampo MD Work Phone: [facility] 01-20-2022 10:12-0500 Heart rate 60 /min Mariano Ocampo MD Work Phone: [facility] 01-20-2022 10:12-0500 Respiratory rate 12 /min Mariano Ocampo MD Work Phone: [facility] 07-20-2021 14:01-0400 Body temperature 97.3 [degF] Mariano Ocampo MD Work Phone: [facility] 07-20-2021 14:01-0400 Body weight 82.1 kg Mariano Ocampo MD Work Phone: [facility] 07-20-2021 14:01-0400 Diastolic blood pressure 76 mm[Hg] Mariano Ocampo MD Work Phone: [facility] 07-20-2021 14:01-0400 Heart rate 64 /min Mariano Ocampo MD Work Phone: [facility] 07-20-2021 14:01-0400 Respiratory rate 12 /min Mariano Ocampo MD Work Phone: [facility] 07-20-2021 14:01-0400 Systolic blood pressure 120 mm[Hg] Mariano Ocampo MD Work Phone: [facility] Encounters Encounter Date Encounter Type Care Provider Facility Start: 08-30-2024 End: 08-30-2024 ambulatory MARIANO OCAMPO Facility:[facility] Start: 08-21-2024 End: 08-21-2024 Specialty Pharmacy Jahaira Ramirez [facility] Comment on above: SPP Oral Oncology/he matology - Medication Refill (Xtandi) Start: 08-09-2024 End: 08-09-[address] Mariano Ocampo MD Work Phone: [facility] Work Phone: Start: 08-09-2024 End: 08-09-2024 Patient encounter procedure Rufus Quintana PA -Laboratory Work Phone: Start: 08-09-2024 End: 08-09-2024 ambulatory Rufus Quintana Facility:[facility] Start: 08-07-2024 End: 08-07-2024 Patient encounter procedure Rufus Quintana [place] -[facility] Work Phone: Start: 08-07-2024 End: 08-07-[address] Mariano Ocampo MD Work Phone: [facility] Work Phone: Start: 08-02-2024 End: 08-02-2024 ambulatory MARIANO OCAMPO Facility:[facility] Start: 07-26-2024 End: 07-26-2024 ambulatory MARIANO OCAMPO Facility:[facility] Start: 07-25-2024 End: 07-25-2024 Telephone encounter Mariano Ocampo MD Work Phone: [facility] [place] Comment on above: fax copy of CT brain results to [facility] Start: 07-23-2024 End: 07-23-2024 Follow-up encounter Mariano Ocampo MD Work Phone: [facility] [place] Start: 07-18-2024 End: 07-18-2024 Office outpatient visit 15 minutes Clayton Gill MD Work Phone: [facility] Comment on above: Hematoma of left wri st (Primary Dx) Start: 07-18-2024 End: 07-21-2024 Follow-up encounter Mariano Ocampo MD Work Phone: [facility] [place] Start: 07-18-2024 End: 07-18-2024 ambulatory CLAYTON GILL Facility:[facility] Start: 07-18-2024 ambulatory MARIANO Zaidi lity:[facility] Start: 07-18-2024 End: 07-18-2024 Subsequent hospital visit by physician Marycruz [facility] (I-Stat) Work Phone: Cat Scan Comment on above: Abnormal gait [R26.9 ] Start: 07-13-2024 End: 07-13-2024 Specialty Pharmacy Sayda Greer [facility] Comment on above: SPP Oral Oncology/he matology - Medication Refill (Xtandi) Start: 07-03-2024 End: 07-03-2024 ambulatory Nishant Morocho RN Work Phone: [facility] Comment on above: Primary Care Coordin ator- Other (CDM chart review) Start: 06-11-2024 End: 06-11-2024 Specialty Pharmacy Jahaira Ramirez [facility] Comment on above: SPP Oral Oncology/he matology - Medication Refill (Xtandi) Start: 06-05-2024 End: 06-05-2024 ambulatory MARINAO OCAMPO Facility:[facility] Start: 06-05-2024 End: 06-05-2024 Patient encounter procedure Mariano Ocampo MD Work Phone: [facility] [place] Comment on above: Medicare annual well ness visit, subsequent (Primary Dx); Encounter for immunization; Essential hypertension; Screening for depression; Encounter for screening examination for other mental health and behavioral disorders; Hematomas; Ecchymosis; Leg edema, right; Abnormal gait; Gout, unspecified cause, unspecified chronicity, unspecified site; Coronary artery disease involving [place] coronary artery of [place] heart without angina pectoris; Prostate cancer (HCC) Start: 06-04-2024 End: 06-04-2024 Telephone encounter Cruzito Young RN Work Phone: Hematology/Oncology Comment on above: Care Coordination (O [facility]AL ANTI-CANCER AGENTS FOLLOW-UP PHONE CALL) Start: 06-02-2024 End: 06-02-2024 Follow-up encounter Mariano Ocampo MD Work Phone: [facility] [place] Start: 06-01-2024 End: 06-01-2024 ambulatory MARIANO OCAMPO Facility:[facility] Start: 05-30-2024 End: 05-30-2024 ambulatory MARIANO OCAMPO Facility:[facility] Start: 05-30-2024 End: 05-31-2024 Telephone encounter Mariano Ocampo MD Work Phone: [facility] [place] Start: 05-24-2024 End: 05-24-2024 Telephone encounter Cruzito Young RN Work Phone: Hematology/Oncology Comment on above: Care Coordination (O RAL ANTI-CANCER AGENTS EDUCATION) Start: 05-18-2024 End: 05-22-2024 Telephone encounter Aretha Zazueta RN Hematology/Oncology Comment on above: Manager Garage - O ther (Medication Question ) Start: 05-10-2024 End: 05-10-2024 ambulatory Master Guerra MD Work Phone: Hematology/Oncology Comment on above: Prostate cancer (HCC ) (Primary Dx) Start: 05-10-2024 End: 05-10-2024 Patient encounter procedure Master Guerra MD Work Phone: Hematology/Oncology Comment on above: SPP Oral Oncology/he matology - Treatment Referral (Xtandi 40 mg); Insurance Authorization (Pending PA) Start: 05-08-2024 End: 05-08-2024 ambulatory MARIANO OCAMPO Facility:[facility] Start: 05-03-2024 End: 05-03-2024 Refill Mariano Ocampo MD Work Phone: [facility] [place] Comment on above: Refill Request Start: 03-15-2024 End: 03-15-2024 ambulatory Karina De La Torre RN Work Phone: [facility] Start: 02-28-2024 End: 02-28-2024 ambulatory MARIANO OCAMPO Facility:[facility] Start: 02-28-2024 End: 02-28-2024 Subsequent hospital visit by physician Mri Radio [facility] (I-Stat/1.5t) Work Phone: Radiology Comment on above: Prostate cancer (HCC ) [C61] Start: 02-21-2024 ambulatory Mariano Vargas ty:[facility] Start: 02-21-2024 End: 02-21-2024 ambulatory Sharyn Gonzalez NP Facility:[facility] Start: 02-17-2024 End: 02-17-2024 Telephone encounter Jazmyn Ellison Work Phone: Hematology/Oncology Start: 02-16-2024 End: 02-16-2024 ambulatory Treatment Rm 15 [facility] Work Phone: Hematology/Oncology Comment on above: Prostate cancer (HCC ) (Primary Dx) Prostate cancer (HCC ) (Primary Dx); Pain in joint of right shoulder; Prostate cancer metastatic to bone (HCC) Start: 02-16-2024 End: 02-16-2024 Patient encounter procedure Jazmyn Ellison Work Phone: Hematology/Oncology Start: 02-14-2024 End: 02-14-2024 ambulatory MARIANO OCAMPO Facility:[facility] Start: 01-31-2024 End: 01-31-2024 ambulatory Mariano Ocampo Facility:[facility] Start: 01-20-2024 End: 01-20-2024 Refill Mariano Ocampo MD Work Phone: Internal Medicine [place] Comment on above: Refill Request Start: 12-23-2023 End: 12-24-2023 Refill Mariano Ocampo MD Work Phone: Internal Medicine [place] Comment on above: Med Change Request Start: 12-01-2023 End: 12-01-2023 ambulatory MARIANO OCAMPO Facility:[facility] Start: 12-01-2023 End: 12-01-2023 Office outpatient visit 15 minutes Mariano Ocampo MD Work Phone: Internal Medicine [place] Comment on above: Need for influenza v accination (Primary Dx); BPH with obstruction/lower urinary tract symptoms; Impaired fasting blood sugar; Abnormal lung sounds; Hyperlipidemia, unspecified hyperlipidemia type; Encounter for immunization Start: 11-24-2023 End: 11-24-2023 Telephone encounter Mariano Ocampo MD Work Phone: Internal Medicine [place] Comment on above: Orders Start: 11-24-2023 End: 11-24-2023 ambulatory Jazmyn Ellison Work Phone: Hematology/Oncology Comment on above: Prostate cancer (HCC ) (Primary Dx); Prostate cancer metastatic to bone (HCC) Prostate cancer (HCC ) (Primary Dx) Start: 11-24-2023 End: 11-24-2023 Patient encounter procedure Jazmyn Ellison Work Phone: Hematology/Oncology Start: 11-22-2023 End: 11-22-2023 ambulatory MARIANO OCAMPO Facility:[facility] Start: 11-11-2023 End: 11-11-2023 Refill Mariano Ocampo MD Work Phone: Internal Medicine [place] Comment on above: Refill Request Start: 11-10-2023 End: 11-10-2023 Telephone encounter Master Guerra MD Work Phone: Hematology/Oncology Comment on above: Patient Update Start: 10-07-2023 End: 10-07-2023 ambulatory Master Guerra MD Work Phone: Hematology/Oncology Comment on above: Prostate cancer (HCC ) (Primary Dx) Start: 10-07-2023 End: 10-07-2023 Patient encounter procedure Master Guerra MD Work Phone: Hematology/Oncology Start: 10-05-2023 End: 10-05-2023 ambulatory MARIANO OCAMPO Facility:[facility] Start: 10-04-2023 Telephone encounter Master garcia MD Work Phone: Hematology/Oncology Comment on above: Future Appointment Start: 09-28-2023 Refill Master lake MD Work Phone: Hematology/Oncology Comment on above: Refill Request Start: 09-08-2023 ambulatory Sharyn Gonzalez NP Facili ty:[facility] Start: 09-07-2023 ambulatory Jasper Gee Facility:[facility] Start: 09-07-2023 End: 09-07-2023 ambulatory Mariano Ocampo Facility:[facility] Start: 09-06-2023 Telephone encounter Master garcia MD Work Phone: Hematology/Oncology Start: 09-01-2023 End: 09-01-2023 ambulatory Master Guerra MD Work Phone: Hematology/Oncology Comment on above: Prostate cancer (HCC ) (Primary Dx); Prostate cancer metastatic to bone (HCC) Prostate cancer (HCC ) (Primary Dx) Start: 09-01-2023 End: 09-01-2023 Patient encounter procedure Master Guerra MD Work Phone: Hematology/Oncology Start: 08-30-2023 End: 08-30-2023 ambulatory CHELE DOUGLAS Facility:[facility] Start: 08-26-2023 Telephone encounter Financial Navigator Chao Work Phone: Financial Services Comment on above: Benefits Investigati on Start: 08-19-2023 End: 08-19-2023 Patient encounter procedure Mariano Ocampo MD Work Phone: Internal Medicine [place] Comment on above: Bronchospasm (Primar y Dx); Abnormal lung sounds; Prostate cancer (HCC) Start: 08-15-2023 End: 08-15-2023 ambulatory Barry Smalls RT(R) Nuclear Medicine Comment on above: Radiology [place] Start: 08-15-2023 Patient encounter procedure Barry Smalls RT(R) Nuclear Medicine Start: 07-29-2023 End: 07-29-2023 ambulatory Iam Juarez MD Work Phone: Hematology/Oncology Comment on above: Prostate cancer (HCC ) (Primary Dx); Lytic bone lesions on xray; Pneumonitis; Myalgias; Anemia, unspecified type; Leukocytosis, unspecified type Start: 07-29-2023 End: 07-29-2023 Patient encounter procedure Iam Juarez MD Work Phone: Hematology/Oncology Start: 07-29-2023 Telephone encounter Master garcia MD Work Phone: Hematology/Oncology Comment on above: AVS 07/29/23 Start: 07-25-2023 End: 07-25-2023 Patient encounter procedure Mariano Ocampo MD Work Phone: Internal Medicine [place] Comment on above: Lytic bone lesions o n xray (Primary Dx); Pneumonitis; Myalgias; Anemia, unspecified type; Leukocytosis, unspecified type; BPH with obstruction/lower urinary tract symptoms Start: 07-22-2023 Telephone encounter Dwight winkler DO Work Phone: Hematology/Oncology Comment on above: Future Appointment Start: 07-21-2023 End: 07-22-2023 Emergency department patient visit [facility] Work Phone: Start: 07-01-2023 ambulatory Karina escalante RN Work Phone: Senior Hr Generalist Management Start: 05-19-2023 End: 05-19-2023 Patient encounter procedure Mariano Ocampo MD Work Phone: Internal Medicine [place] Comment on above: Weight loss (Primary Dx); BPH with obstruction/lower urinary tract symptoms; Cervical pain; Essential hypertension; Hyperlipidemia, unspecified hyperlipidemia type; DDD (degenerative disc disease), lumbar; Abnormal liver enzymes; Nodule of lower lobe of right lung Start: 05-09-2023 End: 05-09-[address] Mariano Ocampo Work Phone: [facility] Work Phone: Start: 05-09-2023 End: 05-09-[address] Mariano Ocampo Work Phone: [facility] Work Phone: Start: 05-02-2023 End: 05-02-2023 Patient encounter procedure Mariano Ocampo MD Work Phone: Internal Medicine [place] Comment on above: Sinobronchitis (Prim romeo Dx); Hyperlipidemia, unspecified hyperlipidemia type; Essential hypertension Start: 04-06-2023 End: 04-06-2023 Emergency department patient visit Dr. Mariano Ocampo Work Phone: [facility] Work Phone: Start: 02-09-2023 End: 02-09-[address] Mariano Ocampo Work Phone: [facility] [facility] Work Phone: Start: 01-31-2023 End: 02-10-[address] Mariano Ocampo Work Phone: [facility] Work Phone: Start: 01-25-2023 End: 01-25-2023 Office outpatient visit 40 minutes Mariano Ocampo MD Work Phone: Internal Medicine [place] Comment on above: Claudication of left lower extremity (HCC) (Primary Dx); Essential hypertension; Atherosclerosis of hopland coronary artery of hopland heart without angina pectoris; Hyperlipidemia, unspecified hyperlipidemia type; Hypoalbuminemia; Alkaline phosphatase elevation; Need for influenza vaccination; Need for COVID-19 vaccine; Contusion of right forearm, initial encounter; Cervical pain Start: 01-14-2023 End: 01-14-[address] Mariano Ocampo Work Phone: [facility] Work Phone: Start: 01-10-2023 End: 01-11-[address] Mariano Ocampo Work Phone: [facility] Work Phone: Start: 01-10-2023 End: 01-11-[address] Mariano Ocampo Work Phone: [facility] Work Phone: Start: 01-06-2023 Refill Mariano hernandez MD Work Phone: Internal Medicine [place] Comment on above: Refill Request Start: 01-03-2023 End: 01-03-2023 Emergency department patient visit Dr. Mariano Ocampo Work Phone: [facility] Work Phone: Start: 12-31-[address] Eagle Ocampo Work Phone: [facility] Work Phone: Start: 12-27-2022 End: 12-27-2022 Patient encounter procedure Mariano Ocampo MD Work Phone: Internal Medicine [place] Comment on above: Cervical pain (Prima ry Dx); Nonintractable paroxysmal hemicrania, unspecified chronicity pattern; Vision disturbance; Urinary frequency Start: 12-22-2022 Telephone encounter Mariano rivero MD Work Phone: Internal Medicine [place] Comment on above: Consult Start: 12-22-2022 End: 12-22-[address] Mariano Ocampo Work Phone: [facility] Work Phone: Start: 12-17-2022 End: 12-17-[address] Mariano Ocampo Work Phone: [facility] Work Phone: Start: 12-10-2022 End: 12-11-2022 Refill Mariano Ocampo MD Work Phone: Internal Medicine [place] Comment on above: Refill Request Start: 12-10-2022 End: 12-11-[address] Mariano Ocampo Work Phone: [facility] Work Phone: Start: 12-09-2022 End: 12-09-[address] Mariano Ocampo Work Phone: [facility], Spec[facility] Work Phone: Start: 12-06-2022 End: 12-06-2022 Emergency department patient visit Dr. Mariano Ocampo Work Phone: [facility] Work Phone: Start: 12-03-[address] Eagle Ocampo Work Phone: [facility] Work Phone: Start: 11-10-2022 End: 11-11-[address] Mariano Ocampo Work Phone: [facility] Work Phone: Start: 11-10-2022 End: 11-11-[address] Mariano Ocampo Work Phone: [facility] Work Phone: Start: 11-01-[address] Eagle Ocampo Work Phone: [facility] Work Phone: Start: 10-27-2022 End: 10-27-[address] Mariano Ocampo Work Phone: [facility] Work Phone: Start: 10-26-2022 Non-patient / Non-visit Dr. Smitha Ocampo Work Phone: [facility] Start: 10-26-2022 End: 10-26-[address] Mariano Ocampo Work Phone: [facility] Work Phone: Start: 10-26-2022 End: 10-26-[address] Mariano Ocampo Work Phone: [facility] Work Phone: Start: 10-22-2022 End: 10-22-[address] 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 Start: 09-20-2022 End: 09-21-2022 Subsequent hospital visit by physician Clayton Ayon MD Work Phone: [facility] Comment on above: Coronary artery dise ase involving hopland coronary artery of hopland heart with other form of angina pectoris (HCC) (Primary Dx); 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 Start: 09-16-2022 End: 09-16-2022 ambulatory [employer] [facility] Start: 09-16-2022 End: 09-16-2022 Office outpatient new 45 minutes Clayton Ayon MD Work Phone: [facility] Comment on above: Coronary artery dise ase involving hopland coronary artery of hopland heart with other form of angina pectoris (HCC) (Primary Dx); Moderate aortic stenosis; Primary hypertension; Mixed hyperlipidemia; Nonrheumatic aortic valve stenosis; MARISOL (obstructive sleep apnea); Family history of chronic ischemic heart disease Start: 09-16-2022 Telephone encounter Clayton soni MD Work Phone: [facility] Comment on above: Procedure (PCI sched ule) Start: 09-15-2022 Non-patient / Non-visit Dr. Smitha Ocampo Work Phone: [facility] Start: 09-15-2022 End: 09-15-[address] Mariano Ocampo Work Phone: [facility] Work Phone: Start: 09-15-2022 End: 09-15-[address] Mariano Ocampo Work Phone: [facility] [facility] Work Phone: Start: 09-14-2022 End: 09-14-2022 Emergency department patient visit Dr. Mariano Ocampo Work Phone: [facility] Work Phone: Start: 09-13-2022 Non-patient / Non-visit Dr. mSitha Ocampo Work Phone: [facility] Start: 09-13-2022 End: 09-13-2022 Admission to same day surgery center Dr. Mariano Ocampo Work Phone: [facility]Operators School Manager/Special Procedures Work Phone: Start: 09-13-2022 End: 09-13-[address] Mariano Ocampo Work Phone: [facility] Work Phone: Start: 09-08-2022 End: 09-08-[address] Mariano Ocampo Work Phone: [facility] Work Phone: Start: 09-08-2022 End: 09-08-[address] Mariano Ocampo Work Phone: [facility], [facility] Work Phone: Start: 09-08-2022 End: 09-08-[address] Mariano Ocampo Work Phone: [facility] [facility] Work Phone: Start: 08-31-2022 Non-patient / Non-visit Dr. Smitha Ocampo Work Phone: [facility] [facility] Work Phone: Start: 08-13-2022 Telephone encounter Mariano rivero MD Work Phone: Internal Medicine [place] Comment on above: Results Start: 07-22-2022 End: 07-22-2022 Patient encounter procedure Mariano Ocampo MD Work Phone: Internal Medicine [place] Comment on above: Medicare annual well ness visit, subsequent (Primary Dx); Foot cramps; Cyst, dermoid, arm, right; Impaired fasting blood sugar; Abnormal lung sounds; Heart murmur; Hyperlipidemia, unspecified hyperlipidemia type Start: 01-20-2022 End: 01-20-2022 Patient encounter procedure Mariano Ocampo MD Work Phone: Internal Medicine [place] Comment on above: Primary cough headac he (Primary Dx); Essential hypertension; Hyperlipidemia, unspecified hyperlipidemia type; Impaired fasting blood sugar; Allergic rhinitis, unspecified seasonality, unspecified trigger Start: 01-04-2022 Refill Mariano hernandez MD Work Phone: [facility] Comment on above: Refill Request Start: 12-18-2021 Refill Mariano hernandez MD Work Phone: Internal Medicine [place] Comment on above: Refill Request Start: 07-20-2021 End: 07-20-2021 Patient encounter procedure Mariano Ocampo MD Work Phone: Internal Medicine [place] Comment on above: Impaired fasting blo od sugar (Primary Dx); Essential hypertension; Hyperlipidemia, unspecified hyperlipidemia type Start: 01-19-2021 End: 01-19-2021 Subsequent hospital visit by physician Demetrio [facility] [place] Work Phone: Radiology Comment on above: Acute pain of right shoulder [M25.511] Procedures Date Procedure Procedure Detail Performing Clinician Start: 07-18-2024 Ct head/brain w/o co ntrast material Mariano Ocampo MD Work Phone: Start: 06-05-2024 PFIZER-BIONTECH COVI D-19 VACCINE AGE 12+ YR (COMIRNATY) Mariano Ocampo MD Work Phone: Start: 06-05-2024 Adult depression scr eening assessment Mariano Ocampo MD Work Phone: Start: 02-28-2024 Mri any jt upper ext remity w/o contrast matrl Jazmyn Ellison Work Phone: Start: 12-01-2023 PFIZER-BIONTECH COVI D-19 VACCINE AGE 12+ YR Mariano Ocampo MD Work Phone: Start: 12-01-2023 Hemoglobin A1c/Hemoglobin.total in Blood Mariano Ocampo MD Work Phone: Start: 07-22-2023 Computed tomography of abdomen and pelvis with intravenous contrast Start: 07-21-2023 Plain chest X-ray Start: 07-21-2023 SARS-CoV-2, Influenz a & RSV (PCR) Start: 04-06-2023 Plain chest X-ray Dr. Germaine Ocampo Work Phone: Start: 01-25-2023 PFIZER-BIONTECH COVI D-19 VACCINE ( SEASON) AGE 12+ YR Mariano Ocampo MD Work Phone: Start: 01-25-2023 INFLUENZA VACCINE, P RSV FREE, AGE 65+ YR, HIGH DOSE, QUADRIVALENT (FLUZONE HIGH-DOSE) Mariano Ocampo MD Work Phone: Start: 01-14-2023 MRI of cervical spine Jace Ocampo Work Phone: Start: 12-17-2022 Plain X-ray of shoulder Dr. Mariano Ocampo Work Phone: Start: 12-17-2022 X-ray of cervical spine Dr. Mariano Ocampo Work Phone: Start: 12-06-2022 CT of thorax, abdome n and pelvis with contrast Dr. Mariano Ocampo Work Phone: Start: 09-21-2022 Lipid 1996 panel - S dominick or Plasma Clayton Ayon MD Work Phone: Start: 09-21-2022 Basic metabolic pane l calcium total Ganesh Jeanette PACHECO Work Phone: Start: 09-21-2022 Lipid panel Liz B Puliafico PROTOTYPE ENGINEER MANAGER - CONTRACT CLERK Work Phone: Start: 09-20-2022 POCT ACT Clayton [...] POCT ACT Clayton Ayon MD Work Phone: Start: 09-08-2022 Plain chest X-ray Dr. Germaine Ocampo Work Phone: Start: 01-19-2021 Radiologic exam ches t 2 views Mariano Ocampo MD Work Phone: History of placement of stent for coronary artery disease Hx of heart artery stent Dr. Mariano Ocampo Work Phone: Comment on above: PCI to the proximal LAD that was overlapped, PCI to the OM 1, PCI to the right posterior lateral, balloon angioplasty to the diagonal (Summa 09/2022) History of placement of stent for coronary artery disease Hx of heart artery stent Rufus DELGADO Plan of Treatment Date Care Activity Detail Author Start: 03-02-2031 DTaP/Tdap/Td Vaccines (2 - Td or Tdap) DTaP/Tdap/Td Vaccines (2 - Td or Tdap) [facility] Start: 03-02-2031 Urine microalbumin profile [facility] Start: 09-22-2027 Lipid panel Lipid Panel [facility] Start: 07-27-2027 Diabetes Screening Diabetes Screening [facility] Start: 06-02-2027 Diabetes Screening Diabetes Screening [facility] Start: 05-31-2027 Diabetes Screening Diabetes Screening [facility] Start: 05-08-2027 Diabetes Screening Diabetes Screening [facility] Start: 02-13-2027 Diabetes Screening Diabetes Screening [facility] Start: 11-30-2026 Diabetes Screening Diabetes Screening [facility] Start: 11-21-2026 Diabetes Screening Diabetes Screening [facility] Start: 07-28-2026 Diabetes Screening Diabetes Screening [facility] Start: 05-15-2026 Diabetes Screening Diabetes Screening [facility] Start: 01-17-2026 Diabetes Screening Diabetes Screening [facility] Start: 07-13-2025 DIABETES SCREEN DIABETES SCREEN [facility] Start: 07-13-2025 Diabetes Screening Diabetes Screening [facility] Start: 06-05-2025 Anxiety Screening Anxiety Screening [facility] Start: 06-05-2025 Depression Screening Depression Screening [facility] Start: 06-01-2025 Hepatitis B surface antibody level LDL Cholesterol [facility] Start: 01-13-2025 DIABETES SCREEN DIABETES SCREEN [facility] Start: 10-25-2024 End: 10-25-2024 ambulatory Hematology/Oncology Comment on above: OV/LABS 10/18/TREATMENT TODAY* joshajisa 2ND Start: 10-18-2024 End: 10-18-2024 ambulatory 10/18/2024 8:30 AM EDT Results Only [place] [facility] [address] [place] [address] CBC/CMP/(SO)PSA* [place] [facility] Comment on above: CBC/CMP/(SO)PSA* Start: 09-17-2024 End: 09-17-2024 Patient encounter procedure [facility] [place] Comment on above: Subdural hematoma (HCC) [S06.5XAA] Refill Xtandi (30 ds ) speak to - Start: 09-05-2024 End: 09-05-2024 Patient encounter procedure 09/05/2024 10:00 AM EDT Office Visit Internal Medicine [place] [address] [place] [address] Mariano Ocampo MD [address] [place] [address] 3 mo follow up Internal Medicine [place] Comment on above: 3 mo follow up Start: 08-21-2024 End: 08-21-2024 Specialty Pharmacy 08/21/2024 7:00 AM EDT Specialty Pharmacy [facility] ([email or web address]) [employer] [id number] [place] [address] Pharmacist, [facility] [address] [place] [address] [place] [id number] Refill Xtani (30 ds) speak to - [facility] Comment on above: Refill Xtani (30 ds) speak to - Start: 08-02-2024 End: 08-02-2024 ambulatory Hematology/Oncology Comment on above: OV/LABS 07/31/TREATMENT TODAY* lora 2ND OV/LABS 07/26/TREATME NT TODAY* lora Start: 07-31-2024 End: 07-31-2024 ambulatory 07/31/2024 8:30 AM EDT Results Only [facility] [address] [place] [address] CBC/CMP/(SO)PSA* [facility] Comment on above: CBC/CMP/(SO)PSA* Start: 07-26-2024 End: 07-26-2024 ambulatory [facility] Comment on above: CBC/CMP/(SO)PSA* (SO)CMP/PSA* Start: 07-20-2024 DIABETES SCREEN DIABETES SCREEN [facility] Start: 07-18-2024 End: 07-18-2024 Patient encounter procedure Cat Scan Comment on above: Abnormal gait [R26.9] Leg edema, right [R6 0.0] Start: 07-17-2024 End: 07-17-2024 Specialty Pharmacy 07/17/2024 11:00 AM EDT Specialty Pharmacy [facility] [id number] [place] [address] Pharmacist, [facility] [address] [place] [address] [place] [address] Refill Xtani (30 ds) speak to - UTR 5/2 [facility] Comment on above: Refill Xtani (30 ds) speak to - UTR 5/2 Start: 07-13-2024 End: 07-13-2024 Specialty Pharmacy 07/13/2024 8:00 AM EDT Specialty Pharmacy [facility] [address] [place] [id number] Pharmacist, [facility] [address] [place] [address] [place] [address] Refill Xtani (30 ds) speak to [facility] Comment on above: Refill Xtani (30 ds) speak to Start: 07-02-2024 End: 07-02-2024 Specialty Pharmacy 07/02/2024 8:15 AM EDT Specialty Pharmacy [facility] [address] [place] [id number] Pharmacist, [facility] [address] [place] [address] [place] [address] Refill Xtani (30 ds) speak to [facility] Comment on above: Refill Xtani (30 ds) speak to Start: 06-11-2024 End: 06-11-2024 Specialty Pharmacy 06/11/2024 7:30 AM EDT Specialty Pharmacy [facility] [address] [place] [id number] Pharmacist, [facility] [address] [place] [address] [place] [address] refill-xtandi [facility] Comment on above: refill-xtandi Start: 06-05-2024 End: 06-05-2024 Patient encounter procedure 06/05/2024 10:00 AM EDT Office Visit [facility] [place] [address] [place] [address] Mariano Ocampo MD [address] [place] [address] Annual Medicare Wellness w/6 month follow-up [facility] [place] Comment on above: Annual Medicare Wellness w/6 month follo w-up Start: 05-30-2024 Covid-19 Vaccine () Covid-19 Vaccine () [facility] Start: 05-30-2024 End: 08-29-2024 Hemoglobin A1c in Blood HEMOGLOBIN A1C Lab Routine Impaired fasting blood sugar Expected: 05/30/2024, Expires: 08/29/2024 [facility] Comment on above: Expected: 05/30/2024, Expires: Start: 05-30-2024 End: 08-29-2024 Lipid 1996 panel - Serum or Plasma LIPID PANEL, FASTING Lab Routine Hyperlipidemia, unspecified hyperlipidemia type Expected: 05/30/2024, Expires: 08/29/2024 [facility] Work Phone: Comment on above: Expected: 05/30/2024, Expires: Start: 05-30-2024 End: 08-29-2024 Urate [Mass/volume] in Serum or Plasma URIC ACID Lab Routine Gout, unspecified cause, unspecified chronicity, unspecified site Expected: 05/30/2024, Expires: 08/29/2024 [facility] Comment on above: Expected: 05/30/2024, Expires: Start: 05-15-2024 Hepatitis B surface antibody level LDL Cholesterol [facility] Start: 05-10-2024 End: 05-10-2024 ambulatory Hematology/Oncology Comment on above: OV/LABS 05/08/TREATMENT TODAY* lora 2ND Start: 05-08-2024 End: 05-08-2024 ambulatory 05/08/2024 8:30 AM EST Results Only [place] [facility] Laboratory [address] [place] [address] CBC/CMP/(SO)PSA* [facility] Comment on above: CBC/CMP/(SO)PSA* Start: 03-14-2024 Advance Directive Discussion Advance Directive Discussion [facility] Start: 02-28-2024 End: 02-28-2024 Patient encounter procedure 02/28/2024 7:30 AM EST Appointment Radiology [address] [place] [address] Prostate cancer (HCC) [C61]; Pain in joint of right shoulder [M25.511]; 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, C79.51] Radiology Comment on above: Prostate cancer (HCC) [C61]; Pain in francisco nt of right shoulder [M25.511]; 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, C79.51] Start: 02-16-2024 End: 02-16-2024 ambulatory Hematology/Oncology Comment on above: OV/LABS 02/13/TREATMENT TODAY* 2ND OV/LABS 02/13/TREATME NT TODAY* lora Start: 02-14-2024 End: 02-14-2024 ambulatory [facility] Comment on above: LABS* CBC/CMP/(SO)PSA* Start: 01-18-2024 Hepatitis B surface antibody level LDL Cholesterol [facility] Start: 01-13-2024 DIABETES SCREEN DIABETES SCREEN [facility] Start: 12-10-2023 Covid-19 Vaccine () Covid-19 Vaccine () [facility] Comment on above: Postponed from 11/12/2022 (Declined at t his time) Start: 12-10-2023 Covid-19 Vaccine (5 - Moderna series) Covid-19 Vaccine (5 - Moderna series) [facility] Comment on above: Postponed from 05/18/2022 (Declined at t his time) Start: 12-01-2023 End: 12-01-2023 Patient encounter procedure 12/01/2023 9:40 AM EDT Office Visit Internal Medicine [facility] [address] [place] [address] Mariano Ocampo MD [address] [place], [place] [id number] 3 month follow up [facility] [place] Comment on above: 3 month follow up Start: 11-24-2023 End: 11-24-2023 ambulatory Hematology/Oncology Comment on above: Q3MO LUPRON/AUTH EXP 08/01/24* OV/LABS 11/21/TREATME NT TODAY* 2ND OV/LABS 11/21/TREATME NT TODAY* lora Start: 11-22-2023 End: 11-22-2023 ambulatory 11/22/2023 8:30 AM EDT Results Only [place] [facility] Laboratory [address] [place] [address] LABS* [place] [facility] Comment on above: LABS* Start: 11-13-2023 Covid-19 Vaccine () Covid-19 Vaccine () [facility] Start: 11-13-2023 Influenza vaccination Influenza Vaccine (#1) [facility] Start: 10-07-2023 End: 10-07-2023 ambulatory 10/07/2023 3:20 PM EDT Visit (SP) Office Hematology/Oncology [address] [place] [address] [place] [address] [place] [address] 5 WK OV/LAB 10/04* Hematology/Oncology Comment on above: 5 WK OV/LAB 10/04* Start: 10-07-2023 End: 10-07-2023 ambulatory 10/07/2023 8:50 AM EDT Visit (SP) Office Hematology/Oncology [address] [place] [address] [place] [address] [facility] [place] [address] 5 WK OV/LAB 10/04* Hematology/Oncology Comment on above: 5 WK OV/LAB 10/04* Start: 10-05-2023 End: 10-05-2023 ambulatory 10/05/2023 8:30 AM EDT Results Only [place] [facility] Laboratory [address] [place] [address] PSA* [place] [facility] Comment on above: PSA* Start: 09-22-2023 Hepatitis B surface antibody level LDL CHOLESTEROL [facility] Start: 09-11-2023 Influenza vaccination Influenza Vaccine (#1) [facility] Comment on above: Postponed from 11/12/2022 (Declined at t his time) Start: 09-01-2023 End: 09-01-2023 ambulatory Hematology/Oncology Comment on above: 3WK OV* Lupron labs (CBC CMP Testosterone and PSA) CBC/CMP/TESTOSTERONE /PSA/3WK OV/LUPRON TODAY* Q3MO LUPRON/ OV TODA Y/AUTH EXP 08/01/24* CBC/CMP/TESTOSTERONE /PSA/3WK OV/PET SCAN 08/14 /LUPRON TODAY* Start: 08-30-2023 End: 08-30-2023 Admission to same day surgery center 08/30/2023 12:00 PM EDT - 08/30/2023 1:00 PM EDT Surgery [facility] [address] [place] [address] [place] [address] [place] [address] BONE BIOPSY TROCAR/NEEDLE DEEP; multiple bone lesions [facility] Comment on above: BONE BIOPSY TROCAR/NEEDLE DEEP; multiple bone lesions Start: 08-30-2023 End: 08-30-2023 Biopsy bone trocar/needle deep BONE BIOPSY TROCAR/NEEDLE DEEP Lytic bone lesions on xray 08/30/2023 12:00 PM EDT [facility] Start: 08-30-2023 Subsequent hospital visit by physician 08/30/2023 12:00 PM EDT Hospital Encounter [facility] [address] [place] [address] [place] [address] [place] [address] Lytic bone lesions on xray [M89.9] [facility] Comment on above: Lytic bone lesions on xray [M89.9] Start: 08-19-2023 End: 11-18-2023 Comprehensive metabolic 2000 panel - Serum or Plasma COMP METABOLIC PANEL Lab Routine Abnormal liver enzymes Expected: 08/19/2023, Expires: 11/18/2023 [facility] Work Phone: Comment on above: Expected: 08/19/2023, Expires: Start: 08-19-2023 End: 11-18-2023 PSA/PROSTSPECAG SCRN PSA/PROSTSPECAG SCRN Lab Routine BPH with obstruction/lower urinary tract symptoms Expected: 08/19/2023, Expires: 11/18/2023 [facility] Work Phone: Comment on above: Expected: 08/19/2023, Expires: Start: 08-19-2023 End: 08-19-2023 Patient encounter procedure 08/19/2023 9:40 AM EDT Office Visit Internal Medicine [place] [address] [place] [address] Mariano Ocampo MD [address] [place], [place] [address] Annual Medicare Wellness w/3 month follow-up Internal Medicine [place] Comment on above: Annual Medicare Wellness w/3 month follo w-up Start: 08-16-2023 End: 08-16-2023 Patient encounter procedure 08/16/2023 11:00 AM EDT Office Visit [facility] [address] [place] [address] Glendy Jaeger [facility] [address] [place] [address] Prostate cancer (HCC) [C61] [facility] Comment on above: Prostate cancer (HCC) [C61] Start: 08-15-2023 End: 08-15-[address] [facility] Comment on above: Lytic bone lesions on xray [M89.9] Start: 07-29-2023 End: 07-29-2023 ambulatory 07/29/2023 2:00 PM EDT Visit (SP) Office Hematology/Oncology [address] [place] [address] [place] [address] [place] [address] RADIOLOGY ASSISTANT/BONE LESIONS/DR.JUSTIN HERRERA* Hematology/Oncology Comment on above: RADIOLOGY ASSISTANT/BONE LESIONS/DR.JUSTIN HERRERA* Start: 07-29-2023 End: 10-28-2023 Prostate specific Ag [Mass/volume] in Serum or Plasma [facility] Comment on above: Expected: 07/29/2023, Expires: Start: 07-29-2023 End: 10-28-2023 Testosterone [Mass/volume] in Serum or Plasma [facility] Comment on above: Expected: 07/29/2023, Expires: 4 Start: 07-26-2023 End: 10-25-2023 CBC W Auto Differential panel - Blood COMPLETE BLOOD COUNT AND DIFFERENTIAL Lab Routine Anemia, unspecified type Leukocytosis, unspecified type Expected: 07/26/2023, Expires: 10/25/2023 [facility] Work Phone: Comment on above: Expected: 07/26/2023, Expires: 4 Start: 07-26-2023 End: 10-25-2023 Comprehensive metabolic 2000 panel - Serum or Plasma COMPREHENSIVE METABOLIC PANEL Lab Routine Lytic bone lesions on xray Expected: 07/26/2023, Expires: 10/25/2023 [facility] Comment on above: Expected: 07/26/2023, Expires: Start: 07-26-2023 End: 10-25-2023 IMMUNOFIXATION SCREEN, SERUM IMMUNOFIXATION SCREEN, SERUM Lab Routine Lytic bone lesions on xray Expected: 07/26/2023, Expires: 10/25/2023 [facility] Comment on above: Expected: 07/26/2023, Expires: 4 Start: 07-26-2023 End: 10-25-2023 PROTEIN ELECTROPHORESIS SERUM W/INTERP PROTEIN ELECTROPHORESIS SERUM W/INTERP Lab Routine Lytic bone lesions on xray Expected: 07/26/2023, Expires: 10/25/2023 [facility] Comment on above: Expected: 07/26/2023, Expires: Start: 07-26-2023 End: 10-25-2023 PSA/PROSTATE SPECIFIC ANTIGEN SCREENING PSA/PROSTATE SPECIFIC ANTIGEN SCREENING Lab Routine BPH with obstruction/lower urinary tract symptoms Expected: 07/26/2023, Expires: 10/25/2023 [facility] Comment on above: Expected: 07/26/2023, Expires: Start: 07-22-2023 [facility] Start: 05-26-2023 Covid-19 Vaccine () Covid-19 Vaccine () [facility] Start: 04-06-2023 [facility] Start: 04-06-2023 [facility] Start: 03-14-2023 Advance Directive Discussion Advance Directive Discussion [facility] Start: 03-14-2023 Behavioral Health Screening Behavioral Health Screening [facility] Start: 03-14-2023 Depression Assessment Depression Assessment [facility] Start: 03-08-2023 End: 06-07-2023 Hepatic function 2000 panel - Serum or Plasma HEPATIC FUNCTION PNL Lab Routine Hypoalbuminemia Alkaline phosphatase elevation Expected: 03/08/2023, Expires: 06/07/2023 [facility] Work Phone: Comment on above: Expected: 03/08/2023, Expires: 4 Start: 01-22-2023 End: 03-24-2023 Comprehensive metabolic 2000 panel - Serum or Plasma COMP METABOLIC PANEL Lab Routine Hyperlipidemia, unspecified hyperlipidemia type Expected: 01/22/2023, Expires: 03/24/2023 [facility] Work Phone: Comment on above: Expected: 01/22/2023, Expires: Start: 01-22-2023 End: 03-24-2023 Lipid 1996 panel - Serum or Plasma LIPID PANEL BASIC Lab Routine Hyperlipidemia, unspecified hyperlipidemia type Expected: 01/22/2023, Expires: 03/24/2023 [facility] Work Phone: Comment on above: Expected: 01/22/2023, Expires: Start: 12-06-2022 [facility] Start: 11-12-2022 Influenza vaccination [facility] Start: 10-27-2022 Patient referral to dietitian [facility] Start: 09-30-2022 End: 09-30-2022 Patient encounter procedure 09/30/2022 1:00 PM EDT Office Visit [facility] [address] [place] [phone] Alok Whitehead, PROTOTYPE ENGINEER MANAGER - CONTRACT CLERK [address] [place] [address] [place] [address] [facility] Start: 09-20-2022 End: 09-20-2022 Admission to same day surgery center 09/20/2022 10:00 AM EDT - 09/20/2022 11:00 AM EDT Surgery [facility] [address] [place] [id number] Clayton Ayon MD [address] [place] [address] [place] [id number] Angioplasty - coronary [facility] Comment on above: Angioplasty - coronary Start: 09-20-2022 Subsequent hospital visit by physician 09/20/2022 10:00 AM EDT Hospital Encounter [facility] [address] [place] [address] Clayton Ayon MD [address] [place] [address] [place] [id number] 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) [facility] Comment on above: 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) Start: 09-14-2022 .doppler Lower extremity vein [facility] Start: 09-13-2022 Patient referral [facility] Work Phone: Start: 09-13-2022 Patient discharge [facility] Start: 07-20-2022 End: 09-19-2022 Basic metabolic 2000 panel - Serum or Plasma BASIC METABOLIC PNL Lab Routine Impaired fasting blood sugar Expected: 07/20/2022, Expires: 09/19/2022 [facility] Work Phone: Comment on above: Expected: 07/20/2022, Expires: 3 Start: 07-20-2022 End: 09-19-2022 CBC panel - Blood by Automated count CBC Lab Routine Essential hypertension Expected: 07/20/2022, Expires: 09/19/2022 [facility] Work Phone: Comment on above: Expected: 07/20/2022, Expires: 3 Start: 07-20-2022 End: 09-19-2022 Hemoglobin A1c in Blood HGB A1C Lab Routine Impaired fasting blood sugar Expected: 07/20/2022, Expires: 09/19/2022 [facility] Work Phone: Comment on above: Expected: 07/20/2022, Expires: 3 Start: 05-18-2022 COVID-19 VACCINE (5 - Moderna series) COVID-19 VACCINE (5 - Moderna series) [facility] Start: 01-20-2022 End: 03-22-2022 Comprehensive metabolic 2000 panel - Serum or Plasma COMP METABOLIC PANEL Lab Routine Hyperlipidemia, unspecified hyperlipidemia type Expected: 01/20/2022, Expires: 03/22/2022 [facility] Work Phone: Comment on above: Expected: 01/20/2022, Expires: 3 Start: 01-20-2022 End: 03-22-2022 Hemoglobin A1c/Hemoglobin.total in Blood HGB A1C Lab Routine Impaired fasting blood sugar Expected: 01/20/2022, Expires: 03/22/2022 [facility] Work Phone: Comment on above: Expected: 01/20/2022, Expires: 3 Start: 01-20-2022 End: 03-22-2022 LIPID PANEL BASIC LIPID PANEL BASIC Lab Routine Hyperlipidemia, unspecified hyperlipidemia type Expected: 01/20/2022, Expires: 03/22/2022 [facility] Work Phone: Comment on above: Expected: 01/20/2022, Expires: 3 Start: 11-12-2021 Influenza vaccination INFLUENZA (#1) [facility] Start: 07-20-2021 End: 09-19-2021 Basic metabolic 2000 panel - Serum or Plasma [facility] Work Phone: Comment on above: Expected: 07/20/2021, Expires: 2 Start: 07-20-2021 End: 09-19-2021 Hemoglobin A1c/Hemoglobin.total in Blood [facility] Work Phone: Comment on above: Expected: 07/20/2021, Expires: 2 Start: 07-01-2021 COVID-19 VACCINE (4 - Booster for Moderna series) COVID-19 VACCINE (4 - Booster for Moderna series) [facility] Start: 04-27-2021 COVID-19 VACCINE (4 - Booster for Moderna series) COVID-19 VACCINE (4 - Booster for Moderna series) [facility] Start: 03-14-2021 ADVANCE DIRECTIVE DISCUSSION ADVANCE DIRECTIVE DISCUSSION [facility] Start: 03-14-2021 DEPRESSION ASSESSMENT DEPRESSION ASSESSMENT [facility] Start: 1997 RSV Vaccine (1 - 1-dose 60+ series) RSV Vaccine (1 - 1-dose 60+ series) [facility] Start: [birth year]24-1953 Anxiety Screening Anxiety Screening [facility] Start: 11-24-1955 Depression Screening Depression Screening [facility] Start: 1949 Depression Screening Depression Screening [facility] Start: 1937 Lipid panel Lipid Panel [facility] Basic metabolic 2007 panel with ionized calcium - Serum or Plasma [facility] Basic metabolic 2007 panel with ionized calcium - Serum or Plasma [facility] Catheterization of l eft heart [facility] CBC W Auto Different ial panel - Blood COMPLETE BLOOD COUNT AND DIFFERENTIAL Lab Routine Lytic bone lesions on xray Prostate cancer (HCC) 07/29/2023 3:27 PM EDT [facility] End: 02-15-2025 CBC W Auto Differential panel - Blood COMPLETE BLOOD COUNT AND DIFFERENTIAL Lab STAT Prostate cancer (HCC) Every 3 months for 5 Occurrences starting 02/16/2024 until 02/15/2025 [facility] Work Phone: Comment on above: Every 3 months for 5 Occurrences startin g 02/16/2024 until 02/15/2025 End: 02-15-2025 Comprehensive metabolic 2000 panel - Serum or Plasma COMPREHENSIVE METABOLIC PANEL Lab Routine Prostate cancer (HCC) Every 3 months for 5 Occurrences starting 02/16/2024 until 02/15/2025 [facility] Comment on above: Every 3 months for 5 Occurrences startin g 02/16/2024 until 02/15/2025 End: 08-23-2024 CT Chest WO contrast CT CHEST WO IVCON Radiology Routine Lytic bone lesions on xray Pneumonitis 1 Occurrences starting 07/25/2023 until 08/23/2024 [facility] Comment on above: 1 Occurrences starting 07/25/2023 until 08/23/2024 End: 07-05-2025 CT Head WO contrast CT BRAIN WO IVCON Radiology Routine Abnormal gait 1 Occurrences starting 06/05/2024 until 07/05/2025 [facility] Comment on above: 1 Occurrences starting 06/05/2024 until 07/05/2025 End: 07-23-2023 ECG COMPLETE ECG COMPLETE ECG Routine Heart murmur 1 Occurrences starting 07/22/2022 until 07/23/2023 [facility] Work Phone: Comment on above: 1 Occurrences starting 07/22/2022 until 07/23/2023 End: 07-23-2023 Echocardiography ECHO Cardiology Routine Heart murmur 1 Occurrences starting 07/22/2022 until 07/23/2023 [facility] Work Phone: Comment on above: 1 Occurrences starting 07/22/2022 until 07/23/2023 Guidance for percutaneous biopsy of Bone IR BONE BIOPSY Radiology Routine Lytic bone lesions on xray Ordered: 08/09/2023 [facility] Work Phone: Comment on above: Ordered: 08/09/2023 Lipid 1996 panel - S dominick or Plasma [facility] Lipid 1996 panel - S dominick or Plasma [facility] MR Cervical spine [facility] End: 03-17-2025 MR Shoulder - right WO contrast MRI SHOULDER WO IVCON RIGHT Radiology Routine Prostate cancer (HCC) Pain in joint of right shoulder Prostate cancer metastatic to bone (HCC) 1 Occurrences starting 02/16/2024 until 03/17/2025 [facility] Comment on above: 1 Occurrences starting 02/16/2024 until 03/17/2025 NM Heart Views W str ess and W radionuclide IV [facility] Patient Education [facility] Work Phone: Patient referral [facility] Work Phone: End: 08-27-2024 PET+CT Guidance for localization of tumor of Whole body-- W [id number] IV NM PET/CT PROSTATE WHOLE BODY IMAGING Radiology Routine Lytic bone lesions on xray Prostate cancer (HCC) 1 Occurrences starting 07/29/2023 until 08/27/2024 [facility] Work Phone: Comment on above: 1 Occurrences starting 07/29/2023 until 08/27/2024 End: 08-31-2024 Prostate specific Ag [Mass/volume] in Serum or Plasma PROSTATE-SPECIFIC ANTIGEN DIAGNOSTIC Lab Routine Prostate cancer (HCC) Every 6 weeks for 8 Occurrences starting 09/01/2023 until 08/31/2024 [facility] Work Phone: Comment on above: Every 6 weeks for 8 Occurrences starting 09/01/2023 until 08/31/2024 End: 02-24-2024 US ABD RIGHT UPPER QUADRANT US ABD RIGHT UPPER QUADRANT Radiology Routine Alkaline phosphatase elevation 1 Occurrences starting 01/25/2023 until 02/24/2024 [facility] Work Phone: Comment on above: 1 Occurrences starting 01/25/2023 until 02/24/2024 End: 06-05-2025 US Lower extremity vein US LEG VEIN DVT [facility] Vascular Lab Routine Leg edema, right 1 Occurrences starting 06/05/2024 until 06/05/2025 [facility] Work Phone: Comment on above: 1 Occurrences starting 06/05/2024 until 06/05/2025 [facility] Immunizations Immunization Date Immunization Notes Care Provider Fa catalino 06-05-2024 COVID-19 vaccine, ag e 12+ yr (PFIZER-BIONTECH COMIRNATY) Mariano Ocampo MD Work Phone: [facility] 12-01-2023 COVID-19 vaccine, ag e 12+ yr (PFIZER-BIONTECH) Mariano Ocampo MD Work Phone: [facility] 12-01-2023 influenza, high dose seasonal, preservative-free Mariano Ocampo MD Work Phone: [facility] 03-21-2023 respiratory syncytia l virus (RSV) vaccine, bivalent (ABRYSVO) Mariano Ocampo MD Work Phone: [facility] 01-25-2023 COVID-19 vaccine, ag e 12+ yr, season (PFIZER-BIONTECH) Mariano Ocampo MD Work Phone: [facility] Work Phone: 01-25-2023 influenza (HD-IIV4) vaccine, age 65+ yr, high dose, quadrivalent, PF (FLUZONE HIGH-DOSE) Mariano Ocampo MD Work Phone: [facility] Work Phone: 01-25-2023 influenza virus vacc ine, unspecified formulation Master Guerra MD Work Phone: [facility] 01-18-2022 COVID-19 vaccine, ag e 12+ yr, bivalent (MODERNA) Mariano Ocampo MD Work Phone: [facility] Work Phone: 12-21-2021 influenza, high dose seasonal, preservative-free Mariano Ocampo MD Work Phone: [facility] 12-21-2021 influenza virus vacc ine, unspecified formulation Clayton Ayon MD Work Phone: [facility] 03-02-2021 tetanus toxoid, redu natividad diphtheria toxoid, and acellular pertussis vaccine, adsorbed Mariano Ocampo MD Work Phone: [facility] Work Phone: 12-18-2020 influenza, high dose seasonal, preservative-free Mariano Ocampo MD Work Phone: [facility] Work Phone: 05-02-2020 COVID-19 vaccine, fu ll dose (MODERNA) Mariano Ocampo MD Work Phone: [facility] Work Phone: 04-04-2020 COVID-19 vaccine, fu ll dose (MODERNA) Mariano Ocampo MD Work Phone: [facility] Work Phone: 02-21-2020 zoster vaccine recombinant Mariano Ocampo MD Work Phone: [facility] Work Phone: 12-04-2019 influenza, high dose seasonal, preservative-free Mariano Ocampo MD Work Phone: [facility] Work Phone: 12-04-2019 influenza, injectabl e, quadrivalent, preservative free Mariano Ocampo MD Work Phone: [facility] Work Phone: 12-04-2019 zoster vaccine recombinant Mariano Ocampo MD Work Phone: [facility] Work Phone: 12-18-2018 influenza, high dose seasonal, preservative-free Mariano Ocampo MD Work Phone: [facility] Work Phone: 12-27-2017 influenza, high dose seasonal, preservative-free Mariano Ocampo MD Work Phone: [facility] Work Phone: 12-27-2017 Seasonal trivalent influenza vaccine, adjuvanted, preservative free Mariano Ocampo MD Work Phone: [facility] Work Phone: 12-28-2016 influenza, high dose seasonal, preservative-free Mariano Ocampo MD Work Phone: [facility] 11-25-2015 influenza, high dose seasonal, preservative-free Mariano Ocampo MD Work Phone: [facility] 01-08-2015 pneumococcal conjuga te vaccine, 13 valent Mariano Ocampo MD Work Phone: [facility] 12-27-2014 influenza, seasonal, injectable Mariano Ocampo MD Work Phone: [facility] 01-07-2014 pneumococcal polysaccharide vaccine, 23 valent Mariano Ocampo MD Work Phone: [facility] 12-31-2013 influenza, seasonal, injectable Mariano Ocampo MD Work Phone: [facility] 12-04-2012 influenza virus vacc ine, unspecified formulation Mariano Ocampo MD Work Phone: [facility] Work Phone: 12-14-2011 influenza virus vacc ine, unspecified formulation Mariano Ocampo MD Work Phone: [facility] Work Phone: 02-16-2010 zoster vaccine, live Mariano Ocampo MD Work Phone: [facility] Work Phone: 01-08-2010 influenza virus vacc ine, whole virus Mariano Ocampo MD Work Phone: [facility] Work Phone: 09-18-2009 tetanus and diphther ia toxoids, adsorbed, preservative free, for adult use (2 Lf of tetanus toxoid and 2 Lf of diphtheria toxoid) Mariano Ocampo MD Work Phone: [facility] Work Phone: 01-07-2009 influenza virus vacc ine, whole virus Mariano Ocampo MD Work Phone: [facility] Work Phone: 02-01-2008 influenza virus vacc ine, whole virus Mariano Ocampo MD Work Phone: [facility] Work Phone: 01-24-2007 influenza virus vacc ine, whole virus Mariano Ocampo MD Work Phone: [facility] Work Phone: Payers Date Payer Category Payer Self-pay [id number] 2020 Medicare [employer] MEDICARE A ETNA MEDICARE PPO [id number] 2020-Present [phone] [address] [place] [address] PPO [id number] 2020 Medicare [id number] 2020 Medicare (Managed Care) [employer] PR DICARE [id number] 2009 Private Health Insurance [id number] Unknown [id number] Unknown [id number] Unknown [id number] Unknown [id number] Unknown [id number] Unknown [id number] Unknown [id number] Unknown [id number] Social History Date Type Detail Facility Start: 02-27-2018 End: 01-20-2022 Tobacco smoking status NHIS Never smoked tobacco [facility] Work Phone: Start: 07-20-2021 End: 08-02-2024 Alcohol intake Current non-drinker of alcohol (finding) [facility] Start: 02-27-2018 End: 01-20-2022 Tobacco Comment No smoking in childhood home. [facility] Start: 1935 Sex Assigned At Not on file [facility] Start: 12-20-2020 End: 09-30-2022 Exposure to SARS-CoV-2 (event) Not sure [facility] Work Phone: Start: 02-27-2018 End: 01-20-2022 Tobacco use and exposure Smokeless tobacco non-user [facility] Work Phone: Start: 09-13-2022 End: 07-21-2023 Tobacco smoking status NHIS Unknown if ever smoked [facility] Start: 1935 Sex Assigned At Male W [facility] Start: 09-16-2022 End: 09-30-2022 Alcohol intake Lifetime non-drinker (finding) [facility] Start: 07-22-2022 End: 09-16-2022 History of Social function [facility] Start: 07-22-2022 End: 09-16-2022 Tobacco use panel [facility] Within the last year , have you been afraid of your partner or ex-partner? No [facility] Adult Depression Screening Assessment 0 [facility] Work Phone: How often to you hav e a drink containing alcohol? Never [facility] Medical Equipment Procedure Code Equipment Code Equipment Origin al Text Equipment Identifier Dates Chiquita solano [id number] - [id number] Start: 09-20-2022 Functional Status Date Assessment Result Facility 06-05-2024 Total score [AUDIT-C] 0 06/06/19 10:34 AM EDT Mariano Ocampo MD [facility] 09-24-2014 Are you deaf, or do you have serious difficulty hearing No 09/24/2014 2:09 PM EDT Dinah Nunez LPN No [facility] 09-24-2014 Are you blind, or do you have serious difficulty seeing, even when wearing glasses No 09/24/2014 2:09 PM EDT Dinah Nunez LPN No [facility] 09-24-2014 Do you have serious difficulty walking or climbing stairs No 09/24/2014 2:09 PM EDT Dinah Nunez LPN No [facility] 09-24-2014 Do you have difficul ty dressing or bathing No 09/24/2014 2:09 PM EDT Dinah Nunez LPN No [facility] 09-24-2014 Because of a physica l, mental, or emotional condition, do you have difficulty doing errands alone such as visiting a physician's office or shopping No 09/24/2014 2:09 PM EDT Dinah Nunez LPN No [facility] Mental Status Date Assessment Result Facility 07-21-2023 Cognitive function Level Of Cons ciousness Awake;Alert;Appropriate;Fol lows Commands [facility] Work Phone: 04-06-2023 Cognitive function Voice/Name [facility] Work Phone: 12-06-2022 Cognitive function Voice/Name [facility] Work Phone: 09-24-2014 Because of a physica l, mental, or emotional condition, do you have serious difficulty concentrating, remembering, or making decisions No 09/24/2014 2:09 PM EDT Dinah Nunez LPN No [facility] Clinical Notes 08-03-2017 to 08-21-2024 Van (Dairy Farm Manager)Lorri - 08/21/2024 9:34 AM EDT Note Date & Type Note Facility 08-21-2024 History of Present illness Narrative [facility] Assessment Medication(s): Xtandi Reviewed OV note on 08/02. Pt endorses fatigue impacting the amount of yard work he was previously able to do - otherwise tolerating treatment generally well. Jazmyn Ellison PROTOTYPE ENGINEER MANAGER.CONTRACT CLERK recommends continuation of therapy with no changes at this time. Refill appropriate. Labs reviewed from 08/09 - 07/26: within continuation parameters Latest Reference Range & Units 05/30/24 14:13 07/26/24 08:30 PSA <2.60 ng/mL 19.34 (H) 9.85 (H) Next clinic visit scheduled 10/25/24. ALLERGIES Allergen Reactions Zetia [Ezetimibe] Other: See Comments Joint pain Gabapentin Shortness of Breath, Other: See Comments dizziness Mobic [Meloxicam] GI Upset Sulfa (Sulfonamide * unkown Patient's current medication list and adherence status to current therapy were reviewed by Specialty Pharmacy clinical pharmacist to identify any new drug interactions or non-compliance to therapy. Therapy continues to be appropriate for disease, patient response, and medical condition. Verification of therapeutic benefit and effectiveness with current therapy was completed. Adverse events, barriers in adherence, and side effects were assessed and addressed if applicable. Will proceed with refill with no changes in therapy - patient progressing towards achieving therapeutic goals based on medication-specific laboratory parameters, disease state markers and outcomes. Office/provider notes have been reviewed prior to dispensing the medication. Hieu Yates, PhiD Clinical Pharmacist, Oncology [facility] P: , F: Pool: P [facility] Pool #: [id number] Miller Apprentice Assessment Patient confirmed: Yes Med/dose confirmed: Yes Supplies needed: No supplies needed Missed doses: No Estimated days supply on hand: 5 Copay amount: 0 Payment confirmed: Yes Delivery method: FedEx Signature required: Waived on patient request Delivery address: [address] [place] [id number] Delivery date: 08/23/24 Questions or concerns for the pharmacist?: No Did you have any side effects believed to be related to this medication, that resulted in hospitalization?: No Current Outpatient Medications on File Prior to Visit Medication Sig hydroCHLOROthiazide 25 mg tablet Take 25 mg by mouth every morning. amLODIPine (NORVASC) 2.5 mg tablet Take 1 tablet by mouth once daily. enzalutamide (XTANDI) 40 mg capsule Take 4 capsules (160 mg) by mouth once daily. tamsulosin (FLOMAX) 0.4 mg Take 1 capsule by mouth daily at bedtime. finasteride (PROSCAR) 5 mg tablet Take 1 tablet by mouth once daily. atorvastatin (LIPITOR) 40 mg tablet Take 1 tablet by mouth daily at bedtime. For cholesterol. multivitamin/iron/folic acid (CENTRUM COMPLETE ORAL) Take 1 tablet by mouth once daily. albuterol HFA (PROVENTIL HFA, VENTOLIN HFA) 90 mcg/actuation inhaler Inhale 2 Puffs as instructed every 6 hours as needed for wheezing/shortness of breath. loratadine (CLARITIN) 10 mg tablet Take 1 tablet by mouth once daily. clopidogrel (PLAVIX) 75 mg tablet Take 1 tablet by mouth once daily. famotidine (PEPCID) 20 mg tablet Take 1 tablet by mouth every afternoon. metoprolol succinate ER (TOPROL XL) 25 mg 24 hr tablet Take 12.5 mg by mouth daily at bedtime. nitroglycerin sublingual (NITROQUICK) 0.4 mg SL tablet dissolve 1 tablet under the tongue every 5 minutes if needed for ... (REFER TO PRESCRIPTION NOTES). aspirin, enteric coated (ASPIRIN, ENTERIC COATED) 81 mg EC tablet Take 81 mg by mouth once daily. acetaminophen (TYLENOL EXTRA [...] VIT C/DL-E AC/LUT/COPPER/ZNOX (PRESERVISION ORAL) Take 1 tablet by mouth two times a day. Sodium Chloride (OCEAN NASAL) 0.65 % NASAL Mullen Use 1 [place] in the nose as needed. No current facility-administered medications on file prior to visit. [facility] SPECIALTY CLINICAL ASSESSMENT - HEMATOLOGY ONCOLOGY V6: Assessment to use: Refill Date of influenza vaccination reminder: 05/17/2024 Date of most recent vaccination assessment: 05/17/2024 Treatment Plan Information: Dx: mCSPC Tx Hx: lupron Tx Plan: Xtandi +lupron Medication: Xtandi Dose: 160mg Sig: Take 4 capsules (160 mg) by mouth once daily. Admin/Storage: Same time each day, with or without food, hazardous A/E/warnings: fractures/falls, PRES, seizures, HTN, edema, hot flash, hyperglycemia, hypermagnesmia, hyponatremia, constipation, diarrhea, decreased appetite, nausea, fatigue, arthralgia, asthenia, back pain, musculoskeletal pain Lab/Monitoring: CBC with differential and liver function tests: baseline and periodic blood pressure : baseline and periodic Monitor for signs/symptoms of ischemic heart disease, posterior reversible encephalopathy syndrome, and seizure D/I with Xtandi: Category C with amlodipine and atorvastatin-CY Inducers (Strong) may decrease the serum concentration of AmLODIPine. Monitor for reduced amlodipine/atorvastatin efficacy Category C with clopidogrel- CYP2C8 Inhibitors (Moderate) may increase serum concentrations of the active metabolite(s) of Enzalutamide. Monitor for increased xtandi toxicity Est. Tx Plan Start Date: No information available Estimated Start Date Info: Per Dr. Guerra's discretion Est. Estimated Treatment Duration: Continue until disease progression or unacceptable toxicity. Lorri Araujo ([employer]) documented in this encounter [facility] 08-21-2024 Note HNO ID: [id number] Author: HIEU YATES RPh Service: ? Author Type: ? Type: Progress Notes Filed: 08/21/2024 10:43 Note Text: [facility] Assessment Medication(s): Xtandi Reviewed OV note on 08/02. Pt endorses fatigue impacting the amount of yard work he was previously able to do - otherwise tolerating treatment generally well. Jazmyn Ellison PROTOTYPE ENGINEER MANAGER.CONTRACT CLERK recommends continuation of therapy with no changes at this time. Refill appropriate. Labs reviewed from 08/09 - 07/26: within continuation parameters Latest Reference Range AND Units 05/30/24 14:13 07/26/24 08:30 PSA <2.60 ng/mL 19.34 (H) 9.85 (H) Next clinic visit scheduled 10/25/24. ALLERGIES Allergen Reactions Zetia [Ezetimibe] Other: See Comments Joint pain Gabapentin Shortness of Breath, Other: See Comments dizziness Mobic [Meloxicam] GI Upset Sulfa (Sulfonamide * unkown Patient's current medication list and adherence status to current therapy were reviewed by Specialty Pharmacy clinical pharmacist to identify any new drug interactions or non-compliance to therapy. Therapy continues to be appropriate for disease, patient response, and medical condition. Verification of therapeutic benefit and effectiveness with current therapy was completed. Adverse events, barriers in adherence, and side effects were assessed and addressed if applicable. Will proceed with refill with no changes in therapy - patient progressing towards achieving therapeutic goals based on medication-specific laboratory parameters, disease state markers and outcomes. Office/provider notes have been reviewed prior to dispensing the medication. Hieu Yates, PhiD Clinical Pharmacist, Oncology [facility] P: , F: Pool: P [facility] Pool #: [id number] Miller Apprentice Assessment Patient confirmed: Yes Med/dose confirmed: Yes Supplies needed: No supplies needed Missed doses: No Estimated days supply on hand: 5 Copay amount: 0 Payment confirmed: Yes Delivery method: FedEx Signature required: Waived on patient request Delivery address: [address] [place] [id number] Delivery date: 08/23/24 Questions or concerns for the pharmacist?: No Did you have any side effects believed to be related to this medication, that resulted in hospitalization?: No Current Outpatient Medications on File Prior to Visit Medication Sig hydroCHLOROthiazide 25 mg tablet Take 25 mg by mouth every morning. amLODIPine (NORVASC) 2.5 mg tablet Take 1 tablet by mouth once daily. enzalutamide (XTANDI) 40 mg capsule Take 4 capsules (160 mg) by mouth once daily. tamsulosin (FLOMAX) 0.4 mg Take 1 capsule by mouth daily at bedtime. finasteride (PROSCAR) 5 mg tablet Take 1 tablet by mouth once daily. atorvastatin (LIPITOR) 40 mg tablet Take 1 tablet by mouth daily at bedtime. For cholesterol. multivitamin/iron/folic acid (CENTRUM COMPLETE ORAL) Take 1 tablet by mouth once daily. albuterol HFA (PROVENTIL HFA, VENTOLIN HFA) 90 mcg/actuation inhaler Inhale 2 Puffs as instructed every 6 hours as needed for wheezing/shortness of breath. loratadine (CLARITIN) 10 mg tablet Take 1 tablet by mouth once daily. clopidogrel (PLAVIX) 75 mg tablet Take 1 tablet by mouth once daily. famotidine (PEPCID) 20 mg tablet Take 1 tablet by mouth every afternoon. metoprolol succinate ER (TOPROL XL) 25 mg 24 hr tablet Take 12.5 mg by mouth daily at bedtime. nitroglycerin sublingual (NITROQUICK) 0.4 mg SL tablet dissolve 1 tablet under the tongue every 5 minutes if needed for ... (REFER TO PRESCRIPTION NOTES). aspirin, enteric coated (ASPIRIN, ENTERIC COATED) 81 mg EC tablet Take 81 mg by mouth once daily. acetaminophen (TYLENOL EXTRA [...] VIT C/DL-E AC/LUT/COPPER/ZNOX (PRESERVISION ORAL) Take 1 tablet by mouth two times a day. Sodium Chloride (OCEAN NASAL) 0.65 % NASAL Mullen Use 1 [place] in the nose as needed. No current facility-administered medications on file prior to visit. [facility] RX SPECIALTY CLINICAL ASSESSMENT - HEMATOLOGY ONCOLOGY V6: Assessment to use: Refill Date of influenza vaccination reminder: 05/17/2024 Date of most recent vaccination assessment: 05/17/2024 Treatment Plan Information: Dx: mCSPC Tx Hx: lupron Tx Plan: Xtandi +lupron Medication: Xtandi Dose: 160mg Sig: Take 4 capsules (160 mg) by mouth once daily. Admin/Storage: Same time each day, with or without food, hazardous A/E/warnings: fractures/falls, PRES, seizures, HTN, edema, hot flash, hyperglycemia, hypermagnesmia, hyponatremia, constipation, diarrhea, decreased appetite, nausea, fatigue, arthralgi (more content not included)... [facility] 08-07-2024 Evaluation note Diagnosis Onset Date Resolution Dizziness acute August 07, 2024 8:59am Fatigue acute August 07, 2024 8:59am CAD (coronary artery disease) chronic August 07, 2024 8:59am Essential hypertension chronic Ma y 2024 8:59am Mixed hyperlipidemia chronic August 07, 2024 8:59am Nonrheumatic aortic (valve) stenosis chronic August 07, 2024 8:59am Hx of heart artery stent resolved August 07, 2024 8:59am [facility] Work Phone: 1(824) 122-860705-22-2025 NoteHNO ID: [id number] Author: JAZMYN ELLISON, ? Service: ? Author Type: Nurse Practitioner Type: Progress Notes Filed: 08/02/2024 15:34 Note Text: Everton Pardo 1935 08/02/2024 HISTORY OF PRESENT ILLNESS: Everton Pardo is a 87 year old male referred by Dr Ocampo re PSA 5000, bone lesions. Saw Dr Yue Casodex written he took last dose of Rx 2 days ago. Had a bone biopsy 08-30-23. Showed metastatic prostate cancer. Here for follow up and first lupron injection. Feels ok, no pain, just tired. Discussed SE lupron, general treatment approach to prostate cancer, treatment goals. Here for follow up, doing well. PSA down, rate of decline is much lower now We have clearance for zometa Discussed adding enzalutamide Shoulder MRI reviewed Interval Hx: Pt presents with spouse prior to injection and zometa. Reports more fatigue since beginning treatments. No longer able to do a lot of the yard work that he was doing prior to diagnosis. Reviewed recent labs and imaging with patient. Significant improvement in PSA from diagnosis. He is tolerating treatment generally well aside from fatigue. Denies HF. Occasional NS. Denies new aches or pains. No SOB, CP, or palpitations. No changes in bowel or bladder habits. No rash or skin changes. Denies bleeding or bruising. 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 PSA down significantly, started on enzalutamide, tolerating well Reviewed general diagnosis and course of treatment with patient in detail today. RECOMMENDATION/PLAN: 1. Lupron and zometa q 3 months 2. started enzalutamide 3. Back q 3 months with PSA. Written and verbal health teaching given to patient, patient verbalizes understanding and agrees with treatment plan. 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 Mccormack, immunotherapy. 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 Diverticulosis of colon 06/28/2001 Tortuous colon ELEVATED PROSTATE SPECIFIC ANTIGEN 10/19/2007 PSA 3.8 in 9-06, 4.7 in 4-08, 4.3 in 7-09: Malgieri rec routine follow up Environmental allergies Essential hypertension 10/08/2019 Gastritis 08/13/1999 GENERAL OSTEOARTHROSIS 11/29/2005 GOUT NOS 09/03/2008 Uric acid 5.8 in 6-09, 7.9 in 8-09 (during acute attack) Hearing loss of both ears 01/07/2014 Hypertrophy of prostate with urinary obstruction and other lower urinary tract symptoms (LUTS) 10/19/2007 Lumbago 09/03/2008 MRI 10: small central herniation at L4-5, mild DDD L4-5 and L5-S1 Rec Tylenol and PT in 08-20: need to review old MRI and consider spinal stenosis Reviewed the importance of weight loss as of 08-20 Nonrheumatic aortic valve stenosis 08/13/2022 Periodic limb movement disorder (PLMD) 07/19/2007 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 I'm not using it anymore. Snoring PAST SURGICAL HISTORY Procedure Laterality Date APPENDECTOMY 1945 CC CORONARY STENT 09/20/2022 PCI diagonal; RUPESH proximal pLAD x 2, OM1 x 1, and RCA x 1. COLONOSCOPY 08/21/2018 COLONOSCOPY FLX DX W/COLLJ SPEC WHEN PFRMD 06/28/2001 Colonoscopy ESOPHAGOGASTRODUODENOSCOPY TRANSORAL DIAGNOSTIC 08/02/2001 EGD ESOPHAGOGASTRODUODENOSCOPY TRANSORAL DIAGNOSTIC 12/15/2015 EGD LEFT HEART CATH,PERCUTANEOUS 09/13/2022 PAST SURGICAL HISTORY OF 2010 cysts, skin lesions, basal cell cancer PROSTATE BIOPSY 08/2012 FAMILY HISTORY Problem Relation Age of Onset Cancer Mother Pt states does not remember type Heart Father [place] age 60s GI Sister gastrectomy Cancer Sister stomach cancer other (fibromyalgia) Sister Prostate Cancer Brother Heart disease Brother pacemaker No Known Problems Other Lung disease Social History Tobacco Use Smoking status: Never Smokeless tobacco: Never Tobacco comments: No smoking in childhood home. Vaping Use Vaping status: Never Used Substance Use Topics Alcohol use: No Drug use: No ALLERGIES: ALLERGIES Allergen Reactions Zetia [Ezetimibe] Other: See Comments Joint pain Gabapentin Shortness of Breath, Other: See Comments dizziness Mobic [Meloxicam] GI Upset Sulfa (Sulfonamide * unkown CURRENT OUTPATIENT MEDICATIONS: hydroCHLOROthiazide 25 mg tabletTake 25 mg by mouth every morning.Disp: Rfl: amLODIPine (NORVASC) 2.5 mg tabletTake 1 tablet by mouth once daily.Disp: 90 tabletRfl: 3 enzalutamide 40 mgTake 4 capsules (160 mg) by mouth once da (more content not included)...[facility]05-22-2025 NoteHNO ID: [id number] Author: JULIET OTRRES LPN Service: ? Author Type: LICENSED NURSE Type: Progress Notes Filed: 08/02/2024 15:34 Note Text: Est. Pt, discuss recent lab results, poss tx today [facility] [place] Telephone encounter Note * Telephone Encounter - Gemma Peterson LPN - 07/25/2024 1:48 PM EDT Patient Silke asked to have copy of the CT brain results faxed to [facility] fax number [phone]. Printed and faxed as requested. [facility]05-14-2025 Miscellaneous Notes* Telephone Encounter - Gemma Peterson LPN - 07/25/2024 1:48 PM EDT Patient Silke asked to have copy of the CT brain results faxed to [facility] fax number [phone]. Printed and faxed as requested. [facility] Telephone encounter Note * Telephone Encounter - Rosalba Sanders LPN - 07/23/2024 10:39 AM EDT Images from the original note were not included. Mariano rivero MD to Everton Pardo 07/23/24 7:56 AM Mr. Pardo there is a collection of blood or fluid under the brain lining that seems chronic. Still I recommend neurosurgery evaluation. Please go to the ER for headache, worsening imbalance, or stroke like symptoms. Take extra care against falling and head injury. -- Pt's notified of results message concerning CT. voiced understanding. transferredto PSS to schedule with neurosurgery. Rosalba Sanders LPN [facility]05-12-2025 Miscellaneous Notes* Telephone Encounter - Rosalba Sanders LPN - 07/23/2024 10:39 AM EDT Images from the original note were not included. Mariano rivero MD to Everton Pardo 07/23/24 7:56 AM Mr. Pardo there is a collection of blood or fluid under the brain lining that seems chronic. Still I recommend neurosurgery evaluation. Please go to the ER for headache, worsening imbalance, or stroke like symptoms. Take extra care against falling and head injury. -- Pt's notified of results message concerning CT. voiced understanding. transferredto PSS to schedule with neurosurgery. Rosalba Sanders LPN [facility]25 NoteHNO ID: [id number] Author: CLAYTON GILL MD Service: ? Author Type: Physician Type: Progress Notes Filed: 07/18/2024 14:31 Note Text: [facility] Subjective Everton Pardo is a 88 year old male. Patient presents with: lump on left wrist and hand: Just noticed it-had a CT today and started after that Patient was at CT scan of the brain less than an hour ago. At the end of the procedure he noticed a somewhat tender lump on his left wrist. It looks blue like there is blood under it. He does not recall any injury and he did not have an IV for the test. The lump has enlarged since he first noticed it. There is some discomfort with wrist range of motion. He takes aspirin and Plavix. Review of Systems Objective BP 128/78 Pulse 64 Temp 36.2 ?C (97.2 ?F) (Tympanic) Resp 18 Wt 74.6 kg (164 lb 7.4 oz) SpO2 99% BMI 25.76 kg/m? Physical Exam Constitutional: General: He is not in acute distress. Appearance: He is not toxic-appearing. Musculoskeletal: Right wrist: Tenderness present. No bony tenderness. Decreased range of motion. Normal pulse. Hands: Comments: 4-5cm x1cm tall hematoma over the dorsal left radial wrist. Mild discomfort with palpation or wrist ROM. No bony tenderness. 2+/4 radial pulse. Capillary refill of fingers less than 2 seconds. Neurological: Mental Status: He is alert. {ASSESSMENT/PLAN: 1. Hematoma of left wrist - ICD9: 923.21, ICD10: S60.212A Pressure dressing applied to the left wrist with Coban. He may also use ice as needed. Remove dressing with paresthesia or poor circulation to the hand. Expectant management for hematoma which should resolve over the next few weeks. Consider follow up with concerns or worsening symptoms. Clayton Gill MD Differential Diagnoses - Hematoma from occult injury - Fracture is less likely for the following reason(s): No bony tenderness on exam - Malignant mass is less likely for the following reason(s): Abrupt onset and growth of the lesion [facility] History of Present illness Narrative* Clayton Gill MD - 07/18/2024 2:23 PM EDT Images from the original note were not included. [facility] Subjective Everton Pardo is a 88 year old male. Patient presents with: lump on left wrist and hand: Just noticed it-had a CT today and started after that Patient was at CT scan of the brain less than an hour ago. At the end of the procedure he noticed asomewhat tender lump on his left wrist. It looks blue like there is blood under it. He does not recall any injury and he did not have an IV for the test. The lump has enlarged since he first noticed it. There is some discomfort with wrist range of motion. He takes aspirin and Plavix. Review of Systems Objective BP 128/78 Pulse 64 Temp 36.2 C (97.2 F) (Tympanic) Resp 18 Wt 74.6 kg (164 lb 7.4 oz) SpO2 99% BMI 25.76 kg/m Physical Exam Constitutional: General: He is not in acute distress. Appearance: He is not toxic-appearing. Musculoskeletal: Right wrist: Tenderness present. No bony tenderness. Decreased range of motion. Normal pulse. Hands: Comments: 4-5cm x1cm tall hematoma over the dorsal left radial wrist. Mild discomfort with palpation or wrist ROM. No bony tenderness. 2+/4 radial pulse. Capillary refill of fingers less than 2 seconds. Neurological: Mental Status: He is alert. {ASSESSMENT/PLAN: 1. Hematoma of left wrist - ICD9: 923.21, ICD10: S60.212A Pressure dressing applied to the left wrist with Coban. He may also use ice as needed. Remove dressing with paresthesia or poor circulation to the hand. Expectant management for hematoma which should resolve over the next few weeks. Consider follow up with concerns or worsening symptoms. Clayton Gill MD Differential Diagnoses - Hematoma from occult injury - Fracture is less likely for the following reason(s): No bony tenderness on exam - Malignant mass is less likely for the following reason(s): Abrupt onset and growth of the lesion Procedures [facility] History of Present illness Narrative* Jeannette Colin RT(R) - 07/18/2024 1:00 PM EDT Radiology Service Progress Note PATIENT NAME: Everton Pardo DATE OF SERVICE: July 18, 2024 TIME: 3:54 PM PATIENT IDENTITY VERIFICATION COMPLETED USING TWO (2) IDENTIFIERS: Name and Date of confirmedby patient verbally. FALL SCREENING: Has the patient had 2 falls in the last year or 1 fall with injury or currently using an Ambulatory Assistive Device (Walker, Cane, Wheelchair, Crutches, etc.)? No PATIENT GENDER DATA: Assigned male at PATIENT RELEVANT IMPLANT DATA REVIEWED: Yes PATIENT PRESENTS WITH AN IMPLANTABLE OR ATTACHED SALES PROFESSIONAL: No RADIOLOGY DEPARTMENT: CT; Exam(s) Completed: Brain PERIPHERAL IV DATA: Not applicable SIGNED BY: SALVADOR Galdamez) July 18, 2024 3:54 PM documented in [facility] encounterWay[facility]05-07-2025 NoteHNO ID: [id number] Author: JEANNETTE COLIN RT(R) Service: ? Author Type: Miller Apprentice Type: Progress Notes Filed: 07/18/2024 15:54 Note Text: Radiology Service Progress Note PATIENT NAME: Everton Pardo DATE OF SERVICE: July 18, 2024 TIME: 3:54 PM PATIENT IDENTITY VERIFICATION COMPLETED USING TWO (2) IDENTIFIERS: Name and Date of confirmed by patient verbally. FALL SCREENING: Has the patient had 2 falls in the last year or 1 fall with injury or currently using an Ambulatory Assistive Device (Walker, Cane, Wheelchair, Crutches, etc.)? No PATIENT GENDER DATA: Assigned male at PATIENT RELEVANT IMPLANT DATA REVIEWED: Yes PATIENT PRESENTS WITH AN IMPLANTABLE OR ATTACHED SALES PROFESSIONAL: No RADIOLOGY DEPARTMENT: CT; Exam(s) Completed: Brain PERIPHERAL IV DATA: Not applicable SIGNED BY: RT Rudolph(Cody) July 18, 2024 3:54 [place] [address]-02-2025 NoteHNO ID: [id number] Author: HIEU YATES [facility]ly [facility] Service: ? Author Type: ? Type: Progress Notes Filed: 07/24/2024 13:20 Note Text: [facility] Specialty Refill Assessment Medication(s): jennifer Reviewed chart notes since last [facility] encounter. Pt has hematoma on left wrist and was referred to neurosurgery regarding blood/fluid collection under his brain lining. No new labs to review. No changes to therapy at this time. Refill appropriate. Next clinic visit scheduled . ALLERGIES Allergen Reactions Zetia [Ezetimibe] Other: See Comments Joint pain Gabapentin Shortness of Breath, Other: See Comments dizziness Mobic [Meloxicam] GI Upset Sulfa (Sulfonamide * unkown Patient's current medication list and adherence status to current therapy were reviewed by Specialty Pharmacy clinical pharmacist to identify any new drug interactions or non-compliance to therapy. Therapy continues to be appropriate for disease, patient response, and medical condition. Verification of therapeutic benefit and effectiveness with current therapy was completed. Adverse events, barriers in adherence, and side effects were assessed and addressed if applicable. Will proceed with refill with no changes in therapy - patient progressing towards achieving therapeutic goals based on medication-specific laboratory parameters, disease state markers and outcomes. Office/provider notes have been reviewed prior to dispensing the medication. Hieu Yates, PharmD Clinical Pharmacist, Oncology [facility] P: , F: Pool: P [facility] Pool #: [id number] Miller Apprentice Assessment Patient confirmed: Yes Med/dose confirmed: Yes Supplies needed: No supplies needed Missed doses: No Estimated days supply on hand: 14 Copay amount: 0 Delivery method: FedEx Signature required: Waived on patient request Delivery address: [address] [place] [address] Delivery date: 07/26/24 Questions or concerns for the pharmacist?: No Did you have any side effects believed to be related to this medication, that resulted in hospitalization?: No Current Outpatient Medications on File Prior to Visit Medication Sig amLODIPine (NORVASC) 2.5 mg tablet Take 1 tablet by mouth once daily. enzalutamide 40 mg Take 4 capsules (160 mg) by mouth once daily. tamsulosin (FLOMAX) 0.4 mg Take 1 capsule by mouth daily at bedtime. finasteride (PROSCAR) 5 mg tablet Take 1 tablet by mouth once daily. atorvastatin (LIPITOR) 40 mg tablet Take 1 tablet by mouth daily at bedtime. For cholesterol. multivitamin/iron/folic acid (CENTRUM COMPLETE ORAL) Take 1 tablet by mouth once daily. albuterol HFA (PROVENTIL HFA, VENTOLIN HFA) 90 mcg/actuation inhaler Inhale 2 Puffs as instructed every 6 hours as needed for wheezing/shortness of breath. loratadine (CLARITIN) 10 mg tablet Take 1 tablet by mouth once daily. clopidogrel (PLAVIX) 75 mg tablet Take 1 tablet by mouth once daily. famotidine (PEPCID) 20 mg tablet Take 1 tablet by mouth every afternoon. metoprolol succinate ER (TOPROL XL) 25 mg 24 hr tablet Take 12.5 mg by mouth daily at bedtime. nitroglycerin sublingual (NITROQUICK) 0.4 mg SL tablet dissolve 1 tablet under the tongue every 5 minutes if needed for ... (REFER TO PRESCRIPTION NOTES). aspirin, enteric coated (ASPIRIN, ENTERIC COATED) 81 mg EC tablet Take 81 mg by mouth once daily. acetaminophen (TYLENOL EXTRA [...] VIT C/DL-E AC/LUT/COPPER/ZNOX (PRESERVISION ORAL) Take 1 tablet by mouth two times a day. Sodium Chloride (OCEAN NASAL) 0.65 % NASAL Mullen Use 1 [place] in the nose as needed. No current facility-administered medications on file prior to visit. [facility] RX SPECIALTY CLINICAL ASSESSMENT - HEMATOLOGY ONCOLOGY V6: Ivent complete: No Assessment to use: Refill Lab monitoring inclusive of CBC, Chem-7, and other labs as pertinent for therapy: Yes Chemo cycle timing assessment: N/A Assessment of injection issues: N/A Current medication list (including drug interaction assessment): Yes Experience of adverse reactions to the medication: Yes Date of influenza vaccination reminder: 05/17/2024 Date of most recent vaccination assessment: 05/17/2024 Treatment Plan Information: Dx: mCSPC Tx Hx: lupron Tx Plan: Xtandi +lupron Medication: Xtandi Dose: 160mg Sig: Take 4 capsules (160 mg) by mouth once daily. Admin/Storage: Same time each day, with or without food, hazardous A/E/warnings: fractures/falls, PRES, seizures, HTN, edema, hot flash, hyperglycemia, hypermagnesmia, hyponatremia, constipation, diarrhea, decreased appetite, nausea, fat (more content not included)...[facility]04-22-2025 NoteHNO ID: [id number] Author: NISHANT MOROCHO RN Service: ? Author Type: Registered Nurse Type: Progress Notes Filed: 07/03/2024 11:53 Note Text: Value Based Care Coordination Chart Review Provider Action / FYI: Upon review of patient chart, the patient is excluded from Chronic Disease Management Patient is not a candidate for CDM at this time and placed in the following status: Deferred- current ca treatment Action taken: No action needed . Nishant Morocho RN July 03, 2024 11:52 [facility]04-22-2025 History of Present illness Narrative* Nishant Morocho RN - 07/03/2024 11:52 AM EDT Value Based Care Coordination Chart Review Provider Action / FYI: Upon review of patient chart, the patient is excluded from Chronic Disease Management Patient is not a candidate for CDM at this time and placed in the following status: Deferred- current ca treatment Action taken: No action needed . Nishant Morocho RN July 03, 2024 11:52 AM documented in this encounterWayne Hospital04-22-2025 NotePatient Outreach ([facility]) EVERTON PARDO ([id number]) 1935 M Date Time Provider Department 07/03/[facility] [place] visit today, we recorded the following information about you: Nishant Morocho RN 07/03/2024 11:53 AM Signed Value Based Care Coordination Chart Review Provider Action / FYI: Upon review of patient chart, the patient is excluded from Chronic Disease Management Patient is not a candidate for CDM at this time and placed in the following status: Deferred- current ca treatment Action taken: No action needed . Nishant Morocho RN July 03, 2024 11:52 AM Allergies As of Date: 07/03/2024 Noted Allergy Reaction ZETIA (EZETIMIBE) 04/07/2023 14 - Other: See Comments Comments: Joint pain GABAPENTIN 02/25/2015 12 - Shortness of Breath 14 - Other: See Comments Comments: dizziness MOBIC (MELOXICAM) 06/28/2006 8 - GI Upset SULFA (SULFONAMIDE ANTIBIOTICS) 11/29/2005 Comments: unkown Date Reviewed: 06/05/2024 Reviewed by: Ana M Gonzalez LPN - Fully Assessed Reason for Visit: Res Counselor- Other [1215] Cmt: CDM chart review Prescriptions as of 07/03/2024 - amLODIPine (NORVASC) 2.5 mg tablet Take 1 tablet by mouth once daily. - enzalutamide 40 mg Take 4 capsules (160 mg) by mouth once daily. - tamsulosin (FLOMAX) 0.4 mg Take 1 capsule by mouth daily at bedtime. - finasteride (PROSCAR) 5 mg tablet Take 1 tablet by mouth once daily. - atorvastatin (LIPITOR) 40 mg tablet Take 1 tablet by mouth daily at bedtime. For cholesterol. - multivitamin/iron/folic acid (CENTRUM COMPLETE ORAL) Take 1 tablet by mouth once daily. - albuterol HFA (PROVENTIL HFA, VENTOLIN HFA) 90 mcg/actuation inhaler Inhale 2 Puffs as instructed every 6 hours as needed for wheezing/shortness of breath. - loratadine (CLARITIN) 10 mg tablet Take 1 tablet by mouth once daily. - clopidogrel (PLAVIX) 75 mg tablet Take 1 tablet by mouth once daily. - famotidine (PEPCID) 20 mg tablet Take 1 tablet by mouth every afternoon. - metoprolol succinate ER (TOPROL XL) 25 mg 24 hr tablet Take 12.5 mg by mouth daily at bedtime. - nitroglycerin sublingual (NITROQUICK) 0.4 mg SL tablet dissolve 1 tablet under the tongue every 5 minutes if needed for ... (REFER TO PRESCRIPTION NOTES). - aspirin, enteric coated (ASPIRIN, ENTERIC COATED) 81 mg EC tablet Take 81 mg by mouth once daily. - acetaminophen (TYLENOL EXTRA STRENGTH ORAL) Take 1 tablet by mouth as needed. - ketoconazole (NIZORAL) 2 % shampoo WASH FACE AND EARS - AND LET SIT FOR 5 MINUTES as directed ALTERN... (REFER TO PRESCRIPTION NOTES). - fluticasone 50 mcg/actuation nasal spray Use 2 Sprays in each nostril once daily as needed for Cold/Allergy Symptoms. Rinse mouth after use. - VIT C/DL-E AC/LUT/COPPER/ZNOX (PRESERVISION ORAL) Take 1 tablet by mouth two times a day. - Sodium Chloride (OCEAN NASAL) 0.65 % NASAL Mullen Use 1 [place] in the nose as needed. Problem List As Of Date 07/03/2024 Noted Resolved Generalized osteoarthrosis, unspecified site [M*11/29/2005 01/05/2013 Elevated prostate specific antigen (PSA) [R97.2*10/19/2007 01/09/2014 BPH with obstruction/lower urinary tract sympto*10/19/2007 Gout, Unspecified [M10.9] 09/03/2008 Chronic back pain [M54.50] 09/03/2008 01/08/2015 Actinic Keratosis (Premalignant AK) [L57.0] 09/11/2009 History of Malignant Neoplasm of Skin: BCC AND S*09/11/2009 01/14/2012 Surgical Scar and Fibrosis of Skin [L90.5] 09/11/2009 01/14/2012 Actinic Damage///Sun-Damaged Skin [L57.8] 09/11/2009 01/14/2012 Solar lentigo [L81.4] 09/11/2009 01/16/2012 Allergic Rhinitis [J30.9] 09/18/2009 Sleep apnea, obstructive [G47.33] 07/19/2007 12/29/2017 Periodic limb movement disorder (PLMD) [G47.61] 07/19/2007 12/29/2017 Hematuria [R31.9] 02/02/2012 01/07/2014 Urgency of urination [R39.15] 02/02/2012 12/29/2017 Frequency of urination [R35.0] 02/02/2012 12/29/2017 Dribbling [N39.43] 02/02/2012 03/02/2017 Pulmonary nodules/lesions, multiple [R91.8] 02/08/2012 01/05/2013 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] 01/02/2013 12/29/2017 Chronic prostatitis [N41.1] 01/02/2013 12/29/2017 Medication intolerance [Z78.9] 09/11/2013 01/17/2020 Hearing loss of both ears [H91.93] 01/07/2014 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, G47*01/07/2014 01/08/2015 Hyperlipidemia [E78.5] 01/07/2014 Vitamin D deficiency [E55.9] 01/15/2014 01/08/2015 DDD (degenerative disc disease), lumbar [M51.36*04/01/2014 Lumbar spondylosis [M47.816] 04/01/2014 01/08/2015 Lumbar radiculopathy [M54.16] 04/01/2014 12/29/2017 GERD (gastroesophageal reflux disease) [K21.9] 07/09/2014 Occult GI bleeding [R19.5] 09/11/2015 03/02/2017 Right shoulder pain [M25.511] 08/03/2017 12/29/2017 Disorder of scapula [M89.9] 08/03/2017 12/29/2017 Sleep apnea, obstructive [G47.33] 07/19/2007 Abnormal lung sounds [R09.89] (more content not included)...[facility]03-31-2025 History of Present illness Narrative* Van (Dairy Farm Manager)Lorri - 06/11/2024 9:36 AM EDT [facility] Refill Assessment Medication(s): Xtandi Patient's current medication list and adherence status to current therapy were reviewed by Specialty Pharmacy clinical pharmacist to identify any new drug interactions or non-compliance to therapy. Therapy continues to be appropriate for disease, patient response, and medical condition. Verification of therapeutic benefit and effectiveness with current therapy was completed. Adverse events, barriers in adherence, and side effects were assessed and addressed if applicable. Will proceed with refill with no changes in therapy - patient progressing towards achieving therapeutic goals based on medication- specific laboratory parameters, disease state markers and outcomes. Office/provider notes have been reviewed prior to dispensing the medication. Miller Apprentice Assessment Patient confirmed: Yes Med/dose confirmed: Yes Supplies needed: No supplies needed Missed doses: No Estimated days supply on hand: 14 Copay amount: 0 Payment confirmed: Yes Delivery method: FedEx Signature required: Waived on patient request Delivery address: [address], [place] Delivery date: 06/18/24 Questions or concerns for the pharmacist?: No Did you have any side effects believed to be related to this medication, that resulted in hospitalization?: No Current Outpatient Medications on File Prior to Visit Medication Sig amLODIPine (NORVASC) 2.5 mg tablet Take 1 tablet by mouth once daily. enzalutamide 40 mg Take 4 capsules (160 mg) by mouth once daily. tamsulosin (FLOMAX) 0.4 mg Take 1 capsule by mouth daily at bedtime. finasteride (PROSCAR) 5 mg tablet Take 1 tablet by mouth once daily. atorvastatin (LIPITOR) 40 mg tablet Take 1 tablet by mouth daily at bedtime. For cholesterol. multivitamin/iron/folic acid (CENTRUM COMPLETE ORAL) Take 1 tablet by mouth once daily. albuterol HFA (PROVENTIL HFA, VENTOLIN HFA) 90 mcg/actuation inhaler Inhale 2 Puffs as instructed every 6 hours as needed for wheezing/shortness of breath. loratadine (CLARITIN) 10 mg tablet Take 1 tablet by mouth once daily. clopidogrel (PLAVIX) 75 mg tablet Take 1 tablet by mouth once daily. famotidine (PEPCID) 20 mg tablet Take 1 tablet by mouth every afternoon. metoprolol succinate ER (TOPROL XL) 25 mg 24 hr tablet Take 12.5 mg by mouth daily at bedtime. nitroglycerin sublingual (NITROQUICK) 0.4 mg SL tablet dissolve 1 tablet under the tongue every 5 minutes if needed for ... (REFER TO PRESCRIPTION NOTES). aspirin, enteric coated (ASPIRIN, ENTERIC COATED) 81 mg EC tablet Take 81 mg by mouth once daily. acetaminophen (TYLENOL EXTRA [...] VIT C/DL-E AC/LUT/COPPER/ZNOX (PRESERVISION ORAL) Take 1 tablet by mouth two times a day. Sodium Chloride (OCEAN NASAL) 0.65 % NASAL Mullen Use 1 [place] in the nose as needed. No current facility-administered medications on file prior to visit. [facility] RX SPECIALTY CLINICAL ASSESSMENT - HEMATOLOGY ONCOLOGY V6: Assessment to use: Refill Date of influenza vaccination reminder: 05/17/2024 Date of most recent vaccination assessment: 05/17/2024 Treatment Plan Information: Dx: mCSPC Tx Hx: lupron Tx Plan: Xtandi +lupron Medication: Xtandi Dose: 160mg Sig: Take 4 capsules (160 mg) by mouth once daily. Admin/Storage: Same time each day, with or without food, hazardous A/E/warnings: fractures/falls, PRES, seizures, HTN, edema, hot flash, hyperglycemia, hypermagnesmia, hyponatremia, constipation, diarrhea, decreased appetite, nausea, fatigue, arthralgia, asthenia, back pain, musculoskeletal pain Lab/Monitoring: CBC with differential and liver function tests: baseline and periodic blood pressure : baseline and periodic Monitor for signs/symptoms of ischemic heart disease, posterior reversible encephalopathy syndrome,and seizure D/I with Xtandi: Category C with amlodipine and atorvastatin-CY Inducers (Strong) may decrease the serum concentration of AmLODIPine. Monitor for reduced amlodipine/atorvastatin efficacy Category C with clopidogrel- CYP2C8 Inhibitors (Moderate) may increase serum concentrations of the active metabolite(s) of Enzalutamide. Monitor for increased xtandi toxicity Est. Tx Plan Start Date: No information available Estimated Start Date Info: Per Dr. Guerra's discretion Est. Estimated Treatment Duration: Continue until disease progression or unacceptable toxicity. Lorri Araujo ([employer]) documented in this encounterWay[facility]03-31-2025 NoteHNO ID: [id number] Author: SAYDA GREER RPh Service: ? Author Type: ? Type: Progress Notes Filed: 06/15/2024 08:16 Note Text: [facility] Refill Assessment Medication(s): Xtandi Reviewed encounter notes since last specialty review. Per notes, patient requesting delay in start date to 05/28. As of 06/04 follow up, patient tolerating therapy. Redness at Lupron injection site noted. Labs reviewed. Latest Reference Range AND Units 05/08/24 08:45 05/30/24 14:13 PSA <2.60 ng/mL 18.40 (H) 19.34 (H) Patient started therapy 05/28. Will update baseline Compass Irina assessment with updated PSA as this is slightly higher than previous. Next clinic visit scheduled 08/02. ALLERGIES Allergen Reactions Zetia [Ezetimibe] Other: See Comments Joint pain Gabapentin Shortness of Breath, Other: See Comments dizziness Mobic [Meloxicam] GI Upset Sulfa (Sulfonamide * unkown Patient's current medication list and adherence status to current therapy were reviewed by Specialty Pharmacy clinical pharmacist to identify any new drug interactions or non-compliance to therapy. Therapy continues to be appropriate for disease, patient response, and medical condition. Verification of therapeutic benefit and effectiveness with current therapy was completed. Adverse events, barriers in adherence, and side effects were assessed and addressed if applicable. Will proceed with refill with no changes in therapy - patient progressing towards achieving therapeutic goals based on medication-specific laboratory parameters, disease state markers and outcomes. Office/provider notes have been reviewed prior to dispensing the medication. Sayda Greer RPh PharmD, BCPS Clinical Pharmacist, Oncology [facility] P: , F: Pool: P [facility] Pool #: [id number] Miller Apprentice Assessment Patient confirmed: Yes Med/dose confirmed: Yes Supplies needed: No supplies needed Missed doses: No Estimated days supply on hand: 14 Copay amount: 0 Payment confirmed: Yes Delivery method: FedEx Signature required: Waived on patient request Delivery address: [address] [place] [address] Delivery date: 06/18/24 Questions or concerns for the pharmacist?: No Did you have any side effects believed to be related to this medication, that resulted in hospitalization?: No Current Outpatient Medications on File Prior to Visit Medication Sig amLODIPine (NORVASC) 2.5 mg tablet Take 1 tablet by mouth once daily. enzalutamide 40 mg Take 4 capsules (160 mg) by mouth once daily. tamsulosin (FLOMAX) 0.4 mg Take 1 capsule by mouth daily at bedtime. finasteride (PROSCAR) 5 mg tablet Take 1 tablet by mouth once daily. atorvastatin (LIPITOR) 40 mg tablet Take 1 tablet by mouth daily at bedtime. For cholesterol. multivitamin/iron/folic acid (CENTRUM COMPLETE ORAL) Take 1 tablet by mouth once daily. albuterol HFA (PROVENTIL HFA, VENTOLIN HFA) 90 mcg/actuation inhaler Inhale 2 Puffs as instructed every 6 hours as needed for wheezing/shortness of breath. loratadine (CLARITIN) 10 mg tablet Take 1 tablet by mouth once daily. clopidogrel (PLAVIX) 75 mg tablet Take 1 tablet by mouth once daily. famotidine (PEPCID) 20 mg tablet Take 1 tablet by mouth every afternoon. metoprolol succinate ER (TOPROL XL) 25 mg 24 hr tablet Take 12.5 mg by mouth daily at bedtime. nitroglycerin sublingual (NITROQUICK) 0.4 mg SL tablet dissolve 1 tablet under the tongue every 5 minutes if needed for ... (REFER TO PRESCRIPTION NOTES). aspirin, enteric coated (ASPIRIN, ENTERIC COATED) 81 mg EC tablet Take 81 mg by mouth once daily. acetaminophen (TYLENOL EXTRA [...] VIT C/DL-E AC/LUT/COPPER/ZNOX (PRESERVISION ORAL) Take 1 tablet by mouth two times a day. Sodium Chloride (OCEAN NASAL) 0.65 % NASAL Mullen Use 1 [place] in the nose as needed. No current facility-administered medications on file prior to visit. [facility] RX SPECIALTY CLINICAL ASSESSMENT - HEMATOLOGY ONCOLOGY V6: Ivent complete: No Assessment to use: Refill Lab monitoring inclusive of CBC, Chem-7, and other labs as pertinent for therapy: Yes Chemo cycle timing assessment: N/A Assessment of injection issues: N/A Current medication list (including drug interaction assessment): Yes Experience of adverse reactions to the medication: Yes Date of influenza vaccination reminder: 05/17/2024 Date of most recent vaccination assessment: 05/17/2024 Treatment Plan Information: Dx: mCSPC Tx Hx: lupron Tx Plan: Xtandi +lupron Medication: Xtandi Dose: 160mg Sig: Take 4 capsules (160 mg) by mouth once daily. Admin/ (more content not included)...[facility]03-26-2025 Note HNO ID: [id number] Author: MARIANO OCAMPO MD Service: ? Author Type: Physician Type: Progress Notes Filed: 06/16/2024 11:30 Note Text: This note was created using [employer] Plume [employer]riter. Subjective Everton Pardo is a 88 year old male. Everton was here with Silke for follow up. He complained of bumps and bruises where he had injections, and apparently from trauma related to yard work. He was still on dual antiplatelet therapy, more than one year from his coronary stent. He complained of right leg edema for about 6 weeks, worse when upright and improving after laying down. We reviewed need for more activity. He complained of being off balance, and falling twice recently and 6 times this past year. His legs do not seem to keep up with where he wants to go. He has also fallen backwards for no particular reason. He had no history of cerebral vascular accident. His CAD, aortic stenosis, hypertension, and hyperlipidemia were stable. BPH symptoms were controlled. His obstructive sleep apnea was untreated. Review of Systems Constitutional: Negative for fatigue, fever and unexpected weight change. HENT: Negative for congestion. Eyes: Negative for visual disturbance. Respiratory: Negative for cough, shortness of breath and wheezing. Cardiovascular: Positive for leg swelling. Negative for chest pain and palpitations. Gastrointestinal: Negative for abdominal pain, constipation and diarrhea. Genitourinary: Negative for difficulty urinating and dysuria. Musculoskeletal: Positive for gait problem. Neurological: Negative for dizziness, tremors, syncope, facial asymmetry, light-headedness, numbness and headaches. Psychiatric/Behavioral: Negative. 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 Vaping Use Vaping status: Never Used Substance Use Topics Alcohol use: No Drug use: No Current Outpatient Medications Medication Sig enzalutamide 40 mg Take 4 capsules (160 mg) by mouth once daily. tamsulosin (FLOMAX) 0.4 mg Take 1 capsule by mouth daily at bedtime. finasteride (PROSCAR) 5 mg tablet Take 1 tablet by mouth once daily. atorvastatin (LIPITOR) 40 mg tablet Take 1 tablet by mouth daily at bedtime. For cholesterol. multivitamin/iron/folic acid (CENTRUM COMPLETE ORAL) Take 1 tablet by mouth once daily. albuterol HFA (PROVENTIL HFA, VENTOLIN HFA) 90 mcg/actuation inhaler Inhale 2 Puffs as instructed every 6 hours as needed for wheezing/shortness of breath. loratadine (CLARITIN) 10 mg tablet Take 1 tablet by mouth once daily. clopidogrel (PLAVIX) 75 mg tablet Take 1 tablet by mouth once daily. famotidine (PEPCID) 20 mg tablet Take 1 tablet by mouth every afternoon. metoprolol succinate ER (TOPROL XL) 25 mg 24 hr tablet Take 12.5 mg by mouth daily at bedtime. nitroglycerin sublingual (NITROQUICK) 0.4 mg SL tablet dissolve 1 tablet under the tongue every 5 minutes if needed for ... (REFER TO PRESCRIPTION NOTES). aspirin, enteric coated (ASPIRIN, ENTERIC COATED) 81 mg EC tablet Take 81 mg by mouth once daily. acetaminophen (TYLENOL EXTRA [...] VIT C/DL-E AC/LUT/COPPER/ZNOX (PRESERVISION ORAL) Take 1 tablet by mouth two times a day. Sodium Chloride (OCEAN NASAL) 0.65 % NASAL Mullen Use 1 [place] in the nose as needed. amLODIPine (NORVASC) 2.5 mg tablet Take 1 tablet by mouth once daily. No current facility-administered medications for this visit. Objective BP 112/58 (BP Site: Left Arm, BP Position: Sitting, BP Cuff Size: Large Adult) Pulse 60 Temp (!) 35.8 ?C (96.4 ?F) (Temporal) Resp 16 Ht 170.2 cm (5' 7) Wt 76.4 kg (168 lb 6.9 oz) BMI 26.38 kg/m? Physical Exam Constitutional: General: He is not in acute distress. Appearance: He is not ill-appearing. HENT: Head: Atraumatic. Nose: No congestion or rhinorrhea. Eyes: General: No scleral icterus. Extraocular Movements: Extraocular movements intact. Conjunctiva/sclera: Conjunctivae normal. Pupils: Pupils are equal, r (more content not included)...[facility]03-26-2025 History of Present illness Narrative* Mariano Ocampo MD - 06/06/2024 8:18 AM EDT This note was created using [employer]. Subjective Everton Pardo is a 88 year old male. Everton was here with Silke for follow up. He complained of bumps and bruises where he had injections, and apparently from trauma related to yard work. He was still on dual antiplatelet therapy, more than one year from his coronary stent. He complained of right leg edema for about 6 weeks, worse when upright and improving after laying down. We reviewed need for more activity. He complained of being off balance, and falling twice recently and 6 times this past year. His legsdo not seem to keep up with where he wants to go. He has also fallen backwards for no particular reason. He had no history of cerebral vascular accident. His CAD, aortic stenosis, hypertension, and hyperlipidemia were stable. BPH symptoms were controlled. His obstructive sleep apnea was untreated. Review of Systems Constitutional: Negative for fatigue, fever and unexpected weight change. HENT: Negative for congestion. Eyes: Negative for visual disturbance. Respiratory: Negative for cough, shortness of breath and wheezing. Cardiovascular: Positive for leg swelling. Negative for chest pain and palpitations. Gastrointestinal: Negative for abdominal pain, constipation and diarrhea. Genitourinary: Negative for difficulty urinating and dysuria. Musculoskeletal: Positive for gait problem. Neurological: Negative for dizziness, tremors, syncope, facial asymmetry, light- headedness, numbness and headaches. Psychiatric/Behavioral: Negative. 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 Vaping Use Vaping status: Never Used Substance Use Topics Alcohol use: No Drug use: No Current Outpatient Medications Medication Sig enzalutamide 40 mg Take 4 capsules (160 mg) by mouth once daily. tamsulosin (FLOMAX) 0.4 mg Take 1 capsule by mouth daily at bedtime. finasteride (PROSCAR) 5 mg tablet Take 1 tablet by mouth once daily. atorvastatin (LIPITOR) 40 mg tablet Take 1 tablet by mouth daily at bedtime. For cholesterol. multivitamin/iron/folic acid (CENTRUM COMPLETE ORAL) Take 1 tablet by mouth once daily. albuterol HFA (PROVENTIL HFA, VENTOLIN HFA) 90 mcg/actuation inhaler Inhale 2 Puffs as instructed every 6 hours as needed for wheezing/shortness of breath. loratadine (CLARITIN) 10 mg tablet Take 1 tablet by mouth once daily. clopidogrel (PLAVIX) 75 mg tablet Take 1 tablet by mouth once daily. famotidine (PEPCID) 20 mg tablet Take 1 tablet by mouth every afternoon. metoprolol succinate ER (TOPROL XL) 25 mg 24 hr tablet Take 12.5 mg by mouth daily at bedtime. nitroglycerin sublingual (NITROQUICK) 0.4 mg SL tablet dissolve 1 tablet under the tongue every 5 minutes if needed for ... (REFER TO PRESCRIPTION NOTES). aspirin, enteric coated (ASPIRIN, ENTERIC COATED) 81 mg EC tablet Take 81 mg by mouth once daily. acetaminophen (TYLENOL EXTRA [...] VIT C/DL-E AC/LUT/COPPER/ZNOX (PRESERVISION ORAL) Take 1 tablet by mouth two times a day. Sodium Chloride (OCEAN NASAL) 0.65 % NASAL Mullen Use 1 [place] in the nose as needed. amLODIPine (NORVASC) 2.5 mg tablet Take 1 tablet by mouth once daily. No current facility-administered medications for this visit. Objective BP 112/58 (BP Site: Left Arm, BP Position: Sitting, BP Cuff Size: Large Adult) Pulse 60 Temp (!) 35.8 C (96.4 F) (Temporal) Resp 16 Ht 170.2 cm (5' 7) Wt 76.4 kg (168 lb 6.9 oz) BMI 26.38 kg/m Physical Exam Constitutional: General: He is not in acute distress. Appearance: He is not ill-appearing. HENT: Head: Atraumatic. Nose: No congestion or rhinorrhea. Eyes: General: No scleral icterus. Extraocular Movements: Extraocular movements intact. Conjunctiva/sclera: Conjunctivae normal. Pupils: Pupils are equal, round, and reactive to light. Cardiovascular: Rate and Rhythm: Regular rhythm. Bradycardia present. Pulses: Normal pulses. Heart sounds: S1 normal and S2 normal. Murmur heard. Systolic murmur is present with a grade of 1/6. Pulmonary: Effort: No respiratory distress. Breath sounds: Examination of the right-lower field reveals rales. Examination of the left-lower field reveals rales. Rales present. No wheezing. Abdominal: Palpations: Abdomen is soft. There is no mass. Tenderness: There is abdominal tenderness. Comments: Golf ball sized ecchymosis RUQ with small nodular hematomas RUQ, superficial tenderness. Grape sized ecchymosis, small nodular hematoma RLQ, mild superficial tenderness. Musculoskeletal: Right lower leg: Tenderness present. 2+ Edema present. Left lower leg: No tenderness. No edema. Comments: Ecchymosis right bicep. Neurological: Mental Status: He is alert and oriented to person, place, and time. Cranial Nerves: Cranial nerves 2-12 are intact. No cranial nerve deficit, dysarthria or facial asymmetry. Sensory: Sensation is intact. Motor: No weakness, tremor, abnormal muscle tone or pronator drift. Coordination: Coordination is intact. Gait: Gait abnormal. Comments: Staggers when making turns. Psychiatric: Mood and Affect: Mood normal. Latest Ref Rng 06/01/2024 Cholesterol, Total <200 mg/dL 93 Triglyceride <150 mg/dL 78 HDL Cholesterol >39 mg/dL 32 (L) Non HDL Cholesterol <130 mg/dL 61 Fasting Time hrs 12 VLDL Cholesterol <30 mg/dL 16 TC:HDL Ratio <5.10 2.91 LDL Cholesterol <100 mg/dL 45 LDL:HDL Ratio <2.54 1.41 Hemoglobin A1C 4.3 - 5.6 % 5.2 Estimated Average Glucose mg/dL 103 Uric Acid 4.0 - 8.1 mg/dL 4.0 Legend: (L) Low Assessment and Plan 1. Medicare annual wellness visit, subsequent - ICD9: V70.0, ICD10: Z00.00 (primary diagnosis) - See wellness visit. 2. Encounter for immunization - ICD9: V03.89, ICD10: Z23 - PFIZER-BIONTECH COVID-19 VACCINE AGE 12+ YR (COMIRNATY) 3. Essential hypertension - ICD9: 401.9, ICD10: I10 - Controlled - Continue current medications - AMLODIPINE 2.5 MG TABLET 4. Screening for depression - ICD9: V79.0, ICD10: Z13.31 - DEPRESSION SCREENING 5. Encounter for screening examination for other mental health and behavioral disorders - ICD9: V79.8, ICD10: Z13.39 Medication, referral declined. - ANXIETY SCREENING 6. Hematomas - ICD9: 924.9, ICD10: T14.8XXA Apply warm compress. He was instructed to discuss need for DAPT with his photo journalist. 7. Ecchymosis - ICD9: 459.89, ICD10: R58 See #6. 8. Leg edema, right - ICD9: 782.3, ICD10: R60.0 Rule out DVT. - US LEG VEIN DVT UNL VAS LAB 9. Abnormal gait - ICD9: 781.2, ICD10: R26.9 History of falls. Evaluate for CVA. - CT BRAIN WO IVCON 10. Gout, unspecified cause, unspecified chronicity, unspecified site - ICD9: 274.9, ICD10: M10.9 Controlled. 11. Coronary artery disease involving [place] coronary artery of hop[place] heart without angina pectoris - ICD9: 414.01, ICD10: I25.10 - Stable. 12. Prostate cancer (HCC) - ICD9: 185, ICD10: C61 - Per oncology. Mariano Ocampo MD * Mariano Ocampo MD - 06/05/2024 10:43 AM EDT Images from the original note were not included. Everton Pardo is a 88 year old male here for a Medicare wellness visit. Medicare Health Risk Assessment General Health Fair Exercise: Minutes/Day 30 min Exercise: Days/Week 1 day Alcohol: Daily Use Never Alcohol: Drinks/Day Patient does not drink Alcohol: 6 or more drinks Never Feel off balance Yes (fell 6 times the past year) Concerns: Teeth/Dentures No Concerns: Sexual function No Troubled by feelings Stressed; Isolated; Lonely Frequency: Eating healthy diet Nearly every day ADLs requiring help Housework Safety precautions in home/vehicle Yes Smoke, vape, chews tobacco No Difficulty hearing Yes, I wear a hearing aid Difficulty seeing No Current Providers Specialists: I have reviewed specialist-related care of the patient in the medical record. Current care team: Patient Care Team: Mariano Ocampo MD as PCP - General Yamel Lomeli, PROTOTYPE ENGINEER MANAGER.CONTRACT CLERK as Emergency Veterinary Technician (Internal Medicine) Master Guerra MD (Hematology/Oncology) Cruzito Young, NEISHA as Specialty Manager Garage (Hematology/Oncology) Outside specialists seen: Jasper Gee MD (Cardiology) Jayjay Kim MD (Dermatology) Lester Bailey MD (Ophthalmology) Medical/Family history review Reviewed and updated problem list, medical/surgical/family/social history, medications, and allergies. Opioid use review Opioid Medications (last 90 days) No data to display Anxiety/Depression screening Recommendation: no further intervention at this time Cognitive screening Mini Cog Score: 3 Cognitive screening reviewed and No further action needed (score 3-5). Functional Observation Was the patient's Timed Up & Go test unsteady or >= 12 seconds? No Advance Care Planning Patient did not wish or was not able to name a surrogate decision maker or provide an advance care plan Measurements BP 112/58 (BP Site: Left Arm, BP Position: Sitting, BP Cuff Size: Large Adult) Pulse 60 Temp (!) 35.8 C (96.4 F) (Temporal) Resp 16 Ht 170.2 cm (5' 7) Wt 76.4 kg (168 lb 6.9 oz) BMI 26.38 kg/m Vision Screening: Follows with optometry/ophthalmology Right: 20/20 Left: 20/ 40 Both: 20/40 Assessment/Plan Medicare annual wellness visit, subsequent (Z00.00) - Counseled on healthy diet and regular exercise - Fall avoidance information provided - Personalized prevention plan provided - Covid vaccine updated. [facility] Instructions* Patient Instructions* Mariano Ocampo MD - 06/05/2024 11:20 AM EDT DISCUSS THE NEED FOR 2 BLOOD THINNERS (ASPIRIN AND PLAVIX) WITH CARDIOLOGY. CONSIDER REDUCING TO PLAVIX ONLY. Advance Directive Forms Advanced Directives Forms (Algerian) FORMS: [email or web address] f INFORMATIONAL BROCHURE: [email or web address]=en Advance Directives (non-Algerian) FORMS: [email or web address] [email or web address] Please bring completed forms to your next appointment or email them to . Patient Resources How to Get Started Talking with Loved Ones about your Wishes at the End of Life [email or web address]-content/[email or web address] [email or web address]-[email or web address] How to Navigate Conversations with your Care Team around your Preferences [email or web address] Screening schedule The following prevention plan is recommended: Depression Screening Never done Anxiety Screening Never done Advance Directive Discussion due on 03/14/2024 Covid-19 Vaccine() due on 05/30/2024 WHAT YOU CAN DO TO PREVENT FALLS Many falls can be prevented. By making some changes, you can lower your chances of falling. Four things YOU can do to prevent falls for you* and your caregiver 1. Begin a regular exercise program Exercise is one of the most important ways to lower your chances of falling. It makes you stronger and helps you feel better. Exercises that improve balance and coordination (like Darshan Chi) are the most helpful. Lack of exercise leads to weakness and increases your chances of falling. Ask your doctor or health care provider about the best type of exercise program for you. 2. Have your health care provider review your medicines Have your doctor or pharmacist review all the medicines you take, even [id number] medicines. As you get older, the way medicines work in your body can change. Some medicines, or combinations of medicines, can make you sleepy or dizzy andcan cause you to fall. 3. Have your vision checked Have your eyes checked by an eye doctor at least once a year. You may be wearing the wrong glasses or have a condition like glaucoma or cataracts that limits your vision. Poor vision can increase your chances of falling. 4. Make your home safer About half of all falls happen at home. To make your home safer: Remove things you can trip over (like papers, books, clothes, and shoes) from stairs and places where you walk. Remove small throw rugs or use double-sided tape to keep the rugs from slipping. Keep items you use often in cabinets you can reach easily without using a step stool. Have grab bars put in next to your toilet and in the tub or shower. Use non-slip mats in the bathtub and on shower floors. Improve the lighting in your home. As you get older, you need brighter lights to see well. Hang light-weight curtains or shades to reduce glare. Have handrails and lights put in on all staircases. Wear shoes both inside and outside the house. Avoid going barefoot or wearing slippers. For more information, contact: Centers for Disease Control and Prevention www.cdc.gov/injury * This information may not apply if you have certain medical conditions. [facility] NoteHNO ID: [id number] Author: MARIANO OCAMPO MD Service: ? Author Type: Physician Type: Progress Notes Filed: 06/06/2024 09:40 Note Text: Everton Pardo is a 88 year old male here for a Medicare wellness visit. Medicare Health Risk Assessment General Health Fair Exercise: Minutes/Day 30 min Exercise: Days/Week 1 day Alcohol: Daily Use Never Alcohol: Drinks/Day Patient does not drink Alcohol: 6 or more drinks Never Feel off balance Yes (fell 6 times the past year) Concerns: Teeth/Dentures No Concerns: Sexual function No Troubled by feelings Stressed; Isolated; Lonely Frequency: Eating healthy diet Nearly every day ADLs requiring help Housework Safety precautions in home/vehicle Yes Smoke, vape, chews tobacco No Difficulty hearing Yes, I wear a hearing aid Difficulty seeing No Current Providers Specialists: I have reviewed specialist-related care of the patient in the medical record. Current care team: Patient Care Team: Mariano Ocampo MD as PCP - General Yamel Lomeli, PROTOTYPE ENGINEER MANAGER.CONTRACT CLERK as Emergency Veterinary Technician (Internal Medicine) Master Guerra MD (Hematology/Oncology) Cruzito Young RN as Specialty Manager Garage (Hematology/Oncology) Outside specialists seen: Jasper Gee MD (Cardiology) Jayjay Kim MD (Dermatology) Lester Bailey MD (Ophthalmology) Medical/Family history review Reviewed and updated problem list, medical/surgical/family/social history, medications, and allergies. Opioid use review Opioid Medications (last 90 days) No data to display Anxiety/Depression screening Recommendation: no further intervention at this time Cognitive screening Mini Cog Score: 3 Cognitive screening reviewed and No further action needed (score 3-5). Functional Observation Was the patient's Timed Up AND Go test unsteady or >= 12 seconds? No Advance Care Planning Patient did not wish or was not able to name a surrogate decision maker or provide an advance care plan Measurements BP 112/58 (BP Site: Left Arm, BP Position: Sitting, BP Cuff Size: Large Adult) Pulse 60 Temp (!) 35.8 ?C (96.4 ?F) (Temporal) Resp 16 Ht 170.2 cm (5' 7) Wt 76.4 kg (168 lb 6.9 oz) BMI 26.38 kg/m? Vision Screening: Follows with optometry/ophthalmology Right: 20/20 Left: 20/ 40 Both: 20/40 Assessment/Plan Medicare annual wellness visit, subsequent (Z00.00) - Counseled on healthy diet and regular exercise - Fall avoidance information provided - Personalized prevention plan provided - Covid vaccine updated.[facility]03-24-[facility] Telephone encounter Note* Telephone Encounter - Cruzito Young RN - 06/04/2024 12:21 PM EDT ORAL ANTI-CANCER AGENTS FOLLOW-UP PHONE CALL Patient identified by name and date of . YES Patient is on day 8 of Xtandi (enzalutamide) for Prostate Cancer. Patient has been monitoring his BP and that has been stable. SYMPTOM ASSESSMENT Headache: No Visual Changes: No Dizziness: No Do you have any periods of confusion? No Mood changes: No Mouth or throat pain: No Appetite: no changes in appetite, appetite fair Taste changes: No Nausea: No Vomiting: No Heartburn: No. Weight gain/loss: Unable to assess Episodes of palpitations/chest discomfort/pressure/pain No Shortness of breath: No Cough: No Diarrhea: no Constipation: no Bladder/Urinary Changes: None Pain: No=0 (pain 0 on a scale of 0-10). Fever: No Chills: No Cold sensitivity: No Numbness/weakness: No Edema: No Skin changes: States redness at site of last Lupron injection, 3rd injection given 05/10/24. Denies warm or tenderness. States he was expecting a lump as he had that with previous injections. The redness just started this past week. Denies fever. He will monitor and call if any worsening of symptoms. Itching: No Yellowing of skin or eyes: Unable to assess Musculoskeletal/joint changes/issues No Bleeding issues: No Activity Level (0-100%): same as baseline Does the patient need interventions or same day appointment:No ADDITIONAL FOLLOW UP: The next outreach call is due on: not needed and was scheduled na The following lab tests are due: 07/26/24 Verified patient is aware of next appointment in the cancer center: Yes. Verified patient verbalized how to correctly refill the oral agent prescription. Yes Does the patient have any financial difficulties affording this medication? No Patient verbalizes understanding of when to seek Medical Attention? YES Patient verbalizes understanding of after-hours and weekend phone number? YES Patient verbalized importance of medication compliance in taking the oral agent as prescribed. Patient instructed to call if unable to comply. Cruzito Young RN [facility] Work Phone: [phone] Miscellaneous Notes* Telephone Encounter - Cruzito Young RN - 06/04/2024 12:21 PM EDT ORAL ANTI-CANCER AGENTS FOLLOW-UP PHONE CALL Patient identified by name and date of . YES Patient is on day 8 of Xtandi (enzalutamide) for Prostate Cancer. Patient has been monitoring his BP and that has been stable. SYMPTOM ASSESSMENT Headache: No Visual Changes: No Dizziness: No Do you have any periods of confusion? No Mood changes: No Mouth or throat pain: No Appetite: no changes in appetite, appetite fair Taste changes: No Nausea: No Vomiting: No Heartburn: No. Weight gain/loss: Unable to assess Episodes of palpitations/chest discomfort/pressure/pain No Shortness of breath: No Cough: No Diarrhea: no Constipation: no Bladder/Urinary Changes: None Pain: No=0 (pain 0 on a scale of 0-10). Fever: No Chills: No Cold sensitivity: No Numbness/weakness: No Edema: No Skin changes: States redness at site of last Lupron injection, 3rd injection given 05/10/24. Denies warm or tenderness. States he was expecting a lump as he had that with previous injections. The redness just started this past week. Denies fever. He will monitor and call if any worsening of symptoms. Itching: No Yellowing of skin or eyes: Unable to assess Musculoskeletal/joint changes/issues No Bleeding issues: No Activity Level (0-100%): same as baseline Does the patient need interventions or same day appointment:No ADDITIONAL FOLLOW UP: The next outreach call is due on: not needed and was scheduled na The following lab tests are due: 07/26/24 Verified patient is aware of next appointment in the cancer center: Yes. Verified patient verbalized how to correctly refill the oral agent prescription. Yes Does the patient have any financial difficulties affording this medication? No Patient verbalizes understanding of when to seek Medical Attention? YES Patient verbalizes understanding of after-hours and weekend phone number? YES Patient verbalized importance of medication compliance in taking the oral agent as prescribed. Patient instructed to call if unable to comply. Cruzito Young RN [facility]03-[facility]25 Telephone encounter Note * Telephone Encounter - Martha Torres OCCA - 05/31/2024 8:28 AM EDT TC to patients spouse, listed in chart to receive medical information. Spouse verbalized understanding of fasting orders placed below. REDDY Castillo [facility]03-20-2025 Miscellaneous Notes* Telephone Encounter - Martha Torres OCCA - 05/31/2024 8:28 AM EDT TC to patients spouse, listed in chart to receive medical information. Spouse verbalized understanding of fasting orders placed below. REDDY Castillo * Telephone Encounter - Mariano Ocampo MD - 05/30/2024 8:45 PM EDT Fasting labs ordered. * Telephone Encounter - Usha Dodson - 05/30/2024 2:04 PM EDT Pt asking if he needs to get labs done before well check next week, please review and advise. Usha Dodson May 30, 2024 2:04 PM documented [facility]03-[facility]-2025 Telephone encounter Note * Telephone Encounter - Mariano Ocampo MD - 05/30/2024 8:45 PM EDT Fasting labs ordered. [facility]03-[facility] Telephone encounter Note* Telephone Encounter - Usha Dodson - 05/30/2024 2:04 PM EDT Pt asking if he needs to get labs done before well check next week, please review and advise. Usha Dodson May 30, 2024 2:04 PM [facility]03-13-2025 Telephone encounter Note* Telephone Encounter - Cruzito Young RN - 05/24/2024 2:48 PM EDT ORAL ANTI-CANCER AGENTS EDUCATION patient called today for oral medication education of Xtandi for Prostate Cancer Anticipated/Scheduled start date: 05/28/24 READINESS TO LEARN Cognitive Ability: Alert and oriented Motivation to Learn: Interested Family Support: High - Very involved in pt care Instruction Provided to: Patient Patient learns best by: Multiple Methods Factors affecting learning: None Physical limitation affecting learning: None ODONNELL ASSESSMENT: 1.) Verified that patient knows that the oral agents are for cancer and are taken by mouth. Yes 2.) Medication review completed during visit. Yes 3.) Patient is able to swallow pills. Yes 4.) Patient is able to read the drug label/information. Yes 5.) Patient is able to open the medication bottles and packages. Yes 6.) Has patient taken other pills for cancer? YES, please explain: Casodex 7.) Is patient experiencing any symptoms that would affect their ability to keep down pills, for example nausea or vomiting? No 8.) Verified that patient understands prescription delivery, benefit investigation and refill process. Yes DRUG-SPECIFIC EDUCATION: 1.) Verified patient knows the drug name. Yes 2.) Verified patient understands the dose and schedule of oral anti cancer agent. Yes 3.) Verified patient knows what to do if a medication dose is missed. Yes 4.) Verified patient understands where to store the drug. Yes 5.) Verified patient understands potential side effects and how to manage them. Yes 6.)Verified patient understands handling precautions of oral anti cancer agent. Yes 7.) Verified patient was given written instructions and understands when and whom to call with questions. Yes 8.) Verified patient understands where and how to return drug. Yes 9.) Verified patient received drug specific adult education handout and neutropenic wallet card Yes EVALUATE: The patient demonstrated an understanding of all the above education using the teach-back method. Yes Instructed to call us with any questions, concerns, and/or unresolved symptoms. Will continue to follow up and provide reinforcement of teaching topics as needed. Cruzito Young RN [facility] Work Phone: [phone] Miscellaneous Notes* Telephone Encounter - Cruzito Young RN - 05/24/2024 2:48 PM EDT ORAL ANTI-CANCER AGENTS EDUCATION patient called today for oral medication education of Xtandi for Prostate Cancer Anticipated/Scheduled start date: 05/28/24 READINESS TO LEARN Cognitive Ability: Alert and oriented Motivation to Learn: Interested Family Support: High - Very involved in pt care Instruction Provided to: Patient Patient learns best by: Multiple Methods Factors affecting learning: None Physical limitation affecting learning: None ODONNELL ASSESSMENT: 1.) Verified that patient knows that the oral agents are for cancer and are taken by mouth. Yes 2.) Medication review completed during visit. Yes 3.) Patient is able to swallow pills. Yes 4.) Patient is able to read the drug label/information. Yes 5.) Patient is able to open the medication bottles and packages. Yes 6.) Has patient taken other pills for cancer? YES, please explain: Casodex 7.) Is patient experiencing any symptoms that would affect their ability to keep down pills, for example nausea or vomiting? No 8.) Verified that patient understands prescription delivery, benefit investigation and refill process. Yes DRUG-SPECIFIC EDUCATION: 1.) Verified patient knows the drug name. Yes 2.) Verified patient understands the dose and schedule of oral anti cancer agent. Yes 3.) Verified patient knows what to do if a medication dose is missed. Yes 4.) Verified patient understands where to store the drug. Yes 5.) Verified patient understands potential side effects and how to manage them. Yes 6.)Verified patient understands handling precautions of oral anti cancer agent. Yes 7.) Verified patient was given written instructions and understands when and whom to call with questions. Yes 8.) Verified patient understands where and how to return drug. Yes 9.) Verified patient received drug specific adult education handout and neutropenic wallet card Yes EVALUATE: The patient demonstrated an understanding of all the above education using the teach-back method. Yes Instructed to call us with any questions, concerns, and/or unresolved symptoms. Will continue to follow up and provide reinforcement of teaching topics as needed. Cruzito Young RN documented in this encounterWay[facility]03-07-2025 Telephone encounter Note * Telephone Encounter - Aretha Zazueta RN - 05/18/2024 12:45 PM EST stopped by the office requesting information on Xtandi. was given a folder with Xtandi information from [facility]. informed a nurse from the office will contact her next week to review the medication information. is asking if patient can delay the start date a week d/t the time change. Spoke to lissette Leal for patient to start on 05/28. Called number on file and spoke to patient. Patient informed of start date and stated understanding. Patient had further questions regarding the medication. Patient aware that his picked up a handout on Xtandi today in our office. Patient stated he will read the handout. Patient aware someone from our office will contact him next week to review the information. Patient stated understanding. Patient started/will start taking xtandi on 05/28/24. Aretha Zazueta RN [facility]03-07-2025 Miscellaneous Notes* Telephone Encounter - Aretha Zazueta RN - 05/18/2024 12:45 PM EST stopped by the office requesting information on Xtandi. was given a folder with Xtandi information from [facility]. informed a nurse from the office will contact her next week to review the medication information. is asking if patient can delay the start date a week d/t the time change. Spoke to lissette Leal for patient to start on 05/28. Called number on file and spoke to patient. Patient informed of start date and stated understanding. Patient had further questions regarding the medication. Patient aware that his picked up a handout on Xtandi today in our office. Patient stated he will read the handout. Patient aware someone from our office will contact him next week to review the information. Patient stated understanding. Patient started/will start taking xtandi on 05/28/24. Aretha Zazueta RN documented in this encounterWayne Hospital02-27-2025 History of Present illness Narrative* Van (Dairy Farm Manager)Lorri - 05/10/2024 10:30 AM EST [facility] received prescription(s) for Xtandi [address] Guerra'soffice. Benefits investigation was conducted, indicating that a prior authorization is required by patient's insurance plan with [employer]. Encounter will be updated once prior authorization has been submitted [facility]. Lorri Araujo WINERY WORKER documented in this encounterWayne Hospital02-27-2025 NoteHNO ID: [id number] Author: JAHAIRA RAMIREZ RPh Service: ? Author Type: Registered Nurse Type: Progress Notes Filed: 05/15/2024 10:44 Note Text: [facility] received prescription(s) for Xtandi from Dr. Guerra's office. Benefits investigation was conducted, indicating that a prior authorization is required. SANDY was approved with details listed below. Plan Name: [employer] Plan Agent/Odonnell: prior authorization submitted through [employer] online portal Phone/Fax: SANDY reference number: SANDY Approval Dates: 03/14/2024 - 05/14/2027 Prescriptions will now be processed through [facility] for determination of next steps. Saida Bee RN Addendum May 15, 2024 10:44 AM : The first copay is high ~$700 due to the $2000 maximum out of pocket limit or cap on prescription drug expenses. After this fill the patient has reached their cap, and it is expected his/her copays will be $0 thereafter. There is no funding available for patient's diagnosis at this time. Patient will be assessed for eligibility to [place] [facility]. Note will be updated once pt is contacted. The new M3P program will also be discussed as appropriate for patients eligible as an additional option to pursue. Jahaira Ramirez, PharmD, BCACP, BCOP Clinical Pharmacist, Oncology [facility] P: , F: Pool: P [facility] Pool #: [id number] NoteHNO ID: [id number] Author: ?, ?, ? Service: ? Author Type: ? Type: Progress Notes Filed: 05/10/2024 10:33 Note Text: [facility] received prescription(s) for Xtandi [address] Guerra's office. Benefits investigation was conducted, indicating that a prior authorization is required by patient's insurance plan with [facility] [facility]. Encounter will be updated once prior authorization has been submitted by [facility]. Lorri Araujo CP[facility]02-27-2025 NoteHNO ID: [id number] Author: JAHAIRA RAMIREZ RPh Service: ? Author Type: Pharmacist Type: Progress Notes Filed: 05/17/2024 14:45 Note Text: [facility] received prescription(s) for Xtandi from Dr. Guerra's office. Benefits investigation was conducted, indicating that a prior authorization is required. SANDY was approved with details listed below. Plan Name: [employer] Plan Agent/Odonnell: prior authorization submitted through [employer] portal Phone/Fax: SANDY reference number: SANDY Approval Dates: 03/14/2024 - 05/14/2027 Pt's copay is $710.48. Shipment has been arranged, and pt will receive medication(s) on 05/21. Pt has been instructed to follow-up with clinic to confirm start date. A full drug interaction report was conducted, and following interactions noted: Category C with amlodipine and atorvastatin-CY Inducers (Strong) may decrease the serum concentration of AmLODIPine. Monitor for reduced amlodipine/atorvastatin efficacy Category C with clopidogrel- CYP2C8 Inhibitors (Moderate) may increase serum concentrations of the active metabolite(s) of Enzalutamide. Monitor for increased xtandi toxicity .I reviewed with patient's appropriate dose and dosing frequency, administration directions (Take 4 capsules (160 mg) by mouth once daily.), potential side effects, ability to self-administer and proper storage and handling requirements. S/he expressed understanding of the information we provided today, and received our contact information for the pharmacy if s/he had any other questions. Office/provider notes have been reviewed prior to dispensing the medication. 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 Mccormack, immunotherapy. 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 Diverticulosis of colon 06/28/2001 Tortuous colon ELEVATED PROSTATE SPECIFIC ANTIGEN 10/19/2007 PSA 3.8 in 9-06, 4.7 in 4-08, 4.3 in -: Malgieri rec routine follow up Environmental allergies Essential hypertension 10/08/2019 Gastritis 08/13/1999 GENERAL OSTEOARTHROSIS 11/29/2005 GOUT NOS 09/03/2008 Uric acid 5.8 in 6-09, 7.9 in 8-09 (during acute attack) Hearing loss of both ears 01/07/2014 Hypertrophy of prostate with urinary obstruction and other lower urinary tract symptoms (LUTS) 10/19/2007 Lumbago 09/03/2008 MRI 10-: small central herniation at L4-5, mild DDD L4-5 and L5-S1 Rec Tylenol and PT in 08-20: need to review old MRI and consider spinal stenosis Reviewed the importance of weight loss as of 08-20 Nonrheumatic aortic valve stenosis 08/13/2022 Periodic limb movement disorder (PLMD) 07/19/2007 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 I'm not using it anymore. Snoring Current Outpatient Medications on File Prior to Visit Medication Sig enzalutamide 40 mg Take 4 capsules (160 mg) by mouth once daily. tamsulosin (FLOMAX) 0.4 mg Take 1 capsule by mouth daily at bedtime. finasteride (PROSCAR) 5 mg tablet Take 1 tablet by mouth once daily. atorvastatin (LIPITOR) 40 mg tablet Take 1 tablet by mouth daily at bedtime. For cholesterol. multivitamin/iron/folic acid (CENTRUM COMPLETE ORAL) Take 1 tablet by mouth once daily. albuterol HFA (PROVENTIL HFA, VENTOLIN HFA) 90 mcg/actuation inhaler Inhale 2 Puffs as instructed every 6 hours as needed for wheezing/shortness of breath. folic acid/multivit-min/lutein (CENTRUM SILVER ORAL) Take 1 tablet by mouth as needed. (Patient not taking: Reported on 02/16/2024) loratadine (CLARITIN) 10 mg tablet Take 1 tablet by mouth once daily. (Patient taking differently: Take 10 mg by mouth as needed.) clopidogrel (PLAVIX) 75 mg tablet Take 1 tablet by mouth once daily. famotidine (PEPCID) 20 mg tablet Take 1 tablet by mouth every afternoon. amLODIPine (NORVASC) 2.5 mg tablet Take 1 tablet by mouth once daily. (Patient taking differently: Take 5 mg by mouth once daily.) metoprolol succinate ER (TOPROL XL) 25 mg 24 hr tablet Take 12.5 mg by mouth daily at bedtime. (Patient taking differently: Take 12.5 mg by mouth daily at bedtime.) nitroglycerin sublingual (NITROQUICK) 0.4 mg SL tablet dissolve 1 tablet under the tongue every 5 minutes if needed for ... (REFER TO PRESCRIPTION NOTES). aspirin, enteric coated (ASPIRIN, ENTERIC COATED) 81 mg EC tablet Take 81 mg by mouth once daily. acetaminophen (TYLENOL EXTRA STRENGTH ORAL) Take 1 tablet by mouth as needed. ketoconazole (NIZORAL) 2 % shampoo WASH FACE AND (more content not included)... [facility]02-27-[facility]25 NoteHNO ID: [id number] Author: MASTER GUERRA MD Service: ? Author Type: Physician Type: Progress Notes Filed: 05/10/2024 09:54 Note Text: (Elements copied from my note dated October 07, 2023, have been reviewed and updated where appropriate, and all reflect current assessment and medical decision making from today's encounter, May 10, 2024) HISTORY OF PRESENT ILLNESS: Everton Pardo is a 87 year old male referred by Dr Ocampo re PSA 5000, bone lesions. Saw Maksim Whitaker written he took last dose of Rx 2 days ago. Had a bone biopsy 08-30-23. Showed metastatic prostate cancer. Here for follow up and first lupron injection. Feels ok, no pain, just tired. Discussed SE lupron, general treatment approach to prostate cancer, treatment goals. Here for follow up, doing well. 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 PSA down significantly, but seems to be plateaued RECOMMENDATION/PLAN: 1. Lupron and zometa q 3 months 2. Add enzalutamide 3. Back q 3 months with PSA. Written and verbal health teaching given to patient, patient verbalizes understanding and agrees with treatment plan. 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 Mccormack, immunotherapy. 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 Diverticulosis of colon 06/28/2001 Tortuous colon ELEVATED PROSTATE SPECIFIC ANTIGEN 10/19/2007 PSA 3.8 in -, 4.7 in -, 4.3 in 09-19: Malgieri rec routine follow up Environmental allergies Essential hypertension 10/08/2019 Gastritis 08/13/1999 GENERAL OSTEOARTHROSIS 11/29/2005 GOUT NOS 09/03/2008 Uric acid 5.8 in 6-, 7.9 in 8- (during acute attack) Hearing loss of both ears 01/07/2014 Hypertrophy of prostate with urinary obstruction and other lower urinary tract symptoms (LUTS) 10/19/2007 Lumbago 09/03/2008 MRI : small central herniation at L4-5, mild DDD L4-5 and L5-S1 Rec Tylenol and PT in 08-20: need to review old MRI and consider spinal stenosis Reviewed the importance of weight loss as of 08-20 Nonrheumatic aortic valve stenosis 08/13/2022 Periodic limb movement disorder (PLMD) 07/19/2007 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 I'm not using it anymore. Snoring PAST SURGICAL HISTORY Procedure Laterality Date APPENDECTOMY 1944 CC CORONARY STENT 09/20/2022 PCI D1; RUPESH pLAD, OM1, and rPDA COLONOSCOPY 08/21/2018 COLONOSCOPY FLX DX W/COLLJ SPEC WHEN PFRMD 06/28/2001 Colonoscopy ESOPHAGOGASTRODUODENOSCOPY TRANSORAL DIAGNOSTIC 08/02/2001 EGD ESOPHAGOGASTRODUODENOSCOPY TRANSORAL DIAGNOSTIC 12/15/2015 EGD LEFT HEART CATH,PERCUTANEOUS 09/13/2022 PAST SURGICAL HISTORY OF 2010 cysts, skin lesions, basal cell cancer PROSTATE BIOPSY 08/2012 FAMILY HISTORY Problem Relation Age of Onset Cancer Mother Pt states does not remember type Heart Father [place] age 60s GI Sister gastrectomy Cancer Sister stomach cancer other (fibromyalgia) Sister Prostate Cancer Brother No Known Problems Other Lung disease Social History Tobacco Use Smoking status: Never Smokeless tobacco: Never Tobacco comments: No smoking in childhood home. Vaping Use Vaping status: Never Used Substance Use Topics Alcohol use: No Drug use: No ALLERGIES: ALLERGIES Allergen Reactions Zetia [Ezetimibe] Other: See Comments Joint pain Gabapentin Shortness of Breath, Other: See Comments dizziness Mobic [Meloxicam] GI Upset Sulfa (Sulfonamide * unkown CURRENT OUTPATIENT MEDICATIONS: tamsulosin (FLOMAX) 0.4 mg Take 1 capsule by mouth daily at bedtime. finasteride (PROSCAR) 5 mg tablet Take 1 tablet by mouth once daily. atorvastatin (LIPITOR) 40 mg tablet Take 1 tablet by mouth daily at bedtime. For cholesterol. multivitamin/iron/folic acid (CENTRUM COMPLETE ORAL) Take 1 tablet by mouth once daily. albuterol HFA (PROVENTIL HFA, VENTOLIN HFA) 90 mcg/actuation inhaler Inhale 2 Puffs as instructed every 6 hours as needed for wheezing/shortness of breath. loratadine (CLARITIN) 10 mg tablet Take 1 tablet by mouth once daily. (Patient taking differently: Take 10 mg by mouth as needed.) clopidogrel (PLAVIX) 75 mg tablet Take 1 tablet by mouth once daily. famotidine (PEPCID) 20 mg tablet Take 1 tablet by mouth every afternoon. amLODIPine (NORVASC) 2.5 mg tablet Take 1 tablet by mouth once daily. (Patient taking differently: Take 5 mg by (more content not included)...[facility]02-27-[facility]25 History of Present illness Narrative* Master Guerra MD - 05/10/2024 9:41 AM EST (Elements copied from my note dated October 07, 2023, have been reviewed and updated where appropriate, and all reflect current assessment and medical decision making from today's encounter, May 10, 2024) HISTORY OF PRESENT ILLNESS: Everton Pardo is a 87 year old male referred by Dr Ocampo re PSA 5000, bone lesions. Saw Maksim Whitaker written he took last dose of Rx 2 days ago. Had a bone biopsy 08-30-23. Showed metastatic prostate cancer. Here for follow up and first lupron injection. Feels ok, no pain, just tired. Discussed SE lupron, general treatment approach to prostate cancer, treatment goals. Here for follow up, doing well. 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 PSA down significantly, but seems to be plateaued RECOMMENDATION/PLAN: 1. Lupron and zometa q 3 months 2. Add enzalutamide 3. Back q 3 months with PSA. Written and verbal health teaching given to patient, patient verbalizes understanding and agrees with treatment plan. 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 Mccormack, immunotherapy. 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 Diverticulosis of colon 06/28/2001 Tortuous colon ELEVATED PROSTATE SPECIFIC ANTIGEN 10/19/2007 PSA 3.8 in -, 4.7 in -, 4.3 in -: Bertha payne routine follow up Environmental allergies Essential hypertension 10/08/2019 Gastritis 08/13/1999 GENERAL OSTEOARTHROSIS 11/29/2005 GOUT NOS 09/03/2008 Uric acid 5.8 in 6-09, 7.9 in 8-09 (during acute attack) Hearing loss of both ears 01/07/2014 Hypertrophy of prostate with urinary obstruction and other lower urinary tract symptoms (LUTS) 10/19/2007 Lumbago 09/03/2008 MRI 10: small central herniation at L4-5, mild DDD L4-5 and L5-S1 Rec Tylenol and PT in 08-20: need to review old MRI and consider spinal stenosis Reviewed the importance of weight loss as of 08-20 Nonrheumatic aortic valve stenosis 08/13/2022 Periodic limb movement disorder (PLMD) 07/19/2007 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 I'm not using it anymore. Snoring PAST SURGICAL HISTORY Procedure Laterality Date APPENDECTOMY 194 CC CORONARY STENT 09/20/2022 PCI D1; RUPESH pLAD, OM1, and rPDA COLONOSCOPY 08/21/2018 COLONOSCOPY FLX DX W/COLLJ SPEC WHEN PFRMD 06/28/2001 Colonoscopy ESOPHAGOGASTRODUODENOSCOPY TRANSORAL DIAGNOSTIC 08/02/2001 EGD ESOPHAGOGASTRODUODENOSCOPY TRANSORAL DIAGNOSTIC 12/15/2015 EGD LEFT HEART CATH,PERCUTANEOUS 09/13/2022 PAST SURGICAL HISTORY OF 2010 cysts, skin lesions, basal cell cancer PROSTATE BIOPSY 08/2012 FAMILY HISTORY Problem Relation Age of Onset Cancer Mother Pt states does not remember type Heart Father [place] age 60s GI Sister gastrectomy Cancer Sister stomach cancer other (fibromyalgia) Sister Prostate Cancer Brother No Known Problems Other Lung disease Social History Tobacco Use Smoking status: Never Smokeless tobacco: Never Tobacco comments: No smoking in childhood home. Vaping Use Vaping status: Never Used Substance Use Topics Alcohol use: No Drug use: No ALLERGIES: ALLERGIES Allergen Reactions Zetia [Ezetimibe] Other: See Comments Joint pain Gabapentin Shortness of Breath, Other: See Comments dizziness Mobic [Meloxicam] GI Upset Sulfa (Sulfonamide * unkown CURRENT OUTPATIENT MEDICATIONS: tamsulosin (FLOMAX) 0.4 mg Take 1 capsule by mouth daily at bedtime. finasteride (PROSCAR) 5 mg tablet Take 1 tablet by mouth once daily. atorvastatin (LIPITOR) 40 mg tablet Take 1 tablet by mouth daily at bedtime. For cholesterol. multivitamin/iron/folic acid (CENTRUM COMPLETE ORAL) Take 1 tablet by mouth once daily. albuterol HFA (PROVENTIL HFA, VENTOLIN HFA) 90 mcg/actuation inhaler Inhale 2 Puffs as instructed every 6 hours as needed for wheezing/shortness of breath. loratadine (CLARITIN) 10 mg tablet Take 1 tablet by mouth once daily. (Patient taking differently: Take 10 mg by mouth as needed.) clopidogrel (PLAVIX) 75 mg tablet Take 1 tablet by mouth once daily. famotidine (PEPCID) 20 mg tablet Take 1 tablet by mouth every afternoon. amLODIPine (NORVASC) 2.5 mg tablet Take 1 tablet by mouth once daily. (Patient taking differently: Take 5 mg by mouth once daily.) metoprolol succinate ER (TOPROL XL) 25 mg 24 hr tablet Take 12.5 mg by mouth daily at bedtime. (Patient taking differently: Take 12.5 mg by mouth daily at bedtime.) nitroglycerin sublingual (NITROQUICK) 0.4 mg SL tablet dissolve 1 tablet under the tongue every 5 minutes if needed for ... (REFER TO PRESCRIPTION NOTES). aspirin, enteric coated (ASPIRIN, ENTERIC COATED) 81 mg EC tablet Take 81 mg by mouth once daily. acetaminophen (TYLENOL EXTRA [...] VIT C/DL-E AC/LUT/COPPER/ZNOX (PRESERVISION ORAL) Take 1 tablet by mouth two times a day. Sodium Chloride (OCEAN NASAL) 0.65 % NASAL [place] Use 1 [place] in the nose as needed. folic acid/multivit-min/lutein (CENTRUM SILVER ORAL) Take 1 tablet by mouth as needed. (Patient nottaking: Reported on 02/16/2024) REVIEW OF SYSTEMS: GENERAL: No fever, night sweats, weight loss or malaise. All other reviewed and negative other than HPI. PHYSICAL EXAMINATION: VITAL SIGNS: BP 112/65 Pulse 68 Temp (Src) 97.2 (Temporal) Wt 170 lb (77.1kg) SpO2 100% GENERAL APPEARANCE: Well appearing, in no acute distress, alert and oriented x3, well-hydrated, well nourished. I spent a total of 30 minutes on the date of the service which included preparing to see the patient, [id number] patient care, completing clinical documentation, obtaining and/or reviewing separately obtained history, counseling and educating the patient/family/caregiver, ordering medications, juliana ts, or procedures, independently interpreting results (not separately reported), communicating results to the patient/family/caregiver, and care coordination (not separately reported). Electronically Signed: Master Guerra MD May 10, 2024 documented in [facility] encounterWay[facility]02-20-2025 Telephone encounter Note * Telephone Encounter - Gemma Peterson LPN - 05/03/2024 12:44 PM EST The patient has been identified by name and date of : Yes Caregiver verified no other encounters exist for this prescription request: Yes Caregiver confirmed with patient/requestor that no other refills are due, in the near future, with this provider at this time: Yes The last office visit in the department: 12/01/2023 Does the patient have a future office visit with this provider/department: Yes 06/05/2024 Requested Prescriptions Pending Prescriptions Disp Refills tamsulosin (FLOMAX) 0.4 mg 90 capsule 1 Sig: Take 1 capsule by mouth daily at bedtime. Patient has 10 left. Gemma Peterson LPN May 03, 2024 12:44 PM [facility]02-20-2025 Miscellaneous Notes* Telephone Encounter - Gemma Peterson LPN - 05/03/2024 12:44 PM EST The patient has been identified by name and date of : Yes Caregiver verified no other encounters exist for this prescription request: Yes Caregiver confirmed with patient/requestor that no other refills are due, in the near future, with this provider at this time: Yes The last office visit in the department: 12/01/2023 Does the patient have a future office visit with this provider/department: Yes 06/05/2024 Requested Prescriptions Pending Prescriptions Disp Refills tamsulosin (FLOMAX) 0.4 mg 90 capsule 1 Sig: Take 1 capsule by mouth daily at bedtime. Patient has 10 left. Gemma Peterson LPN May 03, 2024 12:44 PM documented in [facility] encounterWay[facility]01-02-2025 NoteHNO ID: [id number] Author: KARINA DE LA TORRE RN Service: ? Author Type: Registered Nurse Type: Progress Notes Filed: 03/15/2024 16:48 Note Text: [facility] NURSE - CHART REVIEW Provider [facility] Action Chart review 07/22/23 Unable to review due to no ED narrative notes in [facility] Everywhere after update. Pt identified by name and . Reason for Review: Payor request Patient Attributed To: QAE Payer: [employer] Chart Review For: Utilization: ED Total Patient High CostTotal Patient High Cost {HIGH COST:055793) Quality measure review Payor request for assistance Action Taken: Data submitted to payor Karina De La Torre RN March 15, 2024 4:40 [facility] [place] History of Present illness Narrative* Karina De La Torre RN - 03/15/2024 4:40 PM EST CEN[facility]AL [facility] NURSE - CHART REVIEW Provider [facility] Action Chart review 07/22/23 Unable to review due to no ED narrative notes in [facility] Everywhere after update. Pt identified by name and . Reason for Review: Payor request Patient Attributed To: QAE Payer: [employer] Chart Review For: Utilization: ED Total Patient High CostTotal Patient High Cost {HIGH COST:219530) Quality measure review Payor request for assistance Action Taken: Data submitted to edie De La Torre RN March 15, 2024 4:40 PM documented in this encounterWayne Hospital01-02-2025 NotePatient Outreach ([facility]) EVERTON PARDO ([id number]) 1935 M Date Time Provider Department 03/15/24 KARINA DE LA TORRE During your visit today, we recorded the following information about you: Karina De La Torre RN 03/15/2024 4:48 PM Signed [facility] NURSE - CHART REVIEW Provider [facility] Action Chart review 07/22/23 Unable to review due to no ED narrative notes in [facility] Everywhere after update. Pt identified by name and . Reason for Review: Payor request Patient Attributed To: DERREK Payer: [employer] Chart Review For: Utilization: ED Total Patient High CostTotal Patient High Cost {HIGH COST:164302) Quality measure review Payor request for assistance Action Taken: Data submitted to payor Karina De La Torre RN March 15, 2024 4:40 PM Allergies As of Date: 03/15/2024 Noted Allergy Reaction ZETIA (EZETIMIBE) 04/07/2023 14 - Other: See Comments Comments: Joint pain GABAPENTIN 02/25/2015 12 - Shortness of Breath 14 - Other: See Comments Comments: dizziness MOBIC (MELOXICAM) 06/28/2006 8 - GI Upset SULFA (SULFONAMIDE ANTIBIOTICS) 11/29/2005 Comments: unkown Date Reviewed: 02/17/2024 Reviewed by: Jazmyn Ellison - Fully Assessed Prescriptions as of 03/15/2024 - finasteride (PROSCAR) 5 mg tablet Take 1 tablet by mouth once daily. - tamsulosin (FLOMAX) 0.4 mg Take 1 capsule by mouth daily at bedtime. - atorvastatin (LIPITOR) 40 mg tablet Take 1 tablet by mouth daily at bedtime. For cholesterol. - multivitamin/iron/folic acid (CENTRUM COMPLETE ORAL) Take 1 tablet by mouth once daily. - albuterol HFA (PROVENTIL HFA, VENTOLIN HFA) 90 mcg/actuation inhaler Inhale 2 Puffs as instructed every 6 hours as needed for wheezing/shortness of breath. - folic acid/multivit-min/lutein (CENTRUM SILVER ORAL) Take 1 tablet by mouth as needed. - loratadine (CLARITIN) 10 mg tablet Take 1 tablet by mouth once daily. - clopidogrel (PLAVIX) 75 mg tablet Take 1 tablet by mouth once daily. - famotidine (PEPCID) 20 mg tablet Take 1 tablet by mouth every afternoon. - amLODIPine (NORVASC) 2.5 mg tablet Take 1 tablet by mouth once daily. - metoprolol succinate ER (TOPROL XL) 25 mg 24 hr tablet Take 12.5 mg by mouth daily at bedtime. - nitroglycerin sublingual (NITROQUICK) 0.4 mg SL tablet dissolve 1 tablet under the tongue every 5 minutes if needed for ... (REFER TO PRESCRIPTION NOTES). - aspirin, enteric coated (ASPIRIN, ENTERIC COATED) 81 mg EC tablet Take 81 mg by mouth once daily. - acetaminophen (TYLENOL EXTRA STRENGTH ORAL) Take 1 tablet by mouth as needed. - ketoconazole (NIZORAL) 2 % shampoo WASH FACE AND EARS - AND LET SIT FOR 5 MINUTES as directed ALTERN... (REFER TO PRESCRIPTION NOTES). - fluticasone 50 mcg/actuation nasal spray Use 2 Sprays in each nostril once daily as needed for Cold/Allergy Symptoms. Rinse mouth after use. - VIT C/DL-E AC/LUT/COPPER/ZNOX (PRESERVISION ORAL) Take 1 tablet by mouth two times a day. - Sodium Chloride (OCEAN NASAL) 0.65 % NASAL Mullen Use 1 [place] in the nose as needed. Problem List As Of Date 03/15/2024 Noted Resolved Generalized osteoarthrosis, unspecified site [M*11/29/2005 01/05/2013 Elevated prostate specific antigen (PSA) [R97.2*10/19/2007 01/09/2014 BPH with obstruction/lower urinary tract sympto*10/19/2007 Gout, Unspecified [M10.9] 09/03/2008 Chronic back pain [M54.50] 09/03/2008 01/08/2015 Actinic Keratosis (Premalignant AK) [L57.0] 09/11/2009 History of Malignant Neoplasm of Skin: BCC AND S*09/11/2009 01/14/2012 Surgical Scar and Fibrosis of Skin [L90.5] 09/11/2009 01/14/2012 Actinic Damage///Sun-Damaged Skin [L57.8] 09/11/2009 01/14/2012 Solar lentigo [L81.4] 09/11/2009 01/16/2012 Allergic Rhinitis [J30.9] 09/18/2009 Sleep apnea, obstructive [G47.33] 07/19/2007 12/29/2017 Periodic limb movement disorder (PLMD) [G47.61] 07/19/2007 12/29/2017 Hematuria [R31.9] 02/02/2012 01/07/2014 Urgency of urination [R39.15] 02/02/2012 12/29/2017 Frequency of urination [R35.0] 02/02/2012 12/29/2017 Dribbling [N39.43] 02/02/2012 03/02/2017 Pulmonary nodules/lesions, multiple [R91.8] 02/08/2012 01/05/2013 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] 01/02/2013 12/29/2017 Chronic prostatitis [N41.1] 01/02/2013 12/29/2017 Medication intolerance [Z78.9] 09/11/2013 01/17/2020 Hearing loss of both ears [H91.93] 01/07/2014 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, G47*01/07/2014 01/08/2015 Hyperlipidemia [E78.5] 01/07/2014 Vitamin D deficiency [E55.9] 01/15/2014 01/08/2015 DDD (degenerative disc disease), lumbar [M51.36*04/01/2014 Lumbar spondylosis [M47.816] 04/01/2014 01/08/2015 Lumbar radiculopathy [M54.16] 04/01/2014 12/29/2017 GERD (gastroesophageal reflux disease) [K21.9] 07/09/2014 Occult GI bleeding [R19.5] 09/11/2015 03/02/2017 Right shoulder pain [M25.511] 08/03/2017 12/29/2017 D (more content not included)...[facility]12-17-2024 History of Present illness Narrative* Deepthi Delacruz RT(R) - 02/28/2024 7:30 AM EST Radiology Service Progress Note PATIENT NAME: Everton Pardo DATE OF SERVICE: February 28, 2024 TIME: 7:48 AM PATIENT IDENTITY VERIFICATION COMPLETED USING TWO (2) IDENTIFIERS: Name and Date of confirmedby patient verbally. FALL SCREENING: Has the patient had 2 falls in the last year or 1 fall with injury or currently using an Ambulatory Assistive Device (Walker, Cane, Wheelchair, Crutches, etc.)? No PATIENT GENDER DATA: Male PATIENT RELEVANT IMPLANT DATA REVIEWED: Yes PATIENT PRESENTS WITH AN IMPLANTABLE OR ATTACHED SALES PROFESSIONAL: No RADIOLOGY DEPARTMENT: MR; Exam(s) Completed: Upper MSK: Shoulder, right PERIPHERAL IV DATA: Not applicable SIGNED BY: RT Carol(Cody) February 28, 2024 7:48 AM documented in this encounterWayne Hospital12-17-2024 NoteHNO ID: [id number] Author: DEEPTHI DELACRUZ RT(R) Service: ? Author Type: Technologist Type: Progress Notes Filed: 02/28/2024 07:49 Note Text: Radiology Service Progress Note PATIENT NAME: Everton Pardo DATE OF SERVICE: February 28, 2024 TIME: 7:48 AM PATIENT IDENTITY VERIFICATION COMPLETED USING TWO (2) IDENTIFIERS: Name and Date of confirmed by patient verbally. FALL SCREENING: Has the patient had 2 falls in the last year or 1 fall with injury or currently using an Ambulatory Assistive Device (Walker, Cane, Wheelchair, Crutches, etc.)? No PATIENT GENDER DATA: Male PATIENT RELEVANT IMPLANT DATA REVIEWED: Yes PATIENT PRESENTS WITH AN IMPLANTABLE OR ATTACHED SALES PROFESSIONAL: No RADIOLOGY DEPARTMENT: MR; Exam(s) Completed: Upper MSK: Shoulder, right PERIPHERAL IV DATA: Not applicable SIGNED BY: RT Carol(Cody) February 28, 2024 7:48 [facility]12-06-2024 Telephone encounter Note* Telephone Encounter - Ashlyn Gonzales - 02/17/2024 3:19 PM EST Spoke wit patient's and scheduled. Ashlyn Gonzaels [facility]12-06-2024 Miscellaneous Notes* Telephone Encounter - Ashlyn Gonzales - 02/17/2024 3:19 PM EST Spoke wit patient's and scheduled. Ashlyn Gonzales * Telephone Encounter - Jazmyn Ellison - 02/17/2024 2:38 PM EST Called patient to discuss imaging. Pt is agreeable to MRI shoulder to eval pain. PSR: can you please schedule MRI shoulder? Orders signed from [employer] on 02/16/24 Thank you! Jazmyn documented in this encounterWayne Hospital12-06-2024 Telephone encounter Note * Telephone Encounter - Jazmyn Ellison - 02/17/2024 2:38 PM EST Called patient to discuss imaging. Pt is agreeable to MRI shoulder to eval pain. PSR: can you please schedule MRI shoulder? Orders signed from [employer] on 02/16/24 Thank you! Jazmyn [facility] Work Phone: [phone] [phone] History of Present illness Narrative* Jazmyn Ellison - 02/16/2024 10:00 AM EST Everton Pardo 1935 02/16/2024 HISTORY OF PRESENT ILLNESS: Everton Pardo is a 87 year old male referred by Dr Ocampo re PSA 5000, bone lesions. Saw Maksim Whitaker written he took last dose of Rx 2 days ago. Had a bone biopsy 08-30-23. Showed metastatic prostate cancer. Here for follow up and first lupron injection. Feels ok, no pain, just tired. Discussed SE hyunron, general treatment approach to prostate cancer, treatment goals. Here for follow up, doing well. PSA down We have clearance for zometa Interval Hx: Mr. Pardo presents today with his spouse for follow up, Lupron and zometa. He reports feeling well overall. Denies fevers, chills or NS. Occasional hot flashes are tolerable. Denies new issues. Shoulder pain is bothersome. Has been ongoing but seems to be getting worse. Exacerbated by any activities. No SOB, CP, or palpitations. No CAR, dizziness, or changes in vision. Denies N/V/C/D. Occasional constipation managed with prune juice. No changes in bowel or bladder habits. No rash or skin changes. Denies bleeding or bruising. No edema. 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 Mccormack, immunotherapy. 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 Diverticulosis of colon 06/28/2001 Tortuous colon ELEVATED PROSTATE SPECIFIC ANTIGEN 10/19/2007 PSA 3.8 in -, 4.7 in -08, 4.3 in 09-19: Malgieri rec routine follow up Environmental allergies Essential hypertension 10/08/2019 Gastritis 08/13/1999 GENERAL OSTEOARTHROSIS 11/29/2005 GOUT NOS 09/03/2008 Uric acid 5.8 in 6-, 7.9 in 8-09 (during acute attack) Hearing loss of both ears 01/07/2014 Hypertrophy of prostate with urinary obstruction and other lower urinary tract symptoms (LUTS) 10/19/2007 Lumbago 09/03/2008 MRI : small central herniation at L4-5, mild DDD L4-5 and L5-S1 Rec Tylenol and PT in 08-20: need to review old MRI and consider spinal stenosis Reviewed the importance of weight loss as of 08-20 Nonrheumatic aortic valve stenosis 08/13/2022 Periodic limb movement disorder (PLMD) 07/19/2007 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 I'm not using it anymore. Snoring PAST SURGICAL HISTORY Procedure Laterality Date APPENDECTOMY 194 CC CORONARY STENT 09/20/2022 PCI D1; RUPESH pLAD, OM1, and rPDA COLONOSCOPY 08/21/2018 COLONOSCOPY FLX DX W/COLLJ SPEC WHEN PFRMD 06/28/2001 Colonoscopy ESOPHAGOGASTRODUODENOSCOPY TRANSORAL DIAGNOSTIC 08/02/2001 EGD ESOPHAGOGASTRODUODENOSCOPY TRANSORAL DIAGNOSTIC 12/15/2015 EGD LEFT HEART CATH,PERCUTANEOUS 09/13/2022 PAST SURGICAL HISTORY OF 2010 cysts, skin lesions, basal cell cancer PROSTATE BIOPSY 08/2012 FAMILY HISTORY Problem Relation Age of Onset Cancer Mother Pt states does not remember type Heart Father [place] age 60s GI Sister gastrectomy Cancer Sister stomach cancer other (fibromyalgia) Sister Prostate Cancer Brother No Known Problems Other Lung disease Social History Tobacco Use Smoking status: Never Smokeless tobacco: Never Tobacco comments: No smoking in childhood home. Vaping Use Vaping status: Never Used Substance Use Topics Alcohol use: No Drug use: No ALLERGIES: ALLERGIES Allergen Reactions Zetia [Ezetimibe] Other: See Comments Joint pain Gabapentin Shortness of Breath, Other: See Comments dizziness Mobic [Meloxicam] GI Upset Sulfa (Sulfonamide * unkown CURRENT OUTPATIENT MEDICATIONS: finasteride (PROSCAR) 5 mg tablet Take 1 tablet by mouth once daily. tamsulosin (FLOMAX) 0.4 mg Take 1 capsule by mouth daily at bedtime. atorvastatin (LIPITOR) 40 mg tablet Take 1 tablet by mouth daily at bedtime. For cholesterol. multivitamin/iron/folic acid (CENTRUM COMPLETE ORAL) Take 1 tablet by mouth once daily. albuterol HFA (PROVENTIL HFA, VENTOLIN HFA) 90 mcg/actuation inhaler Inhale 2 Puffs as instructed every 6 hours as needed for wheezing/shortness of breath. loratadine (CLARITIN) 10 mg tablet Take 1 tablet by mouth once daily. (Patient taking differently: Take 10 mg by mouth as needed.) clopidogrel (PLAVIX) 75 mg tablet Take 1 tablet by mouth once daily. famotidine (PEPCID) 20 mg tablet Take 1 tablet by mouth every afternoon. amLODIPine (NORVASC) 2.5 mg tablet Take 1 tablet by mouth once daily. (Patient taking differently: Take 5 mg by mouth once daily.) metoprolol succinate ER (TOPROL XL) 25 mg 24 hr tablet Take 12.5 mg by mouth daily at bedtime. nitroglycerin sublingual (NITROQUICK) 0.4 mg SL tablet dissolve 1 tablet under the tongue every 5 minutes if needed for ... (REFER TO PRESCRIPTION NOTES). aspirin, enteric coated (ASPIRIN, ENTERIC COATED) 81 mg EC tablet Take 81 mg by mouth once daily. acetaminophen (TYLENOL EXTRA [...] VIT C/DL-E AC/LUT/COPPER/ZNOX (PRESERVISION ORAL) Take 1 tablet by mouth two times a day. Sodium Chloride (OCEAN NASAL) 0.65 % NASAL Mullen Use 1 [place] in the nose as needed. folic acid/multivit-min/lutein (CENTRUM SILVER ORAL) Take 1 tablet by mouth as needed. (Patient nottaking: Reported on 02/16/2024) REVIEW OF SYSTEMS: GENERAL: No fever, night sweats, weight loss or malaise. All other reviewed and negative other than HPI. All systems reviewed on 02/16/2024 with pertinent positives and negatives as outlined in the interval history. PHYSICAL EXAMINATION: VITAL SIGNS: BP 96/60 Pulse 50 Temp (Src) 96.9 (Temporal) Ht 5' 6.535 (1.69m) Wt 164 lb (74.4kg) SpO2 100% BMI 26.05 kg/(m^2). GENERAL APPEARANCE: Well appearing, in no acute distress, alert and oriented x3, well-hydrated, well nourished. HEENT: Normocephalic, no sclera icterus, external ears normal Neck: Supple, no JVD. Chest: Clear bilaterally, no wheezes, not labored. Heart: Normal S1 and S2, no abnormal sounds Abdomen: Soft, nontender, nondistended Extremities: No edema Neurological: Grossly intact Skin: Warm and dry with no rashes or ulcerations. Hematologic: no bruising or petechiae. Psychiatric: Alert and oriented x3. Emotional well-being assessment was performed. Pt denies depression, distress, and or problems with coping or adjustment. I have performed the physical exam today (02/16/2024) and have edited the note to correlate with current findings. Labs: Lab Results Component Value Date PSA 20.13 (H) 02/14/2024 PSA 44.24 (H) 11/22/2023 PSA 140.10 (H) 10/05/2023 PSA >5,000.00 (H) 07/29/2023 PSA >5,000.00 (H) 07/27/2023 PSA 2.30 12/29/2017 PSA 2.17 01/02/2014 PSA 4.08 (H) 09/11/2013 PSA 5.48 (H) 12/18/2012 PSA 4.04 (H) 06/16/2012 CLINICAL IMPRESSION/ PLAN Prostate cancer metastatic to bone. 1. Lupron and zometa q 3 months - discussed with Dr. Guerra continue with lupron alone, continue to follow PSA consider zytiga 2. Dental clearance form received for zometa (see encounter 11/10/23) - reviewed administration schedule and side effects with patient and spouse today. Shoulder pain, acute on chronic - dose have widespread bone mets, however PSA improving - ? Rotator cuff, vs bone mets - discussed with Dr. Guerra - will obtain MRI should - possible ref to ortho pending results RTC as scheduled with next dennis, zometa Jazmyn Ellison APRN.CONTRACT CLERK I spent a total of 30 minutes on the date of the service which included preparing to see the patient, [id number] patient care, completing clinical documentation, and obtaining and/or reviewing separately obtained history. Portions of this note including HPI, ROS, impression/plan may have been copied forward as to provide important historical information essential in contributing to medical decision making. Documentation has been reviewed and edited as necessary to support clinical decision making for today's visit and to reflect my own independent evaluation of this patient. documented in this encounterWayne Hospital12-05-2024 NoteHNO ID: [id number] Author: JAZMYN ELLISON, ? Service: ? Author Type: Nurse Practitioner Type: Progress Notes Filed: 02/17/2024 12:05 Note Text: Everton Pardo 1935 02/16/2024 HISTORY OF PRESENT ILLNESS: Everton Pardo is a 87 year old male referred by Dr Ocampo re PSA 5000, bone lesions. Saw Dr Yue Casodex written he took last dose of Rx 2 days ago. Had a bone biopsy 08-30-23. Showed metastatic prostate cancer. Here for follow up and first lupron injection. Feels ok, no pain, just tired. Discussed SE dennis, general treatment approach to prostate cancer, treatment goals. Here for follow up, doing well. PSA down We have clearance for zometa Interval Hx: Mr. Pardo presents today with his spouse for follow up, Lupron and zometa. He reports feeling well overall. Denies fevers, chills or NS. Occasional hot flashes are tolerable. Denies new issues. Shoulder pain is bothersome. Has been ongoing but seems to be getting worse. Exacerbated by any activities. No SOB, CP, or palpitations. No CAR, dizziness, or changes in vision. Denies N/V/C/D. Occasional constipation managed with prune juice. No changes in bowel or bladder habits. No rash or skin changes. Denies bleeding or bruising. No edema. 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 Mccormack, immunotherapy. 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 Diverticulosis of colon 06/28/2001 Tortuous colon ELEVATED PROSTATE SPECIFIC ANTIGEN 10/19/2007 PSA 3.8 in -, 4.7 in -, 4.3 in -: Bertha payne routine follow up Environmental allergies Essential hypertension 10/08/2019 Gastritis 08/13/1999 GENERAL OSTEOARTHROSIS 11/29/2005 GOUT NOS 09/03/2008 Uric acid 5.8 in 6-, 7.9 in 8- (during acute attack) Hearing loss of both ears 01/07/2014 Hypertrophy of prostate with urinary obstruction and other lower urinary tract symptoms (LUTS) 10/19/2007 Lumbago 09/03/2008 MRI 10: small central herniation at L4-5, mild DDD L4-5 and L5-S1 Rec Tylenol and PT in 08-20: need to review old MRI and consider spinal stenosis Reviewed the importance of weight loss as of 08-20 Nonrheumatic aortic valve stenosis 08/13/2022 Periodic limb movement disorder (PLMD) 07/19/2007 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 I'm not using it anymore. Snoring PAST SURGICAL HISTORY Procedure Laterality Date APPENDECTOMY 194 CC CORONARY STENT 09/20/2022 PCI D1; RUPESH pLAD, OM1, and rPDA COLONOSCOPY 08/21/2018 COLONOSCOPY FLX DX W/COLLJ SPEC WHEN PFRMD 06/28/2001 Colonoscopy ESOPHAGOGASTRODUODENOSCOPY TRANSORAL DIAGNOSTIC 08/02/2001 EGD ESOPHAGOGASTRODUODENOSCOPY TRANSORAL DIAGNOSTIC 12/15/2015 EGD LEFT HEART CATH,PERCUTANEOUS 09/13/2022 PAST SURGICAL HISTORY OF 2010 cysts, skin lesions, basal cell cancer PROSTATE BIOPSY 08/2012 FAMILY HISTORY Problem Relation Age of Onset Cancer Mother Pt states does not remember type Heart Father [place] age 60s GI Sister gastrectomy Cancer Sister stomach cancer other (fibromyalgia) Sister Prostate Cancer Brother No Known Problems Other Lung disease Social History Tobacco Use Smoking status: Never Smokeless tobacco: Never Tobacco comments: No smoking in childhood home. Vaping Use Vaping status: Never Used Substance Use Topics Alcohol use: No Drug use: No ALLERGIES: ALLERGIES Allergen Reactions Zetia [Ezetimibe] Other: See Comments Joint pain Gabapentin Shortness of Breath, Other: See Comments dizziness Mobic [Meloxicam] GI Upset Sulfa (Sulfonamide * unkown CURRENT OUTPATIENT MEDICATIONS: finasteride (PROSCAR) 5 mg tablet Take 1 tablet by mouth once daily. tamsulosin (FLOMAX) 0.4 mg Take 1 capsule by mouth daily at bedtime. atorvastatin (LIPITOR) 40 mg tablet Take 1 tablet by mouth daily at bedtime. For cholesterol. multivitamin/iron/folic acid (CENTRUM COMPLETE ORAL) Take 1 tablet by mouth once daily. albuterol HFA (PROVENTIL HFA, VENTOLIN HFA) 90 mcg/actuation inhaler Inhale 2 Puffs as instructed every 6 hours as needed for wheezing/shortness of breath. loratadine (CLARITIN) 10 mg tablet Take 1 tablet by mouth once daily. (Patient taking differently: Take 10 mg by mouth as needed.) clopidogrel (PLAVIX) 75 mg tablet Take 1 tablet by mouth once daily. famotidine (PEPCID) 20 mg tablet Take 1 tablet by mouth every afternoon. amLODIPine (NORVASC) 2.5 mg tablet Take 1 tablet by mouth once daily. (Patient taking differently: Take 5 mg by mouth once daily.) metoprolol (more content not included)...[facility]11-08-2024 Telephone encounter Note* Telephone Encounter - [place] Shannan Francis - 01/20/2024 8:55 AM EST Prescription Refill Information The patient has been identified by name and date of : Yes Caregiver verified no other encounters exist for this prescription request: Yes Caregiver confirmed with patient/requestor that no other refills are due, in the near future, with this provider at this time: Yes The last office visit in the department: 12/01/23 Does the patient have a future office visit with this provider/department: Yes Requested Prescriptions Pending Prescriptions Disp Refills finasteride (PROSCAR) 5 mg tablet 90 tablet 3 Sig: Take 1 tablet by mouth once daily. Shannan Dozier [facility] January 20, 2024 8:55 AM [facility]11-08-2024 Miscellaneous Notes* Telephone Encounter - [place] Shannan Francis - 01/20/2024 8:55 AM EST Prescription Refill Information The patient has been identified by name and date of : Yes Caregiver verified no other encounters exist for this prescription request: Yes Caregiver confirmed with patient/requestor that no other refills are due, in the near future, with this provider at this time: Yes The last office visit in the department: 12/01/23 Does the patient have a future office visit with this provider/department: Yes Requested Prescriptions Pending Prescriptions Disp Refills finasteride (PROSCAR) 5 mg tablet 90 tablet 3 Sig: Take 1 tablet by mouth once daily. Shannan Francis January 20, 2024 8:55 AM documented [facility] Telephone encounter Note * Telephone Encounter - Xiang Diaz MA - 12/23/2023 3:04 PM EDT Prescription Refill Information The patient has been identified by name and date of : Yes Caregiver verified no other encounters exist for this prescription request: Yes Caregiver confirmed with patient/requestor that no other refills are due, in the near future, with this provider at this time: Yes The last office visit in the department: 12/01/2023 Does the patient have a future office visit with this provider/department: Yes Requested Prescriptions Pending Prescriptions Disp Refills tamsulosin (FLOMAX) 0.4 mg [Pharmacy Med Name: TAMSULOSIN HCL 0.4 MG CAPSULE] 90 capsule 1 Sig: TAKE 1 CAPSULE BY MOUTH EVERYDAY AT BEDTIME Xiang Diaz MA December 23, 2023 3:04 PM [facility]10-11-[facility] Miscellaneous Notes* Telephone Encounter - Xiang Diaz MA - 12/23/2023 3:04 PM EDT Prescription Refill Information The patient has been identified by name and date of : Yes Caregiver verified no other encounters exist for this prescription request: Yes Caregiver confirmed with patient/requestor that no other refills are due, in the near future, with this provider at this time: Yes The last office visit in the department: 12/01/2023 Does the patient have a future office visit with this provider/department: Yes Requested Prescriptions Pending Prescriptions Disp Refills tamsulosin (FLOMAX) 0.4 mg [Pharmacy Med Name: TAMSULOSIN HCL 0.4 MG CAPSULE] 90 capsule 1 Sig: TAKE 1 CAPSULE BY MOUTH EVERYDAY AT BEDTIME Xiang Diaz MA December 23, 2023 3:04 PM documented in this encounterWayne [facility]09-19-2024 NoteHNO ID: [id number] Author: MARIANO OCAMPO MD Service: ? Author Type: Physician Type: Progress Notes Filed: 12/01/2023 11:16 Note Text: This note was created using [employer]. Subjective Everton Pardo is a 88 year old male was doing better. Cough and wheezing resolved. Weight was increasing and appetite was better. His glucose was elevated non fasting but A1C was normal. His main concern was ongoing LUTS. Review of Systems Constitutional: Negative for appetite change, fever and unexpected weight change. Respiratory: Negative for cough, shortness of breath and wheezing. Cardiovascular: Negative for chest pain, palpitations and leg swelling. Genitourinary: Positive for decreased urine volume, frequency and urgency. Negative for difficulty urinating and dysuria. ACTIVE PROBLEM LIST Bph With Obstruction/Lower Urinary Tract Symptoms Gout, Unspecified Actinic Keratosis (Premalignant AK) Allergic Rhinitis Hearing Loss of Both Ears Hyperlipidemia Ddd (Degenerative Disc Disease), Lumbar Gerd (Gastroesophageal Reflux Disease) Sleep Apnea, Obstructive Abnormal Lung Sounds Essential Hypertension Impaired Fasting Blood Sugar Nonrheumatic Aortic Valve Stenosis Atherosclerosis of Coronary Artery Nodule of Lower Lobe of Right Lung Cervical Pain Calculus of Gallbladder Without Cholecystitis Without Obstruction Prostate Cancer (Hcc) Social History Tobacco Use Smoking status: Never Smokeless tobacco: Never Tobacco comments: No smoking in childhood home. Vaping Use Vaping status: Never Used Substance Use Topics Alcohol use: No Drug use: No Current Outpatient Medications Medication Sig multivitamin/iron/folic acid (CENTRUM COMPLETE ORAL) Take 1 tablet by mouth once daily. albuterol HFA (PROVENTIL HFA, VENTOLIN HFA) 90 mcg/actuation inhaler Inhale 2 Puffs as instructed every 6 hours as needed for wheezing/shortness of breath. folic acid/multivit-min/lutein (CENTRUM SILVER ORAL) Take 1 tablet by mouth as needed. loratadine (CLARITIN) 10 mg tablet Take 1 tablet by mouth once daily. (Patient taking differently: Take 10 mg by mouth as needed.) clopidogrel (PLAVIX) 75 mg tablet Take 1 tablet by mouth once daily. famotidine (PEPCID) 20 mg tablet Take 1 tablet by mouth every afternoon. atorvastatin (LIPITOR) 80 mg tablet Take 40 mg by mouth daily at bedtime. For cholesterol. amLODIPine (NORVASC) 2.5 mg tablet Take 1 tablet by mouth once daily. finasteride (PROSCAR) 5 mg tablet Take 1 tablet by mouth once daily. metoprolol succinate ER (TOPROL XL) 25 mg 24 hr tablet Take 12.5 mg by mouth daily at bedtime. nitroglycerin sublingual (NITROQUICK) 0.4 mg SL tablet dissolve 1 tablet under the tongue every 5 minutes if needed for ... (REFER TO PRESCRIPTION NOTES). aspirin, enteric coated (ASPIRIN, ENTERIC COATED) 81 mg EC tablet Take 81 mg by mouth once daily. acetaminophen (TYLENOL EXTRA [...] VIT C/DL-E AC/LUT/COPPER/ZNOX (PRESERVISION ORAL) Take 1 tablet by mouth two times a day. Sodium Chloride (OCEAN NASAL) 0.65 % NASAL Mullen Use 1 [place] in the nose as needed. No current facility-administered medications for this visit. Objective BP 116/62 (BP Site: Left Arm, BP Position: Sitting, BP Cuff Size: Large Adult) Pulse (!) 52 Temp 36.4 ?C (97.5 ?F) (Temporal) Resp 16 Wt 70.4 kg (155 lb 3.3 oz) BMI 24.22 kg/m? Physical Exam Constitutional: General: He is not in acute distress. Cardiovascular: Rate and Rhythm: Bradycardia present. Heart sounds: No murmur heard. No gallop. Pulmonary: Effort: No respiratory distress. Breath sounds: Examination of the right-lower field reveals rales. Examination of the left-lower field reveals rales. Rales present. No wheezing. Musculoskeletal: Right lower leg: No edema. Left lower leg: No edema. Neurological: Mental Status: He is alert. Gait: Gait normal. Latest Ref Rng 11/22/2023 Glucose 74 - 99 mg/dL 162 (H) BUN 9 - 24 mg/dL 19 Creatinine 0.73 - 1.22 mg/dL 1.04 Sodium 136 - 144 mmol/L 140 Potassium 3.7 - 5.1 mmol/L 3.9 Chloride 98 - 107 mmol/L 105 CO2 22 - 30 mmol/L 27 Anion Gap 8 - 15 mmol/L 8 Calcium 8.5 - 10.2 mg/dL 9.6 eGFR >=60 mL/min/1.73m? 70 Legend: (H) High Assessment and Plan 1. Need for influenza vaccination - ICD9: V04.81, ICD10: Z23 (primary diagnosis) - INFLUENZA VACCINE, PRSV FREE, AGE 65+ YR, HIGH DOSE, TRIVALENT (FLUZONE HIGH-DOSE) 2. BPH with obstruction/lower urinary tract symptoms - ICD9: 600.01, 599.69, ICD10: N40.1, N13.8 Trial Flomax. Discussed medication dosage, usage, goals of therapy, and side effects. Call for refill if eff (more content not included)...[facility]09-19-[facility]24 History of Present illness Narrative* Mariano Ocampo MD - 12/01/2023 9:48 AM EDT This note was created using [employer]. Subjective Everton Pardo is a 88 year old male was doing better. Cough and wheezing resolved. Weight was increasing and appetite was better. His glucose was elevated non fasting but A1C was normal. His main concern was ongoing LUTS. Review of Systems Constitutional: Negative for appetite change, fever and unexpected weight change. Respiratory: Negative for cough, shortness of breath and wheezing. Cardiovascular: Negative for chest pain, palpitations and leg swelling. Genitourinary: Positive for decreased urine volume, frequency and urgency. Negative for difficulty urinating and dysuria. ACTIVE PROBLEM LIST Bph With Obstruction/Lower Urinary Tract Symptoms Gout, Unspecified Actinic Keratosis (Premalignant AK) Allergic Rhinitis Hearing Loss of Both Ears Hyperlipidemia Ddd (Degenerative Disc Disease), Lumbar Gerd (Gastroesophageal Reflux Disease) Sleep Apnea, Obstructive Abnormal Lung Sounds Essential Hypertension Impaired Fasting Blood Sugar Nonrheumatic Aortic Valve Stenosis Atherosclerosis of Coronary Artery Nodule of Lower Lobe of Right Lung Cervical Pain Calculus of Gallbladder Without Cholecystitis Without Obstruction Prostate Cancer (Hcc) Social History Tobacco Use Smoking status: Never Smokeless tobacco: Never Tobacco comments: No smoking in childhood home. Vaping Use Vaping status: Never Used Substance Use Topics Alcohol use: No Drug use: No Current Outpatient Medications Medication Sig multivitamin/iron/folic acid (CENTRUM COMPLETE ORAL) Take 1 tablet by mouth once daily. albuterol HFA (PROVENTIL HFA, VENTOLIN HFA) 90 mcg/actuation inhaler Inhale 2 Puffs as instructed every 6 hours as needed for wheezing/shortness of breath. folic acid/multivit-min/lutein (CENTRUM SILVER ORAL) Take 1 tablet by mouth as needed. loratadine (CLARITIN) 10 mg tablet Take 1 tablet by mouth once daily. (Patient taking differently: Take 10 mg by mouth as needed.) clopidogrel (PLAVIX) 75 mg tablet Take 1 tablet by mouth once daily. famotidine (PEPCID) 20 mg tablet Take 1 tablet by mouth every afternoon. atorvastatin (LIPITOR) 80 mg tablet Take 40 mg by mouth daily at bedtime. For cholesterol. amLODIPine (NORVASC) 2.5 mg tablet Take 1 tablet by mouth once daily. finasteride (PROSCAR) 5 mg tablet Take 1 tablet by mouth once daily. metoprolol succinate ER (TOPROL XL) 25 mg 24 hr tablet Take 12.5 mg by mouth daily at bedtime. nitroglycerin sublingual (NITROQUICK) 0.4 mg SL tablet dissolve 1 tablet under the tongue every 5 minutes if needed for ... (REFER TO PRESCRIPTION NOTES). aspirin, enteric coated (ASPIRIN, ENTERIC COATED) 81 mg EC tablet Take 81 mg by mouth once daily. acetaminophen (TYLENOL EXTRA [...] VIT C/DL-E AC/LUT/COPPER/ZNOX (PRESERVISION ORAL) Take 1 tablet by mouth two times a day. Sodium Chloride (OCEAN NASAL) 0.65 % NASAL Mullen Use 1 [place] in the nose as needed. No current facility-administered medications for this visit. Objective BP 116/62 (BP Site: Left Arm, BP Position: Sitting, BP Cuff Size: Large Adult) Pulse (!) 52 Temp 36.4 C (97.5 F) (Temporal) Resp 16 Wt 70.4 kg (155 lb 3.3 oz) BMI 24.22 kg/m Physical Exam Constitutional: General: He is not in acute distress. Cardiovascular: Rate and Rhythm: Bradycardia present. Heart sounds: No murmur heard. No gallop. Pulmonary: Effort: No respiratory distress. Breath sounds: Examination of the right-lower field reveals rales. Examination of the left-lower field reveals rales. Rales present. No wheezing. Musculoskeletal: Right lower leg: No edema. Left lower leg: No edema. Neurological: Mental Status: He is alert. Gait: Gait normal. Latest Ref Rng 11/22/2023 Glucose 74 - 99 mg/dL 162 (H) BUN 9 - 24 mg/dL 19 Creatinine 0.73 - 1.22 mg/dL 1.04 Sodium 136 - 144 mmol/L 140 Potassium 3.7 - 5.1 mmol/L 3.9 Chloride 98 - 107 mmol/L 105 CO2 22 - 30 mmol/L 27 Anion Gap 8 - 15 mmol/L 8 Calcium 8.5 - 10.2 mg/dL 9.6 eGFR >=60 mL/min/1.73m 70 Legend: (H) High Assessment and Plan 1. Need for influenza vaccination - ICD9: V04.81, ICD10: Z23 (primary diagnosis) - INFLUENZA VACCINE, PRSV FREE, AGE 65+ YR, HIGH DOSE, TRIVALENT (FLUZONE HIGH-DOSE) 2. BPH with obstruction/lower urinary tract symptoms - ICD9: 600.01, 599.69, ICD10: N40.1, N13.8 Trial Flomax. Discussed medication dosage, usage, goals of therapy, and side effects. Call for refill if effective. - TAMSULOSIN 0.4 MG CAPSULE 3. Impaired fasting blood sugar - ICD9: 790.21, ICD10: R73.01 Stable. - HEMOGLOBIN A1C (POC) 4. Abnormal lung sounds - ICD9: 786.7, ICD10: R09.89 Stable. 5. Hyperlipidemia, unspecified hyperlipidemia type - ICD9: 272.4, ICD10: E78.5 - Controlled - ATORVASTATIN 40 MG TABLET. Reconciled outside medication dose. 6. Encounter for immunization - ICD9: V03.89, ICD10: Z23 - PFIZER-BIONTECH COVID-19 VACCINE AGE 12+ YR Mariano Ocampo MD documented in this encounterWay[facility]09-12-2024 Miscellaneous Notes* Telephone Encounter - Kaye Lozano RN - 11/24/2023 1:27 PM EDT Spouse Silke calling regarding a testing related question. Information provided to patient, Everton. Kaye Lozano RN documented in this encounterWay[facility]09-12-2024 Telephone encounter Note * Telephone Encounter - Kaye Lozano RN - 11/24/2023 1:27 PM EDT Spouse Silke calling regarding a testing related question. Information provided to patient, Everton. Kaye Lozano RN [facility]09-12-[facility] History of Present illness Narrative* Jamzyn Ellison - 11/24/2023 9:30 AM EDT Everton Pardo 1935 11/24/2023 HISTORY OF PRESENT ILLNESS: Everton Pardo is a 87 year old male referred by Dr Ocampo re PSA 5000, bone lesions. Saw Maksim Whitaker written he took last dose of Rx 2 days ago. Had a bone biopsy 08-30-23. Showed metastatic prostate cancer. Here for follow up and first lupron injection. Feels ok, no pain, just tired. Discussed SE lupron, general treatment approach to prostate cancer, treatment goals. Here for follow up, doing well. PSA down We have clearance for zometa Interval Hx: Mr. Pardo presents today with his spouse for follow up, Lupron and zometa. He reports feeling well overall. Denies fevers, chills or NS. Occasional hot flashes are tolerable. Denies new issues. Denies new aches or pains. No SOB, CP, or palpitations. No CAR, dizziness, or changes in vision. Denies N/V/C/D. Occasional constipation managed with prune juice. No changes in bowel or bladder habits. No rash or skin changes. Denies bleeding or bruising. No edema. PAST MEDICAL HISTORY 09/11/2009: History of Malignant Neoplasm of Skin: BCC & SCC 09/18/2009: Allergic rhinitis Comment: Dr. Mccormack, immunotherapy. 09/14/2022: Atherosclerosis of coronary artery 06/09/2006: BRACHIAL NEURITIS NOS 01/31/2023: Calculus of gallbladder without cholecystitis without obstruction 11/29/2005: Cervicalgia 01/02/2013: Chronic prostatitis No date: Depression 08/03/2017: Disorder of scapula 06/28/2001: Diverticulosis of colon Comment: Tortuous colon 10/19/2007: ELEVATED PROSTATE SPECIFIC ANTIGEN Comment: PSA 3.8 in -, 4.7 in -08, 4.3 in -09: Malgieri rec routine follow up No date: Environmental allergies 10/08/2019: Essential hypertension 08/13/1999: Gastritis 11/29/2005: GENERAL OSTEOARTHROSIS 09/03/2008: GOUT NOS Comment: Uric acid 5.8 in 6-, 7.9 in 8- (during acute attack) 01/07/2014: Hearing loss of both ears 10/19/2007: Hypertrophy of prostate with urinary obstruction and other lower urinary tract symptoms (LUTS) 09/03/2008: Lumbago Comment: MRI 10: small central herniation at L4-5, mild DDD L4-5 and L5-S1 Rec Tylenol and PT in 08-20: need to review old MRI and consider spinal stenosis Reviewed the importance of weight loss as of 08-2008/13/2022: Nonrheumatic aortic valve stenosis 07/19/2007: Periodic limb movement disorder (PLMD) 07/29/2023: 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 I'm not using it anymore. No date: Snoring PAST SURGICAL HISTORY 1945: APPENDECTOMY 09/20/2022: CC CORONARY STENT Comment: PCI D1; RUPESH pLAD, OM1, and rPDA 08/21/2018: COLONOSCOPY 06/28/2001: COLONOSCOPY FLX DX W/COLLJ SPEC WHEN PFRMD Comment: Colonoscopy 08/02/2001: ESOPHAGOGASTRODUODENOSCOPY TRANSORAL DIAGNOSTIC Comment: EGD 12/15/2015: ESOPHAGOGASTRODUODENOSCOPY TRANSORAL DIAGNOSTIC Comment: EGD 09/13/2022: LEFT HEART CATH,PERCUTANEOUS 2010: PAST SURGICAL HISTORY OF Comment: cysts, skin lesions, basal cell cancer 08/2012: PROSTATE BIOPSY FAMILY HISTORY Problem Relation Age of Onset Cancer Mother Pt states does not remember type Heart Father [place] age 60s GI Sister gastrectomy Cancer Sister stomach cancer other (fibromyalgia) Sister Prostate Cancer Brother No Known Problems Other Lung disease Social History Tobacco Use Smoking status: Never Smokeless tobacco: Never Tobacco comments: No smoking in childhood home. Vaping Use Vaping status: Never Used Substance Use Topics Alcohol use: No Drug use: No ALLERGIES: ALLERGIES Allergen Reactions Zetia [Ezetimibe] Other: See Comments Joint pain Gabapentin Shortness of Breath, Other: See Comments dizziness Mobic [Meloxicam] GI Upset Sulfa (Sulfonamide * unkown CURRENT OUTPATIENT MEDICATIONS: multivitamin/iron/folic acid (CENTRUM COMPLETE ORAL)^Take 1 tablet by mouth once daily.^Disp: ^Rfl: traMADol (ULTRAM) 50 mg tablet^Take 50 mg by mouth every 6 hours as needed for pain.^Disp: ^Rfl: albuterol HFA (PROVENTIL HFA, VENTOLIN HFA) 90 mcg/actuation inhaler^Inhale 2 Puffs as instructed every 6 hours as needed for wheezing/shortness of breath.^Disp: 18 g^Rfl: 0 oxyCODONE-acetaminophen (PERCOCET) 5-325 mg tablet^Take 1 tablet by mouth every 4 hours as needed.^Disp: ^Rfl: folic acid/multivit-min/lutein (CENTRUM SILVER ORAL)^Take 1 tablet by mouth as needed.^Disp: ^Rfl: loratadine (CLARITIN) 10 mg tablet^Take 1 tablet by mouth once daily.^Disp: ^Rfl: (Patient taking differently: Take 10 mg by mouth as needed.) clopidogrel (PLAVIX) 75 mg tablet^Take 1 tablet by mouth once daily.^Disp: ^Rfl: famotidine (PEPCID) 20 mg tablet^Take 1 tablet by mouth every afternoon.^Disp: ^Rfl: atorvastatin (LIPITOR) 80 mg tablet^Take 40 mg by mouth daily at bedtime. For cholesterol.^Disp: ^Rfl: amLODIPine (NORVASC) 2.5 mg tablet^Take 1 tablet by mouth once daily.^Disp: 90 tablet^Rfl: 3 finasteride (PROSCAR) 5 mg tablet^Take 1 tablet by mouth once daily.^Disp: 90 tablet^Rfl: 3 metoprolol succinate ER (TOPROL XL) 25 mg 24 hr tablet^Take 12.5 mg by mouth daily at bedtime.^Disp: ^Rfl: nitroglycerin sublingual (NITROQUICK) 0.4 mg SL tablet^dissolve 1 tablet under the tongue every 5 minutes if needed for ... (REFER TO PRESCRIPTION NOTES).^Disp: ^Rfl: aspirin, enteric coated (ASPIRIN, ENTERIC COATED) 81 mg EC tablet^Take 81 mg by mouth once daily.^Disp: ^Rfl: acetaminophen (TYLENOL EXTRA STRENGTH ORAL)^Take 1 tablet by mouth as needed.^Disp: ^Rfl: ketoconazole (NIZORAL) 2 % shampoo^WASH FACE AND EARS - AND LET SIT FOR 5 MINUTES as directed ALTERN... (REFER TO PRESCRIPTION NOTES).^Disp: ^Rfl: 0 fluticasone 50 mcg/actuation nasal spray^Use 2 Sprays in each nostril once daily as needed for Cold/Allergy Symptoms. Rinse mouth after use.^Disp: ^Rfl: VIT C/DL-E AC/LUT/COPPER/ZNOX (PRESERVISION ORAL)^Take 1 tablet by mouth two times a day.^Disp: ^Rfl: Sodium Chloride (OCEAN NASAL) 0.65 % NASAL M[place]^Use 1 [place] in the nose as needed.^Disp: ^Rfl: 0 predniSONE (DELTASONE) 10 mg tablet^take 4 tablets by mouth once daily for 3 days then 3 tablets for ... (REFER TO PRESCRIPTION NOTES).^Disp: ^Rfl: (Patient not taking: Reported on 09/01/2023) lidocaine (LIDODERM) 5 %^Apply 1 Patch as directed every 24 hours. Remove old patch prior to placing new patch. Location: upper back^Disp: 30 Patch^Rfl: 2 (Patient not taking: Reported on 07/25/2023) REVIEW OF SYSTEMS: GENERAL: No fever, night sweats, weight loss or malaise. All other reviewed and negative other than HPI. All systems reviewed on 11/24/2023 with pertinent positives and negatives as outlined in the interval history. PHYSICAL EXAMINATION: VITAL SIGNS: BP 109/63 Pulse 49 Temp (Src) 97.4 (Temporal) Wt 155 lb 8 oz (70.5kg) SpO2 99% GENERAL APPEARANCE: Well appearing, in no acute distress, alert and oriented x3, well-hydrated, well nourished. HEENT: Normocephalic, no sclera icterus, external ears normal Neck: Supple, no JVD. Chest: Clear bilaterally, no wheezes, not labored. Heart: Normal S1 and S2, no abnormal sounds Abdomen: Soft, nontender, nondistended Extremities: No edema Neurological: Grossly intact Skin: Warm and dry with no rashes or ulcerations. Hematologic: no bruising or petechiae. Psychiatric: Alert and oriented x3. Emotional well-being assessment was performed. Pt denies depression, distress, and or problems with coping or adjustment. I have performed the physical exam today (11/24/2023) and have edited the note to correlate with current findings. Labs: Lab Results Component Value Date PSA 44.24 (H) 11/22/2023 PSA 140.10 (H) 10/05/2023 PSA >5,000.00 (H) 07/29/2023 PSA >5,000.00 (H) 07/27/2023 PSA 2.30 12/29/2017 PSA 2.17 01/02/2014 PSA 4.08 (H) 09/11/2013 PSA 5.48 (H) 12/18/2012 PSA 4.04 (H) 06/16/2012 PSA 4.68 (H) 01/10/2012 CLINICAL IMPRESSION/ PLAN Prostate cancer metastatic to bone. 1. Lupron and zometa q 3 months - discussed with Dr. Guerra continue with lupron alone, continue to follow PSA consider zytiga 2. Dental clearance form received for zometa (see encounter 11/10/23) - reviewed administration schedule and side effects with patient and spouse today. 3. Back q 3 months with PSA, cbc, cmp RTC as scheduled with next hyunron, zometa Jazmyn Ellison APRN.CONTRACT CLERK I spent a total of 30 minutes on the date of the service which included preparing to see the patient, [id number] patient care, completing clinical documentation, and obtaining and/or reviewing separately obtained history. Portions of this note including HPI, ROS, impression/plan may have been copied forward as to provide important historical information essential in contributing to medical decision making. Documentation has been reviewed and edited as necessary to support clinical decision making for today's visit and to reflect my own independent evaluation of this patient. documented in this encounterWayne Hospital09-12-2024 NoteHNO ID: [id number] Author: JAZMNY ELLISON, ? Service: ? Author Type: Nurse Practitioner Type: Progress Notes Filed: 11/24/2023 11:17 Note Text: Everton Pardo 1935 11/24/2023 HISTORY OF PRESENT ILLNESS: Everton Pardo is a 87 year old male referred by Dr Ocampo re PSA 5000, bone lesions. Saw Maksim Whitaker written he took last dose of Rx 2 days ago. Had a bone biopsy 08-30-23. Showed metastatic prostate cancer. Here for follow up and first lupron injection. Feels ok, no pain, just tired. Discussed SE dennis, general treatment approach to prostate cancer, treatment goals. Here for follow up, doing well. PSA down We have clearance for zometa Interval Hx: Mr. Pardo presents today with his spouse for follow up, Lupron and zometa. He reports feeling well overall. Denies fevers, chills or NS. Occasional hot flashes are tolerable. Denies new issues. Denies new aches or pains. No SOB, CP, or palpitations. No CAR, dizziness, or changes in vision. Denies N/V/C/D. Occasional constipation managed with prune juice. No changes in bowel or bladder habits. No rash or skin changes. Denies bleeding or bruising. No edema. PAST MEDICAL HISTORY 09/11/2009: History of Malignant Neoplasm of Skin: BCC AND SCC 09/18/2009: Allergic rhinitis Comment: Dr. Mccormack, immunotherapy. 09/14/2022: Atherosclerosis of coronary artery 06/09/2006: BRACHIAL NEURITIS NOS 01/31/2023: Calculus of gallbladder without cholecystitis without obstruction 11/29/2005: Cervicalgia 01/02/2013: Chronic prostatitis No date: Depression 08/03/2017: Disorder of scapula 06/28/2001: Diverticulosis of colon Comment: Tortuous colon 10/19/2007: ELEVATED PROSTATE SPECIFIC ANTIGEN Comment: PSA 3.8 in -, 4.7 in -08, 4.3 in -: Malgieri rec routine follow up No date: Environmental allergies 10/08/2019: Essential hypertension 08/13/1999: Gastritis 11/29/2005: GENERAL OSTEOARTHROSIS 09/03/2008: GOUT NOS Comment: Uric acid 5.8 in -, 7.9 in - (during acute attack) 01/07/2014: Hearing loss of both ears 10/19/2007: Hypertrophy of prostate with urinary obstruction and other lower urinary tract symptoms (LUTS) 09/03/2008: Lumbago Comment: MRI : small central herniation at L4-5, mild DDD L4-5 and L5-S1 Rec Tylenol and PT in 08-20: need to review old MRI and consider spinal stenosis Reviewed the importance of weight loss as of 08-2008/13/2022: Nonrheumatic aortic valve stenosis 07/19/2007: Periodic limb movement disorder (PLMD) 07/29/2023: 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 I'm not using it anymore. No date: Snoring PAST SURGICAL HISTORY 1945: APPENDECTOMY 09/20/2022: CC CORONARY STENT Comment: PCI D1; RUPESH pLAD, OM1, and rPDA 08/21/2018: COLONOSCOPY 06/28/2001: COLONOSCOPY FLX DX W/COLLJ SPEC WHEN PFRMD Comment: Colonoscopy 08/02/2001: ESOPHAGOGASTRODUODENOSCOPY TRANSORAL DIAGNOSTIC Comment: EGD 12/15/2015: ESOPHAGOGASTRODUODENOSCOPY TRANSORAL DIAGNOSTIC Comment: EGD 09/13/2022: LEFT HEART CATH,PERCUTANEOUS 2010: PAST SURGICAL HISTORY OF Comment: cysts, skin lesions, basal cell cancer 08/2012: PROSTATE BIOPSY FAMILY HISTORY Problem Relation Age of Onset Cancer Mother Pt states does not remember type Heart Father [place] age 60s GI Sister gastrectomy Cancer Sister stomach cancer other (fibromyalgia) Sister Prostate Cancer Brother No Known Problems Other Lung disease Social History Tobacco Use Smoking status: Never Smokeless tobacco: Never Tobacco comments: No smoking in childhood home. Vaping Use Vaping status: Never Used Substance Use Topics Alcohol use: No Drug use: No ALLERGIES: ALLERGIES Allergen Reactions Zetia [Ezetimibe] Other: See Comments Joint pain Gabapentin Shortness of Breath, Other: See Comments dizziness Mobic [Meloxicam] GI Upset Sulfa (Sulfonamide * unkown CURRENT OUTPATIENT MEDICATIONS: multivitamin/iron/folic acid (CENTRUM COMPLETE ORAL)Take 1 tablet by mouth once daily.Disp: Rfl: traMADol (ULTRAM) 50 mg tabletTake 50 mg by mouth every 6 hours as needed for pain.Disp: Rfl: albuterol HFA (PROVENTIL HFA, VENTOLIN HFA) 90 mcg/actuation inhalerInhale 2 Puffs as instructed every 6 hours as needed for wheezing/shortness of breath.Disp: 18 gRfl: 0 oxyCODONE-acetaminophen (PERCOCET) 5-325 mg tabletTake 1 tablet by mouth every 4 hours as needed.Disp: Rfl: folic acid/multivit-min/lutein (CENTRUM SILVER ORAL)Take 1 tablet by mouth as needed.Disp: Rfl: loratadine (CLARITIN) 10 mg tabletTake 1 tablet by mouth once daily.Disp: Rfl: (Patient taking differently: Take 10 mg by mouth as needed.) clopidogrel (PLAVIX) 75 mg tabletTake 1 tablet by mouth once daily.Disp: Rfl: famotidine (PEPCID) 20 mg tabletTake 1 tablet by mouth every afternoon. (more content not included)...[facility]08-30-2024 Telephone encounter Note* Telephone Encounter - Kaye Lozano RN - 11/11/2023 11:35 AM EDT Pt's spouse calling and states to disregard refill request for atorvastatin please. Kaye Lozano RN [facility]08-30-2024 Miscellaneous Notes* Telephone Encounter - Kaye Lozano RN - 11/11/2023 11:35 AM EDT Pt's spouse calling and states to disregard refill request for atorvastatin please. Kaye Lozano RN * Telephone Encounter - Ilsa Posada - 11/11/2023 9:17 AM EDT Patient's Silke reports Everton had stopped taking the atorvastatin when they thought it was contributing to his muscle pain. However, they state they believe there were other issues and would like to continue taking the medication. Patient had recently been using 40 mg daily. He has a follow up with Dr. Ocampo on 12-01-23 * Telephone Encounter - Ilsa Posada - 11/11/2023 9:14 AM EDT Prescription Refill Information The patient has been identified by name and date of : Yes Caregiver verified no other encounters exist for this prescription request: Yes Caregiver confirmed with patient/requestor that no other refills are due, in the near future, with this provider at this time: Yes The last office visit in the department: 08-19-23 Does the patient have a future office visit with this provider/department: Yes Requested Prescriptions Pending Prescriptions Disp Refills atorvastatin (LIPITOR) 80 mg tablet 45 tablet 0 Sig: Take 0.5 tablets by mouth daily at bedtime. For cholesterol. Ilsa Francis November 11, 2023 9:17 AM [facility] Telephone encounter Note * Telephone Encounter - Ilsa Posada - 11/11/2023 9:17 AM EDT Patient's Silke reports Everton had stopped taking the atorvastatin when they thought it was contributing to his muscle pain. However, they state they believe there were other issues and would like to continue taking the medication. Patient had recently been using 40 mg daily. He has a follow up with Dr. Ocampo on 12-01-23 [facility] Work Phone: [phone] Telephone encounter Note* Telephone Encounter - Ilsa Posada - 11/11/2023 9:14 AM EDT Prescription Refill Information The patient has been identified by name and date of : Yes Caregiver verified no other encounters exist for this prescription request: Yes Caregiver confirmed with patient/requestor that no other refills are due, in the near future, with this provider at this time: Yes The last office visit in the department: 08-19-23 Does the patient have a future office visit with this provider/department: Yes Requested Prescriptions Pending Prescriptions Disp Refills atorvastatin (LIPITOR) 80 mg tablet 45 tablet 0 Sig: Take 0.5 tablets by mouth daily at bedtime. For cholesterol. Ilsa Francis November 11, 2023 9:17 AM [facility]08-29-2024 Telephone encounter Note* Telephone Encounter - Cruzito Young RN - 11/10/2023 4:25 PM EDT Patient scheduled to start 11/24/23. Morena Young RN [facility] Work Phone: 1(764) 318-424208-29-2024 Miscellaneous Notes* Telephone Encounter - Cruzito Young RN - 11/10/2023 4:25 PM EDT Patient scheduled to start 11/24/23. Morena Young RN * Telephone Encounter - Rupinder Garcia LPN - 11/10/2023 2:32 PM EDT Dental clearance form received, free from disease. Scanned into chart and given to provider. Rupinder Garcia LPN [facility] Telephone encounter Note * Telephone Encounter - Rupinder Garcia LPN - 11/10/2023 2:32 PM EDT Dental clearance form received, free from disease. Scanned into chart and given to provider. Rupinder Garcia LPN [facility]07-26-2024 NoteHNO ID: [id number] Author: MASTER GUERRA MD Service: ? Author Type: Physician Type: Progress Notes Filed: 10/07/2023 15:35 Note Text: (Elements copied from my note dated September 01, 2023, have been reviewed and updated where appropriate, and all reflect current assessment and medical decision making from today's encounter, October 07, 2023) HISTORY OF PRESENT ILLNESS: Everton Pardo is a 87 year old male referred by Dr Ocampo re PSA 5000, bone lesions. Saw Maksim Whitaker written he took last dose of Rx 2 days ago. Had a bone biopsy 08-30-23. Showed metastatic prostate cancer. Here for follow up and first lupron injection. Feels ok, no pain, just tired. Discussed SE dennis, general treatment approach to prostate cancer, treatment goals. Here for follow up, doing well. 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 RECOMMENDATION/PLAN: 1. Resume Casodex another month, then stop 2. Lupron and zometa q 3 months 3. Dental clearance form given for zometa 4. Back q 3 months with PSA. Written and verbal health teaching given to patient, patient verbalizes understanding and agrees with treatment plan. 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 Mccormack, immunotherapy. 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 Diverticulosis of colon 06/28/2001 Tortuous colon ELEVATED PROSTATE SPECIFIC ANTIGEN 10/19/2007 PSA 3.8 in 9-06, 4.7 in 4-08, 4.3 in 7-09: Malgieri rec routine follow up Environmental allergies Essential hypertension 10/08/2019 Gastritis 08/13/1999 GENERAL OSTEOARTHROSIS 11/29/2005 GOUT NOS 09/03/2008 Uric acid 5.8 in 6-09, 7.9 in 8- (during acute attack) Hearing loss of both ears 01/07/2014 Hypertrophy of prostate with urinary obstruction and other lower urinary tract symptoms (LUTS) 10/19/2007 Lumbago 09/03/2008 MRI : small central herniation at L4-5, mild DDD L4-5 and L5-S1 Rec Tylenol and PT in 08-20: need to review old MRI and consider spinal stenosis Reviewed the importance of weight loss as of 08-20 Nonrheumatic aortic valve stenosis 08/13/2022 Periodic limb movement disorder (PLMD) 07/19/2007 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 I'm not using it anymore. Snoring PAST SURGICAL HISTORY Procedure Laterality Date APPENDECTOMY 1945 CC CORONARY STENT 09/20/2022 PCI D1; RUPESH pLAD, OM1, and rPDA COLONOSCOPY 08/21/2018 COLONOSCOPY FLX DX W/COLLJ SPEC WHEN PFRMD 06/28/2001 Colonoscopy ESOPHAGOGASTRODUODENOSCOPY TRANSORAL DIAGNOSTIC 08/02/2001 EGD ESOPHAGOGASTRODUODENOSCOPY TRANSORAL DIAGNOSTIC 12/15/2015 EGD LEFT HEART CATH,PERCUTANEOUS 09/13/2022 PAST SURGICAL HISTORY OF 2010 cysts, skin lesions, basal cell cancer PROSTATE BIOPSY 08/2012 FAMILY HISTORY Problem Relation Age of Onset Cancer Mother Pt states does not remember type Heart Father [place] age 60s GI Sister gastrectomy Cancer Sister stomach cancer other (fibromyalgia) Sister Prostate Cancer Brother No Known Problems Other Lung disease Social History Tobacco Use Smoking status: Never Smokeless tobacco: Never Tobacco comments: No smoking in childhood home. Vaping Use Vaping Use: Never used Substance Use Topics Alcohol use: No Drug use: No ALLERGIES: ALLERGIES Allergen Reactions Zetia [Ezetimibe] Other: See Comments Joint pain Gabapentin Shortness of Breath, Other: See Comments dizziness Mobic [Meloxicam] GI Upset Sulfa (Sulfonamide * unkown CURRENT OUTPATIENT MEDICATIONS: albuterol HFA (PROVENTIL HFA, VENTOLIN HFA) 90 mcg/actuation inhaler Inhale 2 Puffs as instructed every 6 hours as needed for wheezing/shortness of breath. doxycycline hyclate (VIBRAMYCIN) 100 mg capsule Take 100 mg by mouth two times a day. oxyCODONE-acetaminophen (PERCOCET) 5-325 mg tablet Take 1 tablet by mouth every 4 hours as needed. folic acid/multivit-min/lutein (CENTRUM SILVER ORAL) Take 1 tablet by mouth as needed. loratadine (CLARITIN) 10 mg tablet Take 1 tablet by mouth once daily. (Patient taking differently: Take 10 mg by mouth as needed.) clopidogrel (PLAVIX) 75 mg tablet Take 1 tablet by mouth once daily. famotidine (PEPCID) 20 mg tablet Take 1 tablet by mouth every afternoon. amLODIPine (NORVASC) 2.5 mg tablet Take 1 tablet by mouth once daily. finasteride (PROSCAR) 5 mg tablet Take 1 tablet by mouth once daily. metoprolol succinate ER (TOPROL XL) 25 mg 24 hr tablet Take 25 mg by mouth daily at bedtime. nitro (more content not included)...[facility]07-26-2024 History of Present illness Narrative* Master Guerra MD - 10/07/2023 8:42 AM EDT (Elements copied from my note dated September 01, 2023, have been reviewed and updated where appropriate, and all reflect current assessment and medical decision making from today's encounter, October 07, 2023) HISTORY OF PRESENT ILLNESS: Everton Pardo is a 87 year old male referred by Dr Ocampo re PSA 5000, bone lesions. Saw Maksim Whitaker written he took last dose of Rx 2 days ago. Had a bone biopsy 08-30-23. Showed metastatic prostate cancer. Here for follow up and first lupron injection. Feels ok, no pain, just tired. Discussed SE lupron, general treatment approach to prostate cancer, treatment goals. Here for follow up, doing well. 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 RECOMMENDATION/PLAN: 1. Resume Casodex another month, then stop 2. Lupron and zometa q 3 months 3. Dental clearance form given for zometa 4. Back q 3 months with PSA. Written and verbal health teaching given to patient, patient verbalizes understanding and agrees with treatment plan. 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 Mccormack, immunotherapy. 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 Diverticulosis of colon 06/28/2001 Tortuous colon ELEVATED PROSTATE SPECIFIC ANTIGEN 10/19/2007 PSA 3.8 in -, 4.7 in -, 4.3 in 09-19: Malgieri rec routine follow up Environmental allergies Essential hypertension 10/08/2019 Gastritis 08/13/1999 GENERAL OSTEOARTHROSIS 11/29/2005 GOUT NOS 09/03/2008 Uric acid 5.8 in 6-, 7.9 in - (during acute attack) Hearing loss of both ears 01/07/2014 Hypertrophy of prostate with urinary obstruction and other lower urinary tract symptoms (LUTS) 10/19/2007 Lumbago 09/03/2008 MRI 10-99: small central herniation at L4-5, mild DDD L4-5 and L5-S1 Rec Tylenol and PT in 08-20: need to review old MRI and consider spinal stenosis Reviewed the importance of weight loss as of 08-20 Nonrheumatic aortic valve stenosis 08/13/2022 Periodic limb movement disorder (PLMD) 07/19/2007 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 I'm not using it anymore. Snoring PAST SURGICAL HISTORY Procedure Laterality Date APPENDECTOMY 1944 CC CORONARY STENT 09/20/2022 PCI D1; RUPESH pLAD, OM1, and rPDA COLONOSCOPY 08/21/2018 COLONOSCOPY FLX DX W/COLLJ SPEC WHEN PFRMD 06/28/2001 Colonoscopy ESOPHAGOGASTRODUODENOSCOPY TRANSORAL DIAGNOSTIC 08/02/2001 EGD ESOPHAGOGASTRODUODENOSCOPY TRANSORAL DIAGNOSTIC 12/15/2015 EGD LEFT HEART CATH,PERCUTANEOUS 09/13/2022 PAST SURGICAL HISTORY OF 2010 cysts, skin lesions, basal cell cancer PROSTATE BIOPSY 08/2012 FAMILY HISTORY Problem Relation Age of Onset Cancer Mother Pt states does not remember type Heart Father [place] age 60s GI Sister gastrectomy Cancer Sister stomach cancer other (fibromyalgia) Sister Prostate Cancer Brother No Known Problems Other Lung disease Social History Tobacco Use Smoking status: Never Smokeless tobacco: Never Tobacco comments: No smoking in childhood home. Vaping Use Vaping Use: Never used Substance Use Topics Alcohol use: No Drug use: No ALLERGIES: ALLERGIES Allergen Reactions Zetia [Ezetimibe] Other: See Comments Joint pain Gabapentin Shortness of Breath, Other: See Comments dizziness Mobic [Meloxicam] GI Upset Sulfa (Sulfonamide * unkown CURRENT OUTPATIENT MEDICATIONS: albuterol HFA (PROVENTIL HFA, VENTOLIN HFA) 90 mcg/actuation inhaler Inhale 2 Puffs as instructed every 6 hours as needed for wheezing/shortness of breath. doxycycline hyclate (VIBRAMYCIN) 100 mg capsule Take 100 mg by mouth two times a day. oxyCODONE-acetaminophen (PERCOCET) 5-325 mg tablet Take 1 tablet by mouth every 4 hours as needed. folic acid/multivit-min/lutein (CENTRUM SILVER ORAL) Take 1 tablet by mouth as needed. loratadine (CLARITIN) 10 mg tablet Take 1 tablet by mouth once daily. (Patient taking differently: Take 10 mg by mouth as needed.) clopidogrel (PLAVIX) 75 mg tablet Take 1 tablet by mouth once daily. famotidine (PEPCID) 20 mg tablet Take 1 tablet by mouth every afternoon. amLODIPine (NORVASC) 2.5 mg tablet Take 1 tablet by mouth once daily. finasteride (PROSCAR) 5 mg tablet Take 1 tablet by mouth once daily. metoprolol succinate ER (TOPROL XL) 25 mg 24 hr tablet Take 25 mg by mouth daily at bedtime. nitroglycerin sublingual (NITROQUICK) 0.4 mg SL tablet dissolve 1 tablet under the tongue every 5 minutes if needed for ... (REFER TO PRESCRIPTION NOTES). aspirin, enteric coated (ASPIRIN, ENTERIC COATED) 81 mg EC tablet Take 81 mg by mouth once daily. acetaminophen (TYLENOL EXTRA [...] VIT C/DL-E AC/LUT/COPPER/ZNOX (PRESERVISION ORAL) Take 1 tablet by mouth two times a day. Sodium Chloride (OCEAN NASAL) 0.65 % NASAL [place] Use 1 [place] in the nose as needed. predniSONE (DELTASONE) 10 mg tablet take 4 tablets by mouth once daily for 3 days then 3 tablets for ... (REFER TO PRESCRIPTION NOTES). (Patient not taking: Reported on 09/01/2023) traMADol (ULTRAM) 50 mg tablet Take 1 tablet by mouth once daily as needed for pain for up to 180 days. (Patient not taking: Reported on 07/25/2023) atorvastatin (LIPITOR) 80 mg tablet Take 0.5 tablets by mouth daily at bedtime. For cholesterol. (Patient not taking: Reported on 07/25/2023) lidocaine (LIDODERM) 5 % Apply 1 Patch as directed every 24 hours. Remove old patch prior to placing new patch. Location: upper back (Patient not taking: Reported on 07/25/2023) REVIEW OF SYSTEMS: GENERAL: No fever, night sweats, weight loss or malaise. All other reviewed and negative other than HPI. PHYSICAL EXAMINATION: VITAL SIGNS: BP 126/53 Pulse 41 Temp (Src) 97.1 (Temporal) Wt 153 lb 8 oz (69.6kg) SpO2 100% GENERAL APPEARANCE: Well appearing, in no acute distress, alert and oriented x3, well-hydrated, well nourished. I spent a total of 30 minutes on the date of the service which included preparing to see the patient, [id number] patient care, completing clinical documentation, obtaining and/or reviewing separately obtained history, counseling and educating the patient/family/caregiver, ordering medications, juliana ts, or procedures, independently interpreting results (not separately reported), communicating results to the patient/family/caregiver, and care coordination (not separately reported). Electronically Signed: Master Guerra MD October 07, 2023 documented [facility] encounter[facility]07-23-2024 Telephone encounter Note * Telephone Encounter - Dianne Monzon - 10/04/2023 2:31 PM EDT Rescheduled with spouse [facility] Work Phone: [phone]) 199-331707-23-2024 Miscellaneous Notes* Telephone Encounter - Dianne Monzon - 10/04/2023 2:31 PM EDT Rescheduled with spouse * Telephone Encounter - Ashlyn Gonzales - 10/04/2023 2:22 PM EDT Left message for patient to return call. When he calls, please see if he can come in to se Dr. Guerra at 8:50 on 10/06. 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 When he calls, please see if he can come in to se Dr. Guerra at 8:50 on 10/06. 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.) Ashlyn Gonzales [facility]07-17-2024 Telephone encounter Note* Telephone Encounter - Dianne Monzon - 09/28/2023 9:04 AM EDT Prescription Refill Information The patient has been identified by name and date of : Yes Caregiver verified no other encounters exist for this prescription request: Yes Caregiver confirmed with patient/requestor that no other refills are due, in the near future, with this provider at this time: Yes The last office visit in the department: Does the patient have a future office visit with this provider/department: Yes Requested Prescriptions Pending Prescriptions Disp Refills bicalutamide (CASODEX) 50 mg tablet 30 tablet 0 Sig: Take 1 tablet by mouth once daily. Dianne Francis September 28, 2023 9:04 AM [facility] Work Phone: 1(231) 338-775307-17-2024 Miscellaneous Notes* Telephone Encounter - Dianne Monzon - 09/28/2023 9:04 AM EDT Prescription Refill Information The patient has been identified by name and date of : Yes Caregiver verified no other encounters exist for this prescription request: Yes Caregiver confirmed with patient/requestor that no other refills are due, in the near future, with this provider at this time: Yes The last office visit in the department: Does the patient have a future office visit with this provider/department: Yes Requested Prescriptions Pending Prescriptions Disp Refills bicalutamide (CASODEX) 50 mg tablet 30 tablet 0 Sig: Take 1 tablet by mouth once daily. Dianne Francis September 28, 2023 9:04 AM documented in this encounterWay[facility] Hospital06-28-2024 Telephone encounter Note * Telephone Encounter - Cruzito Young RN - 09/09/2023 4:17 PM EDT calls in and states that area had not changed or worsen since calling in on Tuesday. States can feel a golf ball size lump under the skin at injection site. It is sore to the touch but no longerpink or warm to the touch. It is aggravating b/c it it at his belt line. Denies fever or other issues/concerns. Instructed to call if symptoms worsen. Reminded of after hours number. Morena Young RN [facility] Work Phone: 1(209) 507-494106-28-2024 Miscellaneous Notes* Telephone Encounter - Cruzito Young RN - 09/09/2023 4:17 PM EDT calls in and states that area had not changed or worsen since calling in on Tuesday. States can feel a golf ball size lump under the skin at injection site. It is sore to the touch but no longerpink or warm to the touch. It is aggravating b/c it it at his belt line. Denies fever or other issues/concerns. Instructed to call if symptoms worsen. Reminded of after hours number. Morena Young RN * Telephone Encounter - Cruzito Young RN - 09/09/2023 11:13 AM EDT Call to patient, message left to call me back and phone/contact number provided. Cruzito Young RN * Telephone Encounter - Cruzito Young RN - 09/07/2023 10:14 AM EDT Call to patient for an update, no answer, message left to call me back and phone/contact number provided. Cruzito Young RN * Telephone Encounter - Rupinder Garcia LPN - 09/06/2023 1:09 PM EDT Pt got his first Eligard injection 08/31. calls stating pt has c/o the area is painful, slightly swollen, pink, warm to touch. Pt stateshe believes the swelling has increased in size over the last couple days. No fevers. Denies nausea vomiting diarrhea headaches or itching. Did not have issues in the area the day of, the symptoms started the next day. He is going to try a cool compress as he has not tried this yet. Please advise. Rupinder Garcia LPN documented in this encounterWayne Hospital06-28-2024 Telephone encounter Note * Telephone Encounter - Cruzito Young RN - 09/09/2023 11:13 AM EDT Call to patient, message left to call me back and phone/contact number provided. Cruzito Young RN [facility]06-26-2024 Telephone encounter Note* Telephone Encounter - Cruzito Young RN - 09/07/2023 10:14 AM EDT Call to patient for an update, no answer, message left to call me back and phone/contact number provided. Cruzito Young RN [facility]06-25-2024 Telephone encounter Note* Telephone Encounter - Rupinder Garcia LPN - 09/06/2023 1:09 PM EDT Pt got his first Eligard injection 08/31. calls stating pt has c/o the area is painful, slightly swollen, pink, warm to touch. Pt stateshe believes the swelling has increased in size over the last couple days. No fevers. Denies nausea vomiting diarrhea headaches or itching. Did not have issues in the area the day of, the symptoms started the next day. He is going to try a cool compress as he has not tried this yet. Please advise. Rupinder Garcia LPN [facility]06-20-2024 Nurse Note* Rupinder Garcia LPN - 09/01/2023 10:10 AM EDT Pt here for injection of Eligard. Given SQ in RLQ. Pt tolerated well. Pt observed for 15 minutes for signs or symptoms of adverse effects, none noted. Rupinder Garcia LPN [facility]06-20-2024 Nurse Note* Rupinder Garcia LPN - 09/01/2023 10:10 AM EDT Pt here for injection of Eligard. Given SQ in RLQ. Pt tolerated well. Pt observed for 15 minutes for signs or symptoms of adverse effects, none noted. Rupinder Garcia LPN documented in this encounterWayne Hospital06-20-2024 History of Present illness Narrative* Master Guerra MD - 09/01/2023 8:42 AM EDT HISTORY OF PRESENT ILLNESS: Everton Pardo is a 87 year old male referred by Dr Ocampo re PSA 5000, bone lesions. Saw Maksim Whitaker written he took last dose of Rx 2 days ago. Had a bone biopsy 08-30-23. Showed metastatic prostate cancer. Here for follow up and first lupron injection. Feels ok, no pain, just tired. Discussed SE dennis, general treatment approach to prostate cancer, treatment goals. 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 RECOMMENDATION/PLAN: 1. Resume Casodex another month, Rx sent 2. Lupron today and q 3 months 3. Dental clearance form given for zometa 4. Back in 6 weeks with PSA. Written and verbal health teaching given to patient, patient verbalizes understanding and agrees with treatment plan. 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 Mccormack, immunotherapy. 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 Diverticulosis of colon 06/28/2001 Tortuous colon ELEVATED PROSTATE SPECIFIC ANTIGEN 10/19/2007 PSA 3.8 in 9-06, 4.7 in 4-08, 4.3 in -09: Malgieri rec routine follow up Environmental allergies Essential hypertension 10/08/2019 Gastritis 08/13/1999 GENERAL OSTEOARTHROSIS 11/29/2005 GOUT NOS 09/03/2008 Uric acid 5.8 in 6-, 7.9 in 8- (during acute attack) Hearing loss of both ears 01/07/2014 Hypertrophy of prostate with urinary obstruction and other lower urinary tract symptoms (LUTS) 10/19/2007 Lumbago 09/03/2008 MRI 10-: small central herniation at L4-5, mild DDD L4-5 and L5-S1 Rec Tylenol and PT in 08-20: need to review old MRI and consider spinal stenosis Reviewed the importance of weight loss as of 08-20 Nonrheumatic aortic valve stenosis 08/13/2022 Periodic limb movement disorder (PLMD) 07/19/2007 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 I'm not using it anymore. Snoring PAST SURGICAL HISTORY Procedure Laterality Date APPENDECTOMY 1945 CC CORONARY STENT 09/20/2022 PCI D1; RUPESH pLAD, OM1, and rPDA COLONOSCOPY 08/21/2018 COLONOSCOPY FLX DX W/COLLJ SPEC WHEN PFRMD 06/28/2001 Colonoscopy ESOPHAGOGASTRODUODENOSCOPY TRANSORAL DIAGNOSTIC 08/02/2001 EGD ESOPHAGOGASTRODUODENOSCOPY TRANSORAL DIAGNOSTIC 12/15/2015 EGD LEFT HEART CATH,PERCUTANEOUS 09/13/2022 PAST SURGICAL HISTORY OF 2010 cysts, skin lesions, basal cell cancer PROSTATE BIOPSY 08/2012 FAMILY HISTORY Problem Relation Age of Onset Cancer Mother Pt states does not remember type Heart Father [place] age 60s GI Sister gastrectomy Cancer Sister stomach cancer other (fibromyalgia) Sister Prostate Cancer Brother No Known Problems Other Lung disease Social History Tobacco Use Smoking status: Never Smokeless tobacco: Never Tobacco comments: No smoking in childhood home. Substance Use Topics Alcohol use: No Drug use: No ALLERGIES: ALLERGIES Allergen Reactions Zetia [Ezetimibe] Other: See Comments Joint pain Gabapentin Shortness of Breath, Other: See Comments dizziness Mobic [Meloxicam] GI Upset Sulfa (Sulfonamide * unkown CURRENT OUTPATIENT MEDICATIONS: albuterol HFA (PROVENTIL HFA, VENTOLIN HFA) 90 mcg/actuation inhaler^Inhale 2 Puffs as instructed every 6 hours as needed for wheezing/shortness of breath.^Disp: 18 g^Rfl: 0 oxyCODONE-acetaminophen (PERCOCET) 5-325 mg tablet^Take 1 tablet by mouth every 4 hours as needed.^Disp: ^Rfl: folic acid/multivit-min/lutein (CENTRUM SILVER ORAL)^Take 1 tablet by mouth once daily.^Disp: ^Rfl: loratadine (CLARITIN) 10 mg tablet^Take 1 tablet by mouth once daily.^Disp: ^Rfl: clopidogrel (PLAVIX) 75 mg tablet^Take 1 tablet by mouth once daily.^Disp: ^Rfl: famotidine (PEPCID) 20 mg tablet^Take 1 tablet by mouth every afternoon.^Disp: ^Rfl: amLODIPine (NORVASC) 2.5 mg tablet^Take 1 tablet by mouth once daily.^Disp: 90 tablet^Rfl: 3 finasteride (PROSCAR) 5 mg tablet^Take 1 tablet by mouth once daily.^Disp: 90 tablet^Rfl: 3 metoprolol succinate ER (TOPROL XL) 25 mg 24 hr tablet^Take 25 mg by mouth daily at bedtime.^Disp: ^Rfl: nitroglycerin sublingual (NITROQUICK) 0.4 mg SL tablet^dissolve 1 tablet under the tongue every 5 minutes if needed for ... (REFER TO PRESCRIPTION NOTES).^Disp: ^Rfl: aspirin, enteric coated (ASPIRIN, ENTERIC COATED) 81 mg EC tablet^Take 81 mg by mouth once daily.^Disp: ^Rfl: acetaminophen (TYLENOL EXTRA STRENGTH ORAL)^Take 1 tablet by mouth as needed.^Disp: ^Rfl: ketoconazole (NIZORAL) 2 % shampoo^WASH FACE AND EARS - AND LET SIT FOR 5 MINUTES as directed ALTERN... (REFER TO PRESCRIPTION NOTES).^Disp: ^Rfl: 0 fluticasone 50 mcg/actuation nasal spray^Use 2 Sprays in each nostril once daily as needed for Cold/Allergy Symptoms. Rinse mouth after use.^Disp: ^Rfl: VIT C/DL-E AC/LUT/COPPER/ZNOX (PRESERVISION ORAL)^Take 1 tablet by mouth two times a day.^Disp: ^Rfl: Sodium Chloride (OCEAN NASAL) 0.65 % NASAL [place]^Use 1 [place] in the nose as needed.^Disp: ^Rfl: 0 bicalutamide (CASODEX) 50 mg tablet^Take 1 tablet by mouth once daily.^Disp: 30 tablet^Rfl: 0 (Patient not taking: Reported on 09/01/2023) doxycycline hyclate (VIBRAMYCIN) 100 mg capsule^Take 100 mg by mouth two times a day.^Disp: ^Rfl: predniSONE (DELTASONE) 10 mg tablet^take 4 tablets by mouth once daily for 3 days then 3 tablets for ... (REFER TO PRESCRIPTION NOTES).^Disp: ^Rfl: (Patient not taking: Reported on 09/01/2023) traMADol (ULTRAM) 50 mg tablet^Take 1 tablet by mouth once daily as needed for pain for up to 180 days.^Disp: ^Rfl: (Patient not taking: Reported on 07/25/2023) atorvastatin (LIPITOR) 80 mg tablet^Take 0.5 tablets by mouth daily at bedtime. For cholesterol.^Disp: ^Rfl: (Patient not taking: Reported on 07/25/2023) lidocaine (LIDODERM) 5 %^Apply 1 Patch as directed every 24 hours. Remove old patch prior to placing new patch. Location: upper back^Disp: 30 Patch^Rfl: 2 (Patient not taking: Reported on 07/25/2023) REVIEW OF SYSTEMS: GENERAL: No fever, night sweats, weight loss or malaise. All other reviewed and negative other than HPI. PHYSICAL EXAMINATION: VITAL SIGNS: BP 103/52 Pulse 58 Temp 98 Wt 149 lb (67.6kg) SpO2 100% GENERAL APPEARANCE: Well appearing, in no acute distress, alert and oriented x3, well-hydrated, well nourished. I spent a total of 40 minutes on the date of the service which included preparing to see the patient, [id number] patient care, completing clinical documentation, obtaining and/or reviewing separately obtained history, counseling and educating the patient/family/caregiver, ordering medications, juliana ts, or procedures, independently interpreting results (not separately reported), communicating results to the patient/family/caregiver, and care coordination (not separately reported). Electronically Signed: Master Guerra MD September 01, 2023 8:43 AM [facility] Nurse Note* Juliet Torres LPN - 09/01/2023 8:37 AM EDT 3 week OV, discuss recent scans and lab. Will start Lupron injections today. Juliet Torres LPN [facility]06-20-[facility] Nurse Note* Juliet Torres LPN - 09/01/2023 8:37 AM EDT 3 week OV, discuss recent scans and lab. Will start Lupron injections today. Juliet Torres LPN documented in [facility] encounterWay[facility]06-14-[facility]24 Telephone encounter Note * Telephone Encounter - Fernando Maher - 08/26/2023 12:37 PM EDT I reviewed the patient on the 1st-time treatment report. The patient does not have a cancer diagnosis or a chemo/radiation regimen. No further Financial Navigator intervention is needed at this time. [facility]06-14-2024 Miscellaneous Notes* Telephone Encounter - Fernando Maher - 08/26/2023 12:37 PM EDT I reviewed the patient on the 1st-time treatment report. The patient does not have a cancer diagnosis or a chemo/radiation regimen. No further Financial Navigator intervention is needed at this time. documented in this encounterWay[facility]06-10-[facility]24 Telephone encounter Note * Telephone Encounter - Hien Hampton - 08/22/2023 10:12 AM EDT Biopsy scheduled for 08/29. Hien Alcazar [facility]06-10-[facility] Miscellaneous Notes* Telephone Encounter - Hien Hampton - 08/22/2023 10:12 AM EDT Biopsy scheduled for 08/29. Hien Alcazar * Telephone Encounter - Dianne Monzon - 08/16/2023 10:18 AM EDT Spouse returned call and requested date for [place]. Secure chat sent. * Telephone Encounter - Ashlyn Gonzales - 08/16/2023 8:31 AM EDT Left message for patient/spouse to return all. When they call, please advise that first available bone biopsy in [place] isn't until 09/06. Please ask if they would be willing to go to [place] to have the bone biopsy done sooner. If so, please update the request in the [facility] Secure Chat with the IR Schedulers to obtain a sooner bone biopsy in [place]. * Telephone Encounter - Ashlyn Gonzales - 07/29/2023 4:21 PM EDT Follow-up disposition: Return in about 4 weeks (around 08/26/2023). Check out comments: -Schedule Bone biopsy -3-4 week follow up with Dr Guerra or RADIOLOGY ASSISTANT to start lupron that day and Labs (CBC CMP Testosterone and PSA) - scheduled PET-Prostate - scheduled -Consult to genetics - scheduled Re; Bone Biopsy - This PSS reached out to IR schedulers and they sent it to the radiologist for approval. Radiologist needs more imaging and will use the scheduled PET CT to determine if IR Bone Biopsy is to be done. Spoke with patient's spouse and advised above. She stated understanding. Ashlyn Gonzales documented in [facility] encounterWay[facility]06-08-[facility] History of Present illness Narrative* Mariano Ocampo MD - 08/20/2023 6:22 AM EDT This note was created using [employer]. Subjective Patient presents with: Recheck The Electronic Medical Record (EMR) system was down during this encounter. Everton Pardo is a 87 year old male was here with spouse. He was now diagnosed with metastatic prostate cancer, and started on Casodex. He was scheduled for bone biopsy. Eventual transition to Lupron injections were planned. [facility] and was given furosemide for presumably mild CHF. His CXR showed resolution of the left sided effusion and improvement in atelectasis. He stillhad residual cough, but this was much better. Review of Systems Constitutional: Positive for appetite change and unexpected weight change. Negative for fatigue andfever. HENT: Negative. Respiratory: Positive for cough and wheezing. Negative for shortness of breath. Cardiovascular: Negative for chest pain, palpitations and leg swelling. Gastrointestinal: Negative for abdominal pain. Genitourinary: Negative for difficulty urinating. ACTIVE PROBLEM LIST Bph With Obstruction/Lower Urinary Tract Symptoms Gout, Unspecified Actinic Keratosis (Premalignant AK) Allergic Rhinitis Hearing Loss of Both Ears Hyperlipidemia Ddd (Degenerative Disc Disease), Lumbar Gerd (Gastroesophageal Reflux Disease) Sleep Apnea, Obstructive Abnormal Lung Sounds Essential Hypertension Impaired Fasting Blood Sugar Nonrheumatic Aortic Valve Stenosis Atherosclerosis of Coronary Artery Nodule of Lower Lobe of Right Lung Cervical Pain Calculus of Gallbladder Without Cholecystitis Without Obstruction Prostate Cancer (Hcc) Current Outpatient Medications Medication Sig bicalutamide (CASODEX) 50 mg tablet Take 1 tablet by mouth once daily. doxycycline hyclate (VIBRAMYCIN) 100 mg capsule Take 100 mg by mouth two times a day. oxyCODONE-acetaminophen (PERCOCET) 5-325 mg tablet Take 1 tablet by mouth every 4 hours as needed. predniSONE (DELTASONE) 10 mg tablet take 4 tablets by mouth once daily for 3 days then 3 tablets for ... (REFER TO PRESCRIPTION NOTES). folic acid/multivit-min/lutein (CENTRUM SILVER ORAL) Take 1 tablet by mouth once daily. traMADol (ULTRAM) 50 mg tablet Take 1 tablet by mouth once daily as needed for pain for up to 180 days. (Patient not taking: Reported on 07/25/2023) loratadine (CLARITIN) 10 mg tablet Take 1 tablet by mouth once daily. clopidogrel (PLAVIX) 75 mg tablet Take 1 tablet by mouth once daily. famotidine (PEPCID) 20 mg tablet Take 1 tablet by mouth every afternoon. atorvastatin (LIPITOR) 80 mg tablet Take 0.5 tablets by mouth daily at bedtime. For cholesterol. (Patient not taking: Reported on 07/25/2023) amLODIPine (NORVASC) 2.5 mg tablet Take 1 tablet by mouth once daily. finasteride (PROSCAR) 5 mg tablet Take 1 tablet by mouth once daily. lidocaine (LIDODERM) 5 % Apply 1 Patch as directed every 24 hours. Remove old patch prior to placing new patch. Location: upper back (Patient not taking: Reported on 07/25/2023) metoprolol succinate ER (TOPROL XL) 25 mg 24 hr tablet Take 25 mg by mouth daily at bedtime. nitroglycerin sublingual (NITROQUICK) 0.4 mg SL tablet dissolve 1 tablet under the tongue every 5 minutes if needed for ... (REFER TO PRESCRIPTION NOTES). aspirin, enteric coated (ASPIRIN, ENTERIC COATED) 81 mg EC tablet Take 81 mg by mouth once daily. acetaminophen (TYLENOL EXTRA [...] VIT C/DL-E AC/LUT/COPPER/ZNOX (PRESERVISION ORAL) Take 1 tablet by mouth two times a day. Sodium Chloride (OCEAN NASAL) 0.65 % NASAL [place] Use 1 [place] in the nose as needed. No current facility-administered medications for this visit. Objective BP 112/58 Pulse (!) 56 Resp 16 Wt 66.7 kg (147 lb) SpO2 98% BMI 22.62 kg/m Physical Exam Constitutional: General: He is not in acute distress. Appearance: He is not ill-appearing. HENT: Head: Normocephalic. Nose: Nose normal. Mouth/Throat: Mouth: Mucous membranes are moist. Pharynx: Oropharynx is clear. Cardiovascular: Rate and Rhythm: Bradycardia present. Pulmonary: Effort: No respiratory distress. Breath sounds: Examination of the right-lower field reveals rales. Examination of the left-lower field reveals rales. Wheezing and rales present. Abdominal: Palpations: Abdomen is soft. Tenderness: There is no abdominal tenderness. Musculoskeletal: Right lower leg: No edema. Left lower leg: No edema. Neurological: Mental Status: He is alert. Assessment and Plan 1. Bronchospasm - ICD9: 519.11, ICD10: J98.01 (primary diagnosis) - ALBUTEROL SULFATE HFA 90 MCG/ACTUATION AEROSOL INHALER - INHALATIONAL SPACING DEVICE 2. Abnormal lung sounds - ICD9: 786.7, ICD10: R09.89 Chronic, probably ILD 3. Prostate cancer (HCC) - ICD9: 185, ICD10: C61 Metastatic. Mariano Ocampo MD documented in this encounterWay[facility]06-04-2024 Telephone encounter Note * Telephone Encounter - Dianne Monzon - 08/16/2023 10:18 AM EDT Spouse returned call and requested date for [place]. Secure chat sent. [facility] Work Phone: [phone] [phone] Telephone encounter Note* Telephone Encounter - Ashlyn Gonzales - 08/16/2023 8:31 AM EDT Left message for patient/spouse to return all. When they call, please advise that first available bone biopsy in [place] isn't until 09/06. Please ask if they would be willing to go to [place] to have the bone biopsy done sooner. If so, please update the request in the [facility] Secure Chat with the IR Schedulers to obtain a sooner bone biopsy in [place]. [facility]06-03-2024 NoteHNO ID: [id number] Author: BARRY SMALLS RT(R) Service: ? Author Type: Technologist Type: Progress Notes Filed: 08/15/2023 11:45 Note Text: RADIOLOGY SERVICE PROGRESS NOTE SERVICE DATE: 08/15/2023 SERVICE TIME: 11:43 AM PATIENT IDENTITY VERIFICATION COMPLETED USING TWO (2) STANDARD IDENTIFIERS: Name and Date of confirmed by patient verbally FALL SCREENING: Has the patient had 2 falls in the last year or 1 fall with injury or currently using an Ambulatory Assistive Device (Walker, Cane, Wheelchair, Crutches, etc.)? No PATIENT GENDER DATA: .male ALLERGIES: NA MEDICATIONS REVIEWED: Not applicable PATIENT RELEVANT IMPLANT DATA REVIEWED: Not Applicable PATIENT PRESENTS WITH AN IMPLANTABLE OR ATTACHED SALES PROFESSIONAL: NA CREATININE: Creatinine Date Value Ref Range Status 07/29/2023 0.91 0.73 - 1.22 mg/dL Final 07/27/2023 1.02 0.73 - 1.22 mg/dL Final 05/16/2023 1.08 0.73 - 1.22 mg/dL Final Estimated Glomerular Filtration Rate Date Value Ref Range Status 07/29/2023 83 >=60 mL/min/1.73m? Final Comment: Estimated Glomerular Filtration Rate (eGFR) is calculated using the 2020 CKD-EPI creatinine equation. This equation utilizes serum creatinine, sex, and age as parameters. The creatinine assay has traceable calibration to isotope dilution-mass spectrometry. Refer to KDIGO guidelines for clinical interpretation. In patients with unstable renal function, e.g. those with acute kidney injury, the eGFR may not accurately reflect actual GFR. eGFR- Date Value Ref Range Status 01/12/2021 >60 Final P.O.C.T. RESULTS: N/A August 15, [address] PERFORMED: No IV SITE: Ambulatory: A peripheral IV was started in the Right antecubital site with a Angio cath: 22 gauge. POST EXAM PIV STATUS: Discontinued PROCEDURE TYPE: NM INJECT: PET/CT HEAD, NECK, BODY SCAN. 9.1 mCi [id number]. No other medications given.. ADMINISTRATION TIME: 1130 PATIENT DISCHARGED TO: Ambulatory patient, left [place] department area. A Diagnostic radioactive procedure has taken place, with no further precautions necessary other than routine body substance precautions. More information regarding radiation safety can be found using this link: [email or web address] SIGNATURE: RT Gail(R) PATIENT NAME: Everton Pardo DATE: August 15, 2023 TIME: 11:43 AM PAGER/CONTACT #:[facility]06-03-2024 History of Present illness Narrative* Barry Smalls RT(R) - 08/15/2023 11:43 AM EDT RADIOLOGY SERVICE PROGRESS NOTE SERVICE DATE: 08/15/2023 SERVICE TIME: 11:43 AM PATIENT IDENTITY VERIFICATION COMPLETED USING TWO (2) STANDARD IDENTIFIERS: Name and Date of confirmed by patient verbally FALL SCREENING: Has the patient had 2 falls in the last year or 1 fall with injury or currently using an Ambulatory Assistive Device (Walker, Cane, Wheelchair, Crutches, etc.)? No PATIENT GENDER DATA: .male ALLERGIES: NA MEDICATIONS REVIEWED: Not applicable PATIENT RELEVANT IMPLANT DATA REVIEWED: Not Applicable PATIENT PRESENTS WITH AN IMPLANTABLE OR ATTACHED SALES PROFESSIONAL: NA CREATININE: Creatinine Date Value Ref Range Status 07/29/2023 0.91 0.73 - 1.22 mg/dL Final 07/27/2023 1.02 0.73 - 1.22 mg/dL Final 05/16/2023 1.08 0.73 - 1.22 mg/dL Final Estimated Glomerular Filtration Rate Date Value Ref Range Status 07/29/2023 83 >=60 mL/min/1.73m Final Comment: Estimated Glomerular Filtration Rate (eGFR) is calculated using the 2020 CKD-EPI creatinine equation. This equation utilizes serum creatinine, sex, and age as parameters. The creatinine assay has traceable calibration to isotope dilution- mass spectrometry. Refer to KDIGO guidelines for clinical interpretation. In patients with unstable renal function, e.g. those with acute kidney injury, the eGFRmay not accurately reflect actual GFR. eGFR- Date Value Ref Range Status 01/12/2021 >60 Final P.O.C.T. RESULTS: N/A August 15, [address] PERFORMED: No IV SITE: Ambulatory: A peripheral IV was started in the Right antecubital site with a Angio cath: 22 gauge. POST EXAM PIV STATUS: Discontinued PROCEDURE TYPE: NM INJECT: PET/CT HEAD, NECK, BODY SCAN. 9.1 mCi [id number]. No other medications given.. ADMINISTRATION TIME: 1130 PATIENT DISCHARGED TO: Ambulatory patient, left [place] department area. A Diagnostic radioactive procedure has taken place, with no further precautions necessary other than routine body substance precautions. More information regarding radiation safety can be found usingthis link: [email or web address] SIGNATURE: RT Gail(R) PATIENT NAME: Everton Pardo DATE: August 15, 2023 TIME: 11:43 AM PAGER/CONTACT #: documented in [facility] encounterWay[facility]05-17-2024 Telephone encounter Note * Telephone Encounter - Ashlyn Gonzales - 07/29/2023 4:21 PM EDT Follow-up disposition: Return in about 4 weeks (around 08/26/2023). Check out comments: -Schedule Bone biopsy -3-4 week follow up with Dr Guerra or RADIOLOGY ASSISTANT to start lupron that day and Labs (CBC CMP Testosterone and PSA) - scheduled PET-Prostate - scheduled -Consult to genetics - scheduled Re; Bone Biopsy - This PSS reached out to IR schedulers and they sent it to the radiologist for approval. Radiologist needs more imaging and will use the scheduled PET CT to determine if IR Bone Biopsy is to be done. Spoke with patient's spouse and advised above. She stated understanding. Ashlyn Gonzales [facility]05-17-2024 History of Present illness Narrative* Iam Juarez MD - 07/29/2023 2:00 PM EDT CONSULT: Hematology and medical oncology SERVICE SERVICE DATE: 07/29/2023 SERVICE TIME: 2:20 PM REASON FOR CONSULT: Prostate cancer bone lesions REQUESTING PHYSICIAN: PRIMARY CARE PHYSICIAN: Mariano Ocampo MD Consultation requested by Dr. Ocampo for an opinion regarding . My final recommendations will becommunicated back to the requesting physician by way of shared Medical record or letter to requesting physician via [place] mail. Subjective Mr. Pardo is a 87 year old male with PMH,MARISOL Presented with generalized bone pain. His PSA is above 5000 CT abdomen and pelvis reported urinary bladder wall thickening, extensive skeletal lesions consistent with bone metastasis, 4.2 cm renal lesion indeterminant complex cyst versus neoplasm Patient was referred to oncology regarding bone lesions. Patient denies any complaint except chronic lower back pain and bony ache off-and-on. 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 Mccormack, immunotherapy. 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 I'm not using it anymore. Snoring PAST SURGICAL HISTORY Procedure Laterality Date APPENDECTOMY 194 CC CORONARY STENT 09/20/2022 PCI D1; RUPESH pLAD, OM1, and rPDA COLONOSCOPY 08/21/2018 COLONOSCOPY FLX DX W/COLLJ SPEC WHEN PFRMD 06/28/2001 Colonoscopy ESOPHAGOGASTRODUODENOSCOPY TRANSORAL DIAGNOSTIC 08/02/2001 EGD ESOPHAGOGASTRODUODENOSCOPY TRANSORAL DIAGNOSTIC 12/15/2015 EGD LEFT HEART CATH,PERCUTANEOUS 09/13/2022 PAST SURGICAL HISTORY OF 2010 cysts, skin lesions, basal cell cancer PROSTATE BIOPSY 08/2012 FAMILY HISTORY Problem Relation Age of Onset Cancer Mother Pt states does not remember type Heart Father [place] age 60s GI Sister gastrectomy Cancer Sister stomach cancer other (fibromyalgia) Sister Prostate Cancer Brother No Known Problems Other Lung disease Social History Tobacco Use Smoking status: Never Smokeless tobacco: Never Tobacco comments: No smoking in childhood home. Substance Use Topics Alcohol use: No Drug use: No (Not in a hospital admission) Current Outpatient Medications Medication Sig doxycycline hyclate (VIBRAMYCIN) 100 mg capsule Take 100 mg by mouth two times a day. oxyCODONE-acetaminophen (PERCOCET) 5-325 mg tablet Take 1 tablet by mouth every 4 hours as needed. predniSONE (DELTASONE) 10 mg tablet take 4 tablets by mouth once daily for 3 days then 3 tablets for ... (REFER TO PRESCRIPTION NOTES). folic acid/multivit-min/lutein (CENTRUM SILVER ORAL) Take 1 tablet by mouth once daily. loratadine (CLARITIN) 10 mg tablet Take 1 tablet by mouth once daily. clopidogrel (PLAVIX) 75 mg tablet Take 1 tablet by mouth once daily. famotidine (PEPCID) 20 mg tablet Take 1 tablet by mouth every afternoon. amLODIPine (NORVASC) 2.5 mg tablet Take 1 tablet by mouth once daily. finasteride (PROSCAR) 5 mg tablet Take 1 tablet by mouth once daily. metoprolol succinate ER (TOPROL XL) 25 mg 24 hr tablet Take 25 mg by mouth daily at bedtime. nitroglycerin sublingual (NITROQUICK) 0.4 mg SL tablet dissolve 1 tablet under the tongue every 5 minutes if needed for ... (REFER TO PRESCRIPTION NOTES). aspirin, enteric coated (ASPIRIN, ENTERIC COATED) 81 mg EC tablet Take 81 mg by mouth once daily. acetaminophen (TYLENOL EXTRA [...] VIT C/DL-E AC/LUT/COPPER/ZNOX (PRESERVISION ORAL) Take 1 tablet by mouth two times a day. Sodium Chloride (OCEAN NASAL) 0.65 % NASAL [place] Use 1 [place] in the nose as needed. traMADol (ULTRAM) 50 mg tablet Take 1 tablet by mouth once daily as needed for pain for up to 180 days. (Patient not taking: Reported on 07/25/2023) atorvastatin (LIPITOR) 80 mg tablet Take 0.5 tablets by mouth daily at bedtime. For cholesterol. (Patient not taking: Reported on 07/25/2023) lidocaine (LIDODERM) 5 % Apply 1 Patch as directed every 24 hours. Remove old patch prior to placing new patch. Location: upper back (Patient not taking: Reported on 07/25/2023) No current facility-administered medications for this visit. Allergies As of Date: 07/29/2023 Allergen Noted Reaction ZETIA [EZETIMIBE] 04/07/2023 Other: See Comments GABAPENTIN 02/25/2015 Shortness of Breath and Other: See Comments MOBIC [MELOXICAM] 06/28/2006 GI Upset SULFA (SULFONAMIDE ANTIBIOTICS) 11/29/2005 Fully Assessed 07/29/2023 COMPLETE REVIEW OF SYSTEMS: Patient denies any chest pain, shortness of breath, cough, nausea, vomiting or abdominal pain Objective PHYSICAL EXAM: Physical Exam Performed: BP 107/62 Pulse 78 Temp (Src) 97.5 (Temporal) Wt 151 lb 8 oz (68.7kg) SpO2 99% General: NAD, ECOG PS: 2 11 HEENT: PERRL, EOMI, no Jaundice, No paleness. buccal mucosa moist . Throat: no thrush Neck: No masses were felt Lymph system: no LAP in the neck, submandibular, occipital, supraclavicular areas. NO LAP in the Auxiliary area BL. Heart: S1, S2, RRR Lung: CTA (BL), no wheezing or crackles Abd: No tenderness, or distension. Soft, and BS +. No hepatosplenomegaly. Extremities: No pitting edema, or cyanosis DATA: Diagnostic tests reviewed for today's visit: Most recent labs and imaging results. Impression/Recommendations Stage IV prostate cancer since patient has PSA of over 5000 with bone metastasis. Even without biopsy this patient has stage IV prostate cancer Obtained PET PSMA Start Casodex 50 mg daily for only 1 month as a bridge for Lupron In 3 weeks we will start Lupron 22.5 mg IM every 3 months Once biopsy prove the prostate cancer I would start apalutamide The risk, benefits, side effects, alternatives, rationale and personal involvement with above treatment were explained to the patient In details, who verbalized Understanding and agrees to proceed. 2. I had a long discussion with patient, his regarding diagnosis, prognosis, natural history of disease uncurable disease and treatment options He will come back in 3 to [address] Guerra and start Lupron and send a prescription for apalutamide. 3. Bone metastasis consider bone modifying agent either Zometa or Xgeva after dental clearance Monitoring C, CMP, PSA and testosterone Patient verbalized understanding and agreed with above plan I spent a total of 60 minutes on the date of the service which includedpreparing to see the patient, [id number] patient care, completing clinical documentation, obtaining and/or reviewing separately obtained history, performing a medically appropriate examination, counseling and educating the patient/family/caregiver, ordering medications, tests, or procedures, communicating with other HCPs (not separately reported), independently interpreting results (not separately reported) and communicating results to the patient/family/caregiver SIGNATURE: Iam Juarez MD PATIENT NAME: Everton Pardo DATE: July 29, 2023 TIME: 2:20 PM PAGER: [phone] CC: Mariano Ocampo MD [facility] Telephone encounter Note * Telephone Encounter - Dianne Monzon - 07/25/2023 4:14 PM EDT Scheduled with spouse [facility] Work Phone: 1(273) 973-113605-13-2024 Miscellaneous Notes* Telephone Encounter - Dianne Monzon - 07/25/2023 4:14 PM EDT Scheduled with spouse * Telephone Encounter - Mira Polanco - 07/25/2023 3:26 PM EDT Pt was in today for an appointment with PCP. Let them know that we have reached out to them. Confirmed phone number with patient and . * Telephone Encounter - Ketty Lizarraga - 07/25/2023 3:01 PM EDT I called and left a message for Everton or spouse Silke to call back to schedule new patient visit with hopefully for this week Tuesday07/29/23, if appointment is still available RADIOLOGY ASSISTANT/BONE LESIONS/DR.JUSTIN HERRERA* Ketty Francis * Telephone Encounter - Ketty Lizarraga - 07/25/2023 2:25 PM EDT Scheduling on hold until we receive go ahead from Yudelka nurse dock manager, Per patient's sheet after review requested to be schedule this week Tuesday with Dr.Haddad Ketty Francis * Telephone Encounter - Katheryn Faith LPN - 07/22/2023 11:56 AM EDT Records from [facility] printed. New patient chart assembled and will be given to Dr. Delgado to review. Katheryn Faith LPN * Telephone Encounter - Ilsa Pope - 07/22/2023 9:14 AM EDT Pt referred by [facility] at recent ER Visit on 07/21/23 for elevated inflammatory markers and lesions on bone. documented in [facility] Telephone encounter Note * Telephone Encounter - Mira Polanco - 07/25/2023 3:26 PM EDT Pt was in today for an appointment with PCP. Let them know that we have reached out to them. Confirmed phone number with patient and . [facility]05-13-2024 Telephone encounter Note* Telephone Encounter - Ketty Lizarraga - 07/25/2023 3:01 PM EDT I called and left a message for Everton or spouse Silke to call back to schedule new patient visit with hopefully for this week Tuesday07/29/23, if appointment is still available RADIOLOGY ASSISTANT/BONE LESIONS/DR.JUSTIN HERRERA* Ketty Colmenares [facility]05-13-[facility]24 History of Present illness Narrative* Mariano Ocampo MD - 07/25/2023 2:37 PM EDT This note was created using [employer]. Subjective Everton Pardo is a 87 year old male here with his . He had diffuse pain for several days and ended up seeking care at the ER. His photo journalist held his statin with no relief. Tramadol did not help. He was seen in the ER 07/22/23 where work up showed high CRP, high WBC, anemia, small left effusionand atelectasis. CT of abdomen and pelvis showed urinary bladder wall thickening, enlarged prostate, extensive skeletal lesions, indeterminate 2 cm left renal lesion, and left lower lobe pneumonia. He was given an injection that made him feel better. He was discharged on prednisone taper, doxycycline, and Percocet as needed. Review of Systems Constitutional: Positive for appetite change, diaphoresis, fatigue and unexpected weight change. Negative for chills and fever. HENT: Positive for postnasal drip and trouble swallowing. Respiratory: Negative for cough, shortness of breath and wheezing. Cardiovascular: Positive for leg swelling. Negative for chest pain and palpitations. Gastrointestinal: Negative for abdominal pain, diarrhea, nausea and vomiting. Genitourinary: Negative for difficulty urinating and dysuria. Musculoskeletal: Positive for arthralgias, back pain and myalgias. Neurological: Negative for dizziness and headaches. ACTIVE PROBLEM LIST Bph With Obstruction/Lower Urinary Tract Symptoms Gout, Unspecified Actinic Keratosis (Premalignant AK) Allergic Rhinitis Hearing Loss of Both Ears Hyperlipidemia Ddd (Degenerative Disc Disease), Lumbar Gerd (Gastroesophageal Reflux Disease) Sleep Apnea, Obstructive Abnormal Lung Sounds Essential Hypertension Impaired Fasting Blood Sugar Nonrheumatic Aortic Valve Stenosis Atherosclerosis of Coronary Artery Nodule of Lower Lobe of Right Lung Cervical Pain Calculus of Gallbladder Without Cholecystitis Without Obstruction Current Outpatient Medications Medication Sig doxycycline hyclate (VIBRAMYCIN) 100 mg capsule Take 100 mg by mouth two times a day. oxyCODONE-acetaminophen (PERCOCET) 5-325 mg tablet Take 1 tablet by mouth. predniSONE (DELTASONE) 10 mg tablet take 4 tablets by mouth once daily for 3 days then 3 tablets for ... (REFER TO PRESCRIPTION NOTES). folic acid/multivit-min/lutein (CENTRUM SILVER ORAL) Take 1 tablet by mouth once daily. loratadine (CLARITIN) 10 mg tablet Take 1 tablet by mouth once daily. clopidogrel (PLAVIX) 75 mg tablet Take 1 tablet by mouth once daily. famotidine (PEPCID) 20 mg tablet Take 1 tablet by mouth every afternoon. amLODIPine (NORVASC) 2.5 mg tablet Take 1 tablet by mouth once daily. finasteride (PROSCAR) 5 mg tablet Take 1 tablet by mouth once daily. metoprolol succinate ER (TOPROL XL) 25 mg 24 hr tablet Take 25 mg by mouth daily at bedtime. nitroglycerin sublingual (NITROQUICK) 0.4 mg SL tablet dissolve 1 tablet under the tongue every 5 minutes if needed for ... (REFER TO PRESCRIPTION NOTES). aspirin, enteric coated (ASPIRIN, ENTERIC COATED) 81 mg EC tablet Take 81 mg by mouth. acetaminophen (TYLENOL EXTRA STRENGTH ORAL) Take 1 [...] Sodium Chloride (OCEAN NASAL) 0.65 % NASAL Mullen traMADol (ULTRAM) 50 mg tablet Take 1 tablet by mouth once daily as needed for pain for up to 180 days. (Patient not taking: Reported on 07/25/2023) atorvastatin (LIPITOR) 80 mg tablet Take 0.5 tablets by mouth daily at bedtime. For cholesterol. (Patient not taking: Reported on 07/25/2023) lidocaine (LIDODERM) 5 % Apply 1 Patch as directed every 24 hours. Remove old patch prior to placing new patch. Location: upper back (Patient not taking: Reported on 07/25/2023) No current facility-administered medications for this visit. Objective BP 102/60 (BP Site: Left Arm, BP Position: Sitting, BP Cuff Size: Large Adult) Pulse (!) 56 Resp 18 Wt 68 kg (150 lb) BMI 23.08 kg/m Physical Exam Constitutional: General: He is not in acute distress. Appearance: He is not diaphoretic. HENT: Head: Normocephalic. Eyes: General: No scleral icterus. Conjunctiva/sclera: Conjunctivae normal. Cardiovascular: Rate and Rhythm: Regular rhythm. Bradycardia present. Heart sounds: No murmur heard. No gallop. Pulmonary: Effort: No respiratory distress. Breath sounds: Examination of the right-lower field reveals rales. Examination of the left-lower field reveals rales. Rales present. No wheezing. Abdominal: Palpations: Abdomen is soft. There is no mass. Tenderness: There is no abdominal tenderness. Musculoskeletal: General: No tenderness. Right lower leg: No edema. Left lower leg: No edema. Lymphadenopathy: Cervical: No cervical adenopathy. Neurological: General: No focal deficit present. Mental Status: He is alert. Gait: Gait normal. Assessment and Plan 1. Lytic bone lesions on xray - ICD9: 733.90, ICD10: M89.9 (primary diagnosis) - CONSULT TO ONCOLOGY - I will reach out to oncology about additional labs. 2. Pneumonitis - ICD9: 486, ICD10: J98.4 - Finish antibiotic. - CONSULT TO ONCOLOGY 3. Myalgias - ICD9: 729.1, ICD10: M79.10 - Improved. Statin held by cardiology. Continue to hold. - CONSULT TO ONCOLOGY 4. Anemia, unspecified type - ICD9: 285.9, ICD10: D64.9 New concern. - CONSULT TO ONCOLOGY 5. Leukocytosis, unspecified type - ICD9: 288.60, ICD10: D72.829 New concern. - CONSULT TO ONCOLOGY Mariano Ocampo MD Tests discussed with oncology. 1. Lytic bone lesions on xray - ICD9: 733.90, ICD10: M89.9 (primary diagnosis) - CONSULT TO ONCOLOGY - COMPREHENSIVE METABOLIC PANEL - IMMUNOFIXATION SCREEN, SERUM - PROTEIN ELECTROPHORESIS SERUM W/INTERP - CT CHEST WO IVCON 2. Pneumonitis - ICD9: 486, ICD10: J98.4 - CONSULT TO ONCOLOGY - CT CHEST WO IVCON 3. Myalgias - ICD9: 729.1, ICD10: M79.10 - CONSULT TO ONCOLOGY 4. Anemia, unspecified type - ICD9: 285.9, ICD10: D64.9 - CONSULT TO ONCOLOGY - COMPLETE BLOOD COUNT AND DIFFERENTIAL 5. Leukocytosis, unspecified type - ICD9: 288.60, ICD10: D72.829 - CONSULT TO ONCOLOGY - COMPLETE BLOOD COUNT AND DIFFERENTIAL 6. BPH with obstruction/lower urinary tract symptoms - ICD9: 600.01, 599.69, ICD10: N40.1, N13.8 - PSA/PROSTATE SPECIFIC ANTIGEN SCREENING Mariano Ocampo MD documented in [facility] encounterWay[facility]05-13-[facility] Telephone encounter Note * Telephone Encounter - Ketty Lizarraga - 07/25/2023 2:25 PM EDT Scheduling on hold until we receive go ahead from Yudelka nurse dock manager, Per patient's sheet after review requested to be schedule this week Tuesday with Dr.Haddad Ketty Francis [facility]05-10-2024 Telephone encounter Note* Telephone Encounter - Katheryn Faith LPN - 07/22/2023 11:56 AM EDT Records from [facility] printed. New patient chart assembled and will be given to Dr. Delgado to review. Katheryn Faith LPN [facility]05-10-2024 Telephone encounter Note* Telephone Encounter - Ilsa Pope - 07/22/2023 9:14 AM EDT Pt referred by [facility] at recent ER Visit on 07/21/23 for elevated inflammatory markers and lesions on bone. [facility] Work Phone: 1(575) 569-757004-19-2024 History of Present illness Narrative* Karina De La Torre RN - 07/01/2023 4:01 PM EDT CC [facility] NURSE - CHART REVIEW Provider [facility] Action Chart review 12/06/22 [facility] ED at [place] presents with chest pain and back pain, even between his shoulder blades and in his low back that he has had for days to weeks. He took Tylenol with mild relief of his symptoms. EKG showed bradycardia and no ST changes. CTA of the chest, abdomen, and pelvis which is negative for dissection. Incidental finding of 3.8 mm noncalcified nodule in the peripheral aspect of the right lobe. A 12 month follow-up examination is recommended.DC home with PCP f/u appt completed 12/08/22. 01/03/23 [facility] ED for report of dyspnea on exertion and chest discomfort. No ED narrative notes in [facility] Care Everywhere. Pt identified by name and . Reason for Review: Payor request Patient Attributed To: DERREK Payer: [employer] Chart Review For: Utilization: ED Total Patient High CostTotal Patient High Cost {HIGH COST:[id number]) Quality measure review Payor request for assistance Action Taken: Data submitted to payor Karina De La Torre RN July 01, 2023 4:08 PM documented in this encounterWayne Hospital03-07-2024 History of Present illness Narrative* Mariano Ocampo MD - 05/19/2023 10:39 AM EST This note was created using [employer]. Subjective Everton Pardo is a 87 year old male here with . His joint pains were much better. He has not taken tramadol for more than one month. His lipids were well controlled, and he will discuss with his photo journalist ([facility]) continuation, adjustment, or substitution of atorvastatin, due to concernsabout muscle weakness and pain. His sinobronchitis progressed, so he saw Dr. Rupinder Mccormack who prescribed him Cefdinir. Since his coronary stenting and medication changes, and with limiting salt, his appetite was less. Plus he changed his diet to lose weight. There was now a question of progressive weight loss. His cancer screening was current. Review of Systems Constitutional: Positive for appetite change and unexpected weight change. Negative for activity change and fatigue. HENT: Negative for congestion, postnasal drip and sore throat. Respiratory: Negative for cough, chest tightness and shortness of breath. Cardiovascular: Negative for chest pain, palpitations and leg swelling. Gastrointestinal: Negative for abdominal pain, blood in stool, constipation, diarrhea, nausea and vomiting. Genitourinary: Positive for decreased urine volume. Negative for dysuria and hematuria. Musculoskeletal: Positive for back pain. Skin: Negative. Neurological: Negative for dizziness and headaches. Hematological: Negative for adenopathy. ACTIVE PROBLEM LIST Bph With Obstruction/Lower Urinary Tract Symptoms Gout, Unspecified Actinic Keratosis (Premalignant AK) Allergic Rhinitis Hearing Loss of Both Ears Hyperlipidemia Ddd (Degenerative Disc Disease), Lumbar Gerd (Gastroesophageal Reflux Disease) Sleep Apnea, Obstructive Abnormal Lung Sounds Essential Hypertension Impaired Fasting Blood Sugar Nonrheumatic Aortic Valve Stenosis Atherosclerosis of Coronary Artery Nodule of Lower Lobe of Right Lung Cervical Pain Calculus of Gallbladder Without Cholecystitis Without Obstruction Current Outpatient Medications Medication Sig loratadine (CLARITIN) 10 mg tablet Take 1 tablet by mouth once daily. clopidogrel (PLAVIX) 75 mg tablet Take 1 tablet by mouth once daily. famotidine (PEPCID) 20 mg tablet Take 1 tablet by mouth every afternoon. atorvastatin (LIPITOR) 80 mg tablet Take 0.5 tablets by mouth daily at bedtime. For cholesterol. amLODIPine (NORVASC) 2.5 mg tablet Take 1 tablet by mouth once daily. finasteride (PROSCAR) 5 mg tablet Take 1 tablet by mouth once daily. lidocaine (LIDODERM) 5 % Apply 1 Patch as directed every 24 hours. Remove old patch prior to placing new patch. Location: upper back metoprolol succinate ER (TOPROL XL) 25 mg 24 hr tablet Take 12.5 mg by mouth daily at bedtime. nitroglycerin sublingual (NITROQUICK) 0.4 mg SL tablet dissolve 1 tablet under the tongue every 5 minutes if needed for ... (REFER TO PRESCRIPTION NOTES). aspirin, enteric coated (ASPIRIN, ENTERIC COATED) 81 mg EC tablet Take 81 mg by mouth. acetaminophen (TYLENOL EXTRA STRENGTH ORAL) Take 1 [...] Sodium Chloride (OCEAN NASAL) 0.65 % NASAL Mullen traMADol (ULTRAM) 50 mg tablet Take 1 tablet by mouth once daily as needed for pain for up to 180 days. No current facility-administered medications for this visit. Objective BP 100/54 (BP Site: Left Arm, BP Position: Sitting, BP Cuff Size: Large Adult) Pulse (!) 56 Temp 36.1 C (96.9 F) (Temporal) Resp 16 Wt 67.6 kg (149 lb) BMI 22.92 kg/m Physical Exam Constitutional: Appearance: He is not ill-appearing. Eyes: General: No scleral icterus. Conjunctiva/sclera: Conjunctivae normal. Neck: Thyroid: No thyromegaly. Cardiovascular: Rate and Rhythm: Regular rhythm. Bradycardia present. Heart sounds: No murmur heard. No gallop. Pulmonary: Effort: No respiratory distress. Breath sounds: Examination of the right-lower field reveals rales. Examination of the left-lower field reveals rales. Rales present. No wheezing or rhonchi. Abdominal: General: Bowel sounds are normal. There is no distension. Palpations: Abdomen is soft. There is no mass. Tenderness: There is no abdominal tenderness. Hernia: No hernia is present. Musculoskeletal: General: No tenderness. Right lower leg: No edema. Left lower leg: No edema. Lymphadenopathy: Cervical: No cervical adenopathy. Lower Body: No right inguinal adenopathy. No left inguinal adenopathy. Neurological: General: No focal deficit present. Mental Status: He is alert. Component Latest Ref Rng & Units 05/16/2023 Protein, Total 6.3 - 8.0 g/dL 6.5 Albumin 3.9 - 4.9 g/dL 3.7 (L) Calcium 8.5 - 10.2 mg/dL 9.9 Bilirubin, Total 0.2 - 1.3 mg/dL 0.5 Alkaline Phosphatase 38 - 113 U/L 214 (H) AST 14 - 40 U/L 47 (H) ALT 10 - 54 U/L 47 Glucose 74 - 99 mg/dL 96 BUN 9 - 24 mg/dL 22 Creatinine 0.73 - 1.22 mg/dL 1.08 Sodium 136 - 144 mmol/L 143 Potassium 3.7 - 5.1 mmol/L 4.5 Chloride 97 - 105 mmol/L 105 CO2 22 - 30 mmol/L 27 Anion Gap 9 - 18 mmol/L 11 eGFR >=60 mL/min/1.73m 67 WBC 3.70 - 11.00 k/uL 10.12 RBC 4.20 - 6.00 m/uL 4.46 Hemoglobin 13.0 - 17.0 g/dL 13.6 Hematocrit 39.0 - 51.0 % 42.2 MCV 80.0 - 100.0 fL 94.6 MCH 26.0 - 34.0 pg 30.5 MCHC 30.5 - 36.0 g/dL 32.2 RDW-CV 11.5 - 15.0 % 14.1 Platelet Count 150 - 400 k/uL 288 MPV 9.0 - 12.7 fL 10.9 Absolute nRBC <0.01 k/uL <0.01 Cholesterol, Total <200 mg/dL 83 Triglyceride <150 mg/dL 92 HDL Cholesterol >39 mg/dL 24 (L) Non HDL Cholesterol <130 mg/dL 59 Fasting Time hrs 13 VLDL Cholesterol <30 mg/dL 18 TC:HDL Ratio <5.10 3.46 LDL Cholesterol <100 mg/dL 41 LDL:HDL Ratio <2.54 1.71 WSR 0 - 15 mm/hr 30 (H) CRP <0.9 mg/dL <0.3 Rheumatoid Factor <16 IU/mL 10 Bilirubin, Conjug <0.2 mg/dL <0.2 Assessment and Plan 1. Weight loss - ICD9: 783.21, ICD10: R63.4 (primary diagnosis) Monitor. CT chest/abdomen/pelvis in 11/2022 showed no findings of concern. 2. BPH with obstruction/lower urinary tract symptoms - ICD9: 600.01, 599.69, ICD10: N40.1, N13.8 The meaning of a false positive PSA and false negative PSA has been discussed, and the patient indicates their understanding of the limitations of this screening test. - PSA/PROSTSPECAG SCRN 3. Cervical pain - ICD9: 723.1, ICD10: M54.2 Improved, controlled. - TRAMADOL 50 MG TABLET 4. Essential hypertension - ICD9: 401.9, ICD10: I10 - Controlled - Continue current medications 5. Hyperlipidemia, unspecified hyperlipidemia type - ICD9: 272.4, ICD10: E78.5 - Controlled - Continue current medications - Counseled on healthy diet and regular exercise 6. DDD (degenerative disc disease), lumbar - ICD9: 722.52, ICD10: M51.36 Chronic low back pain - Controlled. - TRAMADOL 50 MG TABLET 7. Abnormal liver enzymes - ICD9: 790.5, ICD10: R74.8 Possibly statin related. Patient has asymptomatic cholelithiasis. Monitor. - COMP METABOLIC PANEL 8. Nodule of lower lobe of right lung - ICD9: 793.11, ICD10: R91.[address] 11/2023 Mariano Ocampo MD documented in this encounterWayne Hospital02-19-2024 History of Present illness Narrative* Mariano Ocampo MD - 05/02/2023 12:51 PM EST This note was created using [employer]. Subjective Everotn Pardo is a 87 year old male who presents with complaint of sinus symptoms, sinus headache, sneezing, rhinorrhea, post nasal drip, and cough- productive with small amount of clear sputum for a few days. He denies fever, ear pain, sore throat, dyspnea, wheezing, nausea, vomiting, diarrhea, and shortness of breath. Treatments tried include Acetaminophen and OTC cold medicine with partial relief of symptoms. He was going for some lab work for the heart group. There was discussion about changing his hypertension and cholesterol lowering medication, but he was not clear on the details. He had not been seenin cardiology office, just care planning by phone. Review of Systems Per HPI. ACTIVE PROBLEM LIST Bph With Obstruction/Lower Urinary Tract Symptoms Gout, Unspecified Actinic Keratosis (Premalignant AK) Allergic Rhinitis Hearing Loss of Both Ears Hyperlipidemia Ddd (Degenerative Disc Disease), Lumbar Gerd (Gastroesophageal Reflux Disease) Sleep Apnea, Obstructive Abnormal Lung Sounds Essential Hypertension Impaired Fasting Blood Sugar Nonrheumatic Aortic Valve Stenosis Atherosclerosis of Coronary Artery Nodule of Lower Lobe of Right Lung Cervical Pain Calculus of Gallbladder Without Cholecystitis Without Obstruction Current Outpatient Medications Medication Sig clopidogrel (PLAVIX) 75 mg tablet Take 1 tablet by mouth once daily. famotidine (PEPCID) 20 mg tablet Take 1 tablet by mouth every afternoon. atorvastatin (LIPITOR) 80 mg tablet Take 0.5 tablets by mouth daily at bedtime. For cholesterol. amLODIPine (NORVASC) 2.5 mg tablet Take 1 tablet by mouth once daily. finasteride (PROSCAR) 5 mg tablet Take 1 tablet by mouth once daily. metoprolol succinate ER (TOPROL XL) 25 mg 24 hr tablet Take 12.5 mg by mouth daily at bedtime. nitroglycerin sublingual (NITROQUICK) 0.4 mg SL tablet dissolve 1 tablet under the tongue every 5 minutes if needed for ... (REFER TO PRESCRIPTION NOTES). aspirin, enteric coated (ASPIRIN, ENTERIC COATED) 81 mg EC tablet Take 81 mg by mouth. acetaminophen (TYLENOL EXTRA STRENGTH ORAL) Take 1 [...] Sodium Chloride (OCEAN NASAL) 0.65 % NASAL Mullen loratadine (CLARITIN) 10 mg tablet Take 1 tablet by mouth once daily. predniSONE (DELTASONE) 20 mg tablet Take 1 tablet by mouth once daily for 5 days. lidocaine (LIDODERM) 5 % Apply 1 Patch as directed every 24 hours. Remove old patch prior to placing new patch. Location: upper back (Patient not taking: Reported on 05/02/2023) No current facility-administered medications for this visit. Objective BP (P) 102/58 (BP Site: Left Arm, BP Position: Sitting, BP Cuff Size: Large Adult) Pulse (!) (P) 52 Temp (!) (P) 35.9 C (96.7 F) (Temporal) Resp (P) 12 Wt (P) 68.9 kg (152 lb) BMI (P) 23.39kg/m Physical Exam Constitutional: General: He is not in acute distress. Appearance: He is not ill-appearing. HENT: Right Ear: Tympanic membrane normal. Left Ear: Tympanic membrane normal. Nose: Mucosal edema, congestion and rhinorrhea present. Right Sinus: No maxillary sinus tenderness or frontal sinus tenderness. Left Sinus: No maxillary sinus tenderness or frontal sinus tenderness. Mouth/Throat: Mouth: Mucous membranes are moist. Pharynx: Oropharynx is clear. Cardiovascular: Rate and Rhythm: Regular rhythm. Bradycardia present. Pulmonary: Breath sounds: Examination of the right-lower field reveals rales. Examination of the left-lower field reveals rales. Rales present. No wheezing or rhonchi. Lymphadenopathy: Cervical: No cervical adenopathy. Neurological: Mental Status: He is alert. Assessment and Plan 1. Sinobronchitis - ICD9: 473.9, 490, ICD10: J32.9, J40 (primary diagnosis) Allergic versus viral. - LORATADINE 10 MG TABLET. Start this over the counter medication. - PREDNISONE 20 MG TABLET. Daily x 5 days. - Antibiotic not recommended at this time. 2. Hyperlipidemia, unspecified hyperlipidemia type - ICD9: 272.4, ICD10: E78.5 - Control undetermined, due for labs - Per [facility]. 3. Essential hypertension - ICD9: 401.9, ICD10: I10 - Controlled - See HPI. Mariano Ocampo MD documented in this encounterWayne Hospital11-14-2023 History of Present illness Narrative* Mariano Ocampo MD - 01/25/2023 10:59 AM EST This note was created using [employer]. Subjective Patient presents with: F/U 6 months Immunizations: Flu vaccination Multiple Concerns Evreton Pardo is a 87 year old male [...] had a vascular study done by his photo journalist. Review of Systems Constitutional: Negative for activity [...] Neurological: Negative for dizziness, syncope, speech difficulty, light- headedness, numbness and headaches. ACTIVE PROBLEM LIST Bph [...] Sodium Chloride (OCEAN NASAL) 0.65 % NASAL Mullen No current facility-administered medications for this visit. [...] AMLODIPINE 2.5 MG TABLET 3. Atherosclerosis of hopland coronary artery of hopland heart without angina pectoris - ICD9: 414.01, [...] vaccine - ICD9: V04.89, ICD10: Z23 - PFIZER-BIONTECH COVID-19 VACCINE (2022- SEASON) AGE 12+ YR 9. Contusion of right forearm, initial encounter - ICD9: 923.10, ICD10: S50.11XA Warm compress. 10. Cervical pain - ICD9: 723.1, ICD10: M54.[address] Poe. Mariano Ocampo MD documented in this encounterWayne Hospital10-26-2023 Miscellaneous Notes* Telephone Encounter - Jony FrancisIlsa Myrna - 01/06/2023 10:12 AM EDT Pharmacy verified in [facility] Patient has been identified by name and [...] (156 lb) Not applicable Please advise. Ilsa Borges Pss documented in this encounterWayne Hospital10-16-2023 History of Present illness Narrative* Mariano Ocampo MD - 12/27/2022 7:20 PM EDT This note was created using [employer]. Subjective Everton Pardo is a 87 year old male [...] to ongoing therapy with Brillinta. I referred himto Dr. Bailey who found no vision abnormalities [...] Sodium Chloride (OCEAN NASAL) 0.65 % NASAL Mullen No current facility-administered medications for this visit. [...] he will call if issue persists. Mariano Ocampo MD documented in this encounterWayne Hospital10-11-2023 Miscellaneous Notes* Telephone Encounter - Jigna Kelley RN - 12/22/2022 4:38 PM EDT Ashlyn at [facility] calling as pt's just called to set up their appt. She states they have not received the consult request and Ashlyn needs more information. Given dx codes on order sheet as well as info Dr. Ocampo has in this encounter. Ashlyn said she will show it to Dr. Bailey to confirm this is something he would see the patient for. She requested office notes as well. Referral order, last OV note and this encounter note all faxed to [phone]. * Telephone Encounter - Alida Piña RN - 12/22/2022 3:57 PM EDT Pts called and is notified of providers message and instructions. She voices understanding. Sent consult orders to Dr. Lester Bailey at fax # [phone]. Told them they needed to get an [...] Please advise. Thank you. Alida Piña RN. * Telephone Encounter - Mariano Ocampo MD - 12/22/2022 2:51 PM EDT ASSESSMENT/PLAN: 1. Nonintractable paroxysmal hemicrania, unspecified chronicity [...] patient. Message left to call back. Mariano Ocampo MD * Telephone Encounter - Elana Valdez LPN - 12/22/2022 2:[address] Osorio called to speak with PCP regarding patient. Asking for PCP to call him back at [phone] as soon as possible. documented in this encounterWayne Hospital09-29-2023 Miscellaneous Notes* Telephone Encounter - Mariano Ocampo MD - 12/10/2022 6:14 PM EDT Patient's request for medication is as follows Requested Prescriptions Signed Prescriptions Disp Refills traMADol (ULTRAM) 50 mg tablet 28 tablet 0 Sig: Take 1 tablet by mouth every 6 hours as needed for pain for up to 7 days. Authorizing Provider: MARIANO OCAMPO Order entered - please phone pharmacy and notify patient. Mariano Ocampo MD * Telephone Encounter - Mireya Page LPN - 12/10/2022 9:51 AM EDT Patient's calls in stating patient has been taking tramadol as directed and is improving but they are running out of medication. Patient has been identified by name and date of : Yes, Provider Terrence Date 12/10/22 Time 9:52am Patient phones for [...] you. Mireya Page LPN documented in this encounterWayne Hospital09-25-2023 Discharge summary Author Hernán Spence [facility] December 06, 2022 11:42am Note Date/Time December 06, 2022 8:35am [facility] Medical Records Department [address] [place] [address] Emergency Department Summary 12/06/22 MR#: [id number] Acct: [id number] Name: EVERTON PARDO Rep #:[id number] : 1935 87 From: Hernán Spence MD PCP: Dr. Mariano Ocampo MD Status:R EG ER Location: ED HPI History of Present Illness Chief Complaint: Chest Pain Narrative Narrative: 87-year-old male past medical history of coronary artery disease with 3 stents, hyperlipidemia, hypertension, presents with chest pain and back pain, even between his shoulder blades and in his low back that he has had for days to weeks. He took Tylenol with mild relief of his symptoms. The pain has become somewhat constant. He denies any vomiting but may have felt slightly nauseated. No diaphoresis or shortness of breath. He denies any exacerbating or alleviating factors truly except for the fact when his was putting lotion on his spine, that that did hurt him. [facility] Medical History Bruit of left carotid artery Dyspnea on exertion Essential hypertension GERD (gastroesophageal reflux disease) Mixed hyperlipidemia Nonrheumatic aortic (valve) stenosis MARISOL (obstructive sleep apnea) Home Medications acetaminophen 500 mg tablet 500 - 1,000 mg PO Q6H PRN PRN Pain 08/18/18 [History Last Taken Unknown] amlodipine 2.5 mg tablet 2.5 mg PO DAILY 08/18/18 [History Last Taken 09/13/22] finasteride 5 mg tablet 5 mg PO DAILY 08/18/18 [History Last Taken Unknown] fluticasone propionate 50 mcg/actuation nasal spray,suspension 1 spray BID PRN ALLERGY SX 08/18/18 [History Last Taken Unknown] fqepmlmh-ztu-hqzok acid 0.4 mg-lycopene 300 mcg-lutein 250 mcg tablet (Centrum Silver) 1 ea PO DAILY 08/18/18 [History Last Taken Unknown] vit C 250 mg-vit E 90 mg-zinc 40 mg-copper 1 wx-gbdtsr-ehzzdp capsule (PreserVision AREDS-2) 1 ea PO BID 08/18/18 [History Last Taken Unknown] omeprazole 20 mg capsule,delayed release 20 mg PO DAILY 09/08/22 [History Last Taken Unknown] ticagrelor 90 mg tablet 90 mg PO BID #60 tabs 09/13/22 [Rx Last Taken Unknown] aspirin 81 mg tablet,delayed release (Adult Low Dose Aspirin) 81 mg PO DAILY 10/22/22 [History Last Taken Unknown] metoprolol tartrate 25 mg tablet 25 mg PO DAILY 10/22/22 [History Last Taken Unknown] atorvastatin 40 mg tablet 80 mg PO .COMPLEX 11/11/22 [History Last Taken Unknown] Allergy/AdvReac Type Severity Reaction Status Date / Time meloxicam [From Mob] Allergy Unknown Verified 12/06/22 08:10 Sulfa (Sulfonamide Allergy Unknown Verified 12/06/22 08:10 Antibiotics) gabapentin AdvReac Unknown Shortness Verified 12/06/22 08:10 of breath Family History Father Myocardial infarction, Onset Age: 60 Brother Heart disease Sister Heart disease Surgical History History of appendectomy History of prostate biopsy Hx of heart artery stent Social History Smoking Status: Never smoker alcohol intake: never ROS ROS ED ROS Narrative Constitutional: No fever, no chills. HEENT: No sore throat. No neck pain. No loss of vision. No rhinorrhea. Cardiovascular: Positive chest pain. No palpitations. No pedal edema. Respiratory: No cough, no shortness of breath. Abdominal: No abdominal pain. No nausea. No vomiting. Genitourinary: No dysuria. No hematuria. Musculoskeletal: No myalgias. No arthralgias. Positive back pain, between shoulder blades, and including low back. Neurologic: No headaches. No dizziness. No lightheadedness. Skin: No rash. No change in color. Psychiatric: No depression. No anxiety. EXAM Physical Exam Narrative Exam Narrative: Afebrile. Vital signs noted. HEENT: Normocephalic. Atraumatic. PERRL, EOMI. Neck soft and supple. No pointtenderness or step off. Cardiovascular: Regular rate and rhythm. No murmurs, rubs, or gallops appreciated. Respiratory: No tachypnea. Lungs clear to auscultation bilaterally. Gastrointestinal: Abdomen soft, nontender, with normoactive bowel sounds. No rebound or guarding. Neurological: Awake. Alert. Nonfocal, nonlateralizing. Skin: No rash. Normal color. No pallor. Musculoskeletal: No pedal edema. Full range of motion extremities. Const Vital Signs: 12/06/22 08:08 12/06/22 08:42 12/06/22 08:42 Temperature 97.6 F L Temperature Source Temporal Pulse Rate 62 Respiratory Rate 14 Respiratory Pattern Normal Blood Pressure 129/70 H Blood Pressure Mean 89 Pulse Ox 100 Oxygen Delivery Method Room Air Room Air MDM MDM MDM Narrative Medical decision making narrative: In the differential diagnosis is musculoskeletal arthritic pain of the spine given his age of 87, however, there is also concern for aortic dissection given the pain between his shoulder blades and his history of hypertension and coronary artery disease. EKG was obtained and interpreted by myself independently as sinus bradycardia at 48 bpm without ectopy or acute ST changes. I do feel that serial troponin should be obtained along with basic laboratory work. For imaging, CTA will be obtained to look at the aorta, so CTA of the chest, abdomen, and pelvis will be obtained to help rule out dissection. I reviewed his laboratory work and he has slightly elevated white count of 12.1 which I think is nonspecific, hemoglobin normal at 13.1, hematocrit normal at 41.4, platelet count normal at 269. BMP is grossly unremarkable with a normal sodium of 139 and potassium normal at 4.2, glucose is slightly elevated at 162 with a normal anion gap of 5. Initial high-sensitivity troponin is 13 with repeat also 13 for a delta of 0. Of most importance is a CTA of the chest, abdomen, and pelvis which is negative for dissection. There is evidence of a pulmonary nodule in the peripheral aspect of the right lobe which will require 12-month follow-up. At this point in time, I offered him something stronger foranalgesia such as tramadol, but he states he prefers Tylenol. I do not feel he requires observation at this time. I feel he can be discharged safely home withfollow-up. Return instructions to the emergency department were reviewed. Disposition is discharged home in stable condition. History & Record Review Discussion w/independent historian: Patient and Family Additional record(s) reviewed:: Prior ED visit and Prior labs Lab Data Attestation: I reviewed the patient's lab results. Labs: Laboratory Results - last 24 hr 12/06/22 12/06/22 08:31 10:46 WBC 12.1 H RBC 4.28 L Hgb 13.1 Hct 41.4 MCV 96.7 H MCH 30.6 MCHC 31.6 L RDW Std Deviation 50.6 H RDW Coeff of Kristan 14.2 Plt Count 269 MPV 10.3 Immature Gran % (Auto) 0.800 Neut % (Auto) 79.0 H Lymph % (Auto) 9.[address] % (Auto) 9.5 Eos % (Auto) 1.1 Baso % (Auto) 0.6 Absolute Neuts (auto) 9.6 H Absolute Lymphs (auto) 1.09 Nucleated RBC % 0 Sodium 139 Potassium 4.2 Chloride 107 Carbon Dioxide 27.0 Anion Gap 5 BUN 17 Creatinine 0.99 Estim Creat Clear Calc 51.00 Est GFR (MDRD) Af Amer 93 Est GFR (MDRD) Non-Af 76 BUN/Creatinine Ratio 17.2 Glucose 162 H Calcium 9.3 Troponin I High Sens 13 13 Radiography Diagnostic Testing: Clinical Impression(s) from Imaging Studies Chest/Abdomen/Pelvis CTA 12/06/22 08:31 IMPRESSION: No evidence of aortic dissection. 3.8 mm noncalcified nodule in the peripheral aspect of the right lobe. A 12 month follow-up examination is recommended. Tiny gallstones. Left renal cysts. Prostatic enlargement. Electronically Signed: Dwayne Oliveira MD at 10:00 EDT , Discharge Plan Triage Chief Complaint: Chest Pain ED Provider: Hernán Spence Dx/Rx/DC Orders Clinical Impression: Chest pain, CAD (coronary artery disease), Back pain Instructions: ED Back Pain (Acute or Chronic), ED Chest Pain, Uncertain Cause Prescriptions: No Action omeprazole 20 mg capsule,delayed release(DR/EC) 20 mg PO DAILY aspirin [Adult Low Dose Aspirin] 81 mg tablet,delayed release (DR/EC) 81 mg PO DAILY metoprolol tartrate 25 mg tablet 25 mg PO DAILY amlodipine 2.5 MG tablet 2.5 mg PO DAILY acetaminophen 500 MG tablet 500 - 1,000 mg PO Q6H PRN PRN (Reason: Pain) fluticasone propionate 1 SPRAY spray,suspension 1 spray NASAL BID PRN (Reason: ALLERGY SX) finasteride 5 MG tablet 5 mg PO DAILY Centrum Silver 1 EACH tablet 1 ea PO DAILY PreserVision AREDS-2 1 EACH capsule 1 ea PO BID ticagrelor 90 mg tablet 90 mg PO BID Qty: 60 1RF atorvastatin 40 mg tablet 80 mg PO .COMPLEX Rx Instructions: 80 mg orally take 1/2 tablet daily once a day.; Primary Care Provider: Mariano Ocampo Referrals: Mariano Ocampo MD [Primary Care Provider] - As soon as possible Disposition Disposition: Home, Self Care What to do if you have Problems For any increased pain, shortness of breath, bleeding, nausea or vomiting, chestpain, or any unexpected problems, contact your Primary Care Provider. Call [facility] ([phone]) or report to the closest Emergency Room. Call 911 if necessary. 12/06/22 1142 <Electronically signed by Hernán Spence MD> Cosigner Signature (if applicable): CC: Dr. Mariano Ocampo MD ~ Signed [facility] Work Phone: [phone]) 599-529608-10-2023 Instructions* Patient Instructions* Mariano Ocampo MD - 10/21/2022 10:36 AM EDT Your ATORVASTATIN dose is 80 mg for cholesterol lowering. documented in this encounterWayne Hospital08-10-2023 History of Present illness Narrative* Mariano Ocampo MD - 10/21/2022 10:22 AM EDT This note was created using [employer]. Subjective Everton Pardo is a 86 year old male. He had heart catheterization showing multivessel coronary artery disease. He was referred to Dr. Garcia in [facility] in [place] where he underwent multivessel PCI. [facility] as well as cardiac rehab. Weclarified his medication list, especially his statin dose. [...] Sodium Chloride (OCEAN NASAL) 0.65 % NASAL Mullen atorvastatin (LIPITOR) 80 mg tablet Take 1 [...] normal. Assessment and Plan 1. Atherosclerosis of hopland coronary artery of hopland heart without angina pectoris - ICD9: 414.01, ICD10: I25.10 (primary diagnosis) See HPI. 2. Essential hypertension - ICD9: 401.9, ICD10: I10 - Controlled 3. Hyperlipidemia, unspecified hyperlipidemia type - ICD9: 272.4, ICD10: E78.5 - Controlled - Continue current medications - See printed instructions or information. 4. Stented coronary artery - ICD9: V45.82, ICD10: Z95.5 DAPT x 6 months or more. Aspirin indefinitely. Mariano Ocampo MD documented in this encounterWayne Hospital08-07-2023 Telephone encounter Note * Telephone Encounter - Sierra Narayan - 10/18/2022 8:41 AM EDT Faxed rehab order that is signed by Dr. Ayon to [phone] [id number] Miscellaneous Notes* Telephone Encounter - Sierra Narayan - 10/18/2022 8:41 AM EDT Faxed rehab order that is signed by Dr. Ayon to [phone] * Telephone Encounter - Sierra Narayan - 10/15/2022 1:23 PM EDT Faxed rehab order, Alok office note and PCI report to [facility] at [phone], spoke with patients and she is aware that I was faxing info * Telephone Encounter - Debbie Mora - 10/13/2022 1:53 PM EDT Spouse [facility] stating that Dr. Ayon did surgery and cardiac rehab order was to be [facility] to [facility]. States order not received. * Telephone Encounter - Alexa June - 09/30/2022 3:12 PM EDT Faxed rehab order and office note to [facility] documented in this encounterSKnox Community [id number] Telephone encounter Note* Telephone Encounter - Sierra Narayan - 10/15/2022 1:23 PM EDT Faxed rehab order, Alok office note and PCI report to [facility] at [phone], spoke with patients and she is aware that I was faxing info [id number] Miscellaneous Notes* Telephone Encounter - Sierra Narayan - 10/15/2022 1:23 PM EDT Faxed rehab order, Alok office note and PCI report to [facility] at [phone], spoke with patients and she is aware that I was faxing info * Telephone Encounter - Debbie Rodarte July - 10/13/2022 1:53 PM EDT Spouse [facility] stating that Dr. Ayon did surgery and cardiac rehab order was to be sent to [facility]. States order not received. * Telephone Encounter - Alexa June - 09/30/2022 3:12 PM EDT Faxed rehab order and office note to [facility] documented in this [facility]08-02-2023 Telephone encounter Note* Telephone Encounter - Debbie Rodarte July - 10/13/2022 1:53 PM EDT Spouse [facility] stating that Dr. Ayon did surgery and cardiac rehab order was to be sent to [facility]. States order not received. [id number] Telephone encounter Note* Telephone Encounter - Alexa June - 09/30/2022 3:12 PM EDT Faxed rehab order and office note to [facility] [id number] Miscellaneous Notes* Telephone Encounter - Alexa June - 09/30/2022 3:12 PM EDT Faxed rehab order and office note to [facility] documented in this [facility]07-20-2023 History of Present illness Narrative* BERNARDO Kennedy CNP - 09/30/2022 1:00 PM EDT Images from the original note were not included. [facility] [address] [address] Dept: [phone] Dept Loc: [phone] DATE of SERVICE: 09/30/2022 DATE of : 1935 PRIMARY CARE PHYSICIAN: Mariano Ocampo Visit type: ESTABLISHED Chief Complaint: Chief Complaint Patient presents with Coronary Artery Disease S/p multivessel PCI Assessment and Plan 1. 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 Decrease dose and he will be seen by Dr Gee in 4-6 weeks. 4. Mixed hyperlipidemia Continue statin therapy 5. MARISOL (obstructive sleep apnea) Unable to tolerate CPAP Followup: Follow up for prn; will schedule followup with Dr Gee in 4 weeks. Subjective History of Present Illness: Everton Pardo is a 86 y.o. male with [...] and decreased activity tolerance) by Dr Gee ([facility]). Pt preferred percutaneous intervention vs CABG. Referredto Dr Ayon for multivessel PCI on 09/20/2022 [...] wishes to participate in cardiac rehab in [facility]. Has been making dietary changes with weight [...] 09/20/2022 Performed by Clayton Ayon MD at [facility] Cardiac Cath/EP Lab CARDIAC CATHETERIZATION N/A 09/20/2022 Performed by Clayton Ayon MD at [facility] Cardiac Cath/EP Lab PROSTATE BIOPSY [...] mg) by mouth Nightly., Disp: 30 tablet, Rfl:11 Brilinta 90 MG tablet, Take 1 tablet [...] 2 times daily. Protect from light, Disp: ,Rfl: metoprolol succinate XL (Toprol-XL) 25 MG 24 [...] Exam Vitals reviewed. Exam conducted with a associate financial representative present (). Constitutional: Appearance: Normal appearance. HENT: [...] QT Interval 442 QTC Interval 442 P [place] 53 QRS [place] 52 T Wave [place] 129 RI Interval 229 Impression Sinus rhythm Prolonged RI interval Repol abnrm suggests ischemia, lateral leads [...] tolerates. ASA indefinitely. Cardiac rehabilitation Alok Whitehead, YARELI, CONTRACT CLERK-, [facility]-[address] [address] p [phone] f [phone] [email or web address] documented in this [facility]07-11-2023 NoteReceived referral and reviewed chart. Unable to discuss Phase II Cardiac Rehab Referral with Everton Pardo at this time. Will follow to discuss cardiac rehab when appropriate. Patient will be contacted at home if discharged prior to discussion. [facility]07-11-2023 NoteName: Everton Pardo Date of : 1935 Date of Admission: 09/20/2022 Date of Discharge: 09/21/2022 Admitting physician: Clayton Ayon MD Discharge Attending: BERNARDO Sethi CNP, Dr. Ayon Primary Care Physician: Mariano Ocampo Review of Systems: Review of Systems Constitutional: [...] Head: Normocephalic and atraumatic. 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 Unable to discuss Phase II Cardiac Rehab Referral with Everton Del Toro at this time. Will follow to discuss cardiac rehab when appropriate. Patient will be contacted at home if discharged prior to discussion. [facility] [id number] Consult note* Keyonna Scales - 09/21/2022 11:27 AM EDTAssociated Order(s): IP CONSULT TO CARDIAC REHAB; IP CONSULT TO CARDIAC REHAB Received referral and reviewed chart. Unable to discuss Phase II Cardiac Rehab Referral with Everton Del Toro at this time. Will follow to discuss cardiac rehab when appropriate. Patient will be contacted at home if discharged prior to discussion. documented in this [facility]07-11-2023 Nurse Note* Keeley Manning RN - 09/21/2022 10:45 AM EDT Ok for discharge, hl and tele have been discontinued. Reviewed home going instructions. statesnayeli understands and has no questions. Has belongings, scripts sent to pt pharmacy. [facility] [id number] Nurse Note* Keeley Manning RN - 09/21/2022 10:45 AM EDT Ok for discharge, hl and tele have been discontinued. Reviewed home going instructions. statesshe understands and has no questions. Has belongings, scripts sent to pt pharmacy. documented in this [address]11-2023 Hospital course Narrative* Clayton Ayon MD - 09/21/2022 9:39 AM EDT Images from the original note were not included. Name: Everton Pardo Date of : 1935 Date of Admission: 09/20/2022 Date of Discharge: 09/21/2022 Admitting physician: Clayton Ayon MD Discharge Attending: BERNARDO Sethi CNP, Dr. Silver Primary Care Physician: Mariano Ocampo Review of Systems: Review of Systems Constitutional: [...] Head: Normocephalic and atraumatic. 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 There are multiple other small diagonal vessels( [...] we deployed a 3 x 38 mm drug- eluting stent. A second 3.5 x 12 mm [...] coronary artery. After guide engagement and wiring ofthe vessel, the right posterolateral branch was predilated [...] ASA indefinitely. Cardiac rehabilitation HOSPITAL COURSE : Everton Pardo is a 86 y.o. male cardiac risk factors positive for hypertension, hyperlipidemia and family history of premature CAD. Negative for cigarette smoking or diabetes mellitus. Past medical history: Hard of hearing with hearing aids. August 2022 carotid duplex shows less than 50% stenoses bilaterally. He does have MARISOL but is intolerant of CPAP. He is a patient of Dr. Jasper Gee from [place]. Over the past several years he has [...] first diagonal with ostial-proximal stenosis. These lesions areapproachable percutaneously. Given the patient's age, Dr. Gee and the patient preferred to proceed with percutaneous intervention rather than CABG. He saw Dr. Ayon in office and plan for PCI. He presented to [facility] 09/20/22 for elective PCI and received successful RUPESH prox LAD, RUPESH OM1, RUPESH RPL, PTCA diagonal via femoral site. He tolerated procedure well and was kept overnight for monitoring.Sheath removed without difficulty. Pt had constant CP worsened with palpation that appeared musculoskeletal, but otherwise denied symptoms. Denied SOB, CAR, vision/speech changes. EKG stable. VSS. Labs stable. Med changes include: increased atorvastatin, added metoprolol succinate, added prn ntg SL,changed PPI to on empty stomach. Other home meds continued including ASA, ticagrelor, amlodipine. Overnight he did well without new complaints. He will be discharged home today with plans to follow up in Dr. Ayon's office with NITZA in 2 weeks then back to Dr. Gee. Educated provided to pt and family, verbal and written. Very AUGUSTINE. Denies Angina or SOB.Does c/o bipectoral discomfort [...] musculoskeletal. Denies SOB. VSS, labs stable. EKG stable.Right femoral site stable. Will add BB and prn ntg SL. Will increase atorvastatin dose to 80mg. Continue ASA, ticagrelor, atorvastatin, amlodipine, and PPI. Advised to continue ASA 81mg daily lifelong without interruption and Brilinta 90mg PO BID for at least 1 year without interruption. Discharge instructions, medications, restrictions, and follow up appt reviewed and verbalized understanding. He will utilize [id number] for his home-going Rx. He was instructed to inform office if: he has anydifficulty obtaining Rx or if this becomes a [...] as other medications prescribed for you. Read thedirections carefully, and ask your doctor or other care provider to review them with you. Where to Get Your Medications These medications were sent to [id number] - [place], [place] - [address] [facility] [address] [id number] atorvastatin 80 MG tablet metoprolol succinate XL 25 MG 24 hr tablet nitroglycerin 0.4 MG SL tablet ICD Registry Information/AMI Registry Information NYHA Functional Classification: Class I Medical Therapy Aspirin: Yes If NO reason for omission ROBB/ARB: No If NO reason for omission Not indicated Statin: Yes If NO reason for omission Beta Carlos: Yes If NO reason for omission P2Y12 Inhibitors: Yes If NO reason for omission Aldosterone inhibitor: No If NO reason for omission Not indicated Cardiac rehab Discussed with patient: Yes If NO reason for omission Cardiac Rehab The Cardiac Rehab team at [facility] consists of highly skilled exercise [...] your heart. We have facilities at both [facility] and [facility]. At both locations we have street level parking which is free and our sites are easily accessible. For both [facility] you can contact us at . We invite you to call us with your questions or to get started in our program. If you have other questions or concerns be sure to ask your provider during your follow up visit. We look forward to seeing you there. Our locations: [facility] [address] [facility] Ground Floor [id number] - Ground floor BMI Classification: Overweight (BMI 25.0-29.9) DIET: A lowfat, low cholesterol diet was discussed with the patient. Discharge to Home Condition at Discharge: good Follow up with cardiology Alok Whitehead, 09/30/22 at 1:00pm If any questions call [facility] Cardiology-[facility] office [phone] Total time spent for Discharge time greater [...] and discussed the patient with the NITZA. Bernieee with the NITZA's medical decision making and have edited the note to reflect my clinical findings and my assessment and plan. Total time 35 minutes. NITZA's time [address] Ayon's time 20 minutes. documented in this [facility]07-10-2023 Hospital Discharge instructions* Discharge Instructions* Liz Berger, PROTOTYPE ENGINEER MANAGER - CONTRACT CLERK - 09/20/2022 3:33 PM EDT Call your doctor with any medication questions or if you notice any side effects from your medications. If you are unable to fill your medications, please call your Molding Associate immediately. The office number is located with [...] healing wound should remain soft and dry. Keepthe site clean and dry. Cover with large band aid and change dressing for total of five days. No lifting, pushing or pulling more than 5 pounds for 5 days. No driving for three days. Limit your stair climbing for three days. GIVE PCI PACKET (FROM INCOME TAX EXPERT) TO PATIENT Give Coronary Artery Discharge Book. [...] Cardiac Rehab The Cardiac Rehab team at [facility] consists of highly skilled exercise [...] your heart. We have facilities at both [facility] and [facility]. At both locations we have street level parking which is free and our sites are easily accessible. For both [facility] you can contact us at . We invite you to call us with your questions or to get started in our program. If you have other questions or concerns be sure to ask your provider during your follow up visit. We look forward to seeing you there. Our locations: [facility] [address] [facility] Ground Floor [id number] - [facility] documented in this [facility]07-10-2023 History of Present illness Narrative* BERNARDO Sethi CNP - 09/20/2022 3:31 PM EDT Checked on pt s/p PCI. states he just fell asleep. States he was having mild chest ache since PCI and some chronic back discomfort but that he just got comfortable and fell asleep. States he didn't have SOB, CAR, vision/speech changes. Femoral site stable, sheath still in as ACT was >170 andawaiting recheck. EKG stable. Plan to keep overnight and discharge in morning. Will educate pt in the morning. documented in this [facility]07-10-2023 Note* Pre-Sedation Documentation - Ganesh Reid MD - 09/20/2022 10:57 AM EDT Sedation Plan ASA class 3 - patient [...] and proceed to administer sedation as planned. [id number] Miscellaneous Notes* Pre-Sedation Documentation - Ganesh Reid MD - 09/20/2022 10:57 AM EDT Sedation Plan ASA class 3 - patient [...] administer sedation as planned. 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) +6 more Dx New Patient Shortness of Breath Chest Pain; Referred by Jasper Gee Reason for Visit Progress Notes Clayton Ayon MD (Physician) Cardiology Expand All Collapse All [facility] Cardiovascular Medicine [facility] [address] [place] [address] Dept: [phone] Dept Loc: [phone] DATE of SERVICE: 09/16/22 TIME of SERVICE: 4:25 PM DATE of : 1935 PRIMARY CARE PHYSICIAN: Mariano Ocampo Visit type: New patient Subjective Chief Complaint: Chief Complaint Patient presents with New Patient Consult for PCI Shortness of Breath Chest Pain History of Present Illness: Everton Pardo is a 86 y.o. male cardiac risk factors positive for hypertension, hyperlipidemia and family history of premature CAD. Negative for cigarette smoking or diabetes mellitus. Past medical history: Hard of hearing with hearing aids. August 2022 carotid duplex shows less than 50% stenoses bilaterally. He does have MARISOL but is intolerant of CPAP. He is a patient of Dr. Jasper Gee from [place]. Over the past several years he has [...] in the past. No prior history of MN, CVA, rheumatic fever. He thinks he may [...] Left Ear: External ear normal. Ears: Comments: AUGUSTINE - wearing hearing aides Nose: Nose normal. [...] effort is normal. 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) +6 more Dx New Patient Shortness of Breath Chest Pain; Referred by Jasper Gee Reason for Visit Progress Notes Clayton Ayon MD (Physician) Cardiology Expand All Collapse All [facility] Cardiovascular Medicine [facility] [address] [facility] [address] Dept: [phone] Dept Loc: [phone] DATE of SERVICE: 09/16/22 TIME of SERVICE: 4:25 PM DATE of : 1935 PRIMARY CARE PHYSICIAN: Mariano Ocampo Visit type: New patient Subjective Chief Complaint: Chief Complaint Patient presents with New Patient Consult for PCI Shortness of Breath Chest Pain History of Present Illness: Everton Pardo is a 86 y.o. male cardiac risk factors positive for hypertension, hyperlipidemia and family history of premature CAD. Negative for cigarette smoking or diabetes mellitus. Past medical history: Hard of hearing with hearing aids. August 2022 carotid duplex shows less than 50% stenoses bilaterally. He does have MARISOL but is intolerant of CPAP. He is a patient of Dr. Jasper Gee from [place]. Over the past several years he has [...] in the past. No prior history of MN, CVA, rheumatic fever. He thinks he may [...] Left Ear: External ear normal. Ears: Comments: AUGUSTINE - wearing hearing aides Nose: Nose normal. [...] effort is normal. B (more content not included)...[facility]07-07-2023 Telephone encounter Note* Telephone Encounter - BERNARDO Madrigal CNP - 09/17/2022 10:54 AM EDT Prep for proc complete. [facility] [employer] Work Phone: [phone] Miscellaneous Notes* Telephone Encounter - BERNARDO Madrigal CNP - 09/17/2022 10:54 AM EDT Prep for proc complete. * Telephone Encounter - Eloisa Chavez RN - 09/17/2022 8:45 AM EDT PCI 09/20/2022 @ [address] Ayon Dx: CAD H&P 09/16/2022 (KS) EKG 09/08/2022 (media tab) CBC, BMP 09/08/2022 IVF 0.9% NSS @ KVO Benadryl 25 mg po 1 hour before Valium 5 mg po 1 hour before * Telephone Encounter - Eloisa Chavez RN - 09/16/2022 10:39 AM EDT Left voicemail asking for return call to discuss procedure date/time and prep instructions. * Telephone Encounter - Sierra Narayan - 09/16/2022 10:14 AM EDT Dx: CAD Procedure: PCI Date/Time: 09/20/22 at 10am Surgeon: Caesar Location: [facility] Admission: OUTPATIENT documented in this [facility]07-07-2023 History and physical note* Taryn Ramirez, PROTOTYPE ENGINEER MANAGER - CONTRACT CLERK - 09/17/2022 10:48 AM EDT Images from the original note were not included. Office Visit 09/16/2022 [facility] Cardiology Clayton Ayon MD Cardiology Coronary artery disease involving hopland coronary artery of hopland heart with other formof angina pectoris (HCC) +6 more Dx New Patient Shortness of Breath Chest Pain; Referred by Jasper Gee Reason for Visit Progress Notes Clayton Ayon MD (Physician) Cardiology Expand All Collapse All [facility] Cardiovascular Medicine [facility] [address] [place] [address] Dept: [phone] Dept Loc: [phone] DATE of SERVICE: 09/16/22 TIME of SERVICE: 4:25 PM DATE of : 1935 PRIMARY CARE PHYSICIAN: Mariano Ocampo Visit type: New patient Subjective Chief Complaint: Chief Complaint Patient presents with New Patient Consult for PCI Shortness of Breath Chest Pain History of Present Illness: Everton Pardo is a 86 y.o. male cardiac risk factors positive for hypertension, hyperlipidemia and family history of premature CAD. Negative for cigarette smoking or diabetes mellitus. Past medical history: Hard of hearing with hearing aids. August 2022 carotid duplex shows less than 50% stenoses bilaterally. He does have MARISOL but is intolerant of CPAP. He is a patient of Dr. Jasper Gee from [place]. Over the past several years he has [...] first diagonal with ostial-proximal stenosis. These lesions areapproachable percutaneously. I have reviewed the angiogram earlier this week and discussed with . Given the patient's age, Dr. Gee and the patient preferred to proceed with percutaneous intervention rather than CABG. The patient was told of a heart murmur in the past. No prior history of MN, CVA, rheumatic fever. He thinks he may have had a TIA sometime in the remote past. No palpitations or syncope. No edema, orthopnea, PND. No bleeding or bruising. The patient has been taking aspirin [address] Gutierrez started him on Brilinta already. History and [...] 2 times daily. Protect from light, Disp: ,Rfl: Objective Physical Examination: Vitals: Vitals Vitals: 09/16/22 [...] Left Ear: External ear normal. Ears: Comments: AUGUSTINE - wearing hearing aides Nose: Nose normal. [...] previous visit. Last Cardiac Catheterization: 09/13/2022 at [facility] by Dr. Gee Last EP Study: No results found for this or any previous visit. Radiology: CXR: No orders to display Assessment and Plan 1. 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 Ayon progress note dated 09/16/[address] Ayon. No contrast allergies, EKG under media tab. Creatinine is normal. [facility] Work Phone: 1(142) 816-434807-07-2023 History and physical note* Taryn Ramirez, PROTOTYPE ENGINEER MANAGER - CONTRACT CLERK - 09/17/2022 10:48 AM EDT Images from the original note were not included. 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 with other formof angina pectoris (HCC) +6 more Dx New Patient Shortness of Breath Chest Pain; Referred by Jasper Gee Reason for Visit Progress Notes Clayton Ayon MD (Physician) Cardiology Expand All Collapse All [facility] Cardiovascular Medicine [facility] [address] [facility] [address] Dept: [phone] Dept Loc: [phone] DATE of SERVICE: 09/16/22 TIME of SERVICE: 4:25 PM DATE of : 1935 PRIMARY CARE PHYSICIAN: Mariano Ocampo Visit type: New patient Subjective Chief Complaint: Chief Complaint Patient presents with New Patient Consult for PCI Shortness of Breath Chest Pain History of Present Illness: Everton Pardo is a 86 y.o. male cardiac risk factors positive for hypertension, hyperlipidemia and family history of premature CAD. Negative for cigarette smoking or diabetes mellitus. Past medical history: Hard of hearing with hearing aids. August 2022 carotid duplex shows less than 50% stenoses bilaterally. He does have MARISOL but is intolerant of CPAP. He is a patient of Dr. Jasper Gee from [place]. Over the past several years he has [...] first diagonal with ostial-proximal stenosis. These lesions areapproachable percutaneously. I have reviewed the angiogram earlier this week and discussed with . Given the patient's age, Dr. Gee and the patient preferred to proceed with percutaneous intervention rather than CABG. The patient was told of a heart murmur in the past. No prior history of MN, CVA, rheumatic fever. He thinks he may have had a TIA sometime in the remote past. No palpitations or syncope. No edema, orthopnea, PND. No bleeding or bruising. The patient has been taking aspirin [address] Gutierrez started him on Brilinta already. History and [...] 2 times daily. Protect from light, Disp: ,Rfl: Objective Physical Examination: Vitals: Vitals Vitals: 09/16/22 [...] Left Ear: External ear normal. Ears: Comments: AUGUSTINE - wearing hearing aides Nose: Nose normal. [...] previous visit. Last Cardiac Catheterization: 09/13/2022 at [facility] by Dr. Gee Last EP Study: No results found for this or any previous visit. Radiology: CXR: No orders to display Assessment and Plan 1. 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 Ayon progress note dated 09/16/[address] Ayon. No contrast allergies, EKG under media tab. Creatinine is normal. documented in this encounterSKnox Community [id number] Telephone encounter Note* Telephone Encounter - Eloisa Chavez RN - 09/17/2022 8:45 AM EDT PCI 09/20/2022 @ [address] Ayon Dx: CAD H&P 09/16/2022 (KS) EKG 09/08/2022 (media tab) CBC, BMP 09/08/2022 IVF 0.9% NSS @ KVO Benadryl 25 mg po 1 hour before Valium 5 mg po 1 hour before [id number] History of Present illness Narrative* Clayton Ayon MD - 09/16/2022 4:15 PM EDT Images from the original note were not included. [facility] Cardiovascular Medicine [facility] [address] [facility] [address] Dept: [phone] Dept Loc: [phone] DATE of SERVICE: 09/16/22 TIME of SERVICE: 4:25 PM DATE of : 1935 PRIMARY CARE PHYSICIAN: Mariano Ocampo Visit type: New patient Subjective Chief Complaint: Chief Complaint Patient presents with New Patient Consult for PCI Shortness of Breath Chest Pain History of Present Illness: Everton Pardo is a 86 y.o. male cardiac risk factors positive for hypertension, hyperlipidemia and family history of premature CAD. Negative for cigarette smoking or diabetes mellitus. Past medical history: Hard of hearing with hearing aids. August 2022 carotid duplex shows less than 50% stenoses bilaterally. He does have MARISOL but is intolerant of CPAP. He is a patient of Dr. Jasper Gee from [place]. Over the past several years he has [...] first diagonal with ostial-proximal stenosis. These lesions areapproachable percutaneously. I have reviewed the angiogram earlier this week and discussed with . Given the patient's age, Dr. Gee and the patient preferred to proceed with percutaneous intervention rather than CABG. The patient was told of a heart murmur in the past. No prior history of MN, CVA, rheumatic fever. He thinks he may have had a TIA sometime in the remote past. No palpitations or syncope. No edema, orthopnea, PND. No bleeding or bruising. The patient has been taking aspirin [address] Gutierrez started him on Brilinta already. History and [...] 2 times daily. Protect from light, Disp: ,Rfl: Objective Physical Examination: Vitals: Vitals: 09/16/22 1559 [...] Left Ear: External ear normal. Ears: Comments: AUGUSTINE - wearing hearing aides Nose: Nose normal. [...] previous visit. Last Cardiac Catheterization: 09/13/2022 at [facility] by Dr. Gee Last EP Study: No results found for this or any previous visit. Radiology: CXR: No orders to display Assessment and Plan 1. 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 [...] ischemic heart disease Clayton Ayon MD, PUMA, FACC, [facility] Interventional Cardiology Clinical Professor of Internal Medicine, [facility] Past-President, Medical Staff, [facility] Cardiology[address] [address] p [phone] f [phone] [email or web address] Disclaimer Captured images seen in this note from are not a substitute for a comprehensive interpretation of the entire data set as reflected by the interpreting physician with regard to radiology, echocardiography, and other diagnostic images. This note may have been dictated using [employer] Medical Practice Edition 2.6 and/or [employer]Sense Voice Recognition Feature. The document was proofread, however unrecognized voice recognition grain operator errors may be present. documented in this [facility]07-06-2023 Instructions* Patient Instructions* Eloisa Chavez RN - 09/16/2022 4:15 PM EDT Images from the original note were not included. [facility] CARDIOLOGY [address] [facility] [address] Dept: [phone] Dept You are scheduled for [facility] with Dr. Clayton Ayon on 09/20/2022 at 10 am Report to [address] by 830 am You can park in the [address] Park[address] Deck or use [employer] parking (for a nominal fee of $7-8) and enter the hospital using the [address] entrance across from the parking deck You will need a designated box truck driver for the day of your procedure [...] the office if you have any questions. * Attachments The following attachments cannot be sent through Care Everywhere. * Coronary Artery Disease (Algerian) * Angina (Algerian) * Coronary Angioplasty (Algerian) documented in this [facility]07-06-2023 NoteLeft voicemail asking for return call to discuss procedure date/time and prep instructions.[facility]07-06-2023 NoteDx: CAD Procedure: PCI Date/Time: 09/20/22 at 10am Surgeon: Caesar Location: [facility] NoteChart abstracted for cardiac procedure.[facility]07-06-2023 Telephone encounter Note* Telephone Encounter - Eloisa Chavez RN - 09/16/2022 10:39 AM EDT Left voicemail asking for return call to discuss procedure date/time and prep instructions. [facility] [id number] Telephone encounter Note* Telephone Encounter - Sierra Narayan - 09/16/2022 10:14 AM EDT Dx: CAD Procedure: PCI Date/Time: 09/20/22 at 10am Surgeon: Caesar Location: [facility] Admission: OUTPATIENT [facility] [id number] Miscellaneous Notes* Telephone Encounter - Elana Valdez LPN - 08/13/2022 4:52 PM EDT Patients given results of Echo. They will call back with decision on photo journalist. [facility] in this [facility]Wayne [facility]23 Miscellaneous Notes* Addendum Note - Mariano Ocampo MD - 07/22/2022 11:01 AM EDTAddended by: MARIANO OCAMPO on: 07/22/2022 11:01 AM Modules accepted: Orders documented in this [facility]Way[facility]05-[facility]-2023 History of Present illness Narrative* Mariano Ocampo MD - 07/22/2022 9:55 AM EDT This note was created using White Plume Technologiesriter. Subjective Everton Pardo is a 86 year old male. He generally felt well. He may have some increased fatigabilityand dyspnea on exertion over the past year. He outright was not interested in having a stress test. Main concerns were chronic foot, leg cramps, not related to activity, ongoing for years, on averageonce a week, most at night. Other concern [...] Sodium Chloride (OCEAN NASAL) 0.65 % NASAL Mullen No current facility-administered medications for this visit. Objective BP 124/68 (BP Site: Left Arm, BP Position: Sitting, BP Cuff Size: Large Adult) Pulse (!) 56 Resp 12 Ht 171.7 cm (5' 7.6) Wt 79.8 kg (176 lb) BMI 27.08 [...] Reassured. Observe. 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 4. Impaired fasting blood sugar [...] METABOLIC PANEL - LIPID PANEL BASIC Mariano Ocampo MD * Mariano Ocampo MD - 07/22/2022 9:43 AM EDT Medicare Yearly Visit Medical B eligibilty date [...] Problem Relation Age of Onset Heart Father [place] age 60s Cancer Mother Pt states does not remember type Prostate Cancer Brother GI Sister gastrectomy Cancer Sister stomach cancer other (fibromyalgia) Sister No Known Problems Other Lung disease SOCIAL HISTORY: Social History Tobacco Use Smoking status: Never Smokeless tobacco: Never Tobacco comments: No smoking in childhood home. 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 He watches his diet for sodium, low fat and low cholesterol most of the time. List of current specialists seen: Dr. Jayjay Kim, dermatology. Dr. Lester Bailey, ophthalmology. Dr. Mccormack, ENT. End of Live Planning discussed including patients advanced directive wishes: Yes I am willing to follow Everton's advanced directives. Copy needed. PHQ-2 / Depression [...] bars in the bathroom, lack of handrails onthe stairs or have poor lighting? No Hearing Evaluation: wears hearing aids PHYSICAL EXAM BP 124/68 (BP Site: Left Arm, BP Position: Sitting, BP Cuff Size: Large Adult) Pulse (!) 56 Resp 12 Ht 171.7 cm (5' 7.6) Wt 79.8 kg (176 lb) BMI 27.08 [...] - Fall avoidance - Depression screening Mariano Ocampo MD [facility] Miscellaneous Notes* Telephone Encounter - Debbie Rodarte July - 10/13/2022 1:53 PM EDT Spouse [facility] stating that Dr. Ayon did surgery and cardiac rehab order was to be sent to [facility]. States order not received. * Telephone Encounter - Alexa June - 09/30/2022 3:12 PM EDT Faxed rehab order and office note to [facility] documented in this [facility]11-09-2022 Instructions* Patient Instructions* Mariano Ocampo MD - 01/20/2022 11:02 AM EST TAKE CLARITIN (LORATADINE) without decongestant daily for 2 months. documented in this [facility]11-[facility]22 History of Present illness Narrative* Mariano Ocampo MD - 01/20/2022 10:45 AM EST This note was created using NoteWriter. Subjective Everton Pardo is a 86 year old male. He felt well in general. We reviewed his labs. 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 The past few weeks, he had transient neck and headache with significant coughing or sneezing. He went to [facility] and was told to use Sinex [...] Sodium Chloride (OCEAN NASAL) 0.65 % NASAL Mullen Psyllium Husk-Aspartame (METAMUCIL SUGAR-FREE, ASPART,) 3.4 gram/5.8 [...] months. See printed instructions or information. Mariano Ocampo MD documented in this encounterWay[facility]10-24-2022 Miscellaneous Notes* Telephone Encounter - [facility] - 01/04/2022 9:49 AM EDT Patient has been identified by name and date of : Yes Requested Prescriptions Pending Prescriptions Disp Refills finasteride (PROSCAR) 5 mg tablet 90 tablet 3 Sig: Take 1 tablet by mouth once daily. RX INSTRUCTIONS: Patient aware RX will be sent to pharmacy. No need to notify patient. [facility] documented in this [facility]Way[facility]10-07-2022 Miscellaneous Notes* Telephone Encounter - Ilsa Francis - 12/18/2021 9:55 AM EDT Pharmacy verified in Epic Patient has been identified by name and [...] advise. Ilsa Borges Pss documented in this encounterWayne Hospital05-09-2022 History of Present illness Narrative* Mariano Ocampo MD - 07/20/2021 2:24 PM EDT This note was created using Hytle. Subjective Everton Pardo is a 85 year old male. [...] Sodium Chloride (OCEAN NASAL) 0.65 % NASAL Mullen Psyllium Husk-Aspartame (METAMUCIL SUGAR-FREE, ASPART,) 3.4 gram/5.8 [...] METABOLIC PANEL - LIPID PANEL BASIC Mariano Ocampo MD documented in this encounterWayne [facility]11-08-2021 History of Present illness Narrative* Nicole Reddy RT(R) - 01/19/2021 5:00 PM EST Radiology Service Progress Note PATIENT NAME: Everton Pardo DATE OF SERVICE: January 19, 2021 TIME: 4:56 PM PATIENT IDENTITY VERIFICATION COMPLETED USING TWO (2) IDENTIFIERS: Name and Date of confirmedby patient verbally. FALL SCREENING: Has the patient had 2 falls in the last year or 1 fall with injury or currently using an Ambulatory Assistive Device (Walker, Cane, Wheelchair, Crutches, etc.)? No PATIENT GENDER DATA: Male PATIENT RELEVANT IMPLANT DATA REVIEWED: Yes RADIOLOGY DEPARTMENT: General X-ray: Exam(s) Completed: Chest X-Ray PERIPHERAL IV DATA: Not applicable SIGNED BY: RT Elinor(R) January 19, 2021 4:56 PM documented in this encounterWayne Hospital05-23-2018 History of Past illness Narrative* Problem [...] of this encounter (statuses as of 07/20/2021) [facility] Narrative* Problem [...] of this encounter (statuses as of 12/18/2021) [facility] Narrative* Problem [...] of this encounter (statuses as of 01/04/2022) [facility] Narrative* Problem [...] of this encounter (statuses as of 01/20/2022) [facility] Narrative* Problem [...] of this encounter (statuses as of 07/22/2022) [facility] Narrative* Problem [...] of this encounter (statuses as of 08/18/2022) [facility] Narrative* Problem [...] of this encounter (statuses as of 10/21/2022) [facility] Narrative* Problem [...] of this encounter (statuses as of 12/11/2022) [facility] Narrative* Problem [...] of this encounter (statuses as of 12/23/2022) [facility] Narrative* Problem [...] of this encounter (statuses as of 12/29/2022) [facility] Narrative* Problem [...] of this encounter (statuses as of 01/06/2023) [facility] Narrative* Problem [...] of this encounter (statuses as of 01/26/2023) [facility] Narrative* Problem [...] as of this encounter (statuses as of 05/02/2023) [facility] Narrative* Problem [...] as of this encounter (statuses as of 05/19/2023) [facility] Narrative* Problem [...] urination 02/02/2012 018 Frequency of urination 02/02/201212/29 Shauna 02/02/2012 03/02/2017 History of Malignant Neoplas m [...] as of this encounter (statuses as of 07/02/2023) [facility] Diagnosis Impaired fasting blood sugar- Primary Impaired fasting glucose Essential hypertension Unspecified essential hypertension Hyperlipidemia, unspecified hyperlipidemia type documented [facility] this encounter [facility]* Diagnosis Gastroesophageal reflux disease without esophagitis Esophageal reflux [facility]* Diagnosis BPH with obstruction/lower urinary tract symptoms Hypertrophy of prostate with urinary obstruction and other lower urinary tract symptoms (LUTS) [facility]* Diagnosis Primary cough headache- Primary Essential hypertension Unspecified essential hypertension Hyperlipidemia, unspecified hyperlipidemia type Impaired fasting blood sugar Impaired fasting glucose Allergic rhinitis, unspecified seasonality, unspecified trigger [facility]* Diagnosis Medicare annual wellness visit, subsequent- Primary Routine general medical examination at a health care facility Foot cramps Cramp of limb Cyst, dermoid, arm, right Impaired fasting blood sugar Impaired fasting glucose Abnormal lung sounds Abnormal chest sounds Heart murmur Undiagnosed cardiac murmurs Hyperlipidemia, unspecified hyperlipidemia type documented in this encounter [facility]* Diagnosis Onset Date Resolution Status Dyspnea on exertion acute Essential hypertension acute Mixed hyperlipidemia acute Nonrheumatic aortic (valve) stenosis acute [facility] Work Phone: Evaluation note* Diagnosis 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)- Primary Moderate aortic stenosis Aortic valve disorders Primary hypertension Unspecified essential hypertension Mixed hyperlipidemia Nonrheumatic aortic valve stenosis MARISOL (obstructive sleep apnea) Obstructive sleep apnea (adult) (pediatric) Family history of chronic ischemic heart disease 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) [facility]* Diagnosis 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) 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) [facility]* Diagnosis 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)- Primary Moderate aortic stenosis Aortic valve disorders Primary hypertension Unspecified essential hypertension Mixed hyperlipidemia MARISOL (obstructive sleep apnea) Obstructive sleep apnea (adult) (pediatric) documented [facility]* Diagnosis Atherosclerosis of hopland coronary artery of hopland heart without angina pectoris- Primary Essential hypertension Unspecified essential hypertension Hyperlipidemia, unspecified hyperlipidemia type Stented coronary artery Postsurgical percutaneous transluminal coronary angioplasty status documented in this encounter [facility]* Diagnosis Onset Date Resolution Status Dyspnea on exertion acute Essential hypertension acute Mixed hyperlipidemia acute Nonrheumatic aortic (valve) stenosis acute Decreased pulses in feet acu te Essential hypertension acute Mixed hyperlipidemia acute Nonrheumatic aortic (valve) stenosis acute Hx of heart artery stent res [facility] Work Phone: Evaluation note* Diagnosis Cervical pain Cervicalgia DDD (degenerative disc disease), lumbar Degeneration of lumbar or lumbosacral intervertebral disc [facility]* Diagnosis Nonintractable paroxysmal hemicrania, unspecified chronicity pattern- Primary Vision disturbance Unspecified visual disturbance Gastroesophageal reflux disease without esophagitis Esophageal reflux [facility]* Diagnosis Cervical pain- Primary Cervicalgia Nonintractable paroxysmal hemicrania, unspecified chronicity pattern Vision disturbance Unspecified visual disturbance Urinary frequency [facility]* Diagnosis Onset Date Resolution Status Dyspnea on exertion acute Essential hypertension acute Mixed hyperlipidemia acute Nonrheumatic aortic (valve) stenosis acute Decreased pulses in feet acu te Essential hypertension acute Mixed hyperlipidemia acute Nonrheumatic aortic (valve) stenosis acute Hx of heart artery stent res olved C7 radiculopathy acute Neck pain acute Right shoulder pain acute Temporal arteritis acute [facility] Work Phone: Evaluation note* Diagnosis BPH with obstruction/lower urinary tract symptoms Hypertrophy of prostate with urinary obstruction and other lower urinary tract symptoms (LUTS) [facility] this encounter [facility]* Diagnosis Onset Date Resolution Status Decreased pulses in feet acu te Essential hypertension acute Mixed hyperlipidemia acute Nonrheumatic aortic (valve) stenosis acute Hx of heart artery stent res olved C7 radiculopathy acute Neck pain acute Right shoulder pain acute Temporal arteritis acute [facility] Work Phone: Evaluation note* Diagnosis Claudication of left lower extremity (HCC)- Primary Peripheral vascular disease, unspecified Essential hypertension Unspecified essential hypertension Atherosclerosis of hopland coronary artery of hopland heart without angina pectoris Hyperlipidemia, unspecified hyperlipidemia type Hypoalbuminemia Other disorders of plasma protein metabolism Alkaline phosphatase elevation Other nonspecific abnormal serum enzyme levels Need for influenza vaccination Need for prophylactic vaccination and inoculation against influenza Need for COVID-19 vaccine Contusion of right forearm, initial encounter Cervical pain Cervicalgia [facility]* Diagnosis Onset Date Resolution Status C7 radiculopathy acute Neck pain acute Right shoulder pain acute Temporal arteritis acute Essential hypertension acute Mixed hyperlipidemia acute Nonrheumatic aortic (valve) stenosis acute Hx of heart artery stent res [facility] Work Phone: Evaluation note* Diagnosis Sinobronchitis- Primary Unspecified sinusitis (chronic) Hyperlipidemia, unspecified hyperlipidemia type Essential hypertension Unspecified essential hypertension [facility]* Diagnosis Onset Date Resolution Status Essential hypertension acute Mixed hyperlipidemia acute Nonrheumatic aortic (valve) stenosis acute Hx of heart artery stent res [facility] Work Phone: Evaluation note* Diagnosis Weight loss- Primary Loss of weight BPH with obstruction/lower urinary tract symptoms Hypertrophy of prostate with urinary obstruction and other lower urinary tract symptoms (LUTS) Cervical pain Cervicalgia Essential hypertension Unspecified essential hypertension Hyperlipidemia, unspecified hyperlipidemia type DDD (degenerative disc disease), lumbar Degeneration of lumbar or lumbosacral intervertebral disc Abnormal liver enzymes Other nonspecific abnormal serum enzyme levels Nodule of lower lobe of right lung documented in this encounter [facility] noteNo assessment information availableWMercy [facility] Work Phone: Evaluation note* Diagnosis Lytic bone lesions on xray- Primary Disorder of bone and cartilage, unspecified Pneumonitis Pneumonia, organism unspecified Myalgias Anemia, unspecified type Leukocytosis, unspecified type BPH with obstruction/lower urinary tract symptoms Hypertrophy of prostate with urinary obstruction and other lower urinary tract symptoms (LUTS) [facility]* Diagnosis Prostate cancer (HCC)- Primary Malignant neoplasm of prostate Lytic bone lesions on xray Disorder of bone and cartilage, unspecified Pneumonitis Pneumonia, organism unspecified Myalgias Anemia, unspecified type Leukocytosis, unspecified type documented in this encounter [facility]* Diagnosis Bronchospasm- Primary Acute bronchospasm Abnormal lung sounds Abnormal chest sounds Prostate cancer (HCC) Malignant neoplasm of prostate Lytic bone lesions on xray Disorder of bone and cartilage, unspecified [facility]* Diagnosis Lytic bone lesions on xray- Primary Disorder of bone and cartilage, unspecified Lytic bone lesions on xray Disorder of bone and cartilage, unspecified [facility]* Diagnosis Prostate cancer (HCC)- Primary Malignant neoplasm of prostate Prostate cancer metastatic to bone (HCC) [facility]* Diagnosis Prostate cancer (HCC)- Primary Malignant neoplasm of prostate [facility]* Diagnosis Prostate cancer (HCC)- Primary Malignant neoplasm of prostate documented [facility]* Diagnosis Prostate cancer (HCC)- Primary Malignant neoplasm of prostate Prostate cancer metastatic to bone (HCC) [facility]* Diagnosis Prostate cancer (HCC)- Primary Malignant neoplasm of prostate [facility]* Diagnosis Need for influenza vaccination- Primary Need for prophylactic vaccination and inoculation against influenza BPH with obstruction/lower urinary tract symptoms Hypertrophy of prostate with urinary obstruction and other lower urinary tract symptoms (LUTS) Impaired fasting blood sugar Impaired fasting glucose Abnormal lung sounds Abnormal chest sounds Hyperlipidemia, unspecified hyperlipidemia type Encounter for immunization Need for other specified prophylactic vaccination against single bacterial disease [facility] Acute pain of right shoulder Abnormal lung sounds Abnormal chest sounds [facility]* Diagnosis BPH with obstruction/lower urinary tract symptoms Hypertrophy of prostate with urinary obstruction and other lower urinary tract symptoms (LUTS) [facility]* Diagnosis Prostate cancer (HCC)- Primary Malignant neoplasm of prostate [facility] Diagnosis Prostate cancer (HCC)- Primary Malignant neoplasm of prostate Pain in joint of right shoulder Pain in joint, shoulder region Prostate cancer metastatic to bone (HCC) [facility] Diagnosis Prostate cancer (HCC) Malignant neoplasm of prostate Pain in joint of right shoulder Pain in joint, shoulder region Prostate cancer metastatic to bone (HCC) [facility]* Diagnosis BPH with obstruction/lower urinary tract symptoms Hypertrophy of prostate with urinary obstruction and other lower urinary tract symptoms (LUTS) [facility]* Diagnosis Prostate cancer (HCC)- Primary Malignant neoplasm of prostate [facility] Diagnosis Prostate cancer (HCC)- Primary Malignant neoplasm of prostate [facility]* Diagnosis Hyperlipidemia, unspecified hyperlipidemia type- Primary Impaired fasting blood sugar Impaired fasting glucose Gout, unspecified cause, unspecified chronicity, unspecified site [facility] Diagnosis Medicare annual wellness visit, subsequent- Primary Routine general medical examination at a health care facility Encounter for immunization Need for other specified prophylactic vaccination against single bacterial disease Essential hypertension Unspecified essential hypertension Screening for depression Encounter for screening examination for other mental health and behavioral disorders Hematomas Ecchymosis Other specified circulatory system disorders Leg edema, right Edema Abnormal gait Abnormality of gait Gout, unspecified cause, unspecified chronicity, unspecified site Coronary artery disease involving hopland coronary artery of hopland heart without angina pectoris Prostate cancer (HCC) Malignant neoplasm of prostate [facility] Diagnosis Prostate cancer (HCC)- Primary Malignant neoplasm of prostate [facility] Diagnosis Prostate cancer (HCC)- Primary Malignant neoplasm of prostate [facility]* Diagnosis Hematoma of left wrist- Primary [facility]* Diagnosis Abnormal gait Abnormality of gait [facility]* Diagnosis Subdural hematoma (HCC)- Primary Subdural hemorrhage documented in this encounter [facility] Dis[facility] instructionsAmbulatory Orders* Cardiology Location: None [facility] Work Phone: Hospital Discharge instructions Additional Instructions Your laboratory studies show your inflammatory markers to be elevated and your CT scan showed lesions to your bone concerning for potential cancer. Secondary to this follow- up with oncology to discuss further testing. Stop the tramadol and begin taking the oxycodone/Percocet for improved pain control. As your CT scan also questions developing pneumonia take the doxycycline as directed. Return to the ER should you have any further concernsWMer[facility] Work Phone: Reason for referral (narrative)* Outpatient Procedure (Routine) - Closed Specialty Diagnoses / Procedures Referred By Jessica cruz Referred To Contact [facility] Diagnoses Heart murmur Procedures ECG COMPLETE ECG ROUTINE ECG W/LEAST 12 LDS W/I&R Mariano Ocampo MD [address] [place] [address] [facility] [place] [address] [place] [id number] Referral ID Status Reason Start Date Expiration Date V isits Requested Visits Authorized [id number] Closed Auto-Generate d Referral 07/22/2022 07/22/2023 1 1 * Outpatient Procedure (Routine) - Authorized Specialty Diagnoses / Procedures Referred By Jessica cruz Referred To Contact [facility] Diagnoses Heart murmur Procedures ECHO ECHO TTHRC R-T 2D W/WOM-MODE COMPL SPEC&COLR D Mariano Ocampo MD [address] [place] [address] [facility] [address] [address] Referral ID Status Reason Start Date Expiration Date Visits Requested Visits Authorized [id number] Authorized Auto-Generat ed Referral 07/22/2022 07/22/2023 1 1 [facility] for referral (narrative)* Consultation (Routine) - Pending Review Specialty Diagnoses / Procedures Referred By Contact Referred To Contact Cardiac Rehabilitation / Cardiology Diagnoses 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 Procedures RI OFFICE/OUTPATIENT [facility] 60-74 MINUTES Liz Berger APRN - CONTRACT CLERK [address] [place] [address] [facility] [address] [place] [address] Referral ID Status Reason Start Date Expiration Date Visits Requested Visits Authorized [id number] Pending Review Specialty Services Required 09/21/2022 09/21/2023 1 1 T [facility] for referral (narrative)* Consultation (Routine) - Pending Review Specialty Diagnoses / Procedures Referred By Contac t Referred To Contact Cardiology Diagnoses 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) Procedures RI OFFICE/OUTPATIENT [facility] 60-74 MINUTES Alok Whitehead APRN - CNP [address] [place] [address] [address] Referral ID Status Reason Start Date Expiration Date Visits Requested Visits Authorized [id number] Pending Review Specialty Services Required 09/30/2022 09/30/2023 1 1 T [facility] for referral (narrative)* Diagnostic Procedure Only (Routine) - Authorized Specialty Diagnoses / Procedures Referred By Contac t Referred To Contact [facility] Diagnoses Alkaline phosphatase elevation Procedures US ABD RIGHT UPPER QUADRANT US ABDOMINAL REAL TIME W/IMAGE LIMITED Mariano Ocampo MD [address] [place] [address] [place] [address] Referral ID Status Reason Start Date Expiration Date Visits Requested Visits Authorized [id number] Authorized Auto-Generat ed Referral 02/24/2024 1 1 [facility] for referral (narrative)No reason for referral information [facility] Work Phone: Advance Directives No Advanced Directives Records FoundDocuments on File 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 Date 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 Advance Directive(s) 12/15/2015 11:15 AM Advance Directive Response Recorded Date/ Time Advance Directives on File No September 13, 2022 9:46am Advance Directives Yes September 13 9:46am Living Will Yes September 13, 2022 9 :46am Power of Art Teacher Yes September 13, 2022 9:46am Advance Directive Response Recorded Date/ Time Advance Directives on File No September 13, 2022 9:46am Advance Directives Yes September 13 9:46am Living Will No September 14, 2022 4 :10pm Power of Art Teacher No September 14, 2022 4:10pm Latest Code Status on File Code Status Date Activated Date Inactivated Comments Full Code 09/20/2022 8:46 AM 09/21/2022 2:04 PM Latest Code Status on File Code Status Date Activated Date Inactivated Comments Full Code 09/20/2022 8:46 AM 09/21/2022 2:04 PM Advance Directive Response Recorded Date/ Time Advance Directives on File No September 13, 2022 9:46am Advance Directives on File No Augus t 2022 1:37pm Advance Directives Yes September 13 9:46am Living Will Yes October 27 1:37pm Power of Art Teacher Yes October 27, 2 023 1:37pm Advance Directive Response Recorded Date/ Time Advance Directives on File No September 13, 2022 9:46am Advance Directives on File No Augus t 2022 1:37pm Name of Medical Power of Art Teacher December 06, 2022 8:42am Advance Directives Yes September 13 9:46am Living Will Yes December 06, 2022 8:42am Power of Art Teacher Yes November 8:42am Advance Directive Response Recorded Date/ Time Advance Directives on File No September 13, 2022 9:46am Advance Directives on File No Augus t 2022 1:37pm Name of Medical Power of Art Teacher December 06, 2022 8:42am Name of Medical Power of Art Teacher silke- January 03, 2023 5:07pm Advance Directives Yes September 13 9:46am Living Will Yes January 03 5:07pm Power of Art Teacher Yes January 03, 2023 5:07pm Advance Directive Response Recorded Date/ Time Advance Directives on File No Tracius t 2022 1:37pm Name of Medical Power of Art Teacher December 06, 2022 8:42am Name of Medical Power of Art Teacher silke- January 03, 2023 5:07pm Advance Directives Yes September 13 9:46am Living Will Yes January 03 5:07pm Power of Art Teacher Yes January 03, 2023 5:07pm Advance Directive Response Recorded Date/ Time Name of Medical Power of Art Teacher silke April 06, 2023 4:38am Advance Directives Yes September 13 8:46am Living Will Yes April 06 4:38am Power of Art Teacher Yes April 06, 2023 4:38am Name of Medical Power of Art Teacher silke- January 03, 2023 4:07pm Advance Directive Response Recorded Date/ Time Name of Medical Power of Art Teacher silke April 06, 2023 4:38am Advance Directives Yes September 13 8:46am Living Will Yes April 06 4:38am Power of Art Teacher Yes April 06, 2023 4:38am Advance Directive Response Recorded Date/ Time Name of Medical Power of Art Teacher silke April 06, 2023 5:38am Advance Directives Yes September 13 9:46am Living Will No July 21, 2023 11 :39pm Power of Art Teacher No July 21, 2023 11:39pm Advance Directive Response Recorded Date/ Time Advance Directives Yes September 13 9:46am Chief Complaint and Reason for Visit Chief Complaint Amb Documentation AORTIC STENOSIS / CARTAGENA ([place]AMPO) EORDERS NON RHEUMATIC AORTIC VALVE STENOSIS Reason for Visit Dyspnea on exertion Essential hypertension Mixed hyperlipidemia Nonrheumatic aortic (valve) stenosis Chief Complaint Amb Documentation AORTIC STENOSIS / CARTAGENA ([place]) EORDERS NON RHEUMATIC AORTIC VALVE STENOSIS OTHER Reason for Visit Dyspnea on exertion Essential hypertension Mixed hyperlipidemia Nonrheumatic aortic (valve) stenosis Chief Complaint Amb Documentation AORTIC STENOSIS / CARTAGENA ([place]AM[place]) EORDERS NON RHEUMATIC AORTIC VALVE STENOSIS OTHER LEFT ARM PAIN IV infiltratioh L arm post cath L.Lorson Reason for Visit Dyspnea on exertion Essential hypertension Mixed hyperlipidemia Nonrheumatic aortic (valve) stenosis Chief Complaint Amb Documentation AORTIC STENOSIS / CARTAGENA ([place]) EORDERS NON RHEUMATIC AORTIC VALVE STENOSIS OTHER LEFT ARM PAIN IV infiltratioh L arm post cath L.Lorson S/P [facility] STENT (SCANNED) Peripheral vascular disease, unspecified TAVR @ [facility] tavr pci with coronary stent Reason for Visit Dyspnea on exertion Essential hypertension Mixed hyperlipidemia Nonrheumatic aortic (valve) stenosis Decreased pulses in feet Essential hypertension Mixed hyperlipidemia Nonrheumatic aortic (valve) stenosis Hx of heart artery stent Chief Complaint Amb Documentation AORTIC STENOSIS / CARTAGENA ([place]AMPO) EORDERS NON RHEUMATIC AORTIC VALVE STENOSIS OTHER LEFT ARM PAIN IV infiltratioh L arm post cath L.Lorson S/P [facility] STENT (SCANNED) Peripheral vascular disease, unspecified TAVR @ [facility] tavr pci with coronary stent tavr pci with coronary stent chest pain Reason for Visit Dyspnea on exertion Essential hypertension Mixed hyperlipidemia Nonrheumatic aortic (valve) stenosis Decreased pulses in feet Essential hypertension Mixed hyperlipidemia Nonrheumatic aortic (valve) stenosis Hx of heart artery stent Chief Complaint Amb Documentation AORTIC STENOSIS / CARTAGENA ([place]AMPO) EORDERS NON RHEUMATIC AORTIC VALVE STENOSIS OTHER LEFT ARM PAIN IV infiltratioh L arm post cath L.Lorson S/P [facility] STENT (SCANNED) Peripheral vascular disease, unspecified TAVR @ [facility] tavr pci with coronary stent chest pain tavr pci with coronary stent Reason for Visit Dyspnea on exertion Essential hypertension Mixed hyperlipidemia Nonrheumatic aortic (valve) stenosis Decreased pulses in feet Essential hypertension Mixed hyperlipidemia Nonrheumatic aortic (valve) stenosis Hx of heart artery stent Chief Complaint AORTIC STENOSIS / DO E ([place]) EORDERS NON RHEUMATIC AORTIC VALVE STENOSIS OTHER LEFT ARM PAIN IV infiltratioh L arm post cath L.Lorson S/P [facility] STENT (SCANNED) Peripheral vascular disease, unspecified TAVR @ [facility] tavr pci with coronary stent chest pain tavr pci with coronary stent Cervical spine RM 2 TEMPORAL ARTERY BIOPSY tavr pci with coronary stent nosebleed Reason for Visit Dyspnea on exertion Essential hypertension Mixed hyperlipidemia Nonrheumatic aortic (valve) stenosis Decreased pulses in feet Essential hypertension Mixed hyperlipidemia Nonrheumatic aortic (valve) stenosis Hx of heart artery stent C7 radiculopathy Neck pain Right shoulder pain Temporal arteritis Chief Complaint OTHER LEFT ARM PAIN IV infiltratioh L arm post cath [facility] Peripheral vascular disease, unspecified TAVR @ [facility] tavr pci with coronary stent chest pain tavr pci with coronary stent Cervical spine RM 2 TEMPORAL ARTERY BIOPSY nosebleed tavr pci with coronary stent Reason for Visit Decreased pulses in feet Essential hypertension Mixed hyperlipidemia Nonrheumatic aortic (valve) stenosis Hx of heart artery stent C7 radiculopathy Neck pain Right shoulder pain Temporal arteritis Chief Complaint tavr pci with garcia ry stent Cervical spine RM 2 TEMPORAL ARTERY BIOPSY nosebleed tavr pci with coronary stent Radiculopathy, cervical region tavr pci with coronary stent 3 M FU chest pain Reason for Visit C7 radiculopathy Neck pain Right shoulder pain Temporal arteritis Essential hypertension Mixed hyperlipidemia Nonrheumatic aortic (valve) stenosis Hx of heart artery stent Chief Complaint Radiculopathy, cervi candy region tavr pci with coronary stent 3 M FU chest pain Reason for Visit Essential hypertensi on Mixed hyperlipidemia Nonrheumatic aortic (valve) stenosis Hx of heart artery stent Chief Complaint chest pain PAIN FROM NECK DOWN Chief Complaint Admit Date 6 M FU August 07, 2024 8:59a m Reason for Visit Admit Date Dizziness August 07, 2024 8:59a m Fatigue August 07, 2024 8:59a m CAD (coronary artery disease) August 07, 2024 8:59am Essential hypertension August 07, 2024 8: 59am Mixed hyperlipidemia August 07, 2024 8:59 am Nonrheumatic aortic (valve) stenosis August 07, 2024 8:59am Hx of heart artery stent August 07, 2024 8:59am Family History No Family History Records Found Relationship Condition Age at Onset Recorded Date/T codie father Myocardial infarction 60 brother Cardiac disease Unknown sister Cardiac disease Unknown Summary Purpose Reason for Referral Specialty Diagnoses / Procedures Referred By Contac t Referred To Contact Ophthalmology Diagnoses Nonintractable paroxysmal hemicrania, unspecified chronicity pattern Vision disturbance Procedures CONSULT TO OPHTHALMOLOGY Mariano Ocampo MD [address] [place] [address] Referral ID Status Reason Start Date Expiration Date Visits Requested Visits Authorized [id number] Ref Not Required PCP Requested Referral 3 12/22/2023 1 1 Specialty Diagnoses / Procedures Referred By Contac t Referred To Contact CT IMAGING Diagnoses Lytic bone lesions on xray Pneumonitis Procedures CT CHEST WO IVCON DIAGNOSTIC COMPUTED TOMOGRAPHY THORAX W/O CNTRST Mariano Ocampo MD [address] [place] [address] Ct Imaging [facility] Referral ID Status Reason Start Date Expiration Date Visits Requested Visits Authorized [id number] Pending Review Auto-Generat ed Referral 07/25/2023 08/23/2024 1 1 Specialty Diagnoses / Procedures Referred By Contac t Referred To Contact Oncology Diagnoses Lytic bone lesions on xray Pneumonitis Myalgias Anemia, unspecified type Leukocytosis, unspecified type Procedures CONSULT TO ONCOLOGY OFFICE/OUTPATIENT [facility] 60 MINUTES Mariano Ocampo MD [address] [place] [address] Referral ID Status Reason Start Date Expiration Date Visits Requested Visits Authorized [id number] Authorized PCP Requested Referral 07/25/2023 07/24/2024 1 1 Specialty Diagnoses / Procedures Referred By Contac t Referred To Contact Diagnoses Prostate cancer (HCC) Procedures CONSULT TO MEDICAL GENETICS - CANCER MEDICAL GENETICS COUNSELING EACH 30 [place] [address] [place] [address] [facility] [address] [place] [address] Referral ID Status Reason Start Date Expiration Date Visits Requested Visits Authorized [id number] Authorized PCP Requested Referral Auto-Generate d Referral 07/29/2023 07/28/2024 1 1 Specialty Diagnoses / Procedures Referred By Contac t Referred To Contact MOLECULAR & FUNCTIONAL IMAGING Diagnoses Lytic bone lesions on xray Prostate cancer (HCC) Procedures NM PET/CT PROSTATE WHOLE BODY IMAGING PET IMAGING CT ATTENUATION [place] [address] [place] [address] Molecular & Functional Imaging [address] [id number] Referral ID Status Reason Start Date Expiration Date Visits Requested Visits Authorized [id number] Authorized Auto-Generat ed Referral 07/29/2023 08/27/2024 1 1 Specialty Diagnoses / Procedures Referred By Contac t Referred To Contact MR IMAGING Diagnoses Prostate cancer (HCC) Pain in joint of right shoulder Prostate cancer metastatic to bone (HCC) Procedures MRI SHOULDER WO IVCON RIGHT MRI ANY JT UPPER EXTREMITY W/O CONTRAST Jazmyn Raymundo [address] [place] [address] [facility] [place] [address] Referral ID Status Reason Start Date Expiration Date Visits Requested Visits Authorized [id number] Authorized Auto-Generat ed Referral 02/16/2024 03/17/2025 1 1 Referral ID Status Reason Start Date Expiration Date V isits Requested Visits Authorized [id number] Closed Auto-Generate d Referral 02/16/2024 03/17/2025 1 1 Additional Source Comments Source Comments (unrecognize d section and content) In the event this informatio n is protected by the Federal Confidentiality of Alcohol and Drug Abuse Patient Records regulations: The Federal rules restrict any use of the information to criminally investigate or prosecute any alcohol or drug abuse patient.[facility] the event this information is protected by the Federal Confidentiality of Alcohol and Drug Abuse Patient Records regulations: The Federal rules restrict any use of the information to criminally investigate or prosecute any alcohol or drug abuse patient.[facility] HospitalIn the event this information is protected by the Federal Confidentiality of Alcohol and Drug Abuse Patient Records regulations: The Federal rules restrict any use of the information to criminally investigate or prosecute any alcohol or drug abuse patient.[facility] HospitalIn the event this information is protected by the Federal Confidentiality of Alcohol and Drug Abuse Patient Records regulations: The Federal rules restrict any use of the information to criminally investigate or prosecute any alcohol or drug abuse patient.[facility] HospitalIn the event this information is protected by the Federal Confidentiality of Alcohol and Drug Abuse Patient Records regulations: The Federal rules restrict any use of the information to criminally investigate or prosecute any alcohol or drug abuse patient.[facility] HospitalIn the event this information is protected by the Federal Confidentiality of Alcohol and Drug Abuse Patient Records regulations: The Federal rules restrict any use of the information to criminally investigate or prosecute any alcohol or drug abuse patient.[facility] HospitalIn the event this information is protected by the Federal Confidentiality of Alcohol and Drug Abuse Patient Records regulations: The Federal rules restrict any use of the information to criminally investigate or prosecute any alcohol or drug abuse patient.[facility] HospitalIn the event this information is protected by the Federal Confidentiality of Alcohol and Drug Abuse Patient Records regulations: The Federal rules restrict any use of the information to criminally investigate or prosecute any alcohol or drug abuse patient.[facility] HospitalIn the event this information is protected by the Federal Confidentiality of Alcohol and Drug Abuse Patient Records regulations: The Federal rules restrict any use of the information to criminally investigate or prosecute any alcohol or drug abuse patient.[facility] HospitalIn the event this information is protected by the Federal Confidentiality of Alcohol and Drug Abuse Patient Records regulations: The Federal rules restrict any use of the information to criminally investigate or prosecute any alcohol or drug abuse patient.[facility] HospitalIn the event this information is protected by the Federal Confidentiality of Alcohol and Drug Abuse Patient Records regulations: The Federal rules restrict any use of the information to criminally investigate or prosecute any alcohol or drug abuse patient.[facility] HospitalIn the event this information is protected by the Federal Confidentiality of Alcohol and Drug Abuse Patient Records regulations: The Federal rules restrict any use of the information to criminally investigate or prosecute any alcohol or drug abuse patient.[facility] HospitalIn the event this information is protected by the Federal Confidentiality of Alcohol and Drug Abuse Patient Records regulations: The Federal rules restrict any use of the information to criminally investigate or prosecute any alcohol or drug abuse patient.[facility] HospitalIn the event this information is protected by the Federal Confidentiality of Alcohol and Drug Abuse Patient Records regulations: The Federal rules restrict any use of the information to criminally investigate or prosecute any alcohol or drug abuse patient.[facility] HospitalIn the event this information is protected by the Federal Confidentiality of Alcohol and Drug Abuse Patient Records regulations: The Federal rules restrict any use of the information to criminally investigate or prosecute any alcohol or drug abuse patient.[facility] HospitalIn the event this information is protected by the Federal Confidentiality of Alcohol and Drug Abuse Patient Records regulations: The Federal rules restrict any use of the information to criminally investigate or prosecute any alcohol or drug abuse patient.[facility] HospitalIn the event this information is protected by the Federal Confidentiality of Alcohol and Drug Abuse Patient Records regulations: The Federal rules restrict any use of the information to criminally investigate or prosecute any alcohol or drug abuse patient.[facility] HospitalIn the event this information is protected by the Federal Confidentiality of Alcohol and Drug Abuse Patient Records regulations: The Federal rules restrict any use of the information to criminally investigate or prosecute any alcohol or drug abuse patient.[facility] HospitalIn the event this information is protected by the Federal Confidentiality of Alcohol and Drug Abuse Patient Records regulations: The Federal rules restrict any use of the information to criminally investigate or prosecute any alcohol or drug abuse patient.[facility] HospitalIn the event this information is protected by the Federal Confidentiality of Alcohol and Drug Abuse Patient Records regulations: The Federal rules restrict any use of the information to criminally investigate or prosecute any alcohol or drug abuse patient.[facility] HospitalIn the event this information is protected by the Federal Confidentiality of Alcohol and Drug Abuse Patient Records regulations: The Federal rules restrict any use of the information to criminally investigate or prosecute any alcohol or drug abuse patient.[facility] HospitalIn the event this information is protected by the Federal Confidentiality of Alcohol and Drug Abuse Patient Records regulations: The Federal rules restrict any use of the information to criminally investigate or prosecute any alcohol or drug abuse patient.[facility] HospitalIn the event this information is protected by the Federal Confidentiality of Alcohol and Drug Abuse Patient Records regulations: The Federal rules restrict any use of the information to criminally investigate or prosecute any alcohol or drug abuse patient.[facility] HospitalIn the event this information is protected by the Federal Confidentiality of Alcohol and Drug Abuse Patient Records regulations: The Federal rules restrict any use of the information to criminally investigate or prosecute any alcohol or drug abuse patient.[facility] HospitalIn the event this information is protected by the Federal Confidentiality of Alcohol and Drug Abuse Patient Records regulations: The Federal rules restrict any use of the information to criminally investigate or prosecute any alcohol or drug abuse patient.[facility] HospitalIn the event this information is protected by the Federal Confidentiality of Alcohol and Drug Abuse Patient Records regulations: The Federal rules restrict any use of the information to criminally investigate or prosecute any alcohol or drug abuse patient.[facility] HospitalIn the event this information is protected by the Federal Confidentiality of Alcohol and Drug Abuse Patient Records regulations: The Federal rules restrict any use of the information to criminally investigate or prosecute any alcohol or drug abuse patient.[facility] HospitalIn the event this information is protected by the Federal Confidentiality of Alcohol and Drug Abuse Patient Records regulations: The Federal rules restrict any use of the information to criminally investigate or prosecute any alcohol or drug abuse patient.[facility] HospitalIn the event this information is protected by the Federal Confidentiality of Alcohol and Drug Abuse Patient Records regulations: The Federal rules restrict any use of the information to criminally investigate or prosecute any alcohol or drug abuse patient.[facility] HospitalIn the event this information is protected by the Federal Confidentiality of Alcohol and Drug Abuse Patient Records regulations: The Federal rules restrict any use of the information to criminally investigate or prosecute any alcohol or drug abuse patient.[facility] HospitalIn the event this information is protected by the Federal Confidentiality of Alcohol and Drug Abuse Patient Records regulations: The Federal rules restrict any use of the information to criminally investigate or prosecute any alcohol or drug abuse patient.[facility] HospitalIn the event this information is protected by the Federal Confidentiality of Alcohol and Drug Abuse Patient Records regulations: The Federal rules restrict any use of the information to criminally investigate or prosecute any alcohol or drug abuse patient.[facility] HospitalIn the event this information is protected by the Federal Confidentiality of Alcohol and Drug Abuse Patient Records regulations: The Federal rules restrict any use of the information to criminally investigate or prosecute any alcohol or drug abuse patient.[facility] HospitalIn the event this information is protected by the Federal Confidentiality of Alcohol and Drug Abuse Patient Records regulations: The Federal rules restrict any use of the information to criminally investigate or prosecute any alcohol or drug abuse patient.[facility] HospitalIn the event this information is protected by the Federal Confidentiality of Alcohol and Drug Abuse Patient Records regulations: The Federal rules restrict any use of the information to criminally investigate or prosecute any alcohol or drug abuse patient.[facility] HospitalIn the event this information is protected by the Federal Confidentiality of Alcohol and Drug Abuse Patient Records regulations: The Federal rules restrict any use of the information to criminally investigate or prosecute any alcohol or drug abuse patient.[facility] HospitalIn the event this information is protected by the Federal Confidentiality of Alcohol and Drug Abuse Patient Records regulations: The Federal rules restrict any use of the information to criminally investigate or prosecute any alcohol or drug abuse patient.[facility] HospitalIn the event this information is protected by the Federal Confidentiality of Alcohol and Drug Abuse Patient Records regulations: The Federal rules restrict any use of the information to criminally investigate or prosecute any alcohol or drug abuse patient.[facility] HospitalIn the event this information is protected by the Federal Confidentiality of Alcohol and Drug Abuse Patient Records regulations: The Federal rules restrict any use of the information to criminally investigate or prosecute any alcohol or drug abuse patient.[facility] HospitalIn the event this information is protected by the Federal Confidentiality of Alcohol and Drug Abuse Patient Records regulations: The Federal rules restrict any use of the information to criminally investigate or prosecute any alcohol or drug abuse patient.[facility] HospitalIn the event this information is protected by the Federal Confidentiality of Alcohol and Drug Abuse Patient Records regulations: The Federal rules restrict any use of the information to criminally investigate or prosecute any alcohol or drug abuse patient.[facility] HospitalIn the event this information is protected by the Federal Confidentiality of Alcohol and Drug Abuse Patient Records regulations: The Federal rules restrict any use of the information to criminally investigate or prosecute any alcohol or drug abuse patient.[facility] HospitalIn the event this information is protected by the Federal Confidentiality of Alcohol and Drug Abuse Patient Records regulations: The Federal rules restrict any use of the information to criminally investigate or prosecute any alcohol or drug abuse patient.[facility] HospitalIn the event this information is protected by the Federal Confidentiality of Alcohol and Drug Abuse Patient Records regulations: The Federal rules restrict any use of the information to criminally investigate or prosecute any alcohol or drug abuse patient.[facility] HospitalIn the event this information is protected by the Federal Confidentiality of Alcohol and Drug Abuse Patient Records regulations: The Federal rules restrict any use of the information to criminally investigate or prosecute any alcohol or drug abuse patient.[facility] HospitalIn the event this information is protected by the Federal Confidentiality of Alcohol and Drug Abuse Patient Records regulations: The Federal rules restrict any use of the information to criminally investigate or prosecute any alcohol or drug abuse patient.[facility] HospitalIn the event this information is protected by the Federal Confidentiality of Alcohol and Drug Abuse Patient Records regulations: The Federal rules restrict any use of the information to criminally investigate or prosecute any alcohol or drug abuse patient.[facility] HospitalIn the event this information is protected by the Federal Confidentiality of Alcohol and Drug Abuse Patient Records regulations: The Federal rules restrict any use of the information to criminally investigate or prosecute any alcohol or drug abuse patient.[facility] HospitalIn the event this information is protected by the Federal Confidentiality of Alcohol and Drug Abuse Patient Records regulations: The Federal rules restrict any use of the information to criminally investigate or prosecute any alcohol or drug abuse patient.[facility] HospitalIn the event this information is protected by the Federal Confidentiality of Alcohol and Drug Abuse Patient Records regulations: The Federal rules restrict any use of the information to criminally investigate or prosecute any alcohol or drug abuse patient.[facility] HospitalIn the event this information is protected by the Federal Confidentiality of Alcohol and Drug Abuse Patient Records regulations: The Federal rules restrict any use of the information to criminally investigate or prosecute any alcohol or drug abuse patient.[facility] HospitalIn the event this information is protected by the Federal Confidentiality of Alcohol and Drug Abuse Patient Records regulations: The Federal rules restrict any use of the information to criminally investigate or prosecute any alcohol or drug abuse patient.[facility] HospitalIn the event this information is protected by the Federal Confidentiality of Alcohol and Drug Abuse Patient Records regulations: The Federal rules restrict any use of the information to criminally investigate or prosecute any alcohol or drug abuse patient.[facility] HospitalIn the event this information is protected by the Federal Confidentiality of Alcohol and Drug Abuse Patient Records regulations: The Federal rules restrict any use of the information to criminally investigate or prosecute any alcohol or drug abuse patient.[facility] HospitalIn the event this information is protected by the Federal Confidentiality of Alcohol and Drug Abuse Patient Records regulations: The Federal rules restrict any use of the information to criminally investigate or prosecute any alcohol or drug abuse patient.[facility] HospitalIn the event this information is protected by the Federal Confidentiality of Alcohol and Drug Abuse Patient Records regulations: The Federal rules restrict any use of the information to criminally investigate or prosecute any alcohol or drug abuse patient.[facility] HospitalIn the event this information is protected by the Federal Confidentiality of Alcohol and Drug Abuse Patient Records regulations: The Federal rules restrict any use of the information to criminally investigate or prosecute any alcohol or drug abuse patient.[facility] HospitalIn the event this information is protected by the Federal Confidentiality of Alcohol and Drug Abuse Patient Records regulations: The Federal rules restrict any use of the information to criminally investigate or prosecute any alcohol or drug abuse patient.[facility] HospitalIn the event this information is protected by the Federal Confidentiality of Alcohol and Drug Abuse Patient Records regulations: The Federal rules restrict any use of the information to criminally investigate or prosecute any alcohol or drug abuse patient.[facility] HospitalIn the event this information is protected by the Federal Confidentiality of Alcohol and Drug Abuse Patient Records regulations: The Federal rules restrict any use of the information to criminally investigate or prosecute any alcohol or drug abuse patient.[facility] HospitalIn the event this information is protected by the Federal Confidentiality of Alcohol and Drug Abuse Patient Records regulations: The Federal rules restrict any use of the information to criminally investigate or prosecute any alcohol or drug abuse patient.[facility] Reason for Visit (unrecogniz ed section and content) Reason Comments Chemotherapy Treatment Specialty Diagnoses / Procedures Referred By Contac t Referred To Contact Diagnoses Prostate cancer (HCC) Procedures INJECTION, ZOLEDRONIC ACID, 1 [place] [address] [id number] Phone: tel: fax: Hematology/Oncology [address] [place] [address] Phone: tel: fax: Referral ID Status Reason Start Date Expiration Date V isits Requested Visits Authorized [id number] Authorized 10/13/2023 03/13/2025 99 99 Reason Comments Non-Chemotherapy Treatment Specialty Diagnoses / Procedures Referred By Contac t Referred To Contact Diagnoses Prostate cancer (HCC) Procedures INJECTION, ZOLEDRONIC ACID, 1 [place] [address] [place] [address] [facility] [address] [place] [address] Referral ID Status Reason Start Date Expiration Date V isits Requested Visits Authorized [id number] Authorized 10/13/2023 03/13/2024 99 99 Reason Comments Established Patient Reason Comments F/U 6 months Reason Onset Date Comments Refill Request 12/18/2021 Reason Comments Refill Request Reason Comments Annual Medicare Wellness F/U 6 months Reason Comments Results Reason Comments New Patient Consult for PCI Shortness of Breath Chest Pain Specialty Diagnoses / Procedures Referred By Contac t Referred To Contact Cardiology Diagnoses Atherosclerotic heart disease of [place] coronary artery without angina pectoris Procedures RI OFFICE/OP CONSLTJ NEW/EST PT MOD MDM 40 MINUTES Gerard, [place] [address] [place] [address] Clayton Ayon MD [address] [place] [address] Referral ID Status Reason Start Date Expiration Date Visits Re quested Visits Authorized [id number] Closed 09/16/2022 09/17/2023 1 1 Specialty Diagnoses / Procedures Referred By Contac t Referred To Contact Diagnoses 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) [I25.118] Procedures Angioplasty - coronary Clayton Ayon MD [address] [place] [address] [facility] Cardiac Cath/Ep Lab [address] [place] [phone] Referral ID Status Reason Start Date Expiration Date Visits Re quested Visits Authorized [id number] 1 1 Reason Comments Coronary Artery Disease S/p multivessel PCI Reason Onset Date Comments Procedure 09/16/2022 PCI schedule Reason Onset Date Comments Refill Request 12/10/2022 Reason Comments Consult Reason Comments Follow Up For General surgeon, ort ho & opthalmologist office visit; Prednisone refill Reason Onset Date Comments Refill Request 01/06/2023 Reason Onset Date Comments F/U 6 months Immunizations 01/25/2023 Flu vaccination Multiple Concerns Reason Comments Nasal Congestion Reason Comments 6 week follow-up Reason Comments Future Appointment Reason Comments ER F/U Reason Comments New Patient Evaluation Specialty Diagnoses / Procedures Referred By Contac t Referred To Contact Oncology Diagnoses Lytic bone lesions on xray Pneumonitis Myalgias Anemia, unspecified type Leukocytosis, unspecified type Procedures CONSULT TO ONCOLOGY OFFICE/OUTPATIENT NEW HIGH MDM 60 MINUTES Mariano Ocampo MD [address] [place] [address] Referral ID Status Reason Start Date Expiration Date V isits Requested Visits Authorized [id number] Closed PCP Requested Referral 07/25/2023 07/24/2024 1 1 Reason Comments Radiology NM Reason Comments Recheck Reason Comments AVS 07/29/23 Reason Comments Benefits Investigation Reason Comments Imm/Inj Specialty Diagnoses / Procedures Referred By Contac t Referred To Contact Diagnoses Prostate cancer (HCC) Procedures [place] [address] [place] [address] [facility] [address] [place] [address] Referral ID Status Reason Start Date Expiration Date V isits Requested Visits Authorized [id number] Authorized 08/02/2023 08/01/2024 99 99 Reason Onset Date Comments Refill Request 09/28/2023 Reason Comments Patient Update Reason Onset Date Comments Refill Request 11/11/2023 Reason Comments Orders Reason Onset Date Comments F/U 3 Month Immunizations 12/01/2023 Flu vaccination Reason Comments Med Change Request Reason Onset Date Comments Refill Request 01/20/2024 Reason Comments Established Patient Specialty Diagnoses / Procedures Referred By Contac t Referred To Contact Diagnoses Prostate cancer (HCC) Procedures INJECTION, ZOLEDRONIC ACID, 1 [place] [address] [place] [address] [facility] [address] [place] [address] Specialty Diagnoses / Procedures Referred By Contac t Referred To Contact MR IMAGING Diagnoses Prostate cancer (HCC) Pain in joint of right shoulder Prostate cancer metastatic to bone (HCC) Procedures MRI SHOULDER WO IVCON RIGHT MRI ANY JT UPPER EXTREMITY W/O CONTRAST Jazmyn Ray[place] [address] [place] [address] Referral ID Status Reason Start Date Expiration Date V isits Requested Visits Authorized [id number] Closed Auto-Generate d Referral 02/16/2024 03/17/2025 1 1 Reason Onset Date Comments Refill Request 05/03/2024 Reason Onset Date Comments SPP Oral Oncology/hematology - Treatment Referra l 05/10/2024 Xtandi 40 mg Insurance Authorization 05/10/2024 Pending PA Reason Comments Manager Garage - Other Medication Ques tion Reason Comments Care Coordination ORAL ANTI-CANCER AGE NTS EDUCATION Reason Comments Care Coordination ORAL ANTI-CANCER AGE NTS FOLLOW-UP PHONE CALL Reason Comments Medicare Wellness Exam F/U 6 months Reason Onset Date Comments SPP Oral Oncology/hematology - Medication Refill 06/11/2024 Xtandi Reason Onset Date Comments Res Counselor- Other 07/03/2024 CDM chart review Reason Onset Date Comments SPP Oral Oncology/hematology - Medication Refill 07/13/2024 Xtandi Reason Comments lump on left wrist and hand Just noticed it-had a CT today and started after that Reason Comments Radiology CT Specialty Diagnoses / Procedures Referred By Jessica cruz Referred To Contact CT IMAGING Diagnoses Abnormal gait Procedures CT BRAIN WO IVCON CT HEAD/BRAIN W/O CONTRAST MATERIAL Mariano Ocampo MD [address] [place] [address] Phone: tel: fax: CT IMAGING [facility] Referral ID Status Reason Start Date Expiration Date V isits Requested Visits Authorized [id number] Closed Auto-Generate d Referral 06/05/2024 07/05/2025 1 1 Reason Comments fax copy of CT brain results to [facility] Reason Onset Date Comments SPP Oral Oncology/hematology - Medication Refill 08/21/2024 Xtandi Care Teams (unrecognized sec tion and content) Learning Consultant Relationship Specialty Start Date End Date Mariano Ocampo MD [address] [place], [place] [id number] [phone] PCP - General 05/19/09 Learning Consultant Relationship Specialty Start Date End Date Mariano Ocampo MD [address] [place] [address] PCP - General 05/19/09 Learning Consultant Relationship Specialty Start Date End Date Mariano Ocampo MD [address] [place] [address] PCP - General 05/19/09 Learning Consultant Relationship Specialty Start Date End Date Mariano Ocampo MD [address] [place] [address] PCP - General 05/19/09 Learning Consultant Relationship Specialty Start Date End Date Mariano Ocampo MD [address] [place] [address] PCP - General 05/19/09 Learning Consultant Relationship Specialty Start Date End Date Mariano Ocampo MD [address] [place] [address] PCP - General 05/19/09 Team Status: Active Member Role Status Dates Dr. Mariano Ocapmo MD Family Provider Active Dr. Mariano Ocampo MD Primary Care Provider Active Team Status: Inactive Member Role Status Dates Dr. Mariano Ocampo MD Primary Care Provider, Refer ring Provider Active Dr. Jasper Gee MD Attending Provider Active Team Status: Active Member Role Status Dates Dr. Mariano Ocampo MD Primary Care Provider Active Barry Amin Attending Provider Active Team Status: Active Member Role Status Dates Dr. Mariano Ocampo MD Primary Care Provider Active Dr. Jasper Gee MD Attending Provider Active Team Status: Active Member Role Status Dates Dr. Mariano Ocampo MD Primary Care Provider Active Dr. Jasper Gee MD Attending Provider, Referring Pro vider Active Team Status: Inactive Member Role Status Dates Dr. Mariano Ocampo MD Primary Care Provider Active Dr. Jasper Gee MD Attending Provider, Referring Pro vider Active Team Status: Inactive Member Role Status Dates Dr. Mariano Ocampo MD Primary Care Provider Active Dr. Bryce Mina DO Emergency Provider Active Learning Consultant Relationship Specialty Start Date End Date Mariano Ocampo [address] [place] [address] PCP - General Internal Medicine 09/16/22 Team Status: Active Member Role Status Dates Dr. Mariano Ocampo MD Primary Care Provider Active Dr. Fili Kiser MD Attending Provider Active Team Status: Inactive Member Role Status Dates Dr. Mariano Ocampo MD Primary Care Provider Active Dr. Bryce Mina DO Attending Provider, Emergency Provider Active Team Status: Inactive Member Role Status Dates Dr. Mariano Ocampo MD Primary Care Provider Active Dr. Bryce Mina DO Attending Provider, Referring Provider Active Learning Consultant Relationship Specialty Start Date End Date Mariano Ocampo [address] [place] [address] PCP - General Internal Medicine 09/16/22 Learning Consultant Relationship Specialty Start Date End Date Mariano Ocampo [address] [place] [address] PCP - General Internal Medicine 09/16/22 Learning Consultant Relationship Specialty Start Date End Date Mariano Ocampo [address] [place] [address] PCP - General Internal Medicine 09/16/22 Learning Consultant Relationship Specialty Start Date End Date Mariano Ocampo [address] [place] [address] PCP - General Internal Medicine 09/16/22 Learning Consultant Relationship Specialty Start Date End Date Mariano Ocampo [address] [place] [address] PCP - General Internal Medicine 09/16/22 Learning Consultant Relationship Specialty Start Date End Date Mariano Ocampo [address] [place] [address] PCP - General Internal Medicine 09/16/22 Learning Consultant Relationship Specialty Start Date End Date Mariano Ocampo MD [address] [place], [place] [address] PCP - General 05/19/09 Team Status: Active Member Role Status Dates Dr. Mariano Ocampo MD Primary Care Provider Active Dr. Fili Kiser MD Attending Provider Active Dr. Bryce Mina DO Referring Provider Active Team Status: Inactive Member Role Status Dates Dr. Mariano Ocampo MD Primary Care Provider, Refer ring Provider Active Barry DELGADO, PA Attending Provider Active Team Status: Active Member Role Status Dates Dr. Mariano Ocampo MD Primary Care Provider Active Dr. Jasper Gee MD Other Provider Active Dr. Clayton Ayon MD Attending Provider, Referring Pr ovider Active Team Status: Inactive Member Role Status Dates Dr. Mariano Ocampo MD Primary Care Provider Active Barry DELGADO PA Attending Provider, Referr ing Provider Active Team Status: Active Member Role Status Dates Dr. Mariano Ocampo MD Primary Care Provider Active Dr. Fili Kiser MD Attending Provider Active Barry DELGADO, [place] Referring Provider Active Team Status: Inactive Member Role Status Dates Dr. Mariano Ocampo MD Primary Care Provider Active Dr. Jasper Gee MD Other Provider Active Dr. Clayton Ayon MD Attending Provider, Referring Pr ovider Active Team Status: Inactive Member Role Status Dates Dr. Mariano Ocampo MD Primary Care Provider Active Hernán Spence MD Emergency Provider Active Learning Consultant Relationship Specialty Start Date End Date Mariano Ocampo MD [address] [place] [address] PCP - General 05/19/09 Team Status: Inactive Member Role Status Dates Dr. Mariano Ocampo MD Primary Care Provider Active Hernán Spence MD Attending Provider, Emergency Provid er Active Team Status: Active Member Role Status Dates Dr. Mariano Ocampo MD Primary Care P rovider, Attending Provider, Referring Provider Active Learning Consultant Relationship Specialty Start Date End Date Mariano Ocampo MD [address] [place] [address] PCP - General 05/19/09 Team Status: Inactive Member Role Status Dates Dr. Mariano Ocampo MD Primary Care Provider, Refer ring Provider Active Dr. Anthony Poe DO Attending Provider Active Team Status: Inactive Member Role Status Dates Dr. Mariano Ocampo MD Primary Care Provider, Refer ring Provider Active Dr. Hieu Osorio MD Attending Provider Active Team Status: Inactive Member Role Status Dates Dr. Mariano Ocampo MD Primary Care Provider Active Dr. Jasper Gee MD Attending Provider Active Team Status: Inactive Member Role Status Dates Dr. Mariano Ocampo MD Primary Care P rovider, Attending Provider, Referring Provider Active Team Status: Inactive Member Role Status Dates Dr. Mariano Ocampo MD Primary Care Provider Active Dr. Perry Ho MD Emergency Provider Active Learning Consultant Relationship Specialty Start Date End Date Mariano Ocampo MD [address] [place] [address] PCP - General 05/19/09 Team Status: Inactive Member Role Status Dates Dr. Mariano Ocampo MD Primary Care Provider Active Dr. Perry Ho MD Attending Provider, Emergency Pro vider Active Learning Consultant Relationship Specialty Start Date End Date Mariano Ocampo MD [address] [place] [address] PCP - General 05/19/09 Team Status: Inactive Member Role Status Dates Dr. Mariano Ocampo MD Primary Care Provider, Refer ring Provider Active Sharyn Gonzalez RADIOLOGY ASSISTANT, RADIOLOGY ASSISTANT-C Attending Provider Active Team Status: Inactive Member Role Status Dates Dr. Mariano Ocampo MD Primary Care Provider Active Dr. Art Ernandez , Emergency Provider Active Team Status: Inactive Member Role Status Dates Dr. Mariano Ocampo MD Primary Care Provider Active Dr. Anthony Poe DO Attending Provider, Referring P rovider Active Learning Consultant Relationship Specialty Start Date End Date Mariano Ocampo MD [address] [place] [address] PCP - General 05/19/09 Team Status: Inactive Member Role Status Dates Dr. Mariano Ocampo MD Primary Care Provider Active Dr. Art Ernandez DO Attending Provider, Emergency P rovider Active Team Status: Inactive Member Role Status Dates Dr. Mariano Ocampo MD Primary Care Provider Active Sharyn Gonzalez RADIOLOGY ASSISTANT, RADIOLOGY ASSISTANT-C Attending Provider Active Learning Consultant Relationship Specialty Start Date End Date Mariano Ocampo MD [address] [place] [address] PCP - General 05/19/09 Learning Consultant Relationship Specialty Start Date End Date Mariano Ocampo MD [address] [place] [address] PCP - General 05/19/09 Team Status: Inactive Member Role Status Dates Dr. Mariano Ocampo MD Primary Care Provider Active Dr. Anam Herrera DO Emergency Provider Active Learning Consultant Relationship Specialty Start Date End Date Mariano Ocampo MD [address] [place] [address] PCP - General 05/19/09 Learning Consultant Relationship Specialty Start Date End Date Mariano Ocampo MD [address] [place] [address] PCP - General 05/19/09 Learning Consultant Relationship Specialty Start Date End Date Mariano Ocampo MD [address] [place] [address] PCP - General 05/19/09 Learning Consultant Relationship Specialty Start Date End Date Mariano Ocampo MD [address] [place] [address] PCP - General 05/19/09 Learning Consultant Relationship Specialty Start Date End Date Mariano Ocampo MD [address] [place] [address] PCP - General 05/19/09 Learning Consultant Relationship Specialty Start Date End Date Mariano Ocampo MD [address] [place] [address] PCP - General 05/19/09 Learning Consultant Relationship Specialty Start Date End Date Mariano Ocampo MD [address] [place] [address] PCP - General 05/19/09 Learning Consultant Relationship Specialty Start Date End Date Mariano Ocampo MD [address] [place] [address] PCP - General 05/19/09 Learning Consultant Relationship Specialty Start Date End Date Mariano Ocampo MD [address] [place] [address] PCP - General 05/19/09 Learning Consultant Relationship Specialty Start Date End Date Mariano Ocampo MD [address] [place] [address] PCP - General 05/19/09 Learning Consultant Relationship Specialty Start Date End Date Mariano Ocampo MD [address] [place] [address] PCP - General 05/19/09 Jasper Gee MD [address] [place] [address] Cardiology 11/24/23 Learning Consultant Relationship Specialty Start Date End Date Mariano Ocampo MD [address] [place] [address] PCP - General 05/19/09 Jasper Gee MD [address] [address] Cardiology 11/24/23 Learning Consultant Relationship Specialty Start Date End Date Mariano Ocampo MD [address] [place] [address] PCP - General 05/19/09 Jasper Gee MD [address] [address] Cardiology 11/24/23 Learning Consultant Relationship Specialty Start Date End Date Mariano Ocampo MD [address] [place] [address] PCP - General 05/19/09 Jasper Gee MD [address] [place] [address] Cardiology 11/24/23 Learning Consultant Relationship Specialty Start Date End Date Mariano Ocampo MD [address] [place] [address] PCP - General 05/19/09 Learning Consultant Relationship Specialty Start Date End Date Mariano Ocampo MD [address] [place] [address] PCP - General 05/19/09 Jasper Gee MD [address] [place] [address] Cardiology 11/24/23 Learning Consultant Relationship Specialty Start Date End Date Mariano Ocampo MD [address] [place] [address] PCP - General 05/19/09 Jasper Gee MD [address] [place] [address] Cardiology 11/24/23 Learning Consultant Relationship Specialty Start Date End Date Mariano Ocampo MD [address] [place] [address] PCP - General 05/19/09 Jasper Gee MD [address] [place] [address] Cardiology 11/24/23 Learning Consultant Relationship Specialty Start Date End Date Mariano Ocampo MD [address] [place] [address] PCP - General 05/19/09 Jasper Gee MD [address] [place] [address] Cardiology 11/24/23 Yamel Lomeli, PROTOTYPE ENGINEER MANAGER.[email or web address] CLERK [address] [facility] [address] Emergency Veterinary Technician Internal Medicine 02/20/24 Learning Consultant Relationship Specialty Start Date End Date Mariano Ocampo MD [address] [place] [address] PCP - General 05/19/09 Jasper Gee MD [address] [address] Cardiology 11/24/23 Yamel Lomeli, PROTOTYPE ENGINEER MANAGER.[email or web address] CLERK [address] [place] [address] Emergency Veterinary Technician Internal Medicine 02/20/24 Learning Consultant Relationship Specialty Start Date End Date Mariano Ocampo MD [address] [place] [address] PCP - General 05/19/09 Jasper Gee MD [address] [address] Cardiology 11/24/23 Yamel Lomeli, PROTOTYPE ENGINEER MANAGER.[email or web address] CLERK [address] [place] [address] Emergency Veterinary Technician Internal Medicine 02/20/24 Learning Consultant Relationship Specialty Start Date End Date Mariano Ocampo MD [address] [place] [address] PCP - General 05/19/09 Jasper Gee MD [address] [place] [address] Cardiology 11/24/23 Yamel Lomeli, PROTOTYPE ENGINEER MANAGER.[email or web address] CLERK [address] [place] [address] Emergency Veterinary Technician Internal Medicine 02/20/24 Master Guerra MD [address] [place] [address] Hematology/Oncology 05/10/24 Cruzito Young RN [address] [place] [address] Specialty Manager Garage Hematology/Oncology 05/10/24 Learning Consultant Relationship Specialty Start Date End Date Mariano Ocampo MD [address] [place] [address] PCP - General 05/19/09 Jasper Gee MD [address] [place] [address] Cardiology 11/24/23 Yamel Lomeli, PROTOTYPE ENGINEER MANAGER.[email or web address] CLERK [address] [place] [address] Emergency Veterinary Technician Internal Medicine 02/20/24 Master Guerra MD [address] [place] [address] Hematology/Oncology 05/10/24 Cruzito Young, NEISHA [address] [place] [address] Specialty Manager Garage Hematology/Oncology 05/10/24 Learning Consultant Relationship Specialty Start Date End Date Mariano Ocampo MD [address] [place] [address] PCP - General 05/19/09 Jasper Gee MD [address] [place] [address] Cardiology 11/24/23 Yamel Lomeli, PROTOTYPE ENGINEER MANAGER.[email or web address] CLERK [address] [place] [address] Emergency Veterinary Technician Internal Medicine 02/20/24 Master Guerra MD [address] [place] [address] Hematology/Oncology 05/10/24 Cruzito Young RN [address] [place] [address] Specialty Manager Garage Hematology/Oncology 05/10/24 Learning Consultant Relationship Specialty Start Date End Date Mariano Ocampo MD [address] [place] [address] PCP - General 05/19/09 Jasper Gee MD [address] [place] [address] Cardiology 11/24/23 Yamel Lomeli, PROTOTYPE ENGINEER MANAGER.[email or web address] CLERK [address] [place] [address] Emergency Veterinary Technician Internal Medicine 02/20/24 Master Guerra MD [address] [place] [address] Hematology/Oncology 05/10/24 Cruzito Young, NEISHA [address] [place] [address] Specialty Manager Garage Hematology/Oncology 05/10/24 Learning Consultant Relationship Specialty Start Date End Date Mariano Ocampo MD [address] [place] [address] PCP - General 05/19/09 Jasper Gee MD [address] [place] [address] Cardiology 11/24/23 Yamel Lomeli, PROTOTYPE ENGINEER MANAGER.[email or web address] CLERK [address] [place] [address] Emergency Veterinary Technician Internal Medicine 02/20/24 Master Guerra MD [address] [place] [address] Hematology/Oncology 05/10/24 Cruzito Young, RN [address] [place] [address] Specialty Manager Garage Hematology/Oncology 05/10/24 Learning Consultant Relationship Specialty Start Date End Date Mariano Ocampo MD [address] [place] [address] PCP - General 05/19/09 Jasper Gee MD [address] [place] [address] Cardiology 11/24/23 Yamel Lomeli, PROTOTYPE ENGINEER MANAGER.CONTRACT CLERK [address] [place] [address] Emergency Veterinary Technician Internal Medicine 02/20/24 Master Guerra MD [address] [place] [address] Hematology/Oncology 05/10/24 Cruzito Young, NEISHA [address] [place] [address] Specialty Manager Garage Hematology/Oncology 05/10/24 Learning Consultant Relationship Specialty Start Date End Date Mariano Ocampo MD [address] [place] [address] PCP - General 05/19/09 Jasper Gee MD [address] [facility] [address] [place] [address] Cardiology 11/24/23 Yamel Lomeli, PROTOTYPE ENGINEER MANAGER.CONTRACT CLERK [address] [place] [address] Emergency Veterinary Technician Internal Medicine 02/20/24 Master Guerra MD [address] [place] [address] Hematology/Oncology 05/10/24 Cruzito Young, NEISHA [address] [place] [address] Specialty Manager Garage Hematology/Oncology 05/10/24 Learning Consultant Relationship Specialty Start Date End Date Ocampo, Sherly, MD [address] [place] [address] PCP - General 05/19/09 Jasper Gee MD [address] [place] [address] Cardiology 11/24/23 Yamel Lomeli, PROTOTYPE ENGINEER MANAGER.CONTRACT CLERK [address] [place] [address] Emergency Veterinary Technician Internal Medicine 02/20/24 Master Guerra MD [address] [place] [address] Hematology/Oncology 05/10/24 Cruzito Young, RN [address] [place] [place] [address] Specialty Manager Garage Hematology/Oncology 05/10/24 Learning Consultant Relationship Specialty Start Date End Date Mariano Ocampo MD [address] [place] [address] PCP - General 05/19/09 Jasper Gee MD [address] [facility] [address] [place] [address] Cardiology 11/24/23 Yamel Lomeli, PROTOTYPE ENGINEER MANAGER.CONTRACT CLERK [address] [place] [address] Emergency Veterinary Technician Internal Medicine 02/20/24 Master Guerra MD [address] [place] [address] Hematology/Oncology 05/10/24 Cruzito Young, RN [address] [place] [address] Specialty Manager Garage Hematology/Oncology 05/10/24 Learning Consultant Relationship Specialty Start Date End Date Mariano Ocampo MD [address] [place] [address] PCP - General 05/19/09 Jasper Gee MD [address] [address] Cardiology 11/24/23 Yamel Lomeli, PROTOTYPE ENGINEER MANAGER.CONTRACT CLERK [address] [place], [place] [address] Emergency Veterinary Technician Internal Medicine 02/20/24 Master Guerra MD [address] [place] [address] Hematology/Oncology 05/10/24 Cruzito Young, NEISHA [address] [place] [address] Specialty Manager Garage Hematology/Oncology 05/10/24 Team Status: Inactive Member Role Status Dates Dr. Mariano Ocampo MD Primary Care Provider Active Start: August 07, 2024 End: August 07, 2024 Dr. Mariano Ocampo MD Referring Provider Active Start: August 07, 2024 End: August 07, 2024 SANDY Alston Attending Provider Active St art: August 07, 2024 End: August 07, 2024 Team Status: Inactive Member Role Status Dates Dr. Mariano Ocampo MD Primary Care Provider Active Start: August 09, 2024 End: August 09, 2024 SANDY Alston Attending Provider Active art: August 09, 2024 End: August 09, 2024 SANDY Alston Referring Provider Active art: August 09, 2024 End: August 09, 2024 Goals (unrecognized section and content) Goals may be documented in a n alternate sectionGoals may be documented in an alternate sectionGoals may be documented in an alternate sectionGoals may be documented in an alternate sectionGoals may be documented in an alternate sectionGoals may be documented in an alternate sectionGoals may be documented in an alternate sectionGoals may be documented in an alternate sectionGoals may be documented in an alternate sectionGoals may be documented in an alternate sectionGoals may be documented in an alternate sectionGoals may be documented in an alternate sectionGoals may be documented in an alternate sectionGoals may be documented in an alternate sectionGoals may be documented in an alternate section Scheduled Active and Recently Administ ered Medications (unrecognized section and content) Medication Order 09/19/2022 09/20/2022 09/21/2022 amLODIPine (Norvasc) tablet 2.5 mg 2.5 mg, Oral, Daily, First dose on Tue09/20/22 at 1415 1415 (Canceled Entry - Provider: Automatic Discharge Provider - Comment: Automatically canceled at discontinue of medication order) 0747 (Given - Provider: Billy Campo RN) ascorbic acid (Vitamin C) tablet 250 mg 250 mg, Oral, Daily, First dose on Tue09/20/22 at 1415 1415 (Canceled Entry - Provider: Automatic Discharge Provider - Comment: Automatically canceled at discontinue of medication order) 0748 (Given - Provider: Billy Campo RN) aspirin EC tablet 81 mg 81 mg, Oral, Daily, First dose on Tue09/21/22 at 0900, Do not crush, chew, or split. 0747 (Given - Provid er: Billy Campo RN) atorvastatin (Lipitor) tablet 10 mg (CANCELED) 10 mg, Oral, Nightly, First dose on Tue09/20/22 at 2100 2036 (Given - Provider: Mingo Lea) atorvastatin (Lipitor) tablet 80 mg 80 mg, Oral, Nightly, First dose (after last modification) on Tue09/21/22 at 2100 diazePAM (Valium) tablet 5 mg (COMPLETED) 5 mg, Oral, Once, On Tue09/20/22 at 0900, For 1 dose, Preprocedure 0858 (Given - Provider: Nani Schaffer, NEISHA) diphenhydrAMINE (BENADryl) tablet/capsule 25 mg (COMPLETED) 25 mg, Oral, Once, On Tue09/20/22 at 0900, For 1 dose, Preprocedure, One hour prior to procedure if allergic to dye. 0858 (Given - Provider: Nani Schaffer, NEISHA) finasteride (Proscar) tablet 5 mg 5 mg, Oral, Daily, First dose on Tue09/20/22 at 1415, Women should not handle crushed or broken finasteride tablets when they are or may potentially be , due to potential risk to the fetus. Do not crush, chew, or split. 1415 (Canceled Entry - Provider: Automatic Discharge Provider - Comment: Automatically canceled at discontinue of medication order) 0747 (Given - Provider: Billy Campo RN) fluticasone (Flonase) nasal spray 1 spray 1 spray, Each Nostril, Daily, First dose on Tue09/20/22 at 1415, Shake gently. Before first use, prime pump (press 6 times until fine spray appears). After use, clean tip and replace cap. 1415 (Canceled Entry - Provider: Automatic Discharge Provider - Comment: Automatically canceled at discontinue of medication order) 0900 (Not Given - Provider: Keeley Manning RN - Reason: Medication not available) metoprolol succinate XL (Toprol-XL) 24 hr tablet 25 mg 25 mg, Oral, Nightly, First dose on Tue09/21/22 at 2100, Do not crush or chew. pantoprazole (ProtoNix) EC tablet 40 mg 40 mg, Oral, Daily before breakfast, First dose on Tue09/21/22 at 0700, Substituted for omeprazole (Prilosec). Do not crush, chew, or split. 0654 (Given - Provid er: Mingo Lea) ticagrelor (Brilinta) tablet 90 mg 90 mg, Oral, 2 times daily, First dose on Tue09/20/22 at 1800, For 365 days 1801 (Given - Provider: Ilsa Ballard, RN) 0746 (Given - Provider: Billy Campo, RN) Continuous Medication Order 09/19/2022 09/20/2022 09/21/2022 sodium [...] (CHARGE ONLY) (CANCELED) As needed, Starting on 09/20/22 at 1118, Intraprocedure 1118 (Given - Provider: Jen Swain RN) (unrecognized sect ion and content) No Status Records FoundNo Status Records FoundNo Status Records FoundNo Status Records FoundNo Status Records Found INFORMATION SOURCE (unrecogn ized section and content) DATE CREATED AUTHOR 10/18/2022 [facility] DATE CREATED AUTHOR AUTHOR'S ORGANIZ ATION 08/19/2023 [facility] DATE CREATED AUTHOR AUTHOR'S ORGANIZ ATION 09/03/2023 [facility] DATE CREATED AUTHOR AUTHOR'S ORGANIZ ATION 08/17/2024 [facility] DATE CREATED AUTHOR AUTHOR'S ORGANIZ ATION 09/02/2024 [facility] FOR RECORDS PERTAINING TO PATIENTS WHO [...] BE BASED ON THE PRIMARY CLINICAL RECORDS. [employer] [facility] provides no warranty or guarantee of the accuracy or completeness of information in this document.
[2024-09-04 07:33] LABS: Anion Gap 11 (5-15); BUN 25 mg/dL (4-19); BUN/Creat Ratio 18.6 RATIO (10-20); Calcium,Total 9.9 mg/dL (7.6-11.0); Carbon Dioxide 26.7 mmol/L (21.0-32.0); Chloride 103 mmol/L (98-108); Creatinine, Serum 1.32 mg/dL (0.70-1.20); EST Glomerular Filtration Rate 53 (>60); Glucose 119 mg/dL (70-99); Potassium 3.9 mmol/L (3.3-5.1); Sodium Level 141 mmol/L (133-145)
--- NOTE | 2024-09-05 07:43 | STRESSREP ---
Stress Test Report Pharmacologic myocardial perfusion stress test. 88-year-old male with a history of chest pain Resting EKG demonstrates sinus bradycardia with a rate of 57 bpm. Resting blood pressure is 102/60 mmHg. 0.4 mg of regadenoson was infused per usual protocol followed by rapid intravenous saline flush injection. Continuous EKG monitoring was performed. The maximum heart rate was 96 bpm which was 71% of max impacted heart rate the maximum workload was 1 metabolic equivalent. At rest there were no ST or T wave changes noted to suggest ischemia and at peak infusion nonspecific ST changes were noted which did not meet the criteria for ischemia. No clinical angina is noted. The final blood pressure was 106/56 mmHg. Myocardial perfusion protocol. 12 mCi of technetium 99m sestamibi was injected at rest. 0.4 mg of regadenoson was infused per usual protocol. At peak infusion 36 point mCi of technetium 99m sestamibi was injected stress images were obtained stress and rest images were reconstructed and compared in the short axis vertical long and horizontal long axis. Gated images were also obtained. Perfusion SPECT analysis: Review of the stress images demonstrate normal uptake of tracer noted in all areas of the myocardium. A defect is noted in the mid to distal anterior wall. The resting images demonstrate a similar pattern with a defect noted in the mid to distal anterior wall. Previous anterior infarct cannot be completely excluded. No obvious reversibility is noted suggest ischemia. Gated SPECT analysis: The gated ejection fraction is 82%. Conclusion: Normal pharmacologic myocardial perfusion stress test. Preserved ejection fraction. Previous anterior infarct is present.
== END | disposition home or self-care (01) ==
LOC: CVS 06:31
PROVIDERS: PCP Internal Medicine; Referring Provider Student in an Organized Health Care Education/Training Program; Visit Provider Student in an Organized Health Care Education/Training Program
DX: I25.10 Atherosclerotic heart disease of native coronary artery without angina pectoris (principal); E87.6 Hypokalemia; R06.09 Other forms of dyspnea; R53.83 Other fatigue; Z95.5 Presence of coronary angioplasty implant and graft
CPT/HCPCS: 36415; 78452; 80048; 93017; A9500; A4216; J2785

== ENCOUNTER → 2024-09-13 | Outpatient (CLI) | payer MEDICARE, SELFPAY ==
[2023-01-26 08:33] VITALS: BMI 23.8
[2024-09-13 09:14] LABS: Anion Gap 11 (5-15); BUN 23 mg/dL (4-19); BUN/Creat Ratio 20.8 RATIO (10-20); Calcium,Total 9.5 mg/dL (7.6-11.0); Carbon Dioxide 26.1 mmol/L (21.0-32.0); Chloride 105 mmol/L (98-108); Glucose 109 mg/dL (70-99); Potassium 4.1 mmol/L (3.3-5.1)
== END | disposition home or self-care (01) ==
LOC: LAB 07:38
PROVIDERS: Student in an Organized Health Care Education/Training Program; PCP Internal Medicine; Referring Provider Physician Assistant Medical; Visit Provider Physician Assistant Medical
DX: R79.89 Other specified abnormal findings of blood chemistry (principal)
CPT/HCPCS: 36415; 80048